=== PATIENT | female | born 1980 | race Caucasian/White ===

== ENCOUNTER 2016-10-18 09:08 | Inpatient (IN) ==
[~2016-10-18 09:08] MED LIST: *HR* Etomidate 20 MG/10 ML AMPUL IVP ONE; *HR* Succinylcholine 200 MG/10 ML VIAL IVP ONE
[2016-10-18] MEDS ORDERED: Ipratropium/Albuterol Neb 3 ML ONE (09:11)
[2016-10-18] MEDS ORDERED: Ipratropium/Albuterol Neb 3 ML IH ONE (09:18)
[2016-10-18] MEDS ORDERED: Piperacillin/Tazobactam 4.5 GM in D5% in Water (Mini-Bag+) 100 ML IVPB ONE (09:19)
[2016-10-18] MEDS ORDERED: 0.9 % Sodium Chloride 1,000 ML IVC ONE (09:22)
--- NOTE | 2016-10-18 09:25 | Emergency Department Note ---
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 The patient said she has had several days of shortness of breath was significantly worsened this morning, worse with exertion, worsened at home, no medication has been used. She does have cough and rhinorrhea but no hemoptysis. No sneezing. No recorded fever or blurred vision. Does have pain and swelling of the lower extremities. No bruising of the skin or skin rash. No blood in the urine or stool. No weight loss. She has received radiation for her brain tumor at the [facility] but has not had chemotherapy or surgery. Social history: Smoker, lives with her and children - Related Data Home Medications Medication Instructions Recorded Confirmed Folic Acid 1 mg PO DAILY 06/17/16 10/18/16 Previous Rx's Medication Instructions Recorded Albuterol Sulfate [Albuterol 2 puff IH Q4HR PRN #1 unit 11/15/15 Inhaler] Docusate Sodium [Dok] 250 mg PO DAILY #30 capsule 03/09/16 Biotin/Calcium Carbonate [Biotin 1 each PO DAILY #30 tablet 04/17/16 800 Mcg Tablet] Simethicone [Gas-X] 80 mg PO DAILY #30 tab.chew 08/16/16 Ondansetron [Zofran ODT] 8 mg SL Q4HR #120 tab.rapdis 08/28/16 Ascorbic Acid [Vitamin C] 1 tab PO DAILY #30 tablet 09/11/16 Bisacodyl [Dulcolax] 5 - 10 mg PO DAILY PRN #60 tablet 09/11/16 Ferrous Sulfate [Iron] 325 mg PO DAILY #30 capsule.er 09/11/16 Nystatin [Nystatin Suspension] 5 ml PO QID #120 ml 09/17/16 Guaifenesin 200 mg PO Q4H PRN #180 tablet 09/27/16 Gabapentin [Neurontin] 800 mg PO QID #120 tablet 10/05/16 HYDROcodone/Acet 10/325 mg [[place] 1 - 2 tab PO Q4HR PRN #240 tab 10/05/16 10-325 mg] Alprazolam [Xanax 1 MG Tablet] 1 - 2 mg PO TID PRN #126 tablet 10/15/16 Dexamethasone [Decadron] 4 mg PO BID #60 tablet 10/15/16 Famotidine [Pepcid] 20 mg PO DAILY #30 tablet 10/15/16 Allergies Allergy/AdvReac Type Severity Reaction Status Date / Time ethinyl estradiol Allergy Hives Verified 03/27/16 17:05 [From [employer] (28)] norgestimate Allergy Hives Verified 03/27/16 17:05 [From [employer] (28)] Review of Systems: Constitutional: No fever Vision: No blurred vision ENT: + rhinorrhea Respiratory: + cough Allergic: No allergies : No blood in urine GI: No blood in stool Hematologic: No bruising Dermatologic: No skin rash Musculoskeletal: + pain in the extremities Neuro: No numbness of the extremities Past Medical History - Past Medical History Medical history: Reports: asthma, cancer, seizures Surgical history: Reports: other Psychiatric history: Reports: depression 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 EYES: PERRL, no scleral icterus. NOSE: The nose is normal in appearance without rhinorrhea RESP: Normal chest excursion with respiration; breath sounds with bilateral symmetric coarse crackles and wheezing CARD: Regular rhythm, without murmurs, rub or gallop ABD: Non-distended; non-tender, soft,without rigidity, rebound or guarding SKIN: Normal for age and race; warm and dry; no apparent lesions Extremities: No swelling lower extremities - General Limitations: other General appearance: alert, in distress Course Vital Signs Temperature 99.8 F H 10/18/16 09:10 Pulse Rate 130 10/18/16 09:10 Respiratory Rate 34 10/18/16 09:10 Blood Pressure 94/39 10/18/16 09:10 O2 Sat by Pulse Oximetry 97 10/18/16 09:10 Temperature 97.0 F L 10/18/16 20:53 Pulse Rate 71 10/18/16 20:48 Respiratory Rate 15 10/18/16 20:48 Blood Pressure 97/62 10/18/16 20:48 O2 Sat by Pulse Oximetry 95 10/18/16 20:48 Oxygen Delivery Oxygen Delivery Ventilator Shortness of Breath/Dyspnea - MDM Narrative Medical decision making narrative: I did see the patient upon arrival, she is placed on a BiPAP, 2 L IV fluid bolus , stat portable chest x-ray, labs, Zosyn and vancomycin, will be admitted to intensive care unit. Patient states that she would agree to intubation if necessary but only as last resort. No family history is yet here. 9:27 I did go back and check on the patient again. Her oxygen saturation is 99% on BiPAP but she is still very tachypneic With a rate in the 40s. I did have a long conversation with the states the patient does have inoperable brain cancer and she has been treated at the [facility]. Is not currently taking antibiotics. He thinks that the paramedics got an oxygen saturation in the 80s at home. He states the patient does use home oxygen. The patient will need to be intubated but I we will fluid resuscitate first. I did review the separable chest x-ray which does show interstitial infiltrates which could be from edema versus infection. 0942 I did review the EKG showing sinus tachycardia rate of 129 bpm. Patient is tiring out. She agrees to intubation. Will be given succinylcholine 100 mg and etomidate 10 mg. The patient's is not in the emergency department at this time but we will try to locate him. 0950 I did discuss with the who is at bedside. He is also comfortable with the approach. Procedure: The patient did receive etomidate 10 mg and succinylcholine 100 mg and the patient had an oxygen saturation of 99% and the patient was easily intubated on the first attempt with good bilateral breath sounds and no air auscultated over the stomach and the CO2 monitor did confirm placement/have good color change. I will discuss further with the avionics mechanic ICU admission. Postintubation chest x-ray will be ordered. The patient will be placed on propofol with a bolus then drip 1008 Critical care time: 40 minutes I did speak with Dr. Lott who is the smokehouse operator with pulmonary and she will confirm that availability and accept the patient for admission 1032 Accepted by avionics mechanic. ABG ordered. Resident is here to see the pt 1049 - Medical Records Medical records reviewed: Yes I reviewed the patient's medical records. - Lab Data Lab results reviewed: Yes I reviewed the patient's lab results. Result diagrams: 10/18/16 09:46 10/18/16 09:46 Lab Results 10/18/16 10/18/16 10/18/16 Range/Units 09:46 09:46 09:46 WBC 13.7 H (4.3-11.1) K/mcL RBC 3.85 (3.82-4.97) M/mcL Hgb 11.7 (11.5-15.4) g/dL Hct 37.7 (35.3-44.9) % MCV 97.9 (83.0-100.0) fL MCH 30.4 (28.0-33.3) pg MCHC 31.0 L (31.6-35.5) g/dL RDW 16.8 H (11.5-14.5) % Plt Count 307 (140-400) K/mcL MPV 9.5 (9.4-12.4) fL Seg Neutrophils % 60.0 % Band Neutrophils % 24.0 H (0-4) % Lymphocytes % 16.0 % Neutrophils # 11.5 H (1.6-8.9) K/mcL Lymphocytes # 2.2 (0.6-4.6) K/mcL Toxic Granulation Present A (Not Present) Dohle Bodies Present A (Not Present) Platelet Estimate Normal (Normal) Sodium 143 (136-145) mEq/L Potassium 3.8 (3.5-4.5) mEq/L Chloride 105 (98-109) mEq/L Carbon Dioxide 27 (19-29) mEq/L BUN 9 (7-20) mg/dL Creatinine 0.63 (0.57-1.11) mg/dL Est GFR ( Amer) > 60 (> 60) Est GFR (Non-Af Amer) > 60 (> 60) BUN/Creatinine Ratio 14 (6-26) Glucose 87 (70-99) mg/dL Calculated Osmolality 294 (280-300) Lactic Acid 0.9 (0.5-2.2) mmol/L Calcium 9.6 (8.6-10.8) mg/dL B-Natriuretic Peptide (0-100) pg/mL 10/18/16 Range/Units 09:46 WBC (4.3-11.1) K/mcL RBC (3.82-4.97) M/mcL Hgb (11.5-15.4) g/dL Hct (35.3-44.9) % MCV (83.0-100.0) fL MCH (28.0-33.3) pg MCHC (31.6-35.5) g/dL RDW (11.5-14.5) % Plt Count (140-400) K/mcL MPV (9.4-12.4) fL Seg Neutrophils % % Band Neutrophils % (0-4) % Lymphocytes % % Neutrophils # (1.6-8.9) K/mcL Lymphocytes # (0.6-4.6) K/mcL Toxic Granulation (Not Present) Dohle Bodies (Not Present) Platelet Estimate (Normal) Sodium (136-145) mEq/L Potassium (3.5-4.5) mEq/L Chloride (98-109) mEq/L Carbon Dioxide (19-29) mEq/L BUN (7-20) mg/dL Creatinine (0.57-1.11) mg/dL Est GFR ( Amer) (> 60) Est GFR (Non-Af Amer) (> 60) BUN/Creatinine Ratio (6-26) Glucose (70-99) mg/dL Calculated Osmolality (280-300) Lactic Acid (0.5-2.2) mmol/L Calcium (8.6-10.8) mg/dL B-Natriuretic Peptide 22 (0-100) pg/mL - Radiology Data Radiology results reviewed: Yes I reviewed the patient's radiology results. Chest X-Ray 10/18/16 10:12 IMPRESSION: Diffuse increased interstitial changes are identified throughout the lungs bilaterally, with some areas of nodular like opacity. This could represent alveolar and interstitial disease in the setting of edema or infection, however recommend follow-up radiographs to document resolution as underlying diffuse pulmonary nodules are also in the differential in a patient with a history of cancer. D/ / Neftali Walters MD / Neftali Walters MD Interpreting Provider: Neftali Walters MD - EKG Data EKG attestation: Yes I reviewed and interpreted this EKG.
[2016-10-18] MEDS ORDERED: Ondansetron 4 MG/2 ML VIAL IVP ONE (09:27)
[2016-10-18] MEDS ORDERED: *HR* Etomidate 20 MG/10 ML AMPUL IVP ONE (09:48)
[2016-10-18] MEDS ORDERED: *HR* Succinylcholine 200 MG/10 ML VIAL IVP ONE (09:48)
[2016-10-18 09:53] LABS: Hematocrit 37.7 % (35.3-44.9); Hemoglobin 11.7 g/dL (11.5-15.4); Mean Corpuscular Hemoglobin 30.4 pg (28.0-33.3); Mean Corpuscular Volume 97.9 fL (83.0-100.0); Mean Platelet Volume 9.5 fL (9.4-12.4); Platelet Count 307 K/mcL (140-400); Red Blood Count 3.85 M/mcL (3.82-4.97); Red Cell Distribution Width 16.8 % (11.5-14.5)
[2016-10-18] MEDS ORDERED: Vancomycin 1,000 MG in D5% in Water 250 ML IVPB ONE (10:00)
[2016-10-18] MEDS: *HR* Morphine 2 MG/ML SYRINGE IVP ONE ×3 (10:08→10:28)
[2016-10-18] MEDS ORDERED: *HR* Propofol 500 MG/50 ML BOTTLE IVP ONE (10:08)
[2016-10-18] MEDS ORDERED: Propofol 500 MG/50 ML INFUS..BTL ONE (10:11)
[2016-10-18 10:12] LABS: BUN/Creatinine Ratio 14 (6-26); Blood Urea Nitrogen 9 mg/dL (7-20); Calcium 9.6 mg/dL (8.6-10.8); Carbon Dioxide 27 mEq/L (19-29); Chloride 105 mEq/L (98-109); Glucose 87 mg/dL (70-99); Osmolality,Calculated 294 (280-300); Potassium 3.8 mEq/L (3.5-4.5); Sodium 143 mEq/L (136-145); eGFR For African Americans > 60 (> 60); eGFR For Non-African Americans > 60 (> 60)
[2016-10-18] MEDS ORDERED: Propofol 500 MG/50 ML INFUS..BTL IVC SCH (10:15)
[2016-10-18] MEDS ORDERED: *HR* Morphine 2 MG/ML SYRINGE IVP ONE (10:27)
[2016-10-18 10:32] LABS: Lymphocytes # 2.2 K/mcL (0.6-4.6); Neutrophils # 11.5 K/mcL (1.6-8.9)
[2016-10-18 10:33] LABS: Dohle Bodies Present (Not Present); Platelet Estimate Normal (Normal); Toxic Granulation Present (Not Present)
[2016-10-18] MEDS ORDERED: 0.9 % Sodium Chloride 1,000 ML ONE (10:54)
[2016-10-18] MEDS ORDERED: Acetaminophen 325 MG TABLET PO PRN (11:25)
[2016-10-18] MEDS ORDERED: Naloxone 0.4 MG/ML INJ IVP PRN (11:25)
[2016-10-18] MEDS ORDERED: Lacri-Lube 3.5 GM TUBE BOTH EYES PRN (11:29)
[2016-10-18 11:36] LABS: ABG Base Excess 1.7 mEq/L (-2.0 to 3.0); ABG HCO3 28.1 mEQ/L (21-27); ABG Oxygen Saturation 99 % (95-98); ABG PCO2 52 mmHg (35-45); ABG PH 7.34 pH Units (7.32-7.45); ABG PO2 120 mmHg (85-104); ABG TCO2 29.7 mEq/L (20-26)
[2016-10-18 11:37] LABS: Blood Gas FiO2 50 %
[2016-10-18] MEDS: Ipratropium/Albuterol Neb 3 ML IH SCH ×3 (11:50→20:09)
[2016-10-18] MEDS: Lacri-Lube 3.5 GM TUBE BOTH EYES SCH ×4 (12:52→23:10)
[2016-10-18] MEDS: Gabapentin 400 MG CAPSULE PO SCH ×3 (13:00→19:46)
--- NOTE | 2016-10-18 13:07 | Pulmonology History & Physical ---
<Isma Escalante - Last Filed: 10/18/16 12:56> Date of Encounter: 10/18/16 Time of Encounter: 12:57 Assessment and Plan (1) Acute and chronic respiratory failure Current visit: Yes Status: Acute 35 y/o F hx of pontine glioma s/p radiation therapy, cigarette smoking, aspiration pneumonia, dysphagia COPD on 4L home O2 presented with worsening sob and productive cough of one week with chills. Patient had to increase O2 to 5L at home. Patient was tachypneic on arrival and started on BIPAP. Her O2 saturations were well maintained, but her work of breathing worsened. CXR showed new interstitial infiltrates. Patient began tiring out and agreed to intubation. WBC 13 with 24% bands, lactic acid 0.9. ABG: pH 7.34 pCO2 52 pO2 120 on AC mode 2nd to aspiraiton/HAP Patient has hx of dysphagia 2nd to pontine glioma and multiple instances of aspiration pneumonia in the past. In the past she had PEG tube but it was removed in May 2016. Since then patient' s says she has had 7-8 occurances of pneumonia. Given vanc and zosyn in ED. Will continue this and start levaquin to cover atypicals sputum, blood cultures, respiratory infectious panel sent. Duonebs, steroids, symbicort legionella and strep urine antigens sent repeat CXR tomorrow morning CBC, BMP AM NPO Fentanyl and propofol for sedation GI prophylaxis Qualifiers: Respiratory failure complication: hypoxia and hypercapnia Qualified Code(s) : J96.21 - Acute and chronic respiratory failure with hypoxia; J96.22 - Acute and chronic respiratory failure with hypercapnia (2) Aspiration pneumonia Current visit: No Status: Suspected as stated above. Qualifiers: Aspiration pneumonia type: unspecified Laterality: bilateral Lung location: unspecified part of lung Qualified Code(s): J69.0 - Pneumonitis due to inhalation of food and vomit (3) Brain cancer Current visit: Yes Status: Acute Pontine glioma diagnosed in 2014. Has undergone radiation therapy (last dose in september 2016). Not candidate for surgical therapy. Patient decided not to undergo chemo due to side effects profile. has hx of dysphagia, slurred speech, right sided weakness and seizures (stated 2nd to benzodiazepine withdrawal) on dexamethasone to prevent inflammation 2nd to tumor. 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 will d/c for now as patient is sedated with propofol and fentanyl (5) DVT prophylaxis Current visit: Yes Status: Acute EPCDs and lovenox 30mg daily. (6) Infestation by bed bug Current visit: Yes Status: Acute Found to have bed bugs and head lice. -room was cleaned and patient's clothes were changed -will order nix History of Present Illness Chief complaint: dyspnea HPI: Ms. Perez is a 35 year old female presented with complaint of worsening dyspnea of one week with productive yellow sputum, chills. Had to increase her home oxygen from 4 to 5L. Sick contacts include her children who had URI. This hx was obtained from patient's as she was intubated at this point. Patient RR was 40 on presentation. She was initially placed on BiPAP but became tired due to work of breathing and agreed to be intubated. Patient has hx of cigarette smoking 18 pack year hx, COPD, and on 4L home O2. WBC 13, BANDs 24% CXR showed diffuse b/l interstitial changes possibly atypical pneumonia. BNP 22 , lactic acid 0.9. Patient was diagnosed with brainstem glioma in Fall of 2014. Since then she has had dysphagia, slurred speech. Patient has gone radiation therapy. She had PEG tube placed last year 12/2015 due to her dysphagia and recurrent aspiration pneumonia. PEG tube was removed May 2016 and since then patient has had pneumonia 7-8x. She is on dexamethasone chronically to decrease inflammation. She was last admitted to [facility] in June for aspiration pneumonia but left [place] before she could be evaluated and treated. Past Med Surg Social Fam HX - Past Medical History Medical history: asthma, cancer, seizures Psychiatric history: depression - Past Surgical History Surgical History: other - Social History Smoking Status: Current some day smoker Smokeless Tobacco Status: No Alcohol use: none Drug use: none Medications and Allergies Albuterol Sulfate [Albuterol Inhaler] 2 puff IH Q4HR PRN #1 unit 11/15/15 [Rx] Docusate Sodium [Dok] 250 mg PO DAILY #30 capsule 03/09/16 [Rx] Biotin/Calcium Carbonate [Biotin 800 Mcg Tablet] 1 each PO DAILY #30 tablet 10/28 [Rx] Folic Acid 1 mg PO DAILY 06/17/16 [History] Simethicone [Gas-X] 80 mg PO DAILY #30 tab.chew 08/16/16 [Rx] Ondansetron [Zofran ODT] 8 mg SL Q4HR #120 tab.rapdis 08/28/16 [Rx] Ascorbic Acid [Vitamin C] 1 tab PO DAILY #30 tablet 09/11/16 [Rx] Bisacodyl [Dulcolax] 5 - 10 mg PO DAILY PRN #60 tablet 09/11/16 [Rx] Ferrous Sulfate [Iron] 325 mg PO DAILY #30 capsule.er 09/11/16 [Rx] Nystatin [Nystatin Suspension] 5 ml PO QID #120 ml 09/17/16 [Rx] Guaifenesin 200 mg PO Q4H PRN #180 tablet 09/27/16 [Rx] Gabapentin [Neurontin] 800 mg PO QID #120 tablet 10/05/16 [Rx] HYDROcodone/Acet 10/325 mg [Liberal 10-325 mg] 1 - 2 tab PO Q4HR PRN #240 tab [Rx] Alprazolam [Xanax 1 MG Tablet] 1 - 2 mg PO TID PRN #126 tablet 10/15/16 [Rx] Dexamethasone [Decadron] 4 mg PO BID #60 tablet 10/15/16 [Rx] Famotidine [Pepcid] 20 mg PO DAILY #30 tablet 10/15/16 [Rx] Allergies ethinyl estradiol [From [employer] (28)] Allergy (Verified 03/27/16 17:05) Hives norgestimate [From [employer] (28)] Allergy (Verified 03/27/16 17:05) Hives ROS unobtainable: due to endotracheal tube, due to mental status All Systems: A 10-system review of systems was performed and is negative for pertinent findings except as documented above in the HPI. Physical Examination Vital Signs: Vital Signs, Last 4 Hours Temp Pulse Resp BP Pulse Ox 10/18/16 12:01 98.5 F 95 20 103/66 95 10/18/16 11:50 22 134/85 94 10/18/16 11:23 16 95/54 General appearance: no acute distress, alert Eyes: nonicteric Mallampati (class): 2 Neck: no JVD Effort: mildly labored, other (Mechanical ventilation ) Auscultation: bilateral: other (b/l coarse ) Cardiovascular: regular rate and rhythm Gastrointestinal: normoactive bowel sounds, soft, non-tender, non-distended Integumentary: normal Extremities: no cyanosis, no edema, no clubbing, pink and warm, pulses normal Musculoskeletal: no deformities unable to assess due to mental status Results - Laboratory Findings CBC and BMP: 10/18/16 09:46 10/18/16 09:46 ABG ABG pH 7.34 pH Units (7.32-7.45) 10/18/16 11:25 ABG pCO2 52 mmHg (35-45) H 10/18/16 11:25 ABG pO2 120 mmHg (85-104) H 10/18/16 11:25 ABG O2 Saturation 99 % (95-98) H 10/18/16 11:25 Abnormal lab findings: Abnormal lab results WBC 13.7 K/mcL (4.3-11.1) H 10/18/16 09:46 MCHC 31.0 g/dL (31.6-35.5) L 10/18/16 09:46 RDW 16.8 % (11.5-14.5) H 10/18/16 09:46 Band Neutrophils % 24.0 % (0-4) H 10/18/16 09:46 Neutrophils # 11.5 K/mcL (1.6-8.9) H 10/18/16 09:46 Toxic Granulation Present (Not Present) A 10/18/16 09:46 Dohle Bodies Present (Not Present) A 10/18/16 09:46 ABG pCO2 52 mmHg (35-45) H 10/18/16 11:25 ABG pO2 120 mmHg (85-104) H 10/18/16 11:25 ABG HCO3 28.1 mEQ/L (21-27) H 10/18/16 11:25 ABG Total CO2 29.7 mEq/L (20-26) H 10/18/16 11:25 ABG O2 Saturation 99 % (95-98) H 10/18/16 11:25 POC Glucose 109 (58-89) H 10/18/16 11:56 - Diagnostic Findings Chest x-ray: report reviewed <KathieanaCheryl velarde Maryellen - Last Filed: 10/18/16 15:39> Date of Encounter: 10/18/16 History of Present Illness HPI: Ms. Perez is a 35 year old female All Systems: A 10-system review of systems was performed and is negative for pertinent findings except as documented above in the HPI. Physical Examination Vital Signs: Vital Signs, Last 4 Hours Temp Pulse Resp BP Pulse Ox 10/18/16 15:00 89 21 90/67 96 10/18/16 14:00 91 20 94/61 95 10/18/16 13:01 92 21 96/77 94 10/18/16 13:00 18 102/70 93 10/18/16 12:01 98.5 F 95 20 103/66 95 10/18/16 11:50 22 134/85 94 10/18/16 11:23 16 95/54 Results - Laboratory Findings CBC and BMP: 10/18/16 09:46 10/18/16 09:46 ABG ABG pH 7.34 pH Units (7.32-7.45) 10/18/16 11:25 ABG pCO2 52 mmHg (35-45) H 10/18/16 11:25 ABG pO2 120 mmHg (85-104) H 10/18/16 11:25 ABG O2 Saturation 99 % (95-98) H 10/18/16 11:25 Abnormal lab findings: Abnormal lab results WBC 13.7 K/mcL (4.3-11.1) H 10/18/16 09:46 MCHC 31.0 g/dL (31.6-35.5) L 10/18/16 09:46 RDW 16.8 % (11.5-14.5) H 10/18/16 09:46 Band Neutrophils % 24.0 % (0-4) H 10/18/16 09:46 Neutrophils # 11.5 K/mcL (1.6-8.9) H 10/18/16 09:46 Toxic Granulation Present (Not Present) A 10/18/16 09:46 Dohle Bodies Present (Not Present) A 10/18/16 09:46 ABG pCO2 52 mmHg (35-45) H 10/18/16 11:25 ABG pO2 120 mmHg (85-104) H 10/18/16 11:25 ABG HCO3 28.1 mEQ/L (21-27) H 10/18/16 11:25 ABG Total CO2 29.7 mEq/L (20-26) H 10/18/16 11:25 ABG O2 Saturation 99 % (95-98) H 10/18/16 11:25 POC Glucose 109 (58-89) H 10/18/16 11:56 - Attending Attestation I examined this patient and my medical decision-making was reviewed with the TRANSPORT PILOT/PA/Advanced Practice Nurse/Resident Physician. I agree with the documented findings, disposition and treatment plan as described except to the extent set forth below. Patient seen and examined. Labs, radiology, chart personally reviewed. Agree with resident's history and physical, assessment, plan with following comments: ELEVATOR SUPERVISOR: Patient follows commands, Will adjust sedation to keep patient comfortable and vent synchrony. Pulmonary: Acceptable oxygenation and ventilation. Changed vent to VC+ for more comfort and tried SBT with pressure support, however patient didn't feel comfortable and changed to full support again. I will add Symbicort to her treatment and my suspicion this is AECOPD. Nicotine patch to be added to her treatment. It is unusual to have copd when she is young, she will need outpatient work up, especially for A1AT. Cardiovascular: stable GI: Nutrition per dietary and GI prophylaxis per routine Heme: DVT prophylaxis per routine ID: Continue antibiotics and plan to de-escalation Renal; urine out put and renal funtion reviewed Endorcine: blood glucose is monitored Lines: all lines checked and no evidence of infections Skin: skin care to prevent pressure ulcers per nursing routine care I spent 35 min of Critical Care time with this patient. It involved decision making of high complexity to assess, manipulate, and support vital organ system failure and/or to prevent further life threatening deterioration of the patient' s condition. The time involved in the performance of separately reportable procedures was not counted toward critical care time.
[2016-10-18] MEDS: FentaNYL (PF) 1,000 MCG in 0.9 % Sodium Chloride 80 ML IVC SCH ×2 (13:13→19:35)
[2016-10-18] MEDS ORDERED: Permethrin Cream Rinse 60 ML LIQUID TP ONE (13:35)
[2016-10-18] MEDS: Levofloxacin 750 MG/150 ML 750 MG/150 ML BAG IVPB SCH (13:52)
[2016-10-18] MEDS: methylPREDNISolone 125 MG/2 ML VIAL IVP SCH ×3 (13:52→23:08)
[2016-10-18 14:13] LABS: Adenovirus Not Detected (Not Detect); Bordetella Pertussis Not Detected (Not Detect); Chlamydophila pneumoniae Not Detected (Not Detect); Coronavirus 229E Not Detected (Not Detect); Coronavirus HKU1 Not Detected (Not Detect); Coronavirus NL63 Not Detected (Not Detect); Coronavirus OC43 Not Detected (Not Detect); Human Metapneumovirus Not Detected (Not Detect); Human Rhinovirus/Enterovirus Not Detected (Not Detect); Influenza A Subtype 2009 H1 Not Detected (Not Detect); Influenza A Untypeable Not Detected (Not Detect); Influenza B Not Detected (Not Detect); Mycoplasma pneumoniae Not Detected (Not Detect); Parainfluenza Virus 1 Not Detected (Not Detect); Parainfluenza Virus 2 Not Detected (Not Detect); Parainfluenza Virus 3 Not Detected (Not Detect); Parainfluenza Virus 4 Not Detected (Not Detect); Respiratory Syncytial Virus Not Detected (Not Detect)
--- NOTE | 2016-10-18 16:03 | Electrocardiograph Report ---
[address] [place], [place] [address] Test Date: 2016-10-18 Pat Name: Neel Perez Department: 103 Room: [facility] Gender: F Turnaround Engineer: NOELLE : 1980 Requested By: Jimmy Bartlett Order Number: [id number] Reading MD: Doni Yeh MD Measurements Intervals [place] Rate: 129 P: 74 OK: 130 QRS: 17 QRSD: 86 T: 41 QT: 297 QTc: 373 Interpretive Statements SINUS TACHYCARDIA Electronically Signed On 10-18-2016 16:01:36 EDT by Doni Yeh MD
[2016-10-18] MEDS: Piperacillin/Tazobactam 3.375 GM in D5% in Water (Mini-Bag+) 100 ML IVPB SCH (17:04)
[2016-10-18] MEDS: Budesonide/Formoterol 160/4.5 MDI IH SCH (20:09)
[2016-10-18] MEDS ORDERED: Chlorhexidine Rinse 15 ML MOUTHWASH MM SCH (21:00)
[2016-10-18] MEDS ORDERED: Vancomycin 1,000 MG in D5% in Water 250 ML IVPB SCH (23:00)
[2016-10-19] MEDS: Piperacillin/Tazobactam 3.375 GM in D5% in Water (Mini-Bag+) 100 ML IVPB SCH ×3 (00:02→16:44)
[2016-10-19] MEDS: Ipratropium/Albuterol Neb 3 ML IH SCH ×6 (00:24→20:45)
[2016-10-19] MEDS: Lacri-Lube 3.5 GM TUBE BOTH EYES SCH (00:46)
[2016-10-19] MEDS: FentaNYL (PF) 1,000 MCG in 0.9 % Sodium Chloride 80 ML IVC SCH (00:52)
[2016-10-19 03:12] LABS: Basophils % 0.1 %; Hematocrit 32.7 % (35.3-44.9); Hemoglobin 9.9 g/dL (11.5-15.4); Immature Granulocytes % 1.2 % (0-4); Lymphocytes # 0.7 K/mcL (0.6-4.6); Lymphocytes % 7.6 %; Mean Corpuscular HGB Conc 30.3 g/dL (31.6-35.5); Mean Corpuscular Hemoglobin 29.7 pg (28.0-33.3); Mean Corpuscular Volume 98.2 fL (83.0-100.0); Mean Platelet Volume 9.5 fL (9.4-12.4); Monocytes # 0.1 K/mcL (0.0-1.3); Neutrophils # 8.2 K/mcL (1.6-8.9); Platelet Count 288 K/mcL (140-400); Red Blood Count 3.33 M/mcL (3.82-4.97); Red Cell Distribution Width 16.8 % (11.5-14.5); Segmented Neutrophils % 90.1 %
[2016-10-19 03:23] LABS: BUN/Creatinine Ratio 11 (6-26); Blood Urea Nitrogen 7 mg/dL (7-20); Calcium 9.6 mg/dL (8.6-10.8); Carbon Dioxide 26 mEq/L (19-29); Chloride 104 mEq/L (98-109); Glucose 112 mg/dL (70-99); Magnesium 1.9 mg/dL (1.6-2.6); Osmolality,Calculated 293 (280-300); Phosphorous 5.2 mg/dL (2.3-4.7); Potassium 4.3 mEq/L (3.5-4.5); Sodium 142 mEq/L (136-145); eGFR For African Americans > 60 (> 60); eGFR For Non-African Americans > 60 (> 60)
[2016-10-19 03:38] LABS: Dohle Bodies Present (Not Present); Toxic Granulation Present (Not Present)
[2016-10-19 03:39] LABS: Platelet Estimate Normal (Normal)
[2016-10-19] MEDS: methylPREDNISolone 125 MG/2 ML VIAL IVP SCH (05:03)
[2016-10-19 05:21] LABS: ABG Base Excess 9.5 mEq/L (-2.0 to 3.0); ABG HCO3 35.9 mEQ/L (21-27); ABG Oxygen Saturation 94 % (95-98); ABG PCO2 58 mmHg (35-45); ABG PO2 71 mmHg (85-104); ABG TCO2 37.7 mEq/L (20-26)
[2016-10-19 05:28] LABS: Blood Gas FiO2 30 %
[2016-10-19] MEDS ORDERED: *HR* Enoxaparin 30 MG/0.3 ML SYRINGE SQ SCH (06:00)
[2016-10-19] MEDS: Budesonide/Formoterol 160/4.5 MDI IH SCH ×2 (07:39→20:46)
[2016-10-19] MEDS ORDERED: Aminoglycoside Consult 1 EACH MC ONE (08:34)
--- NOTE | 2016-10-19 08:44 | Pulmonology Progress Note ---
<Isma Escalante - Last Filed: 10/19/16 08:56> Date of Encounter: 10/19/16 Time of Encounter: 08:42 Assessment and Plan (1) Acute and chronic respiratory failure Current Visit: Yes Status: Acute 35 y/o F hx of pontine glioma s/p radiation therapy, cigarette smoking, aspiration pneumonia, dysphagia COPD on 4L home O2 presented with worsening sob and productive cough of one week with chills. Patient had to increase O2 to 5L at home. Patient was tachypneic on arrival and started on BIPAP. Her O2 saturations were well maintained, but her work of breathing worsened. CXR showed new interstitial infiltrates. Patient began tiring out and agreed to intubation. WBC 13 with 24% bands, lactic acid 0.9. ABG: pH 7.34 pCO2 52 pO2 120 on AC mode 2nd to COPD exacerbation/ possible aspiration pneumonia With worsening dyspnea, and productive cough and increase in oxygenation requirement patient likely had COPD exacerbation. 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 In the past she had PEG tube but it was removed in May 2016. Since then patient' s says she has had 7-8 occurances of pneumonia. d/c vanc continue zosyn and levaquin day 2: will descalate depending on culture sputum, blood cultures, respiratory infectious panel sent and prelim are negative legionella and strep urine antigens sent pending repeat CXR no change Patient is extubated and on 2L O2 at 98% SPO2 Bedside swallow start regular diet Qualifiers: Respiratory failure complication: hypoxia and hypercapnia Qualified Code(s) : J96.21 - Acute and chronic respiratory failure with hypoxia; J96.22 - Acute and chronic respiratory failure with hypercapnia (2) Aspiration pneumonia Current Visit: No Status: Suspected as stated above. Qualifiers: Aspiration pneumonia type: unspecified Laterality: bilateral Lung location: unspecified part of lung Qualified Code(s): J69.0 - Pneumonitis due to inhalation of food and vomit (3) Brain cancer Current Visit: Yes Status: Acute Pontine glioma diagnosed in 2014. Has undergone radiation therapy (last dose in september 2016). Not candidate for surgical therapy. Patient decided not to undergo chemo due to side effects profile. has hx of dysphagia, slurred speech, right sided weakness and seizures (stated 2nd to benzodiazepine withdrawal) on dexamethasone to prevent inflammation 2nd to tumor. restart home nystatin. 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 restart home xanax (5) DVT prophylaxis Current Visit: Yes Status: Acute EPCDs and lovenox 30mg daily. (6) Infestation by bed bug Current Visit: Yes Status: Acute Found to have bed bugs and head lice. -room was cleaned and patient's clothes were changed -treated with nix. Subjective Principal diagnosis: COPD exacerbation Interval history: No problems overnight. Extubated this morning. Patient is awake and alert. States sob is much improved. Objective PUL Vital signs: Last Vital Signs Temp 98.6 F 10/19/16 08:05 Pulse 56 10/19/16 06:13 Resp 13 10/19/16 08:04 BP 135/83 10/19/16 06:14 Pulse Ox 98 10/19/16 08:07 General appearance: alert Eyes: nonicteric ENT: oropharynx moist, oropharyngeal exudate present (thick white) Mallampati (class): 2 Neck: no lymphadenopathy Effort: mildly labored Auscultation: bilateral: diminished breath sounds, wheezes (b/l upper lobes) Cardiovascular: regular rate and rhythm Gastrointestinal: normoactive bowel sounds, soft, non-tender Integumentary: other (head lice, right knee abrasian, ) Extremities: no cyanosis, no edema, no clubbing, pink and warm, pulses normal normal mental status mood appropriate, affect normal Ventilator Settings Ventilator Settings: Ventilator Settings, Last 8 Hours Ventilator Mode CPAP Ventilator Mode CPAP Ventilator Mode VC+ Ventilator Mode VC+ Ventilator Mode VC+ Ventilator Mode VC+ Ventilator Mode VC+ Ventilator Mode VC+ Ventilator Mode VC+ Ventilator Mode VC+ Ventilator Mode VC+ Ventilator Tidal Volume 500 Setting Ventilator Tidal Volume 500 Setting Ventilator Tidal Volume 500 Setting Ventilator Tidal Volume 500 Setting Ventilator Tidal Volume 500 Setting Ventilator Tidal Volume 500 Setting Ventilator Tidal Volume 500 Setting Ventilator Tidal Volume 500 Setting Ventilator Tidal Volume 500 Setting Ventilator Respiratory Rate 12 Setting Ventilator Respiratory Rate 12 Setting Ventilator Respiratory Rate 12 Setting Ventilator Respiratory Rate 12 Setting Ventilator Respiratory Rate 12 Setting Ventilator Respiratory Rate 12 Setting Ventilator Respiratory Rate 12 Setting Ventilator Respiratory Rate 12 Setting Ventilator Respiratory Rate 12 Setting Actual Respiratory Rate 16 Actual Respiratory Rate 13 Actual Respiratory Rate 20 Actual Respiratory Rate 20 Actual Respiratory Rate 20 Actual Respiratory Rate 12 Actual Respiratory Rate 12 Actual Respiratory Rate 12 Actual Respiratory Rate 12 Actual Respiratory Rate 12 Positive End Expiratory 5 Pressure Positive End Expiratory 5 Pressure Positive End Expiratory 5 Pressure Positive End Expiratory 5 Pressure Positive End Expiratory 5 Pressure Positive End Expiratory 5 Pressure Positive End Expiratory 5 Pressure Positive End Expiratory 5 Pressure Positive End Expiratory 5 Pressure Positive End Expiratory 5 Pressure Positive End Expiratory 5 Pressure Peak Inspiratory Airway 13 Pressure Peak Inspiratory Airway 15 Pressure Peak Inspiratory Airway 12 Pressure Peak Inspiratory Airway 12 Pressure Peak Inspiratory Airway 12 Pressure Peak Inspiratory Airway 48 Pressure Peak Inspiratory Airway 48 Pressure Peak Inspiratory Airway 48 Pressure Peak Inspiratory Airway 30 Pressure Peak Inspiratory Airway 30 Pressure Results - Laboratory Findings CBC and BMP: 10/19/16 02:54 10/19/16 02:54 ABG ABG pH 7.40 pH Units (7.32-7.45) 10/19/16 05:08 ABG pCO2 58 mmHg (35-45) H 10/19/16 05:08 ABG pO2 71 mmHg (85-104) L 10/19/16 05:08 ABG O2 Saturation 94 % (95-98) L 10/19/16 05:08 Abnormal lab findings: Abnormal lab results RBC 3.33 M/mcL (3.82-4.97) L 10/19/16 02:54 Hgb 9.9 g/dL (11.5-15.4) L D 10/19/16 02:54 Hct 32.7 % (35.3-44.9) L 10/19/16 02:54 MCHC 30.3 g/dL (31.6-35.5) L 10/19/16 02:54 RDW 16.8 % (11.5-14.5) H 10/19/16 02:54 Band Neutrophils % 24.0 % (0-4) H 10/18/16 09:46 Toxic Granulation Present (Not Present) A 10/19/16 02:54 Dohle Bodies Present (Not Present) A 10/19/16 02:54 ABG pCO2 58 mmHg (35-45) H 10/19/16 05:08 ABG pO2 71 mmHg (85-104) L 10/19/16 05:08 ABG HCO3 35.9 mEQ/L (21-27) H 10/19/16 05:08 ABG Total CO2 37.7 mEq/L (20-26) H 10/19/16 05:08 ABG O2 Saturation 94 % (95-98) L 10/19/16 05:08 ABG Base Excess 9.5 mEq/L (-2.0 to 3.0) H 10/19/16 05:08 Glucose 112 mg/dL (70-99) H 10/19/16 02:54 POC Glucose 109 (58-89) H 10/18/16 11:56 Phosphorus 5.2 mg/dL (2.3-4.7) H 10/19/16 02:54 - Microbiology Findings Microbiology Findings: Microbiology, Last 48 Hours 10/18/16 15:40 Sputum Culture - Preliminary Sputum - Diagnostic Findings Chest x-ray: report reviewed - Clinical Findings Intake & Output: Intake & Output 10/18/16 10/19/16 10/19/16 23:59 07:59 15:59 Intake Total 450 / 450 300 / 300 Output Total 250 / 250 1225 / 1225 Balance 200 / 200 -925 / -925 Consult Discharge Plan - Plan Referrals: NO,PCP [Non-Partnered Physician] - <Cheryl Garcia - Last Filed: 10/19/16 22:52> Date of Encounter: 10/19/16 Objective PUL Vital signs: Last Vital Signs Temp 98.6 F 10/19/16 12:00 Pulse 105 10/19/16 14:00 Resp 20 10/19/16 16:10 BP 131/80 10/19/16 09:00 Pulse Ox 95 10/19/16 16:10 Results - Laboratory Findings CBC and BMP: 10/19/16 02:54 10/19/16 02:54 ABG ABG pH 7.40 pH Units (7.32-7.45) 10/19/16 05:08 ABG pCO2 58 mmHg (35-45) H 10/19/16 05:08 ABG pO2 71 mmHg (85-104) L 10/19/16 05:08 ABG O2 Saturation 94 % (95-98) L 10/19/16 05:08 Abnormal lab findings: Abnormal lab results RBC 3.33 M/mcL (3.82-4.97) L 10/19/16 02:54 Hgb 9.9 g/dL (11.5-15.4) L D 10/19/16 02:54 Hct 32.7 % (35.3-44.9) L 10/19/16 02:54 MCHC 30.3 g/dL (31.6-35.5) L 10/19/16 02:54 RDW 16.8 % (11.5-14.5) H 10/19/16 02:54 Band Neutrophils % 24.0 % (0-4) H 10/18/16 09:46 Toxic Granulation Present (Not Present) A 10/19/16 02:54 Dohle Bodies Present (Not Present) A 10/19/16 02:54 ABG pCO2 58 mmHg (35-45) H 10/19/16 05:08 ABG pO2 71 mmHg (85-104) L 10/19/16 05:08 ABG HCO3 35.9 mEQ/L (21-27) H 10/19/16 05:08 ABG Total CO2 37.7 mEq/L (20-26) H 10/19/16 05:08 ABG O2 Saturation 94 % (95-98) L 10/19/16 05:08 ABG Base Excess 9.5 mEq/L (-2.0 to 3.0) H 10/19/16 05:08 Glucose 112 mg/dL (70-99) H 10/19/16 02:54 POC Glucose 109 (58-89) H 10/18/16 11:56 Phosphorus 5.2 mg/dL (2.3-4.7) H 10/19/16 02:54 - Microbiology Findings Microbiology Findings: Microbiology, Last 48 Hours 10/18/16 15:40 Sputum Culture - Preliminary Sputum Streptococcus pneumoniae Gram Negative Coccobacilli 10/18/16 15:35 Legionella Antigen - Final Urine,Catheterized Streptococcus pneumoniae Antigen (M - Final - Clinical Findings Intake & Output: Intake & Output 10/19/16 10/19/16 10/19/16 07:59 15:59 23:59 Intake Total 300 / 300 Output Total 1225 / 1225 Balance -925 / -925 - Attending Attestation I examined this patient and my medical decision-making was reviewed with the [employer] SERVIC[employer]ST[employer]ER/PA/Advanced Practice Nurse/Resident Physician. I agree with the documented findings, disposition and treatment plan as described except to the extent set forth below. Patient seen and examined. Labs, radiology, chart personally reviewed. Agree with resident's history and physical, assessment, plan with following comments: COUNCIL ON AGING DIRECTOR: Patient follows commands, Pulmonary: Acceptable oxygenation and ventilation and was successfully extubated. Advised patient to quit smoking and can follow up as outpatient. Continue current treatment. Cardiovascular: stable GI: Nutrition per dietary and GI prophylaxis per routine Heme: DVT prophylaxis per routine ID: Continue antibiotics and plan to de-escalation Renal; urine out put and renal funtion reviewed Endorcine: blood glucose is monitored Lines: all lines checked and no evidence of infections Skin: skin care to prevent pressure ulcers per nursing routine care Patient can be transferred to floor if remain stable.
[2016-10-19] MEDS ORDERED: ALPRAZolam 1 MG TABLET PO PRN (08:51)
[2016-10-19] MEDS ORDERED: Famotidine 20 MG TABLET PO SCH (09:00)
[2016-10-19] MEDS ORDERED: Pantoprazole 40 MG VIAL IVPB SCH (09:00)
[2016-10-19] MEDS: Nystatin SUSP 5 ML UD.LIQ PO SCH ×4 (09:24→19:30)
[2016-10-19] MEDS: Gabapentin 400 MG CAPSULE PO SCH ×4 (09:24→19:30)
[2016-10-19] MEDS ORDERED: Nicotine 14 MG PATCH.TD24 TD SCH (11:00)
[2016-10-19] MEDS ORDERED: *HR* HYDROcodone/Acet 10/325 mg TABLET PO PRN ×2 (11:41→14:56)
[2016-10-19] MEDS ORDERED: Vancomycin 1,000 MG in D5% in Water 250 ML IVPB SCH (12:00)
[2016-10-19] MEDS: Levofloxacin 750 MG/150 ML 750 MG/150 ML BAG IVPB SCH (12:25)
[2016-10-19] MEDS ORDERED: Acetaminophen 325 MG TABLET PO PRN (14:56)
[2016-10-19] MEDS ORDERED: Naloxone 0.4 MG/ML INJ IVP PRN (14:56)
[2016-10-19] MEDS: *HR* HYDROcodone/Acet 10/325 mg TABLET PO PRN ×2 (17:31→22:46)
[2016-10-19] MEDS: ALPRAZolam 1 MG TABLET PO PRN (22:53)
[2016-10-20] MEDS: Ipratropium/Albuterol Neb 3 ML IH SCH ×7 (00:43→23:00)
[2016-10-20] MEDS: Piperacillin/Tazobactam 3.375 GM in D5% in Water (Mini-Bag+) 100 ML IVPB SCH ×2 (00:55→08:47)
[2016-10-20 02:58] LABS: Basophils % 0.3 %; Hematocrit 33.9 % (35.3-44.9); Hemoglobin 10.5 g/dL (11.5-15.4); Immature Granulocytes % 3.3 % (0-4); Lymphocytes # 0.9 K/mcL (0.6-4.6); Lymphocytes % 7.1 %; Mean Corpuscular Hemoglobin 29.8 pg (28.0-33.3); Mean Corpuscular Volume 96.3 fL (83.0-100.0); Mean Platelet Volume 9.3 fL (9.4-12.4); Monocytes # 0.4 K/mcL (0.0-1.3); Monocytes % 3.2 %; Neutrophils # 10.2 K/mcL (1.6-8.9); Platelet Count 307 K/mcL (140-400); Red Blood Count 3.52 M/mcL (3.82-4.97); Red Cell Distribution Width 16.6 % (11.5-14.5); Segmented Neutrophils % 86.1 %
[2016-10-20 03:09] LABS: BUN/Creatinine Ratio 29 (6-26); Carbon Dioxide 31 mEq/L (19-29); Chloride 104 mEq/L (98-109); Glucose 133 mg/dL (70-99); Osmolality,Calculated 301 (280-300); Potassium 3.9 mEq/L (3.5-4.5); Sodium 143 mEq/L (136-145); eGFR For African Americans > 60 (> 60); eGFR For Non-African Americans > 60 (> 60)
[2016-10-20 03:10] LABS: Blood Urea Nitrogen 21 mg/dL (7-20)
[2016-10-20] MEDS: *HR* HYDROcodone/Acet 10/325 mg TABLET PO PRN ×4 (04:50→18:12)
[2016-10-20] MEDS ORDERED: *HR* Enoxaparin 40 MG/0.4 ML SYRINGE SQ SCH (06:00)
[2016-10-20] MEDS: *HR* Enoxaparin 40 MG/0.4 ML SYRINGE SQ SCH (06:08)
--- NOTE | 2016-10-20 07:13 | Pulmonology Progress Note ---
<Blair Magana - Last Filed: 10/20/16 13:15> Date of Encounter: 10/20/16 Time of Encounter: 07:13 Assessment and Plan (1) Acute on chronic respiratory failure Current Visit: Yes Status: Acute 35 y/o F hx of pontine glioma s/p radiation therapy, cigarette smoking, aspiration pneumonia, dysphagia COPD on 4L home O2 presented with worsening sob and productive cough of one week with chills. Patient had to increase O2 to 5L at home. Patient was tachypneic on arrival and started on BIPAP. Her O2 saturations were well maintained, but her work of breathing worsened. CXR showed new interstitial infiltrates. Patient began tiring out and agreed to intubation. WBC 13 with 24% bands, lactic acid 0.9. ABG: pH 7.34 pCO2 52 pO2 120 on AC mode 2nd to COPD exacerbation/ possible aspiration pneumonia With worsening dyspnea, and productive cough and increase in oxygenation requirement patient likely had COPD exacerbation. 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 In the past she had PEG tube but it was removed in May 2016. Since then patient' s says she has had 7-8 occurrences of pneumonia. d/c vanc Switched from zosyn and levaquin to rocephin today based on final sensitivity report of sputum culture blood cultures, respiratory infectious panel sent and prelim are negative legionella and strep urine antigens positive just for strep pneumo repeat CXR no change Patient was extubated yesterday, no acute overnight events, currently on 2L O2 at 95% SPO2, breathing fine. Pt has been transferred to medical floor this AM in stable condition, sign out has been given to admitting physician, Dr. Salgado today. Qualifiers: Qualified Code(s): J96.21 - Acute and chronic respiratory failure with hypoxia; J96.22 - Acute and chronic respiratory failure with hypercapnia (2) Aspiration pneumonia Current Visit: Yes Status: Acute Sputum culture came back positive for strep pneumo and gram negative coccobacilli, resistance to levaquin for strep pneumo, sensitive to rocephin, will switch to rocephin today, aspiration precaution, con't to trend lab and monitor VS. Qualifiers: Qualified Code(s): J69.0 - Pneumonitis due to inhalation of food and vomit (3) Brain cancer Current Visit: Yes Status: Acute Pontine glioma diagnosed in 2014. Has undergone radiation therapy (last dose in september 2016). Not candidate for surgical therapy. Patient decided not to undergo chemo due to side effects profile. has hx of dysphagia, slurred speech, right sided weakness and seizures (stated 2nd to benzodiazepine withdrawal) on dexamethasone to prevent inflammation 2nd to tumor. restarted home nystatin, f/u with her primary oncologist as outpt. Qualifiers: Qualified Code(s): C71.9 - Malignant neoplasm of brain, unspecified (4) Hx of anxiety disorder Current Visit: Yes Status: Acute hx of anxiety disorder on xanax at home. restart home xanax (5) DVT prophylaxis Current Visit: Yes Status: Acute Lovenox SQ daily. Subjective Principal diagnosis: COPD exacerbation Interval history: Pt seen and examined, no acute events overnight, pt was successfully extubated yesterday, this AM she was satting 95% on 2L of NC, resting comfortably in bed, she will be transferred to medical floor this AM. Objective PUL Vital signs: Last Vital Signs Temp 97.9 F 10/20/16 04:00 Pulse 66 10/20/16 04:00 Resp 18 10/20/16 04:55 BP 130/89 10/20/16 04:00 Pulse Ox 98 10/20/16 04:55 General appearance: no acute distress, alert Eyes: nonicteric ENT: oropharynx moist Neck: supple Auscultation: bilateral: diminished breath sounds (upper domínguez) Cardiovascular: regular rate and rhythm Gastrointestinal: soft, non-tender, non-distended Integumentary: other (head lice egg, right knee abrasian) Extremities: no cyanosis, no edema, no clubbing, pink and warm, pulses normal Musculoskeletal: no deformities normal mental status, non-focal exam, pupils equal and round, CN II-XII normal mood appropriate, affect normal Results - Laboratory Findings CBC and BMP: 10/20/16 02:51 10/20/16 02:51 ABG ABG pH 7.40 pH Units (7.32-7.45) 10/19/16 05:08 ABG pCO2 58 mmHg (35-45) H 10/19/16 05:08 ABG pO2 71 mmHg (85-104) L 10/19/16 05:08 ABG O2 Saturation 94 % (95-98) L 10/19/16 05:08 Abnormal lab findings: Abnormal lab results WBC 11.9 K/mcL (4.3-11.1) H 10/20/16 02:51 RBC 3.52 M/mcL (3.82-4.97) L 10/20/16 02:51 Hgb 10.5 g/dL (11.5-15.4) L 10/20/16 02:51 Hct 33.9 % (35.3-44.9) L 10/20/16 02:51 MCHC 31.0 g/dL (31.6-35.5) L 10/20/16 02:51 RDW 16.6 % (11.5-14.5) H 10/20/16 02:51 MPV 9.3 fL (9.4-12.4) L 10/20/16 02:51 Band Neutrophils % 24.0 % (0-4) H 10/18/16 09:46 Neutrophils # 10.2 K/mcL (1.6-8.9) H 10/20/16 02:51 Toxic Granulation Present (Not Present) A 10/19/16 02:54 Dohle Bodies Present (Not Present) A 10/19/16 02:54 ABG pCO2 58 mmHg (35-45) H 10/19/16 05:08 ABG pO2 71 mmHg (85-104) L 10/19/16 05:08 ABG HCO3 35.9 mEQ/L (21-27) H 10/19/16 05:08 ABG Total CO2 37.7 mEq/L (20-26) H 10/19/16 05:08 ABG O2 Saturation 94 % (95-98) L 10/19/16 05:08 ABG Base Excess 9.5 mEq/L (-2.0 to 3.0) H 10/19/16 05:08 Carbon Dioxide 31 mEq/L (19-29) H 10/20/16 02:51 BUN 21 mg/dL (7-20) H D 10/20/16 02:51 BUN/Creatinine Ratio 29 (6-26) H 10/20/16 02:51 Glucose 133 mg/dL (70-99) H 10/20/16 02:51 POC Glucose 109 (58-89) H 10/18/16 11:56 Calculated Osmolality 301 (280-300) H 10/20/16 02:51 Phosphorus 5.2 mg/dL (2.3-4.7) H 10/19/16 02:54 - Microbiology Findings Microbiology Findings: Microbiology, Last 48 Hours 10/18/16 15:40 Sputum Culture - Preliminary Sputum Streptococcus pneumoniae Gram Negative Coccobacilli 10/18/16 15:35 Legionella Antigen - Final Urine,Catheterized Streptococcus pneumoniae Antigen (M - Final - Clinical Findings Intake & Output: Intake & Output 10/19/16 10/19/16 10/20/16 15:59 23:59 07:59 Intake Total 100 / 100 450 / 450 Output Total 650 / 650 750 / 750 Balance -550 / -550 -300 / -300 Consult Discharge Plan - Plan Referrals: NO,PCP [Non-Partnered Physician] - <Cheryl Garcia M - Last Filed: 10/20/16 18:48> Date of Encounter: 10/20/16 Objective PUL Vital signs: Last Vital Signs Temp 97.7 F 10/20/16 15:37 Pulse 80 10/20/16 15:37 Resp 16 10/20/16 15:46 BP 121/87 10/20/16 15:46 Pulse Ox 98 10/20/16 15:46 Results - Laboratory Findings CBC and BMP: 10/20/16 02:51 10/20/16 02:51 ABG ABG pH 7.40 pH Units (7.32-7.45) 10/19/16 05:08 ABG pCO2 58 mmHg (35-45) H 10/19/16 05:08 ABG pO2 71 mmHg (85-104) L 10/19/16 05:08 ABG O2 Saturation 94 % (95-98) L 10/19/16 05:08 Abnormal lab findings: Abnormal lab results WBC 11.9 K/mcL (4.3-11.1) H 10/20/16 02:51 RBC 3.52 M/mcL (3.82-4.97) L 10/20/16 02:51 Hgb 10.5 g/dL (11.5-15.4) L 10/20/16 02:51 Hct 33.9 % (35.3-44.9) L 10/20/16 02:51 MCHC 31.0 g/dL (31.6-35.5) L 10/20/16 02:51 RDW 16.6 % (11.5-14.5) H 10/20/16 02:51 MPV 9.3 fL (9.4-12.4) L 10/20/16 02:51 Band Neutrophils % 24.0 % (0-4) H 10/18/16 09:46 Neutrophils # 10.2 K/mcL (1.6-8.9) H 10/20/16 02:51 Toxic Granulation Present (Not Present) A 10/19/16 02:54 Dohle Bodies Present (Not Present) A 10/19/16 02:54 ABG pCO2 58 mmHg (35-45) H 10/19/16 05:08 ABG pO2 71 mmHg (85-104) L 10/19/16 05:08 ABG HCO3 35.9 mEQ/L (21-27) H 10/19/16 05:08 ABG Total CO2 37.7 mEq/L (20-26) H 10/19/16 05:08 ABG O2 Saturation 94 % (95-98) L 10/19/16 05:08 ABG Base Excess 9.5 mEq/L (-2.0 to 3.0) H 10/19/16 05:08 Carbon Dioxide 31 mEq/L (19-29) H 10/20/16 02:51 BUN 21 mg/dL (7-20) H D 10/20/16 02:51 BUN/Creatinine Ratio 29 (6-26) H 10/20/16 02:51 Glucose 133 mg/dL (70-99) H 10/20/16 02:51 POC Glucose 109 (58-89) H 10/18/16 11:56 Calculated Osmolality 301 (280-300) H 10/20/16 02:51 Phosphorus 5.2 mg/dL (2.3-4.7) H 10/19/16 02:54 - Microbiology Findings Microbiology Findings: Microbiology, Last 48 Hours 10/18/16 15:40 Sputum Culture - Preliminary Sputum Streptococcus pneumoniae Gram Negative Coccobacilli 10/18/16 15:35 Legionella Antigen - Final Urine,Catheterized Streptococcus pneumoniae Antigen (M - Final - Clinical Findings Intake & Output: Intake & Output 10/20/16 10/20/16 10/20/16 07:59 15:59 23:59 Intake Total 450 / 450 480 / 480 240 / 240 Output Total 750 / 750 1100 / 1100 200 / 200 Balance -300 / -300 -620 / -620 40 / 40 Weight 65.771 kg - Attending Attestation I examined this patient and my medical decision-making was reviewed with the BANKER MASON/PA/Advanced Practice Nurse/Resident Physician. I agree with the documented findings, disposition and treatment plan as described except to the extent set forth below. Patient seen and examined and labs and images reviewed with the residents. Patient main complaint now is chronic pain control and to resume her home medication, will defer this to her primary team. Patient feels her breathing is stable. Please refer to the residents examination. Patient needs follow up as outpatient and I've explained that to her and told her that, she will need PFT and to quit smoking tobacco. She understand that. Will follow up PRN, please call for any questions.
[2016-10-20] MEDS: Budesonide/Formoterol 160/4.5 MDI IH SCH ×2 (07:48→20:34)
[2016-10-20] MEDS: Nicotine 14 MG PATCH.TD24 TD SCH (08:46)
[2016-10-20] MEDS: Famotidine 20 MG TABLET PO SCH (08:46)
[2016-10-20] MEDS: Nystatin SUSP 5 ML UD.LIQ PO SCH ×4 (08:46→20:20)
[2016-10-20] MEDS: Gabapentin 400 MG CAPSULE PO SCH ×4 (08:46→20:20)
[2016-10-20] MEDS ORDERED: Levofloxacin 750 MG/150 ML 750 MG/150 ML BAG IVPB SCH (12:00)
[2016-10-20] MEDS: ALPRAZolam 1 MG TABLET PO PRN ×2 (13:32→20:33)
[2016-10-21] MEDS: *HR* HYDROcodone/Acet 10/325 mg TABLET PO PRN ×5 (00:12→21:00)
[2016-10-21 03:41] LABS: Hemoglobin 10.8 g/dL (11.5-15.4); Mean Corpuscular HGB Conc 31.8 g/dL (31.6-35.5); Mean Corpuscular Hemoglobin 30.9 pg (28.0-33.3); Mean Corpuscular Volume 97.4 fL (83.0-100.0); Mean Platelet Volume 9.3 fL (9.4-12.4); Platelet Count 307 K/mcL (140-400); Red Blood Count 3.49 M/mcL (3.82-4.97); Red Cell Distribution Width 16.6 % (11.5-14.5)
[2016-10-21] MEDS: Ipratropium/Albuterol Neb 3 ML IH SCH ×6 (03:45→23:59)
[2016-10-21 03:53] LABS: BUN/Creatinine Ratio 33 (6-26); Blood Urea Nitrogen 21 mg/dL (7-20); Calcium 9.4 mg/dL (8.6-10.8); Carbon Dioxide 30 mEq/L (19-29); Chloride 103 mEq/L (98-109); Glucose 121 mg/dL (70-99); Osmolality,Calculated 300 (280-300); Potassium 4.2 mEq/L (3.5-4.5); Sodium 143 mEq/L (136-145); eGFR For African Americans > 60 (> 60); eGFR For Non-African Americans > 60 (> 60)
[2016-10-21 04:10] LABS: Lymphocytes # 1.2 K/mcL (0.6-4.6); Monocytes # 0.7 K/mcL (0.0-1.3); Neutrophils # 9.7 K/mcL (1.6-8.9); Platelet Estimate Normal (Normal)
[2016-10-21] MEDS: *HR* Enoxaparin 40 MG/0.4 ML SYRINGE SQ SCH (05:39)
[2016-10-21] MEDS: Nicotine 14 MG PATCH.TD24 TD SCH (08:51)
[2016-10-21] MEDS: Famotidine 20 MG TABLET PO SCH (08:52)
[2016-10-21] MEDS: Gabapentin 400 MG CAPSULE PO SCH ×4 (08:52→20:59)
[2016-10-21] MEDS: Nystatin SUSP 5 ML UD.LIQ PO SCH ×4 (08:52→21:01)
--- NOTE | 2016-10-21 09:04 | Internal Med Progress Note ---
Date of Encounter: 10/21/16 Time of Encounter: 09:15 - Assessment and plan (1) Aspiration pneumonia Current Visit: No Status: Suspected Assessment and plan: Continue ceftriaxone. Given the severity of her infection I will increase dosing to every 12 hours. Blood cultures currently negative. Sputum culture grew Streptococcus pneumoniae sensitive to ceftriaxone and gram-negative coccobacilli. Her chest x-ray from today was personally reviewed shows bilateral infiltrates suggestive of pneumonia and bilateral pleural effusions. Qualifiers: Aspiration pneumonia type: unspecified Laterality: bilateral Lung location: unspecified part of lung Qualified Code(s): J69.0 - Pneumonitis due to inhalation of food and vomit (2) Acute and chronic respiratory failure Current Visit: Yes Status: Acute Assessment and plan: Secondary to pneumonia and pleural effusions. We will treat her with oxygen by nasal cannula. Qualifiers: Respiratory failure complication: hypoxia and hypercapnia Qualified Code(s) : J96.21 - Acute and chronic respiratory failure with hypoxia; J96.22 - Acute and chronic respiratory failure with hypercapnia (3) Cigarette smoker Current Visit: No Status: Acute Assessment and plan: I have emphasized the importance of smoking cessation. She is currently receiving nicotine replacement therapy. (4) DVT prophylaxis Current Visit: Yes Status: Acute Assessment and plan: Continue with Lovenox subcutaneous. (5) Hx of anxiety disorder Current Visit: Yes Status: Acute Assessment and plan: On Xanax per home dose. (6) Brainstem glioma Current Visit: No Status: Chronic Assessment and plan: She complains of chronic pain, mostly headache and neck pain. She states she takes 2 tablets of 10 mg Vanleer at home every 4 hours which improves her pain down to 5/10. I will adjust the dose to reflect that. Continue with dexamethasone according to her chronic dosing. - Subjective Interval history: she reports 9/10 occipital headache going down the back of her neck, she has been having this chronic pain at home and she takes 2 tabs of 10 mg Vanleer. Usually comes down to 5. She states this that one tablet 10 mg of Vanleer is not efficient, bringing it down to 7/10. She denies any associated visual loss or weakness. She does not complain of shortness of breath at this time. - Constitutional Vitals: Temp Pulse Resp BP Pulse Ox 98.3 F 72 18 128/85 98 10/21/16 06:26 10/21/16 06:26 10/21/16 06:26 10/21/16 06:26 10/21/16 06:26 General appearance: Present: A&O X 3 - Eye Eye exam: Present: PERRL, conjuntiva pink, sclera anicteric Pupils: Present: PERRL - Respiratory Respiratory exam: Present: rales, wheezes (Bilateral rales and expiratory wheezes). Absent: accessory muscle use, respiratory distress, rhonchi - Cardiovascular Cardiovascular exam: Present: RRR, +S1, +S2. Absent: diastolic murmur, gallop, rubs, systolic murmur - GI/Abdominal GI/Abdominal exam: Present: normal bowel sounds, soft, no peritoneal signs. Absent: distended, tenderness - Extremities Exam Extremities exam: Present: warm, radial pulses palpable and symetrical. Absent : calf tenderness, cyanotic, pedal edema - Neurological Exam Neurological exam: Present: CN II-XII intact, oriented X3, no focal deficits. Absent: pronater drift, facial droop, speech deficit - Skin Skin exam: Present: dry, intact Internal Medicine: Result - Labs CBC & Chem 7: 10/21/16 03:29 10/21/16 03:29 Labs: Short CBC 10/21/16 Range/Units 03:29 WBC 11.6 H (4.3-11.1) K/mcL Hgb 10.8 L (11.5-15.4) g/dL Hct 34.0 L (35.3-44.9) % Plt Count 307 (140-400) K/mcL Neutrophils # 9.7 H (1.6-8.9) K/mcL BMP 10/21/16 03:29 Sodium 143 Potassium 4.2 Chloride 103 Carbon Dioxide 30 H BUN 21 H Creatinine 0.63 Glucose 121 H Calcium 9.4 - ABG Interpretation ABG results: ABG ABG pH 7.40 pH Units (7.32-7.45) 10/19/16 05:08 ABG pCO2 58 mmHg (35-45) H 10/19/16 05:08 ABG pO2 71 mmHg (85-104) L 10/19/16 05:08 ABG O2 Saturation 94 % (95-98) L 10/19/16 05:08 Consult Discharge Plan - Plan Referrals: NO,PCP [Non-Partnered Physician] -
--- NOTE | 2016-10-21 09:08 | Pulmonology Progress Note ---
Date of Encounter: 10/21/16 Time of Encounter: 09:08 Assessment and Plan (1) Acute on chronic respiratory failure Current Visit: Yes Status: Acute 35 y/o F hx of pontine glioma s/p radiation therapy, cigarette smoking, aspiration pneumonia, dysphagia COPD on 4L home O2 presented with worsening sob and productive cough of one week with chills. Patient had to increase O2 to 5L at home. Patient was tachypneic on arrival and started on BIPAP. Her O2 saturations were well maintained, but her work of breathing worsened. CXR showed new interstitial infiltrates. Patient began tiring out and agreed to intubation. WBC 13 with 24% bands, lactic acid 0.9. ABG: pH 7.34 pCO2 52 pO2 120 on AC mode 2nd to COPD exacerbation/ possible aspiration pneumonia With worsening dyspnea, and productive cough and increase in oxygenation requirement patient likely had COPD exacerbation. 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 In the past she had PEG tube but it was removed in May 2016. Since then patient' s says she has had 7-8 occurrences of pneumonia. d/c vanc Switched from zosyn and levaquin to rocephin today based on final sensitivity report of sputum culture blood cultures, respiratory infectious panel sent and prelim are negative legionella and strep urine antigens positive just for strep pneumo repeat CXR no change Patient was extubated yesterday, no acute overnight events, currently on 2L O2 at 95% SPO2, breathing fine. Pt has been transferred to medical floor this AM in stable condition, sign out has been given to admitting physician, Dr. Salgado today. Qualifiers: Qualified Code(s): J96.21 - Acute and chronic respiratory failure with hypoxia; J96.22 - Acute and chronic respiratory failure with hypercapnia (2) Aspiration pneumonia Current Visit: Yes Status: Acute Sputum culture came back positive for strep pneumo and gram negative coccobacilli, resistance to levaquin for strep pneumo, sensitive to rocephin, will switch to rocephin today, aspiration precaution, con't to trend lab and monitor VS. Qualifiers: Qualified Code(s): J69.0 - Pneumonitis due to inhalation of food and vomit (3) Brain cancer Current Visit: Yes Status: Acute Pontine glioma diagnosed in 2014. Has undergone radiation therapy (last dose in september 2016). Not candidate for surgical therapy. Patient decided not to undergo chemo due to side effects profile. has hx of dysphagia, slurred speech, right sided weakness and seizures (stated 2nd to benzodiazepine withdrawal) on dexamethasone to prevent inflammation 2nd to tumor. restarted home nystatin, f/u with her primary oncologist as outpt. Qualifiers: Qualified Code(s): C71.9 - Malignant neoplasm of brain, unspecified (4) Hx of anxiety disorder Current Visit: Yes Status: Acute hx of anxiety disorder on xanax at home. restart home xanax (5) DVT prophylaxis Current Visit: Yes Status: Acute Lovenox SQ daily. Subjective Principal diagnosis: COPD exacerbation Interval history: Pt seen and examined, no acute events overnight, pt was successfully extubated yesterday, this AM she was satting 95% on 2L of NC, resting comfortably in bed, she will be transferred to medical floor this AM. Objective PUL Vital signs: Last Vital Signs Temp 98.3 F 10/21/16 06:26 Pulse 72 10/21/16 06:26 Resp 18 10/21/16 06:26 BP 128/85 10/21/16 06:26 Pulse Ox 98 10/21/16 06:26 Results - Laboratory Findings CBC and BMP: 10/21/16 03:29 10/21/16 03:29 ABG ABG pH 7.40 pH Units (7.32-7.45) 10/19/16 05:08 ABG pCO2 58 mmHg (35-45) H 10/19/16 05:08 ABG pO2 71 mmHg (85-104) L 10/19/16 05:08 ABG O2 Saturation 94 % (95-98) L 10/19/16 05:08 Abnormal lab findings: Abnormal lab results WBC 11.6 K/mcL (4.3-11.1) H 10/21/16 03:29 RBC 3.49 M/mcL (3.82-4.97) L 10/21/16 03:29 Hgb 10.8 g/dL (11.5-15.4) L 10/21/16 03:29 Hct 34.0 % (35.3-44.9) L 10/21/16 03:29 RDW 16.6 % (11.5-14.5) H 10/21/16 03:29 MPV 9.3 fL (9.4-12.4) L 10/21/16 03:29 Neutrophils # 9.7 K/mcL (1.6-8.9) H 10/21/16 03:29 Toxic Granulation Present (Not Present) A 10/19/16 02:54 Dohle Bodies Present (Not Present) A 10/19/16 02:54 ABG pCO2 58 mmHg (35-45) H 10/19/16 05:08 ABG pO2 71 mmHg (85-104) L 10/19/16 05:08 ABG HCO3 35.9 mEQ/L (21-27) H 10/19/16 05:08 ABG Total CO2 37.7 mEq/L (20-26) H 10/19/16 05:08 ABG O2 Saturation 94 % (95-98) L 10/19/16 05:08 ABG Base Excess 9.5 mEq/L (-2.0 to 3.0) H 10/19/16 05:08 Carbon Dioxide 30 mEq/L (19-29) H 10/21/16 03:29 BUN 21 mg/dL (7-20) H 10/21/16 03:29 BUN/Creatinine Ratio 33 (6-26) H 10/21/16 03:29 Glucose 121 mg/dL (70-99) H 10/21/16 03:29 POC Glucose 109 (58-89) H 10/18/16 11:56 Phosphorus 5.2 mg/dL (2.3-4.7) H 10/19/16 02:54 - Microbiology Findings Microbiology Findings: Microbiology, Last 48 Hours 10/18/16 15:40 Sputum Culture - Preliminary Sputum Streptococcus pneumoniae Gram Negative Coccobacilli 10/18/16 15:35 Legionella Antigen - Final Urine,Catheterized Streptococcus pneumoniae Antigen (M - Final - Clinical Findings Intake & Output: Intake & Output 10/20/16 10/21/16 10/21/16 23:59 07:59 15:59 Intake Total 240 / 240 60 / 60 Output Total 200 / 200 600 / 600 Balance 40 / 40 -540 / -540 Consult Discharge Plan - Plan Referrals: NO,PCP [Non-Partnered Physician] -
--- NOTE | 2016-10-21 10:44 | Pulmonology Progress Note ---
Date of Encounter: 10/21/16 Time of Encounter: 08:45 Assessment and Plan (1) COPD with acute exacerbation Current Visit: Yes Status: Suspected Patient is gradually recovering and feeling better. Continue current treatment with bronchodilators and patient takes Decadron at home. Continue oxygen and one more time and advised patient to quit smoking tobacco and need to follow-up as outpatient. (2) Streptococcus pneumoniae pneumonia Current Visit: Yes Status: Acute Continue current antibiotic at least for 7-8 days. Qualifiers: Laterality: unspecified laterality Lung location: unspecified part of lung Qualified Code(s): J13 - Pneumonia due to Streptococcus pneumoniae Subjective Principal diagnosis: COPD exacerbation Interval history: Patient is breathing better today and denies any chest pain or tightness. Objective PUL Vital signs: Last Vital Signs Temp 98.0 F 10/21/16 10:38 Pulse 77 10/21/16 10:38 Resp 18 10/21/16 10:38 BP 122/86 10/21/16 10:38 Pulse Ox 97 10/21/16 10:38 General appearance: no acute distress Eyes: nonicteric ENT: oropharynx moist Neck: supple, no lymphadenopathy Effort: mildly labored Auscultation: bilateral: rhonchi Percussion: bilateral: not dull Cardiovascular: regular rate and rhythm Gastrointestinal: normoactive bowel sounds, soft, non-distended Extremities: no cyanosis, no edema normal mental status, non-focal exam mood appropriate Results - Laboratory Findings CBC and BMP: 10/21/16 03:29 10/21/16 03:29 ABG ABG pH 7.40 pH Units (7.32-7.45) 10/19/16 05:08 ABG pCO2 58 mmHg (35-45) H 10/19/16 05:08 ABG pO2 71 mmHg (85-104) L 10/19/16 05:08 ABG O2 Saturation 94 % (95-98) L 10/19/16 05:08 Abnormal lab findings: Abnormal lab results WBC 11.6 K/mcL (4.3-11.1) H 10/21/16 03:29 RBC 3.49 M/mcL (3.82-4.97) L 10/21/16 03:29 Hgb 10.8 g/dL (11.5-15.4) L 10/21/16 03:29 Hct 34.0 % (35.3-44.9) L 10/21/16 03:29 RDW 16.6 % (11.5-14.5) H 10/21/16 03:29 MPV 9.3 fL (9.4-12.4) L 10/21/16 03:29 Neutrophils # 9.7 K/mcL (1.6-8.9) H 10/21/16 03:29 Toxic Granulation Present (Not Present) A 10/19/16 02:54 Dohle Bodies Present (Not Present) A 10/19/16 02:54 ABG pCO2 58 mmHg (35-45) H 10/19/16 05:08 ABG pO2 71 mmHg (85-104) L 10/19/16 05:08 ABG HCO3 35.9 mEQ/L (21-27) H 10/19/16 05:08 ABG Total CO2 37.7 mEq/L (20-26) H 10/19/16 05:08 ABG O2 Saturation 94 % (95-98) L 10/19/16 05:08 ABG Base Excess 9.5 mEq/L (-2.0 to 3.0) H 10/19/16 05:08 Carbon Dioxide 30 mEq/L (19-29) H 10/21/16 03:29 BUN 21 mg/dL (7-20) H 10/21/16 03:29 BUN/Creatinine Ratio 33 (6-26) H 10/21/16 03:29 Glucose 121 mg/dL (70-99) H 10/21/16 03:29 POC Glucose 109 (58-89) H 10/18/16 11:56 Phosphorus 5.2 mg/dL (2.3-4.7) H 10/19/16 02:54 - Microbiology Findings Microbiology Findings: Microbiology, Last 48 Hours 10/18/16 15:40 Sputum Culture - Final Sputum Streptococcus pneumoniae Haemophilus influenzae V 10/18/16 15:35 Legionella Antigen - Final Urine,Catheterized Streptococcus pneumoniae Antigen (M - Final - Clinical Findings Intake & Output: Intake & Output 10/20/16 10/21/16 10/21/16 23:59 07:59 15:59 Intake Total 240 / 240 60 / 60 240 / 240 Output Total 200 / 200 600 / 600 650 / 650 Balance 40 / 40 -540 / -540 -410 / -410 Consult Discharge Plan - Plan Referrals: NO,PCP [Non-Partnered Physician] -
[2016-10-21] MEDS: Budesonide/Formoterol 160/4.5 MDI IH SCH ×2 (11:14→20:46)
[2016-10-21] MEDS: ALPRAZolam 1 MG TABLET PO PRN ×2 (12:33→21:00)
[2016-10-22] MEDS: *HR* HYDROcodone/Acet 10/325 mg TABLET PO PRN ×3 (03:03→12:50)
[2016-10-22] MEDS: Ipratropium/Albuterol Neb 3 ML IH SCH ×3 (03:44→11:35)
[2016-10-22 04:05] LABS: Hematocrit 37.1 % (35.3-44.9); Hemoglobin 11.5 g/dL (11.5-15.4); Mean Corpuscular Hemoglobin 29.9 pg (28.0-33.3); Mean Corpuscular Volume 96.4 fL (83.0-100.0); Platelet Count 349 K/mcL (140-400); Red Blood Count 3.85 M/mcL (3.82-4.97); Red Cell Distribution Width 16.4 % (11.5-14.5)
[2016-10-22] MEDS: *HR* Enoxaparin 40 MG/0.4 ML SYRINGE SQ SCH (05:17)
[2016-10-22 05:22] LABS: Lymphocytes # 1.6 K/mcL (0.6-4.6); Monocytes # 1.4 K/mcL (0.0-1.3); Neutrophils # 10.5 K/mcL (1.6-8.9); Platelet Estimate Normal (Normal)
[2016-10-22 06:00] LABS: BUN/Creatinine Ratio 30 (6-26); Blood Urea Nitrogen 19 mg/dL (7-20); Calcium 9.6 mg/dL (8.6-10.8); Carbon Dioxide 26 mEq/L (19-29); Chloride 101 mEq/L (98-109); Glucose 101 mg/dL (70-99); Osmolality,Calculated 290 (280-300); Potassium 4.4 mEq/L (3.5-4.5); Sodium 139 mEq/L (136-145); eGFR For African Americans > 60 (> 60); eGFR For Non-African Americans > 60 (> 60)
[2016-10-22] MEDS: Budesonide/Formoterol 160/4.5 MDI IH SCH (08:10)
[2016-10-22] MEDS: Nicotine 14 MG PATCH.TD24 TD SCH (08:48)
[2016-10-22] MEDS: Famotidine 20 MG TABLET PO SCH (08:48)
[2016-10-22] MEDS: Nystatin SUSP 5 ML UD.LIQ PO SCH ×2 (08:49→12:51)
[2016-10-22] MEDS: Gabapentin 400 MG CAPSULE PO SCH ×2 (08:49→12:50)
[2016-10-22] MEDS: ALPRAZolam 1 MG TABLET PO PRN (12:23)
--- NOTE | 2016-10-22 17:46 | Discharge Summary ---
Date of Encounter: 10/22/16 Time of Encounter: 10:00 - Discharge Diagnosis (1) Aspiration pneumonia Priority: Primary Status: Suspected Qualifiers: Aspiration pneumonia type: unspecified Laterality: bilateral Lung location: unspecified part of lung Qualified Code(s): J69.0 - Pneumonitis due to inhalation of food and vomit (2) Acute and chronic respiratory failure Priority: Secondary Status: Acute Qualifiers: Respiratory failure complication: hypoxia and hypercapnia Qualified Code(s) : J96.21 - Acute and chronic respiratory failure with hypoxia; J96.22 - Acute and chronic respiratory failure with hypercapnia (3) Cigarette smoker Priority: Secondary Status: Acute (4) DVT prophylaxis Priority: Secondary Status: Acute (5) Hx of anxiety disorder Priority: Secondary Status: Acute (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 - Discharge Medications Home Medications: Albuterol Sulfate [Albuterol Inhaler] 2 puff IH Q4HR PRN #1 unit 11/15/15 [Rx] Docusate Sodium [Dok] 250 mg PO DAILY #30 capsule 03/09/16 [Rx] Biotin/Calcium Carbonate [Biotin 800 Mcg Tablet] 1 each PO DAILY #30 tablet 10/28 [Rx] Folic Acid 1 mg PO DAILY 06/17/16 [History] Simethicone [Gas-X] 80 mg PO DAILY #30 tab.chew 08/16/16 [Rx] Ondansetron [Zofran ODT] 8 mg SL Q4HR #120 tab.rapdis 08/28/16 [Rx] Ascorbic Acid [Vitamin C] 1 tab PO DAILY #30 tablet 09/11/16 [Rx] Bisacodyl [Dulcolax] 5 - 10 mg PO DAILY PRN #60 tablet 09/11/16 [Rx] Ferrous Sulfate [Iron] 325 mg PO DAILY #30 capsule.er 09/11/16 [Rx] Nystatin [Nystatin Suspension] 5 ml PO QID #120 ml 09/17/16 [Rx] Guaifenesin 200 mg PO Q4H PRN #180 tablet 09/27/16 [Rx] Gabapentin [Neurontin] 800 mg PO QID #120 tablet 10/05/16 [Rx] HYDROcodone/Acet 10/325 mg [Kingsland 10-325 mg] 1 - 2 tab PO Q4HR PRN #240 tab [Rx] Alprazolam [Xanax 1 MG Tablet] 1 - 2 mg PO TID PRN #126 tablet 10/15/16 [Rx] Dexamethasone [Decadron] 4 mg PO BID #60 tablet 10/15/16 [Rx] Famotidine [Pepcid] 20 mg PO DAILY #30 tablet 10/15/16 [Rx] Allergies/Adverse Reactions: Allergies ethinyl estradiol [From Ortho Tri-Cyclen (28)] Allergy (Verified 03/27/16 17:05) Hives norgestimate [From Ortho Tri-Cyclen (28)] Allergy (Verified 03/27/16 17:05) Hives Date of admission: 10/18/16 11:11 Primary care physician: Cole Chapman Jr, MD - Patient Status Disposition: Left Against Medical Advice Condition: Fair Overall status at discharge: patient is not back to baseline - Discharge Instructions Follow Up With: Cole Chapman Jr, MD [Primary Care Provider] - Hospital course: Ms. Perez is a 35 year old female with past medical history of pontine glioma s/p radiation therapy, cigarette smoking, aspiration pneumonia, dysphagia COPD on 4L home O2 presented with worsening sob and productive cough of one week with chills. Patient had to increase O2 to 5L at home. Patient was tachypneic on arrival and started on BIPAP. Her O2 saturations were well maintained, but her work of breathing worsened. CXR showed new interstitial infiltrates. Patient began tiring out and agreed to intubation. WBC 13 with 24% bands, lactic acid 0.9. She was admitted to the ICU. Treated with IV antibiotics for aspiration pneumonia, maintained on mechanical ventilation. She was extubated 3 days ago and was transferred to the floor. We continued treatment with IV antibiotics. She improved. Her sputum culture sensitive to ceftriaxone and resistant to Levaquin as well as Haemophilus influenza. We continue treatment with ceftriaxone as per pulmonary recommendations she needs to complete 7 days of antibiotics. The patient decided that she would like to go home AGAINST MEDICAL ADVICE and left the hospital. We advised her of the risks of worsening pneumonia, sepsis, and respiratory failure. At time of my visit she was awake alert oriented 3 and appeared to full capacity of making her own healthcare decisions. - Time Spent with Patient Total time spent providing and/or coordinating discharge services: - Constitutional Vitals: Temp Pulse Resp BP Pulse Ox 97.8 F 81 14 103/68 96 10/22/16 11:04 10/22/16 11:04 10/22/16 11:04 10/22/16 11:04 10/22/16 11:04 General appearance: Present: A&O X 3 - Respiratory Respiratory exam: Present: CTAB, rales, wheezes. Absent: accessory muscle use, rhonchi - Cardiovascular Cardiovascular exam: Present: RRR, +S1, +S2. Absent: diastolic murmur, gallop, rubs, systolic murmur - GI/Abdominal GI/Abdominal exam: Present: normal bowel sounds, soft, no peritoneal signs. Absent: distended, tenderness
[2016-10-23 10:37] VITALS: BP 103/68
== END 2016-10-22 14:41 | disposition left against medical advice (07) | DRG 951 ==
LOC: EMEROO 09:08 → ICNU 11:11 → 3ANU 10-20 08:10
PROVIDERS: ADMIT Internal Medicine Pulmonary Disease; ATTEND Internal Medicine

== ENCOUNTER 2016-12-13 14:36 | Inpatient (IN) ==
[~2016-12-13 14:36] MED LIST changes: -*HR* Etomidate 20 MG/10 ML AMPUL IVP ONE; +*HR* Midazolam HCl 5 MG/5 ML VIAL IVP ONE; +*HR* Rocuronium Bromide 100 MG/10 ML VIAL IVC ONE; -*HR* Succinylcholine 200 MG/10 ML VIAL IVP ONE
[2016-12-13] MEDS ORDERED: Piperacillin/Tazobactam 4.5 GM in D5% in Water (Mini-Bag+) 100 ML IVPB ONE (14:45)
[2016-12-13] MEDS ORDERED: Ipratropium/Albuterol Neb 3 ML IH ONE (14:45)
[2016-12-13] MEDS ORDERED: Vancomycin 1,000 MG VIAL IVPB ONE (14:45)
[2016-12-13] MEDS: 0.9 % Sodium Chloride 1,000 ML IVC ONE ×2 (15:08→15:59)
[2016-12-13] MEDS ORDERED: Propofol 500 MG/50 ML INFUS..BTL ONE (15:17)
[2016-12-13] MEDS ORDERED: *HR* Midazolam HCl 5 MG/5 ML VIAL IVP ONE (15:18)
[2016-12-13] MEDS ORDERED: *HR* Propofol 500 MG/50 ML BOTTLE IVP ONE (15:19)
[2016-12-13] MEDS ORDERED: *HR* Rocuronium Bromide 50 MG/5 ML VIAL IVP ONE (15:19)
[2016-12-13] MEDS ORDERED: *HR* HYDROmorphone (PF) 1 MG/ML SYRINGE IVP ONE (15:19)
[2016-12-13] MEDS ORDERED: Ondansetron 4 MG/2 ML VIAL IVP ONE (15:19)
[2016-12-13 15:22] LABS: Bilirubin,Urine Moderate (Negative); Blood,Urine Large (Negative); Clarity,Urine Turbid (Clear); Color,Urine Orange (Yellow); Glucose,Urine (UA) Normal (Normal); Ketones,Urine 15 mg/dL (Negative); Leukocyte Esterase,Urine Large (Negative); Nitrite,Urine Negative (Negative); PH,Urine 5.5 pH Units (5.0-8.0); Protein,Urine 100 mg/dL (Neg-Trace); Specific Gravity,Urine 1.025 (1.010-1.025); Urobilinogen,Urine Normal (Normal)
[2016-12-13 15:26] LABS: RBC,Urine 50-100 per hpf (0-3); Squamous Epithelial Cell,Urine Few per lpf (None-Few); WBC,Urine 30-50 per hpf (0-3)
[2016-12-13 15:27] LABS: Bacteria,Urine Many per hpf (None-Few)
[2016-12-13] MEDS ORDERED: 0.9 % Sodium Chloride 1,000 ML ONE (15:44)
[2016-12-13] MEDS ORDERED: Amiodarone 300 MG in D5% in Water 100 ML IVPB ONE (15:52)
[2016-12-13] MEDS ORDERED: *HR* EPINEPHrine 1 MG/10 ML SYRINGE IVP ONE ×3 (15:52→15:55)
[2016-12-13 15:57] LABS: Basophils # 0.1 K/mcL (0.0-0.2); Basophils % 0.7 %; Eosinophils # 0.1 K/mcL (0.0-0.6); Eosinophils % 0.4 %; Hemoglobin 15.8 g/dL (11.5-15.4); Immature Granulocytes % 5.3 % (0-4); Immature Platelets 3.9 % (1.1-6.1); Lymphocytes % 37.3 %; Mean Corpuscular Hemoglobin 31.7 pg (28.0-33.3); Mean Corpuscular Volume 102.2 fL (83.0-100.0); Mean Platelet Volume 10.6 fL (9.4-12.4); Monocytes # 0.9 K/mcL (0.0-1.3); Monocytes % 4.9 %; Neutrophils # 9.6 K/mcL (1.6-8.9); Nucleated Red Blood Cells 1.4 /100 WBC (0); Platelet Count 365 K/mcL (140-400); Red Blood Count 4.99 M/mcL (3.82-4.97); Segmented Neutrophils % 51.4 %
[2016-12-13] MEDS ORDERED: Clindamycin 900 MG/50 ML 900 MG/50 ML IV.SOLN IVPB ONE (15:57)
[2016-12-13] MEDS ORDERED: 0.9 % Sodium Chloride 1,000 ML IVC ONE (16:03)
[2016-12-13 16:20] LABS: Reactive Lymphocytes Present (Not Present)
[2016-12-13 16:21] LABS: Polychromasia 1+ (Not Present)
--- NOTE | 2016-12-13 16:31 | Emergency Department Note ---
Disposition Clinical Impression: Respiratory failure requiring intubation, DVT prophylaxis, Glioblastoma multiforme of brain, Altered level of consciousness Acute renal failure Qualifiers: Acute renal failure type: unspecified Qualified Code(s): N17.9 - Acute kidney failure, unspecified Hypotension Qualifiers: Hypotension type: unspecified hypotension type Qualified Code(s): I95.9 - Hypotension, unspecified Disposition: Admitted As Inpatient Condition: Critical Referrals: NO,PCP [Primary Care Provider] - Forms: ED Satisfaction Letter SOB HPI - General Chief Complaint: ED Shortness of Breath/Dyspnea Stated Complaint: SOB/Lethargic Time Seen by Provider: 12/13/16 14:45 Source: family, EMS Limitations: altered mental status Nursing Notes Reviewed: Yes Vital Signs Reviewed: Yes - History of Present Illness Patient does have a history of a brainstem glioblastoma and I did see the patient back in October when she had presented with respiratory failure and did intubate the patient and today she presents per EMS. I did see the patient immediately upon arrival and also spoke with the paramedics. They state her oxygen saturation was 98% and her blood pressure was adequate and the patient is able to give some history via nodding yes and no but is not able to verbalize more than mouthing words. This is questionable reliability. I did speak w the pts grandmother who who arrived just a few minutes later who tells me that the patient is living at home with the patient's mother and with her children and the patient's 14-year-old daughter found that the patient was no longer responsive and so tried to get the mother to call 911 but when this did not occur the patient's daughter called the grandmother who whet to the home and then called the paramedics. States the patient has had difficulty with breathing for the last several days and there have been upper respiratory symptoms passing around the home. I am not able to get an adequate history secondary to her medical condition of acute respiratory distress and altered conscious. Old records have been reviewed. - Related Data Home Medications Medication Instructions Recorded Confirmed Folic Acid 1 mg PO DAILY 06/17/16 12/13/16 Ascorbic Acid [Vitamin C] 500 mg PO DAILY 12/13/16 12/13/16 Ondansetron ODT [Zofran ODT] 4 mg PO Q6H PRN 12/13/16 12/13/16 Previous Rx's Medication Instructions Recorded Albuterol Sulfate [Albuterol 2 puff IH Q4HR PRN #1 unit 11/15/15 Inhaler] Docusate Sodium [Dok] 250 mg PO DAILY #30 capsule 03/09/16 Simethicone [Gas-X] 80 mg PO DAILY #30 tab.chew 08/16/16 Nystatin [Nystatin Suspension] 5 ml PO QID #120 ml 09/17/16 Calcium Carbonate/Vitamin D3 1 each PO DAILY #30 tablet 10/25/16 [Calcium 500-Vit D3 200 Tablet] Sulfamethoxazole/Trimeth DS 1 each PO DAILY #30 tablet 10/25/16 [Bactrim DS] Beclomethasone Diprop 80mcg [Qvar 1 puff IH BID #1 aer.w.adap 11/13/16 80 mcg] Bisacodyl [Dulcolax] 5 - 10 mg PO DAILY PRN #60 tablet 11/13/16 Dexamethasone [Decadron] 4 mg PO BID #60 tablet 11/13/16 Famotidine [Pepcid] 20 mg PO DAILY #30 tablet 11/13/16 ALPRAZolam [Xanax 1 MG Tablet] 1 - 2 mg PO TID PRN #126 tablet 11/23/16 HYDROcodone/Acet 10/325 mg [[place] 1 - 2 tab PO Q4HR PRN #240 tab 11/30/16 10-325 mg] Citalopram [CeleXA] 20 mg PO DAILY #30 tablet 12/04/16 Gabapentin [Neurontin] 800 mg PO QID #120 tablet 12/04/16 Allergies Allergy/AdvReac Type Severity Reaction Status Date / Time ethinyl estradiol Allergy Hives Verified 11/01/16 23:20 [From Ortho Tri-Cyclen (28)] norgestimate Allergy Hives Verified 11/01/16 23:20 [From Ortho Tri-Cyclen (28)] Review of Systems: Patient denies any pain. This is by nodding her head no. 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 She is able to nod yes or no which is sometimes consistence and reliable at other times is done incorrectly, for example 1 I ask her if she is here with her grandfather she nodded yes however it is her grandmother who is here with her today HEAD: Normocephalic; atraumatic. EYES: PERRL, no scleral icterus. NOSE: The nose is normal in appearance without rhinorrhea RESP: Normal chest excursion with bilateral coarse crackles which are symmetric CARD: Regular rhythm, without murmurs, rub or gallop ABD: Non-distended; non-tender, soft,without rigidity, rebound or guarding SKIN: cool and clammy and purplish in color on initial presentation. Mottled skin - General Limitations: altered mental status General appearance: lethargic Course Vital Signs Temperature 98.3 F 12/13/16 14:40 Pulse Rate 164 12/13/16 14:40 Respiratory Rate 14 12/13/16 14:40 Blood Pressure 135/104 12/13/16 14:40 O2 Sat by Pulse Oximetry 90 12/13/16 14:40 Temperature 98.3 F 12/13/16 14:40 Pulse Rate 119 12/13/16 17:11 Respiratory Rate 16 12/13/16 17:11 Blood Pressure 101/76 12/13/16 17:11 O2 Sat by Pulse Oximetry 96 12/13/16 17:11 Oxygen Delivery Oxygen Delivery Ventilator Shortness of Breath/Dyspnea - [facility] Narrative Medical decision making narrative: Upon arrival staff was room however it was difficult to place a IV line. A line was obtained on the right upper extremity which then blew and so a another line was placed in the left AC. From the time the patient arrived we did call respiratory therapy and prepared for endotracheal intubation and the patient did receive rocuronium 100 mg and Versed 5 mg IV and then I did intubate the patient with a 7.5 endotracheal tube using the gllidescope on the first attempt - was done easily without difficulty. Good color change in the CO2 detector and good air exchange bilaterally with auscultation in both lungs and no air auscultated over the stomach. The endotracheal tube was placed at 22 cm. The patient did go into cardiac arrest about 10 minutes later which was preceded by bradycardia. When she became bradycardiac orders were given for atropine and epinephrine and she did receive 0.5mg epi, however her bradycardia significantly increased just after and I was not able to palpate a femoral or carotid pulse so the code was started. The patient did have a total of 2.5 mg of IV epinephrine and on a pulse check was found to be in ventricular tachycardia so was initially shocked with 200 J and then she was still in ventricular tachycardia so she was shocked at 360 J and the patient did go back into a sinus tachycardia which did result in good peripheral pulses which were able to be palpated. Her initial EKG did show a narrow complex tachycardia with a rate of 172 bpm and this is thought to be from patient's underlying process as well as likely hypoxemia and then a repeat EKG after the patient was intubated at the completion of the code did show sinus tachycardia with a rate of 111 bpm which does have a wide complex. The patient had been given amiodarone 300 mg during the code but has remained in sinus rhythm since that time. She is currently in the CT scanner getting a contrast CTA to look for pulmonary embolism and I did update the patient's father and her grandmother as the critical nature of the patient's illness. Orders have been given for Zosyn and vancomycin and clindamycin as the patient' s mother said the patient does have a history of aspiration pneumonitis in the past. She is full code. Critical care time: 90 minutes Patient did have a right femoral central line placed by the nurses medicine boiler house mechanic [id number] The endotracheal tube has been pulled back from 22 cm to 21 cm. The patient does have a oxygen saturation 98% currently. She did have some fighting of the tube and so did receive propofol 60 mg bolus and then 20 mcg/kg/m. The patient' s blood pressure is now over 100. She will be admitted and I did speak with the hospitalist nurse practitioner who is down in the emergency department and who does accept the patient for admission to the intensive care unit. Patient is in a critical condition and I discussed the family on multiple occasions 1720 I did review the patient's additional lab results which have just returned showing that she has an acute renal failure which is new compared to the past. The creatinine level is 3.05. Patient had received a emergent CT scan with IV contrast with the concern that this episode of cyanosis and tachypnea and hypoxemia was from a saddle pulmonary embolus which could possibly require thrombolytics so that is why the CT was done before the labs return. The CT does not show evidence of pulmonary embolus. I also did just get a call which informed me that the patient's troponin level is significantly elevated I will discuss this further with the hospitalist to have cardiology consulted. 1753 Finally, the ABG does reveal a metabolic as well as respiratory acidosis and the ventilatory rate is increased from 14 up to a rate of 16 and the IV fluids as well as the fact that her pressure has normalized she also helped to resolve this metabolic acidosis 1729 - Medical Records Medical records reviewed: Yes I reviewed the patient's medical records. - Lab Data Lab results reviewed: Yes I reviewed the patient's lab results. Result diagrams: 12/13/16 15:41 12/13/16 16:45 Lab Results 12/13/16 12/13/16 12/13/16 Range/Units 14:51 15:06 15:41 WBC 18.7 H (4.3-11.1) K/mcL RBC 4.99 H (3.82-4.97) M/mcL Hgb 15.8 H (11.5-15.4) g/dL Hct 51.0 H (35.3-44.9) % MCV 102.2 H (83.0-100.0) fL MCH 31.7 (28.0-33.3) pg MCHC 31.0 L (31.6-35.5) g/dL RDW 16.0 H (11.5-14.5) % Plt Count 365 (140-400) K/mcL MPV 10.6 (9.4-12.4) fL Immature Gran % 5.3 H (0-4) % Seg Neutrophils % 51.4 % Lymphocytes % 37.3 % Monocytes % 4.9 % Eosinophils % 0.4 % Basophils % 0.7 % Neutrophils # 9.6 H (1.6-8.9) K/mcL Lymphocytes # 7.0 H (0.6-4.6) K/mcL Monocytes # 0.9 (0.0-1.3) K/mcL Eosinophils # 0.1 (0.0-0.6) K/mcL Basophils # 0.1 (0.0-0.2) K/mcL Nucleated RBCs/100 WBC 1.4 H (0) /100 WBC Reactive Lymphocytes Present A (Not Present) Immature Plt Fraction 3.9 (1.1-6.1) % Polychromasia 1+ A (Not Present) ABG pH (7.32-7.45) pH Units ABG pCO2 (35-45) mmHg ABG pO2 (85-104) mmHg ABG HCO3 (21-27) mEQ/L ABG Total CO2 (20-26) mEq/L ABG O2 Saturation (95-98) % ABG Base Excess (-2.0 to 3.0) mEq/L Respiration Rate Blood Gas Modality Inspired O2 % Tidal Volume cc PEEP cm H2O Sodium (136-145) mEq/L Potassium (3.5-4.5) mEq/L Chloride (98-109) mEq/L Carbon Dioxide (19-29) mEq/L BUN (7-20) mg/dL Creatinine (0.57-1.11) mg/dL Est GFR ( Amer) (> 60) Est GFR (Non-Af Amer) (> 60) BUN/Creatinine Ratio (6-26) Glucose (70-99) mg/dL POC Glucose 105 H (58-89) Calculated Osmolality (280-300) Lactic Acid (0.5-2.2) mmol/L Calcium (8.6-10.8) mg/dL Ur Specimen Adequacy Urine Color Schleicher A (Yellow) Urine Clarity Turbid A (Clear) Urine pH 5.5 (5.0-8.0) pH Units Ur Specific Calvin 1.025 (1.010-1.025) Urine Protein 100 H (Neg-Trace) mg/dL Urine Glucose (UA) Normal (Normal) mg/dL Urine Ketones 15 H (Negative) mg/dL Urine Blood Large H (Negative) Urine Nitrite Negative (Negative) Urine Bilirubin Moderate H (Negative) Urine Urobilinogen Normal (Normal) mg/dL Ur Leukocyte Esterase Large H (Negative) Urine Microscopic RBC 50-100 H (0-3) per hpf Urine Microscopic WBC 30-50 H (0-3) per hpf Ur Squamous Epith Cells Few (None-Few) per lpf Urine Bacteria Many H (None-Few) per hpf Ur Culture Indicated? YES A (NO) Specimen Rejected 12/13/16 12/13/16 12/13/16 Range/Units 16:00 16:45 16:45 WBC (4.3-11.1) K/mcL RBC (3.82-4.97) M/mcL Hgb (11.5-15.4) g/dL Hct (35.3-44.9) % MCV (83.0-100.0) fL MCH (28.0-33.3) pg MCHC (31.6-35.5) g/dL RDW (11.5-14.5) % Plt Count (140-400) K/mcL MPV (9.4-12.4) fL Immature Gran % (0-4) % Seg Neutrophils % % Lymphocytes % % Monocytes % % Eosinophils % % Basophils % % Neutrophils # (1.6-8.9) K/mcL Lymphocytes # (0.6-4.6) K/mcL Monocytes # (0.0-1.3) K/mcL Eosinophils # (0.0-0.6) K/mcL Basophils # (0.0-0.2) K/mcL Nucleated RBCs/100 WBC (0) /100 WBC Reactive Lymphocytes (Not Present) Immature Plt Fraction (1.1-6.1) % Polychromasia (Not Present) ABG pH (7.32-7.45) pH Units ABG pCO2 (35-45) mmHg ABG pO2 (85-104) mmHg ABG HCO3 (21-27) mEQ/L ABG Total CO2 (20-26) mEq/L ABG O2 Saturation (95-98) % ABG Base Excess (-2.0 to 3.0) mEq/L Respiration Rate Blood Gas Modality Inspired O2 % Tidal Volume cc PEEP cm H2O Sodium 142 (136-145) mEq/L Potassium 3.3 L (3.5-4.5) mEq/L Chloride 117 H (98-109) mEq/L Carbon Dioxide 14 L (19-29) mEq/L BUN 29 H (7-20) mg/dL Creatinine 3.05 H (0.57-1.11) mg/dL Est GFR ( Amer) 21 L (> 60) Est GFR (Non-Af Amer) 17 L (> 60) BUN/Creatinine Ratio 10 (6-26) Glucose 123 H (70-99) mg/dL POC Glucose (58-89) Calculated Osmolality 301 H (280-300) Lactic Acid 1.9 (0.5-2.2) mmol/L Calcium 7.6 L (8.6-10.8) mg/dL Ur Specimen Adequacy Urine Color (Yellow) Urine Clarity (Clear) Urine pH (5.0-8.0) pH Units Ur Specific Calvin (1.010-1.025) Urine Protein (Neg-Trace) mg/dL Urine Glucose (UA) (Normal) mg/dL Urine Ketones (Negative) mg/dL Urine Blood (Negative) Urine Nitrite (Negative) Urine Bilirubin (Negative) Urine Urobilinogen (Normal) mg/dL Ur Leukocyte Esterase (Negative) Urine Microscopic RBC (0-3) per hpf Urine Microscopic WBC (0-3) per hpf Ur Squamous Epith Cells (None-Few) per lpf Urine Bacteria (None-Few) per hpf Ur Culture Indicated? (NO) Specimen Rejected Hemolyzed 12/13/16 Range/Units 16:55 WBC (4.3-11.1) K/mcL RBC (3.82-4.97) M/mcL Hgb (11.5-15.4) g/dL Hct (35.3-44.9) % MCV (83.0-100.0) fL MCH (28.0-33.3) pg MCHC (31.6-35.5) g/dL RDW (11.5-14.5) % Plt Count (140-400) K/mcL MPV (9.4-12.4) fL Immature Gran % (0-4) % Seg Neutrophils % % Lymphocytes % % Monocytes % % Eosinophils % % Basophils % % Neutrophils # (1.6-8.9) K/mcL Lymphocytes # (0.6-4.6) K/mcL Monocytes # (0.0-1.3) K/mcL Eosinophils # (0.0-0.6) K/mcL Basophils # (0.0-0.2) K/mcL Nucleated RBCs/100 WBC (0) /100 WBC Reactive Lymphocytes (Not Present) Immature Plt Fraction (1.1-6.1) % Polychromasia (Not Present) ABG pH 7.17 L* (7.32-7.45) pH Units ABG pCO2 45 (35-45) mmHg ABG pO2 208 H (85-104) mmHg ABG HCO3 16.4 L (21-27) mEQ/L ABG Total CO2 17.8 L (20-26) mEq/L ABG O2 Saturation 100 H (95-98) % ABG Base Excess -12.0 L (-2.0 to 3.0) mEq/L Respiration Rate 14 Blood Gas Modality VC Inspired O2 100 % Tidal Volume 500 cc PEEP 5 cm H2O Sodium (136-145) mEq/L Potassium (3.5-4.5) mEq/L Chloride (98-109) mEq/L Carbon Dioxide (19-29) mEq/L BUN (7-20) mg/dL Creatinine (0.57-1.11) mg/dL Est GFR ( Amer) (> 60) Est GFR (Non-Af Amer) (> 60) BUN/Creatinine Ratio (6-26) Glucose (70-99) mg/dL POC Glucose (58-89) Calculated Osmolality (280-300) Lactic Acid (0.5-2.2) mmol/L Calcium (8.6-10.8) mg/dL Ur Specimen Adequacy Urine Color (Yellow) Urine Clarity (Clear) Urine pH (5.0-8.0) pH Units Ur Specific Calvin (1.010-1.025) Urine Protein (Neg-Trace) mg/dL Urine Glucose (UA) (Normal) mg/dL Urine Ketones (Negative) mg/dL Urine Blood (Negative) Urine Nitrite (Negative) Urine Bilirubin (Negative) Urine Urobilinogen (Normal) mg/dL Ur Leukocyte Esterase (Negative) Urine Microscopic RBC (0-3) per hpf Urine Microscopic WBC (0-3) per hpf Ur Squamous Epith Cells (None-Few) per lpf Urine Bacteria (None-Few) per hpf Ur Culture Indicated? (NO) Specimen Rejected - Radiology Data Radiology results reviewed: Yes I reviewed the patient's radiology results. Chest X-Ray 12/13/16 14:49 IMPRESSION: Endotracheal tube slightly low in position. Recommend retracting 2 cm. Pulmonary venous congestion. There is slight bilateral perihilar infiltrate also suggested, which may be due to mild edema or pneumonia or atelectasis. D/ / Roque Hernandez MD / Roque Hernandez MD Interpreting Provider: Roque Hernandez MD Chest CTA 12/13/16 15:47 IMPRESSION: No evidence of pulmonary embolism. Bilateral pneumonia as described above with partial collapse of the left lower lobe. D/ / Armand Aguilar MD / Armand Aguilar MD Interpreting Provider: Armand Aguilar MD - EKG Data EKG attestation: Yes I reviewed and interpreted this EKG.
[2016-12-13 17:03] LABS: ABG HCO3 16.4 mEQ/L (21-27); ABG Oxygen Saturation 100 % (95-98); ABG PCO2 45 mmHg (35-45); ABG PO2 208 mmHg (85-104); ABG TCO2 17.8 mEq/L (20-26)
[2016-12-13 17:04] LABS: ABG PH 7.17 pH Units (7.32-7.45)
[2016-12-13 17:05] LABS: Blood Gas FiO2 100 %; Blood Gas PEEP 5 cm H2O; Blood Gas Respiration Rate 14; Blood Gas VT 500 cc
[2016-12-13 17:11] LABS: Calcium 7.6 mg/dL (8.6-10.8); Potassium 3.3 mEq/L (3.5-4.5)
[2016-12-13] MEDS ORDERED: Naloxone 0.4 MG/ML INJ IVP PRN (18:17)
[2016-12-13] MEDS ORDERED: Acetaminophen 325 MG TABLET PO PRN (18:17)
--- NOTE | 2016-12-13 18:34 | Internal Med History&Physical ---
<Raúl Bhatti P - Last Filed: 12/13/16 18:57> Date of Encounter: 12/13/16 Internal Medicine - H&P: HPI History of present illness: Ms. Perez is a 36 year old female Internal Medicine - H&P: Meds Albuterol Sulfate [Albuterol Inhaler] 2 puff IH Q4HR PRN #1 unit 11/15/15 [Rx] Docusate Sodium [Dok] 250 mg PO DAILY #30 capsule 03/09/16 [Rx] Folic Acid 1 mg PO DAILY 06/17/16 [History] Simethicone [Gas-X] 80 mg PO DAILY #30 tab.chew 08/16/16 [Rx] Nystatin [Nystatin Suspension] 5 ml PO QID #120 ml 09/17/16 [Rx] Calcium Carbonate/Vitamin D3 [Calcium 500-Vit D3 200 Tablet] 1 each PO DAILY # 30 tablet 10/25/16 [Rx] Sulfamethoxazole/Trimeth DS [Bactrim DS] 1 each PO DAILY #30 tablet 10/25/16 [Rx ] Beclomethasone Diprop 80mcg [Qvar 80 mcg] 1 puff IH BID #1 aer.w.adap 11/13/16 [ Rx] Bisacodyl [Dulcolax] 5 - 10 mg PO DAILY PRN #60 tablet 11/13/16 [Rx] Dexamethasone [Decadron] 4 mg PO BID #60 tablet 11/13/16 [Rx] Famotidine [Pepcid] 20 mg PO DAILY #30 tablet 11/13/16 [Rx] ALPRAZolam [Xanax 1 MG Tablet] 1 - 2 mg PO TID PRN #126 tablet 11/23/16 [Rx] HYDROcodone/Acet 10/325 mg [Bryson 10-325 mg] 1 - 2 tab PO Q4HR PRN #240 tab [Rx] Citalopram [CeleXA] 20 mg PO DAILY #30 tablet 12/04/16 [Rx] Gabapentin [Neurontin] 800 mg PO QID #120 tablet 12/04/16 [Rx] Ascorbic Acid [Vitamin C] 500 mg PO DAILY 12/13/16 [History] Ondansetron ODT [Zofran ODT] 4 mg PO Q6H PRN 06/01/17 [History] Allergies ethinyl estradiol [From Ortho Tri-Cyclen (28)] Allergy (Verified 11/01/16 23:20) Hives norgestimate [From Ortho Tri-Cyclen (28)] Allergy (Verified 11/01/16 23:20) Hives All Systems PM: A 10-system review of systems was performed and is negative for pertinent findings except as documented above in the HPI. - Constitutional Vitals: Temp Pulse Resp BP Pulse Ox 98.8 F 116 30 102/81 92 12/13/16 17:48 12/13/16 18:15 12/13/16 18:15 12/13/16 18:15 12/13/16 18:15 Internal Med - H&P Results - Labs CBC & Chem 7: 12/13/16 15:41 12/13/16 16:45 - Impressions ITS Impressions KUB X-Ray 12/13/16 18:08 IMPRESSION: Enteric tube in a post pyloric position. No evidence of bowel obstruction. D/ / Emanuel Strange MD / Emanuel Strange MD Interpreting Provider: Emanuel Strange MD - Attending Attestation I examined this patient and my medical decision-making was reviewed with the MAIL WEIGHER/PA/Advanced Practice Nurse/Resident Physician. I agree with the documented findings, disposition and treatment plan as described except to the extent set forth below. <Isma Escalante - Last Filed: 12/13/16 19:14> Date of Encounter: 12/13/16 Time of Encounter: 18:22 Assessment and Plan (1) Sepsis Current visit: Yes Status: Acute 35-year-old female presented with shortness of breath. Patient arrived with acute respiratory distress, emergently intubated. Thereafter went into cardiac arrest which is preceded by bradycardia refractory to atropine and epinephrine. Patient was seen to be in ventricular tachycardia without a pulse was cardioverted twice and ROSC was achieved. CPR lasted 7 minutes. CTA was negative for PE. Patient has history of aspiration pneumonia with multiple admissions. Last admission was in October where she was found to have pneumonia secondary to strep pneumonia and Haemophilus influenza treated with ceftriaxone, resistant to levaquin. During this admission patient left AMA. Currently patient is tachycardic, BP stable around systolic 100. CTA shows bilateral pneumonia with left lower lobe atelectasis. Leukocytosis 18.7 ABG pH 7.17 with PCO2 45 and PO2 208 on ventilator with breathing over vent at 36. BMP shows history of present illness with a serum creatinine of 3.05. During last admission several creatinine was 0.8. Patient had elevated troponin 2.98 Lactic acid 1.9 Given 3 L of normal saline. Urine shows white blood cell, bacteria, leukocyte esterase. Secondary to pneumonia, possible UTI. Plan: Vancomycin one-time dose, Cefepime CBC,BMP morning Blood cultures, sputum culture, ABG, TSH, urine drug screen, test, ethanol level, mag, phosphorus, acetaminophen, salicylates level We will turn off sedation and paralytic patient patient is unarousable obtain CT head. 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 Follows with Dr. Allison outpatient. Intubated, sedated Hx of COPD. solumedrol, scheduled duonebs. given one dose of vanc and started on cefepime. Qualifiers: Respiratory failure complication: hypoxia Qualified Code(s): J96.21 - Acute and chronic respiratory failure with hypoxia (3) Cardiac arrest Current visit: Yes Status: Acute At 1525 patient was noted to not have a pulse. This was preceded by bradycardia refractory to atropine. Patient was given epinephrine, chest compressions again and she was found to be in V. tach patient was shocked, thereafter given amnio and another dose of epinephrine. Patient again was shocked. Thereafter ROSC was achieved. Her vitals were 123 heart rate with oxygen saturation 69% and a blood pressure of 119/94. Currently patient is in sinus tachycardia, with blood pressure of 103/52 intubated and sedated. (4) DVT prophylaxis Current visit: Yes Status: Acute heparin (5) Infestation by bed bug Current visit: Yes Status: Acute has lice. permethrin Internal Medicine - H&P: HPI Chief complaint: sob Admitted From: Home Plans for Post Hospital Care: Home History of present illness: Ms. Perez is a 36 year old female history of pontine glioma status post radiation therapy, cigarette smoking, aspiration pneumonia, dysphagia, COPD on 4 L home oxygen presented to ER with chief complaint of shortness of breath. Patient was found by her 14-year-old daughter unresponsive and EMS was called. EMS upon arrival noted the patient oxygen saturation 98% and spoke with the paramedics. Grandmother states that the patient difficulty breathing over the past several days and family at home has been sick having upper rest of her symptoms. Furthermore upon arrival patient was noted to be in acute respiratory distress, altered consciousness and history is not obtained from her. She was tachypneic , generally purplish cyanotic coloration. Patient was emergently intubated. Thereafter she had bradycardia, was given atropine and epinephrine however bradycardia worsened and patient did not have a palpable femoral carotid pulse. Patient went to cardiac arrest. He was found to be in ventricular tachycardia and cardioverted twice with 200 J and then 360 J and ROSC obtained. Patient's EKG showed narrow complex tachycardia with a rate of 172. She was given 300 of amiodarone during the code. Postcode patient's EKG showed sinus tachycardia with rate of 111. Patient had a CTA which was negative for PE. Patient had a right femoral central line placed. Patient had leukocytosis of 18.7, without bandemia, ABG showed pH of 7.17 with a PCO2 of 45 and PO2 of 208 on ventilator. Patient has a TIA with creatinine of 3.05 and has no history of kidney disease. Troponin was elevated at 2.98. Lactic acid initially is 1.9. Patient was admitted in October for aspiration pneumonia secondary to Streptococcus pneumonia and Haemophilus influenza treated with ceftriaxone. At that time patient is intubated for 2 days. She left AGAINST MEDICAL ADVICE. Past Med Surg Social Fam HX - Past Medical History Medical history: asthma, cancer, seizures Psychiatric history: depression - Past Surgical History Surgical History: other - Social History Smoking Status: Current every day smoker Smokeless Tobacco Status: No Alcohol use: none Drug use: none ROS unobtainable: due to mental status All Systems PM: A 10-system review of systems was performed and is negative for pertinent findings except as documented above in the HPI. - Constitutional Vitals: Temp Pulse Resp BP Pulse Ox 98.3 F 119 28 100/62 93 12/13/16 14:40 12/13/16 17:11 12/13/16 17:53 12/13/16 17:53 12/13/16 17:53 General appearance: Present: A&O X 0 (intubated sedatated) - Head Head exam: Present: atraumatic Additional comments: lice - Eye Pupils: Present: fixed, PERRL - Neck Neck exam general surgery: Present: supple, trachea midline. Absent: lymphadenopathy - Respiratory Respiratory exam: Present: rhonchi, tachypnea Additional comments: intubated - Cardiovascular Cardiovascular exam: Present: +S1, +S2, tachycardia - GI/Abdominal GI/Abdominal exam: Present: normal bowel sounds, soft, no peritoneal signs. Absent: distended, tenderness - Extremities Exam Extremities exam: Present: warm, radial pulses palpable and symetrical. Absent : calf tenderness, cyanotic, pedal edema - Neurological Exam Additional comments: Unable to do neuro exam due to patient being intubated and sedated. - Skin Additional comments: Patient has bruising on the left medial knee, right femoral central line, left antecubital peripheral IV. She has breaks in her skin on her shins bilaterally : Without discharge, erythema Internal Med - H&P Results - Labs CBC & Chem 7: 12/13/16 15:41 12/13/16 16:45
[2016-12-13] MEDS ORDERED: Permethrin Cream Rinse 60 ML LIQUID TP ONE (18:43)
[2016-12-13] MEDS ORDERED: Lacri-Lube 3.5 GM TUBE BOTH EYES PRN (18:44)
[2016-12-13 18:49] LABS: Amphetamine Screen,Urine Negative ng/mL (Cutoff=1000); Barbiturate Screen,Urine Negative ng/mL (Cutoff=200); Benzodiazepines Screen,Urine Positive ng/mL (Cutoff=200); Cannabinoid Screen,Urine Positive ng/mL (Cutoff = 50); Cocaine Screen,Urine Negative ng/mL (Cutoff= 300); Opiate Screen,Urine Positive ng/mL (Cutoff=300); Phencyclidine Screen,Urine Negative ng/mL (Cutoff=25)
[2016-12-13] MEDS ORDERED: Levofloxacin 750 MG/150 ML 750 MG/150 ML BAG IVPB SCH (19:00)
[2016-12-13] MEDS ORDERED: Vancomycin 1,250 MG in D5% in Water 250 ML IVPB ONE (19:00)
[2016-12-13] MEDS ORDERED: Cefepime HCl 2,000 MG in D5% in Water (Mini-Bag+) 100 ML IVPB SCH (19:00)
[2016-12-13] MEDS ORDERED: Vancomycin 1,000 MG in D5% in Water 250 ML IVPB SCH (19:00)
[2016-12-13 19:55] LABS: Albumin 2.8 g/dL (3.5-5.0); Albumin/Globulin Ratio 0.8 (1.1-2.2); Calcium 8.4 mg/dL (8.6-10.8); Globulin 3.5 g/dL (2.4-3.5); Total Protein 6.3 g/dL (6.0-8.3)
[2016-12-13 19:56] LABS: Magnesium 1.8 mg/dL (1.6-2.6); Phosphorous 5.1 mg/dL (2.3-4.7)
[2016-12-13 19:57] LABS: Acetaminophen < 1.0 mcg/mL (10-30); Ethanol < 10 mg/dL (0-10)
[2016-12-13 20:13] LABS: ABG Base Excess -11.5 mEq/L (-2.0 to 3.0); ABG HCO3 12.6 mEQ/L (21-27); ABG Oxygen Saturation 95 % (95-98); ABG PCO2 25 mmHg (35-45); ABG PH 7.31 pH Units (7.32-7.45); ABG PO2 83 mmHg (85-104); ABG TCO2 13.4 mEq/L (20-26); Blood Gas FiO2 100 %
[2016-12-13 20:19] LABS: Adenovirus Not Detected (Not Detect); Bordetella Pertussis Not Detected (Not Detect); Chlamydophila pneumoniae Not Detected (Not Detect); Coronavirus 229E Not Detected (Not Detect); Coronavirus HKU1 Not Detected (Not Detect); Coronavirus NL63 Not Detected (Not Detect); Coronavirus OC43 Not Detected (Not Detect); Human Metapneumovirus Not Detected (Not Detect); Human Rhinovirus/Enterovirus Not Detected (Not Detect); Influenza A Subtype 2009 H1 Not Detected (Not Detect); Influenza A Untypeable Not Detected (Not Detect); Influenza B Not Detected (Not Detect); Mycoplasma pneumoniae Not Detected (Not Detect); Parainfluenza Virus 1 Not Detected (Not Detect); Parainfluenza Virus 2 Not Detected (Not Detect); Parainfluenza Virus 3 Not Detected (Not Detect); Parainfluenza Virus 4 Not Detected (Not Detect); Respiratory Syncytial Virus Not Detected (Not Detect)
[2016-12-13] MEDS: Chlorhexidine Rinse 15 ML MOUTHWASH MM SCH (20:23)
[2016-12-13] MEDS: Ringers Solution, Lactated 1,000 ML IVC SCH (20:24)
[2016-12-13] MEDS: Ipratropium/Albuterol Neb 3 ML IH SCH (22:31)
[2016-12-13] MEDS ORDERED: SODIUM CHLORIDE 0.9% IVP PRN (22:34)
[2016-12-13] MEDS ORDERED: VECURONIUM IVP PRN (22:34)
[2016-12-13 22:35] LABS: ABG Base Excess -12.9 mEq/L (-2.0 to 3.0); ABG HCO3 11.5 mEQ/L (21-27); ABG Oxygen Saturation 99 % (95-98); ABG PCO2 24 mmHg (35-45); ABG PH 7.29 pH Units (7.32-7.45); ABG PO2 141 mmHg (85-104); ABG TCO2 12.2 mEq/L (20-26)
[2016-12-13 22:36] LABS: Blood Gas FiO2 100 %
[2016-12-13] MEDS: *HR* Vecuronium 10 MG VIAL IVP PRN (23:01)
[2016-12-13] MEDS: FentaNYL (PF) 1,000 MCG in 0.9 % Sodium Chloride 80 ML IVC SCH (23:07)
[2016-12-13] MEDS: Lacri-Lube 3.5 GM TUBE BOTH EYES SCH (23:08)
[2016-12-14] MEDS: Lacri-Lube 3.5 GM TUBE BOTH EYES SCH ×7 (00:33→23:31)
[2016-12-14] MEDS: methylPREDNISolone 125 MG/2 ML VIAL IVP SCH ×5 (00:33→23:31)
[2016-12-14 00:37] LABS: Hematocrit 48.1 % (35.3-44.9); Hemoglobin 15.2 g/dL (11.5-15.4); Mean Corpuscular HGB Conc 31.6 g/dL (31.6-35.5); Mean Corpuscular Hemoglobin 31.9 pg (28.0-33.3); Mean Corpuscular Volume 100.8 fL (83.0-100.0); Mean Platelet Volume 9.9 fL (9.4-12.4); Nucleated Red Blood Cells 0.1 /100 WBC (0); Platelet Count 252 K/mcL (140-400); Red Blood Count 4.77 M/mcL (3.82-4.97); Red Cell Distribution Width 16.2 % (11.5-14.5)
[2016-12-14 00:46] LABS: Magnesium 1.6 mg/dL (1.6-2.6); Phosphorous 5.2 mg/dL (2.3-4.7)
[2016-12-14 00:47] LABS: Calcium 7.7 mg/dL (8.6-10.8); Potassium 3.2 mEq/L (3.5-4.5)
[2016-12-14 01:11] LABS: Basophils # 0.3 K/mcL (0.0-0.2); Lymphocytes # 0.5 K/mcL (0.6-4.6); Monocytes # 0.5 K/mcL (0.0-1.3); Neutrophils # 25.5 K/mcL (1.6-8.9); Platelet Clumps Few (Not Present); Platelet Estimate Normal (Normal)
[2016-12-14] MEDS: Potassium Chloride 40 MEQ/200 ML BAG IVPB PRN ×2 (01:19→07:01)
[2016-12-14] MEDS ORDERED: Potassium Phosphate 44 MEQ in 0.9 % Sodium Chloride 250 ML IVPB PRN (01:35)
[2016-12-14] MEDS ORDERED: Calcium Gluconate 1,000 MG in D5% in Water 100 ML IVPB PRN (01:35)
[2016-12-14] MEDS ORDERED: Potassium Chloride 40 MEQ/200 ML BAG IVPB PRN (01:35)
[2016-12-14] MEDS ORDERED: 0.9 % Sodium Chloride 1,000 ML ONE (02:54)
[2016-12-14] MEDS: Norepinephrine 4 MG in D5% in Water 250 ML IVC SCH ×2 (02:57→18:17)
[2016-12-14 03:09] LABS: Adenovirus F 40/41 PCR Not detected (Not detect); Astrovirus PCR Not detected (Not detect); C.difficile Toxin A/B by PCR Not detected (Not detect); Campylobacter by PCR Not detected (Not detect); Cryptosporidium by PCR Not detected (Not detect); Cyclospora cayetanensis PCR Not detected (Not detect); E. coli O157 by PCR Not detected (Not detect); Entamoeba histolytica PCR Not detected (Not detect); Enteroaggregative E.coli(EAEC) Not detected (Not detect); Enteropathogenic E.coli(EPEC) Not detected (Not detect); Enterotoxigenic E.coli (ETEC) Not detected (Not detect); Giardia lamblia PCR Not detected (Not detect); Norovirus GI/GII PCR ***DETECTED*** (Not detect); Plesiomonas shigelloides PCR Not detected (Not detect); Rotavirus A PCR Not detected (Not detect); Salmonella PCR Not detected (Not detect); Sapovirus PCR Not detected (Not detect); Shig/EnteroinvasiveE coli EIEC Not detected (Not detect); Shigalike tox-prod E coli STEC Not detected (Not detect); Vibrio PCR Not detected (Not detect); Vibrio cholerae PCR Not detected (Not detect); Yersinia enterocolitica PCR Not detected (Not detect)
[2016-12-14] MEDS: Ipratropium/Albuterol Neb 3 ML IH SCH ×4 (04:10→21:30)
[2016-12-14 04:54] LABS: ABG Base Excess -14.4 mEq/L (-2.0 to 3.0); ABG HCO3 12.6 mEQ/L (21-27); ABG Oxygen Saturation 93 % (95-98); ABG PCO2 33 mmHg (35-45); ABG PO2 82 mmHg (85-104); ABG TCO2 13.6 mEq/L (20-26); Blood Gas FiO2 70 %
[2016-12-14 04:56] LABS: ABG PH 7.19 pH Units (7.32-7.45)
[2016-12-14] MEDS ORDERED: Piperacillin/Tazobactam 3.375 GM in D5% in Water (Mini-Bag+) 100 ML IVPB SCH (05:00)
[2016-12-14] MEDS: Ringers Solution, Lactated 1,000 ML IVC SCH ×3 (05:13→20:15)
[2016-12-14 05:54] LABS: Red Cell Distribution Width 15.9 % (11.5-14.5)
[2016-12-14 05:55] LABS: Hematocrit 45.6 % (35.3-44.9); Hemoglobin 14.8 g/dL (11.5-15.4); Mean Corpuscular HGB Conc 32.5 g/dL (31.6-35.5); Mean Corpuscular Hemoglobin 32.2 pg (28.0-33.3); Mean Corpuscular Volume 99.1 fL (83.0-100.0); Mean Platelet Volume 9.8 fL (9.4-12.4); Platelet Count 205 K/mcL (140-400)
[2016-12-14 05:57] LABS: Lymphocytes # 0.3 K/mcL (0.6-4.6)
--- NOTE | 2016-12-14 06:00 | Event Note ---
Date of Encounter: 12/13/16 Time of Encounter: 09:00 Patient was admitted to the ICU after presentation to the emergency department respiratory distress. The patient suffered a cardiac arrest in the emergency department that involved an initial bradycardia that did not respond to atropine and the patient subsequently developed pulseless ventricular tachycardia. She was defibrillated twice. Patient was given a total of 2.5 mg of epinephrine and a 300 mg loading dose of amiodarone. Spontaneous return of circulation was then achieved after approximately 7 minutes. When I first examined the patient she was on propofol and intubated in the intensive care unit. In order to assess her neurologic status we turned off all sedation and after approximately an hour there was no evidence of purposeful movements or following commands. CT of the head was obtained and had no acute changes. After discussion with the aircraft maintenance supervisor and the decision was made to institute hypothermia protocol with a goal cooling temperature of 34 degrees Celsius. This was discussed with the family at the bedside and they were in agreement with the plan.
[2016-12-14 06:07] LABS: Albumin 2.3 g/dL (3.5-5.0); Albumin/Globulin Ratio 0.7 (1.1-2.2); Bilirubin,Total 0.7 mg/dL (0.2-1.2); Calcium 7.8 mg/dL (8.6-10.8); Globulin 3.2 g/dL (2.4-3.5); Magnesium 1.3 mg/dL (1.6-2.6); Phosphorous 4.6 mg/dL (2.3-4.7); Potassium 3.7 mEq/L (3.5-4.5); Total Protein 5.5 g/dL (6.0-8.3)
[2016-12-14 06:18] LABS: Monocytes # 0.3 K/mcL (0.0-1.3); Neutrophils # 30.5 K/mcL (1.6-8.9); Platelet Estimate Normal (Normal)
[2016-12-14 06:28] LABS: Thyroid Stimulating Hormone 1.899 mcIU/mL (0.350-4.840)
[2016-12-14] MEDS ORDERED: Vancomycin 1,000 MG in D5% in Water 250 ML IVPB SCH (07:00)
[2016-12-14] MEDS: *HR* Vecuronium 10 MG VIAL IVP PRN ×2 (07:22→20:16)
[2016-12-14] MEDS: Magnesium Sulfate 2 GM in D5% in Water 100 ML IVPB PRN (08:20)
[2016-12-14] MEDS: Chlorhexidine Rinse 15 ML MOUTHWASH MM SCH ×2 (08:26→20:16)
[2016-12-14] MEDS: Pantoprazole 40 MG VIAL IVPB SCH (08:26)
[2016-12-14] MEDS ORDERED: D5% in Water 1,000 ML IVC PRN (09:01)
[2016-12-14] MEDS ORDERED: Dextrose Gel 15 GM PO PRN ×2 (09:01)
[2016-12-14] MEDS ORDERED: *HR* Dextrose 50 % in Water (Syg) 50 ML SYRINGE IVP PRN (09:01)
[2016-12-14 09:21] LABS: Potassium,Urine 45.9 mEq/L
[2016-12-14] MEDS: FentaNYL (PF) 1,000 MCG in 0.9 % Sodium Chloride 80 ML IVC SCH ×3 (09:25→19:30)
[2016-12-14 09:27] LABS: ABG Base Excess -8.6 mEq/L (-2.0 to 3.0); ABG HCO3 17.4 mEQ/L (21-27); ABG Oxygen Saturation 96 % (95-98); ABG PCO2 37 mmHg (35-45); ABG PH 7.28 pH Units (7.32-7.45); ABG PO2 96 mmHg (85-104); ABG TCO2 18.5 mEq/L (20-26); Blood Gas FiO2 60 %
--- NOTE | 2016-12-14 09:45 | Pulmonology Consult Note ---
<Becca Lott - Last Filed: 12/14/16 13:33> Date of Encounter: 12/14/16 Time of Encounter: 11:24 Assessment and Plan (1) Sepsis Current Visit: Yes Status: Acute Patient met sepsis criteria on admission due to tachycardia, hypotension, tachypnea, and elevated WBC. Sepsis is likely secondary to aspiration pneumonia , and possibly a UTI. Lactic acid has been within normal limits - 1.4 this morning. WBC trending up 18 > 27 > 31. Patient was initially given a dose of clindamycin, a dose of levaquin, a dose of zosyn and a dose of vancomycin. She was eventually placed on cefepime, however vancomycin was restarted due to worsening leukocytosis. (Antibiotics day 2). - Continue cefepime and vancomycin - Follow vitals and labs (WBC and lactic acid) - Continue with vasopressors as needed to treat hypotension - Follow cultures Qualifiers: Sepsis type: sepsis due to unspecified organism Qualified Code(s): A41.9 - Sepsis, unspecified organism (2) Acute on chronic respiratory failure Current Visit: No Status: Resolved Patient intubated in the ED for acute respiratory failure believed secondary to aspiration pneumonia though could have other causes. Patient does have underlying COPD. She remains intubated and sedated. Vent settings: RR16, TV550, 60% FiO2, PEEP 5.0. CXR shows bilateral aspiration pneumonia with underlying chronic changes. Currently on vancomycine and cefepime (antibiotics day 2). Prelimb micro with lots of WBC and gram negative rods. - Continue with ventilator support - will wean as tolerated - Continue antibiotics - Treatment for COPD - steroids and bronchodilators Qualifiers: Respiratory failure complication: unspecified whether with hypoxia or hypercapnia Qualified Code(s): J96.20 - Acute and chronic respiratory failure , unspecified whether with hypoxia or hypercapnia (3) Acute renal failure Current Visit: Yes Status: Acute Patient with acute renal failure. Creatinine improving 1.9 > 1.43. - Continue to monitor kidney function - Fluids - lactated ringer at 125 mls/hr - Avoid nephrotoxic medications as possible Qualifiers: Acute renal failure type: unspecified Qualified Code(s): N17.9 - Acute kidney failure, unspecified (4) Altered level of consciousness Current Visit: Yes Status: Acute Patient was found unresponsive by daughter. Unknown time of unresponsiveness. Cause of altered level of consciousness is unknown though by drug use and aspiration are possible causes. UDS positive for opiates, benzos, and marijuana. Head CT negative for acute abnormality. For now patient is intubated and sedated on hypothermia protocol. - Continue sedation with hypothermia protocol today. After will try sedation holiday and see how patient does. (5) Aspiration pneumonia Current Visit: No Status: Acute Patient with aspiration pneumonia. CXR shows BL pneumonia with underlying chronic changes. 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 Currently patient is intubated and sedated. She is on vancomycin and cefepime. Prelimb sputum culture shows lots of WBC and gram negative rods. - Continue vancomycin and cefepime (Antibiotics day 2). - Will wean ventilatory support as tolerated. - Follow microbiology Qualifiers: Aspiration pneumonia type: unspecified Laterality: bilateral Lung location: unspecified part of lung Qualified Code(s): J69.0 - Pneumonitis due to inhalation of food and vomit (6) Cardiac arrest Current Visit: Yes Status: Acute Patient is s/p cardiac arrest in the ED yesterday. She is currently on hypothermic protocol - temperature goal of 34 deg C for total of 24 hours. EKG this morning showed sinus bradycardia as expected with the hypothermia protocol. Troponin decreasing 2.98 > 1.06. - Continue hypothermic protocol for 24 hours as long as patient's BP and HR can tolerate it - Vasopressor support as needed - ECHO pending - Cardiac monitoring (7) Hypotension Current Visit: Yes Status: Acute Patient with hypotension requiring levophed overnight. Likely secondary to sedation and hypothermia protocol. Will continue to monitor. Believe this will improve as we are able to start re-warming and decrease sedation - Vasopressor to maintain MAP >65 Qualifiers: Hypotension type: unspecified hypotension type Qualified Code(s): I95.9 - Hypotension, unspecified (8) COPD (chronic obstructive pulmonary disease) Current Visit: Yes Status: Acute Patient with history of COPD on home O2 of 4L. This is likely contributing to patients acute respiratory failure. On bronchodilators and steroids - Continue Solu-medrol 60mg Q6H - Symbicort and schedule duoneb - Antibiotics to treat aspiration pneumonia - Wean ventilatory support as tolerated. Qualifiers: COPD type: unspecified COPD Qualified Code(s): J44.9 - Chronic obstructive pulmonary disease, unspecified (9) Norovirus Current Visit: Yes Status: Acute Patient with profuse diarrhea. GI panel found to be Norovirus +. 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 Per oncology notes, tumor is stable. Patient follows with Dr. Allison outpatient. Per notes, patient has dysphagia and right sided weakness secondary to this glioma. (11) Chronic use of steroids Current Visit: Yes Status: Acute Patient is on daily dextromethasone 4mg PO BID to help decrease swelling associated with her glioma. 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 Currently on solu-medrol 60mg Q6H. When time to wean, she will need to wean back to her home dose. (12) DVT prophylaxis Current Visit: No Status: Acute Heparin for DVT prophylaxis Neuro: Found unresponsive/AMS cause unknown. On hypothermia protocol s/p cardiac arrest until 2am 12/15/2016 (24 hours). UDS + opiates, benzos and marijuana. Continue sedation with fentanyl and propofol. Pulm: Acute respiratory failure likely secondary to BL aspiration pneumonia and COPD. Currently intubated - vent RR16, TV550, 60% FiO2, PEEP of 5. On antibitoics, bronchodilators and steroids. Follow cutlutre. Cardiac: s/p cardiac arrest on hypothermic protocol. Hypotensive and bradycardic likely secondary to hypothermic protocol. Trop down trending 2.98 > 1.06. ECHO pending. GI: Non-anion gap metabolic acidosis secondayr to diarrhea from norovirus. Monitor electrolytes, on protocol. Continue LR @ 125mls/hr. Renal: SIENA - improving. UA suggestive of UTI. Follow cultures ID: Sepsis likely secondary to pneumonia and possible UTI. Monitor vitals and labs. Continue vancomycin and cefepime. Follow culutres Heme: heparin for DVT ppx Endo: Q2 accuchecks while on cooling protocol. SSI and hypoglycemic protocol. Likely secondary adrenal suppression - will need to be taper to home dose. Code: Full Lines: R fem CVC, hernandez, ET, OG, rectal Dispo: ICU History of Present Illness Consult date: 12/14/16 Reason for consult: other (ICU care) Chief complaint: Acute respiratory failure, unresponsive History of present illness: Ms. Neel Perez is a 36yo female with PMH including pontine glioma s/p radiation therapy with associated dysphagia and right sideded weakness, recurrent aspiration pneumonia secondary to patients dysphagia, and COPD on 4 L home oxygen. Per reports, patient was found by her daughter unresponsive and EMS was called. Unknown how long patient was unresponsive for at home. On arrival, EMS noted that the patient's O2 saturaiton was 98% and reports state that the patient was able to communication. Family reports that patient has had shortness of breath and difficulty breathing for several days. They also report that several family members have had an upper respiratory infection. When patient arrived in the ED, she was found to be altered and in acute respiratory distress. Patient was emergently intubated. Shortly after she was bradycardic resistant to atropine and epinephrine. Bradycardia worsened and patient lost pulses. CPR was started and she was found to be in pulseless ventricular tachycardia. She received 3 shocks, 1.5mg epinephrine and 300mg amiodarone before ROSC was obtained. A right femoral central line was placed. Patient was admitted to the ICU where hypothermia protocol was started. Sedation was turned off for over an hour with no response or purposeful movements. Head CT was negative for acute abnormality. Patient seen and examined this morning. She was sedated with propofol and fentanyl for hypothermia protocol. Cooling blanket in place. Pupils were equal and reactive to light. Lungs diminished with rhonchi on the left. Abdomen soft non-tender. Past Med Surg Social Fam HX - Past Medical History Medical history: asthma, cancer, seizures Psychiatric history: depression - Past Surgical History Surgical History: other - Social History Smoking Status: Current every day smoker Smokeless Tobacco Status: No Alcohol use: none Drug use: none Medications and Allergies Albuterol Sulfate [Albuterol Inhaler] 2 puff IH Q4HR PRN #1 unit 11/15/15 [Rx] Docusate Sodium [Dok] 250 mg PO DAILY #30 capsule 03/09/16 [Rx] Folic Acid 1 mg PO DAILY 06/17/16 [History] Simethicone [Gas-X] 80 mg PO DAILY #30 tab.chew 08/16/16 [Rx] Nystatin [Nystatin Suspension] 5 ml PO QID #120 ml 09/17/16 [Rx] Calcium Carbonate/Vitamin D3 [Calcium 500-Vit D3 200 Tablet] 1 each PO DAILY # 30 tablet 10/25/16 [Rx] Sulfamethoxazole/Trimeth DS [Bactrim DS] 1 each PO DAILY #30 tablet 10/25/16 [Rx ] Beclomethasone Diprop 80mcg [Qvar 80 mcg] 1 puff IH BID #1 aer.w.adap 11/13/16 [ Rx] Bisacodyl [Dulcolax] 5 - 10 mg PO DAILY PRN #60 tablet 11/13/16 [Rx] Dexamethasone [Decadron] 4 mg PO BID #60 tablet 11/13/16 [Rx] Famotidine [Pepcid] 20 mg PO DAILY #30 tablet 11/13/16 [Rx] ALPRAZolam [Xanax 1 MG Tablet] 1 - 2 mg PO TID PRN #126 tablet 11/23/16 [Rx] HYDROcodone/Acet 10/325 mg [[place] 10-325 mg] 1 - 2 tab PO Q4HR PRN #240 tab [Rx] Citalopram [CeleXA] 20 mg PO DAILY #30 tablet 12/04/16 [Rx] Gabapentin [Neurontin] 800 mg PO QID #120 tablet 12/04/16 [Rx] Ascorbic Acid [Vitamin C] 500 mg PO DAILY 12/13/16 [History] Ondansetron ODT [Zofran ODT] 4 mg PO Q6H PRN 12/13/16 [History] Allergies ethinyl estradiol [From Ortho Tri-Cyclen (28)] Allergy (Verified 11/01/16 23:20) Hives norgestimate [From Ortho Tri-Cyclen (28)] Allergy (Verified 11/01/16 23:20) Hives ROS unobtainable: due to endotracheal tube, due to mental status All Systems: A 10-system review of systems was performed and is negative for pertinent findings except as documented above in the HPI. Physical Examination Vital Signs: Vital Signs, Last 4 Hours Temp Pulse Resp BP Pulse Ox 12/14/16 09:32 16 84/58 98 12/14/16 09:00 93.2 F L 68 16 83/56 96 12/14/16 08:00 93.1 F L 67 16 89/62 97 12/14/16 07:44 16 99 12/14/16 07:00 92.8 F L 68 19 102/87 99 12/14/16 06:05 16 99 12/14/16 06:00 94.2 F L 75 16 114/88 99 General appearance: other (Intubated and sedated) Eyes: nonicteric Effort: normal Inspection: normal Auscultation: left: diminished breath sounds, wheezes, right: clear Cardiovascular: regular rate and rhythm Gastrointestinal: soft, non-tender, non-distended Integumentary: normal Extremities: no cyanosis, no edema, no clubbing Musculoskeletal: no deformities unable to assess due to mental status Ventilator Settings Ventilator Settings: Ventilator Settings, Last 8 Hours Ventilator Mode VC+ Ventilator Mode VC+ Ventilator Mode VC+ Ventilator Mode VC+ Ventilator Mode VC+ Ventilator Mode VC+ Ventilator Mode VC+ Ventilator Mode VC+ Ventilator Mode VC+ Ventilator Mode VC+ Ventilator Mode VC+ Ventilator Mode VC+ Ventilator Mode VC+ Ventilator Tidal Volume 550 Setting Ventilator Tidal Volume 500 Setting Ventilator Tidal Volume 550 Setting Ventilator Tidal Volume 550 Setting Ventilator Tidal Volume 500 Setting Ventilator Tidal Volume 500 Setting Ventilator Tidal Volume 500 Setting Ventilator Tidal Volume 500 Setting Ventilator Tidal Volume 500 Setting Ventilator Tidal Volume 500 Setting Ventilator Tidal Volume 500 Setting Ventilator Tidal Volume 500 Setting Ventilator Tidal Volume 500 Setting Ventilator Tidal Volume 500 Setting Ventilator Respiratory Rate 16 Setting Ventilator Respiratory Rate 16 Setting Ventilator Respiratory Rate 16 Setting Ventilator Respiratory Rate 16 Setting Ventilator Respiratory Rate 16 Setting Ventilator Respiratory Rate 16 Setting Ventilator Respiratory Rate 16 Setting Ventilator Respiratory Rate 16 Setting Ventilator Respiratory Rate 16 Setting Ventilator Respiratory Rate 16 Setting Ventilator Respiratory Rate 16 Setting Ventilator Respiratory Rate 16 Setting Ventilator Respiratory Rate 14 Setting Ventilator Respiratory Rate 16 Setting Actual Respiratory Rate 16 Actual Respiratory Rate 16 Actual Respiratory Rate 16 Actual Respiratory Rate 16 Actual Respiratory Rate 19 Actual Respiratory Rate 16 Actual Respiratory Rate 17 Actual Respiratory Rate 16 Actual Respiratory Rate 22 Actual Respiratory Rate 16 Actual Respiratory Rate 27 Actual Respiratory Rate 22 Actual Respiratory Rate 21 Positive End Expiratory 5 Pressure Positive End Expiratory 5 Pressure Positive End Expiratory 5 Pressure Positive End Expiratory 5 Pressure Positive End Expiratory 5 Pressure Positive End Expiratory 5 Pressure Positive End Expiratory 5 Pressure Positive End Expiratory 5 Pressure Positive End Expiratory 5 Pressure Positive End Expiratory 5 Pressure Positive End Expiratory 5 Pressure Positive End Expiratory 5 Pressure Positive End Expiratory 5 Pressure Positive End Expiratory 5 Pressure Peak Inspiratory Airway 31 Pressure Peak Inspiratory Airway 32 Pressure Peak Inspiratory Airway 31 Pressure Peak Inspiratory Airway 31 Pressure Peak Inspiratory Airway 32 Pressure Peak Inspiratory Airway 22 Pressure Peak Inspiratory Airway 19 Pressure Peak Inspiratory Airway 16 Pressure Peak Inspiratory Airway 16 Pressure Peak Inspiratory Airway 15 Pressure Peak Inspiratory Airway 22 Pressure Peak Inspiratory Airway 22 Pressure Results - Laboratory Findings CBC and BMP: 12/14/16 11:20 12/14/16 11:20 ABG ABG pH 7.28 pH Units (7.32-7.45) L 12/14/16 09:16 ABG pCO2 37 mmHg (35-45) 12/14/16 09:16 ABG pO2 96 mmHg (85-104) 12/14/16 09:16 ABG O2 Saturation 96 % (95-98) 12/14/16 09:16 Abnormal lab findings: Abnormal lab results WBC 31.1 K/mcL (4.3-11.1) H* 12/14/16 05:44 Hct 45.6 % (35.3-44.9) H 12/14/16 05:44 RDW 15.9 % (11.5-14.5) H 12/14/16 05:44 Immature Gran % 5.3 % (0-4) H 12/13/16 15:41 Band Neutrophils % 30.0 % (0-4) H 12/14/16 05:44 Promyelocytes % 1.0 % (0) H 12/14/16 00:25 Neutrophils # 30.5 K/mcL (1.6-8.9) H 12/14/16 05:44 Lymphocytes # 0.3 K/mcL (0.6-4.6) L 12/14/16 05:44 Basophils # 0.3 K/mcL (0.0-0.2) H 12/14/16 00:25 Nucleated RBCs/100 WBC 0.1 /100 WBC (0) H 12/14/16 00:25 Reactive Lymphocytes Present (Not Present) A 12/13/16 15:41 Clumped Platelets Few (Not Present) A 12/14/16 00:25 Polychromasia 1+ (Not Present) A 12/13/16 15:41 ABG pH 7.28 pH Units (7.32-7.45) L 12/14/16 09:16 ABG HCO3 17.4 mEQ/L (21-27) L 12/14/16 09:16 ABG Total CO2 18.5 mEq/L (20-26) L 12/14/16 09:16 ABG Base Excess -8.6 mEq/L (-2.0 to 3.0) L 12/14/16 09:16 Chloride 117 mEq/L (98-109) H 12/14/16 05:44 Carbon Dioxide 17 mEq/L (19-29) L 12/14/16 05:44 BUN 23 mg/dL (7-20) H 12/14/16 05:44 Creatinine 1.43 mg/dL (0.57-1.11) H 12/14/16 05:44 Est GFR ( Amer) 51 (> 60) L 12/14/16 05:44 Est GFR (Non-Af Amer) 42 (> 60) L 12/14/16 05:44 Glucose 110 mg/dL (70-99) H 12/14/16 05:44 POC Glucose 97 (58-89) H 12/14/16 00:26 Calculated Osmolality 302 (280-300) H 12/14/16 05:44 Calcium 7.8 mg/dL (8.6-10.8) L 12/14/16 05:44 Magnesium 1.3 mg/dL (1.6-2.6) L 12/14/16 05:44 AST 167 Units/L (5-34) H 12/14/16 05:44 ALT 60 Units/L (0-55) H 12/14/16 05:44 Troponin I 1.06 ng/mL (0-0.03) H* 12/14/16 05:44 B-Natriuretic Peptide 150 pg/mL (0-100) H 12/13/16 16:45 Serum Total Protein 5.5 g/dL (6.0-8.3) L 12/14/16 05:44 Albumin 2.3 g/dL (3.5-5.0) L 12/14/16 05:44 Albumin/Globulin Ratio 0.7 (1.1-2.2) L 12/14/16 05:44 Urine Color Taylor (Yellow) A 12/13/16 15:06 Urine Clarity Turbid (Clear) A 12/13/16 15:06 Urine Protein 100 mg/dL (Neg-Trace) H 12/13/16 15:06 Urine Ketones 15 mg/dL (Negative) H 12/13/16 15:06 Urine Blood Large (Negative) H 12/13/16 15:06 Urine Bilirubin Moderate (Negative) H 12/13/16 15:06 Ur Leukocyte Esterase Large (Negative) H 12/13/16 15:06 Urine Microscopic RBC 50-100 per hpf (0-3) H 12/13/16 15:06 Urine Microscopic WBC 30-50 per hpf (0-3) H 12/13/16 15:06 Urine Bacteria Many per hpf (None-Few) H 12/13/16 15:06 Ur Culture Indicated? YES (NO) A 12/13/16 15:06 Stl Norovirus GI/GII PCR DETECTED (Not detect) A 12/13/16 21:44 Urine Opiates Screen Positive ng/mL (Dgfogq=550) H 12/13/16 18:20 Acetaminophen < 1.0 mcg/mL (10-30) L 12/13/16 19:30 U Benzodiazepines Scrn Positive ng/mL (Yxbnfx=435) H 12/13/16 18:20 U Marijuana (THC) Screen Positive ng/mL (Cutoff = 50) H 12/13/16 18:20 - Microbiology Findings Microbiology Findings: Microbiology, Last 48 Hours 12/14/16 04:45 Sputum Culture - Preliminary Sputum - Diagnostic Findings CT scan - chest: report reviewed, image reviewed Additional studies: Chest X-Ray 12/13/16 14:49 IMPRESSION: Endotracheal tube slightly low in position. Recommend retracting 2 cm. Pulmonary venous congestion. There is slight bilateral perihilar infiltrate also suggested, which may be due to mild edema or pneumonia or atelectasis. D/ / Roque Hernandez MD / Roque Hernandez MD Interpreting Provider: Roque Hernandez MD Chest CTA 12/13/16 15:47 IMPRESSION: No evidence of pulmonary embolism. Bilateral pneumonia as described above with partial collapse of the left lower lobe. D/ / Armand Aguilar MD / Armand Aguilar MD Interpreting Provider: Armand Aguilar MD X-Ray 12/13/16 18:08 IMPRESSION: Enteric tube in a post pyloric position. No evidence of bowel obstruction. D/ / Emanuel Strange MD / Emanuel Strange MD Interpreting Provider: Emanuel Strange MD Head CT 12/13/16 19:04 IMPRESSION: Limited examination despite several repeat scans due to patient motion. No evidence of an acute intracranial abnormality. Consider short-term CT follow-up if clinical symptoms persist. D/ / Jayro Christianson MD / Jayro Christianson MD Interpreting Provider: Jayro Christianson MD - Clinical Findings Intake & Output: Intake & Output 12/13/16 12/14/16 12/14/16 23:59 07:59 15:59 Intake Total 350 / 350 3463 / 3463 Output Total 700 / 700 850 / 850 Balance -350 / -350 2613 / 2613 Weight 69 kg Consult Discharge Plan - Plan Referrals: NO,PCP [Primary Care Provider] - <Cheryl Garcia - Last Filed: 12/14/16 17:09> Date of Encounter: 12/14/16 All Systems: A 10-system review of systems was performed and is negative for pertinent findings except as documented above in the HPI. Physical Examination Vital Signs: Vital Signs, Last 4 Hours Temp Pulse Resp BP Pulse Ox 12/14/16 16:00 93 F L 60 16 91/58 99 12/14/16 15:35 16 98 12/14/16 15:00 92.9 F L 57 16 88/59 99 12/14/16 14:00 93.3 F L 58 16 91/62 98 Ventilator Settings Ventilator Settings: Ventilator Settings, Last 8 Hours Ventilator Mode VC+ Ventilator Mode VC+ Ventilator Mode VC+ Ventilator Mode VC+ Ventilator Mode VC+ Ventilator Mode VC+ Ventilator Tidal Volume 550 Setting Ventilator Tidal Volume 550 Setting Ventilator Tidal Volume 550 Setting Ventilator Tidal Volume 550 Setting Ventilator Tidal Volume 550 Setting Ventilator Tidal Volume 550 Setting Ventilator Respiratory Rate 16 Setting Ventilator Respiratory Rate 16 Setting Ventilator Respiratory Rate 16 Setting Ventilator Respiratory Rate 16 Setting Ventilator Respiratory Rate 16 Setting Ventilator Respiratory Rate 16 Setting Actual Respiratory Rate 16 Actual Respiratory Rate 16 Actual Respiratory Rate 16 Actual Respiratory Rate 16 Actual Respiratory Rate 16 Positive End Expiratory 5 Pressure Positive End Expiratory 5 Pressure Positive End Expiratory 5 Pressure Positive End Expiratory 5 Pressure Positive End Expiratory 5 Pressure Positive End Expiratory 5 Pressure Peak Inspiratory Airway 32 Pressure Peak Inspiratory Airway 31 Pressure Peak Inspiratory Airway 33 Pressure Peak Inspiratory Airway 31 Pressure Peak Inspiratory Airway 30 Pressure Peak Inspiratory Airway 32 Pressure Peak Inspiratory Airway 26 Pressure Peak Inspiratory Airway 30 Pressure Peak Inspiratory Airway 33 Pressure Peak Inspiratory Airway 31 Pressure Results - Laboratory Findings CBC and BMP: 12/14/16 11:20 12/14/16 11:20 ABG ABG pH 7.28 pH Units (7.32-7.45) L 12/14/16 09:16 ABG pCO2 37 mmHg (35-45) 12/14/16 09:16 ABG pO2 96 mmHg (85-104) 12/14/16 09:16 ABG O2 Saturation 96 % (95-98) 12/14/16 09:16 Abnormal lab findings: Abnormal lab results WBC 40.9 K/mcL (4.3-11.1) H* 12/14/16 11:20 RDW 15.9 % (11.5-14.5) H 12/14/16 11:20 Immature Gran % 5.3 % (0-4) H 12/13/16 15:41 Band Neutrophils % 39.0 % (0-4) H 12/14/16 11:20 Metamyelocytes % 1.0 % (0) H 12/14/16 11:20 Promyelocytes % 1.0 % (0) H 12/14/16 00:25 Neutrophils # 37.6 K/mcL (1.6-8.9) H 12/14/16 11:20 Monocytes # 1.6 K/mcL (0.0-1.3) H 12/14/16 11:20 Basophils # 0.3 K/mcL (0.0-0.2) H 12/14/16 00:25 Nucleated RBCs/100 WBC 0.1 /100 WBC (0) H 12/14/16 00:25 Reactive Lymphocytes Present (Not Present) A 12/13/16 15:41 Clumped Platelets Few (Not Present) A 12/14/16 00:25 Polychromasia 1+ (Not Present) A 12/13/16 15:41 ABG pH 7.28 pH Units (7.32-7.45) L 12/14/16 09:16 ABG HCO3 17.4 mEQ/L (21-27) L 12/14/16 09:16 ABG Total CO2 18.5 mEq/L (20-26) L 12/14/16 09:16 ABG Base Excess -8.6 mEq/L (-2.0 to 3.0) L 12/14/16 09:16 Chloride 117 mEq/L (98-109) H 12/14/16 11:20 Carbon Dioxide 18 mEq/L (19-29) L 12/14/16 11:20 Est GFR (Non-Af Amer) 56 (> 60) L 12/14/16 11:20 Glucose 157 mg/dL (70-99) H 12/14/16 11:20 POC Glucose 97 (58-89) H 12/14/16 00:26 Calculated Osmolality 304 (280-300) H 12/14/16 11:20 Calcium 8.3 mg/dL (8.6-10.8) L 12/14/16 11:20 Magnesium 2.8 mg/dL (1.6-2.6) H 12/14/16 11:20 AST 167 Units/L (5-34) H 12/14/16 05:44 ALT 60 Units/L (0-55) H 12/14/16 05:44 Troponin I 1.06 ng/mL (0-0.03) H* 12/14/16 05:44 B-Natriuretic Peptide 150 pg/mL (0-100) H 12/13/16 16:45 Serum Total Protein 5.5 g/dL (6.0-8.3) L 12/14/16 05:44 Albumin 2.3 g/dL (3.5-5.0) L 12/14/16 05:44 Albumin/Globulin Ratio 0.7 (1.1-2.2) L 12/14/16 05:44 Urine Color [place] (Yellow) A 12/13/16 15:06 Urine Clarity Turbid (Clear) A 12/13/16 15:06 Urine Protein 100 mg/dL (Neg-Trace) H 12/13/16 15:06 Urine Ketones 15 mg/dL (Negative) H 12/13/16 15:06 Urine Blood Large (Negative) H 12/13/16 15:06 Urine Bilirubin Moderate (Negative) H 12/13/16 15:06 Ur Leukocyte Esterase Large (Negative) H 12/13/16 15:06 Urine Microscopic RBC 50-100 per hpf (0-3) H 12/13/16 15:06 Urine Microscopic WBC 30-50 per hpf (0-3) H 12/13/16 15:06 Urine Bacteria Many per hpf (None-Few) H 12/13/16 15:06 Ur Culture Indicated? YES (NO) A 12/13/16 15:06 Stl Norovirus GI/GII PCR DETECTED (Not detect) A 12/13/16 21:44 Urine Opiates Screen Positive ng/mL (Truiyd=021) H 12/13/16 18:20 Acetaminophen < 1.0 mcg/mL (10-30) L 12/13/16 19:30 U Benzodiazepines Scrn Positive ng/mL (Oedmkh=123) H 12/13/16 18:20 U Marijuana (THC) Screen Positive ng/mL (Cutoff = 50) H 12/13/16 18:20 Staphylococcus sp PCR DETECTED (Not Detect) A 12/13/16 15:41 mecA-Methicil Res Gene DETECTED (Not Detect) A 12/13/16 15:41 - Microbiology Findings Microbiology Findings: Microbiology, Last 48 Hours 12/14/16 09:05 Legionella Antigen - Final Urine,[place] Streptococcus pneumoniae Antigen (M - Final 12/14/16 04:45 Sputum Culture - Preliminary Sputum - Clinical Findings Intake & Output: Intake & Output 12/14/16 12/14/16 12/14/16 07:59 15:59 23:59 Intake Total 3463 / 3463 1597 / 1597 Output Total 850 / 850 1100 / 1100 Balance 2613 / 2613 497 / 497 - Attending Attestation I examined this patient and my medical decision-making was reviewed with the [employer] SAFETY INSPECTOR/PA/Advanced Practice Nurse/Resident Physician. I agree with the documented findings, disposition and treatment plan as described except to the extent set forth below. Patient seen and examined. Labs, radiology, chart personally reviewed. Agree with resident's history and physical, assessment, plan with following comments: COMMISSIONING AGENT: Patient sedated for the hypothermia protocol. Patient is not responding to stimuli, prognosis could be unavorable and concern about hypoxic brain injury. Pulmonary: Acceptable oxygenation and ventilation. Continue vent support and admitted Symbicort to the current inhalers. Cardiovascular: Vasopressors to support blood pressure. EKG reviewed with the shelter director and echocardiogram reviewed with the shelter director. Concerned about endocarditis, if blood culture remained positive will plan for PATTIE. GI: Nutrition per dietary and GI prophylaxis per routine Heme: DVT prophylaxis per routine. Patient has history of brain tumor. ID: Continue antibiotics and plan to de-escalation Renal; urine out put and renal funtion reviewed Endorcine: blood glucose is monitored Lines: all lines checked and no evidence of infections Skin: skin care to prevent pressure ulcers per nursing routine care Continue targeted Temperature therapy post cardiac arrest resuscitation and monitor electrolytes and heart rate. I am hoping prognosis will improve with this intervention. I spent 40 min of Critical Care time with this patient. It involved decision making of high complexity to assess, manipulate, and support vital organ system failure and/or to prevent further life threatening deterioration of the patient' s condition. The time involved in the performance of separately reportable procedures was not counted toward critical care time.
[2016-12-14] MEDS: *HR* Heparin 5,000 UNIT/ML VIAL SQ SCH ×3 (09:52→22:13)
[2016-12-14] MEDS: Cefepime HCl 2,000 MG in D5% in Water (Mini-Bag+) 100 ML IVPB SCH ×2 (09:52→20:16)
[2016-12-14] MEDS: Vancomycin 1,000 MG in D5% in Water 250 ML IVPB SCH ×2 (09:53→22:12)
[2016-12-14] MEDS: Budesonide/Formoterol 160/4.5 MDI IH SCH ×2 (11:27→21:30)
[2016-12-14 11:49] LABS: Hematocrit 44.5 % (35.3-44.9); Hemoglobin 14.1 g/dL (11.5-15.4); Mean Corpuscular HGB Conc 31.7 g/dL (31.6-35.5); Mean Corpuscular Hemoglobin 31.6 pg (28.0-33.3); Mean Corpuscular Volume 99.8 fL (83.0-100.0); Mean Platelet Volume 10.2 fL (9.4-12.4); Platelet Count 264 K/mcL (140-400); Red Blood Count 4.46 M/mcL (3.82-4.97); Red Cell Distribution Width 15.9 % (11.5-14.5)
[2016-12-14 12:05] LABS: BUN/Creatinine Ratio 18 (6-26); Blood Urea Nitrogen 20 mg/dL (7-20); Calcium 8.3 mg/dL (8.6-10.8); Carbon Dioxide 18 mEq/L (19-29); Chloride 117 mEq/L (98-109); Glucose 157 mg/dL (70-99); Magnesium 2.8 mg/dL (1.6-2.6); Osmolality,Calculated 304 (280-300); Phosphorous 4.2 mg/dL (2.3-4.7); Potassium 4.5 mEq/L (3.5-4.5); Sodium 144 mEq/L (136-145); eGFR For African Americans > 60 (> 60); eGFR For Non-African Americans 56 (> 60)
[2016-12-14 12:18] LABS: Lymphocytes # 1.2 K/mcL (0.6-4.6); Monocytes # 1.6 K/mcL (0.0-1.3); Neutrophils # 37.6 K/mcL (1.6-8.9); Platelet Estimate Normal (Normal)
[2016-12-14] MEDS: Insulin LISPRO 300 UNITS/3 ML VIAL SQ SCH ×2 (13:03→19:19)
[2016-12-14 16:29] LABS: Acinetobacter baumannii by PCR Not Detected (Not Detect); Candida albicans by PCR Not Detected (Not Detect); Candida glabrata by PCR Not Detected (Not Detect); Candida krusei by PCR Not Detected (Not Detect); Candida parapsilosis by PCR Not Detected (Not Detect); Candida tropicalis by PCR Not Detected (Not Detect); Enterococcus by PCR Not Detected (Not Detect); Escherichia coli by PCR Not Detected (Not Detect); Klebsiella oxytoca by PCR Not Detected (Not Detect); Klebsiella pneumoniae by PCR Not Detected (Not Detect); Pseudomonas aeruginosa by PCR Not Detected (Not Detect); Serratia marcescens by PCR Not Detected (Not Detect); Staphylococcus aureus by PCR Not Detected (Not Detect); Streptococcus agalactiae(B)PCR Not Detected (Not Detect); Streptococcus by PCR Not Detected (Not Detect); Streptococcus pneumoniae PCR Not Detected (Not Detect); Streptococcus pyogenes (A) PCR Not Detected (Not Detect); blaKPC Carbapenem-Resist Gene Not Detected (Not Detect); mecA Methicillin-Resist Gene ***DETECTED*** (Not Detect); vanA/B Vancomycin-Resist Genes Not Detected (Not Detect)
[2016-12-14 18:02] LABS: Monocytes % 1.4 %; Red Cell Distribution Width 15.5 % (11.5-14.5)
[2016-12-14 18:03] LABS: Basophils # 0.1 K/mcL (0.0-0.2); Basophils % 0.3 %; Hematocrit 39.2 % (35.3-44.9); Hemoglobin 12.8 g/dL (11.5-15.4); Immature Granulocytes % 0.9 % (0-4); Lymphocytes # 0.6 K/mcL (0.6-4.6); Lymphocytes % 1.5 %; Mean Corpuscular HGB Conc 32.7 g/dL (31.6-35.5); Mean Corpuscular Hemoglobin 31.7 pg (28.0-33.3); Mean Platelet Volume 9.9 fL (9.4-12.4); Platelet Count 229 K/mcL (140-400); Red Blood Count 4.04 M/mcL (3.82-4.97); Segmented Neutrophils % 95.9 %
[2016-12-14 18:14] LABS: Monocytes # 0.5 K/mcL (0.0-1.3); Neutrophils # 36.6 K/mcL (1.6-8.9)
[2016-12-14 18:15] LABS: BUN/Creatinine Ratio 21 (6-26); Blood Urea Nitrogen 18 mg/dL (7-20); Calcium 8.5 mg/dL (8.6-10.8); Carbon Dioxide 18 mEq/L (19-29); Chloride 118 mEq/L (98-109); Glucose 142 mg/dL (70-99); Magnesium 2.1 mg/dL (1.6-2.6); Osmolality,Calculated 300 (280-300); Phosphorous 3.6 mg/dL (2.3-4.7); Potassium 3.8 mEq/L (3.5-4.5); Sodium 143 mEq/L (136-145); eGFR For African Americans > 60 (> 60); eGFR For Non-African Americans > 60 (> 60)
--- NOTE | 2016-12-14 18:48 | Electrocardiograph Report ---
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
[2016-12-14] MEDS: FentaNYL (PF) 3,000 MCG in 0.9 % Sodium Chloride 240 ML IVC SCH (23:31)
[2016-12-14 23:48] LABS: Hematocrit 38.2 % (35.3-44.9); Hemoglobin 12.4 g/dL (11.5-15.4); Mean Corpuscular HGB Conc 32.5 g/dL (31.6-35.5); Mean Corpuscular Volume 98.7 fL (83.0-100.0); Mean Platelet Volume 9.9 fL (9.4-12.4); Platelet Count 207 K/mcL (140-400); Red Blood Count 3.87 M/mcL (3.82-4.97); Red Cell Distribution Width 15.6 % (11.5-14.5)
[2016-12-15] LABS: BUN/Creatinine Ratio 20 (6-26); Blood Urea Nitrogen 16 mg/dL (7-20); Calcium 8.6 mg/dL (8.6-10.8); Carbon Dioxide 17 mEq/L (19-29); Chloride 116 mEq/L (98-109); Glucose 195 mg/dL (70-99); Magnesium 2.1 mg/dL (1.6-2.6); Osmolality,Calculated 301 (280-300); Phosphorous 3.7 mg/dL (2.3-4.7); Potassium 3.5 mEq/L (3.5-4.5); Sodium 142 mEq/L (136-145); eGFR For African Americans > 60 (> 60); eGFR For Non-African Americans > 60 (> 60)
[2016-12-15 00:06] LABS: Lymphocytes # 1.6 K/mcL (0.6-4.6); Monocytes # 0.8 K/mcL (0.0-1.3); Neutrophils # 36.8 K/mcL (1.6-8.9); Platelet Estimate Normal (Normal)
[2016-12-15] MEDS: *HR* Vecuronium 10 MG VIAL IVP PRN (00:15)
[2016-12-15] MEDS: Insulin LISPRO 300 UNITS/3 ML VIAL SQ SCH ×4 (00:20→18:31)
[2016-12-15] MEDS: Potassium Chloride 40 MEQ/200 ML BAG IVPB PRN (01:11)
[2016-12-15] MEDS: Ipratropium/Albuterol Neb 3 ML IH SCH ×4 (03:40→21:44)
[2016-12-15] MEDS: Lacri-Lube 3.5 GM TUBE BOTH EYES SCH ×6 (04:18→23:49)
[2016-12-15] MEDS: Ringers Solution, Lactated 1,000 ML IVC SCH ×3 (04:19→18:24)
[2016-12-15] MEDS: methylPREDNISolone 125 MG/2 ML VIAL IVP SCH ×4 (05:05→23:46)
[2016-12-15] MEDS: *HR* Heparin 5,000 UNIT/ML VIAL SQ SCH ×3 (05:06→23:45)
[2016-12-15 05:14] LABS: ABG Base Excess -6.7 mEq/L (-2.0 to 3.0); ABG HCO3 19.2 mEQ/L (21-27); ABG Oxygen Saturation 99 % (95-98); ABG PCO2 39 mmHg (35-45); ABG PO2 157 mmHg (85-104); ABG TCO2 20.4 mEq/L (20-26)
[2016-12-15 05:19] LABS: Hematocrit 36.4 % (35.3-44.9); Hemoglobin 11.8 g/dL (11.5-15.4); Mean Corpuscular HGB Conc 32.4 g/dL (31.6-35.5); Mean Corpuscular Hemoglobin 31.4 pg (28.0-33.3); Mean Corpuscular Volume 96.8 fL (83.0-100.0); Mean Platelet Volume 9.6 fL (9.4-12.4); Platelet Count 214 K/mcL (140-400); Red Blood Count 3.76 M/mcL (3.82-4.97); Red Cell Distribution Width 15.4 % (11.5-14.5)
[2016-12-15 05:20] LABS: Blood Gas FiO2 60 %
[2016-12-15 05:24] LABS: Ionized Calcium 1.31 mmol/L (1.15-1.35)
[2016-12-15 05:29] LABS: BUN/Creatinine Ratio 21 (6-26); Blood Urea Nitrogen 15 mg/dL (7-20); Calcium 8.8 mg/dL (8.6-10.8); Carbon Dioxide 17 mEq/L (19-29); Chloride 118 mEq/L (98-109); Glucose 127 mg/dL (70-99); Magnesium 1.8 mg/dL (1.6-2.6); Osmolality,Calculated 300 (280-300); Phosphorous 3.2 mg/dL (2.3-4.7); Sodium 144 mEq/L (136-145); eGFR For African Americans > 60 (> 60); eGFR For Non-African Americans > 60 (> 60)
[2016-12-15 05:32] LABS: INR 1.4; Prothrombin Time 14.9 Seconds (9.4-12.1)
[2016-12-15 06:14] LABS: Lymphocytes # 0.8 K/mcL (0.6-4.6); Monocytes # 0.8 K/mcL (0.0-1.3); Neutrophils # 39.3 K/mcL (1.6-8.9); Platelet Estimate Normal (Normal)
[2016-12-15] MEDS: Magnesium Sulfate 2 GM in D5% in Water 100 ML IVPB PRN (06:17)
--- NOTE | 2016-12-15 08:17 | Pulmonology Progress Note ---
<Becca Lott - Last Filed: 12/15/16 10:48> Date of Encounter: 12/15/16 Time of Encounter: 08:08 Assessment and Plan (1) Sepsis Current Visit: Yes Status: Acute Patient met sepsis criteria on admission due to tachycardia, hypotension, tachypnea, and elevated WBC. Possible causes of sepsis include aspiration pneumonia, and possibly a UTI. Lactic acid has been within normal limits - 1.8 this morning. WBC trending up 18 > 27 > 31 > 40. Urine culture is growing gram negative rods. Sputum culture is growing gram negative rods. And peripheral venipuncture is growing gram positive cocci. Patient was initially given clindamycin, levaquin, zosyn. She is now on vancomycin and cefepime. ( Antibiotics day 3). As patient continues to have persistent leukocytosis, will add a third antibiotic. - Continue cefepime and vancomycin - Add aztreonam - 2g every 8 hours. - Follow vitals and labs (WBC and lactic acid) - Follow cultures Qualifiers: Sepsis type: sepsis due to unspecified organism Qualified Code(s): A41.9 - Sepsis, unspecified organism (2) Acute on chronic respiratory failure Current Visit: No Status: Resolved Patient intubated in the ED for acute respiratory failure believed secondary to aspiration pneumonia though could have other causes. Patient does have underlying COPD. She remains intubated and sedated. Vent settings: RR16, TV550, 60% FiO2, PEEP 5.0. CXR shows bilateral aspiration pneumonia with underlying chronic changes. Currently on vancomycine and cefepime (antibiotics day 2). Adding azetronam today. Prelimb sputum culture is gram negative rods. Patient is now off of the hypothermia protocol, will wean sedation and do a spontaneous breathing trial. - Continue with ventilator support - will wean as tolerated - Continue antibiotics - Treatment for COPD - steroids and bronchodilators Qualifiers: Respiratory failure complication: unspecified whether with hypoxia or hypercapnia Qualified Code(s): J96.20 - Acute and chronic respiratory failure , unspecified whether with hypoxia or hypercapnia (3) Acute renal failure Current Visit: Yes Status: Acute Patient with acute renal failure that is improving. Creatinine improving 1.9 > 1.43 > 0.71. - Continue to monitor kidney function - Fluids - lactated ringer at 125 mls/hr - Avoid nephrotoxic medications as possible Qualifiers: Acute renal failure type: unspecified Qualified Code(s): N17.9 - Acute kidney failure, unspecified (4) Altered level of consciousness Current Visit: Yes Status: Acute Patient was found unresponsive by daughter. Unknown time of unresponsiveness. Cause of altered level of consciousness is unknown though drug use and aspiration are possible causes. UDS positive for opiates, benzos, and marijuana. Head CT negative for acute abnormality. Concern for possible anoxic brain injury. She has bilateral + Babinski reflex, no corneal reflex however dose have a blink reflex. - Stop sedation today. We will see how patient does and if she starts to wake up - With sedation off, will try a spontaneous breathing trial (5) Aspiration pneumonia Current Visit: No Status: Acute Patient with aspiration pneumonia. CXR shows BL pneumonia with underlying chronic changes. 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 Currently patient is intubated and sedated. She is on vancomycin and cefepime. Due to persistent leukocytosis, will add aztreonam. Prelimb sputum culture shows gram negative rods. - Continue vancomycin and cefepime (Antibiotics day 2). - Start aztreonam - Will wean ventilatory support as tolerated. - Follow microbiology and sensitivities Qualifiers: Aspiration pneumonia type: unspecified Laterality: bilateral Lung location: unspecified part of lung Qualified Code(s): J69.0 - Pneumonitis due to inhalation of food and vomit (6) Cardiac arrest Current Visit: Yes Status: Acute Patient is s/p cardiac arrest in the ED yesterday. She completed hypothermic protocol at 2am this morning and is currently rewarming. Bradycardia and hypotension improving with re-warming. She is currently off of the levophed with MAP around 70. Troponin decreasing 2.98 > 1.06. ECHO shows normal LVEF 60-65% with no dysfunction. - Continue cardiac monitoring - Vasopressor support as needed. (7) Hypotension Current Visit: Yes Status: Acute Patient with hypotension initially requiring levophed - this is improving. Likely secondary to sedation and hypothermia protocol. Improving now that the hypothermia protocol is complete. She is currently not requiring vasopressor support with MAP around 70. - Continue to monitor blood pressure - Vasopressors if needed to maintain MAP >65. Qualifiers: Hypotension type: unspecified hypotension type Qualified Code(s): I95.9 - Hypotension, unspecified (8) COPD (chronic obstructive pulmonary disease) Current Visit: Yes Status: Acute Patient with history of COPD on home O2 of 4L. This is likely contributing to patients acute respiratory failure. On bronchodilators and steroids - Continue Solu-medrol 60mg Q6H - Symbicort and schedule duoneb - Antibiotics to treat aspiration pneumonia - Wean ventilatory support as tolerated. Qualifiers: COPD type: unspecified COPD Qualified Code(s): J44.9 - Chronic obstructive pulmonary disease, unspecified (9) Norovirus Current Visit: Yes Status: Acute Patient with profuse diarrhea. GI panel found to be Norovirus +. 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 Per oncology notes, tumor is stable. Patient follows with Dr. Allison outpatient. Per notes, patient has dysphagia and right sided weakness secondary to this glioma. (11) Chronic use of steroids Current Visit: Yes Status: Acute Patient is on daily dextromethasone 4mg PO BID to help decrease swelling associated with her glioma. 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 Currently on solu-medrol 60mg Q6H. When time to wean, she will need to wean back to her home dose of dextramethasone. (12) DVT prophylaxis Current Visit: No Status: Acute Heparin for DVT prophylaxis Neuro: Found unresponsive/AMS cause unknown - concern for drug overdose or aspiration pneumonia. UDS + opiates, benzos and marijuana. Head CT negative. Concern for possible anoxic injury. Stop sedation and see how patient wakes up. Pulm: Acute respiratory failure likely secondary to BL aspiration pneumonia and COPD. Sputum culture growing gram neg rods. Currently intubated - vent RR16, TV550, 60% FiO2, PEEP of 5. On antibiotics, bronchodilators and steroids. Wean vent settings as tolerated. Cardiac: s/p cardiac arrest, hypothermia protocol complete. Hypotension and bradycardic improved with rewarming. Trop down trending 2.98 > 1.06. ECHO with EF of 65%, no dysfunction. GI: Non-anion gap metabolic acidosis secondary to diarrhea from norovirus. Monitor electrolytes, on protocol. Continue LR @ 125mls/hr. Starting tube feeds today. Renal: SIENA - improving. Urine culture growing gram neg rods, on antibiotics. ID: Sepsis possibly secondary to pneumonia and possible UTI. Blood growing gram positive cocci, PCR suggestive of MRSA. Sputum and urine both growing gram neg rods. Monitor vitals and labs. Continue vancomycin and cefepime. Due to persistent leukcytosis, will start aztreonam. Repeat blood cultures today (48hrs from initial) Heme: heparin for DVT ppx Endo: Q6 accuchecks, SSI and hypoglycemic protocol. Likely secondary adrenal suppression - will need to be taper to home dose. Code: Full Lines: R fem CVC, hernandez, ET, OG, rectal Subjective Principal diagnosis: Acute respiratory failure, found unresponsive Interval history: Ms Neel Perez is a 36yo F who was found unresponsive. Intubated in the ED for acute respiratory failure. S/p cardiac arrest requiring cardioversion x3, 1.5mg epinephrine, and amiodarone. No acute events overnight. Hypothermia protocol completed at 2am and rewarming started. Starting to decrease sedation. Bradycardia and hypotension improved with rewarming. Patient seen and examined this morning. She remains intubated and sedated. She does not respond to voice or follow commands. No corneal reflex, however blink reflex intact. Skin on her chin is red and blistered. Lungs a little diminished bilaterally, no rhonchi or wheezing. Abdomen soft, non-tender. + Babinski reflex - toes fan outward bilaterally. Palpable pedal pulses bilaterally. Good capillary refill. Objective PUL Vital signs: Last Vital Signs Temp 97.8 F 12/15/16 05:35 Pulse 84 12/15/16 08:01 Resp 16 12/15/16 07:47 BP 99/67 12/15/16 07:31 Pulse Ox 98 12/15/16 07:47 General appearance: no acute distress, other (Intubated and sedated) Eyes: nonicteric ENT: oropharynx moist Effort: normal Auscultation: bilateral: diminished breath sounds Cardiovascular: regular rate and rhythm Gastrointestinal: soft, non-tender, non-distended Integumentary: other (Skin on chin is red and irritated) Extremities: no cyanosis, no edema, no clubbing Musculoskeletal: no deformities pupils equal and round, unable to assess due to mental status, other (Babinski + bilaterally, corneal reflex absent however blink reflex intact) Ventilator Settings Ventilator Settings: Ventilator Settings, Last 8 Hours Ventilator Mode VC+ Ventilator Mode VC+ Ventilator Mode VC+ Ventilator Mode VC+ Ventilator Mode VC+ Ventilator Mode VC+ Ventilator Mode VC+ Ventilator Mode VC+ Ventilator Mode VC+ Ventilator Mode VC+ Ventilator Mode VC+ Ventilator Mode VC+ Ventilator Mode VC+ Ventilator Mode VC+ Ventilator Tidal Volume 550 Setting Ventilator Tidal Volume 550 Setting Ventilator Tidal Volume 550 Setting Ventilator Tidal Volume 550 Setting Ventilator Tidal Volume 550 Setting Ventilator Tidal Volume 550 Setting Ventilator Tidal Volume 550 Setting Ventilator Tidal Volume 550 Setting Ventilator Tidal Volume 550 Setting Ventilator Tidal Volume 550 Setting Ventilator Tidal Volume 550 Setting Ventilator Tidal Volume 550 Setting Ventilator Tidal Volume 550 Setting Ventilator Tidal Volume 550 Setting Ventilator Respiratory Rate 16 Setting Ventilator Respiratory Rate 16 Setting Ventilator Respiratory Rate 16 Setting Ventilator Respiratory Rate 16 Setting Ventilator Respiratory Rate 16 Setting Ventilator Respiratory Rate 16 Setting Ventilator Respiratory Rate 16 Setting Ventilator Respiratory Rate 16 Setting Ventilator Respiratory Rate 16 Setting Ventilator Respiratory Rate 16 Setting Ventilator Respiratory Rate 16 Setting Ventilator Respiratory Rate 16 Setting Ventilator Respiratory Rate 16 Setting Ventilator Respiratory Rate 16 Setting Actual Respiratory Rate 16 Actual Respiratory Rate 16 Actual Respiratory Rate 16 Actual Respiratory Rate 16 Actual Respiratory Rate 16 Actual Respiratory Rate 16 Actual Respiratory Rate 16 Actual Respiratory Rate 16 Actual Respiratory Rate 16 Actual Respiratory Rate 16 Actual Respiratory Rate 16 Actual Respiratory Rate 16 Actual Respiratory Rate 24 Positive End Expiratory 5 Pressure Positive End Expiratory 5 Pressure Positive End Expiratory 5 Pressure Positive End Expiratory 5 Pressure Positive End Expiratory 5 Pressure Positive End Expiratory 5 Pressure Positive End Expiratory 5 Pressure Positive End Expiratory 5 Pressure Positive End Expiratory 5 Pressure Positive End Expiratory 5 Pressure Positive End Expiratory 5 Pressure Positive End Expiratory 5 Pressure Positive End Expiratory 5 Pressure Positive End Expiratory 5 Pressure Peak Inspiratory Airway 30 Pressure Peak Inspiratory Airway 30 Pressure Peak Inspiratory Airway 29 Pressure Peak Inspiratory Airway 28 Pressure Peak Inspiratory Airway 28 Pressure Peak Inspiratory Airway 29 Pressure Peak Inspiratory Airway 31 Pressure Peak Inspiratory Airway 30 Pressure Peak Inspiratory Airway 31 Pressure Peak Inspiratory Airway 30 Pressure Peak Inspiratory Airway 30 Pressure Peak Inspiratory Airway 30 Pressure Peak Inspiratory Airway 30 Pressure Results - Laboratory Findings CBC and BMP: 12/15/16 05:10 12/15/16 05:10 ABG ABG pH 7.30 pH Units (7.32-7.45) L 12/15/16 05:05 ABG pCO2 39 mmHg (35-45) 12/15/16 05:05 ABG pO2 157 mmHg (85-104) H 12/15/16 05:05 ABG O2 Saturation 99 % (95-98) H 12/15/16 05:05 PT/INR, D-dimer PT 14.9 Seconds (9.4-12.1) H 12/15/16 05:10 Abnormal lab findings: Abnormal lab results WBC 40.9 K/mcL (4.3-11.1) H* 12/15/16 05:10 RBC 3.76 M/mcL (3.82-4.97) L 12/15/16 05:10 RDW 15.4 % (11.5-14.5) H 12/15/16 05:10 Band Neutrophils % 17.0 % (0-4) H 12/15/16 05:10 Metamyelocytes % 4.0 % (0) H 12/14/16 23:35 Promyelocytes % 1.0 % (0) H 12/14/16 00:25 Neutrophils # 39.3 K/mcL (1.6-8.9) H 12/15/16 05:10 Nucleated RBCs/100 WBC 0.1 /100 WBC (0) H 12/14/16 00:25 Reactive Lymphocytes Present (Not Present) A 12/13/16 15:41 Clumped Platelets Few (Not Present) A 12/14/16 00:25 Polychromasia 1+ (Not Present) A 12/13/16 15:41 PT 14.9 Seconds (9.4-12.1) H 12/15/16 05:10 ABG pH 7.30 pH Units (7.32-7.45) L 12/15/16 05:05 ABG pO2 157 mmHg (85-104) H 12/15/16 05:05 ABG HCO3 19.2 mEQ/L (21-27) L 12/15/16 05:05 ABG O2 Saturation 99 % (95-98) H 12/15/16 05:05 ABG Base Excess -6.7 mEq/L (-2.0 to 3.0) L 12/15/16 05:05 Chloride 118 mEq/L (98-109) H 12/15/16 05:10 Carbon Dioxide 17 mEq/L (19-29) L 12/15/16 05:10 Glucose 127 mg/dL (70-99) H 12/15/16 05:10 POC Glucose 104 (58-89) H 12/14/16 18:37 AST 167 Units/L (5-34) H 12/14/16 05:44 ALT 60 Units/L (0-55) H 12/14/16 05:44 Troponin I 1.06 ng/mL (0-0.03) H* 12/14/16 05:44 B-Natriuretic Peptide 150 pg/mL (0-100) H 12/13/16 16:45 Serum Total Protein 5.5 g/dL (6.0-8.3) L 12/14/16 05:44 Albumin 2.3 g/dL (3.5-5.0) L 12/14/16 05:44 Albumin/Globulin Ratio 0.7 (1.1-2.2) L 12/14/16 05:44 Urine Color [place] (Yellow) A 12/13/16 15:06 Urine Clarity Turbid (Clear) A 12/13/16 15:06 Urine Protein 100 mg/dL (Neg-Trace) H 12/13/16 15:06 Urine Ketones 15 mg/dL (Negative) H 12/13/16 15:06 Urine Blood Large (Negative) H 12/13/16 15:06 Urine Bilirubin Moderate (Negative) H 12/13/16 15:06 Ur Leukocyte Esterase Large (Negative) H 12/13/16 15:06 Urine Microscopic RBC 50-100 per hpf (0-3) H 12/13/16 15:06 Urine Microscopic WBC 30-50 per hpf (0-3) H 12/13/16 15:06 Urine Bacteria Many per hpf (None-Few) H 12/13/16 15:06 Ur Culture Indicated? YES (NO) A 12/13/16 15:06 Stl Norovirus GI/GII PCR DETECTED (Not detect) A 12/13/16 21:44 Urine Opiates Screen Positive ng/mL (Cmsxlg=448) H 12/13/16 18:20 Acetaminophen < 1.0 mcg/mL (10-30) L 12/13/16 19:30 U Benzodiazepines Scrn Positive ng/mL (Iewbki=478) H 12/13/16 18:20 U Marijuana (THC) Screen Positive ng/mL (Cutoff = 50) H 12/13/16 18:20 Staphylococcus sp PCR DETECTED (Not Detect) A 12/13/16 15:41 mecA-Methicil Res Gene DETECTED (Not Detect) A 12/13/16 15:41 - Microbiology Findings Microbiology Findings: Microbiology, Last 48 Hours 12/14/16 04:45 Sputum Culture - Preliminary Sputum Gram Negative Jorge 12/14/16 09:05 Legionella Antigen - Final Urine,[place] Streptococcus pneumoniae Antigen (M - Final - Clinical Findings Intake & Output: Intake & Output 12/14/16 12/15/16 12/15/16 23:59 07:59 15:59 Intake Total 1930 / 1930 1755 / 1755 Output Total 1875 / 1875 550 / 550 Balance 55 / 55 1205 / 1205 Weight 70 kg Consult Discharge Plan - Plan Referrals: NO,PCP [Primary Care Provider] - <Cheryl Garcia M - Last Filed: 12/15/16 12:08> Date of Encounter: 12/15/16 Objective PUL Vital signs: Last Vital Signs Temp 97.5 F L 12/15/16 11:00 Pulse 80 12/15/16 11:00 Resp 12 12/15/16 11:00 BP 108/75 12/15/16 11:00 Pulse Ox 96 12/15/16 11:00 Ventilator Settings Ventilator Settings: Ventilator Settings, Last 8 Hours Ventilator Mode CPAP Ventilator Mode CPAP Ventilator Mode VC+ Ventilator Mode VC+ Ventilator Mode VC+ Ventilator Mode VC+ Ventilator Mode VC+ Ventilator Mode VC+ Ventilator Mode VC+ Ventilator Mode VC+ Ventilator Tidal Volume 550 Setting Ventilator Tidal Volume 550 Setting Ventilator Tidal Volume 550 Setting Ventilator Tidal Volume 550 Setting Ventilator Tidal Volume 550 Setting Ventilator Tidal Volume 550 Setting Ventilator Tidal Volume 550 Setting Ventilator Tidal Volume 550 Setting Ventilator Tidal Volume 550 Setting Ventilator Tidal Volume 550 Setting Ventilator Respiratory Rate 16 Setting Ventilator Respiratory Rate 16 Setting Ventilator Respiratory Rate 16 Setting Ventilator Respiratory Rate 16 Setting Ventilator Respiratory Rate 16 Setting Ventilator Respiratory Rate 16 Setting Ventilator Respiratory Rate 16 Setting Ventilator Respiratory Rate 16 Setting Actual Respiratory Rate 11 Actual Respiratory Rate 11 Actual Respiratory Rate 16 Actual Respiratory Rate 16 Actual Respiratory Rate 16 Actual Respiratory Rate 16 Actual Respiratory Rate 16 Actual Respiratory Rate 16 Actual Respiratory Rate 16 Positive End Expiratory 5 Pressure Positive End Expiratory 5 Pressure Positive End Expiratory 5 Pressure Positive End Expiratory 5 Pressure Positive End Expiratory 5 Pressure Positive End Expiratory 5 Pressure Positive End Expiratory 5 Pressure Positive End Expiratory 5 Pressure Positive End Expiratory 5 Pressure Positive End Expiratory 5 Pressure Peak Inspiratory Airway 22 Pressure Peak Inspiratory Airway 22 Pressure Peak Inspiratory Airway 30 Pressure Peak Inspiratory Airway 30 Pressure Peak Inspiratory Airway 29 Pressure Peak Inspiratory Airway 28 Pressure Peak Inspiratory Airway 28 Pressure Peak Inspiratory Airway 29 Pressure Peak Inspiratory Airway 31 Pressure Results - Laboratory Findings CBC and BMP: 12/15/16 05:10 12/15/16 05:10 ABG ABG pH 7.30 pH Units (7.32-7.45) L 12/15/16 05:05 ABG pCO2 39 mmHg (35-45) 12/15/16 05:05 ABG pO2 157 mmHg (85-104) H 12/15/16 05:05 ABG O2 Saturation 99 % (95-98) H 12/15/16 05:05 PT/INR, D-dimer PT 14.9 Seconds (9.4-12.1) H 12/15/16 05:10 Abnormal lab findings: Abnormal lab results WBC 40.9 K/mcL (4.3-11.1) H* 12/15/16 05:10 RBC 3.76 M/mcL (3.82-4.97) L 12/15/16 05:10 RDW 15.4 % (11.5-14.5) H 12/15/16 05:10 Band Neutrophils % 17.0 % (0-4) H 12/15/16 05:10 Metamyelocytes % 4.0 % (0) H 12/14/16 23:35 Promyelocytes % 1.0 % (0) H 12/14/16 00:25 Neutrophils # 39.3 K/mcL (1.6-8.9) H 12/15/16 05:10 Nucleated RBCs/100 WBC 0.1 /100 WBC (0) H 12/14/16 00:25 Reactive Lymphocytes Present (Not Present) A 12/13/16 15:41 Clumped Platelets Few (Not Present) A 12/14/16 00:25 Polychromasia 1+ (Not Present) A 12/13/16 15:41 PT 14.9 Seconds (9.4-12.1) H 12/15/16 05:10 ABG pH 7.30 pH Units (7.32-7.45) L 12/15/16 05:05 ABG pO2 157 mmHg (85-104) H 12/15/16 05:05 ABG HCO3 19.2 mEQ/L (21-27) L 12/15/16 05:05 ABG O2 Saturation 99 % (95-98) H 12/15/16 05:05 ABG Base Excess -6.7 mEq/L (-2.0 to 3.0) L 12/15/16 05:05 Chloride 118 mEq/L (98-109) H 12/15/16 05:10 Carbon Dioxide 17 mEq/L (19-29) L 12/15/16 05:10 Glucose 127 mg/dL (70-99) H 12/15/16 05:10 POC Glucose 104 (58-89) H 12/14/16 18:37 AST 167 Units/L (5-34) H 12/14/16 05:44 ALT 60 Units/L (0-55) H 12/14/16 05:44 Troponin I 1.06 ng/mL (0-0.03) H* 12/14/16 05:44 B-Natriuretic Peptide 150 pg/mL (0-100) H 12/13/16 16:45 Serum Total Protein 5.5 g/dL (6.0-8.3) L 12/14/16 05:44 Albumin 2.3 g/dL (3.5-5.0) L 12/14/16 05:44 Albumin/Globulin Ratio 0.7 (1.1-2.2) L 12/14/16 05:44 Urine Color [place] (Yellow) A 12/13/16 15:06 Urine Clarity Turbid (Clear) A 12/13/16 15:06 Urine Protein 100 mg/dL (Neg-Trace) H 12/13/16 15:06 Urine Ketones 15 mg/dL (Negative) H 12/13/16 15:06 Urine Blood Large (Negative) H 12/13/16 15:06 Urine Bilirubin Moderate (Negative) H 12/13/16 15:06 Ur Leukocyte Esterase Large (Negative) H 12/13/16 15:06 Urine Microscopic RBC 50-100 per hpf (0-3) H 12/13/16 15:06 Urine Microscopic WBC 30-50 per hpf (0-3) H 12/13/16 15:06 Urine Bacteria Many per hpf (None-Few) H 12/13/16 15:06 Ur Culture Indicated? YES (NO) A 12/13/16 15:06 Stl Norovirus GI/GII PCR DETECTED (Not detect) A 12/13/16 21:44 Vancomycin Trough 21.4 mcg/mL (10-20) H* 12/15/16 08:45 Urine Opiates Screen Positive ng/mL (Qmuitq=318) H 12/13/16 18:20 Acetaminophen < 1.0 mcg/mL (10-30) L 12/13/16 19:30 U Benzodiazepines Scrn Positive ng/mL (Gczszc=643) H 12/13/16 18:20 U Marijuana (THC) Screen Positive ng/mL (Cutoff = 50) H 12/13/16 18:20 Staphylococcus sp PCR DETECTED (Not Detect) A 12/13/16 15:41 mecA-Methicil Res Gene DETECTED (Not Detect) A 12/13/16 15:41 - Microbiology Findings Microbiology Findings: Microbiology, Last 48 Hours 12/14/16 04:45 Sputum Culture - Preliminary Sputum Gram Negative Jorge 12/14/16 09:05 Legionella Antigen - Final Urine,[place] Streptococcus pneumoniae Antigen (M - Final - Clinical Findings Intake & Output: Intake & Output 12/14/16 12/15/16 12/15/16 23:59 07:59 15:59 Intake Total 1930 / 1930 1755 / 1755 1324 / 1324 Output Total 1875 / 1875 550 / 550 300 / 300 Balance 55 / 55 1205 / 1205 1024 / 1024 Weight 70 kg - Attending Attestation I examined this patient and my medical decision-making was reviewed with the OPERA SINGER/PA/Advanced Practice Nurse/Resident Physician. I agree with the documented findings, disposition and treatment plan as described except to the extent set forth below. Patient seen and examined. Labs, radiology, chart personally reviewed. 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 Concern is anoxic brain injury. Pulmonary: Acceptable oxygenation and ventilation. Changed patient to spontaneous breathing trial, she is breathing over the ventilator, however there is no plan for extubation until she is fully recovered from a neurological standpoint. Cardiovascular: stable. Patient is off any pressors. GI: Nutrition per dietary and GI prophylaxis per routine Heme: DVT prophylaxis per routine ID: Continue antibiotics and plan to de-escalation Renal; urine out put and renal funtion reviewed Endorcine: blood glucose is monitored Lines: all lines checked and no evidence of infections Skin: skin care to prevent pressure ulcers per nursing routine care Suspect prognosis is poor if she continue to be unresponsive to commands. I spent 35 min of Critical Care time with this patient. It involved decision making of high complexity to assess, manipulate, and support vital organ system failure and/or to prevent further life threatening deterioration of the patient' s condition. The time involved in the performance of separately reportable procedures was not counted toward critical care time.
[2016-12-15] MEDS: Cefepime HCl 2,000 MG in D5% in Water (Mini-Bag+) 100 ML IVPB SCH ×2 (08:34→20:05)
[2016-12-15] MEDS: Pantoprazole 40 MG VIAL IVPB SCH (08:34)
[2016-12-15] MEDS: Chlorhexidine Rinse 15 ML MOUTHWASH MM SCH ×2 (08:34→20:05)
--- NOTE | 2016-12-15 10:10 | Electrocardiograph Report ---
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
[2016-12-15] MEDS: Budesonide/Formoterol 160/4.5 MDI IH SCH ×2 (10:16→21:47)
[2016-12-15] MEDS: Vancomycin 1,000 MG in D5% in Water 250 ML IVPB SCH (10:35)
[2016-12-15] MEDS: Vancomycin 750 MG in D5% in Water 250 ML IVPB SCH ×2 (11:07→23:46)
--- NOTE | 2016-12-15 13:08 | Electrocardiograph Report ---
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
[2016-12-15] MEDS: Aztreonam 2,000 MG in D5% in Water (Mini-Bag+) 100 ML IVPB SCH ×2 (15:59→23:47)
[2016-12-15 16:05] LABS: BUN/Creatinine Ratio 22 (6-26); Blood Urea Nitrogen 14 mg/dL (7-20); Calcium 8.7 mg/dL (8.6-10.8); Carbon Dioxide 18 mEq/L (19-29); Chloride 115 mEq/L (98-109); Glucose 115 mg/dL (70-99); Magnesium 2.1 mg/dL (1.6-2.6); Osmolality,Calculated 295 (280-300); Phosphorous 3.3 mg/dL (2.3-4.7); Potassium 3.8 mEq/L (3.5-4.5); Sodium 142 mEq/L (136-145); eGFR For African Americans > 60 (> 60); eGFR For Non-African Americans > 60 (> 60)
[2016-12-15 16:07] LABS: Ionized Calcium 1.18 mmol/L (1.15-1.35)
[2016-12-15] MEDS ORDERED: Potassium Chloride Elixir 20 MEQ/15 ML UDC PO ONE (17:16)
[2016-12-15] MEDS: FentaNYL (PF) 3,000 MCG in 0.9 % Sodium Chloride 240 ML IVC SCH (22:45)
[2016-12-16] MEDS: Insulin LISPRO 300 UNITS/3 ML VIAL SQ SCH ×5 (00:22→23:55)
[2016-12-16] MEDS: Ringers Solution, Lactated 1,000 ML IVC SCH ×2 (01:28→12:47)
[2016-12-16] MEDS: Ipratropium/Albuterol Neb 3 ML IH SCH ×4 (03:38→21:56)
[2016-12-16 04:20] LABS: ABG Base Excess -3.3 mEq/L (-2.0 to 3.0); ABG HCO3 22.1 mEQ/L (21-27); ABG Oxygen Saturation 99 % (95-98); ABG PCO2 40 mmHg (35-45); ABG PH 7.35 pH Units (7.32-7.45); ABG PO2 148 mmHg (85-104); ABG TCO2 23.3 mEq/L (20-26)
[2016-12-16 04:21] LABS: Blood Gas FiO2 40 %
[2016-12-16] MEDS: *HR* Heparin 5,000 UNIT/ML VIAL SQ SCH ×3 (05:20→21:12)
[2016-12-16] MEDS: methylPREDNISolone 125 MG/2 ML VIAL IVP SCH ×4 (05:20→23:54)
[2016-12-16] MEDS: Lacri-Lube 3.5 GM TUBE BOTH EYES SCH ×6 (05:23→23:54)
[2016-12-16 07:18] LABS: Hematocrit 32.1 % (35.3-44.9); Mean Corpuscular HGB Conc 31.5 g/dL (31.6-35.5); Mean Corpuscular Hemoglobin 30.9 pg (28.0-33.3); Mean Corpuscular Volume 98.2 fL (83.0-100.0); Mean Platelet Volume 10.4 fL (9.4-12.4); Platelet Count 169 K/mcL (140-400); Red Blood Count 3.27 M/mcL (3.82-4.97); Red Cell Distribution Width 15.5 % (11.5-14.5)
[2016-12-16 07:30] LABS: Hemoglobin 10.1 g/dL (11.5-15.4)
[2016-12-16 07:43] LABS: Ionized Calcium 1.23 mmol/L (1.15-1.35)
[2016-12-16 07:45] LABS: BUN/Creatinine Ratio 31 (6-26); Blood Urea Nitrogen 20 mg/dL (7-20); Calcium 8.8 mg/dL (8.6-10.8); Carbon Dioxide 21 mEq/L (19-29); Chloride 113 mEq/L (98-109); Glucose 118 mg/dL (70-99); Magnesium 2.1 mg/dL (1.6-2.6); Osmolality,Calculated 298 (280-300); Phosphorous 2.4 mg/dL (2.3-4.7); Potassium 4.1 mEq/L (3.5-4.5); Sodium 142 mEq/L (136-145); eGFR For African Americans > 60 (> 60); eGFR For Non-African Americans > 60 (> 60)
[2016-12-16] MEDS: Chlorhexidine Rinse 15 ML MOUTHWASH MM SCH ×2 (08:04→21:11)
[2016-12-16] MEDS: Aztreonam 2,000 MG in D5% in Water (Mini-Bag+) 100 ML IVPB SCH (08:04)
[2016-12-16] MEDS: Pantoprazole 40 MG VIAL IVPB SCH (08:04)
[2016-12-16] MEDS: Cefepime HCl 2,000 MG in D5% in Water (Mini-Bag+) 100 ML IVPB SCH ×2 (08:05→21:12)
[2016-12-16 08:23] LABS: Lymphocytes # 0.8 K/mcL (0.6-4.6); Monocytes # 0.8 K/mcL (0.0-1.3); Neutrophils # 18.8 K/mcL (1.6-8.9)
[2016-12-16 08:24] LABS: Platelet Estimate Normal (Normal)
--- NOTE | 2016-12-16 09:34 | Pulmonology Progress Note ---
<Nava Dutton - Last Filed: 12/16/16 09:32> Date of Encounter: 12/16/16 Time of Encounter: 09:32 Assessment and Plan (1) Sepsis Current Visit: Yes Status: Acute upon admission, patient had tachycardia, hypotension, tachypnea, elevated WBC. 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 WBC treding down lactic acid now normalized. legionella and strep pneumo antigen negative sputum culture grew e. coli blood culture grew MRSA. Plan: ABX de escalated to vanc and cefepime. aztreonam discontinued based on sensitivities. repeat CT head today appreciate neuro input CPAP trial today. Qualifiers: Sepsis type: sepsis due to unspecified organism Qualified Code(s): A41.9 - Sepsis, unspecified organism (2) Acute and chronic respiratory failure Current Visit: No Status: Acute likely secondary to aspiration pneumonia. CPAP trial today. continue antibiotics. Qualifiers: Respiratory failure complication: hypoxia and hypercapnia Qualified Code(s) : J96.21 - Acute and chronic respiratory failure with hypoxia; J96.22 - Acute and chronic respiratory failure with hypercapnia (3) Acute renal failure Current Visit: Yes Status: Resolved resolved Qualifiers: Acute renal failure type: unspecified Qualified Code(s): N17.9 - Acute kidney failure, unspecified (4) Altered level of consciousness Current Visit: Yes Status: Acute patient was found by daughter to be unresponsive for an unknown period of time. cause unknown, but likely secondary to drug use, aspiration pneumonia, and sepsis. UDS positive for opiates, benzos, marijuana. concern for anoxic brain injury. (5) Aspiration pneumonia Current Visit: No Status: Suspected CXR showed bilaterla pneumonia with chronic underlying changes. 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 blood culture positive for MRSA sputum culture positive for E.Coli sensitive to vanc and cefepime. discontinued aztreonam today. CPAP trial today. Qualifiers: Aspiration pneumonia type: unspecified Laterality: bilateral Lung location: unspecified part of lung Qualified Code(s): J69.0 - Pneumonitis due to inhalation of food and vomit (6) Cardiac arrest Current Visit: Yes Status: Acute patient had episode of cardiac arrest in ED before admission to ICU. she completed hypothermic protocol yesterday. troponins downtrending echo showed LVEF 60-65% with no dysfunction. continue cardiac monitoring. (7) Hypotension Current Visit: Yes Status: Acute likely secondary to sedation and hypothermia protocol. patient is off vasopressors continue to monitor. Qualifiers: Hypotension type: unspecified hypotension type Qualified Code(s): I95.9 - Hypotension, unspecified (8) COPD (chronic obstructive pulmonary disease) Current Visit: Yes Status: Acute End stage COPD, on 4L home oxygen. continue bronchodilators, steroids, antibiotics, ventilatory support. CPAP trial today. extubate if tolerated. Qualifiers: COPD type: unspecified COPD Qualified Code(s): J44.9 - Chronic obstructive pulmonary disease, unspecified (9) Norovirus Current Visit: Yes Status: Acute rectal tube in place. continue with contact precautions. continue electrolyte protocol. continue lactated ringers. 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 follows with Dr. Allison outpatient. patient also has dysphagia and right sided weaknes secondary to glioma. (11) Chronic use of steroids Current Visit: Yes Status: Acute patient's home med includes Decadron 4mg PO BID to decrease glioma associated swelling. 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 continue solmedrol 60q6 and wean down as tolerated. (12) DVT prophylaxis Current Visit: No Status: Acute heparin SQ Subjective Principal diagnosis: Acute respiratory failure, found unresponsive Interval history: 36-year-old female evaluated at bedside. No acute events overnight. Patient remains intubated and sedated. Objective PUL Vital signs: Last Vital Signs Temp 97.3 F L 12/16/16 07:45 Pulse 75 12/16/16 08:45 Resp 16 12/16/16 08:45 BP 134/90 12/16/16 08:45 Pulse Ox 100 12/16/16 08:45 General appearance: other (intbated and sedated. ) Eyes: nonicteric, other Neck: supple, no JVD Auscultation: bilateral: wheezes, rhonchi Cardiovascular: regular rate and rhythm Gastrointestinal: hypoactive bowel sounds, soft, non-tender Integumentary: normal Extremities: no cyanosis, no edema unable to assess due to mental status Ventilator Settings Ventilator Settings: Ventilator Settings, Last 8 Hours Ventilator Mode VC+ Ventilator Mode VC+ Ventilator Mode VC+ Ventilator Mode VC+ Ventilator Mode VC+ Ventilator Mode VC+ Ventilator Mode VC+ Ventilator Mode VC+ Ventilator Mode VC+ Ventilator Mode VC+ Ventilator Tidal Volume 550 Setting Ventilator Tidal Volume 550 Setting Ventilator Tidal Volume 550 Setting Ventilator Tidal Volume 550 Setting Ventilator Tidal Volume 550 Setting Ventilator Tidal Volume 550 Setting Ventilator Tidal Volume 550 Setting Ventilator Tidal Volume 550 Setting Ventilator Tidal Volume 550 Setting Ventilator Tidal Volume 550 Setting Ventilator Respiratory Rate 16 Setting Ventilator Respiratory Rate 16 Setting Ventilator Respiratory Rate 16 Setting Ventilator Respiratory Rate 16 Setting Ventilator Respiratory Rate 16 Setting Ventilator Respiratory Rate 16 Setting Ventilator Respiratory Rate 16 Setting Ventilator Respiratory Rate 16 Setting Ventilator Respiratory Rate 16 Setting Ventilator Respiratory Rate 16 Setting Actual Respiratory Rate 16 Actual Respiratory Rate 16 Actual Respiratory Rate 16 Actual Respiratory Rate 16 Actual Respiratory Rate 16 Actual Respiratory Rate 16 Actual Respiratory Rate 16 Actual Respiratory Rate 16 Actual Respiratory Rate 16 Positive End Expiratory 5 Pressure Positive End Expiratory 5 Pressure Positive End Expiratory 5 Pressure Positive End Expiratory 5 Pressure Positive End Expiratory 5 Pressure Positive End Expiratory 5 Pressure Positive End Expiratory 5 Pressure Positive End Expiratory 5 Pressure Positive End Expiratory 5 Pressure Positive End Expiratory 5 Pressure Peak Inspiratory Airway 34 Pressure Peak Inspiratory Airway 31 Pressure Peak Inspiratory Airway 31 Pressure Peak Inspiratory Airway 31 Pressure Peak Inspiratory Airway 31 Pressure Peak Inspiratory Airway 25 Pressure Peak Inspiratory Airway 32 Pressure Peak Inspiratory Airway 41 Pressure Peak Inspiratory Airway 30 Pressure Peak Inspiratory Airway 27 Pressure Results - Laboratory Findings CBC and BMP: 12/16/16 06:41 12/16/16 06:41 ABG ABG pH 7.35 pH Units (7.32-7.45) 12/16/16 04:05 ABG pCO2 40 mmHg (35-45) 12/16/16 04:05 ABG pO2 148 mmHg (85-104) H 12/16/16 04:05 ABG O2 Saturation 99 % (95-98) H 12/16/16 04:05 PT/INR, D-dimer PT 14.9 Seconds (9.4-12.1) H 12/15/16 05:10 Abnormal lab findings: Abnormal lab results WBC 20.4 K/mcL (4.3-11.1) H D 12/16/16 06:41 RBC 3.27 M/mcL (3.82-4.97) L 12/16/16 06:41 Hgb 10.1 g/dL (11.5-15.4) L D 12/16/16 06:41 Hct 32.1 % (35.3-44.9) L 12/16/16 06:41 MCHC 31.5 g/dL (31.6-35.5) L 12/16/16 06:41 RDW 15.5 % (11.5-14.5) H 12/16/16 06:41 Band Neutrophils % 17.0 % (0-4) H 12/15/16 05:10 Metamyelocytes % 4.0 % (0) H 12/14/16 23:35 Promyelocytes % 1.0 % (0) H 12/14/16 00:25 Neutrophils # 18.8 K/mcL (1.6-8.9) H 12/16/16 06:41 Nucleated RBCs/100 WBC 0.1 /100 WBC (0) H 12/14/16 00:25 Reactive Lymphocytes Present (Not Present) A 12/13/16 15:41 Clumped Platelets Few (Not Present) A 12/14/16 00:25 Polychromasia 1+ (Not Present) A 12/13/16 15:41 PT 14.9 Seconds (9.4-12.1) H 12/15/16 05:10 ABG pO2 148 mmHg (85-104) H 12/16/16 04:05 ABG O2 Saturation 99 % (95-98) H 12/16/16 04:05 ABG Base Excess -3.3 mEq/L (-2.0 to 3.0) L 12/16/16 04:05 Chloride 113 mEq/L (98-109) H 12/16/16 06:41 BUN/Creatinine Ratio 31 (6-26) H 12/16/16 06:41 Glucose 118 mg/dL (70-99) H 12/16/16 06:41 POC Glucose 112 (58-89) H 12/16/16 00:01 AST 167 Units/L (5-34) H 12/14/16 05:44 ALT 60 Units/L (0-55) H 12/14/16 05:44 Troponin I 1.06 ng/mL (0-0.03) H* 12/14/16 05:44 B-Natriuretic Peptide 150 pg/mL (0-100) H 12/13/16 16:45 Serum Total Protein 5.5 g/dL (6.0-8.3) L 12/14/16 05:44 Albumin 2.3 g/dL (3.5-5.0) L 12/14/16 05:44 Albumin/Globulin Ratio 0.7 (1.1-2.2) L 12/14/16 05:44 Urine Color Raymond (Yellow) A 12/13/16 15:06 Urine Clarity Turbid (Clear) A 12/13/16 15:06 Urine Protein 100 mg/dL (Neg-Trace) H 12/13/16 15:06 Urine Ketones 15 mg/dL (Negative) H 12/13/16 15:06 Urine Blood Large (Negative) H 12/13/16 15:06 Urine Bilirubin Moderate (Negative) H 12/13/16 15:06 Ur Leukocyte Esterase Large (Negative) H 12/13/16 15:06 Urine Microscopic RBC 50-100 per hpf (0-3) H 12/13/16 15:06 Urine Microscopic WBC 30-50 per hpf (0-3) H 12/13/16 15:06 Urine Bacteria Many per hpf (None-Few) H 12/13/16 15:06 Ur Culture Indicated? YES (NO) A 12/13/16 15:06 Stl Norovirus GI/GII PCR DETECTED (Not detect) A 12/13/16 21:44 Vancomycin Trough 21.4 mcg/mL (10-20) H* 12/15/16 08:45 Urine Opiates Screen Positive ng/mL (Lpjllw=987) H 12/13/16 18:20 Acetaminophen < 1.0 mcg/mL (10-30) L 12/13/16 19:30 U Benzodiazepines Scrn Positive ng/mL (Emjaeh=832) H 12/13/16 18:20 U Marijuana (THC) Screen Positive ng/mL (Cutoff = 50) H 12/13/16 18:20 Staphylococcus sp PCR DETECTED (Not Detect) A 12/13/16 15:41 mecA-Methicil Res Gene DETECTED (Not Detect) A 12/13/16 15:41 - Microbiology Findings Microbiology Findings: Microbiology, Last 48 Hours 12/14/16 04:45 Sputum Culture - Final Sputum Escherichia coli 12/14/16 09:05 Legionella Antigen - Final Urine,[place] Streptococcus pneumoniae Antigen (M - Final - Clinical Findings Intake & Output: Intake & Output 12/15/16 12/16/16 12/16/16 23:59 07:59 15:59 Intake Total 1493 / 1493 1629 / 1629 Output Total 350 / 350 100 / 100 Balance 1143 / 1143 1529 / 1529 Weight 71 kg - VTE Documentation of Mechanical Device: Intermittent pneumatic compression device Consult Discharge Plan - Plan Referrals: NO,PCP [Primary Care Provider] - <Cheryl Garcia M - Last Filed: 12/16/16 15:44> Date of Encounter: 12/16/16 Objective PUL Vital signs: Last Vital Signs Temp 98.6 F 12/16/16 11:40 Pulse 77 12/16/16 11:40 Resp 16 12/16/16 11:40 BP 138/96 12/16/16 11:40 Pulse Ox 99 12/16/16 11:40 Ventilator Settings Ventilator Settings: Ventilator Settings, Last 8 Hours Ventilator Mode VC+ Ventilator Mode CPAP Ventilator Mode VC+ Ventilator Mode VC+ Ventilator Mode VC+ Ventilator Mode VC+ Ventilator Mode VC+ Ventilator Tidal Volume 550 Setting Ventilator Tidal Volume 550 Setting Ventilator Tidal Volume 550 Setting Ventilator Tidal Volume 550 Setting Ventilator Tidal Volume 550 Setting Ventilator Tidal Volume 550 Setting Ventilator Tidal Volume 550 Setting Ventilator Respiratory Rate 16 Setting Ventilator Respiratory Rate 16 Setting Ventilator Respiratory Rate 16 Setting Ventilator Respiratory Rate 16 Setting Ventilator Respiratory Rate 16 Setting Ventilator Respiratory Rate 16 Setting Ventilator Respiratory Rate 16 Setting Actual Respiratory Rate 16 Actual Respiratory Rate 17 Actual Respiratory Rate 16 Actual Respiratory Rate 16 Actual Respiratory Rate 16 Actual Respiratory Rate 16 Actual Respiratory Rate 16 Positive End Expiratory 5 Pressure Positive End Expiratory 5 Pressure Positive End Expiratory 5 Pressure Positive End Expiratory 5 Pressure Positive End Expiratory 5 Pressure Positive End Expiratory 5 Pressure Positive End Expiratory 5 Pressure Peak Inspiratory Airway 29 Pressure Peak Inspiratory Airway 29 Pressure Peak Inspiratory Airway 28 Pressure Peak Inspiratory Airway 31 Pressure Peak Inspiratory Airway 34 Pressure Peak Inspiratory Airway 31 Pressure Peak Inspiratory Airway 31 Pressure Peak Inspiratory Airway 31 Pressure Peak Inspiratory Airway 31 Pressure Peak Inspiratory Airway 25 Pressure Results - Laboratory Findings CBC and BMP: 12/16/16 06:41 12/16/16 06:41 ABG ABG pH 7.35 pH Units (7.32-7.45) 12/16/16 04:05 ABG pCO2 40 mmHg (35-45) 12/16/16 04:05 ABG pO2 148 mmHg (85-104) H 12/16/16 04:05 ABG O2 Saturation 99 % (95-98) H 12/16/16 04:05 PT/INR, D-dimer PT 14.9 Seconds (9.4-12.1) H 12/15/16 05:10 Abnormal lab findings: Abnormal lab results WBC 20.4 K/mcL (4.3-11.1) H D 12/16/16 06:41 RBC 3.27 M/mcL (3.82-4.97) L 12/16/16 06:41 Hgb 10.1 g/dL (11.5-15.4) L D 12/16/16 06:41 Hct 32.1 % (35.3-44.9) L 12/16/16 06:41 MCHC 31.5 g/dL (31.6-35.5) L 12/16/16 06:41 RDW 15.5 % (11.5-14.5) H 12/16/16 06:41 Band Neutrophils % 17.0 % (0-4) H 12/15/16 05:10 Metamyelocytes % 4.0 % (0) H 12/14/16 23:35 Promyelocytes % 1.0 % (0) H 12/14/16 00:25 Neutrophils # 18.8 K/mcL (1.6-8.9) H 12/16/16 06:41 Nucleated RBCs/100 WBC 0.1 /100 WBC (0) H 12/14/16 00:25 Reactive Lymphocytes Present (Not Present) A 12/13/16 15:41 Clumped Platelets Few (Not Present) A 12/14/16 00:25 Polychromasia 1+ (Not Present) A 12/13/16 15:41 PT 14.9 Seconds (9.4-12.1) H 12/15/16 05:10 ABG pO2 148 mmHg (85-104) H 12/16/16 04:05 ABG O2 Saturation 99 % (95-98) H 12/16/16 04:05 ABG Base Excess -3.3 mEq/L (-2.0 to 3.0) L 12/16/16 04:05 Chloride 113 mEq/L (98-109) H 12/16/16 06:41 BUN/Creatinine Ratio 31 (6-26) H 12/16/16 06:41 Glucose 118 mg/dL (70-99) H 12/16/16 06:41 POC Glucose 171 (58-89) H 12/16/16 11:45 AST 167 Units/L (5-34) H 12/14/16 05:44 ALT 60 Units/L (0-55) H 12/14/16 05:44 Troponin I 1.06 ng/mL (0-0.03) H* 12/14/16 05:44 B-Natriuretic Peptide 150 pg/mL (0-100) H 12/13/16 16:45 Serum Total Protein 5.5 g/dL (6.0-8.3) L 12/14/16 05:44 Albumin 2.3 g/dL (3.5-5.0) L 12/14/16 05:44 Albumin/Globulin Ratio 0.7 (1.1-2.2) L 12/14/16 05:44 Urine Color Raymond (Yellow) A 12/13/16 15:06 Urine Clarity Turbid (Clear) A 12/13/16 15:06 Urine Protein 100 mg/dL (Neg-Trace) H 12/13/16 15:06 Urine Ketones 15 mg/dL (Negative) H 12/13/16 15:06 Urine Blood Large (Negative) H 12/13/16 15:06 Urine Bilirubin Moderate (Negative) H 12/13/16 15:06 Ur Leukocyte Esterase Large (Negative) H 12/13/16 15:06 Urine Microscopic RBC 50-100 per hpf (0-3) H 12/13/16 15:06 Urine Microscopic WBC 30-50 per hpf (0-3) H 12/13/16 15:06 Urine Bacteria Many per hpf (None-Few) H 12/13/16 15:06 Ur Culture Indicated? YES (NO) A 12/13/16 15:06 Stl Norovirus GI/GII PCR DETECTED (Not detect) A 12/13/16 21:44 Vancomycin Trough 21.4 mcg/mL (10-20) H* 12/15/16 08:45 Urine Opiates Screen Positive ng/mL (Aqxvkj=727) H 12/13/16 18:20 Acetaminophen < 1.0 mcg/mL (10-30) L 12/13/16 19:30 U Benzodiazepines Scrn Positive ng/mL (Twyymb=293) H 12/13/16 18:20 U Marijuana (THC) Screen Positive ng/mL (Cutoff = 50) H 12/13/16 18:20 Staphylococcus sp PCR DETECTED (Not Detect) A 12/13/16 15:41 mecA-Methicil Res Gene DETECTED (Not Detect) A 12/13/16 15:41 - Microbiology Findings Microbiology Findings: Microbiology, Last 48 Hours 12/14/16 04:45 Sputum Culture - Final Sputum Escherichia coli 12/14/16 09:05 Legionella Antigen - Final Urine,[place] Streptococcus pneumoniae Antigen (M - Final - Clinical Findings Intake & Output: Intake & Output 12/15/16 12/16/16 12/16/16 23:59 07:59 15:59 Intake Total 1493 / 1493 1629 / 1629 Output Total 350 / 350 100 / 100 400 / 400 Balance 1143 / 1143 1529 / 1529 -400 / -400 Weight 71 kg - Attending Attestation I examined this patient and my medical decision-making was reviewed with the INPATIENT PHARMACIST/PA/Advanced Practice Nurse/Resident Physician. I agree with the documented findings, disposition and treatment plan as described except to the extent set forth below. Patient seen and examined. Labs, radiology, chart personally reviewed. Agree with resident's history and physical, assessment, plan with following comments: SUPPLY AIDE: Patient does not follows commands, spontaneously opens eyes, but no purposeful movements. Repeat CT chest and neurology consultation appreciated. I suspect poor prognosis. Minimize sedation as much as possible Pulmonary: Acceptable oxygenation and ventilation and patient is tolerating spontaneous breathing trial, however it is not clear due to her social circumstances always to person to make decision for her if she needs reintubation and for that reason we will not extubate until we have power of environmental attorney. Social service is following up and may need to involve risk and the counts. Cardiovascular: stable GI: Nutrition per dietary and GI prophylaxis per routine Heme: DVT prophylaxis per routine ID: Continue antibiotics and plan to de-escalation Renal; urine out put and renal funtion reviewed Endorcine: blood glucose is monitored Lines: all lines checked and no evidence of infections Skin: skin care to prevent pressure ulcers per nursing routine care
[2016-12-16] MEDS: Budesonide/Formoterol 160/4.5 MDI IH SCH ×2 (10:00→21:56)
--- NOTE | 2016-12-16 10:25 | Neurology - Consult Note ---
Date of Encounter: 12/16/16 Time of Encounter: 10:22 Assessment and Plan (1) Anoxic brain injury Current Visit: Yes Status: Acute At this juncture patient is not brain . She does have brainstem reflexes present including doll's eyes, and corneal blink reflexes. However it is somewhat discouraging that her level of consciousness has not improved since her initial admission. She did experience acute respiratory failure, and the amount of time that she was in respiratory failure prior to her daughter finding was unknown, and then she had to have advanced life support measures taken after arriving here to the hospital. 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 Only time will tell to what extent she is capable of recovering. If she improves enough to be extubated then the sedation can be lightened up and we can more clearly identify what her baseline is. Some of these neurologic deficits pertaining to the hyperreflexia and long track signs were possibly be related to the brainstem glioma. I will reevaluate her tomorrow. Time spent today providing critical care for this patient was 55 minutes. History of Present Illness HPI: Ms. Perez is a 36 year old female who is seen for neurologic consultation secondary to decreased levels of consciousness. This is a very unfortunate case. 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 She did not really care of our oncologist for this problem. She also had a history of heavy narcotic dependence and perhaps even illicit opiates. Apparently she was found unresponsive by her 14-year-old daughter. Her daughter called 911 and she arrived to [facility]'s ED and respiratory failure. Upon arrival she was intubated and shortly thereafter went into cardiac arrest. ACLS protocol was implemented she was coded for about 7 minutes. Initially he had no response to atropine, she was defibrillated twice and given epinephrine. Finally she did have spontaneous return of circulation. However she remains unresponsive. She has a known history of recurrent aspiration pneumonias. It is felt that she currently has aspiration pneumonia which precipitated sepsis and ultimately respiratory failure. She is now septic, has acute renal failure and has been unresponsive since arrival. I did review the MRI scan of the brain which was completed back in 2015. It does show an infiltrative process involving most of the alex. The initial CT scan of the brain completed on 12/13/16 of this admission was degraded by motion. However there is no evidence of acute infarct, no hydrocephalus is present. Cortical sulci markings are fairly well delineated. No mass effect is identified. The repeat scan of the brain completed on 12/16/2016 revealed no significant change in my opinion. The brainstem and posterior fossa are not very well delineated on CT scan. However cortical sulcal markings remain intact. Pappas matter interface is easily delineated. She remains unresponsive. Past Med Surg Social Fam HX - Past Medical History Medical history: asthma, cancer, seizures Psychiatric history: depression - Past Surgical History Surgical History: other - Social History Smoking Status: Current every day smoker Smokeless Tobacco Status: No Alcohol use: none Drug use: none Medications and Allergies Albuterol Sulfate [Albuterol Inhaler] 2 puff IH Q4HR PRN #1 unit 11/15/15 [Rx] Docusate Sodium [Dok] 250 mg PO DAILY #30 capsule 03/09/16 [Rx] Folic Acid 1 mg PO DAILY 06/17/16 [History] Simethicone [Gas-X] 80 mg PO DAILY #30 tab.chew 08/16/16 [Rx] Nystatin [Nystatin Suspension] 5 ml PO QID #120 ml 09/17/16 [Rx] Calcium Carbonate/Vitamin D3 [Calcium 500-Vit D3 200 Tablet] 1 each PO DAILY # 30 tablet 10/25/16 [Rx] Sulfamethoxazole/Trimeth DS [Bactrim DS] 1 each PO DAILY #30 tablet 10/25/16 [Rx ] Beclomethasone Diprop 80mcg [Qvar 80 mcg] 1 puff IH BID #1 aer.w.adap 11/13/16 [ Rx] Bisacodyl [Dulcolax] 5 - 10 mg PO DAILY PRN #60 tablet 11/13/16 [Rx] Dexamethasone [Decadron] 4 mg PO BID #60 tablet 11/13/16 [Rx] Famotidine [Pepcid] 20 mg PO DAILY #30 tablet 11/13/16 [Rx] ALPRAZolam [Xanax 1 MG Tablet] 1 - 2 mg PO TID PRN #126 tablet 11/23/16 [Rx] HYDROcodone/Acet 10/325 mg [[place] 10-325 mg] 1 - 2 tab PO Q4HR PRN #240 tab [Rx] Citalopram [CeleXA] 20 mg PO DAILY #30 tablet 12/04/16 [Rx] Gabapentin [Neurontin] 800 mg PO QID #120 tablet 12/04/16 [Rx] Ascorbic Acid [Vitamin C] 500 mg PO DAILY 12/13/16 [History] Ondansetron ODT [Zofran ODT] 4 mg PO Q6H PRN 12/13/16 [History] Allergies ethinyl estradiol [From Ortho Tri-Cyclen (28)] Allergy (Verified 11/01/16 23:20) Hives norgestimate [From Ortho Tri-Cyclen (28)] Allergy (Verified 11/01/16 23:20) Hives ROS unobtainable: due to mental status All Systems: A 10-system review of systems was performed and is negative for pertinent findings except as documented above in the HPI. Physical Examination - Vital Signs Vital Signs: Initial Vital Signs Temp Pulse Resp BP Pulse Ox 98.3 F 164 14 135/104 90 12/13/16 14:40 12/13/16 14:40 12/13/16 14:40 12/13/16 14:40 12/13/16 14:40 - Exam Exam: Neurologic examination finds a following: Mental status exam-patient does open her eyes to tactile as well as voice stimuli, however she does not fixate, she did not follow commands, related to simple reflex. Occasional decerebrate posturing is identified. No grimacing or localization of tactile stimulation is present. Cranial nerve exam-pupils are equal, but unresponsive that 3-4 mm. She has disconjugate gaze at rest. Doll's eyes are present however. She has symmetric corneal reflexes. She does have some eyelid edema therefore funduscopic examination is difficult. No nystagmus is present. No roving eye movements. She is not breathing above the ventilator at this point. Motor exam-the patient has flaccid tone of the upper and lower extremities. No involuntary movements are identified. No voluntary or purposeful movements identified. Sensory exam is difficult to assess in a comatose patient. Deep tendon reflexes are 3/4, biceps triceps brachial radialis patellar symmetrically. She does have bilateral Babinski signs. Results - Laboratory Findings CBC and BMP: 12/16/16 06:41 12/16/16 06:41 Abnormal lab findings: Abnormal lab results WBC 20.4 K/mcL (4.3-11.1) H D 12/16/16 06:41 RBC 3.27 M/mcL (3.82-4.97) L 12/16/16 06:41 Hgb 10.1 g/dL (11.5-15.4) L D 12/16/16 06:41 Hct 32.1 % (35.3-44.9) L 12/16/16 06:41 MCHC 31.5 g/dL (31.6-35.5) L 12/16/16 06:41 RDW 15.5 % (11.5-14.5) H 12/16/16 06:41 Band Neutrophils % 17.0 % (0-4) H 12/15/16 05:10 Metamyelocytes % 4.0 % (0) H 12/14/16 23:35 Promyelocytes % 1.0 % (0) H 12/14/16 00:25 Neutrophils # 18.8 K/mcL (1.6-8.9) H 12/16/16 06:41 Nucleated RBCs/100 WBC 0.1 /100 WBC (0) H 12/14/16 00:25 Reactive Lymphocytes Present (Not Present) A 12/13/16 15:41 Clumped Platelets Few (Not Present) A 12/14/16 00:25 Polychromasia 1+ (Not Present) A 12/13/16 15:41 PT 14.9 Seconds (9.4-12.1) H 12/15/16 05:10 ABG pO2 148 mmHg (85-104) H 12/16/16 04:05 ABG O2 Saturation 99 % (95-98) H 12/16/16 04:05 ABG Base Excess -3.3 mEq/L (-2.0 to 3.0) L 12/16/16 04:05 Chloride 113 mEq/L (98-109) H 12/16/16 06:41 BUN/Creatinine Ratio 31 (6-26) H 12/16/16 06:41 Glucose 118 mg/dL (70-99) H 12/16/16 06:41 POC Glucose 112 (58-89) H 12/16/16 00:01 AST 167 Units/L (5-34) H 12/14/16 05:44 ALT 60 Units/L (0-55) H 12/14/16 05:44 Troponin I 1.06 ng/mL (0-0.03) H* 12/14/16 05:44 B-Natriuretic Peptide 150 pg/mL (0-100) H 12/13/16 16:45 Serum Total Protein 5.5 g/dL (6.0-8.3) L 12/14/16 05:44 Albumin 2.3 g/dL (3.5-5.0) L 12/14/16 05:44 Albumin/Globulin Ratio 0.7 (1.1-2.2) L 12/14/16 05:44 Urine Color Woods (Yellow) A 12/13/16 15:06 Urine Clarity Turbid (Clear) A 12/13/16 15:06 Urine Protein 100 mg/dL (Neg-Trace) H 12/13/16 15:06 Urine Ketones 15 mg/dL (Negative) H 12/13/16 15:06 Urine Blood Large (Negative) H 12/13/16 15:06 Urine Bilirubin Moderate (Negative) H 12/13/16 15:06 Ur Leukocyte Esterase Large (Negative) H 12/13/16 15:06 Urine Microscopic RBC 50-100 per hpf (0-3) H 12/13/16 15:06 Urine Microscopic WBC 30-50 per hpf (0-3) H 12/13/16 15:06 Urine Bacteria Many per hpf (None-Few) H 12/13/16 15:06 Ur Culture Indicated? YES (NO) A 12/13/16 15:06 Stl Norovirus GI/GII PCR DETECTED (Not detect) A 12/13/16 21:44 Vancomycin Trough 21.4 mcg/mL (10-20) H* 12/15/16 08:45 Urine Opiates Screen Positive ng/mL (Vfrirk=390) H 12/13/16 18:20 Acetaminophen < 1.0 mcg/mL (10-30) L 12/13/16 19:30 U Benzodiazepines Scrn Positive ng/mL (Ajcuxi=795) H 12/13/16 18:20 U Marijuana (THC) Screen Positive ng/mL (Cutoff = 50) H 12/13/16 18:20 Staphylococcus sp PCR DETECTED (Not Detect) A 12/13/16 15:41 mecA-Methicil Res Gene DETECTED (Not Detect) A 12/13/16 15:41 Consult Discharge Plan - Plan Referrals: NO,PCP [Primary Care Provider] -
[2016-12-16] MEDS: Vancomycin 750 MG in D5% in Water 250 ML IVPB SCH ×2 (10:32→23:53)
[2016-12-17 03:20] LABS: Basophils % 0.1 %; Hematocrit 30.8 % (35.3-44.9); Hemoglobin 9.9 g/dL (11.5-15.4); Immature Granulocytes % 1.4 % (0-4); Lymphocytes # 0.5 K/mcL (0.6-4.6); Lymphocytes % 2.6 %; Mean Corpuscular HGB Conc 32.1 g/dL (31.6-35.5); Mean Corpuscular Volume 96.6 fL (83.0-100.0); Mean Platelet Volume 10.9 fL (9.4-12.4); Monocytes # 0.6 K/mcL (0.0-1.3); Neutrophils # 17.9 K/mcL (1.6-8.9); Nucleated Red Blood Cells 0.2 /100 WBC (0); Platelet Count 176 K/mcL (140-400); Red Blood Count 3.19 M/mcL (3.82-4.97); Red Cell Distribution Width 15.5 % (11.5-14.5); Segmented Neutrophils % 92.9 %
[2016-12-17 03:24] LABS: Ionized Calcium 1.31 mmol/L (1.15-1.35)
[2016-12-17] MEDS: Ipratropium/Albuterol Neb 3 ML IH SCH ×4 (03:27→21:40)
[2016-12-17] MEDS: Lacri-Lube 3.5 GM TUBE BOTH EYES SCH ×5 (03:32→21:08)
[2016-12-17 03:33] LABS: BUN/Creatinine Ratio 46 (6-26); Blood Urea Nitrogen 28 mg/dL (7-20); Calcium 8.7 mg/dL (8.6-10.8); Carbon Dioxide 24 mEq/L (19-29); Chloride 111 mEq/L (98-109); Glucose 107 mg/dL (70-99); Osmolality,Calculated 300 (280-300); Phosphorous 2.3 mg/dL (2.3-4.7); Potassium 3.5 mEq/L (3.5-4.5); Sodium 142 mEq/L (136-145); eGFR For African Americans > 60 (> 60); eGFR For Non-African Americans > 60 (> 60)
[2016-12-17] MEDS: Potassium Chloride 40 MEQ/200 ML BAG IVPB PRN (04:44)
[2016-12-17 05:27] LABS: ABG Base Excess 2.6 mEq/L (-2.0 to 3.0); ABG HCO3 26.1 mEQ/L (21-27); ABG Oxygen Saturation 99 % (95-98); ABG PCO2 35 mmHg (35-45); ABG PH 7.48 pH Units (7.32-7.45); ABG PO2 137 mmHg (85-104); ABG TCO2 27.2 mEq/L (20-26)
[2016-12-17 05:28] LABS: Blood Gas FiO2 40 %; Blood Gas PEEP 5 cm H2O
[2016-12-17] MEDS: methylPREDNISolone 125 MG/2 ML VIAL IVP SCH ×3 (06:23→18:01)
[2016-12-17] MEDS: *HR* Heparin 5,000 UNIT/ML VIAL SQ SCH ×3 (06:23→21:08)
[2016-12-17] MEDS: Insulin LISPRO 300 UNITS/3 ML VIAL SQ SCH ×3 (06:36→17:58)
--- NOTE | 2016-12-17 07:50 | Pulmonology Progress Note ---
<CliffordVega W - Last Filed: 12/17/16 12:18> Date of Encounter: 12/17/16 Objective PUL Vital signs: Last Vital Signs Temp 99.3 F 12/17/16 07:42 Pulse 74 12/17/16 08:00 Resp 25 12/17/16 08:00 BP 136/88 12/17/16 08:00 Pulse Ox 99 12/17/16 08:00 Ventilator Settings Ventilator Settings: Ventilator Settings, Last 8 Hours Ventilator Mode CPAP Ventilator Mode CPAP Ventilator Mode CPAP Ventilator Mode CPAP Ventilator Mode CPAP Ventilator Mode VC+ Ventilator Mode VC+ Ventilator Mode VC+ Ventilator Mode VC+ Ventilator Mode VC+ Ventilator Mode VC+ Ventilator Mode VC+ Ventilator Tidal Volume 550 Setting Ventilator Tidal Volume 550 Setting Ventilator Tidal Volume 550 Setting Ventilator Tidal Volume 550 Setting Ventilator Tidal Volume 550 Setting Ventilator Tidal Volume 550 Setting Ventilator Tidal Volume 550 Setting Ventilator Respiratory Rate 16 Setting Ventilator Respiratory Rate 16 Setting Ventilator Respiratory Rate 16 Setting Ventilator Respiratory Rate 16 Setting Ventilator Respiratory Rate 16 Setting Ventilator Respiratory Rate 16 Setting Ventilator Respiratory Rate 16 Setting Actual Respiratory Rate 25 Actual Respiratory Rate 25 Actual Respiratory Rate 25 Actual Respiratory Rate 30 Actual Respiratory Rate 31 Actual Respiratory Rate 16 Actual Respiratory Rate 16 Actual Respiratory Rate 16 Actual Respiratory Rate 16 Actual Respiratory Rate 16 Actual Respiratory Rate 17 Positive End Expiratory 5 Pressure Positive End Expiratory 5 Pressure Positive End Expiratory 5 Pressure Positive End Expiratory 5 Pressure Positive End Expiratory 5 Pressure Positive End Expiratory 5 Pressure Positive End Expiratory 5 Pressure Positive End Expiratory 5 Pressure Positive End Expiratory 5 Pressure Peak Inspiratory Airway 15 Pressure Peak Inspiratory Airway 16 Pressure Peak Inspiratory Airway 32 Pressure Peak Inspiratory Airway 32 Pressure Peak Inspiratory Airway 32 Pressure Peak Inspiratory Airway 44 Pressure Peak Inspiratory Airway 34 Pressure Peak Inspiratory Airway 33 Pressure Results - Laboratory Findings CBC and BMP: 12/17/16 03:14 12/17/16 03:14 ABG ABG pH 7.48 pH Units (7.32-7.45) H 12/17/16 05:15 ABG pCO2 35 mmHg (35-45) 12/17/16 05:15 ABG pO2 137 mmHg (85-104) H 12/17/16 05:15 ABG O2 Saturation 99 % (95-98) H 12/17/16 05:15 PT/INR, D-dimer PT 14.9 Seconds (9.4-12.1) H 12/15/16 05:10 Abnormal lab findings: Abnormal lab results WBC 19.3 K/mcL (4.3-11.1) H 12/17/16 03:14 RBC 3.19 M/mcL (3.82-4.97) L 12/17/16 03:14 Hgb 9.9 g/dL (11.5-15.4) L 12/17/16 03:14 Hct 30.8 % (35.3-44.9) L 12/17/16 03:14 RDW 15.5 % (11.5-14.5) H 12/17/16 03:14 Band Neutrophils % 17.0 % (0-4) H 12/15/16 05:10 Metamyelocytes % 4.0 % (0) H 12/14/16 23:35 Promyelocytes % 1.0 % (0) H 12/14/16 00:25 Neutrophils # 17.9 K/mcL (1.6-8.9) H 12/17/16 03:14 Lymphocytes # 0.5 K/mcL (0.6-4.6) L 12/17/16 03:14 Nucleated RBCs/100 WBC 0.2 /100 WBC (0) H 12/17/16 03:14 Reactive Lymphocytes Present (Not Present) A 12/13/16 15:41 Clumped Platelets Few (Not Present) A 12/14/16 00:25 Polychromasia 1+ (Not Present) A 12/13/16 15:41 PT 14.9 Seconds (9.4-12.1) H 12/15/16 05:10 ABG pH 7.48 pH Units (7.32-7.45) H 12/17/16 05:15 ABG pO2 137 mmHg (85-104) H 12/17/16 05:15 ABG Total CO2 27.2 mEq/L (20-26) H 12/17/16 05:15 ABG O2 Saturation 99 % (95-98) H 12/17/16 05:15 Chloride 111 mEq/L (98-109) H 12/17/16 03:14 BUN 28 mg/dL (7-20) H 12/17/16 03:14 BUN/Creatinine Ratio 46 (6-26) H 12/17/16 03:14 Glucose 107 mg/dL (70-99) H 12/17/16 03:14 POC Glucose 121 (58-89) H 12/16/16 23:22 AST 167 Units/L (5-34) H 12/14/16 05:44 ALT 60 Units/L (0-55) H 12/14/16 05:44 Troponin I 1.06 ng/mL (0-0.03) H* 12/14/16 05:44 B-Natriuretic Peptide 150 pg/mL (0-100) H 12/13/16 16:45 Serum Total Protein 5.5 g/dL (6.0-8.3) L 12/14/16 05:44 Albumin 2.3 g/dL (3.5-5.0) L 12/14/16 05:44 Albumin/Globulin Ratio 0.7 (1.1-2.2) L 12/14/16 05:44 Urine Color [place] (Yellow) A 12/13/16 15:06 Urine Clarity Turbid (Clear) A 12/13/16 15:06 Urine Protein 100 mg/dL (Neg-Trace) H 12/13/16 15:06 Urine Ketones 15 mg/dL (Negative) H 12/13/16 15:06 Urine Blood Large (Negative) H 12/13/16 15:06 Urine Bilirubin Moderate (Negative) H 12/13/16 15:06 Ur Leukocyte Esterase Large (Negative) H 12/13/16 15:06 Urine Microscopic RBC 50-100 per hpf (0-3) H 12/13/16 15:06 Urine Microscopic WBC 30-50 per hpf (0-3) H 12/13/16 15:06 Urine Bacteria Many per hpf (None-Few) H 12/13/16 15:06 Ur Culture Indicated? YES (NO) A 12/13/16 15:06 Stl Norovirus GI/GII PCR DETECTED (Not detect) A 12/13/16 21:44 Urine Opiates Screen Positive ng/mL (Obcaub=594) H 12/13/16 18:20 Acetaminophen < 1.0 mcg/mL (10-30) L 12/13/16 19:30 U Benzodiazepines Scrn Positive ng/mL (Xuaplb=296) H 12/13/16 18:20 U Marijuana (THC) Screen Positive ng/mL (Cutoff = 50) H 12/13/16 18:20 Staphylococcus sp PCR DETECTED (Not Detect) A 12/13/16 15:41 mecA-Methicil Res Gene DETECTED (Not Detect) A 12/13/16 15:41 - Microbiology Findings Microbiology Findings: Microbiology, Last 48 Hours 12/15/16 09:30 Blood Culture - Preliminary Central Venous Catheter No growth. 12/15/16 09:36 Blood Culture - Preliminary Peripheral Venipuncture No growth. 12/15/16 09:36 Blood Culture - Preliminary Peripheral Venipuncture No growth. 12/14/16 04:45 Sputum Culture - Final Sputum Escherichia coli - Clinical Findings Intake & Output: Intake & Output 12/16/16 12/17/16 12/17/16 23:59 07:59 15:59 Intake Total 521 / 521 652 / 652 Output Total 400 / 400 425 / 425 Balance 121 / 121 227 / 227 Weight 76.6 kg Consult Discharge Plan - Plan Referrals: NO,PCP [Primary Care Provider] - - Attending Attestation I examined this patient and my medical decision-making was reviewed with the LABELING STRATEGIST/PA/Advanced Practice Nurse/Resident Physician. I agree with the documented findings, disposition and treatment plan as described except to the extent set forth below. I spent 35min of Critical Care time with this patient. It involved decision making of high complexity to assess, manipulate, and support vital organ system failure and/or to prevent further life threatening deterioration of the patient' s condition. The time involved in the performance of separately reportable procedures was not counted toward critical care time. Patient seen and examined at bedside Labs, radiology, chart personally reviewed. All lines examined without evidence of infection. Neuropsych: Suspected Anoxic brain injury s/p ACLS. more spontaneous eye movement today but no purposeful movements. Neuro following. sedation off x 48 hours. Overall neurological prognosis remains poor. History of underlying glioblastoma has not been treated per record. Patient has underlying substance abuse and was using narcotics at time that she was found. Pulm:hypoxic respiratory failure in part caused by presumed aspiration pneumonia favorable CPAP trial today consider extubation when established if reintubation is pursued by family. Cards. Hemodynamically stable. cont tele monitoring. FEN-GI: cont PPi proxphylaxis. cont enteral feedings. remove rectal tube placed for diarrhea related to norovirus. Renal: siena resolved. cont daily monitoring of renal function ID: Patient with Escherichia coli in sputum likely secondary to aspiration treating for 7 days with cefepime stop vancomycin as no evidence of MRSA in sputum and trough has been low. Heme/Onc: Slight trend down. H/H. suspect critical illness/blood draws no over s /s of bleeding. Endo: glucose monitored and stable Integ/MSK: Skin care per ICU protocol to prevent ulcers CODE: Full code presently social work faculty member NOK (deemed most reliable and with her best interest) is Grandmother complex social social service consulted allong with palliative care for ongoing complexity of planning. <MarcoRachel Liz - Last Filed: 12/17/16 12:57> Date of Encounter: 12/17/16 Time of Encounter: 07:26 Assessment and Plan (1) Sepsis Current Visit: Yes Status: Acute upon admission, patient had tachycardia, hypotension, tachypnea, elevated WBC. 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 WBC treding down, lactic acid now normalized. legionella and strep pneumo antigen negative sputum culture grew e. coli blood culture grew staph epidermidis repeat head CT stable Plan: Continue cefepime. Will discontinue vanc as bc grew staph epidermidis, not MRSA appreciate neuro input CPAP trial today. Qualifiers: Sepsis type: sepsis due to unspecified organism Qualified Code(s): A41.9 - Sepsis, unspecified organism (2) Acute and chronic respiratory failure Current Visit: Yes Status: Acute likely secondary to aspiration pneumonia. Patient tolerating CPAP trial, has been off sedation >24hours Will consult palliative today to assist with code status discussion and planning the event the patient may need reintubation following extubation during this visit. Patient has complex family/social dynamic, SW very familiar with family and situation. Plan: CPAP trial today, plan to wean and extubate as possible after discussion with family. continue antibiotics Qualifiers: Respiratory failure complication: hypoxia Qualified Code(s): J96.21 - Acute and chronic respiratory failure with hypoxia (3) Acute renal failure Current Visit: Yes Status: Resolved Resolved Qualifiers: Acute renal failure type: unspecified Qualified Code(s): N17.9 - Acute kidney failure, unspecified (4) Altered level of consciousness Current Visit: Yes Status: Acute patient was found by mother to be unresponsive for an unknown period of time. cause unknown, but likely secondary to drug use, aspiration pneumonia, and sepsis. UDS positive for opiates, benzos, marijuana. concern for anoxic brain injury. (5) Aspiration pneumonia Current Visit: No Status: Acute CXR showed bilaterla pneumonia with chronic underlying changes. 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 Qualifiers: Aspiration pneumonia type: unspecified Laterality: bilateral Lung location: unspecified part of lung Qualified Code(s): J69.0 - Pneumonitis due to inhalation of food and vomit (6) Cardiac arrest Current Visit: Yes Status: Acute patient had episode of cardiac arrest in ED before admission to ICU. she completed hypothermic protocol yesterday. troponins downtrending echo showed LVEF 60-65% with no dysfunction. continue cardiac monitoring. 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 continue bronchodilators, steroids, antibiotics, ventilatory support. CPAP trial today. extubate if tolerated. Qualifiers: COPD type: unspecified COPD Qualified Code(s): J44.9 - Chronic obstructive pulmonary disease, unspecified (10) Norovirus Current Visit: Yes Status: Acute Rectal tube currently in place. Minimal output Plan: -Consider removal later today -bowel regimen once rectal tube removed (11) DVT prophylaxis Current Visit: Yes Status: Acute Hep SQ Neuro: Found unresponsive/AMS cause unknown - concern for drug overdose or aspiration pneumonia. UDS + opiates, benzos and marijuana. Hx glioma, substance abuse. Head CT negative, repeat is stable. Concern for possible anoxic injury s/p arrest. Sedation has been held, spontaneous eye movements, non-purposeful movements. Pulm: Acute respiratory failure likely secondary to B/L aspiration pneumonia and COPD. Sputum culture + e. Coli. Currently intubated on CPAP 5, 5. On cefepime, bronchodilators and steroids. CPAP trial today, consider extubation once wishes for reintubation established with family. Cardiac: s/p cardiac arrest, hypothermia protocol complete. RRR, normotensive. ECHO with EF of 65%, no dysfunction. stable, continue to monitor GI: Non-anion gap metabolic acidosis secondary to diarrhea from norovirus. Monitor electrolytes, on protocol. Patient receiving tube feeds, vital 50 . Remove rectal tube since stool output minimal. Renal: SIENA - Resolved. Urine culture + e. Coli, on cefepime. ID: Sepsis possibly secondary to pneumonia and UTI. Sputum and urine both growing e. Coli. Monitor vitals and labs. Continue cefepime x7 days, will discontinue vanc Heme: heparin for DVT ppx; slight downtrend in H/H, suspect secondary to sepsis , s/p cardiac arrest, blood draws. Only once daily blood draws. Endo: Q6 accuchecks, SSI and hypoglycemic protocol. Code: Full Lines: left AC IV, power glide hernandez, ET, OG, rectal Subjective Principal diagnosis: Acute respiratory failure, found unresponsive Interval history: The patient was seen and examined. No acute events overnight. She remains intubated without sedation. She has been on CPAP mode since 629. Objective PUL Vital signs: Last Vital Signs Temp 99.1 F 12/17/16 03:00 Pulse 95 12/17/16 06:38 Resp 33 12/17/16 06:38 BP 125/83 12/17/16 06:38 Pulse Ox 100 12/17/16 06:38 General appearance: other (intubated) Eyes: nonicteric ENT: oropharynx moist Neck: supple, no lymphadenopathy, no JVD Auscultation: bilateral: wheezes, rhonchi Cardiovascular: regular rate and rhythm Gastrointestinal: hypoactive bowel sounds, non-tender Integumentary: normal Extremities: no cyanosis, no edema, pulses normal, cool (b/l LE) pupils equal and round, unable to assess due to mental status, other (Patient has non-purposful eye movement, does not follow commands. Hands clenched in fists.) Ventilator Settings Ventilator Settings: Ventilator Settings, Last 8 Hours Ventilator Mode CPAP Ventilator Mode VC+ Ventilator Mode VC+ Ventilator Mode VC+ Ventilator Mode VC+ Ventilator Mode VC+ Ventilator Mode VC+ Ventilator Mode VC+ Ventilator Mode VC+ Ventilator Mode VC+ Ventilator Tidal Volume 550 Setting Ventilator Tidal Volume 550 Setting Ventilator Tidal Volume 550 Setting Ventilator Tidal Volume 550 Setting Ventilator Tidal Volume 550 Setting Ventilator Tidal Volume 550 Setting Ventilator Tidal Volume 550 Setting Ventilator Tidal Volume 550 Setting Ventilator Tidal Volume 550 Setting Ventilator Respiratory Rate 16 Setting Ventilator Respiratory Rate 16 Setting Ventilator Respiratory Rate 16 Setting Ventilator Respiratory Rate 16 Setting Ventilator Respiratory Rate 16 Setting Ventilator Respiratory Rate 16 Setting Ventilator Respiratory Rate 16 Setting Ventilator Respiratory Rate 16 Setting Ventilator Respiratory Rate 16 Setting Actual Respiratory Rate 31 Actual Respiratory Rate 16 Actual Respiratory Rate 16 Actual Respiratory Rate 16 Actual Respiratory Rate 16 Actual Respiratory Rate 16 Actual Respiratory Rate 17 Actual Respiratory Rate 16 Actual Respiratory Rate 16 Positive End Expiratory 5 Pressure Positive End Expiratory 5 Pressure Positive End Expiratory 5 Pressure Positive End Expiratory 5 Pressure Positive End Expiratory 5 Pressure Positive End Expiratory 5 Pressure Positive End Expiratory 5 Pressure Positive End Expiratory 5 Pressure Positive End Expiratory 5 Pressure Positive End Expiratory 5 Pressure Peak Inspiratory Airway 16 Pressure Peak Inspiratory Airway 32 Pressure Peak Inspiratory Airway 32 Pressure Peak Inspiratory Airway 32 Pressure Peak Inspiratory Airway 44 Pressure Peak Inspiratory Airway 34 Pressure Peak Inspiratory Airway 33 Pressure Peak Inspiratory Airway 35 Pressure Peak Inspiratory Airway 33 Pressure Results - Laboratory Findings CBC and BMP: 12/17/16 03:14 12/17/16 03:14 ABG ABG pH 7.48 pH Units (7.32-7.45) H 12/17/16 05:15 ABG pCO2 35 mmHg (35-45) 12/17/16 05:15 ABG pO2 137 mmHg (85-104) H 12/17/16 05:15 ABG O2 Saturation 99 % (95-98) H 12/17/16 05:15 PT/INR, D-dimer PT 14.9 Seconds (9.4-12.1) H 12/15/16 05:10 Abnormal lab findings: Abnormal lab results WBC 19.3 K/mcL (4.3-11.1) H 12/17/16 03:14 RBC 3.19 M/mcL (3.82-4.97) L 12/17/16 03:14 Hgb 9.9 g/dL (11.5-15.4) L 12/17/16 03:14 Hct 30.8 % (35.3-44.9) L 12/17/16 03:14 RDW 15.5 % (11.5-14.5) H 12/17/16 03:14 Band Neutrophils % 17.0 % (0-4) H 12/15/16 05:10 Metamyelocytes % 4.0 % (0) H 12/14/16 23:35 Promyelocytes % 1.0 % (0) H 12/14/16 00:25 Neutrophils # 17.9 K/mcL (1.6-8.9) H 12/17/16 03:14 Lymphocytes # 0.5 K/mcL (0.6-4.6) L 12/17/16 03:14 Nucleated RBCs/100 WBC 0.2 /100 WBC (0) H 12/17/16 03:14 Reactive Lymphocytes Present (Not Present) A 12/13/16 15:41 Clumped Platelets Few (Not Present) A 12/14/16 00:25 Polychromasia 1+ (Not Present) A 12/13/16 15:41 PT 14.9 Seconds (9.4-12.1) H 12/15/16 05:10 ABG pH 7.48 pH Units (7.32-7.45) H 12/17/16 05:15 ABG pO2 137 mmHg (85-104) H 12/17/16 05:15 ABG Total CO2 27.2 mEq/L (20-26) H 12/17/16 05:15 ABG O2 Saturation 99 % (95-98) H 12/17/16 05:15 Chloride 111 mEq/L (98-109) H 12/17/16 03:14 BUN 28 mg/dL (7-20) H 12/17/16 03:14 BUN/Creatinine Ratio 46 (6-26) H 12/17/16 03:14 Glucose 107 mg/dL (70-99) H 12/17/16 03:14 POC Glucose 121 (58-89) H 12/16/16 23:22 AST 167 Units/L (5-34) H 12/14/16 05:44 ALT 60 Units/L (0-55) H 12/14/16 05:44 Troponin I 1.06 ng/mL (0-0.03) H* 12/14/16 05:44 B-Natriuretic Peptide 150 pg/mL (0-100) H 12/13/16 16:45 Serum Total Protein 5.5 g/dL (6.0-8.3) L 12/14/16 05:44 Albumin 2.3 g/dL (3.5-5.0) L 12/14/16 05:44 Albumin/Globulin Ratio 0.7 (1.1-2.2) L 12/14/16 05:44 Urine Color [place] (Yellow) A 12/13/16 15:06 Urine Clarity Turbid (Clear) A 12/13/16 15:06 Urine Protein 100 mg/dL (Neg-Trace) H 12/13/16 15:06 Urine Ketones 15 mg/dL (Negative) H 12/13/16 15:06 Urine Blood Large (Negative) H 12/13/16 15:06 Urine Bilirubin Moderate (Negative) H 12/13/16 15:06 Ur Leukocyte Esterase Large (Negative) H 12/13/16 15:06 Urine Microscopic RBC 50-100 per hpf (0-3) H 12/13/16 15:06 Urine Microscopic WBC 30-50 per hpf (0-3) H 12/13/16 15:06 Urine Bacteria Many per hpf (None-Few) H 12/13/16 15:06 Ur Culture Indicated? YES (NO) A 12/13/16 15:06 Stl Norovirus GI/GII PCR DETECTED (Not detect) A 12/13/16 21:44 Urine Opiates Screen Positive ng/mL (Lrbqmy=416) H 12/13/16 18:20 Acetaminophen < 1.0 mcg/mL (10-30) L 12/13/16 19:30 U Benzodiazepines Scrn Positive ng/mL (Frwsec=224) H 12/13/16 18:20 U Marijuana (THC) Screen Positive ng/mL (Cutoff = 50) H 12/13/16 18:20 Staphylococcus sp PCR DETECTED (Not Detect) A 12/13/16 15:41 mecA-Methicil Res Gene DETECTED (Not Detect) A 12/13/16 15:41 - Microbiology Findings Microbiology Findings: Microbiology, Last 48 Hours 12/14/16 04:45 Sputum Culture - Final Sputum Escherichia coli - Clinical Findings Intake & Output: Intake & Output 12/16/16 12/16/16 12/17/16 15:59 23:59 07:59 Intake Total 1314 / 1314 521 / 521 652 / 652 Output Total 400 / 400 400 / 400 275 / 275 Balance 914 / 914 121 / 121 377 / 377 Weight 76.6 kg - VTE Documentation of Mechanical Device: Intermittent pneumatic compression device
[2016-12-17] MEDS: Pantoprazole 40 MG VIAL IVPB SCH (08:02)
[2016-12-17] MEDS: Chlorhexidine Rinse 15 ML MOUTHWASH MM SCH ×2 (08:02→21:07)
[2016-12-17] MEDS: Cefepime HCl 2,000 MG in D5% in Water (Mini-Bag+) 100 ML IVPB SCH ×2 (08:03→21:07)
[2016-12-17] MEDS ORDERED: Vancomycin 1,000 MG in D5% in Water 250 ML IVPB SCH (10:00)
[2016-12-17] MEDS: Budesonide/Formoterol 160/4.5 MDI IH SCH ×2 (10:05→21:40)
[2016-12-17] MEDS ORDERED: Aminoglycoside Consult 1 EACH MC ONE (13:19)
--- NOTE | 2016-12-17 15:53 | Palliative - Consult Note ---
Date of Encounter: 12/17/16 Time of Encounter: 15:50 - Assessment and Plan (1) Anoxic brain injury Current Visit: Yes Status: Acute Assessment and plan: Neurology is following. Patient has been off sedatives. Spontaneous eye opening. + gag. Breathing over vent. Does not follow commands. (2) Aspiration pneumonia Current Visit: No Status: Suspected Assessment and plan: Continues on IV antibiotic, bronchodilators, vent support and care by pulmonology. Monitor Qualifiers: Aspiration pneumonia type: unspecified Laterality: bilateral Lung location: unspecified part of lung Qualified Code(s): J69.0 - Pneumonitis due to inhalation of food and vomit (3) Acute and chronic respiratory failure Current Visit: No Status: Acute Qualifiers: Respiratory failure complication: hypoxia and hypercapnia Qualified Code(s) : J96.21 - Acute and chronic respiratory failure with hypoxia; J96.22 - Acute and chronic respiratory failure with hypercapnia (4) Cardiac arrest Current Visit: Yes Status: Acute Assessment and plan: Underwent hypothermic protocol. (5) Counseling regarding advanced care planning and goals of care Current Visit: Yes Status: Acute Assessment and plan: Complex social situation. Patient's father (Sandor) is at bedside provided information. States pt 5 children are in care of the pt grandmother, and he states pt mother "not fit to be involved". As far as known, she has not made any attempt to come and see pt since she came to hospital. Discussed that we need to meet to discuss who will be pt decision maker and discuss goals of care. Sandor will reach Pt Grandmother, and see if they can arrange childcare to make a 13-14 meeting tomorrow. D/W social service who will be present as well. Palliative-CN HPI - Data of Consult Consult date: 12/17/16 Requesting Physician: Raúl Bhatti MD Primary Care Provider: PCP NO - Consult Narrative History of present illness: Ms. Perez is a 36 year old female who was found at home unresponsive and cyanotic, and brought by EMS to hospital. She has history of asthma/COPD, brainstem glioma s/p radiation. After she arrived, she arrested and underwent ACLS with ROSC. Hypothermic protocol was initiated after arrival to ICU. She remains on treatment for aspiration pneumonia, and is still on ventilator. She has been off sedation, but neurologically appears to have anoxic brain injury. She has spontaneous eye opening, and is breathing over the vent. Neurology consult was obtained yesterday, and they have not been back as of yet today for re-evaluation. Patient's father, Sandor, and her 13y/o son, Dameon are at the bedside during my visit. Sandor describes issues with social situation, states that pt grandmother is raising pt 5 children. Sandor has custody of 2 children from his other daughter. He describes a good relationship with Elvira, pt grandmother, but states pt mother is "worthless and let her lay there all night. They should lock her up". CC: Raúl Bhatti MD Past Med Surg Social Fam HX - Past Medical History Medical history: asthma, cancer, seizures Psychiatric history: depression - Past Surgical History Surgical History: other - Social History Smoking Status: Current every day smoker Smokeless Tobacco Status: No Alcohol use: none Drug use: none Medications and Allergies Albuterol Sulfate [Albuterol Inhaler] 2 puff IH Q4HR PRN #1 unit 11/15/15 [Rx] Docusate Sodium [Dok] 250 mg PO DAILY #30 capsule 03/09/16 [Rx] Folic Acid 1 mg PO DAILY 06/17/16 [History] Simethicone [Gas-X] 80 mg PO DAILY #30 tab.chew 08/16/16 [Rx] Nystatin [Nystatin Suspension] 5 ml PO QID #120 ml 09/17/16 [Rx] Calcium Carbonate/Vitamin D3 [Calcium 500-Vit D3 200 Tablet] 1 each PO DAILY # 30 tablet 10/25/16 [Rx] Sulfamethoxazole/Trimeth DS [Bactrim DS] 1 each PO DAILY #30 tablet 10/25/16 [Rx ] Beclomethasone Diprop 80mcg [Qvar 80 mcg] 1 puff IH BID #1 aer.w.adap 11/13/16 [ Rx] Bisacodyl [Dulcolax] 5 - 10 mg PO DAILY PRN #60 tablet 11/13/16 [Rx] Dexamethasone [Decadron] 4 mg PO BID #60 tablet 11/13/16 [Rx] Famotidine [Pepcid] 20 mg PO DAILY #30 tablet 11/13/16 [Rx] ALPRAZolam [Xanax 1 MG Tablet] 1 - 2 mg PO TID PRN #126 tablet 11/23/16 [Rx] HYDROcodone/Acet 10/325 mg [Goree 10-325 mg] 1 - 2 tab PO Q4HR PRN #240 tab [Rx] Citalopram [CeleXA] 20 mg PO DAILY #30 tablet 12/04/16 [Rx] Gabapentin [Neurontin] 800 mg PO QID #120 tablet 12/04/16 [Rx] Ascorbic Acid [Vitamin C] 500 mg PO DAILY 12/13/16 [History] Ondansetron ODT [Zofran ODT] 4 mg PO Q6H PRN 12/13/16 [History] Allergies ethinyl estradiol [From Ortho Tri-Cyclen (28)] Allergy (Verified 11/01/16 23:20) Hives norgestimate [From Ortho Tri-Cyclen (28)] Allergy (Verified 11/01/16 23:20) Hives ROS unobtainable: due to endotracheal tube Palliative Care-Exam - Constitutional Vitals: Temp Pulse Resp BP Pulse Ox 99.1 F 81 31 135/85 100 12/17/16 15:35 12/17/16 14:00 12/17/16 15:35 12/17/16 14:00 12/17/16 15:35 General appearance: Present: no acute distress - Head Head Exam: Present: normal inspection, normocephalic - Respiratory Additional comments: Occasional rhonchi, Breath sounds coarse throughout. Remains on vent, 40% FIO2 , 5 PEEP. - Cardiovascular Cardiovascular exam: Present: +S1, +S2 - GI/Abdominal Exam GI/Abdominal exam: Present: normal bowel sounds, soft - Catheter Type: Urethral (Engel) - Extremities Exam Extremities exam: Present: normal capillary refill, normal inspection Additional comments: small scabbed area on shins bilaterally - Neurological Exam Additional comments: Spontaneous eye opening, no purposeful response. Does not follow commands. Breathing over vent - tolerated CPAP trial. - Skin Skin exam: Present: dry, pallor, warm Internal Medicine - CN: Reslt - Labs CBC & Chem 7: 12/17/16 03:14 12/17/16 03:14 Labs: Short CBC 12/17/16 Range/Units 03:14 WBC 19.3 H (4.3-11.1) K/mcL Hgb 9.9 L (11.5-15.4) g/dL Hct 30.8 L (35.3-44.9) % Plt Count 176 (140-400) K/mcL Neutrophils # 17.9 H (1.6-8.9) K/mcL BMP 12/17/16 03:14 Sodium 142 Potassium 3.5 Chloride 111 H Carbon Dioxide 24 BUN 28 H Creatinine 0.61 Glucose 107 H Calcium 8.7 - ABG Interpretation ABG results: ABG ABG pH 7.48 pH Units (7.32-7.45) H 12/17/16 05:15 ABG pCO2 35 mmHg (35-45) 12/17/16 05:15 ABG pO2 137 mmHg (85-104) H 12/17/16 05:15 ABG O2 Saturation 99 % (95-98) H 12/17/16 05:15 PT/INR, D-dimer PT 14.9 Seconds (9.4-12.1) H 12/15/16 05:10 Consult Discharge Plan - Plan Referrals: NO,PCP [Primary Care Provider] - Palliative Quality Palliative Quality: Screen for Code Status: NA (pt not responsive, awaiting family meeting), Screen for Goals of Care: NA, Screen for Pain: NA, If Pain Regimen Started, Initiate Bowel Regimen: NA, Screen for Nausea/Vomitting: NA Code Status: 12/13/16 18:17 Resuscitation Status: Active [RES] Routine Comment: Resuscitation Status: Full Code
--- NOTE | 2016-12-17 17:12 | Electrocardiograph Report ---
[address] [place] [address] Test Date: 2016-12-15 Pat Name: Neel Perez Department: 109 Room: [facility] Gender: F [employer] Work[employer]: : 1980 Requested By: Raúl Bhatti Order Number: [id number] Reading MD: Summer Georges Measurements Intervals [place] Rate: 61 P: 53 [place]: 148 QRS: 12 QRSD: 91 T: 5 QT: 421 QTc: 424 Interpretive Statements SINUS RHYTHM WITH SINUS ARRHYTHMIA NONSPECIFIC T-WAVE ABNORMALITY Electronically Signed On 12-17-2016 17:10:04 EDT by Summer Georges
--- NOTE | 2016-12-17 17:57 | Neurology Progress Note ---
Date of Encounter: 12/17/16 Time of Encounter: 17:52 Assessment and Plan (1) Anoxic brain injury Current Visit: Yes Status: Acute Patient's neurological examination is not improve but appears to be stabilizing. Unfortunately the longer she remains in this condition the less likely that she will have an optimal recovery. My suspicion is that she may perhaps stabilize in a persistent vegetative state. She is not however locked in. Further prognostication in the coming days after she is extubated. All the above was discussed with loved ones. There is a contentious relationship between many of those present. Security is alerted and is now present. I will follow peripherally. Prognosis for full recovery in my opinion is poor time spent in the intensive care unit today reviewing the medical records, discussing matters with nursing staff and patient's family along with coordinating critical care was 40 minutes. Subjective Principal diagnosis: Acute respiratory failure, found unresponsive Interval history: The chart was reviewed, the patient was seen and examined. Case was discussed with nursing as well as with family. Patient from a neurologic perspective remains relatively unchanged. She does have spontaneous eye opening to various types of external stimuli. However she does not fixate, she does not follow commands. She does not follow commands with her eyes either therefore this is not a locked-in type syndrome. She does have roving eye movements. She also has intact blink reflexes. She is breathing above the ventilator.however her level of consciousness is not improved after day #4. She is not on sedation. Objective - Constitutional Vitals: Temp Pulse Resp BP Pulse Ox 99.1 F 58 23 148/86 100 12/17/16 15:35 12/17/16 16:00 12/17/16 16:00 12/17/16 16:00 12/17/16 16:00 - Neurological Exam Additional comments: As stated in the history of present illness. Brainstem reflexes are fairly well preserved. However higher cortical functions are impaired. She is not following commands, she is not fixating when she opens her eyes. No involuntary movements are identified. Bilateral Babinskis remain. - VTE Documentation of Mechanical Device: Intermittent pneumatic compression device Results - Laboratory Findings CBC and BMP: 12/17/16 03:14 12/17/16 03:14 Abnormal lab findings: Abnormal lab results WBC 19.3 K/mcL (4.3-11.1) H 12/17/16 03:14 RBC 3.19 M/mcL (3.82-4.97) L 12/17/16 03:14 Hgb 9.9 g/dL (11.5-15.4) L 12/17/16 03:14 Hct 30.8 % (35.3-44.9) L 12/17/16 03:14 RDW 15.5 % (11.5-14.5) H 12/17/16 03:14 Band Neutrophils % 17.0 % (0-4) H 12/15/16 05:10 Metamyelocytes % 4.0 % (0) H 12/14/16 23:35 Promyelocytes % 1.0 % (0) H 12/14/16 00:25 Neutrophils # 17.9 K/mcL (1.6-8.9) H 12/17/16 03:14 Lymphocytes # 0.5 K/mcL (0.6-4.6) L 12/17/16 03:14 Nucleated RBCs/100 WBC 0.2 /100 WBC (0) H 12/17/16 03:14 Reactive Lymphocytes Present (Not Present) A 12/13/16 15:41 Clumped Platelets Few (Not Present) A 12/14/16 00:25 Polychromasia 1+ (Not Present) A 12/13/16 15:41 PT 14.9 Seconds (9.4-12.1) H 12/15/16 05:10 ABG pH 7.48 pH Units (7.32-7.45) H 12/17/16 05:15 ABG pO2 137 mmHg (85-104) H 12/17/16 05:15 ABG Total CO2 27.2 mEq/L (20-26) H 12/17/16 05:15 ABG O2 Saturation 99 % (95-98) H 12/17/16 05:15 Chloride 111 mEq/L (98-109) H 12/17/16 03:14 BUN 28 mg/dL (7-20) H 12/17/16 03:14 BUN/Creatinine Ratio 46 (6-26) H 12/17/16 03:14 Glucose 107 mg/dL (70-99) H 12/17/16 03:14 POC Glucose 121 (58-89) H 12/16/16 23:22 AST 167 Units/L (5-34) H 12/14/16 05:44 ALT 60 Units/L (0-55) H 12/14/16 05:44 Troponin I 1.06 ng/mL (0-0.03) H* 12/14/16 05:44 B-Natriuretic Peptide 150 pg/mL (0-100) H 12/13/16 16:45 Serum Total Protein 5.5 g/dL (6.0-8.3) L 12/14/16 05:44 Albumin 2.3 g/dL (3.5-5.0) L 12/14/16 05:44 Albumin/Globulin Ratio 0.7 (1.1-2.2) L 12/14/16 05:44 Urine Color Butterfield (Yellow) A 12/13/16 15:06 Urine Clarity Turbid (Clear) A 12/13/16 15:06 Urine Protein 100 mg/dL (Neg-Trace) H 12/13/16 15:06 Urine Ketones 15 mg/dL (Negative) H 12/13/16 15:06 Urine Blood Large (Negative) H 12/13/16 15:06 Urine Bilirubin Moderate (Negative) H 12/13/16 15:06 Ur Leukocyte Esterase Large (Negative) H 12/13/16 15:06 Urine Microscopic RBC 50-100 per hpf (0-3) H 12/13/16 15:06 Urine Microscopic WBC 30-50 per hpf (0-3) H 12/13/16 15:06 Urine Bacteria Many per hpf (None-Few) H 12/13/16 15:06 Ur Culture Indicated? YES (NO) A 12/13/16 15:06 Stl Norovirus GI/GII PCR DETECTED (Not detect) A 12/13/16 21:44 Urine Opiates Screen Positive ng/mL (Bnwsug=209) H 12/13/16 18:20 Acetaminophen < 1.0 mcg/mL (10-30) L 12/13/16 19:30 U Benzodiazepines Scrn Positive ng/mL (Ilblmc=756) H 12/13/16 18:20 U Marijuana (THC) Screen Positive ng/mL (Cutoff = 50) H 12/13/16 18:20 Staphylococcus sp PCR DETECTED (Not Detect) A 12/13/16 15:41 mecA-Methicil Res Gene DETECTED (Not Detect) A 12/13/16 15:41 Consult Discharge Plan - Plan Referrals: NO,PCP [Primary Care Provider] -
[2016-12-18] MEDS: Insulin LISPRO 300 UNITS/3 ML VIAL SQ SCH ×5 (00:01→23:48)
[2016-12-18] MEDS: Ipratropium/Albuterol Neb 3 ML IH SCH ×4 (03:16→21:41)
[2016-12-18 03:41] LABS: Hematocrit 28.9 % (35.3-44.9); Hemoglobin 9.4 g/dL (11.5-15.4); Immature Granulocytes % 0.9 % (0-4); Lymphocytes # 0.6 K/mcL (0.6-4.6); Lymphocytes % 4.7 %; Mean Corpuscular HGB Conc 32.5 g/dL (31.6-35.5); Mean Corpuscular Hemoglobin 31.1 pg (28.0-33.3); Mean Corpuscular Volume 95.7 fL (83.0-100.0); Mean Platelet Volume 10.9 fL (9.4-12.4); Monocytes # 0.5 K/mcL (0.0-1.3); Monocytes % 4.3 %; Neutrophils # 10.4 K/mcL (1.6-8.9); Platelet Count 178 K/mcL (140-400); Red Blood Count 3.02 M/mcL (3.82-4.97); Red Cell Distribution Width 15.4 % (11.5-14.5); Segmented Neutrophils % 90.1 %
[2016-12-18 03:44] LABS: Ionized Calcium 1.15 mmol/L (1.15-1.35)
[2016-12-18 03:52] LABS: BUN/Creatinine Ratio 48 (6-26); Blood Urea Nitrogen 29 mg/dL (7-20); Calcium 8.9 mg/dL (8.6-10.8); Carbon Dioxide 22 mEq/L (19-29); Chloride 113 mEq/L (98-109); Glucose 103 mg/dL (70-99); Magnesium 2.2 mg/dL (1.6-2.6); Osmolality,Calculated 304 (280-300); Potassium 3.5 mEq/L (3.5-4.5); Sodium 144 mEq/L (136-145); eGFR For African Americans > 60 (> 60); eGFR For Non-African Americans > 60 (> 60)
[2016-12-18] MEDS: Lacri-Lube 3.5 GM TUBE BOTH EYES SCH ×7 (04:10→23:48)
[2016-12-18] MEDS: *HR* Heparin 5,000 UNIT/ML VIAL SQ SCH ×3 (06:21→21:56)
[2016-12-18] MEDS: methylPREDNISolone 125 MG/2 ML VIAL IVP SCH ×2 (06:21)
--- NOTE | 2016-12-18 07:07 | Pulmonology Progress Note ---
<Rachel Lara - Last Filed: 12/18/16 10:54> Date of Encounter: 12/18/16 Time of Encounter: 07:07 Assessment and Plan (1) Sepsis Current Visit: Yes Status: Acute Upon admission, patient had tachycardia, hypotension, tachypnea, elevated WBC. 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 WBC treding down, lactic acid now normalized. Legionella and strep pneumo antigen negative Sputum culture and urine culture grew e. coli Blood culture grew staph epidermidis repeat head CT 12/16 stable The patient's level of consciousness has not improved since admission, neuro has examined the patient and feels that the patient is not locked in and has a poor prognosis. Patient has been tolerating CPAP mode on the ventilator this morning, has been off of sedation for >48 hours Care conference planned for today with family to discuss code status and plans for potential reintubation once patient is extubated. Plan: -Continue cefepime day 12/19 -CPAP trial today -Care conference today -appreciate neuro input Qualifiers: Sepsis type: sepsis due to unspecified organism Qualified Code(s): A41.9 - Sepsis, unspecified organism (2) Acute and chronic respiratory failure Current Visit: Yes Status: Acute Likely secondary to aspiration pneumonia. Patient tolerating CPAP trial, has been off sedation >24hours Care conference today to discuss code status and family wishes in the event the patient may need reintubation following extubation during this visit. Patient has complex family/social dynamic, SW very familiar with family and situation. Plan: -CPAP trial today, plan to wean and extubate as possible after discussion with family. -Continue antibiotics Qualifiers: Respiratory failure complication: hypoxia Qualified Code(s): J96.21 - Acute and chronic respiratory failure with hypoxia (3) Acute renal failure Current Visit: Yes Status: Resolved Resolved Qualifiers: Acute renal failure type: unspecified Qualified Code(s): N17.9 - Acute kidney failure, unspecified (4) Altered level of consciousness Current Visit: Yes Status: Acute Patient was found by mother and daughter to be unresponsive for an unknown period of time. Cause unknown, but likely secondary to drug use, aspiration pneumonia, and sepsis. UDS positive for opiates, benzos, marijuana. Concern for anoxic brain injury. (5) Aspiration pneumonia Current Visit: No Status: Acute CXR showed bilaterla pneumonia with chronic underlying changes. 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 Plan: -Continue cefepime Qualifiers: Aspiration pneumonia type: unspecified Laterality: bilateral Lung location: unspecified part of lung Qualified Code(s): J69.0 - Pneumonitis due to inhalation of food and vomit (6) Cardiac arrest Current Visit: Yes Status: Acute Patient had episode of cardiac arrest in ED before admission to ICU. She completed hypothermic protocol yesterday. Echo showed LVEF 60-65% with no dysfunction. HR labile, 100-50 Plan: -Continue cardiac monitoring. 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 Continue bronchodilators, steroids, antibiotics, ventilatory support. Plan: -CPAP trial today. extubate if tolerated. Qualifiers: COPD type: unspecified COPD Qualified Code(s): J44.9 - Chronic obstructive pulmonary disease, unspecified (10) Norovirus Current Visit: Yes Status: Acute Resolved, rectal tube removed yesterday. (11) DVT prophylaxis Current Visit: Yes Status: Acute Hep SQ Neuro: Found unresponsive/AMS cause unknown - concern for drug overdose or aspiration pneumonia. UDS + opiates, benzos and marijuana. Hx glioma, substance abuse. Head CT negative, repeat is stable. Concern for possible anoxic injury s/p arrest. Sedation has been held 48 hours, spontaneous eye movements, non-purposeful movements. Pulm: Acute respiratory failure likely secondary to B/L aspiration pneumonia and COPD. Sputum culture + e. Coli. Currently intubated on CPAP setting, tolerating and breathing above settings. On cefepime, bronchodilators and steroids. CPAP trial today, consider extubation once wishes for reintubation established with family. Day 5 of solumedrol. Patient takes decadron 4mg BID. Will stop solumedrol, switch to decadron 4mgIV BID. Cardiac: s/p cardiac arrest, hypothermia protocol complete. RRR, normotensive. HR more labile today, 50-100. ECHO with EF of 65%, no dysfunction. stable, continue to monitor GI: Non-anion gap metabolic acidosis secondary to diarrhea from norovirus which has resolved, rectal tube removed. Patient receiving tube feeds, vital 50 . Renal: SIENA - Resolved. Urine culture + e. Coli, on cefepime. Phosphate 2.0, will replace with KPhos 22meq. ID: Sepsis possibly secondary to pneumonia and UTI. Sputum and urine both growing e. Coli. Monitor vitals and labs. Continue cefepime x7 days, will discontinue vanc Heme: heparin for DVT ppx; slight downtrend in H/H, suspect secondary to sepsis , s/p cardiac arrest, blood draws. Only once daily blood draws. Endo: Q6 accuchecks, SSI and hypoglycemic protocol. Code: Full Lines: Power glide, hernandez, ET, OG Subjective Principal diagnosis: Acute respiratory failure, found unresponsive Interval history: The patient was seen and examined. She remains intubated without sedation. No acute events overnight. Her mother and father got into an argument while Dr. Lott was discussing patient prognosis yesterday and security had to be called. The patient has been on CPAP mode since 619. Objective PUL Vital signs: Last Vital Signs Temp 99.6 F 12/18/16 04:00 Pulse 50 12/18/16 06:00 Resp 20 12/18/16 06:20 BP 131/85 12/18/16 06:20 Pulse Ox 100 12/18/16 06:20 General appearance: other (intubated) Eyes: nonicteric ENT: oropharynx moist Neck: supple, no lymphadenopathy, no JVD Auscultation: bilateral: rales Cardiovascular: regular rate and rhythm Gastrointestinal: normoactive bowel sounds, soft, non-tender Integumentary: normal Extremities: no cyanosis, no edema, cool (b/l LE) pupils equal and round, other (spontaneous eye opening to physical stimuli, eyes do not fixate, patient doesn't follow commands. spontaneous eye movement. Blink reflex intact. Babinski + b/l) Ventilator Settings Ventilator Settings: Ventilator Settings, Last 8 Hours Ventilator Mode CPAP Ventilator Mode VC+ Ventilator Mode VC+ Ventilator Mode VC+ Ventilator Mode VC+ Ventilator Mode VC+ Ventilator Mode VC+ Ventilator Mode VC+ Ventilator Mode VC+ Ventilator Mode VC+ Ventilator Mode VC+ Ventilator Tidal Volume 550 Setting Ventilator Tidal Volume 550 Setting Ventilator Tidal Volume 550 Setting Ventilator Tidal Volume 550 Setting Ventilator Tidal Volume 550 Setting Ventilator Tidal Volume 550 Setting Ventilator Tidal Volume 550 Setting Ventilator Tidal Volume 550 Setting Ventilator Tidal Volume 550 Setting Ventilator Tidal Volume 550 Setting Ventilator Respiratory Rate 16 Setting Ventilator Respiratory Rate 16 Setting Ventilator Respiratory Rate 16 Setting Ventilator Respiratory Rate 16 Setting Ventilator Respiratory Rate 16 Setting Ventilator Respiratory Rate 16 Setting Ventilator Respiratory Rate 16 Setting Ventilator Respiratory Rate 16 Setting Ventilator Respiratory Rate 16 Setting Ventilator Respiratory Rate 16 Setting Actual Respiratory Rate 20 Actual Respiratory Rate 16 Actual Respiratory Rate 27 Actual Respiratory Rate 16 Actual Respiratory Rate 16 Actual Respiratory Rate 18 Actual Respiratory Rate 16 Actual Respiratory Rate 16 Actual Respiratory Rate 16 Actual Respiratory Rate 16 Actual Respiratory Rate 16 Positive End Expiratory 5 Pressure Positive End Expiratory 5 Pressure Positive End Expiratory 5 Pressure Positive End Expiratory 5 Pressure Positive End Expiratory 5 Pressure Positive End Expiratory 5 Pressure Positive End Expiratory 5 Pressure Positive End Expiratory 5 Pressure Positive End Expiratory 5 Pressure Positive End Expiratory 5 Pressure Positive End Expiratory 5 Pressure Peak Inspiratory Airway 14 Pressure Peak Inspiratory Airway 34 Pressure Peak Inspiratory Airway 37 Pressure Peak Inspiratory Airway 28 Pressure Peak Inspiratory Airway 33 Pressure Peak Inspiratory Airway 35 Pressure Peak Inspiratory Airway 31 Pressure Peak Inspiratory Airway 31 Pressure Peak Inspiratory Airway 35 Pressure Results - Laboratory Findings CBC and BMP: 12/18/16 03:30 12/18/16 03:30 ABG ABG pH 7.48 pH Units (7.32-7.45) H 12/17/16 05:15 ABG pCO2 35 mmHg (35-45) 12/17/16 05:15 ABG pO2 137 mmHg (85-104) H 12/17/16 05:15 ABG O2 Saturation 99 % (95-98) H 12/17/16 05:15 PT/INR, D-dimer PT 14.9 Seconds (9.4-12.1) H 12/15/16 05:10 Abnormal lab findings: Abnormal lab results WBC 11.6 K/mcL (4.3-11.1) H 12/18/16 03:30 RBC 3.02 M/mcL (3.82-4.97) L 12/18/16 03:30 Hgb 9.4 g/dL (11.5-15.4) L 12/18/16 03:30 Hct 28.9 % (35.3-44.9) L 12/18/16 03:30 RDW 15.4 % (11.5-14.5) H 12/18/16 03:30 Band Neutrophils % 17.0 % (0-4) H 12/15/16 05:10 Metamyelocytes % 4.0 % (0) H 12/14/16 23:35 Promyelocytes % 1.0 % (0) H 12/14/16 00:25 Neutrophils # 10.4 K/mcL (1.6-8.9) H 12/18/16 03:30 Nucleated RBCs/100 WBC 0.2 /100 WBC (0) H 12/17/16 03:14 Reactive Lymphocytes Present (Not Present) A 12/13/16 15:41 Clumped Platelets Few (Not Present) A 12/14/16 00:25 Polychromasia 1+ (Not Present) A 12/13/16 15:41 PT 14.9 Seconds (9.4-12.1) H 12/15/16 05:10 ABG pH 7.48 pH Units (7.32-7.45) H 12/17/16 05:15 ABG pO2 137 mmHg (85-104) H 12/17/16 05:15 ABG Total CO2 27.2 mEq/L (20-26) H 12/17/16 05:15 ABG O2 Saturation 99 % (95-98) H 12/17/16 05:15 Chloride 113 mEq/L (98-109) H 12/18/16 03:30 BUN 29 mg/dL (7-20) H 12/18/16 03:30 BUN/Creatinine Ratio 48 (6-26) H 12/18/16 03:30 Glucose 103 mg/dL (70-99) H 12/18/16 03:30 POC Glucose 159 (58-89) H 12/17/16 23:40 Calculated Osmolality 304 (280-300) H 12/18/16 03:30 Phosphorus 2.0 mg/dL (2.3-4.7) L 12/18/16 03:30 AST 167 Units/L (5-34) H 12/14/16 05:44 ALT 60 Units/L (0-55) H 12/14/16 05:44 Troponin I 1.06 ng/mL (0-0.03) H* 12/14/16 05:44 B-Natriuretic Peptide 150 pg/mL (0-100) H 12/13/16 16:45 Serum Total Protein 5.5 g/dL (6.0-8.3) L 12/14/16 05:44 Albumin 2.3 g/dL (3.5-5.0) L 12/14/16 05:44 Albumin/Globulin Ratio 0.7 (1.1-2.2) L 12/14/16 05:44 Urine Color [place] (Yellow) A 12/13/16 15:06 Urine Clarity Turbid (Clear) A 12/13/16 15:06 Urine Protein 100 mg/dL (Neg-Trace) H 12/13/16 15:06 Urine Ketones 15 mg/dL (Negative) H 12/13/16 15:06 Urine Blood Large (Negative) H 12/13/16 15:06 Urine Bilirubin Moderate (Negative) H 12/13/16 15:06 Ur Leukocyte Esterase Large (Negative) H 12/13/16 15:06 Urine Microscopic RBC 50-100 per hpf (0-3) H 12/13/16 15:06 Urine Microscopic WBC 30-50 per hpf (0-3) H 12/13/16 15:06 Urine Bacteria Many per hpf (None-Few) H 12/13/16 15:06 Ur Culture Indicated? YES (NO) A 12/13/16 15:06 Stl Norovirus GI/GII PCR DETECTED (Not detect) A 12/13/16 21:44 Urine Opiates Screen Positive ng/mL (Dvfqyn=131) H 12/13/16 18:20 Acetaminophen < 1.0 mcg/mL (10-30) L 12/13/16 19:30 U Benzodiazepines Scrn Positive ng/mL (Fyuitx=306) H 12/13/16 18:20 U Marijuana (THC) Screen Positive ng/mL (Cutoff = 50) H 12/13/16 18:20 Staphylococcus sp PCR DETECTED (Not Detect) A 12/13/16 15:41 mecA-Methicil Res Gene DETECTED (Not Detect) A 12/13/16 15:41 - Microbiology Findings Microbiology Findings: Microbiology, Last 48 Hours 12/15/16 09:30 Blood Culture - Preliminary Central Venous Catheter No growth. 12/15/16 09:36 Blood Culture - Preliminary Peripheral Venipuncture No growth. 12/15/16 09:36 Blood Culture - Preliminary Peripheral Venipuncture No growth. 12/14/16 04:45 Sputum Culture - Final Sputum Escherichia coli - Clinical Findings Intake & Output: Intake & Output 12/17/16 12/17/16 12/18/16 15:59 23:59 07:59 Intake Total 371 / 371 297 / 297 331 / 331 Output Total 475 / 475 200 / 200 375 / 375 Balance -104 / -104 97 / 97 -44 / -44 Weight 75.251 kg - VTE Documentation of Mechanical Device: Intermittent pneumatic compression device Consult Discharge Plan - Plan Referrals: NO,PCP [Non-Partnered Physician] - <Vega Horton - Last Filed: 12/18/16 11:28> Date of Encounter: 12/18/16 Objective PUL Vital signs: Last Vital Signs Temp 99.6 F 12/18/16 04:00 Pulse 90 12/18/16 09:00 Resp 28 12/18/16 09:00 BP 135/98 12/18/16 09:00 Pulse Ox 100 12/18/16 09:00 Ventilator Settings Ventilator Settings: Ventilator Settings, Last 8 Hours Ventilator Mode CPAP Ventilator Mode CPAP Ventilator Mode CPAP Ventilator Mode CPAP Ventilator Mode CPAP Ventilator Mode CPAP Ventilator Mode VC+ Ventilator Mode VC+ Ventilator Mode VC+ Ventilator Mode VC+ Ventilator Mode VC+ Ventilator Mode VC+ Ventilator Tidal Volume 550 Setting Ventilator Tidal Volume 550 Setting Ventilator Tidal Volume 550 Setting Ventilator Tidal Volume 550 Setting Ventilator Tidal Volume 550 Setting Ventilator Tidal Volume 550 Setting Ventilator Tidal Volume 550 Setting Ventilator Tidal Volume 550 Setting Ventilator Tidal Volume 550 Setting Ventilator Tidal Volume 550 Setting Ventilator Respiratory Rate 16 Setting Ventilator Respiratory Rate 16 Setting Ventilator Respiratory Rate 16 Setting Ventilator Respiratory Rate 16 Setting Ventilator Respiratory Rate 16 Setting Ventilator Respiratory Rate 16 Setting Ventilator Respiratory Rate 16 Setting Ventilator Respiratory Rate 16 Setting Actual Respiratory Rate 28 Actual Respiratory Rate 18 Actual Respiratory Rate 21 Actual Respiratory Rate 28 Actual Respiratory Rate 19 Actual Respiratory Rate 20 Actual Respiratory Rate 16 Actual Respiratory Rate 27 Actual Respiratory Rate 16 Actual Respiratory Rate 16 Actual Respiratory Rate 18 Actual Respiratory Rate 16 Positive End Expiratory 5 Pressure Positive End Expiratory 5 Pressure Positive End Expiratory 5 Pressure Positive End Expiratory 5 Pressure Positive End Expiratory 5 Pressure Positive End Expiratory 5 Pressure Positive End Expiratory 5 Pressure Positive End Expiratory 5 Pressure Positive End Expiratory 5 Pressure Positive End Expiratory 5 Pressure Positive End Expiratory 5 Pressure Positive End Expiratory 5 Pressure Peak Inspiratory Airway 15 Pressure Peak Inspiratory Airway 14 Pressure Peak Inspiratory Airway 34 Pressure Peak Inspiratory Airway 37 Pressure Peak Inspiratory Airway 28 Pressure Peak Inspiratory Airway 33 Pressure Results - Laboratory Findings CBC and BMP: 12/18/16 03:30 12/18/16 03:30 ABG ABG pH 7.48 pH Units (7.32-7.45) H 12/17/16 05:15 ABG pCO2 35 mmHg (35-45) 12/17/16 05:15 ABG pO2 137 mmHg (85-104) H 12/17/16 05:15 ABG O2 Saturation 99 % (95-98) H 12/17/16 05:15 PT/INR, D-dimer PT 14.9 Seconds (9.4-12.1) H 12/15/16 05:10 Abnormal lab findings: Abnormal lab results WBC 11.6 K/mcL (4.3-11.1) H 12/18/16 03:30 RBC 3.02 M/mcL (3.82-4.97) L 12/18/16 03:30 Hgb 9.4 g/dL (11.5-15.4) L 12/18/16 03:30 Hct 28.9 % (35.3-44.9) L 12/18/16 03:30 RDW 15.4 % (11.5-14.5) H 12/18/16 03:30 Band Neutrophils % 17.0 % (0-4) H 12/15/16 05:10 Metamyelocytes % 4.0 % (0) H 12/14/16 23:35 Promyelocytes % 1.0 % (0) H 12/14/16 00:25 Neutrophils # 10.4 K/mcL (1.6-8.9) H 12/18/16 03:30 Nucleated RBCs/100 WBC 0.2 /100 WBC (0) H 12/17/16 03:14 Reactive Lymphocytes Present (Not Present) A 12/13/16 15:41 Clumped Platelets Few (Not Present) A 12/14/16 00:25 Polychromasia 1+ (Not Present) A 12/13/16 15:41 PT 14.9 Seconds (9.4-12.1) H 12/15/16 05:10 ABG pH 7.48 pH Units (7.32-7.45) H 12/17/16 05:15 ABG pO2 137 mmHg (85-104) H 12/17/16 05:15 ABG Total CO2 27.2 mEq/L (20-26) H 12/17/16 05:15 ABG O2 Saturation 99 % (95-98) H 12/17/16 05:15 Chloride 113 mEq/L (98-109) H 12/18/16 03:30 BUN 29 mg/dL (7-20) H 12/18/16 03:30 BUN/Creatinine Ratio 48 (6-26) H 12/18/16 03:30 Glucose 103 mg/dL (70-99) H 12/18/16 03:30 POC Glucose 159 (58-89) H 12/17/16 23:40 Calculated Osmolality 304 (280-300) H 12/18/16 03:30 Phosphorus 2.0 mg/dL (2.3-4.7) L 12/18/16 03:30 AST 167 Units/L (5-34) H 12/14/16 05:44 ALT 60 Units/L (0-55) H 12/14/16 05:44 Troponin I 1.06 ng/mL (0-0.03) H* 12/14/16 05:44 B-Natriuretic Peptide 150 pg/mL (0-100) H 12/13/16 16:45 Serum Total Protein 5.5 g/dL (6.0-8.3) L 12/14/16 05:44 Albumin 2.3 g/dL (3.5-5.0) L 12/14/16 05:44 Albumin/Globulin Ratio 0.7 (1.1-2.2) L 12/14/16 05:44 Urine Color [place] (Yellow) A 12/13/16 15:06 Urine Clarity Turbid (Clear) A 12/13/16 15:06 Urine Protein 100 mg/dL (Neg-Trace) H 12/13/16 15:06 Urine Ketones 15 mg/dL (Negative) H 12/13/16 15:06 Urine Blood Large (Negative) H 12/13/16 15:06 Urine Bilirubin Moderate (Negative) H 12/13/16 15:06 Ur Leukocyte Esterase Large (Negative) H 12/13/16 15:06 Urine Microscopic RBC 50-100 per hpf (0-3) H 12/13/16 15:06 Urine Microscopic WBC 30-50 per hpf (0-3) H 12/13/16 15:06 Urine Bacteria Many per hpf (None-Few) H 12/13/16 15:06 Ur Culture Indicated? YES (NO) A 12/13/16 15:06 Stl Norovirus GI/GII PCR DETECTED (Not detect) A 12/13/16 21:44 Urine Opiates Screen Positive ng/mL (Qobvix=327) H 12/13/16 18:20 Acetaminophen < 1.0 mcg/mL (10-30) L 12/13/16 19:30 U Benzodiazepines Scrn Positive ng/mL (Pifmts=824) H 12/13/16 18:20 U Marijuana (THC) Screen Positive ng/mL (Cutoff = 50) H 12/13/16 18:20 Staphylococcus sp PCR DETECTED (Not Detect) A 12/13/16 15:41 mecA-Methicil Res Gene DETECTED (Not Detect) A 12/13/16 15:41 - Microbiology Findings Microbiology Findings: Microbiology, Last 48 Hours 12/15/16 09:30 Blood Culture - Preliminary Central Venous Catheter No growth. 12/15/16 09:36 Blood Culture - Preliminary Peripheral Venipuncture No growth. 12/15/16 09:36 Blood Culture - Preliminary Peripheral Venipuncture No growth. - Clinical Findings Intake & Output: Intake & Output 12/17/16 12/18/16 12/18/16 23:59 07:59 15:59 Intake Total 297 / 297 492 / 492 Output Total 200 / 200 375 / 375 Balance 97 / 97 117 / 117 Weight 75.251 kg - Attending Attestation I examined this patient and my medical decision-making was reviewed with the PLACEMENT OFFICER/PA/Advanced Practice Nurse/Resident Physician. I agree with the documented findings, disposition and treatment plan as described except to the extent set forth below. Patient seen and examined at bedside Labs, radiology, chart personally reviewed. All lines examined without evidence of infection. Neuropsych: Suspected Anoxic brain injury s/t hypoxia s/p ACLS. more spontaneous eye movement today but no purposeful movements. continues off sedation. Poor prognosis for meaningful neurological recovery per Neuro assessment. Cont steroids for glioblastoma (chronic use) Pulm:hypoxic respiratory failure in part caused by presumed aspiration pneumonia with underlying COPD per history. Favorable CPAP trial today consider extubation when family agrees to proceed. cont bronchodilators. Cards. Hemodynamically stable. cont tele monitoring. FEN-GI: cont PPi proxphylaxis. cont enteral nutrition (at goal). start bowel regimen Renal: siena resolved. cont daily monitoring of renal function ID: Patient with Escherichia coli in sputum likely secondary to aspiration treating for 7 days with cefepime Heme/Onc: Anemia stable H/H. suspect critical illness/blood draws no over s/s of bleeding. Cont DVT prophylaxis Endo: glucose monitored and stable Integ/MSK: Skin care per ICU protocol to prevent ulcers CODE: Full code presently have had extensive conversation with the patient's father along with palliative care service and social work team this is an extremely complex family situation where the patient's mother also suffers from drug abuse and home environment for the patient's children is very unstable at best. It appears that the patient's father is the most reliable member of her next to can that has her best interests at heart given that there is strong suspicion that mother may have contributed to or at least been a part of use of illicit substances at time patient was found. In addition there is a grandmother to the patient who wants to come and evaluate the patient for herself and the father has asked that we withhold extubation until grandmother has a chance to come and be a part of this conversation which is very reasonable. I explained that my professional opinion at this point was a patient would be in a prolonged "vegetative" state and be reliant on medical care in a long-term facility. At present they want everything done including cardiopulmonary resuscitation and we will continue to address goals of care on a daily basis as warranted.
[2016-12-18] MEDS: Pantoprazole 40 MG VIAL IVPB SCH (08:54)
[2016-12-18] MEDS: Chlorhexidine Rinse 15 ML MOUTHWASH MM SCH ×2 (08:54→20:25)
[2016-12-18] MEDS: Cefepime HCl 2,000 MG in D5% in Water (Mini-Bag+) 100 ML IVPB SCH ×2 (08:54→20:26)
[2016-12-18] MEDS: Budesonide/Formoterol 160/4.5 MDI IH SCH ×2 (10:51→21:41)
[2016-12-18] MEDS: Dexamethasone 4 MG/ML VIAL IVP SCH (20:25)
[2016-12-19] MEDS: Ipratropium/Albuterol Neb 3 ML IH SCH ×4 (03:36→21:30)
[2016-12-19] MEDS: Lacri-Lube 3.5 GM TUBE BOTH EYES SCH ×5 (03:50→21:09)
[2016-12-19 03:52] LABS: Basophils % 0.1 %; Hematocrit 28.3 % (35.3-44.9); Hemoglobin 9.2 g/dL (11.5-15.4); Lymphocytes # 0.7 K/mcL (0.6-4.6); Lymphocytes % 6.8 %; Mean Corpuscular HGB Conc 32.5 g/dL (31.6-35.5); Mean Corpuscular Hemoglobin 30.9 pg (28.0-33.3); Mean Platelet Volume 10.6 fL (9.4-12.4); Monocytes # 0.9 K/mcL (0.0-1.3); Monocytes % 8.7 %; Neutrophils # 8.5 K/mcL (1.6-8.9); Nucleated Red Blood Cells 0.4 /100 WBC (0); Platelet Count 198 K/mcL (140-400); Red Blood Count 2.98 M/mcL (3.82-4.97); Red Cell Distribution Width 15.1 % (11.5-14.5); Segmented Neutrophils % 83.4 %
[2016-12-19 04:04] LABS: BUN/Creatinine Ratio 42 (6-26); Blood Urea Nitrogen 25 mg/dL (7-20); Carbon Dioxide 26 mEq/L (19-29); Chloride 110 mEq/L (98-109); Glucose 104 mg/dL (70-99); Magnesium 1.9 mg/dL (1.6-2.6); Osmolality,Calculated 305 (280-300); Potassium 3.5 mEq/L (3.5-4.5); Sodium 145 mEq/L (136-145); eGFR For African Americans > 60 (> 60); eGFR For Non-African Americans > 60 (> 60)
[2016-12-19] MEDS: Insulin LISPRO 300 UNITS/3 ML VIAL SQ SCH ×3 (05:58→19:00)
[2016-12-19] MEDS: *HR* Heparin 5,000 UNIT/ML VIAL SQ SCH ×3 (05:58→21:05)
--- NOTE | 2016-12-19 06:43 | Pulmonology Progress Note ---
<Rachel Lara - Last Filed: 12/19/16 11:49> Date of Encounter: 12/19/16 Time of Encounter: 06:43 Assessment and Plan (1) Sepsis Current Visit: Yes Status: Acute Upon admission, patient had tachycardia, hypotension, tachypnea, elevated WBC. 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 WBC normalized. Legionella and strep pneumo antigen negative Sputum culture and urine culture grew e. coli Blood culture grew staph epidermidis repeat head CT 12/16 stable The patient's level of consciousness has not improved since admission, neuro has examined the patient and feels that the patient is not locked in and has a poor prognosis. Patient has been tolerating CPAP mode on the ventilator this morning, has been off of sedation for >72 hours Care conference planned for with family to discuss code status and plans for potential reintubation once patient is extubated. Plan: -Cefepime day 01/18, will stop -CPAP trial today -Care conference -appreciate neuro input Qualifiers: Sepsis type: Escherichia coli Qualified Code(s): A41.51 - Sepsis due to Escherichia coli [E. coli] (2) Acute and chronic respiratory failure Current Visit: Yes Status: Acute Likely secondary to aspiration pneumonia. Patient tolerating CPAP trial, has been off sedation >24hours Care conference today to discuss code status and family wishes in the event the patient may need reintubation following extubation during this visit. Patient has complex family/social dynamic, SW very familiar with family and situation. Plan: -CPAP trial today, plan to wean and extubate as possible after discussion with family. -Stop antibiotics today Qualifiers: Respiratory failure complication: hypoxia Qualified Code(s): J96.21 - Acute and chronic respiratory failure with hypoxia (3) Acute renal failure Current Visit: Yes Status: Resolved Resolved Qualifiers: Acute renal failure type: unspecified Qualified Code(s): N17.9 - Acute kidney failure, unspecified (4) Altered level of consciousness Current Visit: Yes Status: Acute Patient was found by mother and daughter to be unresponsive for an unknown period of time. Cause unknown, but likely secondary to drug use, aspiration pneumonia, and sepsis. UDS positive for opiates, benzos, marijuana. Concern for anoxic brain injury. (5) Aspiration pneumonia Current Visit: No Status: Acute CXR showed bilaterla pneumonia with chronic underlying changes. 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 Plan: -Has completed 7 days of cefepime today. Will stop antibiotic coverage Qualifiers: Aspiration pneumonia type: unspecified Laterality: bilateral Lung location: unspecified part of lung Qualified Code(s): J69.0 - Pneumonitis due to inhalation of food and vomit (6) Cardiac arrest Current Visit: Yes Status: Acute Patient had episode of cardiac arrest in ED before admission to ICU. She completed hypothermic protocol yesterday. Echo showed LVEF 60-65% with no dysfunction. HR labile, 100-50 Plan: -Continue cardiac monitoring. 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 Continue bronchodilators, steroids, antibiotics, ventilatory support. Plan: -CPAP trial today. extubate if tolerated. Qualifiers: COPD type: unspecified COPD Qualified Code(s): J44.9 - Chronic obstructive pulmonary disease, unspecified (10) Norovirus Current Visit: Yes Status: Acute Resolved, had 2 large bowel movements yesterday (11) DVT prophylaxis Current Visit: Yes Status: Acute Hep SQ Neuro: Found unresponsive/AMS cause unknown - concern for drug overdose or aspiration pneumonia. UDS + opiates, benzos and marijuana. Hx glioma, substance abuse. Head CT negative, repeat is stable. Concern for possible anoxic injury s/p arrest. Sedation has been held 48 hours, spontaneous eye movements, non-purposeful movements. No change in her neuro exam Pulm: Acute respiratory failure likely secondary to B/L aspiration pneumonia and COPD. Sputum culture + e. Coli. Currently intubated on CPAP setting, tolerating and breathing above settings. On cefepime, bronchodilators and steroids. CPAP trial today, consider extubation once wishes for reintubation established with family. Continue decadron 4mgIV BID. Cefepime day 01/18, will stop today Cardiac: s/p cardiac arrest, hypothermia protocol complete. RRR, normotensive. HR more labile today, 50-100. ECHO with EF of 65%, no dysfunction. stable, continue to monitor GI: Non-anion gap metabolic acidosis secondary to diarrhea from norovirus which has resolved, rectal tube removed. Patient receiving tube feeds, vital 50 . Renal: SIENA - Resolved. Urine culture + e. Coli, on cefepime. Phosphate 3.0 ID: Sepsis possibly secondary to pneumonia and UTI. Sputum and urine both growing e. Coli. Monitor vitals and labs. Cefepime day 01/18, will discontinue today Heme: heparin for DVT ppx; slight downtrend in H/H, suspect secondary to sepsis , s/p cardiac arrest, blood draws. Only once daily blood draws. Endo: Q6 accuchecks, SSI and hypoglycemic protocol. Code: Full Lines: Power glide, hernandez, ET, OG Subjective Principal diagnosis: Acute respiratory failure, found unresponsive Interval history: The patient was seen and examined. She remains intubated without sedation. No acute events overnight. The patient has been on CPAP mode since 599. Care conference planned for at 1300. Objective PUL Vital signs: Last Vital Signs Temp 98.6 F 12/19/16 03:00 Pulse 92 12/19/16 06:00 Resp 25 12/19/16 06:00 BP 137/73 12/19/16 06:00 Pulse Ox 100 12/19/16 06:00 General appearance: other (Intubated) Eyes: nonicteric ENT: oropharynx moist Neck: supple, no lymphadenopathy, no JVD Effort: normal Auscultation: bilateral: rales Cardiovascular: regular rate and rhythm Gastrointestinal: normoactive bowel sounds, soft, non-tender, non-distended Integumentary: normal Extremities: no cyanosis, edema Musculoskeletal: no deformities pupils equal and round, unable to assess due to mental status, other (Patient has spontaneous eye movements, nonpurposeful movements. Patient responds to nonspecific stimuli, does not respond to verbal commands or voice.) Ventilator Settings Ventilator Settings: Ventilator Settings, Last 8 Hours Ventilator Mode VC+ Ventilator Mode VC+ Ventilator Mode VC+ Ventilator Mode VC+ Ventilator Mode VC+ Ventilator Mode VC+ Ventilator Mode VC+ Ventilator Mode VC+ Ventilator Mode VC+ Ventilator Mode VC+ Ventilator Mode VC+ Ventilator Mode VC+ Ventilator Tidal Volume 550 Setting Ventilator Tidal Volume 550 Setting Ventilator Tidal Volume 550 Setting Ventilator Tidal Volume 550 Setting Ventilator Tidal Volume 550 Setting Ventilator Tidal Volume 550 Setting Ventilator Tidal Volume 550 Setting Ventilator Tidal Volume 550 Setting Ventilator Tidal Volume 550 Setting Ventilator Tidal Volume 550 Setting Ventilator Tidal Volume 550 Setting Ventilator Tidal Volume 550 Setting Ventilator Respiratory Rate 16 Setting Ventilator Respiratory Rate 16 Setting Ventilator Respiratory Rate 16 Setting Ventilator Respiratory Rate 16 Setting Ventilator Respiratory Rate 16 Setting Ventilator Respiratory Rate 16 Setting Ventilator Respiratory Rate 16 Setting Ventilator Respiratory Rate 16 Setting Ventilator Respiratory Rate 16 Setting Ventilator Respiratory Rate 16 Setting Ventilator Respiratory Rate 16 Setting Ventilator Respiratory Rate 16 Setting Actual Respiratory Rate 25 Actual Respiratory Rate 16 Actual Respiratory Rate 19 Actual Respiratory Rate 16 Actual Respiratory Rate 16 Actual Respiratory Rate 18 Actual Respiratory Rate 17 Actual Respiratory Rate 16 Actual Respiratory Rate 17 Actual Respiratory Rate 16 Actual Respiratory Rate 16 Actual Respiratory Rate 16 Positive End Expiratory 5 Pressure Positive End Expiratory 5 Pressure Positive End Expiratory 5 Pressure Positive End Expiratory 5 Pressure Positive End Expiratory 5 Pressure Positive End Expiratory 5 Pressure Positive End Expiratory 5 Pressure Positive End Expiratory 5 Pressure Positive End Expiratory 5 Pressure Positive End Expiratory 5 Pressure Positive End Expiratory 5 Pressure Positive End Expiratory 5 Pressure Peak Inspiratory Airway 22 Pressure Peak Inspiratory Airway 26 Pressure Peak Inspiratory Airway 32 Pressure Peak Inspiratory Airway 12 Pressure Peak Inspiratory Airway 32 Pressure Peak Inspiratory Airway 29 Pressure Peak Inspiratory Airway 33 Pressure Peak Inspiratory Airway 31 Pressure Peak Inspiratory Airway 31 Pressure Peak Inspiratory Airway 32 Pressure Peak Inspiratory Airway 30 Pressure Peak Inspiratory Airway 30 Pressure Results - Laboratory Findings CBC and BMP: 12/19/16 03:40 12/19/16 03:40 ABG ABG pH 7.48 pH Units (7.32-7.45) H 12/17/16 05:15 ABG pCO2 35 mmHg (35-45) 12/17/16 05:15 ABG pO2 137 mmHg (85-104) H 12/17/16 05:15 ABG O2 Saturation 99 % (95-98) H 12/17/16 05:15 PT/INR, D-dimer PT 14.9 Seconds (9.4-12.1) H 12/15/16 05:10 Abnormal lab findings: Abnormal lab results RBC 2.98 M/mcL (3.82-4.97) L 12/19/16 03:40 Hgb 9.2 g/dL (11.5-15.4) L 12/19/16 03:40 Hct 28.3 % (35.3-44.9) L 12/19/16 03:40 RDW 15.1 % (11.5-14.5) H 12/19/16 03:40 Band Neutrophils % 17.0 % (0-4) H 12/15/16 05:10 Metamyelocytes % 4.0 % (0) H 12/14/16 23:35 Promyelocytes % 1.0 % (0) H 12/14/16 00:25 Nucleated RBCs/100 WBC 0.4 /100 WBC (0) H 12/19/16 03:40 Reactive Lymphocytes Present (Not Present) A 12/13/16 15:41 Clumped Platelets Few (Not Present) A 12/14/16 00:25 Polychromasia 1+ (Not Present) A 12/13/16 15:41 PT 14.9 Seconds (9.4-12.1) H 12/15/16 05:10 ABG pH 7.48 pH Units (7.32-7.45) H 12/17/16 05:15 ABG pO2 137 mmHg (85-104) H 12/17/16 05:15 ABG Total CO2 27.2 mEq/L (20-26) H 12/17/16 05:15 ABG O2 Saturation 99 % (95-98) H 12/17/16 05:15 Chloride 110 mEq/L (98-109) H 12/19/16 03:40 BUN 25 mg/dL (7-20) H 12/19/16 03:40 BUN/Creatinine Ratio 42 (6-26) H 12/19/16 03:40 Glucose 104 mg/dL (70-99) H 12/19/16 03:40 POC Glucose 147 (58-89) H 12/18/16 23:37 Calculated Osmolality 305 (280-300) H 12/19/16 03:40 AST 167 Units/L (5-34) H 12/14/16 05:44 ALT 60 Units/L (0-55) H 12/14/16 05:44 Troponin I 1.06 ng/mL (0-0.03) H* 12/14/16 05:44 B-Natriuretic Peptide 150 pg/mL (0-100) H 12/13/16 16:45 Serum Total Protein 5.5 g/dL (6.0-8.3) L 12/14/16 05:44 Albumin 2.3 g/dL (3.5-5.0) L 12/14/16 05:44 Albumin/Globulin Ratio 0.7 (1.1-2.2) L 12/14/16 05:44 Urine Color [place] (Yellow) A 12/13/16 15:06 Urine Clarity Turbid (Clear) A 12/13/16 15:06 Urine Protein 100 mg/dL (Neg-Trace) H 12/13/16 15:06 Urine Ketones 15 mg/dL (Negative) H 12/13/16 15:06 Urine Blood Large (Negative) H 12/13/16 15:06 Urine Bilirubin Moderate (Negative) H 12/13/16 15:06 Ur Leukocyte Esterase Large (Negative) H 12/13/16 15:06 Urine Microscopic RBC 50-100 per hpf (0-3) H 12/13/16 15:06 Urine Microscopic WBC 30-50 per hpf (0-3) H 12/13/16 15:06 Urine Bacteria Many per hpf (None-Few) H 12/13/16 15:06 Ur Culture Indicated? YES (NO) A 12/13/16 15:06 Stl Norovirus GI/GII PCR DETECTED (Not detect) A 12/13/16 21:44 Urine Opiates Screen Positive ng/mL (Jgemoq=696) H 12/13/16 18:20 Acetaminophen < 1.0 mcg/mL (10-30) L 12/13/16 19:30 U Benzodiazepines Scrn Positive ng/mL (Vagjpk=838) H 12/13/16 18:20 U Marijuana (THC) Screen Positive ng/mL (Cutoff = 50) H 12/13/16 18:20 Staphylococcus sp PCR DETECTED (Not Detect) A 12/13/16 15:41 mecA-Methicil Res Gene DETECTED (Not Detect) A 12/13/16 15:41 - Microbiology Findings Microbiology Findings: Microbiology, Last 48 Hours 12/15/16 09:30 Blood Culture - Preliminary Central Venous Catheter No growth. 12/15/16 09:36 Blood Culture - Preliminary Peripheral Venipuncture No growth. 12/15/16 09:36 Blood Culture - Preliminary Peripheral Venipuncture No growth. - Clinical Findings Intake & Output: Intake & Output 12/18/16 12/18/16 12/19/16 15:59 23:59 07:59 Intake Total 0 / 0 594 / 594 220 / 220 Output Total 350 / 350 350 / 350 200 / 200 Balance -350 / -350 244 / 244 20 / 20 - VTE Documentation of Mechanical Device: Intermittent pneumatic compression device Consult Discharge Plan - Plan Referrals: NO,PCP [Non-Partnered Physician] - <Vega Horton W - Last Filed: 12/19/16 12:18> Date of Encounter: 12/19/16 Objective PUL Vital signs: Last Vital Signs Temp 98.9 F 12/19/16 07:39 Pulse 85 12/19/16 09:00 Resp 24 12/19/16 09:00 BP 128/77 12/19/16 09:00 Pulse Ox 99 12/19/16 09:00 Ventilator Settings Ventilator Settings: Ventilator Settings, Last 8 Hours Ventilator Mode CPAP Ventilator Mode CPAP Ventilator Mode CPAP Ventilator Mode CPAP Ventilator Mode CPAP Ventilator Mode VC+ Ventilator Mode VC+ Ventilator Mode VC+ Ventilator Mode VC+ Ventilator Mode VC+ Ventilator Mode VC+ Ventilator Mode VC+ Ventilator Tidal Volume 550 Setting Ventilator Tidal Volume 550 Setting Ventilator Tidal Volume 550 Setting Ventilator Tidal Volume 550 Setting Ventilator Tidal Volume 550 Setting Ventilator Tidal Volume 550 Setting Ventilator Tidal Volume 550 Setting Ventilator Tidal Volume 550 Setting Ventilator Tidal Volume 550 Setting Ventilator Tidal Volume 550 Setting Ventilator Tidal Volume 550 Setting Ventilator Respiratory Rate 16 Setting Ventilator Respiratory Rate 16 Setting Ventilator Respiratory Rate 16 Setting Ventilator Respiratory Rate 16 Setting Ventilator Respiratory Rate 16 Setting Ventilator Respiratory Rate 16 Setting Ventilator Respiratory Rate 16 Setting Ventilator Respiratory Rate 16 Setting Actual Respiratory Rate 24 Actual Respiratory Rate 28 Actual Respiratory Rate 28 Actual Respiratory Rate 19 Actual Respiratory Rate 25 Actual Respiratory Rate 25 Actual Respiratory Rate 16 Actual Respiratory Rate 19 Actual Respiratory Rate 16 Actual Respiratory Rate 16 Actual Respiratory Rate 18 Actual Respiratory Rate 17 Positive End Expiratory 5 Pressure Positive End Expiratory 5 Pressure Positive End Expiratory 5 Pressure Positive End Expiratory 5 Pressure Positive End Expiratory 5 Pressure Positive End Expiratory 5 Pressure Positive End Expiratory 5 Pressure Positive End Expiratory 5 Pressure Positive End Expiratory 5 Pressure Positive End Expiratory 5 Pressure Positive End Expiratory 5 Pressure Positive End Expiratory 5 Pressure Peak Inspiratory Airway 16 Pressure Peak Inspiratory Airway 22 Pressure Peak Inspiratory Airway 26 Pressure Peak Inspiratory Airway 32 Pressure Peak Inspiratory Airway 12 Pressure Peak Inspiratory Airway 32 Pressure Peak Inspiratory Airway 29 Pressure Peak Inspiratory Airway 33 Pressure Results - Laboratory Findings CBC and BMP: 12/19/16 03:40 12/19/16 03:40 ABG ABG pH 7.48 pH Units (7.32-7.45) H 12/17/16 05:15 ABG pCO2 35 mmHg (35-45) 12/17/16 05:15 ABG pO2 137 mmHg (85-104) H 12/17/16 05:15 ABG O2 Saturation 99 % (95-98) H 12/17/16 05:15 PT/INR, D-dimer PT 14.9 Seconds (9.4-12.1) H 12/15/16 05:10 Abnormal lab findings: Abnormal lab results RBC 2.98 M/mcL (3.82-4.97) L 12/19/16 03:40 Hgb 9.2 g/dL (11.5-15.4) L 12/19/16 03:40 Hct 28.3 % (35.3-44.9) L 12/19/16 03:40 RDW 15.1 % (11.5-14.5) H 12/19/16 03:40 Band Neutrophils % 17.0 % (0-4) H 12/15/16 05:10 Metamyelocytes % 4.0 % (0) H 12/14/16 23:35 Promyelocytes % 1.0 % (0) H 12/14/16 00:25 Nucleated RBCs/100 WBC 0.4 /100 WBC (0) H 12/19/16 03:40 Reactive Lymphocytes Present (Not Present) A 12/13/16 15:41 Clumped Platelets Few (Not Present) A 12/14/16 00:25 Polychromasia 1+ (Not Present) A 12/13/16 15:41 PT 14.9 Seconds (9.4-12.1) H 12/15/16 05:10 ABG pH 7.48 pH Units (7.32-7.45) H 12/17/16 05:15 ABG pO2 137 mmHg (85-104) H 12/17/16 05:15 ABG Total CO2 27.2 mEq/L (20-26) H 12/17/16 05:15 ABG O2 Saturation 99 % (95-98) H 12/17/16 05:15 Chloride 110 mEq/L (98-109) H 12/19/16 03:40 BUN 25 mg/dL (7-20) H 12/19/16 03:40 BUN/Creatinine Ratio 42 (6-26) H 12/19/16 03:40 Glucose 104 mg/dL (70-99) H 12/19/16 03:40 POC Glucose 147 (58-89) H 12/18/16 23:37 Calculated Osmolality 305 (280-300) H 12/19/16 03:40 AST 167 Units/L (5-34) H 12/14/16 05:44 ALT 60 Units/L (0-55) H 12/14/16 05:44 Troponin I 1.06 ng/mL (0-0.03) H* 12/14/16 05:44 B-Natriuretic Peptide 150 pg/mL (0-100) H 12/13/16 16:45 Serum Total Protein 5.5 g/dL (6.0-8.3) L 12/14/16 05:44 Albumin 2.3 g/dL (3.5-5.0) L 12/14/16 05:44 Albumin/Globulin Ratio 0.7 (1.1-2.2) L 12/14/16 05:44 Urine Color [place] (Yellow) A 12/13/16 15:06 Urine Clarity Turbid (Clear) A 12/13/16 15:06 Urine Protein 100 mg/dL (Neg-Trace) H 12/13/16 15:06 Urine Ketones 15 mg/dL (Negative) H 12/13/16 15:06 Urine Blood Large (Negative) H 12/13/16 15:06 Urine Bilirubin Moderate (Negative) H 12/13/16 15:06 Ur Leukocyte Esterase Large (Negative) H 12/13/16 15:06 Urine Microscopic RBC 50-100 per hpf (0-3) H 12/13/16 15:06 Urine Microscopic WBC 30-50 per hpf (0-3) H 12/13/16 15:06 Urine Bacteria Many per hpf (None-Few) H 12/13/16 15:06 Ur Culture Indicated? YES (NO) A 12/13/16 15:06 Stl Norovirus GI/GII PCR DETECTED (Not detect) A 12/13/16 21:44 Urine Opiates Screen Positive ng/mL (Kinfha=952) H 12/13/16 18:20 Acetaminophen < 1.0 mcg/mL (10-30) L 12/13/16 19:30 U Benzodiazepines Scrn Positive ng/mL (Ohweim=959) H 12/13/16 18:20 U Marijuana (THC) Screen Positive ng/mL (Cutoff = 50) H 12/13/16 18:20 Staphylococcus sp PCR DETECTED (Not Detect) A 12/13/16 15:41 mecA-Methicil Res Gene DETECTED (Not Detect) A 12/13/16 15:41 - Microbiology Findings Microbiology Findings: Microbiology, Last 48 Hours 12/15/16 09:30 Blood Culture - Preliminary Central Venous Catheter No growth. 12/15/16 09:36 Blood Culture - Preliminary Peripheral Venipuncture No growth. 12/15/16 09:36 Blood Culture - Preliminary Peripheral Venipuncture No growth. - Clinical Findings Intake & Output: Intake & Output 12/18/16 12/19/16 12/19/16 23:59 07:59 15:59 Intake Total 694 / 694 220 / 220 269 / 269 Output Total 350 / 350 350 / 350 Balance 344 / 344 -130 / -130 269 / 269 - Attending Attestation I examined this patient and my medical decision-making was reviewed with the GRINDING WHEEL FACER/PA/Advanced Practice Nurse/Resident Physician. I agree with the documented findings, disposition and treatment plan as described except to the extent set forth below. Patient seen and examined at bedside Labs, radiology, chart personally reviewed. All lines examined without evidence of infection. Neuropsych: Suspected Anoxic brain injury s/t hypoxia s/p ACLS. more spontaneous eye and extremity movements today but still no purposeful movements. continues off sedation. Poor prognosis for meaningful neurological recovery per Neuro assessment. Cont steroids for glioblastoma (chronic use) Pulm:hypoxic respiratory failure in part caused by presumed aspiration pneumonia with underlying COPD per history. Favorable CPAP trial today consider extubation when family agrees to proceed. cont bronchodilators.. Dose of lasix today for increasing pulmonary edema Cards. Hemodynamically stable. cont tele monitoring. FEN-GI: cont PPi proxphylaxis. cont enteral nutrition (at goal). Renal: siena resolved. cont daily monitoring of renal function ID: Treated for 7 days for Escherichia coli PNA in sputum likely secondary to aspiration. no other s/s of infection Heme/Onc: Anemia stable H/H. suspect critical illness/blood draws no over s/s of bleeding. Cont DVT prophylaxis Endo: glucose monitored and stable Integ/MSK: Skin care per ICU protocol to prevent ulcers CODE: Full code presently additional family meeting pending tomorrow afternoon. ' guest services agent and Palliative Care following closely
[2016-12-19] MEDS ORDERED: Furosemide 20 MG/2 ML VIAL IVP ONE (07:13)
[2016-12-19] MEDS: Chlorhexidine Rinse 15 ML MOUTHWASH MM SCH ×2 (08:00→21:05)
[2016-12-19] MEDS: Dexamethasone 4 MG/ML VIAL IVP SCH ×2 (08:00→21:05)
[2016-12-19] MEDS: Cefepime HCl 2,000 MG in D5% in Water (Mini-Bag+) 100 ML IVPB SCH ×2 (08:00→21:05)
[2016-12-19] MEDS: Pantoprazole 40 MG VIAL IVPB SCH (08:01)
[2016-12-19] MEDS: Budesonide/Formoterol 160/4.5 MDI IH SCH ×2 (10:54→21:30)
--- NOTE | 2016-12-19 11:15 | Event Note ---
Date of Encounter: 12/19/16 Time of Encounter: 11:00 Patient remains on vent - tolerating CPAP. Neuro status appears unchanged. Eyes open and becomes restless with exam. No purposeful movement, does not follow commands. Arms stiff, performed range of motion during exam. Meeting scheduled with father/grandmother for tomorrow at 1300.
--- NOTE | 2016-12-19 14:18 | Event Note ---
Date of Encounter: 12/19/16 Time of Encounter: 12:00 Patient's case discussed with ALEJANDRO Coy. Risk and Legal has been contacted to review case and assist in determining decision-maker to pt. We have learned pt is legally still to , Hector Blackburn, however, he may have current restraining order. Will continue to work through social situation and update staff accordingly.
[2016-12-20] MEDS: Lacri-Lube 3.5 GM TUBE BOTH EYES SCH ×7 (00:30→23:12)
[2016-12-20] MEDS: Ipratropium/Albuterol Neb 3 ML IH SCH ×4 (03:47→21:07)
[2016-12-20 03:55] LABS: Basophils % 0.1 %; Hematocrit 30.7 % (35.3-44.9); Immature Granulocytes % 1.7 % (0-4); Lymphocytes # 0.8 K/mcL (0.6-4.6); Lymphocytes % 8.6 %; Mean Corpuscular HGB Conc 32.6 g/dL (31.6-35.5); Mean Corpuscular Hemoglobin 30.3 pg (28.0-33.3); Mean Platelet Volume 10.6 fL (9.4-12.4); Monocytes # 0.8 K/mcL (0.0-1.3); Monocytes % 8.7 %; Neutrophils # 7.5 K/mcL (1.6-8.9); Nucleated Red Blood Cells 0.2 /100 WBC (0); Platelet Count 233 K/mcL (140-400); Red Cell Distribution Width 14.8 % (11.5-14.5); Segmented Neutrophils % 80.9 %
[2016-12-20] MEDS: Insulin LISPRO 300 UNITS/3 ML VIAL SQ SCH ×5 (04:00→23:25)
[2016-12-20 04:08] LABS: BUN/Creatinine Ratio 40 (6-26); Blood Urea Nitrogen 24 mg/dL (7-20); Calcium 9.1 mg/dL (8.6-10.8); Carbon Dioxide 30 mEq/L (19-29); Chloride 104 mEq/L (98-109); Glucose 102 mg/dL (70-99); Osmolality,Calculated 300 (280-300); Potassium 3.8 mEq/L (3.5-4.5); Sodium 143 mEq/L (136-145); eGFR For African Americans > 60 (> 60); eGFR For Non-African Americans > 60 (> 60)
[2016-12-20] MEDS: *HR* Heparin 5,000 UNIT/ML VIAL SQ SCH ×3 (05:42→19:35)
--- NOTE | 2016-12-20 06:55 | Pulmonology Progress Note ---
<Rachel Lara - Last Filed: 12/20/16 11:00> Date of Encounter: 12/20/16 Time of Encounter: 06:55 Assessment and Plan (1) Sepsis Current Visit: Yes Status: Acute Upon admission, patient had tachycardia, hypotension, tachypnea, elevated WBC. 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 WBC normalized. Legionella and strep pneumo antigen negative Sputum culture and urine culture grew e. coli Blood culture grew staph epidermidis repeat head CT 12/16 stable The patient's level of consciousness has not improved since admission, neuro has examined the patient and feels that the patient is not locked in and has a poor prognosis. Patient has been tolerating CPAP mode on the ventilator this morning, has been off of sedation for >96 hours Will get repeat head CT today, patient has slight increase in mydriasis 6-7mm, was 3mm. repeat unchanged from prior Care conference planned for today with family to discuss code status and plans for potential reintubation once patient is extubated. Plan: -repeat head CT -CPAP trial today -Care conference this afternoon -appreciate neuro input Qualifiers: Sepsis type: Escherichia coli Qualified Code(s): A41.51 - Sepsis due to Escherichia coli [E. coli] (2) Acute and chronic respiratory failure Current Visit: Yes Status: Acute Likely secondary to aspiration pneumonia. Patient tolerating CPAP trial, has been off sedation >24hours Care conference today to discuss code status and family wishes in the event the patient may need reintubation following extubation during this visit. Patient has complex family/social dynamic, SW very familiar with family and situation. Plan: -CPAP trial today, plan to wean and extubate as possible after discussion with family. Qualifiers: Respiratory failure complication: hypoxia Qualified Code(s): J96.21 - Acute and chronic respiratory failure with hypoxia (3) Acute renal failure Current Visit: Yes Status: Resolved Resolved Qualifiers: Acute renal failure type: unspecified Qualified Code(s): N17.9 - Acute kidney failure, unspecified (4) Altered level of consciousness Current Visit: Yes Status: Acute Patient was found by mother and daughter to be unresponsive for an unknown period of time. Cause unknown, but likely secondary to drug use, aspiration pneumonia, and sepsis. UDS positive for opiates, benzos, marijuana. Concern for anoxic brain injury. (5) Aspiration pneumonia Current Visit: No Status: Acute CXR showed bilaterla pneumonia with chronic underlying changes. 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 Completed 7 days of cefepime Qualifiers: Aspiration pneumonia type: unspecified Laterality: bilateral Lung location: unspecified part of lung Qualified Code(s): J69.0 - Pneumonitis due to inhalation of food and vomit (6) Cardiac arrest Current Visit: Yes Status: Acute Patient had episode of cardiac arrest in ED before admission to ICU. She completed hypothermic protocol yesterday. Echo showed LVEF 60-65% with no dysfunction. HR labile, 100-50 Plan: -Continue cardiac monitoring. 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 Continue bronchodilators, steroids, antibiotics, ventilatory support. Plan: -CPAP trial today. extubate if tolerated. Qualifiers: COPD type: unspecified COPD Qualified Code(s): J44.9 - Chronic obstructive pulmonary disease, unspecified (10) Norovirus Current Visit: Yes Status: Acute Resolved, had 1 bowel movements yesterday (11) DVT prophylaxis Current Visit: Yes Status: Acute Hep SQ Neuro: Found unresponsive/AMS cause unknown - concern for drug overdose or aspiration pneumonia. UDS + opiates, benzos and marijuana. Hx glioma, substance abuse. Head CT negative, repeat is stable. Concern for possible anoxic injury s/p arrest. Sedation has been held 96 hours, spontaneous eye movements, non-purposeful movements. Pupils dilated 6-7mm. Will repeat head CT today Pulm: Acute respiratory failure likely secondary to B/L aspiration pneumonia and COPD. Sputum culture + e. Coli. Currently intubated on CPAP setting, tolerating and breathing above settings. On cefepime, bronchodilators and steroids. CPAP trial today, consider extubation once wishes for reintubation established with family. Continue decadron 4mgIV BID. Cardiac: s/p cardiac arrest, hypothermia protocol complete. RRR, normotensive. HR more labile today, 50-100. ECHO with EF of 65%, no dysfunction. stable, continue to monitor GI: Non-anion gap metabolic acidosis secondary to diarrhea from norovirus which has resolved, rectal tube removed. Patient receiving tube feeds, vital 50 . Renal: SIENA - Resolved. Urine culture + e. Coli, on cefepime. ID: Sepsis possibly secondary to pneumonia and UTI. Sputum and urine both growing e. Coli. Monitor vitals and labs. Heme: heparin for DVT ppx; slight downtrend in H/H, suspect secondary to sepsis , s/p cardiac arrest, blood draws. Only once daily blood draws. Endo: Q6 accuchecks, SSI and hypoglycemic protocol. Code: Full Lines: Power glide, hernandez, ET, OG Subjective Principal diagnosis: Acute respiratory failure, found unresponsive Interval history: The patient was seen and examined. She remains intubated without sedation. No acute events overnight. The patient has been on CPAP mode since 0600. Care conference planned for today at 1300. Objective PUL Vital signs: Last Vital Signs Temp 98.7 F 12/20/16 03:40 Pulse 74 12/20/16 06:00 Resp 16 12/20/16 06:00 BP 144/99 12/20/16 06:00 Pulse Ox 100 12/20/16 06:00 General appearance: other (intubated) Eyes: nonicteric ENT: oropharynx moist Neck: supple, no lymphadenopathy, no JVD Effort: normal Auscultation: bilateral: rales Cardiovascular: regular rate and rhythm Gastrointestinal: normoactive bowel sounds, soft, non-tender, non-distended Integumentary: normal Extremities: no cyanosis, no edema, no clubbing, pulses normal Musculoskeletal: no deformities pupils equal and round (pupils 6-7mm dilation), unable to assess due to mental status, other (Patient has spontaneous eye movements, nonpurposeful movements. Patient responds to nonspecific stimuli, does not respond to verbal commands or voice. Patient yawning during exam, posturing) other Ventilator Settings Ventilator Settings: Ventilator Settings, Last 8 Hours Ventilator Mode VC+ Ventilator Mode VC+ Ventilator Mode VC+ Ventilator Mode VC+ Ventilator Mode VC+ Ventilator Mode VC+ Ventilator Mode VC+ Ventilator Mode VC+ Ventilator Mode VC+ Ventilator Mode VC+ Ventilator Mode VC+ Ventilator Mode VC+ Ventilator Tidal Volume 550 Setting Ventilator Tidal Volume 550 Setting Ventilator Tidal Volume 550 Setting Ventilator Tidal Volume 550 Setting Ventilator Tidal Volume 550 Setting Ventilator Tidal Volume 550 Setting Ventilator Tidal Volume 550 Setting Ventilator Tidal Volume 550 Setting Ventilator Tidal Volume 550 Setting Ventilator Tidal Volume 550 Setting Ventilator Tidal Volume 550 Setting Ventilator Tidal Volume 550 Setting Ventilator Respiratory Rate 16 Setting Ventilator Respiratory Rate 16 Setting Ventilator Respiratory Rate 16 Setting Ventilator Respiratory Rate 16 Setting Ventilator Respiratory Rate 16 Setting Ventilator Respiratory Rate 16 Setting Ventilator Respiratory Rate 16 Setting Ventilator Respiratory Rate 24 Setting Ventilator Respiratory Rate 16 Setting Ventilator Respiratory Rate 16 Setting Ventilator Respiratory Rate 16 Setting Ventilator Respiratory Rate 16 Setting Actual Respiratory Rate 16 Actual Respiratory Rate 16 Actual Respiratory Rate 16 Actual Respiratory Rate 16 Actual Respiratory Rate 22 Actual Respiratory Rate 24 Actual Respiratory Rate 27 Actual Respiratory Rate 16 Actual Respiratory Rate 18 Actual Respiratory Rate 16 Actual Respiratory Rate 16 Actual Respiratory Rate 16 Positive End Expiratory 5 Pressure Positive End Expiratory 5 Pressure Positive End Expiratory 5 Pressure Positive End Expiratory 5 Pressure Positive End Expiratory 5 Pressure Positive End Expiratory 5 Pressure Positive End Expiratory 5 Pressure Positive End Expiratory 5 Pressure Positive End Expiratory 5 Pressure Positive End Expiratory 5 Pressure Positive End Expiratory 5 Pressure Positive End Expiratory 5 Pressure Peak Inspiratory Airway 36 Pressure Peak Inspiratory Airway 30 Pressure Peak Inspiratory Airway 30 Pressure Peak Inspiratory Airway 30 Pressure Peak Inspiratory Airway 26 Pressure Peak Inspiratory Airway 26 Pressure Peak Inspiratory Airway 26 Pressure Peak Inspiratory Airway 30 Pressure Peak Inspiratory Airway 30 Pressure Peak Inspiratory Airway 31 Pressure Peak Inspiratory Airway 36 Pressure Results - Laboratory Findings CBC and BMP: 12/20/16 03:45 12/20/16 03:45 ABG ABG pH 7.48 pH Units (7.32-7.45) H 12/17/16 05:15 ABG pCO2 35 mmHg (35-45) 12/17/16 05:15 ABG pO2 137 mmHg (85-104) H 12/17/16 05:15 ABG O2 Saturation 99 % (95-98) H 12/17/16 05:15 PT/INR, D-dimer PT 14.9 Seconds (9.4-12.1) H 12/15/16 05:10 Abnormal lab findings: Abnormal lab results RBC 3.30 M/mcL (3.82-4.97) L 12/20/16 03:45 Hgb 10.0 g/dL (11.5-15.4) L 12/20/16 03:45 Hct 30.7 % (35.3-44.9) L 12/20/16 03:45 RDW 14.8 % (11.5-14.5) H 12/20/16 03:45 Band Neutrophils % 17.0 % (0-4) H 12/15/16 05:10 Metamyelocytes % 4.0 % (0) H 12/14/16 23:35 Promyelocytes % 1.0 % (0) H 12/14/16 00:25 Nucleated RBCs/100 WBC 0.2 /100 WBC (0) H 12/20/16 03:45 Reactive Lymphocytes Present (Not Present) A 12/13/16 15:41 Clumped Platelets Few (Not Present) A 12/14/16 00:25 Polychromasia 1+ (Not Present) A 12/13/16 15:41 PT 14.9 Seconds (9.4-12.1) H 12/15/16 05:10 ABG pH 7.48 pH Units (7.32-7.45) H 12/17/16 05:15 ABG pO2 137 mmHg (85-104) H 12/17/16 05:15 ABG Total CO2 27.2 mEq/L (20-26) H 12/17/16 05:15 ABG O2 Saturation 99 % (95-98) H 12/17/16 05:15 Carbon Dioxide 30 mEq/L (19-29) H 12/20/16 03:45 BUN 24 mg/dL (7-20) H 12/20/16 03:45 BUN/Creatinine Ratio 40 (6-26) H 12/20/16 03:45 Glucose 102 mg/dL (70-99) H 12/20/16 03:45 POC Glucose 111 (58-89) H 12/19/16 23:26 AST 167 Units/L (5-34) H 12/14/16 05:44 ALT 60 Units/L (0-55) H 12/14/16 05:44 Troponin I 1.06 ng/mL (0-0.03) H* 12/14/16 05:44 B-Natriuretic Peptide 150 pg/mL (0-100) H 12/13/16 16:45 Serum Total Protein 5.5 g/dL (6.0-8.3) L 12/14/16 05:44 Albumin 2.3 g/dL (3.5-5.0) L 12/14/16 05:44 Albumin/Globulin Ratio 0.7 (1.1-2.2) L 12/14/16 05:44 Urine Color [place] (Yellow) A 12/13/16 15:06 Urine Clarity Turbid (Clear) A 12/13/16 15:06 Urine Protein 100 mg/dL (Neg-Trace) H 12/13/16 15:06 Urine Ketones 15 mg/dL (Negative) H 12/13/16 15:06 Urine Blood Large (Negative) H 12/13/16 15:06 Urine Bilirubin Moderate (Negative) H 12/13/16 15:06 Ur Leukocyte Esterase Large (Negative) H 12/13/16 15:06 Urine Microscopic RBC 50-100 per hpf (0-3) H 12/13/16 15:06 Urine Microscopic WBC 30-50 per hpf (0-3) H 12/13/16 15:06 Urine Bacteria Many per hpf (None-Few) H 12/13/16 15:06 Ur Culture Indicated? YES (NO) A 12/13/16 15:06 Stl Norovirus GI/GII PCR DETECTED (Not detect) A 12/13/16 21:44 Urine Opiates Screen Positive ng/mL (Yjyfqs=488) H 12/13/16 18:20 Acetaminophen < 1.0 mcg/mL (10-30) L 12/13/16 19:30 U Benzodiazepines Scrn Positive ng/mL (Kcxeps=405) H 12/13/16 18:20 U Marijuana (THC) Screen Positive ng/mL (Cutoff = 50) H 12/13/16 18:20 Staphylococcus sp PCR DETECTED (Not Detect) A 12/13/16 15:41 mecA-Methicil Res Gene DETECTED (Not Detect) A 12/13/16 15:41 - Diagnostic Findings Additional studies: Head CT 12/20/16 08:07 IMPRESSION: No acute intracranial abnormality. Small air-fluid level within a posterior right mastoid air cell. D/ / Purvi Abdi MD / Purvi Abdi MD Interpreting Provider: Purvi Abdi MD - Clinical Findings Intake & Output: Intake & Output 12/19/16 12/19/16 12/20/16 15:59 23:59 07:59 Intake Total 369 / 369 360 / 360 268 / 268 Output Total 2100 / 2100 700 / 700 275 / 275 Balance -1731 / -1731 -340 / -340 -7 / -7 Weight 73 kg - VTE Documentation of Mechanical Device: Intermittent pneumatic compression device Consult Discharge Plan - Plan Referrals: NO,PCP [Non-Partnered Physician] - <Vega Horton W - Last Filed: 12/20/16 13:49> Date of Encounter: 12/20/16 Objective PUL Vital signs: Last Vital Signs Temp 99.0 F 12/20/16 11:37 Pulse 73 12/20/16 12:00 Resp 30 12/20/16 12:00 BP 138/88 12/20/16 12:00 Pulse Ox 100 12/20/16 12:00 Ventilator Settings Ventilator Settings: Ventilator Settings, Last 8 Hours Ventilator Mode CPAP Ventilator Mode CPAP Ventilator Mode CPAP Ventilator Mode VC+ Ventilator Mode CPAP Ventilator Mode VC+ Ventilator Tidal Volume 550 Setting Ventilator Tidal Volume 550 Setting Ventilator Respiratory Rate 16 Setting Ventilator Respiratory Rate 16 Setting Actual Respiratory Rate 32 Actual Respiratory Rate 32 Actual Respiratory Rate 26 Actual Respiratory Rate 16 Actual Respiratory Rate 26 Actual Respiratory Rate 16 Positive End Expiratory 5 Pressure Positive End Expiratory 5 Pressure Positive End Expiratory 5 Pressure Positive End Expiratory 5 Pressure Positive End Expiratory 5 Pressure Positive End Expiratory 5 Pressure Peak Inspiratory Airway 14 Pressure Peak Inspiratory Airway 14 Pressure Peak Inspiratory Airway 36 Pressure Peak Inspiratory Airway 36 Pressure Peak Inspiratory Airway 15 Pressure Peak Inspiratory Airway 36 Pressure Results - Laboratory Findings CBC and BMP: 12/20/16 03:45 12/20/16 03:45 ABG ABG pH 7.48 pH Units (7.32-7.45) H 12/17/16 05:15 ABG pCO2 35 mmHg (35-45) 12/17/16 05:15 ABG pO2 137 mmHg (85-104) H 12/17/16 05:15 ABG O2 Saturation 99 % (95-98) H 12/17/16 05:15 PT/INR, D-dimer PT 14.9 Seconds (9.4-12.1) H 12/15/16 05:10 Abnormal lab findings: Abnormal lab results RBC 3.30 M/mcL (3.82-4.97) L 12/20/16 03:45 Hgb 10.0 g/dL (11.5-15.4) L 12/20/16 03:45 Hct 30.7 % (35.3-44.9) L 12/20/16 03:45 RDW 14.8 % (11.5-14.5) H 12/20/16 03:45 Band Neutrophils % 17.0 % (0-4) H 12/15/16 05:10 Metamyelocytes % 4.0 % (0) H 12/14/16 23:35 Promyelocytes % 1.0 % (0) H 12/14/16 00:25 Nucleated RBCs/100 WBC 0.2 /100 WBC (0) H 12/20/16 03:45 Reactive Lymphocytes Present (Not Present) A 12/13/16 15:41 Clumped Platelets Few (Not Present) A 12/14/16 00:25 Polychromasia 1+ (Not Present) A 12/13/16 15:41 PT 14.9 Seconds (9.4-12.1) H 12/15/16 05:10 ABG pH 7.48 pH Units (7.32-7.45) H 12/17/16 05:15 ABG pO2 137 mmHg (85-104) H 12/17/16 05:15 ABG Total CO2 27.2 mEq/L (20-26) H 12/17/16 05:15 ABG O2 Saturation 99 % (95-98) H 12/17/16 05:15 Carbon Dioxide 30 mEq/L (19-29) H 12/20/16 03:45 BUN 24 mg/dL (7-20) H 12/20/16 03:45 BUN/Creatinine Ratio 40 (6-26) H 12/20/16 03:45 Glucose 102 mg/dL (70-99) H 12/20/16 03:45 POC Glucose 111 (58-89) H 12/19/16 23:26 AST 167 Units/L (5-34) H 12/14/16 05:44 ALT 60 Units/L (0-55) H 12/14/16 05:44 Troponin I 1.06 ng/mL (0-0.03) H* 12/14/16 05:44 B-Natriuretic Peptide 150 pg/mL (0-100) H 12/13/16 16:45 Serum Total Protein 5.5 g/dL (6.0-8.3) L 12/14/16 05:44 Albumin 2.3 g/dL (3.5-5.0) L 12/14/16 05:44 Albumin/Globulin Ratio 0.7 (1.1-2.2) L 12/14/16 05:44 Urine Color [place] (Yellow) A 12/13/16 15:06 Urine Clarity Turbid (Clear) A 12/13/16 15:06 Urine Protein 100 mg/dL (Neg-Trace) H 12/13/16 15:06 Urine Ketones 15 mg/dL (Negative) H 12/13/16 15:06 Urine Blood Large (Negative) H 12/13/16 15:06 Urine Bilirubin Moderate (Negative) H 12/13/16 15:06 Ur Leukocyte Esterase Large (Negative) H 12/13/16 15:06 Urine Microscopic RBC 50-100 per hpf (0-3) H 12/13/16 15:06 Urine Microscopic WBC 30-50 per hpf (0-3) H 12/13/16 15:06 Urine Bacteria Many per hpf (None-Few) H 12/13/16 15:06 Ur Culture Indicated? YES (NO) A 12/13/16 15:06 Stl Norovirus GI/GII PCR DETECTED (Not detect) A 12/13/16 21:44 Urine Opiates Screen Positive ng/mL (Eeiina=686) H 12/13/16 18:20 Acetaminophen < 1.0 mcg/mL (10-30) L 12/13/16 19:30 U Benzodiazepines Scrn Positive ng/mL (Ryfpur=982) H 12/13/16 18:20 U Marijuana (THC) Screen Positive ng/mL (Cutoff = 50) H 12/13/16 18:20 Staphylococcus sp PCR DETECTED (Not Detect) A 12/13/16 15:41 mecA-Methicil Res Gene DETECTED (Not Detect) A 12/13/16 15:41 - Clinical Findings Intake & Output: Intake & Output 12/19/16 12/20/16 12/20/16 23:59 07:59 15:59 Intake Total 360 / 360 268 / 268 0 / 0 Output Total 700 / 700 475 / 475 200 / 200 Balance -340 / -340 -207 / -207 -200 / -200 Weight 73 kg - Attending Attestation I examined this patient and my medical decision-making was reviewed with the HABITAT MANAGEMENT COORDINATOR/PA/Advanced Practice Nurse/Resident Physician. I agree with the documented findings, disposition and treatment plan as described except to the extent set forth below. Patient seen and examined at bedside Labs, radiology, chart personally reviewed. All lines examined without evidence of infection. Neuropsych: Suspected Anoxic brain injury s/t hypoxia s/p ACLS. Poor prognosis for meaningful neurological recovery per Neuro assessment. Cont steroids for glioblastoma (chronic use) Pulm:hypoxic respiratory failure in part caused by presumed aspiration pneumonia with underlying COPD per history. Favorable CPAP trial today consider extubation when family agrees to proceed vs Permanent Trach. Cont bronchodilators.. Cards. Hemodynamically stable. cont tele monitoring. FEN-GI: cont PPi proxphylaxis. cont enteral nutrition (at goal). Renal: siena resolved. cont daily monitoring of renal function ID: Stable off ABx Heme/Onc: Anemia stable H/H. suspect critical illness/blood draws no over s/s of bleeding. Cont DVT prophylaxis Endo: glucose monitored and stable Integ/MSK: Skin care per ICU protocol to prevent ulcers CODE: Full code I met with the patient's father and mother along with social worker medicine and nursing staff with regards to plan of care. Expressed to the family that patient's overall neurological prognosis is quite poor and she would likely need permanent care in a medical facility. Would like to attempt to extubate patient at which point family was hesitant and one more time to discuss I also brought up the possibility of permanent tracheostomy which they also will consider I suspect that patient would require permanent tracheostomy and PEG tube placement and transferred long-term care. I asked expressed that my medical opinion was that cardiopulmonary resuscitation would not offer any durable medical benefit. Family to reconvene in next 2448 hrs. for decisions regarding CODE STATUS possibility of tracheostomy.
[2016-12-20] MEDS: Budesonide/Formoterol 160/4.5 MDI IH SCH ×2 (10:18→21:07)
[2016-12-20] MEDS: Pantoprazole 40 MG VIAL IVPB SCH (10:48)
[2016-12-20] MEDS: Dexamethasone 4 MG/ML VIAL IVP SCH ×2 (10:48→19:35)
[2016-12-20] MEDS: Chlorhexidine Rinse 15 ML MOUTHWASH MM SCH ×2 (10:48→19:35)
--- NOTE | 2016-12-20 14:33 | Palliative Progress Note ---
Date of Encounter: 12/20/16 Time of Encounter: 14:20 - Assessment and plan (1) Anoxic brain injury Current Visit: Yes Status: Acute (2) Acute and chronic respiratory failure Current Visit: No Status: Acute Qualifiers: Respiratory failure complication: hypoxia and hypercapnia Qualified Code(s) : J96.21 - Acute and chronic respiratory failure with hypoxia; J96.22 - Acute and chronic respiratory failure with hypercapnia (3) Counseling regarding advanced care planning and goals of care Current Visit: Yes Status: Acute Assessment and plan: Family meeting to discuss goals of care. Reviewed diagnoses, treatment plan, plan of care. Reviewed outcomes and expectations. Parents asked appropriate questions. Will have follow-up conversation tomorrow. Present at meeting: Parents: Isra Horton, Dr. Lara, Primary RN-Fracisco, social media analyst-Tessa Lombardi, Palliative Care team-Ayesha Gomez). (4) Aspiration pneumonia Current Visit: No Status: Suspected Qualifiers: Aspiration pneumonia type: unspecified Laterality: bilateral Lung location: unspecified part of lung Qualified Code(s): J69.0 - Pneumonitis due to inhalation of food and vomit (5) Cardiac arrest Current Visit: Yes Status: Acute - Time Spent With Patient Total time spent is greater than 50% in coordination of care (as documented) at patient's floor/unit and/or counseling patient: - Subjective Interval history: Ms. Perez remains in the ICU on mechanical ventilation. Movements are non- purposeful, does not follow commands. Tolerating SBT. - Constitutional Vitals: Abnormal lab results RBC 3.30 M/mcL (3.82-4.97) L 12/20/16 03:45 Hgb 10.0 g/dL (11.5-15.4) L 12/20/16 03:45 Hct 30.7 % (35.3-44.9) L 12/20/16 03:45 RDW 14.8 % (11.5-14.5) H 12/20/16 03:45 Band Neutrophils % 17.0 % (0-4) H 12/15/16 05:10 Metamyelocytes % 4.0 % (0) H 12/14/16 23:35 Promyelocytes % 1.0 % (0) H 12/14/16 00:25 Nucleated RBCs/100 WBC 0.2 /100 WBC (0) H 12/20/16 03:45 Reactive Lymphocytes Present (Not Present) A 12/13/16 15:41 Clumped Platelets Few (Not Present) A 12/14/16 00:25 Polychromasia 1+ (Not Present) A 12/13/16 15:41 PT 14.9 Seconds (9.4-12.1) H 12/15/16 05:10 ABG pH 7.48 pH Units (7.32-7.45) H 12/17/16 05:15 ABG pO2 137 mmHg (85-104) H 12/17/16 05:15 ABG Total CO2 27.2 mEq/L (20-26) H 12/17/16 05:15 ABG O2 Saturation 99 % (95-98) H 12/17/16 05:15 Carbon Dioxide 30 mEq/L (19-29) H 12/20/16 03:45 BUN 24 mg/dL (7-20) H 12/20/16 03:45 BUN/Creatinine Ratio 40 (6-26) H 12/20/16 03:45 Glucose 102 mg/dL (70-99) H 12/20/16 03:45 POC Glucose 111 (58-89) H 12/19/16 23:26 AST 167 Units/L (5-34) H 12/14/16 05:44 ALT 60 Units/L (0-55) H 12/14/16 05:44 Troponin I 1.06 ng/mL (0-0.03) H* 12/14/16 05:44 B-Natriuretic Peptide 150 pg/mL (0-100) H 12/13/16 16:45 Serum Total Protein 5.5 g/dL (6.0-8.3) L 12/14/16 05:44 Albumin 2.3 g/dL (3.5-5.0) L 12/14/16 05:44 Albumin/Globulin Ratio 0.7 (1.1-2.2) L 12/14/16 05:44 Urine Color [place] (Yellow) A 12/13/16 15:06 Urine Clarity Turbid (Clear) A 12/13/16 15:06 Urine Protein 100 mg/dL (Neg-Trace) H 12/13/16 15:06 Urine Ketones 15 mg/dL (Negative) H 12/13/16 15:06 Urine Blood Large (Negative) H 12/13/16 15:06 Urine Bilirubin Moderate (Negative) H 12/13/16 15:06 Ur Leukocyte Esterase Large (Negative) H 12/13/16 15:06 Urine Microscopic RBC 50-100 per hpf (0-3) H 12/13/16 15:06 Urine Microscopic WBC 30-50 per hpf (0-3) H 12/13/16 15:06 Urine Bacteria Many per hpf (None-Few) H 12/13/16 15:06 Ur Culture Indicated? YES (NO) A 12/13/16 15:06 Stl Norovirus GI/GII PCR DETECTED (Not detect) A 12/13/16 21:44 Urine Opiates Screen Positive ng/mL (Aylgza=740) H 12/13/16 18:20 Acetaminophen < 1.0 mcg/mL (10-30) L 12/13/16 19:30 U Benzodiazepines Scrn Positive ng/mL (Plkdpu=[id number]) H 12/13/16 18:20 U Marijuana (THC) Screen Positive ng/mL (Cutoff = 50) H 12/13/16 18:20 Staphylococcus sp PCR DETECTED (Not Detect) A 12/13/16 15:41 mecA-Methicil Res Gene DETECTED (Not Detect) A 12/13/16 15:41 - Eye Eye exam: Present: PERRL - ENT ENT exam: Present: mucous membranes moist - Respiratory Additional comments: intubated on mechanical ventilation - Cardiovascular Cardiovascular exam: Present: RRR - GI/Abdominal GI/Abdominal exam: Present: soft. Absent: guarding, tenderness - Extremities Exam Extremities exam: Absent: full ROM (extremities noted to be rigid at times, passice ROM completed. ) - Neurological Exam Additional comments: opens eyes, but not to commands, no purposeful movements, tolerating SBT - Skin Skin exam: Present: dry, warm Additional comments: scabbed areas noted to bilateral lower extremities, excoriated areas noted to james area. Palliative Quality Palliative Quality: Screen for Code Status: NA (pt not responsive, awaiting family meeting), Screen for Goals of Care: NA, Screen for Pain: NA, If Pain Regimen Started, Initiate Bowel Regimen: NA, Screen for Nausea/Vomitting: NA Code Status: 12/13/16 18:17 Resuscitation Status: Active [RES] Routine Comment: Resuscitation Status: Full Code - Labs CBC & Chem 7: 12/20/16 03:45 12/20/16 03:45 Labs: Laboratory Results - last 24 hr 12/19/16 12/19/16 12/19/16 05:48 10:57 17:48 WBC RBC Hgb Hct MCV MCH MCHC RDW Plt Count MPV Immature Gran % Seg Neutrophils % Lymphocytes % Monocytes % Eosinophils % Basophils % Neutrophils # Lymphocytes # Monocytes # Eosinophils # Basophils # Nucleated RBCs/100 WBC Sodium Potassium Chloride Carbon Dioxide BUN Creatinine Est GFR ( Amer) Est GFR (Non-Af Amer) BUN/Creatinine Ratio Glucose POC Glucose 95 H 105 H 89 Calculated Osmolality Calcium Magnesium 12/19/16 12/20/16 12/20/16 23:26 03:45 03:45 WBC 9.3 RBC 3.30 L Hgb 10.0 L Hct 30.7 L MCV 93.0 MCH 30.3 MCHC 32.6 RDW 14.8 H Plt Count 233 MPV 10.6 Immature Gran % 1.7 Seg Neutrophils % 80.9 Lymphocytes % 8.6 Monocytes % 8.7 Eosinophils % 0.0 Basophils % 0.1 Neutrophils # 7.5 Lymphocytes # 0.8 Monocytes # 0.8 Eosinophils # 0.0 Basophils # 0.0 Nucleated RBCs/100 WBC 0.2 H Sodium 143 Potassium 3.8 Chloride 104 Carbon Dioxide 30 H BUN 24 H Creatinine 0.60 Est GFR ( Amer) > 60 Est GFR (Non-Af Amer) > 60 BUN/Creatinine Ratio 40 H Glucose 102 H POC Glucose 111 H Calculated Osmolality 300 Calcium 9.1 Magnesium 2.0 - Impressions Impressions Head CT 12/20/16 08:07 IMPRESSION: No acute intracranial abnormality. Small air-fluid level within a posterior right mastoid air cell. D/ / Purvi Abdi MD / Purvi Abdi MD Interpreting Provider: Purvi Abdi MD - ABG Interpretation ABG results: ABG ABG pH 7.48 pH Units (7.32-7.45) H 12/17/16 05:15 ABG pCO2 35 mmHg (35-45) 12/17/16 05:15 ABG pO2 137 mmHg (85-104) H 12/17/16 05:15 ABG O2 Saturation 99 % (95-98) H 12/17/16 05:15 PT/INR, D-dimer PT 14.9 Seconds (9.4-12.1) H 12/15/16 05:10 Consult Discharge Plan - Plan Referrals: NO,PCP [Non-Partnered Physician] -
[2016-12-21] MEDS: Ipratropium/Albuterol Neb 3 ML IH SCH ×4 (03:41→21:44)
[2016-12-21] MEDS: *HR* Heparin 5,000 UNIT/ML VIAL SQ SCH ×3 (04:48→20:54)
[2016-12-21] MEDS: Lacri-Lube 3.5 GM TUBE BOTH EYES SCH ×5 (04:50→21:14)
[2016-12-21 05:28] LABS: Basophils % 0.1 %; Eosinophils % 0.1 %; Hematocrit 31.5 % (35.3-44.9); Hemoglobin 10.8 g/dL (11.5-15.4); Immature Granulocytes % 1.6 % (0-4); Lymphocytes # 1.3 K/mcL (0.6-4.6); Mean Corpuscular HGB Conc 34.3 g/dL (31.6-35.5); Mean Corpuscular Hemoglobin 31.9 pg (28.0-33.3); Mean Corpuscular Volume 92.9 fL (83.0-100.0); Mean Platelet Volume 10.5 fL (9.4-12.4); Monocytes # 0.8 K/mcL (0.0-1.3); Monocytes % 7.8 %; Neutrophils # 8.2 K/mcL (1.6-8.9); Platelet Count 236 K/mcL (140-400); Red Blood Count 3.39 M/mcL (3.82-4.97); Red Cell Distribution Width 14.8 % (11.5-14.5); Segmented Neutrophils % 78.4 %
[2016-12-21 05:51] LABS: BUN/Creatinine Ratio 44 (6-26); Blood Urea Nitrogen 24 mg/dL (7-20); Calcium 9.1 mg/dL (8.6-10.8); Carbon Dioxide 29 mEq/L (19-29); Chloride 101 mEq/L (98-109); Glucose 93 mg/dL (70-99); Magnesium 1.9 mg/dL (1.6-2.6); Osmolality,Calculated 292 (280-300); Phosphorous 3.5 mg/dL (2.3-4.7); Potassium 3.4 mEq/L (3.5-4.5); Sodium 139 mEq/L (136-145); eGFR For African Americans > 60 (> 60); eGFR For Non-African Americans > 60 (> 60)
[2016-12-21] MEDS: Insulin LISPRO 300 UNITS/3 ML VIAL SQ SCH ×3 (06:16→18:07)
--- NOTE | 2016-12-21 07:27 | Pulmonology Progress Note ---
<Rachel Lara - Last Filed: 12/21/16 15:37> Date of Encounter: 12/21/16 Time of Encounter: 07:26 Assessment and Plan (1) Sepsis Current Visit: Yes Status: Acute Upon admission, patient had tachycardia, hypotension, tachypnea, elevated WBC. 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 WBC normalized. Legionella and strep pneumo antigen negative Sputum culture and urine culture grew e. coli Blood culture grew staph epidermidis repeat head CT 12/16, 12/20 stable The patient's level of consciousness has not improved since admission, neuro has examined the patient and feels that the patient is not locked in and has a poor prognosis. Patient has not tolerated CPAP mode on the ventilator this morning, has been off of sedation for >120 hours Patient had episodes of hypoxia this morning and required additional suctioning. Chest x-ray appears stable Care conference yesterday with patient mother and father, no decisions made regarding code status and plans for potential reintubation once patient is extubated. Plan: -Await decision for medical wishes, once obtained plan to proceed with tracheostomy, PEG tube, and LTAC placement -20mg lasix this morning -CPAP trial today as tolerated -appreciate neuro input Qualifiers: Sepsis type: Escherichia coli Qualified Code(s): A41.51 - Sepsis due to Escherichia coli [E. coli] (2) Acute and chronic respiratory failure Current Visit: Yes Status: Acute Likely secondary to aspiration pneumonia. Patient tolerating CPAP trial, has been off sedation >120 hours Care conference completed 12/20/2016 to discuss code status and family wishes in the event the patient may need reintubation following extubation during this visit. Decision was made at this time. Awaiting decision from family, patient will most likely need tracheostomy, PEG tube placement, LTAC placement for long- term care. Patient has complex family/social dynamic, SW very familiar with family and situation. Plan: -CPAP trial today, plan to wean and extubate as possible after discussion with family. Qualifiers: Respiratory failure complication: hypoxia Qualified Code(s): J96.21 - Acute and chronic respiratory failure with hypoxia (3) Acute renal failure Current Visit: Yes Status: Resolved Resolved Qualifiers: Acute renal failure type: unspecified Qualified Code(s): N17.9 - Acute kidney failure, unspecified (4) Altered level of consciousness Current Visit: Yes Status: Acute Patient was found by mother and daughter to be unresponsive for an unknown period of time. Cause unknown, but likely secondary to drug use, aspiration pneumonia, and sepsis. UDS positive for opiates, benzos, marijuana. Concern for anoxic brain injury. (5) Aspiration pneumonia Current Visit: No Status: Acute CXR showed bilaterla pneumonia with chronic underlying changes. 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 Completed 7 days of cefepime Qualifiers: Aspiration pneumonia type: unspecified Laterality: bilateral Lung location: unspecified part of lung Qualified Code(s): J69.0 - Pneumonitis due to inhalation of food and vomit (6) Cardiac arrest Current Visit: Yes Status: Acute Patient had episode of cardiac arrest in ED before admission to ICU. She completed hypothermic protocol yesterday. Echo showed LVEF 60-65% with no dysfunction. HR labile, 100-50 Plan: -Continue cardiac monitoring. 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 Continue bronchodilators, steroids, antibiotics, ventilatory support. Plan: -CPAP trial today. extubate if tolerated. Qualifiers: COPD type: unspecified COPD Qualified Code(s): J44.9 - Chronic obstructive pulmonary disease, unspecified (10) Norovirus Current Visit: Yes Status: Acute Resolved, had 1 bowel movements yesterday (11) DVT prophylaxis Current Visit: Yes Status: Acute Hep SQ Neuro: Found unresponsive/AMS cause unknown - concern for drug overdose or aspiration pneumonia. UDS + opiates, benzos and marijuana. Hx glioma, substance abuse. Head CT negative, repeat is stable. Concern for possible anoxic injury s/p arrest. Sedation has been held 96 hours, spontaneous eye movements, non-purposeful movements. Awaiting family decision on care, patient will ultimately need tracheostomy, PEG, LTAC. Pulm: Acute respiratory failure likely secondary to B/L aspiration pneumonia and COPD. Sputum culture + e. Coli. Currently intubated on CPAP setting, tolerating and breathing above settings. On cefepime, bronchodilators and steroids. CPAP trial today, consider extubation once wishes for reintubation established with family. Continue decadron 4mgIV BID. Cardiac: s/p cardiac arrest, hypothermia protocol complete. RRR, normotensive. HR more labile today, 50-100. ECHO with EF of 65%, no dysfunction. stable, continue to monitor GI: Non-anion gap metabolic acidosis secondary to diarrhea from norovirus which has resolved, rectal tube removed. Patient receiving tube feeds, vital 50 . Renal: SIENA - Resolved. ID: Sepsis possibly secondary to pneumonia and UTI. Sputum and urine both growing e. Coli. Completed 7 days of cefepime. Monitor vitals and labs. Heme: heparin for DVT ppx; slight downtrend in H/H, suspect secondary to sepsis , s/p cardiac arrest, blood draws. Only once daily blood draws. Endo: Q6 accuchecks, SSI and hypoglycemic protocol. Code: Full Lines: Torrey hsieh, david, ET, OG Subjective Principal diagnosis: Acute respiratory failure, found unresponsive Interval history: The patient was seen and examined. She remains intubated without sedation. No acute events overnight. This morning she was unable to tolerate CPAP mode. She also had episodes of hypoxia and required suctioning. There was a care conference with her mother and father yesterday, no decisions for further care were made at that time. Objective PUL Vital signs: Last Vital Signs Temp 98.6 F 12/21/16 03:10 Pulse 55 12/21/16 06:00 Resp 14 12/21/16 06:06 BP 140/92 12/21/16 06:00 Pulse Ox 96 12/21/16 06:06 General appearance: other (intubated) Eyes: nonicteric ENT: oropharynx moist Neck: supple, no lymphadenopathy, no JVD Effort: normal Auscultation: bilateral: rales Cardiovascular: regular rate and rhythm Gastrointestinal: normoactive bowel sounds, soft, non-tender, non-distended Integumentary: normal Extremities: no cyanosis, no edema, no clubbing, pulses normal Musculoskeletal: no deformities pupils equal and round, unable to assess due to mental status, other (Patient has spontaneous eye movements, nonpurposeful movements. Patient responds to nonspecific stimuli, does not respond to verbal commands or voice. Patient yawning during exam, posturing) Ventilator Settings Ventilator Settings: Ventilator Settings, Last 8 Hours Ventilator Mode CPAP Ventilator Mode CPAP Ventilator Mode VC+ Ventilator Mode VC+ Ventilator Mode VC+ Ventilator Mode VC+ Ventilator Mode VC+ Ventilator Mode VC+ Ventilator Mode VC+ Ventilator Mode VC+ Ventilator Mode VC+ Ventilator Tidal Volume 550 Setting Ventilator Tidal Volume 550 Setting Ventilator Tidal Volume 550 Setting Ventilator Tidal Volume 550 Setting Ventilator Tidal Volume 550 Setting Ventilator Tidal Volume 550 Setting Ventilator Tidal Volume 550 Setting Ventilator Tidal Volume 550 Setting Ventilator Tidal Volume 550 Setting Ventilator Tidal Volume 550 Setting Ventilator Tidal Volume 550 Setting Ventilator Respiratory Rate 16 Setting Ventilator Respiratory Rate 16 Setting Ventilator Respiratory Rate 16 Setting Ventilator Respiratory Rate 16 Setting Ventilator Respiratory Rate 16 Setting Ventilator Respiratory Rate 16 Setting Ventilator Respiratory Rate 16 Setting Ventilator Respiratory Rate 16 Setting Ventilator Respiratory Rate 16 Setting Ventilator Respiratory Rate 16 Setting Actual Respiratory Rate 14 Actual Respiratory Rate 16 Actual Respiratory Rate 16 Actual Respiratory Rate 20 Actual Respiratory Rate 20 Actual Respiratory Rate 22 Actual Respiratory Rate 16 Actual Respiratory Rate 20 Actual Respiratory Rate 21 Actual Respiratory Rate 16 Actual Respiratory Rate 16 Positive End Expiratory 5 Pressure Positive End Expiratory 5 Pressure Positive End Expiratory 5 Pressure Positive End Expiratory 5 Pressure Positive End Expiratory 5 Pressure Positive End Expiratory 5 Pressure Positive End Expiratory 5 Pressure Positive End Expiratory 5 Pressure Positive End Expiratory 5 Pressure Positive End Expiratory 5 Pressure Positive End Expiratory 5 Pressure Peak Inspiratory Airway 18 Pressure Peak Inspiratory Airway 18 Pressure Peak Inspiratory Airway 27 Pressure Peak Inspiratory Airway 26 Pressure Peak Inspiratory Airway 27 Pressure Peak Inspiratory Airway 26 Pressure Peak Inspiratory Airway 27 Pressure Peak Inspiratory Airway 30 Pressure Peak Inspiratory Airway 26 Pressure Peak Inspiratory Airway 29 Pressure Peak Inspiratory Airway 30 Pressure Results - Laboratory Findings CBC and BMP: 12/21/16 05:21 12/21/16 05:21 ABG ABG pH 7.48 pH Units (7.32-7.45) H 12/17/16 05:15 ABG pCO2 35 mmHg (35-45) 12/17/16 05:15 ABG pO2 137 mmHg (85-104) H 12/17/16 05:15 ABG O2 Saturation 99 % (95-98) H 12/17/16 05:15 PT/INR, D-dimer PT 14.9 Seconds (9.4-12.1) H 12/15/16 05:10 Abnormal lab findings: Abnormal lab results RBC 3.39 M/mcL (3.82-4.97) L 12/21/16 05:21 Hgb 10.8 g/dL (11.5-15.4) L 12/21/16 05:21 Hct 31.5 % (35.3-44.9) L 12/21/16 05:21 RDW 14.8 % (11.5-14.5) H 12/21/16 05:21 Band Neutrophils % 17.0 % (0-4) H 12/15/16 05:10 Metamyelocytes % 4.0 % (0) H 12/14/16 23:35 Promyelocytes % 1.0 % (0) H 12/14/16 00:25 Nucleated RBCs/100 WBC 0.2 /100 WBC (0) H 12/20/16 03:45 Reactive Lymphocytes Present (Not Present) A 12/13/16 15:41 Clumped Platelets Few (Not Present) A 12/14/16 00:25 Polychromasia 1+ (Not Present) A 12/13/16 15:41 PT 14.9 Seconds (9.4-12.1) H 12/15/16 05:10 ABG pH 7.48 pH Units (7.32-7.45) H 12/17/16 05:15 ABG pO2 137 mmHg (85-104) H 12/17/16 05:15 ABG Total CO2 27.2 mEq/L (20-26) H 12/17/16 05:15 ABG O2 Saturation 99 % (95-98) H 12/17/16 05:15 Potassium 3.4 mEq/L (3.5-4.5) L 12/21/16 05:21 BUN 24 mg/dL (7-20) H 12/21/16 05:21 Creatinine 0.54 mg/dL (0.57-1.11) L 12/21/16 05:21 BUN/Creatinine Ratio 44 (6-26) H 12/21/16 05:21 POC Glucose 136 (58-89) H 12/20/16 23:19 AST 167 Units/L (5-34) H 12/14/16 05:44 ALT 60 Units/L (0-55) H 12/14/16 05:44 Troponin I 1.06 ng/mL (0-0.03) H* 12/14/16 05:44 B-Natriuretic Peptide 150 pg/mL (0-100) H 12/13/16 16:45 Serum Total Protein 5.5 g/dL (6.0-8.3) L 12/14/16 05:44 Albumin 2.3 g/dL (3.5-5.0) L 12/14/16 05:44 Albumin/Globulin Ratio 0.7 (1.1-2.2) L 12/14/16 05:44 Urine Color [place] (Yellow) A 12/13/16 15:06 Urine Clarity Turbid (Clear) A 12/13/16 15:06 Urine Protein 100 mg/dL (Neg-Trace) H 12/13/16 15:06 Urine Ketones 15 mg/dL (Negative) H 12/13/16 15:06 Urine Blood Large (Negative) H 12/13/16 15:06 Urine Bilirubin Moderate (Negative) H 12/13/16 15:06 Ur Leukocyte Esterase Large (Negative) H 12/13/16 15:06 Urine Microscopic RBC 50-100 per hpf (0-3) H 12/13/16 15:06 Urine Microscopic WBC 30-50 per hpf (0-3) H 12/13/16 15:06 Urine Bacteria Many per hpf (None-Few) H 12/13/16 15:06 Ur Culture Indicated? YES (NO) A 12/13/16 15:06 Stl Norovirus GI/GII PCR DETECTED (Not detect) A 12/13/16 21:44 Urine Opiates Screen Positive ng/mL (Ojbjbf=773) H 12/13/16 18:20 Acetaminophen < 1.0 mcg/mL (10-30) L 12/13/16 19:30 U Benzodiazepines Scrn Positive ng/mL (Vzdalf=917) H 12/13/16 18:20 U Marijuana (THC) Screen Positive ng/mL (Cutoff = 50) H 12/13/16 18:20 Staphylococcus sp PCR DETECTED (Not Detect) A 12/13/16 15:41 mecA-Methicil Res Gene DETECTED (Not Detect) A 12/13/16 15:41 - Microbiology Findings Microbiology Findings: Microbiology, Last 48 Hours 12/15/16 09:30 Blood Culture - Final Central Venous Catheter No growth. 12/15/16 09:36 Blood Culture - Final Peripheral Venipuncture No growth. 12/15/16 09:36 Blood Culture - Final Peripheral Venipuncture No growth. - Diagnostic Findings Additional studies: Head CT 12/20/16 08:07 IMPRESSION: No acute intracranial abnormality. Small air-fluid level within a posterior right mastoid air cell. D/ / Purvi Abdi MD / Purvi Abdi MD Interpreting Provider: Purvi Abdi MD Chest X-Ray 12/21/16 09:00 IMPRESSION: 1. ET tube projects approximately 3.5 cm above the poli in satisfactory position. 2. NG tube is seen beneath the diaphragm with the side hole and tip projecting over the fundus. 3. No consolidation or acute cardiopulmonary findings. D/ / 12/21/2016 10:26:18 Magi Bro MD / jose Interpreting Provider: Magi Bro MD - Clinical Findings Intake & Output: Intake & Output 12/20/16 12/20/16 12/21/16 15:59 23:59 07:59 Intake Total 0 / 0 458 / 458 195 / 195 Output Total 475 / 475 500 / 500 250 / 250 Balance -475 / -475 -42 / -42 -55 / -55 Weight 72 kg - VTE Documentation of Mechanical Device: Intermittent pneumatic compression device Consult Discharge Plan - Plan Referrals: NO,PCP [Non-Partnered Physician] - <Vega Horton W - Last Filed: 12/21/16 16:00> Date of Encounter: 12/21/16 Objective PUL Vital signs: Last Vital Signs Temp 99.2 F 12/21/16 15:42 Pulse 79 12/21/16 15:05 Resp 16 12/21/16 15:13 BP 122/85 12/21/16 15:13 Pulse Ox 95 12/21/16 15:13 Ventilator Settings Ventilator Settings: Ventilator Settings, Last 8 Hours Ventilator Mode VC+ Ventilator Mode VC+ Ventilator Mode VC+ Ventilator Mode VC+ Ventilator Mode VC+ Ventilator Mode VC+ Ventilator Mode CPAP Ventilator Tidal Volume 550 Setting Ventilator Tidal Volume 550 Setting Ventilator Tidal Volume 550 Setting Ventilator Tidal Volume 550 Setting Ventilator Tidal Volume 550 Setting Ventilator Tidal Volume 550 Setting Ventilator Tidal Volume 550 Setting Ventilator Respiratory Rate 16 Setting Ventilator Respiratory Rate 16 Setting Ventilator Respiratory Rate 16 Setting Ventilator Respiratory Rate 16 Setting Ventilator Respiratory Rate 16 Setting Ventilator Respiratory Rate 16 Setting Actual Respiratory Rate 16 Actual Respiratory Rate 19 Actual Respiratory Rate 19 Actual Respiratory Rate 22 Actual Respiratory Rate 17 Actual Respiratory Rate 22 Actual Respiratory Rate 14 Positive End Expiratory 5 Pressure Positive End Expiratory 5 Pressure Positive End Expiratory 5 Pressure Positive End Expiratory 5 Pressure Positive End Expiratory 5 Pressure Positive End Expiratory 5 Pressure Positive End Expiratory 5 Pressure Peak Inspiratory Airway 32 Pressure Peak Inspiratory Airway 26 Pressure Peak Inspiratory Airway 26 Pressure Peak Inspiratory Airway 26 Pressure Peak Inspiratory Airway 31 Pressure Peak Inspiratory Airway 26 Pressure Peak Inspiratory Airway 18 Pressure Results - Laboratory Findings CBC and BMP: 12/21/16 05:21 12/21/16 05:21 ABG ABG pH 7.48 pH Units (7.32-7.45) H 12/17/16 05:15 ABG pCO2 35 mmHg (35-45) 12/17/16 05:15 ABG pO2 137 mmHg (85-104) H 12/17/16 05:15 ABG O2 Saturation 99 % (95-98) H 12/17/16 05:15 PT/INR, D-dimer PT 14.9 Seconds (9.4-12.1) H 12/15/16 05:10 Abnormal lab findings: Abnormal lab results RBC 3.39 M/mcL (3.82-4.97) L 12/21/16 05:21 Hgb 10.8 g/dL (11.5-15.4) L 12/21/16 05:21 Hct 31.5 % (35.3-44.9) L 12/21/16 05:21 RDW 14.8 % (11.5-14.5) H 12/21/16 05:21 Band Neutrophils % 17.0 % (0-4) H 12/15/16 05:10 Metamyelocytes % 4.0 % (0) H 12/14/16 23:35 Promyelocytes % 1.0 % (0) H 12/14/16 00:25 Nucleated RBCs/100 WBC 0.2 /100 WBC (0) H 12/20/16 03:45 Reactive Lymphocytes Present (Not Present) A 12/13/16 15:41 Clumped Platelets Few (Not Present) A 12/14/16 00:25 Polychromasia 1+ (Not Present) A 12/13/16 15:41 PT 14.9 Seconds (9.4-12.1) H 12/15/16 05:10 ABG pH 7.48 pH Units (7.32-7.45) H 12/17/16 05:15 ABG pO2 137 mmHg (85-104) H 12/17/16 05:15 ABG Total CO2 27.2 mEq/L (20-26) H 12/17/16 05:15 ABG O2 Saturation 99 % (95-98) H 12/17/16 05:15 Potassium 3.4 mEq/L (3.5-4.5) L 12/21/16 05:21 BUN 24 mg/dL (7-20) H 12/21/16 05:21 Creatinine 0.54 mg/dL (0.57-1.11) L 12/21/16 05:21 BUN/Creatinine Ratio 44 (6-26) H 12/21/16 05:21 POC Glucose 105 (58-89) H 12/21/16 11:37 AST 167 Units/L (5-34) H 12/14/16 05:44 ALT 60 Units/L (0-55) H 12/14/16 05:44 Troponin I 1.06 ng/mL (0-0.03) H* 12/14/16 05:44 B-Natriuretic Peptide 150 pg/mL (0-100) H 12/13/16 16:45 Serum Total Protein 5.5 g/dL (6.0-8.3) L 12/14/16 05:44 Albumin 2.3 g/dL (3.5-5.0) L 12/14/16 05:44 Albumin/Globulin Ratio 0.7 (1.1-2.2) L 12/14/16 05:44 Urine Color [place] (Yellow) A 12/13/16 15:06 Urine Clarity Turbid (Clear) A 12/13/16 15:06 Urine Protein 100 mg/dL (Neg-Trace) H 12/13/16 15:06 Urine Ketones 15 mg/dL (Negative) H 12/13/16 15:06 Urine Blood Large (Negative) H 12/13/16 15:06 Urine Bilirubin Moderate (Negative) H 12/13/16 15:06 Ur Leukocyte Esterase Large (Negative) H 12/13/16 15:06 Urine Microscopic RBC 50-100 per hpf (0-3) H 12/13/16 15:06 Urine Microscopic WBC 30-50 per hpf (0-3) H 12/13/16 15:06 Urine Bacteria Many per hpf (None-Few) H 12/13/16 15:06 Ur Culture Indicated? YES (NO) A 12/13/16 15:06 Stl Norovirus GI/GII PCR DETECTED (Not detect) A 12/13/16 21:44 Urine Opiates Screen Positive ng/mL (Lcanve=253) H 12/13/16 18:20 Acetaminophen < 1.0 mcg/mL (10-30) L 12/13/16 19:30 U Benzodiazepines Scrn Positive ng/mL (Dddeij=807) H 12/13/16 18:20 U Marijuana (THC) Screen Positive ng/mL (Cutoff = 50) H 12/13/16 18:20 Staphylococcus sp PCR DETECTED (Not Detect) A 12/13/16 15:41 mecA-Methicil Res Gene DETECTED (Not Detect) A 12/13/16 15:41 - Microbiology Findings Microbiology Findings: Microbiology, Last 48 Hours 12/15/16 09:30 Blood Culture - Final Central Venous Catheter No growth. 12/15/16 09:36 Blood Culture - Final Peripheral Venipuncture No growth. 12/15/16 09:36 Blood Culture - Final Peripheral Venipuncture No growth. - Clinical Findings Intake & Output: Intake & Output 12/20/16 12/21/16 12/21/16 23:59 07:59 15:59 Intake Total 458 / 458 195 / 195 0 / 0 Output Total 500 / 500 250 / 250 1700 / 1700 Balance -42 / -42 -55 / -55 -1700 / -1700 Weight 72 kg - Attending Attestation I examined this patient and my medical decision-making was reviewed with the COOLING TOWER TECHNICIAN/PA/Advanced Practice Nurse/Resident Physician. I agree with the documented findings, disposition and treatment plan as described except to the extent set forth below. Patient seen and examined at bedside Labs, radiology, chart personally reviewed. All lines examined without evidence of infection. Neuropsych: Anoxic brain injury s/t hypoxia s/p ACLS. Poor prognosis for meaningful neurological recovery. Cont steroids for glioblastoma (chronic use) Pulm: Acute on chronic Hypoxic respiratory failure in part caused by presumed aspiration pneumonia with underlying COPD per history. More hypoxic today s/t broncospasm and pulmonary edema. Increase BD frequency and giving IV lasix today. Likely need Trach if full support decided by family. Cards. Hemodynamically stable. cont tele monitoring. FEN-GI: cont PPi proxphylaxis. cont enteral nutrition (at goal). Renal: siena resolved. cont daily monitoring of renal function ID: Stable off ABx Heme/Onc: Anemia stable H/H. suspect critical illness/blood draws no over s/s of bleeding. Cont DVT prophylaxis Endo: glucose monitored and stable Integ/MSK: Skin care per ICU protocol to prevent ulcers CODE: Full code with ongoing conversations between myself and palliative care/ social work team regarding goals of care in this complex family situation.
[2016-12-21] MEDS: Chlorhexidine Rinse 15 ML MOUTHWASH MM SCH ×2 (09:03→20:54)
[2016-12-21] MEDS: Dexamethasone 4 MG/ML VIAL IVP SCH ×2 (09:03→20:54)
[2016-12-21] MEDS: Pantoprazole 40 MG VIAL IVPB SCH (09:03)
[2016-12-21] MEDS: Budesonide/Formoterol 160/4.5 MDI IH SCH ×2 (09:27→21:44)
[2016-12-21] MEDS ORDERED: Furosemide 20 MG/2 ML VIAL IVP ONE (09:59)
[2016-12-22] MEDS: Lacri-Lube 3.5 GM TUBE BOTH EYES SCH ×7 (00:05→23:41)
[2016-12-22] MEDS: Insulin LISPRO 300 UNITS/3 ML VIAL SQ SCH ×5 (00:30→23:41)
[2016-12-22 02:56] LABS: Basophils % 0.2 %; Eosinophils % 0.1 %; Hematocrit 36.6 % (35.3-44.9); Hemoglobin 12.2 g/dL (11.5-15.4); Lymphocytes % 7.3 %; Mean Corpuscular HGB Conc 33.3 g/dL (31.6-35.5); Mean Corpuscular Hemoglobin 30.9 pg (28.0-33.3); Mean Corpuscular Volume 92.7 fL (83.0-100.0); Mean Platelet Volume 10.4 fL (9.4-12.4); Monocytes # 0.6 K/mcL (0.0-1.3); Monocytes % 4.2 %; Neutrophils # 11.4 K/mcL (1.6-8.9); Platelet Count 275 K/mcL (140-400); Red Blood Count 3.95 M/mcL (3.82-4.97); Red Cell Distribution Width 14.8 % (11.5-14.5); Segmented Neutrophils % 86.2 %
[2016-12-22 03:12] LABS: BUN/Creatinine Ratio 37 (6-26); Blood Urea Nitrogen 23 mg/dL (7-20); Calcium 9.4 mg/dL (8.6-10.8); Carbon Dioxide 27 mEq/L (19-29); Chloride 98 mEq/L (98-109); Glucose 109 mg/dL (70-99); Osmolality,Calculated 290 (280-300); Potassium 3.5 mEq/L (3.5-4.5); Sodium 138 mEq/L (136-145); eGFR For African Americans > 60 (> 60); eGFR For Non-African Americans > 60 (> 60)
[2016-12-22] MEDS: Ipratropium/Albuterol Neb 3 ML IH SCH ×4 (04:19→21:58)
[2016-12-22] MEDS: *HR* Heparin 5,000 UNIT/ML VIAL SQ SCH ×3 (06:08→22:10)
[2016-12-22] MEDS: Budesonide/Formoterol 160/4.5 MDI IH SCH ×2 (09:20→21:58)
--- NOTE | 2016-12-22 09:20 | Pulmonology Progress Note ---
Date of Encounter: 12/22/16 Time of Encounter: 09:20 Assessment and Plan (1) Anoxic brain injury Current Visit: Yes Status: Acute Neuropsych: Anoxic brain injury s/t hypoxia s/p ACLS. Poor prognosis for meaningful neurological recovery. Cont steroids for Glioma(chronic use). Stable exam today Pulm: Acute on chronic Hypoxic respiratory failure in part caused by presumed aspiration pneumonia with underlying COPD per history. Suspect cardiogenic pulmonary edema.responded to giving IV lasix . Likely need Trach if full support decided by family. Cards. Hemodynamically stable. cont tele monitoring. FEN-GI: cont PPi proxphylaxis. cont enteral nutrition (at goal). Renal: isiah resolved. cont daily monitoring of renal function ID: Sllight bump in WBC count today but remains afebrile and no other s/s of sespsis Heme/Onc: Stable H/H and Plts. Cont DVT prophylaxis Endo: glucose monitored and stable Integ/MSK: Skin care per ICU protocol to prevent ulcers CODE: Full code with ongoing conversations between myself and palliative care/ social work team regarding goals of care in this complex family situation. (2) Aspiration pneumonia Current Visit: No Status: Suspected Qualifiers: Aspiration pneumonia type: unspecified Laterality: bilateral Lung location: unspecified part of lung Qualified Code(s): J69.0 - Pneumonitis due to inhalation of food and vomit (3) Acute and chronic respiratory failure Current Visit: No Status: Acute Qualifiers: Respiratory failure complication: hypoxia and hypercapnia Qualified Code(s) : J96.21 - Acute and chronic respiratory failure with hypoxia; J96.22 - Acute and chronic respiratory failure with hypercapnia (4) Urinary tract infection Current Visit: No Status: Acute Qualifiers: Urinary tract infection type: site unspecified Hematuria presence: without hematuria Qualified Code(s): N39.0 - Urinary tract infection, site not specified (5) DVT prophylaxis Current Visit: No Status: Acute (6) Brain cancer Current Visit: No Status: Acute Qualifiers: 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 Qualified Code(s): 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 (7) DVT prophylaxis Current Visit: No Status: Acute (8) COPD (chronic obstructive pulmonary disease) Current Visit: Yes Status: Acute Qualifiers: COPD type: unspecified COPD Qualified Code(s): J44.9 - Chronic obstructive pulmonary disease, unspecified (9) Counseling regarding advanced care planning and goals of care Current Visit: Yes Status: Acute (10) Glioblastoma Current Visit: Yes Status: Acute Subjective Principal diagnosis: Acute respiratory failure, found unresponsive Interval history: No acute changes overnight she did good response to IV diuretic had poor parameters today on spontaneous breathing trial. Objective PUL Vital signs: Last Vital Signs Temp 99.1 F 12/22/16 08:00 Pulse 81 12/22/16 07:45 Resp 20 12/22/16 07:45 BP 111/72 12/22/16 07:45 Pulse Ox 98 12/22/16 07:45 General appearance: comatose Eyes: nonicteric ENT: other (Intubated) Auscultation: bilateral: diminished breath sounds, rales Cardiovascular: regular rate and rhythm Gastrointestinal: normoactive bowel sounds, soft Integumentary: normal Extremities: edema pupils equal and round (Slightly mydriatic; she continues to have fixed gaze with slight leftward deviation no longer having roving eye movements still exhibiting decorticate posturing but does have spontaneous movements but no purposeful movements she does have intact pain response) Ventilator Settings Ventilator Settings: Ventilator Settings, Last 8 Hours Ventilator Mode CPAP Ventilator Mode CPAP Ventilator Mode VC+ Ventilator Mode VC+ Ventilator Mode VC+ Ventilator Mode VC+ Ventilator Mode VC+ Ventilator Mode VC+ Ventilator Mode VC+ Ventilator Mode VC+ Ventilator Tidal Volume 550 Setting Ventilator Tidal Volume 550 Setting Ventilator Tidal Volume 550 Setting Ventilator Tidal Volume 550 Setting Ventilator Tidal Volume 550 Setting Ventilator Tidal Volume 550 Setting Ventilator Tidal Volume 550 Setting Ventilator Tidal Volume 550 Setting Ventilator Tidal Volume 550 Setting Ventilator Respiratory Rate 16 Setting Ventilator Respiratory Rate 16 Setting Ventilator Respiratory Rate 16 Setting Ventilator Respiratory Rate 16 Setting Ventilator Respiratory Rate 16 Setting Ventilator Respiratory Rate 16 Setting Ventilator Respiratory Rate 16 Setting Ventilator Respiratory Rate 16 Setting Actual Respiratory Rate 20 Actual Respiratory Rate 22 Actual Respiratory Rate 16 Actual Respiratory Rate 16 Actual Respiratory Rate 16 Actual Respiratory Rate 16 Actual Respiratory Rate 16 Actual Respiratory Rate 16 Actual Respiratory Rate 20 Actual Respiratory Rate 16 Positive End Expiratory 5 Pressure Positive End Expiratory 5 Pressure Positive End Expiratory 5 Pressure Positive End Expiratory 5 Pressure Positive End Expiratory 5 Pressure Positive End Expiratory 5 Pressure Positive End Expiratory 5 Pressure Positive End Expiratory 5 Pressure Positive End Expiratory 5 Pressure Positive End Expiratory 5 Pressure Peak Inspiratory Airway 14 Pressure Peak Inspiratory Airway 14 Pressure Peak Inspiratory Airway 30 Pressure Peak Inspiratory Airway 30 Pressure Peak Inspiratory Airway 31 Pressure Peak Inspiratory Airway 29 Pressure Peak Inspiratory Airway 29 Pressure Results - Laboratory Findings CBC and BMP: 12/22/16 02:40 12/22/16 02:40 ABG ABG pH 7.48 pH Units (7.32-7.45) H 12/17/16 05:15 ABG pCO2 35 mmHg (35-45) 12/17/16 05:15 ABG pO2 137 mmHg (85-104) H 12/17/16 05:15 ABG O2 Saturation 99 % (95-98) H 12/17/16 05:15 PT/INR, D-dimer PT 14.9 Seconds (9.4-12.1) H 12/15/16 05:10 Abnormal lab findings: Abnormal lab results WBC 13.3 K/mcL (4.3-11.1) H 12/22/16 02:40 RDW 14.8 % (11.5-14.5) H 12/22/16 02:40 Band Neutrophils % 17.0 % (0-4) H 12/15/16 05:10 Metamyelocytes % 4.0 % (0) H 12/14/16 23:35 Promyelocytes % 1.0 % (0) H 12/14/16 00:25 Neutrophils # 11.4 K/mcL (1.6-8.9) H 12/22/16 02:40 Nucleated RBCs/100 WBC 0.2 /100 WBC (0) H 12/20/16 03:45 Reactive Lymphocytes Present (Not Present) A 12/13/16 15:41 Clumped Platelets Few (Not Present) A 12/14/16 00:25 Polychromasia 1+ (Not Present) A 12/13/16 15:41 PT 14.9 Seconds (9.4-12.1) H 12/15/16 05:10 ABG pH 7.48 pH Units (7.32-7.45) H 12/17/16 05:15 ABG pO2 137 mmHg (85-104) H 12/17/16 05:15 ABG Total CO2 27.2 mEq/L (20-26) H 12/17/16 05:15 ABG O2 Saturation 99 % (95-98) H 12/17/16 05:15 BUN 23 mg/dL (7-20) H 12/22/16 02:40 BUN/Creatinine Ratio 37 (6-26) H 12/22/16 02:40 Glucose 109 mg/dL (70-99) H 12/22/16 02:40 AST 167 Units/L (5-34) H 12/14/16 05:44 ALT 60 Units/L (0-55) H 12/14/16 05:44 Troponin I 1.06 ng/mL (0-0.03) H* 12/14/16 05:44 B-Natriuretic Peptide 150 pg/mL (0-100) H 12/13/16 16:45 Serum Total Protein 5.5 g/dL (6.0-8.3) L 12/14/16 05:44 Albumin 2.3 g/dL (3.5-5.0) L 12/14/16 05:44 Albumin/Globulin Ratio 0.7 (1.1-2.2) L 12/14/16 05:44 Urine Color Bend (Yellow) A 12/13/16 15:06 Urine Clarity Turbid (Clear) A 12/13/16 15:06 Urine Protein 100 mg/dL (Neg-Trace) H 12/13/16 15:06 Urine Ketones 15 mg/dL (Negative) H 12/13/16 15:06 Urine Blood Large (Negative) H 12/13/16 15:06 Urine Bilirubin Moderate (Negative) H 12/13/16 15:06 Ur Leukocyte Esterase Large (Negative) H 12/13/16 15:06 Urine Microscopic RBC 50-100 per hpf (0-3) H 12/13/16 15:06 Urine Microscopic WBC 30-50 per hpf (0-3) H 12/13/16 15:06 Urine Bacteria Many per hpf (None-Few) H 12/13/16 15:06 Ur Culture Indicated? YES (NO) A 12/13/16 15:06 Stl Norovirus GI/GII PCR DETECTED (Not detect) A 12/13/16 21:44 Urine Opiates Screen Positive ng/mL (Bcnzrz=965) H 12/13/16 18:20 Acetaminophen < 1.0 mcg/mL (10-30) L 12/13/16 19:30 U Benzodiazepines Scrn Positive ng/mL (Trynqn=677) H 12/13/16 18:20 U Marijuana (THC) Screen Positive ng/mL (Cutoff = 50) H 12/13/16 18:20 Staphylococcus sp PCR DETECTED (Not Detect) A 12/13/16 15:41 mecA-Methicil Res Gene DETECTED (Not Detect) A 12/13/16 15:41 - Microbiology Findings Microbiology Findings: Microbiology, Last 48 Hours 12/15/16 09:30 Blood Culture - Final Central Venous Catheter No growth. 12/15/16 09:36 Blood Culture - Final Peripheral Venipuncture No growth. 12/15/16 09:36 Blood Culture - Final Peripheral Venipuncture No growth. - Clinical Findings Intake & Output: Intake & Output 12/21/16 12/22/16 12/22/16 23:59 07:59 15:59 Intake Total 0 / 0 533 / 533 Output Total 200 / 200 225 / 225 150 / 150 Balance -200 / -200 308 / 308 -150 / -150 Weight 69 kg - VTE Documentation of Mechanical Device: Graduated compression elastic hosiery Consult Discharge Plan - Plan Referrals: NO,PCP [Non-Partnered Physician] -
[2016-12-22] MEDS: Pantoprazole 40 MG VIAL IVPB SCH (09:53)
[2016-12-22] MEDS: Dexamethasone 4 MG/ML VIAL IVP SCH ×2 (09:53→20:29)
[2016-12-22] MEDS: Chlorhexidine Rinse 15 ML MOUTHWASH MM SCH ×2 (09:53→20:29)
[2016-12-23 03:45] LABS: Basophils % 0.2 %; Hematocrit 35.8 % (35.3-44.9); Hemoglobin 11.8 g/dL (11.5-15.4); Immature Granulocytes % 1.6 % (0-4); Lymphocytes % 6.1 %; Mean Corpuscular Hemoglobin 31.3 pg (28.0-33.3); Mean Platelet Volume 10.2 fL (9.4-12.4); Monocytes # 0.9 K/mcL (0.0-1.3); Monocytes % 4.3 %; Neutrophils # 17.9 K/mcL (1.6-8.9); Platelet Count 297 K/mcL (140-400); Red Blood Count 3.77 M/mcL (3.82-4.97); Red Cell Distribution Width 15.6 % (11.5-14.5); Segmented Neutrophils % 87.8 %
[2016-12-23 03:50] LABS: Lymphocytes # 1.2 K/mcL (0.6-4.6)
[2016-12-23] MEDS: Lacri-Lube 3.5 GM TUBE BOTH EYES SCH ×6 (03:52→22:31)
[2016-12-23 03:53] LABS: BUN/Creatinine Ratio 35 (6-26); Blood Urea Nitrogen 22 mg/dL (7-20); Calcium 9.4 mg/dL (8.6-10.8); Carbon Dioxide 25 mEq/L (19-29); Chloride 102 mEq/L (98-109); Glucose 130 mg/dL (70-99); Osmolality,Calculated 291 (280-300); Potassium 3.9 mEq/L (3.5-4.5); Sodium 138 mEq/L (136-145); eGFR For African Americans > 60 (> 60); eGFR For Non-African Americans > 60 (> 60)
[2016-12-23] MEDS: Ipratropium/Albuterol Neb 3 ML IH SCH ×4 (04:20→22:04)
[2016-12-23] MEDS: *HR* Heparin 5,000 UNIT/ML VIAL SQ SCH ×3 (06:28→21:26)
[2016-12-23] MEDS: Insulin LISPRO 300 UNITS/3 ML VIAL SQ SCH ×4 (06:28→23:45)
--- NOTE | 2016-12-23 07:32 | Pulmonology Progress Note ---
<Kayley Duran - Last Filed: 12/23/16 09:34> Date of Encounter: 12/23/16 Time of Encounter: 07:30 Assessment and Plan (1) Anoxic brain injury Current Visit: Yes Status: Acute Neuro: Found unresponsive/AMS cause unknown - concern for drug overdose or aspiration pneumonia. UDS + opiates, benzos and marijuana. Hx glioma, substance abuse. Head CT negative, repeat is stable. Concern for possible anoxic injury s/p arrest. Sedation has been held, spontaneous eye movements, non-purposeful movements. Awaiting family decision on care, patient will ultimately need tracheostomy, PEG, LTAC. Continue decadron 4mgIV BID (patient takes chronically for glioblastoma). Pulm: Acute respiratory failure likely secondary to B/L aspiration pneumonia and COPD. Sputum culture + e. Coli. Completed 7 days of cefepime. Intubated on bronchodilators and steroids. CPAP trials daily; consider extubation once wishes for reintubation established with family. Cardiac: s/p cardiac arrest, hypothermia protocol complete. RRR, normotensive. ECHO with EF of 65%, no dysfunction. stable, continue to monitor GI: Non-anion gap metabolic acidosis secondary to diarrhea from norovirus which has resolved, rectal tube removed. Patient receiving tube feeds, at goal. Renal: SIENA - Resolved. ID: Admitted (12/13) with sepsis possibly secondary to pneumonia and UTI. Sputum and urine both growing e. Coli. Completed 7 days of cefepime on 12/19. 12/23 Neutrophilic leukocytosis - richard cultures, chest x-ray, vancomycin and zosyn started. Heme: heparin for DVT ppx; H/H stable Endo: Q6 accuchecks, SSI and hypoglycemic protocol. Skin: Skin care per ICU protocol to prevent ulcers Code: Full code Lines: Power gliamara, hernandez, ET, OG (2) Acute and chronic respiratory failure Current Visit: Yes Status: Acute Qualifiers: Respiratory failure complication: hypoxia Qualified Code(s): J96.21 - Acute and chronic respiratory failure with hypoxia (3) Aspiration pneumonia Current Visit: No Status: Acute Qualifiers: Aspiration pneumonia type: unspecified Laterality: bilateral Lung location: unspecified part of lung Qualified Code(s): J69.0 - Pneumonitis due to inhalation of food and vomit (4) Urinary tract infection Current Visit: No Status: Acute Qualifiers: Urinary tract infection type: site unspecified Hematuria presence: without hematuria Qualified Code(s): N39.0 - Urinary tract infection, site not specified (5) Counseling regarding advanced care planning and goals of care Current Visit: Yes Status: Acute (6) COPD (chronic obstructive pulmonary disease) Current Visit: Yes Status: Acute Qualifiers: COPD type: unspecified COPD Qualified Code(s): J44.9 - Chronic obstructive pulmonary disease, unspecified (7) Glioblastoma Current Visit: Yes Status: Acute (8) Chronic use of steroids Current Visit: Yes Status: Chronic (9) Sepsis Current Visit: Yes Status: Resolved Qualifiers: Sepsis type: Escherichia coli Qualified Code(s): A41.51 - Sepsis due to Escherichia coli [E. coli] (10) Altered level of consciousness Current Visit: Yes Status: Acute (11) Cardiac arrest Current Visit: Yes Status: Acute (12) Acute renal failure Current Visit: Yes Status: Resolved Qualifiers: Acute renal failure type: unspecified Qualified Code(s): N17.9 - Acute kidney failure, unspecified (13) Norovirus Current Visit: Yes Status: Resolved Subjective Principal diagnosis: Acute respiratory failure, found unresponsive Interval history: No changes overnight. Objective PUL Vital signs: Last Vital Signs Temp 98.9 F 12/23/16 04:00 Pulse 98 12/23/16 07:22 Resp 22 12/23/16 07:22 BP 111/68 12/23/16 07:22 Pulse Ox 100 12/23/16 07:22 General appearance: other (Intubated on mechanical ventilation) ENT: oropharynx moist Neck: supple Effort: normal Auscultation: bilateral: diminished breath sounds, rales Cardiovascular: regular rate and rhythm Gastrointestinal: normoactive bowel sounds, soft Extremities: no edema Gait: other (Decorticate posturing, no purposeful movements) other (No purposeful movements, fixed gaze) Ventilator Settings Ventilator Settings: Ventilator Settings, Last 8 Hours Ventilator Mode CPAP Ventilator Mode CPAP Ventilator Mode VC+ Ventilator Mode VC+ Ventilator Mode VC+ Ventilator Mode VC+ Ventilator Mode VC+ Ventilator Tidal Volume 550 Setting Ventilator Tidal Volume 550 Setting Ventilator Tidal Volume 550 Setting Ventilator Tidal Volume 550 Setting Ventilator Tidal Volume 550 Setting Ventilator Tidal Volume 550 Setting Ventilator Respiratory Rate 16 Setting Ventilator Respiratory Rate 16 Setting Ventilator Respiratory Rate 16 Setting Ventilator Respiratory Rate 16 Setting Ventilator Respiratory Rate 16 Setting Actual Respiratory Rate 19 Actual Respiratory Rate 19 Actual Respiratory Rate 16 Actual Respiratory Rate 16 Actual Respiratory Rate 16 Actual Respiratory Rate 19 Actual Respiratory Rate 17 Positive End Expiratory 5 Pressure Positive End Expiratory 5 Pressure Positive End Expiratory 5 Pressure Positive End Expiratory 5 Pressure Positive End Expiratory 5 Pressure Positive End Expiratory 5 Pressure Positive End Expiratory 5 Pressure Peak Inspiratory Airway 19 Pressure Peak Inspiratory Airway 19 Pressure Peak Inspiratory Airway 27 Pressure Peak Inspiratory Airway 23 Pressure Peak Inspiratory Airway 27 Pressure Peak Inspiratory Airway 27 Pressure Peak Inspiratory Airway 27 Pressure Results - Laboratory Findings CBC and BMP: 12/23/16 03:28 12/23/16 03:28 ABG ABG pH 7.48 pH Units (7.32-7.45) H 12/17/16 05:15 ABG pCO2 35 mmHg (35-45) 12/17/16 05:15 ABG pO2 137 mmHg (85-104) H 12/17/16 05:15 ABG O2 Saturation 99 % (95-98) H 12/17/16 05:15 PT/INR, D-dimer PT 14.9 Seconds (9.4-12.1) H 12/15/16 05:10 Abnormal lab findings: Abnormal lab results WBC 20.4 K/mcL (4.3-11.1) H D 12/23/16 03:28 RBC 3.77 M/mcL (3.82-4.97) L 12/23/16 03:28 RDW 15.6 % (11.5-14.5) H 12/23/16 03:28 Band Neutrophils % 17.0 % (0-4) H 12/15/16 05:10 Metamyelocytes % 4.0 % (0) H 12/14/16 23:35 Promyelocytes % 1.0 % (0) H 12/14/16 00:25 Neutrophils # 17.9 K/mcL (1.6-8.9) H 12/23/16 03:28 Nucleated RBCs/100 WBC 0.2 /100 WBC (0) H 12/20/16 03:45 Reactive Lymphocytes Present (Not Present) A 12/13/16 15:41 Clumped Platelets Few (Not Present) A 12/14/16 00:25 Polychromasia 1+ (Not Present) A 12/13/16 15:41 PT 14.9 Seconds (9.4-12.1) H 12/15/16 05:10 ABG pH 7.48 pH Units (7.32-7.45) H 12/17/16 05:15 ABG pO2 137 mmHg (85-104) H 12/17/16 05:15 ABG Total CO2 27.2 mEq/L (20-26) H 12/17/16 05:15 ABG O2 Saturation 99 % (95-98) H 12/17/16 05:15 BUN 22 mg/dL (7-20) H 12/23/16 03:28 BUN/Creatinine Ratio 35 (6-26) H 12/23/16 03:28 Glucose 130 mg/dL (70-99) H 12/23/16 03:28 POC Glucose 123 (58-89) H 12/22/16 23:35 AST 167 Units/L (5-34) H 12/14/16 05:44 ALT 60 Units/L (0-55) H 12/14/16 05:44 Troponin I 1.06 ng/mL (0-0.03) H* 12/14/16 05:44 B-Natriuretic Peptide 150 pg/mL (0-100) H 12/13/16 16:45 Serum Total Protein 5.5 g/dL (6.0-8.3) L 12/14/16 05:44 Albumin 2.3 g/dL (3.5-5.0) L 12/14/16 05:44 Albumin/Globulin Ratio 0.7 (1.1-2.2) L 12/14/16 05:44 Urine Color [place] (Yellow) A 12/13/16 15:06 Urine Clarity Turbid (Clear) A 12/13/16 15:06 Urine Protein 100 mg/dL (Neg-Trace) H 12/13/16 15:06 Urine Ketones 15 mg/dL (Negative) H 12/13/16 15:06 Urine Blood Large (Negative) H 12/13/16 15:06 Urine Bilirubin Moderate (Negative) H 12/13/16 15:06 Ur Leukocyte Esterase Large (Negative) H 12/13/16 15:06 Urine Microscopic RBC 50-100 per hpf (0-3) H 12/13/16 15:06 Urine Microscopic WBC 30-50 per hpf (0-3) H 12/13/16 15:06 Urine Bacteria Many per hpf (None-Few) H 12/13/16 15:06 Ur Culture Indicated? YES (NO) A 12/13/16 15:06 Stl Norovirus GI/GII PCR DETECTED (Not detect) A 12/13/16 21:44 Urine Opiates Screen Positive ng/mL (Eobjji=785) H 12/13/16 18:20 Acetaminophen < 1.0 mcg/mL (10-30) L 12/13/16 19:30 U Benzodiazepines Scrn Positive ng/mL (Tezzdd=838) H 12/13/16 18:20 U Marijuana (THC) Screen Positive ng/mL (Cutoff = 50) H 12/13/16 18:20 Staphylococcus sp PCR DETECTED (Not Detect) A 12/13/16 15:41 mecA-Methicil Res Gene DETECTED (Not Detect) A 12/13/16 15:41 - Microbiology Findings Microbiology Findings: Microbiology, Last 48 Hours 12/15/16 09:30 Blood Culture - Final Central Venous Catheter No growth. 12/15/16 09:36 Blood Culture - Final Peripheral Venipuncture No growth. 12/15/16 09:36 Blood Culture - Final Peripheral Venipuncture No growth. - Clinical Findings Intake & Output: Intake & Output 12/22/16 12/22/16 12/23/16 15:59 23:59 07:59 Intake Total 100 / 100 639 / 639 195 / 195 Output Total 250 / 250 575 / 575 250 / 250 Balance -150 / -150 64 / 64 -55 / -55 Weight 67.6 kg - VTE Documentation of Mechanical Device: Intermittent pneumatic compression device Consult Discharge Plan - Plan Referrals: NO,PCP [Non-Partnered Physician] - <Vega Horton - Last Filed: 12/23/16 10:05> Date of Encounter: 12/23/16 Assessment and Plan (1) Anoxic brain injury Current Visit: Yes Status: Acute (2) Aspiration pneumonia Current Visit: No Status: Suspected Qualifiers: Aspiration pneumonia type: unspecified Laterality: bilateral Lung location: unspecified part of lung Qualified Code(s): J69.0 - Pneumonitis due to inhalation of food and vomit (3) Acute and chronic respiratory failure Current Visit: No Status: Acute Qualifiers: Respiratory failure complication: hypoxia and hypercapnia Qualified Code(s) : J96.21 - Acute and chronic respiratory failure with hypoxia; J96.22 - Acute and chronic respiratory failure with hypercapnia (4) Urinary tract infection Current Visit: No Status: Acute Qualifiers: Urinary tract infection type: site unspecified Hematuria presence: without hematuria Qualified Code(s): N39.0 - Urinary tract infection, site not specified (5) DVT prophylaxis Current Visit: No Status: Acute (6) Brain cancer Current Visit: No Status: Acute Qualifiers: 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 Qualified Code(s): 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 (7) DVT prophylaxis Current Visit: No Status: Acute (8) COPD (chronic obstructive pulmonary disease) Current Visit: Yes Status: Acute Qualifiers: COPD type: unspecified COPD Qualified Code(s): J44.9 - Chronic obstructive pulmonary disease, unspecified (9) Counseling regarding advanced care planning and goals of care Current Visit: Yes Status: Acute (10) Glioblastoma Current Visit: Yes Status: Acute Objective PUL Vital signs: Last Vital Signs Temp 98.9 F 12/23/16 08:02 Pulse 98 12/23/16 08:25 Resp 27 12/23/16 09:34 BP 114/75 12/23/16 09:34 Pulse Ox 100 12/23/16 09:34 Ventilator Settings Ventilator Settings: Ventilator Settings, Last 8 Hours Ventilator Mode CPAP Ventilator Mode CPAP Ventilator Mode CPAP Ventilator Mode CPAP Ventilator Mode CPAP Ventilator Mode VC+ Ventilator Mode VC+ Ventilator Mode VC+ Ventilator Tidal Volume 550 Setting Ventilator Tidal Volume 550 Setting Ventilator Tidal Volume 550 Setting Ventilator Tidal Volume 550 Setting Ventilator Tidal Volume 550 Setting Ventilator Respiratory Rate 16 Setting Ventilator Respiratory Rate 16 Setting Ventilator Respiratory Rate 16 Setting Actual Respiratory Rate 27 Actual Respiratory Rate 25 Actual Respiratory Rate 20 Actual Respiratory Rate 19 Actual Respiratory Rate 19 Actual Respiratory Rate 16 Actual Respiratory Rate 16 Actual Respiratory Rate 16 Positive End Expiratory 5 Pressure Positive End Expiratory 5 Pressure Positive End Expiratory 5 Pressure Positive End Expiratory 5 Pressure Positive End Expiratory 5 Pressure Positive End Expiratory 5 Pressure Positive End Expiratory 5 Pressure Positive End Expiratory 5 Pressure Peak Inspiratory Airway 19 Pressure Peak Inspiratory Airway 20 Pressure Peak Inspiratory Airway 19 Pressure Peak Inspiratory Airway 19 Pressure Peak Inspiratory Airway 19 Pressure Peak Inspiratory Airway 27 Pressure Peak Inspiratory Airway 23 Pressure Peak Inspiratory Airway 27 Pressure Results - Laboratory Findings CBC and BMP: 12/23/16 03:28 12/23/16 03:28 ABG ABG pH 7.48 pH Units (7.32-7.45) H 12/17/16 05:15 ABG pCO2 35 mmHg (35-45) 12/17/16 05:15 ABG pO2 137 mmHg (85-104) H 12/17/16 05:15 ABG O2 Saturation 99 % (95-98) H 12/17/16 05:15 PT/INR, D-dimer PT 14.9 Seconds (9.4-12.1) H 12/15/16 05:10 Abnormal lab findings: Abnormal lab results WBC 20.4 K/mcL (4.3-11.1) H D 12/23/16 03:28 RBC 3.77 M/mcL (3.82-4.97) L 12/23/16 03:28 RDW 15.6 % (11.5-14.5) H 12/23/16 03:28 Band Neutrophils % 17.0 % (0-4) H 12/15/16 05:10 Metamyelocytes % 4.0 % (0) H 12/14/16 23:35 Promyelocytes % 1.0 % (0) H 12/14/16 00:25 Neutrophils # 17.9 K/mcL (1.6-8.9) H 12/23/16 03:28 Nucleated RBCs/100 WBC 0.2 /100 WBC (0) H 12/20/16 03:45 Reactive Lymphocytes Present (Not Present) A 12/13/16 15:41 Clumped Platelets Few (Not Present) A 12/14/16 00:25 Polychromasia 1+ (Not Present) A 12/13/16 15:41 PT 14.9 Seconds (9.4-12.1) H 12/15/16 05:10 ABG pH 7.48 pH Units (7.32-7.45) H 12/17/16 05:15 ABG pO2 137 mmHg (85-104) H 12/17/16 05:15 ABG Total CO2 27.2 mEq/L (20-26) H 12/17/16 05:15 ABG O2 Saturation 99 % (95-98) H 12/17/16 05:15 BUN 22 mg/dL (7-20) H 12/23/16 03:28 BUN/Creatinine Ratio 35 (6-26) H 12/23/16 03:28 Glucose 130 mg/dL (70-99) H 12/23/16 03:28 POC Glucose 123 (58-89) H 12/22/16 23:35 AST 167 Units/L (5-34) H 12/14/16 05:44 ALT 60 Units/L (0-55) H 12/14/16 05:44 Troponin I 1.06 ng/mL (0-0.03) H* 12/14/16 05:44 B-Natriuretic Peptide 150 pg/mL (0-100) H 12/13/16 16:45 Serum Total Protein 5.5 g/dL (6.0-8.3) L 12/14/16 05:44 Albumin 2.3 g/dL (3.5-5.0) L 12/14/16 05:44 Albumin/Globulin Ratio 0.7 (1.1-2.2) L 12/14/16 05:44 Urine Color [place] (Yellow) A 12/13/16 15:06 Urine Clarity Turbid (Clear) A 12/13/16 15:06 Urine Protein 100 mg/dL (Neg-Trace) H 12/13/16 15:06 Urine Ketones 15 mg/dL (Negative) H 12/13/16 15:06 Urine Blood Large (Negative) H 12/13/16 15:06 Urine Bilirubin Moderate (Negative) H 12/13/16 15:06 Ur Leukocyte Esterase Large (Negative) H 12/13/16 15:06 Urine Microscopic RBC 50-100 per hpf (0-3) H 12/13/16 15:06 Urine Microscopic WBC 30-50 per hpf (0-3) H 12/13/16 15:06 Urine Bacteria Many per hpf (None-Few) H 12/13/16 15:06 Ur Culture Indicated? YES (NO) A 12/13/16 15:06 Stl Norovirus GI/GII PCR DETECTED (Not detect) A 12/13/16 21:44 Urine Opiates Screen Positive ng/mL (Qfqidn=106) H 12/13/16 18:20 Acetaminophen < 1.0 mcg/mL (10-30) L 12/13/16 19:30 U Benzodiazepines Scrn Positive ng/mL (Bflcsg=442) H 12/13/16 18:20 U Marijuana (THC) Screen Positive ng/mL (Cutoff = 50) H 12/13/16 18:20 Staphylococcus sp PCR DETECTED (Not Detect) A 12/13/16 15:41 mecA-Methicil Res Gene DETECTED (Not Detect) A 12/13/16 15:41 - Microbiology Findings Microbiology Findings: Microbiology, Last 48 Hours 12/15/16 09:30 Blood Culture - Final Central Venous Catheter No growth. 12/15/16 09:36 Blood Culture - Final Peripheral Venipuncture No growth. 12/15/16 09:36 Blood Culture - Final Peripheral Venipuncture No growth. - Clinical Findings Intake & Output: Intake & Output 12/22/16 12/23/16 12/23/16 23:59 07:59 15:59 Intake Total 639 / 639 195 / 195 100 / 100 Output Total 575 / 575 250 / 250 175 / 175 Balance 64 / 64 -55 / -55 -75 / -75 Weight 67.6 kg - Attending Attestation I examined this patient and my medical decision-making was reviewed with the SURVEY CREW CHIEF/PA/Advanced Practice Nurse/Resident Physician. I agree with the documented findings, disposition and treatment plan as described except to the extent set forth below. Patient seen and examined at bedside Labs, radiology, chart personally reviewed. All lines examined without evidence of infection. Neuropsych: Anoxic brain injury with persistent vegetative state no change in neuro exam today history of glioma continue Decadron Pulm: Acute on chronic hypoxic hypercarbic respiratory failure intubated on vent minimal settings at present failed spontaneous breathing trial will likely need trach next week depending on goals of care. Mild pulmonary edema on exam. Repeat chest x-ray to evaluate for developing pneumonia Cards: Slight increase in tachycardia over the last 24 hours likely related to infection FEN-GI: Enteral nutrition given will likely need PEG tube placement; PPI prophylaxis given Renal: No AK I continue to monitor ID: Persistent leukocytosis over the last 48 hours suspect healthcare associated infection cultures sent empiric antimicrobials given. Heme/Onc: DVT prophylaxis given Endo: Glucose monitored Integ/MSK: Skin care per routine ICU for occult prevent skin ulcers CODE: Full code resume filmy discussions with high school social studies tutor primary service and family members regarding ultimate goals of care if agreed for aggressive care would likely need trach PEG and transfer to long-term acute care for ongoing management
[2016-12-23] MEDS: Chlorhexidine Rinse 15 ML MOUTHWASH MM SCH ×2 (09:14→20:20)
[2016-12-23] MEDS: Dexamethasone 4 MG/ML VIAL IVP SCH ×2 (09:14→20:20)
[2016-12-23] MEDS: Pantoprazole 40 MG VIAL IVPB SCH (09:14)
[2016-12-23] MEDS: Budesonide/Formoterol 160/4.5 MDI IH SCH ×2 (09:34→22:04)
[2016-12-23] MEDS ORDERED: Vancomycin 1,000 MG in D5% in Water 250 ML IVPB SCH (10:00)
[2016-12-23] MEDS: Vancomycin 1,000 MG in D5% in Water 250 ML IVPB SCH ×2 (12:44→22:07)
[2016-12-23] MEDS: Piperacillin/Tazobactam 3.375 GM in D5% in Water (Mini-Bag+) 100 ML IVPB SCH ×2 (16:06→23:29)
[2016-12-24] MEDS: Lacri-Lube 3.5 GM TUBE BOTH EYES SCH ×6 (03:30→23:21)
[2016-12-24 03:35] LABS: Mean Corpuscular HGB Conc 32.4 g/dL (31.6-35.5); Mean Corpuscular Hemoglobin 30.8 pg (28.0-33.3); Mean Corpuscular Volume 95.1 fL (83.0-100.0); Segmented Neutrophils % 89.9 %
[2016-12-24 03:36] LABS: Basophils % 0.1 %; Hematocrit 36.7 % (35.3-44.9); Hemoglobin 11.9 g/dL (11.5-15.4); Immature Granulocytes % 1.7 % (0-4); Lymphocytes % 4.6 %; Mean Platelet Volume 10.4 fL (9.4-12.4); Monocytes % 3.7 %; Neutrophils # 24.5 K/mcL (1.6-8.9); Platelet Count 326 K/mcL (140-400); Red Blood Count 3.86 M/mcL (3.82-4.97); Red Cell Distribution Width 15.4 % (11.5-14.5)
[2016-12-24 03:42] LABS: Lymphocytes # 1.3 K/mcL (0.6-4.6)
[2016-12-24 03:47] LABS: BUN/Creatinine Ratio 34 (6-26); Blood Urea Nitrogen 23 mg/dL (7-20); Calcium 9.6 mg/dL (8.6-10.8); Carbon Dioxide 24 mEq/L (19-29); Chloride 98 mEq/L (98-109); Glucose 117 mg/dL (70-99); Osmolality,Calculated 281 (280-300); Potassium 4.1 mEq/L (3.5-4.5); Sodium 133 mEq/L (136-145); eGFR For African Americans > 60 (> 60); eGFR For Non-African Americans > 60 (> 60)
[2016-12-24] MEDS: Ipratropium/Albuterol Neb 3 ML IH SCH ×4 (03:57→22:01)
[2016-12-24 04:07] LABS: Hypersegmented Neutrophils Present (Not Present)
[2016-12-24 04:08] LABS: Platelet Estimate Normal (Normal)
[2016-12-24] MEDS: Insulin LISPRO 300 UNITS/3 ML VIAL SQ SCH ×3 (05:02→18:39)
[2016-12-24] MEDS: *HR* Heparin 5,000 UNIT/ML VIAL SQ SCH ×3 (05:02→20:37)
[2016-12-24 06:30] LABS: ABG Base Excess 5.9 mEq/L (-2.0 to 3.0); ABG HCO3 27.5 mEQ/L (21-27); ABG Oxygen Saturation 98 % (95-98); ABG PCO2 30 mmHg (35-45); ABG PH 7.57 pH Units (7.32-7.45); ABG PO2 98 mmHg (85-104); ABG TCO2 28.4 mEq/L (20-26)
[2016-12-24 06:31] LABS: Blood Gas FiO2 40 %
--- NOTE | 2016-12-24 07:53 | Pulmonology Progress Note ---
<Rachel Lara - Last Filed: 12/24/16 10:36> Date of Encounter: 12/24/16 Time of Encounter: 07:52 Assessment and Plan (1) Sepsis Current Visit: Yes Status: Resolved Upon admission, patient had tachycardia, hypotension, tachypnea, elevated WBC. 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 Legionella and strep pneumo antigen negative Sputum culture and urine culture grew e. coli Blood culture grew staph epidermidis repeat head CT 12/16, 12/20 stable The patient's level of consciousness has not improved since admission, neuro has examined the patient and feels that the patient is not locked in and has a poor prognosis. Patient has been on CPAP mode this morning, has been off of sedation for >120 hours Care conference last week with patient mother and father, no decisions made regarding code status and plans for potential reintubation once patient is extubated. Patient has developed worsening leukocytosis in the last 2 days, WBC 27.5 with a left shift of 24.5 this morning. Patient was placed on vancomycin and Zosyn yesterday after being pancultured. Preliminary blood culture results are negative, sputum culture negative. Patient has been on IV dosing of her home Decadron dose, which has more bioavailability than her normal by mouth dose. Plan to switch her IV dosing to by mouth today and see if this improves her leukocytosis. Plan: -Vanc and Zosyn day 2: Plan to continue antibiotics for 24 more hours and then de-escalate pending culture results. -We will switch his Decadron dose to PO dose today. -Await decision for medical wishes, once obtained plan to proceed with tracheostomy, PEG tube, and LTAC placement -CPAP trial today as tolerated -appreciate neuro input Qualifiers: Sepsis type: Escherichia coli Qualified Code(s): A41.51 - Sepsis due to Escherichia coli [E. coli] (2) Acute and chronic respiratory failure Current Visit: Yes Status: Acute Likely secondary to aspiration pneumonia. Patient tolerating CPAP trial, has been off sedation >120 hours Care conference completed 12/20/2016 to discuss code status and family wishes in the event the patient may need reintubation following extubation during this visit. Decision was made at this time. Awaiting decision from family, patient will most likely need tracheostomy, PEG tube placement, LTAC placement for long- term care. Patient has complex family/social dynamic, SW very familiar with family and situation. Plan: -CPAP trial today, plan to wean and extubate as possible after discussion with family. Qualifiers: Respiratory failure complication: hypoxia Qualified Code(s): J96.21 - Acute and chronic respiratory failure with hypoxia (3) Acute renal failure Current Visit: Yes Status: Resolved Resolved Qualifiers: Acute renal failure type: unspecified Qualified Code(s): N17.9 - Acute kidney failure, unspecified (4) Altered level of consciousness Current Visit: Yes Status: Acute Patient was found by mother and daughter to be unresponsive for an unknown period of time. Cause unknown, but likely secondary to drug use, aspiration pneumonia, and sepsis. UDS positive for opiates, benzos, marijuana. Concern for anoxic brain injury. (5) Aspiration pneumonia Current Visit: No Status: Resolved CXR showed bilaterla pneumonia with chronic underlying changes. 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 Completed 7 days of cefepime Qualifiers: Aspiration pneumonia type: unspecified Laterality: bilateral Lung location: unspecified part of lung Qualified Code(s): J69.0 - Pneumonitis due to inhalation of food and vomit (6) Cardiac arrest Current Visit: Yes Status: Acute Patient had episode of cardiac arrest in ED before admission to ICU. She completed hypothermic protocol yesterday. Echo showed LVEF 60-65% with no dysfunction. HR labile, 100-50 Plan: -Continue cardiac monitoring. 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 Continue bronchodilators, steroids, antibiotics, ventilatory support. Plan: -CPAP trial today. extubate if tolerated. Qualifiers: COPD type: unspecified COPD Qualified Code(s): J44.9 - Chronic obstructive pulmonary disease, unspecified (10) Norovirus Current Visit: Yes Status: Resolved Resolved, had 1 bowel movements yesterday (11) DVT prophylaxis Current Visit: Yes Status: Acute Hep SQ Neuro: Found unresponsive/AMS cause unknown - concern for drug overdose or aspiration pneumonia. UDS + opiates, benzos and marijuana. Hx glioma, substance abuse. Head CT negative, repeat is stable. Concern for possible anoxic injury s/p arrest. Sedation has been held, spontaneous eye movements, non-purposeful movements are both decreasing in frequency. Awaiting family decision on care, patient will ultimately need tracheostomy, PEG, LTAC. Pulm: Acute respiratory failure likely secondary to B/L aspiration pneumonia and COPD. Sputum culture + e. Coli. Currently intubated on CPAP setting, tolerating and breathing above settings. On cefepime, bronchodilators and steroids. CPAP trial today, consider extubation once wishes for reintubation established with family. We will switch decadron 4mg PO BID. Cardiac: s/p cardiac arrest, hypothermia protocol complete. RRR, normotensive. HR more labile today, 50-100. ECHO with EF of 65%, no dysfunction. stable, continue to monitor GI: Non-anion gap metabolic acidosis secondary to diarrhea from norovirus which has resolved, rectal tube removed. Patient receiving tube feeds, vital 50 . Renal: SIENA - Resolved. ID: Sepsis possibly secondary to pneumonia and UTI. Sputum and urine both growing e. Coli. Completed 7 days of cefepime. Monitor vitals and labs. Leukocytosis has worsened over the last 2 days, patient is afebrile, pancultures negative today we will continue vancomycin and Zosyn 24 hours more and then plan to de-escalate. Suspect this is secondary to Decadron dosing. Heme: heparin for DVT ppx; slight downtrend in H/H, suspect secondary to sepsis , s/p cardiac arrest, blood draws. Only once daily blood draws. Endo: Q6 accuchecks, SSI and hypoglycemic protocol. Code: Full Lines: Power glide, hernandez, ET, OG Subjective Principal diagnosis: Acute respiratory failure, found unresponsive Interval history: The patient was seen and examined. She remains intubated without sedation. No acute events overnight. This morning she has been on CPAP mode since 619. Awaiting decision from family on proceeding with trach, PEG, LTAC. Objective PUL Vital signs: Last Vital Signs Temp 99.0 F 12/24/16 04:42 Pulse 100 12/24/16 06:00 Resp 20 12/24/16 06:25 BP 106/88 12/24/16 06:25 Pulse Ox 100 12/24/16 06:25 General appearance: no acute distress, other (intubated) Eyes: nonicteric ENT: oropharynx moist Neck: supple, no lymphadenopathy, no JVD Effort: normal Auscultation: bilateral: rhonchi Cardiovascular: regular rate and rhythm Gastrointestinal: normoactive bowel sounds, soft, non-tender, non-distended Integumentary: normal Extremities: no cyanosis, no edema, no clubbing, pulses normal Musculoskeletal: no deformities pupils equal and round, other (Patient has minimal non-spontaneous movements. Patient has posturing, positive Babinski on the right unable to elicit Babinski on the left.) Ventilator Settings Ventilator Settings: Ventilator Settings, Last 8 Hours Ventilator Mode CPAP Ventilator Mode VC+ Ventilator Mode VC+ Ventilator Mode VC+ Ventilator Mode VC+ Ventilator Mode VC+ Ventilator Mode VC+ Ventilator Mode VC+ Ventilator Mode VC+ Ventilator Mode VC+ Ventilator Mode VC+ Ventilator Tidal Volume 550 Setting Ventilator Tidal Volume 550 Setting Ventilator Tidal Volume 550 Setting Ventilator Tidal Volume 550 Setting Ventilator Tidal Volume 550 Setting Ventilator Tidal Volume 550 Setting Ventilator Tidal Volume 550 Setting Ventilator Tidal Volume 550 Setting Ventilator Tidal Volume 550 Setting Ventilator Tidal Volume 550 Setting Ventilator Respiratory Rate 16 Setting Ventilator Respiratory Rate 16 Setting Ventilator Respiratory Rate 16 Setting Ventilator Respiratory Rate 16 Setting Ventilator Respiratory Rate 16 Setting Ventilator Respiratory Rate 16 Setting Ventilator Respiratory Rate 16 Setting Ventilator Respiratory Rate 16 Setting Ventilator Respiratory Rate 16 Setting Ventilator Respiratory Rate 16 Setting Actual Respiratory Rate 20 Actual Respiratory Rate 21 Actual Respiratory Rate 21 Actual Respiratory Rate 21 Actual Respiratory Rate 16 Actual Respiratory Rate 21 Actual Respiratory Rate 21 Actual Respiratory Rate 23 Actual Respiratory Rate 20 Actual Respiratory Rate 20 Positive End Expiratory 5 Pressure Positive End Expiratory 5 Pressure Positive End Expiratory 5 Pressure Positive End Expiratory 5 Pressure Positive End Expiratory 5 Pressure Positive End Expiratory 5 Pressure Positive End Expiratory 5 Pressure Positive End Expiratory 5 Pressure Positive End Expiratory 5 Pressure Positive End Expiratory 5 Pressure Peak Inspiratory Airway 19 Pressure Peak Inspiratory Airway 30 Pressure Peak Inspiratory Airway 23 Pressure Peak Inspiratory Airway 23 Pressure Peak Inspiratory Airway 27 Pressure Peak Inspiratory Airway 23 Pressure Peak Inspiratory Airway 23 Pressure Results - Laboratory Findings CBC and BMP: 12/24/16 03:18 12/24/16 03:18 ABG ABG pH 7.57 pH Units (7.32-7.45) H 12/24/16 06:18 ABG pCO2 30 mmHg (35-45) L 12/24/16 06:18 ABG pO2 98 mmHg (85-104) 12/24/16 06:18 ABG O2 Saturation 98 % (95-98) 12/24/16 06:18 PT/INR, D-dimer PT 14.9 Seconds (9.4-12.1) H 12/15/16 05:10 Abnormal lab findings: Abnormal lab results WBC 27.2 K/mcL (4.3-11.1) H 12/24/16 03:18 RDW 15.4 % (11.5-14.5) H 12/24/16 03:18 Band Neutrophils % 17.0 % (0-4) H 12/15/16 05:10 Metamyelocytes % 4.0 % (0) H 12/14/16 23:35 Promyelocytes % 1.0 % (0) H 12/14/16 00:25 Neutrophils # 24.5 K/mcL (1.6-8.9) H 12/24/16 03:18 Nucleated RBCs/100 WBC 0.2 /100 WBC (0) H 12/20/16 03:45 Hypersegmented Neuts Present (Not Present) A 12/24/16 03:18 Reactive Lymphocytes Present (Not Present) A 12/13/16 15:41 Clumped Platelets Few (Not Present) A 12/14/16 00:25 Polychromasia 1+ (Not Present) A 12/13/16 15:41 PT 14.9 Seconds (9.4-12.1) H 12/15/16 05:10 ABG pH 7.57 pH Units (7.32-7.45) H 12/24/16 06:18 ABG pCO2 30 mmHg (35-45) L 12/24/16 06:18 ABG HCO3 27.5 mEQ/L (21-27) H 12/24/16 06:18 ABG Total CO2 28.4 mEq/L (20-26) H 12/24/16 06:18 ABG Base Excess 5.9 mEq/L (-2.0 to 3.0) H 12/24/16 06:18 Sodium 133 mEq/L (136-145) L 12/24/16 03:18 BUN 23 mg/dL (7-20) H 12/24/16 03:18 BUN/Creatinine Ratio 34 (6-26) H 12/24/16 03:18 Glucose 117 mg/dL (70-99) H 12/24/16 03:18 POC Glucose 140 (58-89) H 12/23/16 23:41 AST 167 Units/L (5-34) H 12/14/16 05:44 ALT 60 Units/L (0-55) H 12/14/16 05:44 Troponin I 1.06 ng/mL (0-0.03) H* 12/14/16 05:44 B-Natriuretic Peptide 150 pg/mL (0-100) H 12/13/16 16:45 Serum Total Protein 5.5 g/dL (6.0-8.3) L 12/14/16 05:44 Albumin 2.3 g/dL (3.5-5.0) L 12/14/16 05:44 Albumin/Globulin Ratio 0.7 (1.1-2.2) L 12/14/16 05:44 Urine Color Benton (Yellow) A 12/13/16 15:06 Urine Clarity Turbid (Clear) A 12/13/16 15:06 Urine Protein 100 mg/dL (Neg-Trace) H 12/13/16 15:06 Urine Ketones 15 mg/dL (Negative) H 12/13/16 15:06 Urine Blood Large (Negative) H 12/13/16 15:06 Urine Bilirubin Moderate (Negative) H 12/13/16 15:06 Ur Leukocyte Esterase Large (Negative) H 12/13/16 15:06 Urine Microscopic RBC 50-100 per hpf (0-3) H 12/13/16 15:06 Urine Microscopic WBC 30-50 per hpf (0-3) H 12/13/16 15:06 Urine Bacteria Many per hpf (None-Few) H 12/13/16 15:06 Ur Culture Indicated? YES (NO) A 12/13/16 15:06 Stl Norovirus GI/GII PCR DETECTED (Not detect) A 12/13/16 21:44 Urine Opiates Screen Positive ng/mL (Vcanks=454) H 12/13/16 18:20 Acetaminophen < 1.0 mcg/mL (10-30) L 12/13/16 19:30 U Benzodiazepines Scrn Positive ng/mL (Qpdomf=830) H 12/13/16 18:20 U Marijuana (THC) Screen Positive ng/mL (Cutoff = 50) H 12/13/16 18:20 Staphylococcus sp PCR DETECTED (Not Detect) A 12/13/16 15:41 mecA-Methicil Res Gene DETECTED (Not Detect) A 12/13/16 15:41 - Microbiology Findings Microbiology Findings: Microbiology, Last 48 Hours 12/23/16 20:52 Sputum Culture - Preliminary Sputum - Diagnostic Findings Additional studies: Chest CTA 12/13/16 15:47 IMPRESSION: No evidence of pulmonary embolism. Bilateral pneumonia as described above with partial collapse of the left lower lobe. D/ / Armand Aguilar MD / Armand Aguilar MD Interpreting Provider: Armand Aguilar MD X-Ray 12/13/16 18:08 IMPRESSION: Enteric tube in a post pyloric position. No evidence of bowel obstruction. D/ / Emanuel Strange MD / Emanuel Strange MD Interpreting Provider: Emanuel Strange MD Head CT 12/20/16 08:07 IMPRESSION: No acute intracranial abnormality. Small air-fluid level within a posterior right mastoid air cell. D/ / Purvi Abdi MD / Purvi Abdi MD Interpreting Provider: Purvi Abdi MD Chest X-Ray 12/23/16 09:27 IMPRESSION: No evidence of acute cardiopulmonary disease. No change in life support. D/ / 12/23/2016 15:33:47 Flavio Yang MD / shelbi Interpreting Provider: Flavio Yang MD - Clinical Findings Intake & Output: Intake & Output 12/23/16 12/23/16 12/24/16 15:59 23:59 07:59 Intake Total 582 / 582 1432 / 1432 110 / 110 Output Total 175 / 175 1000 / 1000 425 / 425 Balance 407 / 407 432 / 432 -315 / -315 Weight 61.5 kg - VTE Documentation of Mechanical Device: Graduated compression elastic hosiery Consult Discharge Plan - Plan Referrals: NO,PCP [Non-Partnered Physician] - <Cheryl Garcia - Last Filed: 12/24/16 16:31> Date of Encounter: 12/24/16 Objective PUL Vital signs: Last Vital Signs Temp 99.2 F 12/24/16 11:15 Pulse 92 12/24/16 13:40 Resp 27 12/24/16 15:46 BP 122/86 12/24/16 13:40 Pulse Ox 100 12/24/16 15:46 Ventilator Settings Ventilator Settings: Ventilator Settings, Last 8 Hours Ventilator Mode VC+ Ventilator Mode CPAP Ventilator Mode CPAP Ventilator Mode CPAP Ventilator Mode CPAP Ventilator Mode CPAP Ventilator Mode CPAP Ventilator Mode CPAP Ventilator Tidal Volume 550 Setting Ventilator Tidal Volume 550 Setting Ventilator Respiratory Rate 16 Setting Actual Respiratory Rate 22 Actual Respiratory Rate 27 Actual Respiratory Rate 27 Actual Respiratory Rate 27 Positive End Expiratory 5 Pressure Positive End Expiratory 5 Pressure Positive End Expiratory 5 Pressure Positive End Expiratory 5 Pressure Positive End Expiratory 5 Pressure Peak Inspiratory Airway 28 Pressure Peak Inspiratory Airway 19 Pressure Peak Inspiratory Airway 18 Pressure Peak Inspiratory Airway 16 Pressure Peak Inspiratory Airway 19 Pressure Peak Inspiratory Airway 19 Pressure Peak Inspiratory Airway 20 Pressure Peak Inspiratory Airway 18 Pressure Peak Inspiratory Airway 19 Pressure Results - Laboratory Findings CBC and BMP: 12/24/16 03:18 12/24/16 03:18 ABG ABG pH 7.54 pH Units (7.32-7.45) H 12/24/16 08:43 ABG pCO2 32 mmHg (35-45) L 12/24/16 08:43 ABG pO2 70 mmHg (85-104) L 12/24/16 08:43 ABG O2 Saturation 96 % (95-98) 12/24/16 08:43 PT/INR, D-dimer PT 14.9 Seconds (9.4-12.1) H 12/15/16 05:10 Abnormal lab findings: Abnormal lab results WBC 27.2 K/mcL (4.3-11.1) H 12/24/16 03:18 RDW 15.4 % (11.5-14.5) H 12/24/16 03:18 Band Neutrophils % 17.0 % (0-4) H 12/15/16 05:10 Metamyelocytes % 4.0 % (0) H 12/14/16 23:35 Promyelocytes % 1.0 % (0) H 12/14/16 00:25 Neutrophils # 24.5 K/mcL (1.6-8.9) H 12/24/16 03:18 Nucleated RBCs/100 WBC 0.2 /100 WBC (0) H 12/20/16 03:45 Hypersegmented Neuts Present (Not Present) A 12/24/16 03:18 Reactive Lymphocytes Present (Not Present) A 12/13/16 15:41 Clumped Platelets Few (Not Present) A 12/14/16 00:25 Polychromasia 1+ (Not Present) A 12/13/16 15:41 PT 14.9 Seconds (9.4-12.1) H 12/15/16 05:10 ABG pH 7.54 pH Units (7.32-7.45) H 12/24/16 08:43 ABG pCO2 32 mmHg (35-45) L 12/24/16 08:43 ABG pO2 70 mmHg (85-104) L 12/24/16 08:43 ABG HCO3 27.4 mEQ/L (21-27) H 12/24/16 08:43 ABG Total CO2 28.4 mEq/L (20-26) H 12/24/16 08:43 ABG Base Excess 5.1 mEq/L (-2.0 to 3.0) H 12/24/16 08:43 Sodium 133 mEq/L (136-145) L 12/24/16 03:18 BUN 23 mg/dL (7-20) H 12/24/16 03:18 BUN/Creatinine Ratio 34 (6-26) H 12/24/16 03:18 Glucose 117 mg/dL (70-99) H 12/24/16 03:18 POC Glucose 114 (58-89) H 12/24/16 11:44 AST 167 Units/L (5-34) H 12/14/16 05:44 ALT 60 Units/L (0-55) H 12/14/16 05:44 Troponin I 1.06 ng/mL (0-0.03) H* 12/14/16 05:44 B-Natriuretic Peptide 150 pg/mL (0-100) H 12/13/16 16:45 Serum Total Protein 5.5 g/dL (6.0-8.3) L 12/14/16 05:44 Albumin 2.3 g/dL (3.5-5.0) L 12/14/16 05:44 Albumin/Globulin Ratio 0.7 (1.1-2.2) L 12/14/16 05:44 Urine Color Benton (Yellow) A 12/13/16 15:06 Urine Clarity Turbid (Clear) A 12/13/16 15:06 Urine Protein 100 mg/dL (Neg-Trace) H 12/13/16 15:06 Urine Ketones 15 mg/dL (Negative) H 12/13/16 15:06 Urine Blood Large (Negative) H 12/13/16 15:06 Urine Bilirubin Moderate (Negative) H 12/13/16 15:06 Ur Leukocyte Esterase Large (Negative) H 12/13/16 15:06 Urine Microscopic RBC 50-100 per hpf (0-3) H 12/13/16 15:06 Urine Microscopic WBC 30-50 per hpf (0-3) H 12/13/16 15:06 Urine Bacteria Many per hpf (None-Few) H 12/13/16 15:06 Ur Culture Indicated? YES (NO) A 12/13/16 15:06 Stl Norovirus GI/GII PCR DETECTED (Not detect) A 12/13/16 21:44 Urine Opiates Screen Positive ng/mL (Ijufbi=851) H 12/13/16 18:20 Acetaminophen < 1.0 mcg/mL (10-30) L 12/13/16 19:30 U Benzodiazepines Scrn Positive ng/mL (Avgyxm=685) H 12/13/16 18:20 U Marijuana (THC) Screen Positive ng/mL (Cutoff = 50) H 12/13/16 18:20 Staphylococcus sp PCR DETECTED (Not Detect) A 12/13/16 15:41 mecA-Methicil Res Gene DETECTED (Not Detect) A 12/13/16 15:41 - Microbiology Findings Microbiology Findings: Microbiology, Last 48 Hours 12/23/16 20:52 Sputum Culture - Preliminary Sputum - Clinical Findings Intake & Output: Intake & Output 12/24/16 12/24/16 12/24/16 07:59 15:59 23:59 Intake Total 110 / 110 Output Total 725 / 725 300 / 300 Balance -615 / -615 -300 / -300 Weight 61.5 kg - Attending Attestation I examined this patient and my medical decision-making was reviewed with the NETWORK DIRECTOR/PA/Advanced Practice Nurse/Resident Physician. I agree with the documented findings, disposition and treatment plan as described except to the extent set forth below. Patient seen and examined. Labs, radiology, chart personally reviewed. Agree with resident's history and physical, assessment, plan with following comments: CLEANING SPECIALIST: Patient doesn't follows commands, Pulmonary: Acceptable oxygenation and ventilation. I feel it will be appropriate to give her a chance and possibly extubate her before plan for tracheostomy. Cardiovascular: stable GI: Nutrition per dietary and GI prophylaxis per routine Heme: DVT prophylaxis per routine ID: Continue antibiotics and plan to de-escalation Renal; urine out put and renal funtion reviewed Endorcine: blood glucose is monitored Lines: all lines checked and no evidence of infections Skin: skin care to prevent pressure ulcers per nursing routine care Reviewed her papers from [place] and it appears her mother is her power of assistant city attorney and they discussed with her about the plan of care. Appreciate palliative care input and help. Overall prognosis is poor
[2016-12-24] MEDS: Pantoprazole 40 MG VIAL IVPB SCH (08:38)
[2016-12-24] MEDS: Piperacillin/Tazobactam 3.375 GM in D5% in Water (Mini-Bag+) 100 ML IVPB SCH ×2 (08:38→16:41)
[2016-12-24] MEDS: Chlorhexidine Rinse 15 ML MOUTHWASH MM SCH ×2 (08:38→20:37)
[2016-12-24] MEDS: Dexamethasone 4 MG/ML VIAL IVP SCH (08:39)
[2016-12-24 08:50] LABS: ABG Base Excess 5.1 mEq/L (-2.0 to 3.0); ABG HCO3 27.4 mEQ/L (21-27); ABG Oxygen Saturation 96 % (95-98); ABG PCO2 32 mmHg (35-45); ABG PH 7.54 pH Units (7.32-7.45); ABG PO2 70 mmHg (85-104); ABG TCO2 28.4 mEq/L (20-26)
[2016-12-24 08:52] LABS: Blood Gas FiO2 40 %
[2016-12-24] MEDS: Budesonide/Formoterol 160/4.5 MDI IH SCH ×2 (10:27→22:01)
[2016-12-24] MEDS ORDERED: Aminoglycoside Consult 1 EACH MC ONE (12:00)
[2016-12-24] MEDS: Vancomycin 1,000 MG in D5% in Water 250 ML IVPB SCH ×2 (13:40→23:18)
--- NOTE | 2016-12-24 16:00 | Palliative Progress Note ---
Date of Encounter: 12/24/16 Time of Encounter: 15:57 - Assessment and plan (1) Anoxic brain injury Current Visit: Yes Status: Acute (2) Acute and chronic respiratory failure Current Visit: No Status: Acute Qualifiers: Respiratory failure complication: hypoxia and hypercapnia Qualified Code(s) : J96.21 - Acute and chronic respiratory failure with hypoxia; J96.22 - Acute and chronic respiratory failure with hypercapnia (3) Counseling regarding advanced care planning and goals of care Current Visit: Yes Status: Acute Assessment and plan: Advanced directives obtained. Ms. Perez elected her mother-Timothy Lopez- as her agent of authority with limitations. Discussed document and authority/ limitations with Ms. Lopez (along with support person-Francia Pham). telephone services sales representative present during the meeting. Ms. Lopez verbally expressed her wishes that information be shared with Sandor Lopez (father), Elvira Lopez (grandmother), and Seda Bonilla (grandmother) . Discussed plan of care regarding ventilator support. Ms. Perez has been tolerating SBT. Awaiting decision from family regarding overall goal of care and re-intubation status. Discussed code status and recommendations from the medical team as discussed in the family meeting on 12/20/16. This was also reviewed with patient's father-Sandor Lopez. Awaiting family decision. Discussed case with primary nurse and Dr. Garcia. Medical team updated on agent of authority. (4) Aspiration pneumonia Current Visit: No Status: Suspected Qualifiers: Aspiration pneumonia type: unspecified Laterality: bilateral Lung location: unspecified part of lung Qualified Code(s): J69.0 - Pneumonitis due to inhalation of food and vomit (5) Cardiac arrest Current Visit: Yes Status: Acute - Time Spent With Patient Total time spent is greater than 50% in coordination of care (as documented) at patient's floor/unit and/or counseling patient: - Subjective Interval history: Ms. Perez remains in the ICU on mechanical ventilation without sedation. Movements are non-purposeful, does not follow commands, posturing noted. Tolerating SBT. - Constitutional Vitals: Abnormal lab results WBC 27.2 K/mcL (4.3-11.1) H 12/24/16 03:18 RDW 15.4 % (11.5-14.5) H 12/24/16 03:18 Band Neutrophils % 17.0 % (0-4) H 12/15/16 05:10 Metamyelocytes % 4.0 % (0) H 12/14/16 23:35 Promyelocytes % 1.0 % (0) H 12/14/16 00:25 Neutrophils # 24.5 K/mcL (1.6-8.9) H 12/24/16 03:18 Nucleated RBCs/100 WBC 0.2 /100 WBC (0) H 12/20/16 03:45 Hypersegmented Neuts Present (Not Present) A 12/24/16 03:18 Reactive Lymphocytes Present (Not Present) A 12/13/16 15:41 Clumped Platelets Few (Not Present) A 12/14/16 00:25 Polychromasia 1+ (Not Present) A 12/13/16 15:41 PT 14.9 Seconds (9.4-12.1) H 12/15/16 05:10 ABG pH 7.54 pH Units (7.32-7.45) H 12/24/16 08:43 ABG pCO2 32 mmHg (35-45) L 12/24/16 08:43 ABG pO2 70 mmHg (85-104) L 12/24/16 08:43 ABG HCO3 27.4 mEQ/L (21-27) H 12/24/16 08:43 ABG Total CO2 28.4 mEq/L (20-26) H 12/24/16 08:43 ABG Base Excess 5.1 mEq/L (-2.0 to 3.0) H 12/24/16 08:43 Sodium 133 mEq/L (136-145) L 12/24/16 03:18 BUN 23 mg/dL (7-20) H 12/24/16 03:18 BUN/Creatinine Ratio 34 (6-26) H 12/24/16 03:18 Glucose 117 mg/dL (70-99) H 12/24/16 03:18 POC Glucose 114 (58-89) H 12/24/16 11:44 AST 167 Units/L (5-34) H 12/14/16 05:44 ALT 60 Units/L (0-55) H 12/14/16 05:44 Troponin I 1.06 ng/mL (0-0.03) H* 12/14/16 05:44 B-Natriuretic Peptide 150 pg/mL (0-100) H 12/13/16 16:45 Serum Total Protein 5.5 g/dL (6.0-8.3) L 12/14/16 05:44 Albumin 2.3 g/dL (3.5-5.0) L 12/14/16 05:44 Albumin/Globulin Ratio 0.7 (1.1-2.2) L 12/14/16 05:44 Urine Color [place] (Yellow) A 12/13/16 15:06 Urine Clarity Turbid (Clear) A 12/13/16 15:06 Urine Protein 100 mg/dL (Neg-Trace) H 12/13/16 15:06 Urine Ketones 15 mg/dL (Negative) H 12/13/16 15:06 Urine Blood Large (Negative) H 12/13/16 15:06 Urine Bilirubin Moderate (Negative) H 12/13/16 15:06 Ur Leukocyte Esterase Large (Negative) H 12/13/16 15:06 Urine Microscopic RBC 50-100 per hpf (0-3) H 12/13/16 15:06 Urine Microscopic WBC 30-50 per hpf (0-3) H 12/13/16 15:06 Urine Bacteria Many per hpf (None-Few) H 12/13/16 15:06 Ur Culture Indicated? YES (NO) A 12/13/16 15:06 Stl Norovirus GI/GII PCR DETECTED (Not detect) A 12/13/16 21:44 Urine Opiates Screen Positive ng/mL (Srosdb=546) H 12/13/16 18:20 Acetaminophen < 1.0 mcg/mL (10-30) L 12/13/16 19:30 U Benzodiazepines Scrn Positive ng/mL (Wqrvtx=065) H 12/13/16 18:20 U Marijuana (THC) Screen Positive ng/mL (Cutoff = 50) H 12/13/16 18:20 Staphylococcus sp PCR DETECTED (Not Detect) A 12/13/16 15:41 mecA-Methicil Res Gene DETECTED (Not Detect) A 12/13/16 15:41 Exam: 36 year old, intubated, on mechanical ventilation without sedation, tolerating SBT. Movements non-purposeful - Eye Eye exam: Present: PERRL - ENT ENT exam: Present: mucous membranes moist - Respiratory Respiratory exam: Present: decreased breath sounds Additional comments: on mechanical ventilation - Cardiovascular Cardiovascular exam: Present: RRR (rate 90) - GI/Abdominal GI/Abdominal exam: Present: soft. Absent: tenderness - Extremities Exam Additional comments: + foot drop bilaterally, posturing noted - Neurological Exam Additional comments: opens eyes, but not to command, no purposeful movements. - Psychiatric Psychiatric exam: Absent: agitated Palliative Quality Palliative Quality: Screen for Code Status: NA (pt not responsive, awaiting family meeting), Screen for Goals of Care: NA, Screen for Pain: NA, If Pain Regimen Started, Initiate Bowel Regimen: NA, Screen for Nausea/Vomitting: NA Code Status: 12/13/16 18:17 Resuscitation Status: Active [RES] Routine Comment: Resuscitation Status: Full Code - Labs CBC & Chem 7: 12/24/16 03:18 12/24/16 03:18 Labs: Laboratory Results - last 24 hr 12/23/16 12/23/16 12/23/16 05:06 17:20 23:41 WBC RBC Hgb Hct MCV MCH MCHC RDW Plt Count MPV Immature Gran % Seg Neutrophils % Lymphocytes % Monocytes % Eosinophils % Basophils % Neutrophils # Lymphocytes # Monocytes # Eosinophils # Basophils # Hypersegmented Neuts Platelet Estimate ABG pH ABG pCO2 ABG pO2 ABG HCO3 ABG Total CO2 ABG O2 Saturation ABG Base Excess Blood Gas Modality Inspired O2 Sodium Potassium Chloride Carbon Dioxide BUN Creatinine Est GFR ( Amer) Est GFR (Non-Af Amer) BUN/Creatinine Ratio Glucose POC Glucose 112 H 122 H 140 H Calculated Osmolality Calcium 12/24/16 12/24/16 12/24/16 03:18 03:18 06:18 WBC 27.2 H RBC 3.86 Hgb 11.9 Hct 36.7 MCV 95.1 MCH 30.8 MCHC 32.4 RDW 15.4 H Plt Count 326 MPV 10.4 Immature Gran % 1.7 Seg Neutrophils % 89.9 Lymphocytes % 4.6 Monocytes % 3.7 Eosinophils % 0.0 Basophils % 0.1 Neutrophils # 24.5 H Lymphocytes # 1.3 Monocytes # 1.0 Eosinophils # 0.0 Basophils # 0.0 Hypersegmented Neuts Present A Platelet Estimate Normal ABG pH 7.57 H ABG pCO2 30 L ABG pO2 98 ABG HCO3 27.5 H ABG Total CO2 28.4 H ABG O2 Saturation 98 ABG Base Excess 5.9 H Blood Gas Modality VC+ Inspired O2 40 Sodium 133 L Potassium 4.1 Chloride 98 Carbon Dioxide 24 BUN 23 H Creatinine 0.68 Est GFR ( Amer) > 60 Est GFR (Non-Af Amer) > 60 BUN/Creatinine Ratio 34 H Glucose 117 H POC Glucose Calculated Osmolality 281 Calcium 9.6 12/24/16 12/24/16 08:43 11:44 WBC RBC Hgb Hct MCV MCH MCHC RDW Plt Count MPV Immature Gran % Seg Neutrophils % Lymphocytes % Monocytes % Eosinophils % Basophils % Neutrophils # Lymphocytes # Monocytes # Eosinophils # Basophils # Hypersegmented Neuts Platelet Estimate ABG pH 7.54 H ABG pCO2 32 L ABG pO2 70 L ABG HCO3 27.4 H ABG Total CO2 28.4 H ABG O2 Saturation 96 ABG Base Excess 5.1 H Blood Gas Modality CPAP Inspired O2 40 Sodium Potassium Chloride Carbon Dioxide BUN Creatinine Est GFR ( Amer) Est GFR (Non-Af Amer) BUN/Creatinine Ratio Glucose POC Glucose 114 H Calculated Osmolality Calcium - ABG Interpretation ABG results: ABG ABG pH 7.54 pH Units (7.32-7.45) H 12/24/16 08:43 ABG pCO2 32 mmHg (35-45) L 12/24/16 08:43 ABG pO2 70 mmHg (85-104) L 12/24/16 08:43 ABG O2 Saturation 96 % (95-98) 12/24/16 08:43 PT/INR, D-dimer PT 14.9 Seconds (9.4-12.1) H 12/15/16 05:10 Consult Discharge Plan - Plan Referrals: NO,PCP [Non-Partnered Physician] -
[2016-12-25] MEDS: Insulin LISPRO 300 UNITS/3 ML VIAL SQ SCH ×5 (00:13→23:36)
[2016-12-25] MEDS: Piperacillin/Tazobactam 3.375 GM in D5% in Water (Mini-Bag+) 100 ML IVPB SCH ×2 (01:11→08:28)
[2016-12-25 03:38] LABS: Lymphocytes % 3.8 %; Mean Corpuscular HGB Conc 33.6 g/dL (31.6-35.5); Red Cell Distribution Width 15.3 % (11.5-14.5)
[2016-12-25 03:39] LABS: Basophils # 0.1 K/mcL (0.0-0.2); Basophils % 0.2 %; Hematocrit 38.1 % (35.3-44.9); Hemoglobin 12.8 g/dL (11.5-15.4); Immature Granulocytes % 2.7 % (0-4); Lymphocytes # 1.2 K/mcL (0.6-4.6); Mean Corpuscular Hemoglobin 31.8 pg (28.0-33.3); Mean Corpuscular Volume 94.8 fL (83.0-100.0); Mean Platelet Volume 10.6 fL (9.4-12.4); Monocytes # 1.4 K/mcL (0.0-1.3); Monocytes % 4.3 %; Neutrophils # 28.7 K/mcL (1.6-8.9); Platelet Count 332 K/mcL (140-400); Red Blood Count 4.02 M/mcL (3.82-4.97)
[2016-12-25 03:50] LABS: BUN/Creatinine Ratio 38 (6-26); Blood Urea Nitrogen 25 mg/dL (7-20); Calcium 9.7 mg/dL (8.6-10.8); Carbon Dioxide 25 mEq/L (19-29); Chloride 99 mEq/L (98-109); Glucose 112 mg/dL (70-99); Osmolality,Calculated 283 (280-300); Sodium 134 mEq/L (136-145); eGFR For African Americans > 60 (> 60); eGFR For Non-African Americans > 60 (> 60)
[2016-12-25 04:08] LABS: Platelet Estimate Normal (Normal)
[2016-12-25 04:09] LABS: Large Platelets Present (Not Present); Reactive Lymphocytes Present (Not Present)
[2016-12-25] MEDS: Lacri-Lube 3.5 GM TUBE BOTH EYES SCH ×6 (04:19→23:37)
[2016-12-25] MEDS: Ipratropium/Albuterol Neb 3 ML IH SCH ×4 (04:40→20:57)
[2016-12-25] MEDS: *HR* Heparin 5,000 UNIT/ML VIAL SQ SCH ×3 (05:23→21:33)
[2016-12-25] MEDS: Pantoprazole 40 MG VIAL IVPB SCH (08:28)
[2016-12-25] MEDS: Chlorhexidine Rinse 15 ML MOUTHWASH MM SCH ×2 (08:28→21:33)
--- NOTE | 2016-12-25 08:32 | Pulmonology Progress Note ---
<Rachel Lara - Last Filed: 12/25/16 14:35> Date of Encounter: 12/25/16 Time of Encounter: 08:30 Assessment and Plan (1) Sepsis Current Visit: Yes Status: Resolved Upon admission, patient had tachycardia, hypotension, tachypnea, elevated WBC. 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 Legionella and strep pneumo antigen negative Sputum culture and urine culture grew e. coli Blood culture grew staph epidermidis repeat head CT 12/16, 12/20 stable The patient's level of consciousness has not improved since admission, neuro has examined the patient and feels that the patient is not locked in and has a poor prognosis. Patient has been on CPAP mode this morning, has been off of sedation for >120 hours Care conference last week with patient mother and father, no decisions made regarding code status and plans for potential reintubation once patient is extubated. Patient has developed worsening leukocytosis in the last 2 days, WBC 32.2 with a left shift of 28.7 this morning. Patient was placed on vancomycin and Zosyn after being pancultured. Preliminary blood culture results are negative, sputum culture positive for gram negative rods, final sensitivities and organism pending. Plan: -Vanc and Zosyn day 3. Will stop both and switch to meropenem -Await decision for medical wishes, once obtained plan to proceed with tracheostomy, PEG tube, and LTAC placement -CPAP trial today as tolerated -appreciate neuro input Qualifiers: Sepsis type: Escherichia coli Qualified Code(s): A41.51 - Sepsis due to Escherichia coli [E. coli] (2) Acute and chronic respiratory failure Current Visit: Yes Status: Acute Likely secondary to aspiration pneumonia. Patient tolerating CPAP trial, has been off sedation >120 hours Care conference completed 12/20/2016 to discuss code status and family wishes in the event the patient may need reintubation following extubation during this visit. Decision was made at this time. Awaiting decision from family, patient will most likely need tracheostomy, PEG tube placement, LTAC placement for long- term care. Patient has complex family/social dynamic, SW very familiar with family and situation. Plan: -CPAP trial today, plan to wean and extubate as possible after discussion with family. Qualifiers: Respiratory failure complication: hypoxia Qualified Code(s): J96.21 - Acute and chronic respiratory failure with hypoxia (3) Altered level of consciousness Current Visit: Yes Status: Acute Patient was found by mother and daughter to be unresponsive for an unknown period of time. Cause unknown, but likely secondary to drug use, aspiration pneumonia, and sepsis. UDS positive for opiates, benzos, marijuana. Concern for anoxic brain injury. (4) Cardiac arrest Current Visit: Yes Status: Acute Patient had episode of cardiac arrest in ED before admission to ICU. She completed hypothermic protocol yesterday. Echo showed LVEF 60-65% with no dysfunction. HR labile, 100-50 Plan: -Continue cardiac monitoring. 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 Continue bronchodilators, steroids, antibiotics, ventilatory support. Plan: -CPAP trial today. extubate if tolerated. Qualifiers: COPD type: unspecified COPD Qualified Code(s): J44.9 - Chronic obstructive pulmonary disease, unspecified (8) Norovirus Current Visit: Yes Status: Resolved Resolved, had 1 bowel movements yesterday (9) DVT prophylaxis Current Visit: Yes Status: Acute Hep SQ Neuro: Found unresponsive/AMS cause unknown - concern for drug overdose or aspiration pneumonia. UDS + opiates, benzos and marijuana. Hx glioma, substance abuse. Head CT negative, repeat is stable. Concern for possible anoxic injury s/p arrest. Sedation has been held, spontaneous eye movements, non-purposeful movements are both decreasing in frequency. Awaiting family decision on care, patient will ultimately need tracheostomy, PEG, LTAC. Pulm: Acute respiratory failure likely secondary to B/L aspiration pneumonia and COPD. Sputum culture + e. Coli. Currently intubated on CPAP setting, tolerating and breathing above settings. On cefepime, bronchodilators and steroids. CPAP trial today, consider extubation once wishes for reintubation established with family. Repeat sputum culture growing gram negative rods, will d/c vanc and zosyn, will start meropenem Cardiac: s/p cardiac arrest, hypothermia protocol complete. Tachycardic, regular rhythm, normotensive. HR more labile today, 50-100. ECHO with EF of 65% , no dysfunction. stable, continue to monitor GI: Non-anion gap metabolic acidosis secondary to diarrhea from norovirus which has resolved, rectal tube removed. Patient receiving tube feeds, vital 50 . Renal: SIENA - Resolved. ID: Sepsis possibly secondary to pneumonia and UTI. Sputum and urine both grew. Coli. Completed 7 days of cefepime. Monitor vitals and labs. Leukocytosis has worsened over the last 3 days, patient is afebrile,blood cultures negative today, sputum culture growing gram negative rods. Will discontinue vancomycin and Zosyn, start meropenem Heme: heparin for DVT ppx; slight downtrend in H/H, suspect secondary to sepsis , s/p cardiac arrest, blood draws. Only once daily blood draws. Endo: Q6 accuchecks, SSI and hypoglycemic protocol. Code: Full Lines: Power glide, hernandez, ET, OG Subjective Principal diagnosis: Acute respiratory failure, found unresponsive Interval history: The patient was seen and examined. She remains intubated without sedation. No acute events overnight. This morning she has been on CPAP mode since 556. Awaiting decision from family on proceeding with trach, PEG, LTAC. Objective PUL Vital signs: Last Vital Signs Temp 98.7 F 12/25/16 07:45 Pulse 106 12/25/16 08:00 Resp 23 12/25/16 08:00 BP 117/74 12/25/16 08:00 Pulse Ox 97 12/25/16 08:00 General appearance: no acute distress, other (intubated) Eyes: nonicteric ENT: oropharynx moist Neck: supple, no lymphadenopathy, no JVD Effort: normal Auscultation: bilateral: clear Cardiovascular: other (tachycardia, regular rhythm) Gastrointestinal: normoactive bowel sounds, soft, non-tender, non-distended Extremities: no cyanosis, no edema, no clubbing, pulses normal Musculoskeletal: no deformities pupils equal and round, other (Patient has minimal non-spontaneous movements. Patient has posturing, positive Babinski on the right unable to elicit Babinski on the left.) Ventilator Settings Ventilator Settings: Ventilator Settings, Last 8 Hours Ventilator Mode CPAP Ventilator Mode CPAP Ventilator Mode CPAP Ventilator Mode CPAP Ventilator Mode VC+ Ventilator Mode VC+ Ventilator Mode VC+ Ventilator Mode VC+ Ventilator Mode VC+ Ventilator Mode VC+ Ventilator Mode VC+ Ventilator Tidal Volume 550 Setting Ventilator Tidal Volume 550 Setting Ventilator Tidal Volume 550 Setting Ventilator Tidal Volume 550 Setting Ventilator Tidal Volume 550 Setting Ventilator Tidal Volume 550 Setting Ventilator Tidal Volume 550 Setting Ventilator Respiratory Rate 16 Setting Ventilator Respiratory Rate 16 Setting Ventilator Respiratory Rate 16 Setting Ventilator Respiratory Rate 16 Setting Ventilator Respiratory Rate 16 Setting Ventilator Respiratory Rate 16 Setting Ventilator Respiratory Rate 16 Setting Actual Respiratory Rate 25 Actual Respiratory Rate 25 Actual Respiratory Rate 19 Actual Respiratory Rate 19 Actual Respiratory Rate 16 Actual Respiratory Rate 18 Actual Respiratory Rate 17 Actual Respiratory Rate 22 Actual Respiratory Rate 17 Actual Respiratory Rate 20 Actual Respiratory Rate 20 Positive End Expiratory 5 Pressure Positive End Expiratory 5 Pressure Positive End Expiratory 5 Pressure Positive End Expiratory 5 Pressure Positive End Expiratory 5 Pressure Positive End Expiratory 5 Pressure Positive End Expiratory 5 Pressure Positive End Expiratory 5 Pressure Positive End Expiratory 5 Pressure Positive End Expiratory 5 Pressure Positive End Expiratory 5 Pressure Peak Inspiratory Airway 14 Pressure Peak Inspiratory Airway 14 Pressure Peak Inspiratory Airway 19 Pressure Peak Inspiratory Airway 19 Pressure Peak Inspiratory Airway 27 Pressure Peak Inspiratory Airway 18 Pressure Peak Inspiratory Airway 27 Pressure Peak Inspiratory Airway 21 Pressure Peak Inspiratory Airway 19 Pressure Peak Inspiratory Airway 22 Pressure Peak Inspiratory Airway 17 Pressure Results - Laboratory Findings CBC and BMP: 12/25/16 03:24 12/25/16 03:24 ABG ABG pH 7.54 pH Units (7.32-7.45) H 12/24/16 08:43 ABG pCO2 32 mmHg (35-45) L 12/24/16 08:43 ABG pO2 70 mmHg (85-104) L 12/24/16 08:43 ABG O2 Saturation 96 % (95-98) 12/24/16 08:43 PT/INR, D-dimer PT 14.9 Seconds (9.4-12.1) H 12/15/16 05:10 Abnormal lab findings: Abnormal lab results WBC 32.2 K/mcL (4.3-11.1) H* 12/25/16 03:24 RDW 15.3 % (11.5-14.5) H 12/25/16 03:24 Band Neutrophils % 17.0 % (0-4) H 12/15/16 05:10 Metamyelocytes % 4.0 % (0) H 12/14/16 23:35 Promyelocytes % 1.0 % (0) H 12/14/16 00:25 Neutrophils # 28.7 K/mcL (1.6-8.9) H 12/25/16 03:24 Monocytes # 1.4 K/mcL (0.0-1.3) H 12/25/16 03:24 Nucleated RBCs/100 WBC 0.2 /100 WBC (0) H 12/20/16 03:45 Hypersegmented Neuts Present (Not Present) A 12/24/16 03:18 Reactive Lymphocytes Present (Not Present) A 12/25/16 03:24 Clumped Platelets Few (Not Present) A 12/14/16 00:25 Large Platelets Present (Not Present) A 12/25/16 03:24 Polychromasia 1+ (Not Present) A 12/13/16 15:41 PT 14.9 Seconds (9.4-12.1) H 12/15/16 05:10 ABG pH 7.54 pH Units (7.32-7.45) H 12/24/16 08:43 ABG pCO2 32 mmHg (35-45) L 12/24/16 08:43 ABG pO2 70 mmHg (85-104) L 12/24/16 08:43 ABG HCO3 27.4 mEQ/L (21-27) H 12/24/16 08:43 ABG Total CO2 28.4 mEq/L (20-26) H 12/24/16 08:43 ABG Base Excess 5.1 mEq/L (-2.0 to 3.0) H 12/24/16 08:43 Sodium 134 mEq/L (136-145) L 12/25/16 03:24 BUN 25 mg/dL (7-20) H 12/25/16 03:24 BUN/Creatinine Ratio 38 (6-26) H 12/25/16 03:24 Glucose 112 mg/dL (70-99) H 12/25/16 03:24 POC Glucose 117 (58-89) H 12/24/16 23:36 AST 167 Units/L (5-34) H 12/14/16 05:44 ALT 60 Units/L (0-55) H 12/14/16 05:44 Troponin I 1.06 ng/mL (0-0.03) H* 12/14/16 05:44 B-Natriuretic Peptide 150 pg/mL (0-100) H 12/13/16 16:45 Serum Total Protein 5.5 g/dL (6.0-8.3) L 12/14/16 05:44 Albumin 2.3 g/dL (3.5-5.0) L 12/14/16 05:44 Albumin/Globulin Ratio 0.7 (1.1-2.2) L 12/14/16 05:44 Urine Color [place] (Yellow) A 12/13/16 15:06 Urine Clarity Turbid (Clear) A 12/13/16 15:06 Urine Protein 100 mg/dL (Neg-Trace) H 12/13/16 15:06 Urine Ketones 15 mg/dL (Negative) H 12/13/16 15:06 Urine Blood Large (Negative) H 12/13/16 15:06 Urine Bilirubin Moderate (Negative) H 12/13/16 15:06 Ur Leukocyte Esterase Large (Negative) H 12/13/16 15:06 Urine Microscopic RBC 50-100 per hpf (0-3) H 12/13/16 15:06 Urine Microscopic WBC 30-50 per hpf (0-3) H 12/13/16 15:06 Urine Bacteria Many per hpf (None-Few) H 12/13/16 15:06 Ur Culture Indicated? YES (NO) A 12/13/16 15:06 Stl Norovirus GI/GII PCR DETECTED (Not detect) A 12/13/16 21:44 Urine Opiates Screen Positive ng/mL (Hyyyev=418) H 12/13/16 18:20 Acetaminophen < 1.0 mcg/mL (10-30) L 12/13/16 19:30 U Benzodiazepines Scrn Positive ng/mL (Ntruvk=629) H 12/13/16 18:20 U Marijuana (THC) Screen Positive ng/mL (Cutoff = 50) H 12/13/16 18:20 Staphylococcus sp PCR DETECTED (Not Detect) A 12/13/16 15:41 mecA-Methicil Res Gene DETECTED (Not Detect) A 12/13/16 15:41 - Microbiology Findings Microbiology Findings: Microbiology, Last 48 Hours 12/23/16 08:06 Blood Culture - Preliminary Peripheral Venipuncture No growth. 12/23/16 08:08 Blood Culture - Preliminary Peripheral Venipuncture No growth. 12/23/16 20:52 Sputum Culture - Preliminary Sputum Gram Negative Jorge - Clinical Findings Intake & Output: Intake & Output 12/24/16 12/25/16 12/25/16 23:59 07:59 15:59 Intake Total 374 / 374 757 / 757 Output Total 1000 / 1000 950 / 950 Balance -626 / -626 -193 / -193 Weight 65.9 kg - VTE Documentation of Mechanical Device: Intermittent pneumatic compression device Consult Discharge Plan - Plan Referrals: NO,PCP [Non-Partnered Physician] - <Cheryl Garcia - Last Filed: 12/25/16 18:07> Date of Encounter: 12/25/16 Objective PUL Vital signs: Last Vital Signs Temp 99.7 F H 12/25/16 17:11 Pulse 112 12/25/16 17:00 Resp 16 12/25/16 17:00 BP 188/88 12/25/16 17:00 Pulse Ox 95 12/25/16 17:00 Ventilator Settings Ventilator Settings: Ventilator Settings, Last 8 Hours Ventilator Mode VC+ Ventilator Mode VC+ Ventilator Mode VC+ Ventilator Tidal Volume 550 Setting Ventilator Tidal Volume 550 Setting Ventilator Tidal Volume 550 Setting Ventilator Respiratory Rate 16 Setting Ventilator Respiratory Rate 16 Setting Ventilator Respiratory Rate 16 Setting Actual Respiratory Rate 32 Actual Respiratory Rate 17 Positive End Expiratory 5 Pressure Positive End Expiratory 5 Pressure Positive End Expiratory 5 Pressure Peak Inspiratory Airway 39 Pressure Peak Inspiratory Airway 30 Pressure Results - Laboratory Findings CBC and BMP: 12/25/16 03:24 12/25/16 03:24 ABG ABG pH 7.54 pH Units (7.32-7.45) H 12/24/16 08:43 ABG pCO2 32 mmHg (35-45) L 12/24/16 08:43 ABG pO2 70 mmHg (85-104) L 12/24/16 08:43 ABG O2 Saturation 96 % (95-98) 12/24/16 08:43 PT/INR, D-dimer PT 14.9 Seconds (9.4-12.1) H 12/15/16 05:10 Abnormal lab findings: Abnormal lab results WBC 32.2 K/mcL (4.3-11.1) H* 12/25/16 03:24 RDW 15.3 % (11.5-14.5) H 12/25/16 03:24 Band Neutrophils % 17.0 % (0-4) H 12/15/16 05:10 Metamyelocytes % 4.0 % (0) H 12/14/16 23:35 Promyelocytes % 1.0 % (0) H 12/14/16 00:25 Neutrophils # 28.7 K/mcL (1.6-8.9) H 12/25/16 03:24 Monocytes # 1.4 K/mcL (0.0-1.3) H 12/25/16 03:24 Nucleated RBCs/100 WBC 0.2 /100 WBC (0) H 12/20/16 03:45 Hypersegmented Neuts Present (Not Present) A 12/24/16 03:18 Reactive Lymphocytes Present (Not Present) A 12/25/16 03:24 Clumped Platelets Few (Not Present) A 12/14/16 00:25 Large Platelets Present (Not Present) A 12/25/16 03:24 Polychromasia 1+ (Not Present) A 12/13/16 15:41 PT 14.9 Seconds (9.4-12.1) H 12/15/16 05:10 ABG pH 7.54 pH Units (7.32-7.45) H 12/24/16 08:43 ABG pCO2 32 mmHg (35-45) L 12/24/16 08:43 ABG pO2 70 mmHg (85-104) L 12/24/16 08:43 ABG HCO3 27.4 mEQ/L (21-27) H 12/24/16 08:43 ABG Total CO2 28.4 mEq/L (20-26) H 12/24/16 08:43 ABG Base Excess 5.1 mEq/L (-2.0 to 3.0) H 12/24/16 08:43 Sodium 134 mEq/L (136-145) L 12/25/16 03:24 BUN 25 mg/dL (7-20) H 12/25/16 03:24 BUN/Creatinine Ratio 38 (6-26) H 12/25/16 03:24 Glucose 112 mg/dL (70-99) H 12/25/16 03:24 POC Glucose 109 (58-89) H 12/25/16 11:48 AST 167 Units/L (5-34) H 12/14/16 05:44 ALT 60 Units/L (0-55) H 12/14/16 05:44 Troponin I 1.06 ng/mL (0-0.03) H* 12/14/16 05:44 B-Natriuretic Peptide 150 pg/mL (0-100) H 12/13/16 16:45 Serum Total Protein 5.5 g/dL (6.0-8.3) L 12/14/16 05:44 Albumin 2.3 g/dL (3.5-5.0) L 12/14/16 05:44 Albumin/Globulin Ratio 0.7 (1.1-2.2) L 12/14/16 05:44 Urine Color [place] (Yellow) A 12/13/16 15:06 Urine Clarity Turbid (Clear) A 12/13/16 15:06 Urine Protein 100 mg/dL (Neg-Trace) H 12/13/16 15:06 Urine Ketones 15 mg/dL (Negative) H 12/13/16 15:06 Urine Blood Large (Negative) H 12/13/16 15:06 Urine Bilirubin Moderate (Negative) H 12/13/16 15:06 Ur Leukocyte Esterase Large (Negative) H 12/13/16 15:06 Urine Microscopic RBC 50-100 per hpf (0-3) H 12/13/16 15:06 Urine Microscopic WBC 30-50 per hpf (0-3) H 12/13/16 15:06 Urine Bacteria Many per hpf (None-Few) H 12/13/16 15:06 Ur Culture Indicated? YES (NO) A 12/13/16 15:06 Stl Norovirus GI/GII PCR DETECTED (Not detect) A 12/13/16 21:44 Urine Opiates Screen Positive ng/mL (Rsrlwf=004) H 12/13/16 18:20 Acetaminophen < 1.0 mcg/mL (10-30) L 12/13/16 19:30 U Benzodiazepines Scrn Positive ng/mL (Cqedol=760) H 12/13/16 18:20 U Marijuana (THC) Screen Positive ng/mL (Cutoff = 50) H 12/13/16 18:20 Staphylococcus sp PCR DETECTED (Not Detect) A 12/13/16 15:41 mecA-Methicil Res Gene DETECTED (Not Detect) A 12/13/16 15:41 - Microbiology Findings Microbiology Findings: Microbiology, Last 48 Hours 12/23/16 08:06 Blood Culture - Preliminary Peripheral Venipuncture No growth. 12/23/16 08:08 Blood Culture - Preliminary Peripheral Venipuncture No growth. 12/23/16 20:52 Sputum Culture - Preliminary Sputum Gram Negative Jorge - Clinical Findings Intake & Output: Intake & Output 12/25/16 12/25/16 12/25/16 07:59 15:59 23:59 Intake Total 757 / 757 100 / 100 Output Total 950 / 950 200 / 200 250 / 250 Balance -193 / -193 -200 / -200 -150 / -150 Weight 65.9 kg - Attending Attestation I examined this patient and my medical decision-making was reviewed with the [employer] PROFESSOR/PA/Advanced Practice Nurse/Resident Physician. I agree with the documented findings, disposition and treatment plan as described except to the extent set forth below. Patient seen and examined. Labs, radiology, chart personally reviewed. 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 Pulmonary: Acceptable oxygenation and ventilation. And when family has a plan regarding CODE STATUS with the plan for either extubation or tracheostomy. Cardiovascular: stable GI: Nutrition per dietary and GI prophylaxis per routine Heme: DVT prophylaxis per routine. Leukocytosis is not clear at this time the source, we will continue monitoring ID: Continue antibiotics and plan to de-escalation Renal; urine out put and renal funtion reviewed Endorcine: blood glucose is monitored Lines: all lines checked and no evidence of infections Skin: skin care to prevent pressure ulcers per nursing routine care
[2016-12-25] MEDS: Budesonide/Formoterol 160/4.5 MDI IH SCH ×2 (09:54→20:57)
--- NOTE | 2016-12-25 12:52 | Palliative Progress Note ---
Date of Encounter: 12/25/16 Time of Encounter: 12:00 - Assessment and plan (1) Anoxic brain injury Current Visit: Yes Status: Acute Assessment and plan: Remains intubated and mechanically ventilated. Family still deciding course of action related to possible tracheostomy and PEG. (2) Counseling regarding advanced care planning and goals of care Current Visit: Yes Status: Acute Assessment and plan: Awaiting mothers arrival to follow-up on [facility] discussion from yesterday. Family still deciding on tracheostomy and PEG. Will meet with mother Kwadwo once she arrives. 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 Patient tolerating SBT today. Receiving no sedation. No family at bedside. Patient suffered anoxic brain injury and is day 12 of mechanical ventilation. Appears comfortable and performs no purposeful movements. Labs reviewed and WBC elevated with elevated neutrophil count. - Constitutional Vitals: Abnormal lab results WBC 32.2 K/mcL (4.3-11.1) H* 12/25/16 03:24 RDW 15.3 % (11.5-14.5) H 12/25/16 03:24 Band Neutrophils % 17.0 % (0-4) H 12/15/16 05:10 Metamyelocytes % 4.0 % (0) H 12/14/16 23:35 Promyelocytes % 1.0 % (0) H 12/14/16 00:25 Neutrophils # 28.7 K/mcL (1.6-8.9) H 12/25/16 03:24 Monocytes # 1.4 K/mcL (0.0-1.3) H 12/25/16 03:24 Nucleated RBCs/100 WBC 0.2 /100 WBC (0) H 12/20/16 03:45 Hypersegmented Neuts Present (Not Present) A 12/24/16 03:18 Reactive Lymphocytes Present (Not Present) A 12/25/16 03:24 Clumped Platelets Few (Not Present) A 12/14/16 00:25 Large Platelets Present (Not Present) A 12/25/16 03:24 Polychromasia 1+ (Not Present) A 12/13/16 15:41 PT 14.9 Seconds (9.4-12.1) H 12/15/16 05:10 ABG pH 7.54 pH Units (7.32-7.45) H 12/24/16 08:43 ABG pCO2 32 mmHg (35-45) L 12/24/16 08:43 ABG pO2 70 mmHg (85-104) L 12/24/16 08:43 ABG HCO3 27.4 mEQ/L (21-27) H 12/24/16 08:43 ABG Total CO2 28.4 mEq/L (20-26) H 12/24/16 08:43 ABG Base Excess 5.1 mEq/L (-2.0 to 3.0) H 12/24/16 08:43 Sodium 134 mEq/L (136-145) L 12/25/16 03:24 BUN 25 mg/dL (7-20) H 12/25/16 03:24 BUN/Creatinine Ratio 38 (6-26) H 12/25/16 03:24 Glucose 112 mg/dL (70-99) H 12/25/16 03:24 POC Glucose 117 (58-89) H 12/24/16 23:36 AST 167 Units/L (5-34) H 12/14/16 05:44 ALT 60 Units/L (0-55) H 12/14/16 05:44 Troponin I 1.06 ng/mL (0-0.03) H* 12/14/16 05:44 B-Natriuretic Peptide 150 pg/mL (0-100) H 12/13/16 16:45 Serum Total Protein 5.5 g/dL (6.0-8.3) L 12/14/16 05:44 Albumin 2.3 g/dL (3.5-5.0) L 12/14/16 05:44 Albumin/Globulin Ratio 0.7 (1.1-2.2) L 12/14/16 05:44 Urine Color [place] (Yellow) A 12/13/16 15:06 Urine Clarity Turbid (Clear) A 12/13/16 15:06 Urine Protein 100 mg/dL (Neg-Trace) H 12/13/16 15:06 Urine Ketones 15 mg/dL (Negative) H 12/13/16 15:06 Urine Blood Large (Negative) H 12/13/16 15:06 Urine Bilirubin Moderate (Negative) H 12/13/16 15:06 Ur Leukocyte Esterase Large (Negative) H 12/13/16 15:06 Urine Microscopic RBC 50-100 per hpf (0-3) H 12/13/16 15:06 Urine Microscopic WBC 30-50 per hpf (0-3) H 12/13/16 15:06 Urine Bacteria Many per hpf (None-Few) H 12/13/16 15:06 Ur Culture Indicated? YES (NO) A 12/13/16 15:06 Stl Norovirus GI/GII PCR DETECTED (Not detect) A 12/13/16 21:44 Urine Opiates Screen Positive ng/mL (Qoamcb=853) H 12/13/16 18:20 Acetaminophen < 1.0 mcg/mL (10-30) L 12/13/16 19:30 U Benzodiazepines Scrn Positive ng/mL (Jghjja=168) H 12/13/16 18:20 U Marijuana (THC) Screen Positive ng/mL (Cutoff = 50) H 12/13/16 18:20 Staphylococcus sp PCR DETECTED (Not Detect) A 12/13/16 15:41 mecA-Methicil Res Gene DETECTED (Not Detect) A 12/13/16 15:41 - Head Head exam: Present: atraumatic, normal inspection, normocephalic - Eye Eye exam: Present: PERRL Pupils: Present: PERRL - ENT ENT exam: Present: normal exam - Respiratory Respiratory exam: Present: CTAB - Cardiovascular Cardiovascular exam: Present: RRR, +S1, +S2 - GI/Abdominal GI/Abdominal exam: Present: normal bowel sounds, soft - Rectal Rectal exam: Present: deferred - Neurological Exam Neurological exam: Present: altered (no sedation) - Psychiatric Psychiatric exam: Present: flat affect Palliative Quality Palliative Quality: Screen for Code Status: NA (pt not responsive, awaiting family meeting), Screen for Goals of Care: NA, Screen for Pain: NA, If Pain Regimen Started, Initiate Bowel Regimen: NA, Screen for Nausea/Vomitting: NA Code Status: 12/13/16 18:17 Resuscitation Status: Active [RES] Routine Comment: Resuscitation Status: Full Code - Labs CBC & Chem 7: 12/25/16 03:24 12/25/16 03:24 Labs: Laboratory Results - last 24 hr 12/24/16 12/24/16 12/25/16 18:22 23:36 03:24 WBC 32.2 H* RBC 4.02 Hgb 12.8 Hct 38.1 MCV 94.8 MCH 31.8 MCHC 33.6 RDW 15.3 H Plt Count 332 MPV 10.6 Immature Gran % 2.7 Seg Neutrophils % 89.0 Lymphocytes % 3.8 Monocytes % 4.3 Eosinophils % 0.0 Basophils % 0.2 Neutrophils # 28.7 H Lymphocytes # 1.2 Monocytes # 1.4 H Eosinophils # 0.0 Basophils # 0.1 Reactive Lymphocytes Present A Platelet Estimate Normal Large Platelets Present A Sodium Potassium Chloride Carbon Dioxide BUN Creatinine Est GFR ( Amer) Est GFR (Non-Af Amer) BUN/Creatinine Ratio Glucose POC Glucose 116 H 117 H Calculated Osmolality Calcium 12/25/16 03:24 WBC RBC Hgb Hct MCV MCH MCHC RDW Plt Count MPV Immature Gran % Seg Neutrophils % Lymphocytes % Monocytes % Eosinophils % Basophils % Neutrophils # Lymphocytes # Monocytes # Eosinophils # Basophils # Reactive Lymphocytes Platelet Estimate Large Platelets Sodium 134 L Potassium 4.0 Chloride 99 Carbon Dioxide 25 BUN 25 H Creatinine 0.66 Est GFR ( Amer) > 60 Est GFR (Non-Af Amer) > 60 BUN/Creatinine Ratio 38 H Glucose 112 H POC Glucose Calculated Osmolality 283 Calcium 9.7 - Impressions Impressions Chest X-Ray 12/23/16 09:27 IMPRESSION: No evidence of acute cardiopulmonary disease. No change in life support. D/ / 12/23/2016 15:33:47 Flavio Yang MD / shelbi Interpreting Provider: Flavio Yang MD - ABG Interpretation ABG results: ABG ABG pH 7.54 pH Units (7.32-7.45) H 12/24/16 08:43 ABG pCO2 32 mmHg (35-45) L 12/24/16 08:43 ABG pO2 70 mmHg (85-104) L 12/24/16 08:43 ABG O2 Saturation 96 % (95-98) 12/24/16 08:43 PT/INR, D-dimer PT 14.9 Seconds (9.4-12.1) H 12/15/16 05:10 Consult Discharge Plan - Plan Referrals: NO,PCP [Non-Partnered Physician] -
[2016-12-25] MEDS: Meropenem 1,000 MG in 0.9 % Sodium Chloride Mini Bag 100 ML IVPB SCH ×2 (16:28→23:36)
[2016-12-26] MEDS: Lacri-Lube 3.5 GM TUBE BOTH EYES SCH ×6 (03:39→23:38)
[2016-12-26 03:48] LABS: BUN/Creatinine Ratio 42 (6-26); Blood Urea Nitrogen 22 mg/dL (7-20); Carbon Dioxide 18 mEq/L (19-29); Chloride 110 mEq/L (98-109); Glucose 90 mg/dL (70-99); Osmolality,Calculated 289 (280-300); Potassium 3.4 mEq/L (3.5-4.5); Sodium 138 mEq/L (136-145); eGFR For African Americans > 60 (> 60); eGFR For Non-African Americans > 60 (> 60)
[2016-12-26 03:49] LABS: Calcium 7.3 mg/dL (8.6-10.8)
[2016-12-26 04:03] LABS: Hematocrit 38.7 % (35.3-44.9); Mean Corpuscular HGB Conc 33.6 g/dL (31.6-35.5); Mean Corpuscular Hemoglobin 31.9 pg (28.0-33.3); Mean Corpuscular Volume 95.1 fL (83.0-100.0); Mean Platelet Volume 11.1 fL (9.4-12.4); Platelet Count 364 K/mcL (140-400); Red Blood Count 4.07 M/mcL (3.82-4.97); Red Cell Distribution Width 15.4 % (11.5-14.5)
[2016-12-26] MEDS: Ipratropium/Albuterol Neb 3 ML IH SCH ×4 (04:19→23:02)
[2016-12-26 04:34] LABS: Lymphocytes # 2.4 K/mcL (0.6-4.6); Monocytes # 0.6 K/mcL (0.0-1.3); Neutrophils # 26.9 K/mcL (1.6-8.9)
[2016-12-26 04:37] LABS: Hypersegmented Neutrophils Present (Not Present); Large Platelets Present (Not Present); Platelet Estimate Normal (Normal); Reactive Lymphocytes Present (Not Present)
[2016-12-26 04:54] LABS: ABG Base Excess 3.6 mEq/L (-2.0 to 3.0); ABG HCO3 26.3 mEQ/L (21-27); ABG Oxygen Saturation 99 % (95-98); ABG PCO2 33 mmHg (35-45); ABG PH 7.51 pH Units (7.32-7.45); ABG PO2 111 mmHg (85-104); ABG TCO2 27.3 mEq/L (20-26); Blood Gas FiO2 40 %
[2016-12-26] MEDS: *HR* Heparin 5,000 UNIT/ML VIAL SQ SCH ×3 (05:34→21:23)
[2016-12-26] MEDS: Insulin LISPRO 300 UNITS/3 ML VIAL SQ SCH (05:43)
--- NOTE | 2016-12-26 07:47 | Pulmonology Progress Note ---
<Rachel Lara - Last Filed: 12/26/16 10:57> Date of Encounter: 12/26/16 Time of Encounter: 07:45 Assessment and Plan (1) Sepsis Current Visit: Yes Status: Resolved Upon admission, patient had tachycardia, hypotension, tachypnea, elevated WBC. 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 Legionella and strep pneumo antigen negative Sputum culture and urine culture grew e. coli Blood culture grew staph epidermidis repeat head CT 12/16, 12/20 stable The patient's level of consciousness has not improved since admission, neuro has examined the patient and feels that the patient is not locked in and has a poor prognosis. Patient has been on CPAP mode this morning, has been off of sedation for >120 hours Care conference last week with patient mother and father, no decisions made regarding code status and plans for potential reintubation once patient is extubated. WBC 29.9 with a left shift of 26.9, trending down this morning. Patient was placed on vancomycin and Zosyn 12/23 after being pancultured. Sputum Culture positive for E. Coli, sensitive to meropenem. Plan: -Continue meropenem day 2 -Today we will plan to extubate the patient. -If family proceeds with Full code, intermediate care will need possible tracheostomy, with PEG tube vs NG tube for tube feeds, and LTAC placement -appreciate neuro input Qualifiers: Sepsis type: Escherichia coli Qualified Code(s): A41.51 - Sepsis due to Escherichia coli [E. coli] (2) Acute and chronic respiratory failure Current Visit: Yes Status: Acute Likely secondary to aspiration pneumonia. Patient tolerating CPAP trial, has been off sedation >120 hours Care conference completed 12/20/2016 to discuss code status and family wishes in the event the patient may need reintubation following extubation during this visit. Decision was made at this time. Awaiting decision from family, patient will most likely need tracheostomy, PEG tube placement, LTAC placement for long- term care. Patient has complex family/social dynamic, SW very familiar with family and situation. Plan: -CPAP trial today, plan to wean and extubate as possible after discussion with family. Qualifiers: Respiratory failure complication: hypoxia Qualified Code(s): J96.21 - Acute and chronic respiratory failure with hypoxia (3) Altered level of consciousness Current Visit: Yes Status: Acute Patient was found by mother and daughter to be unresponsive for an unknown period of time. Cause unknown, but likely secondary to drug use, aspiration pneumonia, and sepsis. UDS positive for opiates, benzos, marijuana. Concern for anoxic brain injury. (4) Cardiac arrest Current Visit: Yes Status: Acute Patient had episode of cardiac arrest in ED before admission to ICU. She completed hypothermic protocol yesterday. Echo showed LVEF 60-65% with no dysfunction. HR stable Plan: -Continue cardiac monitoring. 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 Continue bronchodilators, steroids, antibiotics, ventilatory support. Plan: -CPAP trial today. extubate if tolerated. Qualifiers: COPD type: unspecified COPD Qualified Code(s): J44.9 - Chronic obstructive pulmonary disease, unspecified (8) Norovirus Current Visit: Yes Status: Resolved (9) DVT prophylaxis Current Visit: Yes Status: Acute Hep SQ Neuro: Found unresponsive/AMS cause unknown - concern for drug overdose or aspiration pneumonia. UDS + opiates, benzos and marijuana. Hx glioma, substance abuse. Head CT negative, repeat is stable. Concern for possible anoxic injury s/p arrest. Sedation has been held, spontaneous eye movements, non-purposeful movements are both decreasing in frequency. Awaiting family decision on care, patient will ultimately need tracheostomy, PEG, LTAC. Pulm: Acute respiratory failure likely secondary to B/L aspiration pneumonia and COPD. Sputum culture + e. Coli. Currently intubated on CPAP setting, tolerating and breathing above settings. On bronchodilators and steroids. Plan to extubate todayCPAP trial today. Repeat sputum culture positive for E. coli, continue meropenem Cardiac: s/p cardiac arrest, hypothermia protocol complete. Tachycardic, regular rhythm, normotensive. HR stable today. ECHO with EF of 65%, no dysfunction. stable, continue to monitor GI: Non-anion gap metabolic acidosis secondary to diarrhea from norovirus which has resolved. Patient receiving tube feeds, vital 50 . Renal: SIENA - Resolved. ID: Sepsis possibly secondary to pneumonia and UTI. Sputum and urine both grew. Coli. Completed 7 days of cefepime. Leukocytosis improving, patient is afebrile, blood cultures and UC negative today, sputum culture growing E. coli sensitive to meropenem. Will continue meropenem day 2 Heme: heparin for DVT ppx; H/H stable. Only once daily blood draws. Endo: Q6 accuchecks, SSI and hypoglycemic protocol. Code: Full Lines: Power glide, hernandez, ET, OG Subjective Principal diagnosis: Acute respiratory failure, found unresponsive Interval history: The patient was seen and examined. She remains intubated without sedation. No acute events overnight. This morning she has been on CPAP mode since 727. Awaiting decision from family on proceeding with trach, PEG, LTAC. Objective PUL Vital signs: Last Vital Signs Temp 98.9 F 12/26/16 04:00 Pulse 101 12/26/16 07:00 Resp 18 12/26/16 07:28 BP 122/55 12/26/16 07:28 Pulse Ox 96 12/26/16 07:28 General appearance: no acute distress, other (intubated) Eyes: nonicteric ENT: oropharynx moist Neck: supple, no lymphadenopathy, no JVD Effort: normal Auscultation: bilateral: rhonchi Cardiovascular: regular rate and rhythm Gastrointestinal: normoactive bowel sounds, non-tender, non-distended Extremities: no cyanosis, no edema, no clubbing, pulses normal Musculoskeletal: no deformities pupils equal and round, other (Patient has minimal non-spontaneous movements. Patient has posturing, positive Babinski b/l) Ventilator Settings Ventilator Settings: Ventilator Settings, Last 8 Hours Ventilator Mode CPAP Ventilator Mode CPAP Ventilator Mode VC+ Ventilator Mode VC+ Ventilator Mode VC+ Ventilator Mode VC+ Ventilator Mode VC+ Ventilator Mode VC+ Ventilator Mode VC+ Ventilator Mode VC+ Ventilator Mode VC+ Ventilator Mode VC+ Ventilator Tidal Volume 550 Setting Ventilator Tidal Volume 550 Setting Ventilator Tidal Volume 550 Setting Ventilator Tidal Volume 550 Setting Ventilator Tidal Volume 550 Setting Ventilator Tidal Volume 550 Setting Ventilator Tidal Volume 550 Setting Ventilator Tidal Volume 550 Setting Ventilator Tidal Volume 550 Setting Ventilator Tidal Volume 550 Setting Ventilator Respiratory Rate 16 Setting Ventilator Respiratory Rate 16 Setting Ventilator Respiratory Rate 16 Setting Ventilator Respiratory Rate 16 Setting Ventilator Respiratory Rate 16 Setting Ventilator Respiratory Rate 16 Setting Ventilator Respiratory Rate 16 Setting Ventilator Respiratory Rate 16 Setting Ventilator Respiratory Rate 16 Setting Ventilator Respiratory Rate 16 Setting Actual Respiratory Rate 18 Actual Respiratory Rate 20 Actual Respiratory Rate 18 Actual Respiratory Rate 18 Actual Respiratory Rate 17 Actual Respiratory Rate 16 Actual Respiratory Rate 20 Actual Respiratory Rate 16 Actual Respiratory Rate 19 Actual Respiratory Rate 18 Actual Respiratory Rate 16 Positive End Expiratory 5 Pressure Positive End Expiratory 5 Pressure Positive End Expiratory 5 Pressure Positive End Expiratory 5 Pressure Positive End Expiratory 5 Pressure Positive End Expiratory 5 Pressure Positive End Expiratory 5 Pressure Positive End Expiratory 5 Pressure Positive End Expiratory 5 Pressure Positive End Expiratory 5 Pressure Positive End Expiratory 5 Pressure Positive End Expiratory 5 Pressure Peak Inspiratory Airway 18 Pressure Peak Inspiratory Airway 20 Pressure Peak Inspiratory Airway 25 Pressure Peak Inspiratory Airway 22 Pressure Peak Inspiratory Airway 23 Pressure Peak Inspiratory Airway 25 Pressure Peak Inspiratory Airway 26 Pressure Peak Inspiratory Airway 22 Pressure Peak Inspiratory Airway 26 Pressure Peak Inspiratory Airway 21 Pressure Peak Inspiratory Airway 27 Pressure Results - Laboratory Findings CBC and BMP: 12/26/16 03:21 12/26/16 03:21 ABG ABG pH 7.51 pH Units (7.32-7.45) H 12/26/16 04:39 ABG pCO2 33 mmHg (35-45) L 12/26/16 04:39 ABG pO2 111 mmHg (85-104) H 12/26/16 04:39 ABG O2 Saturation 99 % (95-98) H 12/26/16 04:39 PT/INR, D-dimer PT 14.9 Seconds (9.4-12.1) H 12/15/16 05:10 Abnormal lab findings: Abnormal lab results WBC 29.9 K/mcL (4.3-11.1) H 12/26/16 03:21 RDW 15.4 % (11.5-14.5) H 12/26/16 03:21 Metamyelocytes % 4.0 % (0) H 12/14/16 23:35 Promyelocytes % 1.0 % (0) H 12/14/16 00:25 Neutrophils # 26.9 K/mcL (1.6-8.9) H 12/26/16 03:21 Nucleated RBCs/100 WBC 0.2 /100 WBC (0) H 12/20/16 03:45 Hypersegmented Neuts Present (Not Present) A 12/26/16 03:21 Reactive Lymphocytes Present (Not Present) A 12/26/16 03:21 Clumped Platelets Few (Not Present) A 12/14/16 00:25 Large Platelets Present (Not Present) A 12/26/16 03:21 Polychromasia 1+ (Not Present) A 12/13/16 15:41 PT 14.9 Seconds (9.4-12.1) H 12/15/16 05:10 ABG pH 7.51 pH Units (7.32-7.45) H 12/26/16 04:39 ABG pCO2 33 mmHg (35-45) L 12/26/16 04:39 ABG pO2 111 mmHg (85-104) H 12/26/16 04:39 ABG Total CO2 27.3 mEq/L (20-26) H 12/26/16 04:39 ABG O2 Saturation 99 % (95-98) H 12/26/16 04:39 ABG Base Excess 3.6 mEq/L (-2.0 to 3.0) H 12/26/16 04:39 Potassium 3.4 mEq/L (3.5-4.5) L 12/26/16 03:21 Chloride 110 mEq/L (98-109) H 12/26/16 03:21 Carbon Dioxide 18 mEq/L (19-29) L 12/26/16 03:21 BUN 22 mg/dL (7-20) H 12/26/16 03:21 Creatinine 0.53 mg/dL (0.57-1.11) L 12/26/16 03:21 BUN/Creatinine Ratio 42 (6-26) H 12/26/16 03:21 POC Glucose 108 (58-89) H 12/25/16 23:33 Calcium 7.3 mg/dL (8.6-10.8) L D 12/26/16 03:21 AST 167 Units/L (5-34) H 12/14/16 05:44 ALT 60 Units/L (0-55) H 12/14/16 05:44 Troponin I 1.06 ng/mL (0-0.03) H* 12/14/16 05:44 B-Natriuretic Peptide 150 pg/mL (0-100) H 12/13/16 16:45 Serum Total Protein 5.5 g/dL (6.0-8.3) L 12/14/16 05:44 Albumin 2.3 g/dL (3.5-5.0) L 12/14/16 05:44 Albumin/Globulin Ratio 0.7 (1.1-2.2) L 12/14/16 05:44 Urine Color Steptoe (Yellow) A 12/13/16 15:06 Urine Clarity Turbid (Clear) A 12/13/16 15:06 Urine Protein 100 mg/dL (Neg-Trace) H 12/13/16 15:06 Urine Ketones 15 mg/dL (Negative) H 12/13/16 15:06 Urine Blood Large (Negative) H 12/13/16 15:06 Urine Bilirubin Moderate (Negative) H 12/13/16 15:06 Ur Leukocyte Esterase Large (Negative) H 12/13/16 15:06 Urine Microscopic RBC 50-100 per hpf (0-3) H 12/13/16 15:06 Urine Microscopic WBC 30-50 per hpf (0-3) H 12/13/16 15:06 Urine Bacteria Many per hpf (None-Few) H 12/13/16 15:06 Ur Culture Indicated? YES (NO) A 12/13/16 15:06 Stl Norovirus GI/GII PCR DETECTED (Not detect) A 12/13/16 21:44 Urine Opiates Screen Positive ng/mL (Whfmzu=489) H 12/13/16 18:20 Acetaminophen < 1.0 mcg/mL (10-30) L 12/13/16 19:30 U Benzodiazepines Scrn Positive ng/mL (Ekaips=188) H 12/13/16 18:20 U Marijuana (THC) Screen Positive ng/mL (Cutoff = 50) H 12/13/16 18:20 Staphylococcus sp PCR DETECTED (Not Detect) A 12/13/16 15:41 mecA-Methicil Res Gene DETECTED (Not Detect) A 12/13/16 15:41 - Microbiology Findings Microbiology Findings: Microbiology, Last 48 Hours 12/25/16 03:40 Urine Culture - Final Urine,Catheterized No growth. 12/23/16 20:52 Sputum Culture - Final Sputum Escherichia coli 12/23/16 08:06 Blood Culture - Preliminary Peripheral Venipuncture No growth. 12/23/16 08:08 Blood Culture - Preliminary Peripheral Venipuncture No growth. - Clinical Findings Intake & Output: Intake & Output 12/25/16 12/25/16 12/26/16 15:59 23:59 07:59 Intake Total 280 / 280 419 / 419 Output Total 200 / 200 350 / 350 275 / 275 Balance -200 / -200 -70 / -70 144 / 144 Weight 66.8 kg - VTE Documentation of Mechanical Device: Graduated compression elastic hosiery Consult Discharge Plan - Plan Referrals: NO,PCP [Non-Partnered Physician] - <Cheryl Garcia - Last Filed: 12/26/16 12:47> Date of Encounter: 12/26/16 Objective PUL Vital signs: Last Vital Signs Temp 99.0 F 12/26/16 11:49 Pulse 103 12/26/16 12:00 Resp 24 12/26/16 12:00 BP 135/97 12/26/16 12:00 Pulse Ox 94 12/26/16 12:00 Ventilator Settings Ventilator Settings: Ventilator Settings, Last 8 Hours Ventilator Mode CPAP Ventilator Mode CPAP Ventilator Mode VC+ Ventilator Mode VC+ Ventilator Tidal Volume 550 Setting Ventilator Tidal Volume 550 Setting Ventilator Respiratory Rate 16 Setting Ventilator Respiratory Rate 16 Setting Actual Respiratory Rate 18 Actual Respiratory Rate 20 Actual Respiratory Rate 18 Actual Respiratory Rate 18 Positive End Expiratory 5 Pressure Positive End Expiratory 5 Pressure Positive End Expiratory 5 Pressure Positive End Expiratory 5 Pressure Peak Inspiratory Airway 18 Pressure Peak Inspiratory Airway 20 Pressure Peak Inspiratory Airway 25 Pressure Peak Inspiratory Airway 22 Pressure Results - Laboratory Findings CBC and BMP: 12/26/16 03:21 12/26/16 03:21 ABG ABG pH 7.51 pH Units (7.32-7.45) H 12/26/16 04:39 ABG pCO2 33 mmHg (35-45) L 12/26/16 04:39 ABG pO2 111 mmHg (85-104) H 12/26/16 04:39 ABG O2 Saturation 99 % (95-98) H 12/26/16 04:39 PT/INR, D-dimer PT 14.9 Seconds (9.4-12.1) H 12/15/16 05:10 Abnormal lab findings: Abnormal lab results WBC 29.9 K/mcL (4.3-11.1) H 12/26/16 03:21 RDW 15.4 % (11.5-14.5) H 12/26/16 03:21 Metamyelocytes % 4.0 % (0) H 12/14/16 23:35 Promyelocytes % 1.0 % (0) H 12/14/16 00:25 Neutrophils # 26.9 K/mcL (1.6-8.9) H 12/26/16 03:21 Nucleated RBCs/100 WBC 0.2 /100 WBC (0) H 12/20/16 03:45 Hypersegmented Neuts Present (Not Present) A 12/26/16 03:21 Reactive Lymphocytes Present (Not Present) A 12/26/16 03:21 Clumped Platelets Few (Not Present) A 12/14/16 00:25 Large Platelets Present (Not Present) A 12/26/16 03:21 Polychromasia 1+ (Not Present) A 12/13/16 15:41 PT 14.9 Seconds (9.4-12.1) H 12/15/16 05:10 ABG pH 7.51 pH Units (7.32-7.45) H 12/26/16 04:39 ABG pCO2 33 mmHg (35-45) L 12/26/16 04:39 ABG pO2 111 mmHg (85-104) H 12/26/16 04:39 ABG Total CO2 27.3 mEq/L (20-26) H 12/26/16 04:39 ABG O2 Saturation 99 % (95-98) H 12/26/16 04:39 ABG Base Excess 3.6 mEq/L (-2.0 to 3.0) H 12/26/16 04:39 Potassium 3.4 mEq/L (3.5-4.5) L 12/26/16 03:21 Chloride 110 mEq/L (98-109) H 12/26/16 03:21 Carbon Dioxide 18 mEq/L (19-29) L 12/26/16 03:21 BUN 22 mg/dL (7-20) H 12/26/16 03:21 Creatinine 0.53 mg/dL (0.57-1.11) L 12/26/16 03:21 BUN/Creatinine Ratio 42 (6-26) H 12/26/16 03:21 POC Glucose 108 (58-89) H 12/25/16 23:33 Calcium 7.3 mg/dL (8.6-10.8) L D 12/26/16 03:21 AST 167 Units/L (5-34) H 12/14/16 05:44 ALT 60 Units/L (0-55) H 12/14/16 05:44 Troponin I 1.06 ng/mL (0-0.03) H* 12/14/16 05:44 B-Natriuretic Peptide 150 pg/mL (0-100) H 12/13/16 16:45 Serum Total Protein 5.5 g/dL (6.0-8.3) L 12/14/16 05:44 Albumin 2.3 g/dL (3.5-5.0) L 12/14/16 05:44 Albumin/Globulin Ratio 0.7 (1.1-2.2) L 12/14/16 05:44 Urine Color Steptoe (Yellow) A 12/13/16 15:06 Urine Clarity Turbid (Clear) A 12/13/16 15:06 Urine Protein 100 mg/dL (Neg-Trace) H 12/13/16 15:06 Urine Ketones 15 mg/dL (Negative) H 12/13/16 15:06 Urine Blood Large (Negative) H 12/13/16 15:06 Urine Bilirubin Moderate (Negative) H 12/13/16 15:06 Ur Leukocyte Esterase Large (Negative) H 12/13/16 15:06 Urine Microscopic RBC 50-100 per hpf (0-3) H 12/13/16 15:06 Urine Microscopic WBC 30-50 per hpf (0-3) H 12/13/16 15:06 Urine Bacteria Many per hpf (None-Few) H 12/13/16 15:06 Ur Culture Indicated? YES (NO) A 12/13/16 15:06 Stl Norovirus GI/GII PCR DETECTED (Not detect) A 12/13/16 21:44 Urine Opiates Screen Positive ng/mL (Ruvfvz=629) H 12/13/16 18:20 Acetaminophen < 1.0 mcg/mL (10-30) L 12/13/16 19:30 U Benzodiazepines Scrn Positive ng/mL (Weyrpw=722) H 12/13/16 18:20 U Marijuana (THC) Screen Positive ng/mL (Cutoff = 50) H 12/13/16 18:20 Staphylococcus sp PCR DETECTED (Not Detect) A 12/13/16 15:41 mecA-Methicil Res Gene DETECTED (Not Detect) A 12/13/16 15:41 - Microbiology Findings Microbiology Findings: Microbiology, Last 48 Hours 12/25/16 03:40 Urine Culture - Final Urine,Catheterized No growth. 12/23/16 20:52 Sputum Culture - Final Sputum Escherichia coli 12/23/16 08:06 Blood Culture - Preliminary Peripheral Venipuncture No growth. 12/23/16 08:08 Blood Culture - Preliminary Peripheral Venipuncture No growth. - Clinical Findings Intake & Output: Intake & Output 12/25/16 12/26/16 12/26/16 23:59 07:59 15:59 Intake Total 280 / 280 419 / 419 Output Total 350 / 350 275 / 275 325 / 325 Balance -70 / -70 144 / 144 -325 / -325 Weight 66.8 kg - Attending Attestation I examined this patient and my medical decision-making was reviewed with the ELECTRONIC FUNDS TRANSFER COORDINATOR/PA/Advanced Practice Nurse/Resident Physician. I agree with the documented findings, disposition and treatment plan as described except to the extent set forth below. Patient seen and examined. Labs, radiology, chart personally reviewed. Agree with resident's history and physical, assessment, plan with following comments: DINING SERVICE SUPERVISOR: No significant change Pulmonary: Acceptable oxygenation and ventilation. Tolerating spontaneous breathing trial, however family has not decided on her CODE STATUS and palliative care follow-up with the mother to make a decision. Cardiovascular: stable GI: Nutrition per dietary and GI prophylaxis per routine Heme: DVT prophylaxis per routine ID: Continue antibiotics and plan to de-escalation Renal; urine out put and renal funtion reviewed Endorcine: blood glucose is monitored Lines: all lines checked and no evidence of infections Skin: skin care to prevent pressure ulcers per nursing routine care Overall poor prognosis
[2016-12-26] MEDS: Chlorhexidine Rinse 15 ML MOUTHWASH MM SCH ×2 (07:55→20:18)
[2016-12-26] MEDS: Meropenem 1,000 MG in 0.9 % Sodium Chloride Mini Bag 100 ML IVPB SCH ×3 (07:56→23:35)
[2016-12-26] MEDS: Pantoprazole 40 MG VIAL IVPB SCH (07:56)
[2016-12-26] MEDS: Budesonide/Formoterol 160/4.5 MDI IH SCH ×2 (09:32→23:02)
--- NOTE | 2016-12-26 10:51 | Palliative Progress Note ---
Date of Encounter: 12/26/16 Time of Encounter: 10:49 - Assessment and plan (1) Anoxic brain injury Current Visit: Yes Status: Acute (2) Acute and chronic respiratory failure Current Visit: No Status: Acute Qualifiers: Respiratory failure complication: hypoxia and hypercapnia Qualified Code(s) : J96.21 - Acute and chronic respiratory failure with hypoxia; J96.22 - Acute and chronic respiratory failure with hypercapnia (3) Counseling regarding advanced care planning and goals of care Current Visit: Yes Status: Acute Assessment and plan: Plan for family meeting when they arrive. Update (12/26/16 at 1530): family meeting with patient's mother-Timothy Lopez ( POA) and father-Sandor (via telephone), and support person-Yamile Samayoa, regarding goals of care. According to Timothy, she had prior conversations about "life support" with the patient before she became acutely ill. iTmothy indicated that Ms. Perez would not want to have a tracheostomy. Discussed code status. Decision was made to change code status to DNR/DNI and if her breathing were to decompensate following extubation, Ms. Perez would not be intubated, and she would be allowed to have a natural . Family asked appropriate questions. Plan to allow family to gather, and will extubate when family is ready. Support provided to patient/family by psychologist social and lawn mower sharpener. Present for conversation: Primary RN-Anupama Cary, [employer] Coordinator-Tessa Lombardi, Dr. Garcia, Dr. Lara. Follow-up (12/26/16 @ [id number]): Children and father will not be present at bedside. Once again confirmed plan of care for compassionate liberation from mechanical ventilation with no intent of resuming mechanical ventilation if her respiratory status declines. Timothy ([email or web address]) continues to support Ms. Perez's previously known intent. (4) Aspiration pneumonia Current Visit: No Status: Suspected Qualifiers: Aspiration pneumonia type: unspecified Laterality: bilateral Lung location: unspecified part of lung Qualified Code(s): J69.0 - Pneumonitis due to inhalation of food and vomit (5) Cardiac arrest Current Visit: Yes Status: Acute - Time Spent With Patient Total time spent is greater than 50% in coordination of care (as documented) at patient's floor/unit and/or counseling patient: - Subjective Interval history: Ms. Perez remains in the ICU on mechanical ventilation without sedation. Movements are non-purposeful, does not follow commands, posturing noted. Tolerating SBT. - Constitutional Vitals: Abnormal lab results WBC 29.9 K/mcL (4.3-11.1) H 12/26/16 03:21 RDW 15.4 % (11.5-14.5) H 12/26/16 03:21 Metamyelocytes % 4.0 % (0) H 12/14/16 23:35 Promyelocytes % 1.0 % (0) H 12/14/16 00:25 Neutrophils # 26.9 K/mcL (1.6-8.9) H 12/26/16 03:21 Nucleated RBCs/100 WBC 0.2 /100 WBC (0) H 12/20/16 03:45 Hypersegmented Neuts Present (Not Present) A 12/26/16 03:21 Reactive Lymphocytes Present (Not Present) A 12/26/16 03:21 Clumped Platelets Few (Not Present) A 12/14/16 00:25 Large Platelets Present (Not Present) A 12/26/16 03:21 Polychromasia 1+ (Not Present) A 12/13/16 15:41 PT 14.9 Seconds (9.4-12.1) H 12/15/16 05:10 ABG pH 7.51 pH Units (7.32-7.45) H 12/26/16 04:39 ABG pCO2 33 mmHg (35-45) L 12/26/16 04:39 ABG pO2 111 mmHg (85-104) H 12/26/16 04:39 ABG Total CO2 27.3 mEq/L (20-26) H 12/26/16 04:39 ABG O2 Saturation 99 % (95-98) H 12/26/16 04:39 ABG Base Excess 3.6 mEq/L (-2.0 to 3.0) H 12/26/16 04:39 Potassium 3.4 mEq/L (3.5-4.5) L 12/26/16 03:21 Chloride 110 mEq/L (98-109) H 12/26/16 03:21 Carbon Dioxide 18 mEq/L (19-29) L 12/26/16 03:21 BUN 22 mg/dL (7-20) H 12/26/16 03:21 Creatinine 0.53 mg/dL (0.57-1.11) L 12/26/16 03:21 BUN/Creatinine Ratio 42 (6-26) H 12/26/16 03:21 POC Glucose 108 (58-89) H 12/25/16 23:33 Calcium 7.3 mg/dL (8.6-10.8) L D 12/26/16 03:21 AST 167 Units/L (5-34) H 12/14/16 05:44 ALT 60 Units/L (0-55) H 12/14/16 05:44 Troponin I 1.06 ng/mL (0-0.03) H* 12/14/16 05:44 B-Natriuretic Peptide 150 pg/mL (0-100) H 12/13/16 16:45 Serum Total Protein 5.5 g/dL (6.0-8.3) L 12/14/16 05:44 Albumin 2.3 g/dL (3.5-5.0) L 12/14/16 05:44 Albumin/Globulin Ratio 0.7 (1.1-2.2) L 12/14/16 05:44 Urine Color [place] (Yellow) A 12/13/16 15:06 Urine Clarity Turbid (Clear) A 12/13/16 15:06 Urine Protein 100 mg/dL (Neg-Trace) H 12/13/16 15:06 Urine Ketones 15 mg/dL (Negative) H 12/13/16 15:06 Urine Blood Large (Negative) H 12/13/16 15:06 Urine Bilirubin Moderate (Negative) H 12/13/16 15:06 Ur Leukocyte Esterase Large (Negative) H 12/13/16 15:06 Urine Microscopic RBC 50-100 per hpf (0-3) H 12/13/16 15:06 Urine Microscopic WBC 30-50 per hpf (0-3) H 12/13/16 15:06 Urine Bacteria Many per hpf (None-Few) H 12/13/16 15:06 Ur Culture Indicated? YES (NO) A 12/13/16 15:06 Stl Norovirus GI/GII PCR DETECTED (Not detect) A 12/13/16 21:44 Urine Opiates Screen Positive ng/mL (Geabex=234) H 12/13/16 18:20 Acetaminophen < 1.0 mcg/mL (10-30) L 12/13/16 19:30 U Benzodiazepines Scrn Positive ng/mL (Wfvgvx=142) H 12/13/16 18:20 U Marijuana (THC) Screen Positive ng/mL (Cutoff = 50) H 12/13/16 18:20 Staphylococcus sp PCR DETECTED (Not Detect) A 12/13/16 15:41 mecA-Methicil Res Gene DETECTED (Not Detect) A 12/13/16 15:41 Exam: 36 year old female, opens eyes but not to command, movements non-purposeful - Eye Eye exam: Present: PERRL - ENT ENT exam: Present: mucous membranes moist - Respiratory Respiratory exam: Present: decreased breath sounds Additional comments: intubated on mechanical ventilation with no sedation - Cardiovascular Cardiovascular exam: Present: RRR - GI/Abdominal GI/Abdominal exam: Present: normal bowel sounds, soft. Absent: tenderness - Extremities Exam Additional comments: foot drop bilaterally - Neurological Exam Additional comments: opens eyes, but not to command, movements non-purposeful, posturing - Psychiatric Psychiatric exam: Absent: agitated, anxious - Skin Skin exam: Present: dry, warm Additional comments: small abrasions noted to bilateral lower extremities Palliative Quality Palliative Quality: Screen for Code Status: NA (pt not responsive, awaiting family meeting), Screen for Goals of Care: NA, Screen for Pain: NA, If Pain Regimen Started, Initiate Bowel Regimen: NA, Screen for Nausea/Vomitting: NA Code Status: 12/13/16 18:17 Resuscitation Status: Active [RES] Routine Comment: Resuscitation Status: Full Code - Labs CBC & Chem 7: 12/26/16 03:21 12/26/16 03:21 Labs: Laboratory Results - last 24 hr 12/25/16 12/25/16 12/25/16 05:11 11:48 18:12 WBC RBC Hgb Hct MCV MCH MCHC RDW Plt Count MPV Seg Neutrophils % Band Neutrophils % Lymphocytes % Monocytes % Neutrophils # Lymphocytes # Monocytes # Hypersegmented Neuts Reactive Lymphocytes Platelet Estimate Large Platelets ABG pH ABG pCO2 ABG pO2 ABG HCO3 ABG Total CO2 ABG O2 Saturation ABG Base Excess Blood Gas Modality Inspired O2 Sodium Potassium Chloride Carbon Dioxide BUN Creatinine Est GFR ( Amer) Est GFR (Non-Af Amer) BUN/Creatinine Ratio Glucose POC Glucose 114 H 109 H 98 H Calculated Osmolality Calcium 12/25/16 12/26/16 12/26/16 23:33 03:21 03:21 WBC 29.9 H RBC 4.07 Hgb 13.0 Hct 38.7 MCV 95.1 MCH 31.9 MCHC 33.6 RDW 15.4 H Plt Count 364 MPV 11.1 Seg Neutrophils % 88.0 Band Neutrophils % 2.0 Lymphocytes % 8.0 Monocytes % 2.0 Neutrophils # 26.9 H Lymphocytes # 2.4 Monocytes # 0.6 Hypersegmented Neuts Present A Reactive Lymphocytes Present A Platelet Estimate Normal Large Platelets Present A ABG pH ABG pCO2 ABG pO2 ABG HCO3 ABG Total CO2 ABG O2 Saturation ABG Base Excess Blood Gas Modality Inspired O2 Sodium 138 Potassium 3.4 L Chloride 110 H Carbon Dioxide 18 L BUN 22 H Creatinine 0.53 L Est GFR ( Amer) > 60 Est GFR (Non-Af Amer) > 60 BUN/Creatinine Ratio 42 H Glucose 90 POC Glucose 108 H Calculated Osmolality 289 Calcium 7.3 L D 12/26/16 04:39 WBC RBC Hgb Hct MCV MCH MCHC RDW Plt Count MPV Seg Neutrophils % Band Neutrophils % Lymphocytes % Monocytes % Neutrophils # Lymphocytes # Monocytes # Hypersegmented Neuts Reactive Lymphocytes Platelet Estimate Large Platelets ABG pH 7.51 H ABG pCO2 33 L ABG pO2 111 H ABG HCO3 26.3 ABG Total CO2 27.3 H ABG O2 Saturation 99 H ABG Base Excess 3.6 H Blood Gas Modality vct Inspired O2 40 Sodium Potassium Chloride Carbon Dioxide BUN Creatinine Est GFR ( Amer) Est GFR (Non-Af Amer) BUN/Creatinine Ratio Glucose POC Glucose Calculated Osmolality Calcium - ABG Interpretation ABG results: ABG ABG pH 7.51 pH Units (7.32-7.45) H 12/26/16 04:39 ABG pCO2 33 mmHg (35-45) L 12/26/16 04:39 ABG pO2 111 mmHg (85-104) H 12/26/16 04:39 ABG O2 Saturation 99 % (95-98) H 12/26/16 04:39 PT/INR, D-dimer PT 14.9 Seconds (9.4-12.1) H 12/15/16 05:10 Consult Discharge Plan - Plan Referrals: NO,PCP [Non-Partnered Physician] -
[2016-12-26] MEDS ORDERED: *HR* Morphine 2 MG/ML SYRINGE IVP PRN (16:19)
[2016-12-26] MEDS ORDERED: *HR* LORazepam 2 MG/ML VIAL IVP PRN (16:19)
[2016-12-27] MEDS: Ipratropium/Albuterol Neb 3 ML IH SCH ×4 (04:03→22:00)
[2016-12-27] MEDS: Lacri-Lube 3.5 GM TUBE BOTH EYES SCH ×2 (04:17→08:34)
[2016-12-27] MEDS: *HR* Heparin 5,000 UNIT/ML VIAL SQ SCH ×2 (05:19→20:44)
--- NOTE | 2016-12-27 07:49 | Pulmonology Progress Note ---
<Rachel Lara - Last Filed: 12/27/16 07:45> Date of Encounter: 12/27/16 Time of Encounter: 07:45 Assessment and Plan (1) Sepsis Current Visit: Yes Status: Resolved Present Upon admission, had resolved but patient developed worsening leukocytosis. [place] cultures repeated, sputum culture positive for Escherichia coli which is sensitive to meropenem. The patient's level of consciousness has not improved since admission, neuro has examined the patient and feels that the patient is not locked in and has a poor prognosis. The patient's CODE STATUS was changed to DNR-comfort care arrest DNI, the patient was successfully extubated yesterday late afternoon. She was initially on nasal cannula oxygen but now is requiring of Venturi mask at 15 L O2. Patient is tachycardic, normotensive with oxygen saturations in the low 90s. Her neuro exam is unchanged from previous. She does not respond verbally, she withdraws to pain, spontaneous eye movements, GCS 9. Patient has decorticate posturing. Patient will transfer to palliative care bed today. Plan: -Continue meropenem day 3 -Transfer to Palliative Care bed Qualifiers: Sepsis type: Escherichia coli Qualified Code(s): A41.51 - Sepsis due to Escherichia coli [E. coli] (2) Acute and chronic respiratory failure Current Visit: Yes Status: Acute Likely secondary to aspiration pneumonia. Patient successfully extubated 12/26/16, on Venturi mask at 15L Qualifiers: Respiratory failure complication: hypoxia Qualified Code(s): J96.21 - Acute and chronic respiratory failure with hypoxia (3) Altered level of consciousness Current Visit: Yes Status: Acute Patient was found by mother and daughter to be unresponsive for an unknown period of time. Cause unknown, but likely secondary to drug use, aspiration pneumonia, and sepsis. UDS positive for opiates, benzos, marijuana. Concern for anoxic brain injury. (4) Cardiac arrest Current Visit: Yes Status: Acute Patient had episode of cardiac arrest in ED before admission to ICU. She completed hypothermic protocol yesterday. Echo showed LVEF 60-65% with no dysfunction. 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 Continue bronchodilators, steroids, antibiotics, oxygen support. Qualifiers: COPD type: unspecified COPD Qualified Code(s): J44.9 - Chronic obstructive pulmonary disease, unspecified (8) Norovirus Current Visit: Yes Status: Resolved (9) DVT prophylaxis Current Visit: Yes Status: Acute Hep SQ Neuro: Found unresponsive/AMS cause unknown - concern for drug overdose or aspiration pneumonia. UDS + opiates, benzos and marijuana. Hx glioma, substance abuse. Head CT negative, repeat is stable. Concern for possible anoxic injury s/p arrest. Spontaneous eye movements, non-purposeful movements are both decreasing in frequency. Cortical posturing. Bilateral positive Babinski sign. Responds to painful stimuli. GCS 9. Pulm: Acute respiratory failure likely secondary to B/L aspiration pneumonia and COPD. Sputum culture + e. Coli. Extubated and on Venturi mask at 15L. On bronchodilators and steroids. Repeat sputum culture positive for E. coli, continue meropenem Cardiac: s/p cardiac arrest, hypothermia protocol complete. Tachycardic, regular rhythm, normotensive. HR stable today. ECHO with EF of 65%, no dysfunction. stable, continue to monitor GI: Patient was on tube feeds, with extubation she was removed. Will need to consider a nutrition for the patient now that she is extubated. Possible PEG tube placement will be necessary. Renal: Stable, the patient has good urine output ID: Sepsis possibly secondary to pneumonia and UTI. Sputum and urine both grew. Coli. Completed 7 days of cefepime. Leukocytosis improving, patient is afebrile, blood cultures and UC negative today, sputum culture growing E. coli sensitive to meropenem. Will continue meropenem day 2 Heme: heparin for DVT ppx; H/H stable. Only once daily blood draws. Endo: Stable Lines: david Pat Code:DNR-CCA/DNI Discussion with palliative and SCOT Lopez yesterday. Decision was made to change patient's CODE STATUS to DNR/DNI and the patient was extubated. She will be transferred to A palliative care bed today. Subjective Principal diagnosis: Acute respiratory failure, found unresponsive Interval history: The patient was seen and examined. She extubated yesterday late afternoon. No acute events overnight, but she is requiring a venturi mask at 15L now instead of NC. Objective PUL Vital signs: Last Vital Signs Temp 98.5 F 12/27/16 04:00 Pulse 94 12/27/16 06:00 Resp 26 12/27/16 06:00 BP 123/85 12/27/16 06:00 Pulse Ox 91 12/27/16 06:00 General appearance: no acute distress, lethargic Eyes: nonicteric ENT: oropharynx moist Neck: supple, no lymphadenopathy, no JVD Effort: mildly labored Auscultation: bilateral: rales Cardiovascular: other (tachycardia) Gastrointestinal: normoactive bowel sounds, soft, non-tender, non-distended Extremities: no cyanosis, no edema, no clubbing, pulses normal Musculoskeletal: no deformities pupils equal and round, other (decorticate posturing, b/l positive babinski, patient withdraws to pain, has spontaneous but non-purposeful eye movements, no verbal response.) Results - Laboratory Findings CBC and BMP: 12/26/16 03:21 12/26/16 03:21 ABG ABG pH 7.51 pH Units (7.32-7.45) H 12/26/16 04:39 ABG pCO2 33 mmHg (35-45) L 12/26/16 04:39 ABG pO2 111 mmHg (85-104) H 12/26/16 04:39 ABG O2 Saturation 99 % (95-98) H 12/26/16 04:39 PT/INR, D-dimer PT 14.9 Seconds (9.4-12.1) H 12/15/16 05:10 Abnormal lab findings: Abnormal lab results WBC 29.9 K/mcL (4.3-11.1) H 12/26/16 03:21 RDW 15.4 % (11.5-14.5) H 12/26/16 03:21 Metamyelocytes % 4.0 % (0) H 12/14/16 23:35 Promyelocytes % 1.0 % (0) H 12/14/16 00:25 Neutrophils # 26.9 K/mcL (1.6-8.9) H 12/26/16 03:21 Nucleated RBCs/100 WBC 0.2 /100 WBC (0) H 12/20/16 03:45 Hypersegmented Neuts Present (Not Present) A 12/26/16 03:21 Reactive Lymphocytes Present (Not Present) A 12/26/16 03:21 Clumped Platelets Few (Not Present) A 12/14/16 00:25 Large Platelets Present (Not Present) A 12/26/16 03:21 Polychromasia 1+ (Not Present) A 12/13/16 15:41 PT 14.9 Seconds (9.4-12.1) H 12/15/16 05:10 ABG pH 7.51 pH Units (7.32-7.45) H 12/26/16 04:39 ABG pCO2 33 mmHg (35-45) L 12/26/16 04:39 ABG pO2 111 mmHg (85-104) H 12/26/16 04:39 ABG Total CO2 27.3 mEq/L (20-26) H 12/26/16 04:39 ABG O2 Saturation 99 % (95-98) H 12/26/16 04:39 ABG Base Excess 3.6 mEq/L (-2.0 to 3.0) H 12/26/16 04:39 Potassium 3.4 mEq/L (3.5-4.5) L 12/26/16 03:21 Chloride 110 mEq/L (98-109) H 12/26/16 03:21 Carbon Dioxide 18 mEq/L (19-29) L 12/26/16 03:21 BUN 22 mg/dL (7-20) H 12/26/16 03:21 Creatinine 0.53 mg/dL (0.57-1.11) L 12/26/16 03:21 BUN/Creatinine Ratio 42 (6-26) H 12/26/16 03:21 POC Glucose 130 (58-89) H 12/26/16 05:41 Calcium 7.3 mg/dL (8.6-10.8) L D 12/26/16 03:21 AST 167 Units/L (5-34) H 12/14/16 05:44 ALT 60 Units/L (0-55) H 12/14/16 05:44 Troponin I 1.06 ng/mL (0-0.03) H* 12/14/16 05:44 B-Natriuretic Peptide 150 pg/mL (0-100) H 12/13/16 16:45 Serum Total Protein 5.5 g/dL (6.0-8.3) L 12/14/16 05:44 Albumin 2.3 g/dL (3.5-5.0) L 12/14/16 05:44 Albumin/Globulin Ratio 0.7 (1.1-2.2) L 12/14/16 05:44 Urine Color [place] (Yellow) A 12/13/16 15:06 Urine Clarity Turbid (Clear) A 12/13/16 15:06 Urine Protein 100 mg/dL (Neg-Trace) H 12/13/16 15:06 Urine Ketones 15 mg/dL (Negative) H 12/13/16 15:06 Urine Blood Large (Negative) H 12/13/16 15:06 Urine Bilirubin Moderate (Negative) H 12/13/16 15:06 Ur Leukocyte Esterase Large (Negative) H 12/13/16 15:06 Urine Microscopic RBC 50-100 per hpf (0-3) H 12/13/16 15:06 Urine Microscopic WBC 30-50 per hpf (0-3) H 12/13/16 15:06 Urine Bacteria Many per hpf (None-Few) H 12/13/16 15:06 Ur Culture Indicated? YES (NO) A 12/13/16 15:06 Stl Norovirus GI/GII PCR DETECTED (Not detect) A 12/13/16 21:44 Urine Opiates Screen Positive ng/mL (Tdeweb=260) H 12/13/16 18:20 Acetaminophen < 1.0 mcg/mL (10-30) L 12/13/16 19:30 U Benzodiazepines Scrn Positive ng/mL (Jjyrys=996) H 12/13/16 18:20 U Marijuana (THC) Screen Positive ng/mL (Cutoff = 50) H 12/13/16 18:20 Staphylococcus sp PCR DETECTED (Not Detect) A 12/13/16 15:41 mecA-Methicil Res Gene DETECTED (Not Detect) A 12/13/16 15:41 - Microbiology Findings Microbiology Findings: Microbiology, Last 48 Hours 12/25/16 03:40 Urine Culture - Final Urine,Catheterized No growth. 12/23/16 20:52 Sputum Culture - Final Sputum Escherichia coli 12/23/16 08:06 Blood Culture - Preliminary Peripheral Venipuncture No growth. 12/23/16 08:08 Blood Culture - Preliminary Peripheral Venipuncture No growth. - Clinical Findings Intake & Output: Intake & Output 12/26/16 12/26/16 12/27/16 15:59 23:59 07:59 Intake Total 100 / 100 100 / 100 100 / 100 Output Total 325 / 325 550 / 550 125 / 125 Balance -225 / -225 -450 / -450 -25 / -25 Weight 66.4 kg - VTE Documentation of Mechanical Device: Graduated compression elastic hosiery Consult Discharge Plan - Plan Referrals: NO,PCP [Non-Partnered Physician] - <Cheryl Garcia - Last Filed: 12/27/16 12:18> Date of Encounter: 12/27/16 Objective PUL Vital signs: Last Vital Signs Temp 98.7 F 12/27/16 11:00 Pulse 112 12/27/16 11:00 Resp 30 12/27/16 11:00 BP 129/82 12/27/16 11:00 Pulse Ox 93 12/27/16 11:00 Results - Laboratory Findings CBC and BMP: 12/27/16 08:35 12/27/16 08:35 ABG ABG pH 7.51 pH Units (7.32-7.45) H 12/26/16 04:39 ABG pCO2 33 mmHg (35-45) L 12/26/16 04:39 ABG pO2 111 mmHg (85-104) H 12/26/16 04:39 ABG O2 Saturation 99 % (95-98) H 12/26/16 04:39 PT/INR, D-dimer PT 14.9 Seconds (9.4-12.1) H 12/15/16 05:10 Abnormal lab findings: Abnormal lab results WBC 21.7 K/mcL (4.3-11.1) H 12/27/16 08:35 RDW 15.2 % (11.5-14.5) H 12/27/16 08:35 Metamyelocytes % 4.0 % (0) H 12/14/16 23:35 Promyelocytes % 1.0 % (0) H 12/14/16 00:25 Neutrophils # 17.2 K/mcL (1.6-8.9) H 12/27/16 08:35 Monocytes # 1.6 K/mcL (0.0-1.3) H 12/27/16 08:35 Nucleated RBCs/100 WBC 0.2 /100 WBC (0) H 12/20/16 03:45 Hypersegmented Neuts Present (Not Present) A 12/26/16 03:21 Reactive Lymphocytes Present (Not Present) A 12/26/16 03:21 Clumped Platelets Few (Not Present) A 12/14/16 00:25 Large Platelets Present (Not Present) A 12/26/16 03:21 Polychromasia 1+ (Not Present) A 12/13/16 15:41 PT 14.9 Seconds (9.4-12.1) H 12/15/16 05:10 ABG pH 7.51 pH Units (7.32-7.45) H 12/26/16 04:39 ABG pCO2 33 mmHg (35-45) L 12/26/16 04:39 ABG pO2 111 mmHg (85-104) H 12/26/16 04:39 ABG Total CO2 27.3 mEq/L (20-26) H 12/26/16 04:39 ABG O2 Saturation 99 % (95-98) H 12/26/16 04:39 ABG Base Excess 3.6 mEq/L (-2.0 to 3.0) H 12/26/16 04:39 Potassium 2.9 mEq/L (3.5-4.5) L 12/27/16 08:35 BUN 30 mg/dL (7-20) H 12/27/16 08:35 BUN/Creatinine Ratio 48 (6-26) H 12/27/16 08:35 POC Glucose 130 (58-89) H 12/26/16 05:41 AST 167 Units/L (5-34) H 12/14/16 05:44 ALT 60 Units/L (0-55) H 12/14/16 05:44 Troponin I 1.06 ng/mL (0-0.03) H* 12/14/16 05:44 B-Natriuretic Peptide 150 pg/mL (0-100) H 12/13/16 16:45 Serum Total Protein 5.5 g/dL (6.0-8.3) L 12/14/16 05:44 Albumin 2.3 g/dL (3.5-5.0) L 12/14/16 05:44 Albumin/Globulin Ratio 0.7 (1.1-2.2) L 12/14/16 05:44 Urine Color [place] (Yellow) A 12/13/16 15:06 Urine Clarity Turbid (Clear) A 12/13/16 15:06 Urine Protein 100 mg/dL (Neg-Trace) H 12/13/16 15:06 Urine Ketones 15 mg/dL (Negative) H 12/13/16 15:06 Urine Blood Large (Negative) H 12/13/16 15:06 Urine Bilirubin Moderate (Negative) H 12/13/16 15:06 Ur Leukocyte Esterase Large (Negative) H 12/13/16 15:06 Urine Microscopic RBC 50-100 per hpf (0-3) H 12/13/16 15:06 Urine Microscopic WBC 30-50 per hpf (0-3) H 12/13/16 15:06 Urine Bacteria Many per hpf (None-Few) H 12/13/16 15:06 Ur Culture Indicated? YES (NO) A 12/13/16 15:06 Stl Norovirus GI/GII PCR DETECTED (Not detect) A 12/13/16 21:44 Urine Opiates Screen Positive ng/mL (Qnlldq=573) H 12/13/16 18:20 Acetaminophen < 1.0 mcg/mL (10-30) L 12/13/16 19:30 U Benzodiazepines Scrn Positive ng/mL (Vtgwxi=348) H 12/13/16 18:20 U Marijuana (THC) Screen Positive ng/mL (Cutoff = 50) H 12/13/16 18:20 Staphylococcus sp PCR DETECTED (Not Detect) A 12/13/16 15:41 mecA-Methicil Res Gene DETECTED (Not Detect) A 12/13/16 15:41 - Microbiology Findings Microbiology Findings: Microbiology, Last 48 Hours 12/25/16 03:40 Urine Culture - Final Urine,Catheterized No growth. 12/23/16 20:52 Sputum Culture - Final Sputum Escherichia coli - Clinical Findings Intake & Output: Intake & Output 12/26/16 12/27/16 12/27/16 23:59 07:59 15:59 Intake Total 100 / 100 100 / 100 300 / 300 Output Total 550 / 550 225 / 225 200 / 200 Balance -450 / -450 -125 / -125 100 / 100 Weight 66.4 kg - Attending Attestation I examined this patient and my medical decision-making was reviewed with the CHISELER HEAD/PA/Advanced Practice Nurse/Resident Physician. I agree with the documented findings, disposition and treatment plan as described except to the extent set forth below. Patient seen and examined. Labs, radiology, chart personally reviewed. Agree with resident's history and physical, assessment, plan with following comments: INTERVIEWING CLERK: Patient doesn't follows commands, GCS 12 Pulmonary: Acceptable oxygenation and ventilation. She will be at risk for aspiration Cardiovascular: stable GI: Nutrition per dietary and GI prophylaxis per routine. Palliative to address it with the family. Heme: DVT prophylaxis per routine ID: Continue antibiotics and plan to de-escalation Renal; urine out put and renal funtion reviewed Endorcine: blood glucose is monitored Lines: all lines checked and no evidence of infections Skin: skin care to prevent pressure ulcers per nursing routine care Transfer to palliative bed.
[2016-12-27] MEDS: Pantoprazole 40 MG VIAL IVPB SCH (08:35)
[2016-12-27] MEDS: Chlorhexidine Rinse 15 ML MOUTHWASH MM SCH (08:35)
[2016-12-27] MEDS: Meropenem 1,000 MG in 0.9 % Sodium Chloride Mini Bag 100 ML IVPB SCH ×2 (08:35→23:58)
[2016-12-27 08:50] LABS: Basophils # 0.1 K/mcL (0.0-0.2); Basophils % 0.4 %; Eosinophils # 0.1 K/mcL (0.0-0.6); Eosinophils % 0.4 %; Hematocrit 39.7 % (35.3-44.9); Hemoglobin 13.2 g/dL (11.5-15.4); Immature Granulocytes % 1.9 % (0-4); Lymphocytes # 2.4 K/mcL (0.6-4.6); Lymphocytes % 10.9 %; Mean Corpuscular HGB Conc 33.2 g/dL (31.6-35.5); Mean Corpuscular Hemoglobin 31.4 pg (28.0-33.3); Mean Corpuscular Volume 94.3 fL (83.0-100.0); Mean Platelet Volume 10.5 fL (9.4-12.4); Monocytes # 1.6 K/mcL (0.0-1.3); Monocytes % 7.3 %; Neutrophils # 17.2 K/mcL (1.6-8.9); Platelet Count 375 K/mcL (140-400); Red Blood Count 4.21 M/mcL (3.82-4.97); Red Cell Distribution Width 15.2 % (11.5-14.5); Segmented Neutrophils % 79.1 %
[2016-12-27] MEDS ORDERED: Dexamethasone 4 MG/ML VIAL IVP SCH ×2 (09:00→21:00)
[2016-12-27 09:01] LABS: BUN/Creatinine Ratio 48 (6-26); Blood Urea Nitrogen 30 mg/dL (7-20); Carbon Dioxide 22 mEq/L (19-29); Chloride 106 mEq/L (98-109); Glucose 90 mg/dL (70-99); Magnesium 2.3 mg/dL (1.6-2.6); Osmolality,Calculated 296 (280-300); Potassium 2.9 mEq/L (3.5-4.5); Sodium 140 mEq/L (136-145); eGFR For African Americans > 60 (> 60); eGFR For Non-African Americans > 60 (> 60)
[2016-12-27 09:02] LABS: Calcium 10.1 mg/dL (8.6-10.8)
[2016-12-27] MEDS ORDERED: *HR* Morphine 2 MG/ML SYRINGE IVP PRN (09:05)
[2016-12-27] MEDS ORDERED: Naloxone 0.4 MG/ML INJ IVP PRN ×2 (09:05→17:46)
[2016-12-27] MEDS ORDERED: *HR* LORazepam 2 MG/ML VIAL IVP PRN (09:05)
[2016-12-27] MEDS ORDERED: Budesonide/Formoterol 160/4.5 MDI IH SCH (10:00)
--- NOTE | 2016-12-27 10:24 | Palliative Progress Note ---
Date of Encounter: 12/27/16 Time of Encounter: 10:22 - Assessment and plan (1) Anoxic brain injury Current Visit: Yes Status: Acute Assessment and plan: Neurologic status unchanged. (2) Acute and chronic respiratory failure Current Visit: No Status: Acute Qualifiers: Respiratory failure complication: hypoxia and hypercapnia Qualified Code(s) : J96.21 - Acute and chronic respiratory failure with hypoxia; J96.22 - Acute and chronic respiratory failure with hypercapnia (3) Counseling regarding advanced care planning and goals of care Current Visit: Yes Status: Acute Assessment and plan: I was asked by the patients mother/POA (Timothy Lopez) to contact the patients father (Sandor Lopez) to provide an update on the plan of care and pending decisions for Ms. Perez. I presented the events of the past 18 hours ( including compassionate extubation, inability to clear airway/cough, buildup of secretions, means for nutrition and hydration). Following the presentation, Mr. Lopez became hostile on the phone and he escalated to yelling. He made statements such as I hope you people rot in hell referring to the hospital staff at [place]; I dont trust those foreigners; You people never gave her a chance. Mr. Lopez made several accusations regarding his ci-kfrp-LmakwTimothy Lopez-and her intentions. He made the statement Shes the one pura perez live with killing her daughter. I brought up the prior conversations and family meetings where the team, along with Sandor Lopez and Timothy Lopez, discussed usp prognosis and plan of care. Timothy Lopez reported in those prior meetings that Ms. Perez would not want to be kept alive by machines. Although Timothy Lopez was named as Ms. Perezs healthcare POA, she has always requested that Sandor Lopez be kept up to date on her condition and plan of care. Mr. Lopez's response: They {Ms. Perez and mother} went behind my back and did those papers {healthcare POA}, this is on her, she has to live with it. You people {healthcare professionals} will just go on and forget about er {referring to Ms. Perez}, but I have to deal with this the rest of my life. I reaffirmed to Mr. Lopez that the medical team is here to take care of Ms. Perez. Despite my efforts to de-escalate the conversation, Mr. Lopez continued to be hostile on the telephone. Mr. Lopez threatened lawsuit on at least 3 separate occasions. I offered, What can I do to help you. Mr. Aguilar response was I dont know, keep me from blowing my brains out. Mr. Lopez had stated early in the conversation that he had a permit to carry a concealed weapon. Security was contacted to follow up on his safety. Conversation occurred on 12/27/16 at 9:55am and lasted 22 min. Update 12/27/16 @2:32pm: Discussed case with mother/POA Timothy Lopez to determine goal for further care. Ms. Lopez inquired about IV nutrition. We discussed the indications for IV nutrition and Ms. Perez had a functioning digestive system, and therefore, feeding her via feeding tube would be the recommended way to provide nutrition. She was cautioned again about the risk for aspiration associated with feeding tubes. Plan to proceed with placement of temporary feeding tube and consult dietitian for recommendations. (4) Aspiration pneumonia Current Visit: No Status: Suspected Assessment and plan: Discussed further risk of aspiration as the patient cannot control her oral secretions. Qualifiers: Aspiration pneumonia type: unspecified Laterality: bilateral Lung location: unspecified part of lung Qualified Code(s): J69.0 - Pneumonitis due to inhalation of food and vomit (5) Cardiac arrest Current Visit: Yes Status: Acute Assessment and plan: Timothy Lopez (POA) continues to support current code status as of conversation at 2:32pm. - Time Spent With Patient Total time spent is greater than 50% in coordination of care (as documented) at patient's floor/unit and/or counseling patient: - Subjective Interval history: 36 year old female, liberated from mechanical ventilation yesterday. Initially placed on nasal cannula at 4 liters, but required additional oxygen support throughout the night. - Constitutional Vitals: Abnormal lab results WBC 21.7 K/mcL (4.3-11.1) H 12/27/16 08:35 RDW 15.2 % (11.5-14.5) H 12/27/16 08:35 Metamyelocytes % 4.0 % (0) H 12/14/16 23:35 Promyelocytes % 1.0 % (0) H 12/14/16 00:25 Neutrophils # 17.2 K/mcL (1.6-8.9) H 12/27/16 08:35 Monocytes # 1.6 K/mcL (0.0-1.3) H 12/27/16 08:35 Nucleated RBCs/100 WBC 0.2 /100 WBC (0) H 12/20/16 03:45 Hypersegmented Neuts Present (Not Present) A 12/26/16 03:21 Reactive Lymphocytes Present (Not Present) A 12/26/16 03:21 Clumped Platelets Few (Not Present) A 12/14/16 00:25 Large Platelets Present (Not Present) A 12/26/16 03:21 Polychromasia 1+ (Not Present) A 12/13/16 15:41 PT 14.9 Seconds (9.4-12.1) H 12/15/16 05:10 ABG pH 7.51 pH Units (7.32-7.45) H 12/26/16 04:39 ABG pCO2 33 mmHg (35-45) L 12/26/16 04:39 ABG pO2 111 mmHg (85-104) H 12/26/16 04:39 ABG Total CO2 27.3 mEq/L (20-26) H 12/26/16 04:39 ABG O2 Saturation 99 % (95-98) H 12/26/16 04:39 ABG Base Excess 3.6 mEq/L (-2.0 to 3.0) H 12/26/16 04:39 Potassium 2.9 mEq/L (3.5-4.5) L 12/27/16 08:35 BUN 30 mg/dL (7-20) H 12/27/16 08:35 BUN/Creatinine Ratio 48 (6-26) H 12/27/16 08:35 POC Glucose 130 (58-89) H 12/26/16 05:41 AST 167 Units/L (5-34) H 12/14/16 05:44 ALT 60 Units/L (0-55) H 12/14/16 05:44 Troponin I 1.06 ng/mL (0-0.03) H* 12/14/16 05:44 B-Natriuretic Peptide 150 pg/mL (0-100) H 12/13/16 16:45 Serum Total Protein 5.5 g/dL (6.0-8.3) L 12/14/16 05:44 Albumin 2.3 g/dL (3.5-5.0) L 12/14/16 05:44 Albumin/Globulin Ratio 0.7 (1.1-2.2) L 12/14/16 05:44 Urine Color [place] (Yellow) A 12/13/16 15:06 Urine Clarity Turbid (Clear) A 12/13/16 15:06 Urine Protein 100 mg/dL (Neg-Trace) H 12/13/16 15:06 Urine Ketones 15 mg/dL (Negative) H 12/13/16 15:06 Urine Blood Large (Negative) H 12/13/16 15:06 Urine Bilirubin Moderate (Negative) H 12/13/16 15:06 Ur Leukocyte Esterase Large (Negative) H 12/13/16 15:06 Urine Microscopic RBC 50-100 per hpf (0-3) H 12/13/16 15:06 Urine Microscopic WBC 30-50 per hpf (0-3) H 12/13/16 15:06 Urine Bacteria Many per hpf (None-Few) H 12/13/16 15:06 Ur Culture Indicated? YES (NO) A 12/13/16 15:06 Stl Norovirus GI/GII PCR DETECTED (Not detect) A 12/13/16 21:44 Urine Opiates Screen Positive ng/mL (Dvqcfc=768) H 12/13/16 18:20 Acetaminophen < 1.0 mcg/mL (10-30) L 12/13/16 19:30 U Benzodiazepines Scrn Positive ng/mL (Cdfmex=907) H 12/13/16 18:20 U Marijuana (THC) Screen Positive ng/mL (Cutoff = 50) H 12/13/16 18:20 Staphylococcus sp PCR DETECTED (Not Detect) A 12/13/16 15:41 mecA-Methicil Res Gene DETECTED (Not Detect) A 12/13/16 15:41 Exam: 36 year old female, liberated from mechanical ventilation yesterday. Initially placed on nasal cannula at 4 liters, but required additional oxygen support throughout the night. She remains unresponsive to verbal or tactile commands. - Eye Eye exam: Present: PERRL - ENT ENT exam: Present: mucous membranes moist - Respiratory Respiratory exam: Present: rhonchi, tachypnea - Cardiovascular Cardiovascular exam: Present: tachycardia (heart rate 113) - GI/Abdominal GI/Abdominal exam: Present: normal bowel sounds, soft - Extremities Exam Additional comments: bilateral foot drop - Neurological Exam Additional comments: eyes open, does not follow commands. posturing noted - Psychiatric Psychiatric exam: Absent: agitated, anxious - Skin Skin exam: Present: dry, warm Palliative Quality Palliative Quality: Screen for Code Status: NA (pt not responsive, awaiting family meeting), Screen for Goals of Care: NA, Screen for Pain: NA, If Pain Regimen Started, Initiate Bowel Regimen: NA, Screen for Nausea/Vomitting: NA Code Status: 12/13/16 18:17 Resuscitation Status: Active [RES] Routine Comment: Resuscitation Status: Full Code Resuscitation Status: Active [RES] Routine Comment: Resuscitation Status: [id number] - Labs CBC & Chem 7: 12/27/16 08:35 12/27/16 08:35 Labs: Laboratory Results - last 24 hr 12/26/16 12/27/16 12/27/16 05:41 08:35 08:35 WBC 21.7 H RBC 4.21 Hgb 13.2 Hct 39.7 MCV 94.3 MCH 31.4 MCHC 33.2 RDW 15.2 H Plt Count 375 MPV 10.5 Immature Gran % 1.9 Seg Neutrophils % 79.1 Lymphocytes % 10.9 Monocytes % 7.3 Eosinophils % 0.4 Basophils % 0.4 Neutrophils # 17.2 H Lymphocytes # 2.4 Monocytes # 1.6 H Eosinophils # 0.1 Basophils # 0.1 Sodium 140 Potassium 2.9 L Chloride 106 Carbon Dioxide 22 BUN 30 H Creatinine 0.63 Est GFR ( Amer) > 60 Est GFR (Non-Af Amer) > 60 BUN/Creatinine Ratio 48 H Glucose 90 POC Glucose 130 H Calculated Osmolality 296 Calcium 10.1 D Magnesium 2.3 - ABG Interpretation ABG results: ABG ABG pH 7.51 pH Units (7.32-7.45) H 12/26/16 04:39 ABG pCO2 33 mmHg (35-45) L 12/26/16 04:39 ABG pO2 111 mmHg (85-104) H 12/26/16 04:39 ABG O2 Saturation 99 % (95-98) H 12/26/16 04:39 PT/INR, D-dimer PT 14.9 Seconds (9.4-12.1) H 12/15/16 05:10 Consult Discharge Plan - Plan Referrals: NO,PCP [Non-Partnered Physician] -
[2016-12-27] MEDS ORDERED: *HR* Heparin 5,000 UNIT/ML VIAL SQ SCH (14:00)
[2016-12-27] MEDS ORDERED: Meropenem 1,000 MG in 0.9 % Sodium Chloride Mini Bag 100 ML IVPB SCH (16:00)
[2016-12-27] MEDS: Dexamethasone 4 MG/ML VIAL IVP SCH (20:44)
[2016-12-28] MEDS: Ipratropium/Albuterol Neb 3 ML IH SCH ×4 (04:23→22:26)
[2016-12-28 04:28] LABS: Basophils # 0.1 K/mcL (0.0-0.2); Basophils % 0.3 %; Eosinophils % 0.1 %; Hematocrit 41.3 % (35.3-44.9); Hemoglobin 13.4 g/dL (11.5-15.4); Immature Granulocytes % 2.2 % (0-4); Lymphocytes # 0.9 K/mcL (0.6-4.6); Lymphocytes % 4.5 %; Mean Corpuscular HGB Conc 32.4 g/dL (31.6-35.5); Mean Corpuscular Hemoglobin 30.9 pg (28.0-33.3); Mean Corpuscular Volume 95.2 fL (83.0-100.0); Mean Platelet Volume 10.8 fL (9.4-12.4); Monocytes # 0.6 K/mcL (0.0-1.3); Neutrophils # 17.4 K/mcL (1.6-8.9); Platelet Count 431 K/mcL (140-400); Red Blood Count 4.34 M/mcL (3.82-4.97); Segmented Neutrophils % 89.9 %
[2016-12-28 04:42] LABS: BUN/Creatinine Ratio 51 (6-26); Blood Urea Nitrogen 30 mg/dL (7-20); Carbon Dioxide 23 mEq/L (19-29); Chloride 107 mEq/L (98-109); Glucose 107 mg/dL (70-99); Magnesium 2.4 mg/dL (1.6-2.6); Osmolality,Calculated 297 (280-300); Potassium 3.8 mEq/L (3.5-4.5); Sodium 140 mEq/L (136-145); eGFR For African Americans > 60 (> 60); eGFR For Non-African Americans > 60 (> 60)
[2016-12-28] MEDS: *HR* Heparin 5,000 UNIT/ML VIAL SQ SCH ×3 (06:42→22:53)
[2016-12-28] MEDS ORDERED: Pantoprazole 40 MG VIAL IVPB SCH (09:00)
--- NOTE | 2016-12-28 09:07 | Palliative Progress Note ---
Date of Encounter: 12/28/16 Time of Encounter: 09:05 - Assessment and plan (1) Anoxic brain injury Current Visit: Yes Status: Acute Assessment and plan: Neurologic status unchanged. (2) Acute and chronic respiratory failure Current Visit: No Status: Acute Qualifiers: Respiratory failure complication: hypoxia and hypercapnia Qualified Code(s) : J96.21 - Acute and chronic respiratory failure with hypoxia; J96.22 - Acute and chronic respiratory failure with hypercapnia (3) Counseling regarding advanced care planning and goals of care Current Visit: Yes Status: Acute Assessment and plan: Discussed continued plan of care for nutrition and hydration. Currently using an NG tube. Consult surgical services for PEG placement. Family asking for time to consider options. POA/Mother-Nesta Azulner aware of the risks of aspiration. Mother will contact palliative care team with decision regarding permanent feeding tube. (4) Aspiration pneumonia Current Visit: No Status: Suspected Assessment and plan: Discussed further risk of aspiration as the patient cannot control her oral secretions. She will require suctioning on a regular basis. Qualifiers: Aspiration pneumonia type: unspecified Laterality: bilateral Lung location: unspecified part of lung Qualified Code(s): J69.0 - Pneumonitis due to inhalation of food and vomit (5) Cardiac arrest Current Visit: Yes Status: Acute - Time Spent With Patient Total time spent is greater than 50% in coordination of care (as documented) at patient's floor/unit and/or counseling patient: - Subjective Interval history: 36 year old female transferred out of the intensive care unit yesterday. O2 supplied via face mask. NG tube placed yesterday for nutritional support and medication administration. - Constitutional Vitals: Abnormal lab results WBC 19.4 K/mcL (4.3-11.1) H 12/28/16 04:14 RDW 15.0 % (11.5-14.5) H 12/28/16 04:14 Plt Count 431 K/mcL (140-400) H 12/28/16 04:14 Metamyelocytes % 4.0 % (0) H 12/14/16 23:35 Promyelocytes % 1.0 % (0) H 12/14/16 00:25 Neutrophils # 17.4 K/mcL (1.6-8.9) H 12/28/16 04:14 Nucleated RBCs/100 WBC 0.2 /100 WBC (0) H 12/20/16 03:45 Hypersegmented Neuts Present (Not Present) A 12/26/16 03:21 Reactive Lymphocytes Present (Not Present) A 12/26/16 03:21 Clumped Platelets Few (Not Present) A 12/14/16 00:25 Large Platelets Present (Not Present) A 12/26/16 03:21 Polychromasia 1+ (Not Present) A 12/13/16 15:41 PT 14.9 Seconds (9.4-12.1) H 12/15/16 05:10 ABG pH 7.51 pH Units (7.32-7.45) H 12/26/16 04:39 ABG pCO2 33 mmHg (35-45) L 12/26/16 04:39 ABG pO2 111 mmHg (85-104) H 12/26/16 04:39 ABG Total CO2 27.3 mEq/L (20-26) H 12/26/16 04:39 ABG O2 Saturation 99 % (95-98) H 12/26/16 04:39 ABG Base Excess 3.6 mEq/L (-2.0 to 3.0) H 12/26/16 04:39 BUN 30 mg/dL (7-20) H 12/28/16 04:14 BUN/Creatinine Ratio 51 (6-26) H 12/28/16 04:14 Glucose 107 mg/dL (70-99) H 12/28/16 04:14 POC Glucose 130 (58-89) H 12/26/16 05:41 AST 167 Units/L (5-34) H 12/14/16 05:44 ALT 60 Units/L (0-55) H 12/14/16 05:44 Troponin I 1.06 ng/mL (0-0.03) H* 12/14/16 05:44 B-Natriuretic Peptide 150 pg/mL (0-100) H 12/13/16 16:45 Serum Total Protein 5.5 g/dL (6.0-8.3) L 12/14/16 05:44 Albumin 2.3 g/dL (3.5-5.0) L 12/14/16 05:44 Albumin/Globulin Ratio 0.7 (1.1-2.2) L 12/14/16 05:44 Urine Color [place] (Yellow) A 12/13/16 15:06 Urine Clarity Turbid (Clear) A 12/13/16 15:06 Urine Protein 100 mg/dL (Neg-Trace) H 12/13/16 15:06 Urine Ketones 15 mg/dL (Negative) H 12/13/16 15:06 Urine Blood Large (Negative) H 12/13/16 15:06 Urine Bilirubin Moderate (Negative) H 12/13/16 15:06 Ur Leukocyte Esterase Large (Negative) H 12/13/16 15:06 Urine Microscopic RBC 50-100 per hpf (0-3) H 12/13/16 15:06 Urine Microscopic WBC 30-50 per hpf (0-3) H 12/13/16 15:06 Urine Bacteria Many per hpf (None-Few) H 12/13/16 15:06 Ur Culture Indicated? YES (NO) A 12/13/16 15:06 Stl Norovirus GI/GII PCR DETECTED (Not detect) A 12/13/16 21:44 Urine Opiates Screen Positive ng/mL (Vrzmqx=693) H 12/13/16 18:20 Acetaminophen < 1.0 mcg/mL (10-30) L 12/13/16 19:30 U Benzodiazepines Scrn Positive ng/mL (Ghliny=084) H 12/13/16 18:20 U Marijuana (THC) Screen Positive ng/mL (Cutoff = 50) H 12/13/16 18:20 Staphylococcus sp PCR DETECTED (Not Detect) A 12/13/16 15:41 mecA-Methicil Res Gene DETECTED (Not Detect) A 12/13/16 15:41 Exam: 36 year old female, non-verbal, unresponsive, corneal reflex intact. - Eye Additional comments: does not track, corneal reflex intact - ENT ENT exam: Present: mucous membranes moist Additional comments: NG tube intact - Respiratory Respiratory exam: Present: rhonchi. Absent: respiratory distress, tachypnea Additional comments: On supplemental oxygen via oximizer mask, requires deep oral suctioning PRN for secretions. - GI/Abdominal GI/Abdominal exam: Present: normal bowel sounds, soft - Extremities Exam Additional comments: bilateral foot drop - Neurological Exam Additional comments: eyes open, but does not track. Non-verbal, unresponsive to pain. - Psychiatric Psychiatric exam: Absent: agitated - Skin Additional comments: abrasions noted to bilateral shins. Palliative Quality Palliative Quality: Screen for Code Status: NA (pt not responsive, awaiting family meeting), Screen for Goals of Care: NA, Screen for Pain: NA, If Pain Regimen Started, Initiate Bowel Regimen: NA, Screen for Nausea/Vomitting: NA Code Status: 12/13/16 18:17 Resuscitation Status: Active [RES] Routine Comment: Resuscitation Status: Full Code Resuscitation Status: Active [RES] Routine Comment: Resuscitation Status: [id number] - Labs CBC & Chem 7: 12/28/16 04:14 12/28/16 04:14 Labs: Laboratory Results - last 24 hr 12/28/16 12/28/16 04:14 04:14 WBC 19.4 H RBC 4.34 Hgb 13.4 Hct 41.3 MCV 95.2 MCH 30.9 MCHC 32.4 RDW 15.0 H Plt Count 431 H MPV 10.8 Immature Gran % 2.2 Seg Neutrophils % 89.9 Lymphocytes % 4.5 Monocytes % 3.0 Eosinophils % 0.1 Basophils % 0.3 Neutrophils # 17.4 H Lymphocytes # 0.9 Monocytes # 0.6 Eosinophils # 0.0 Basophils # 0.1 Sodium 140 Potassium 3.8 Chloride 107 Carbon Dioxide 23 BUN 30 H Creatinine 0.59 Est GFR ( Amer) > 60 Est GFR (Non-Af Amer) > 60 BUN/Creatinine Ratio 51 H Glucose 107 H Calculated Osmolality 297 Calcium 10.0 Magnesium 2.4 - Impressions Impressions KUB X-Ray 12/27/16 16:47 IMPRESSION: Enteric tube tip seen in the region the gastric antrum. No free air. Vague linear opacifications seen in the right upper lobe at the corner of the film. This could represent atelectasis, or possibly an infiltrate. There is also a linear infiltrate seen in the retrocardiac region. These areas could be further assessed with a two-view chest if indicated. D/ / Neftali Walters MD / Neftali Walters MD Interpreting Provider: Neftali Walters MD - ABG Interpretation ABG results: ABG ABG pH 7.51 pH Units (7.32-7.45) H 12/26/16 04:39 ABG pCO2 33 mmHg (35-45) L 12/26/16 04:39 ABG pO2 111 mmHg (85-104) H 12/26/16 04:39 ABG O2 Saturation 99 % (95-98) H 12/26/16 04:39 PT/INR, D-dimer PT 14.9 Seconds (9.4-12.1) H 12/15/16 05:10 Consult Discharge Plan - Plan Referrals: NO,PCP [Non-Partnered Physician] -
--- NOTE | 2016-12-28 09:53 | Internal Med Progress Note ---
Date of Encounter: 12/28/16 Time of Encounter: 09:49 - Assessment and plan (1) Aspiration pneumonia Current Visit: Yes Status: Suspected Assessment and plan: Suspected, secondary to substance abuse and having been found unresponsive at home. One out of 2 initial blood cultures grew staph epidermidis and repeat blood cultures show no growth. Sputum culture grows Escherichia coli. Continue IV meropenem to complete a 14 day course. Supportive care and supplemental oxygen. Continues to require 15 L/m oxygen via Venti mask. Qualifiers: Aspiration pneumonia type: unspecified Laterality: bilateral Lung location: unspecified part of lung Qualified Code(s): J69.0 - Pneumonitis due to inhalation of food and vomit (2) Urinary tract infection Current Visit: Yes Status: Acute Assessment and plan: Urine culture grows Escherichia coli. Continue IV meropenem as above. Qualifiers: Urinary tract infection type: site unspecified Hematuria presence: without hematuria Qualified Code(s): N39.0 - Urinary tract infection, site not specified (3) Sepsis Current Visit: Yes Status: Resolved Qualifiers: Sepsis type: Escherichia coli Qualified Code(s): A41.51 - Sepsis due to Escherichia coli [E. coli] (4) Cardiac arrest Current Visit: Yes Status: Acute (5) Anoxic brain injury Current Visit: Yes Status: Acute Assessment and plan: Suspected anoxic brain injury secondary to cardiac arrest. Patient has no purposeful movements, nonverbal with bilateral fixed and dilated pupils. Palliative care team is on board and patient does have a complex social situation. Medical power of insurance attorney seems to be her mother. CODE STATUS has been changed to DNR/DNI but no decision has been made regarding hospice/ palliative care. Patient cannot have any oral intake with her encephalopathy, which is not expected to improve anytime soon. She would require PEG tube placement for continued nutrition. Surgery consult. (6) Norovirus Current Visit: Yes Status: Resolved (7) COPD (chronic obstructive pulmonary disease) Current Visit: Yes Status: Chronic Assessment and plan: Does have significant smoking history. Continue when necessary bronchodilators. Continues to require high flow oxygen via Ventimask. 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 Absent: accessory muscle use, rales, rhonchi, wheezes - Cardiovascular Cardiovascular exam: Present: RRR, +S1, +S2, tachycardia. Absent: diastolic murmur, gallop, rubs, systolic murmur - GI/Abdominal GI/Abdominal exam: Present: normal bowel sounds, soft, no peritoneal signs. Absent: distended, tenderness - Extremities Exam Extremities exam: Present: warm, radial pulses palpable and symetrical. Absent : calf tenderness, cyanotic, pedal edema - Neurological Exam Neurological exam: Present: no focal deficits (extensor response to pain B/L, no purposeful movements). Absent: pronater drift, facial droop, speech deficit Internal Medicine: Result - Labs CBC & Chem 7: 12/28/16 04:14 12/28/16 04:14 Labs: Short CBC 12/28/16 Range/Units 04:14 WBC 19.4 H (4.3-11.1) K/mcL Hgb 13.4 (11.5-15.4) g/dL Hct 41.3 (35.3-44.9) % Plt Count 431 H (140-400) K/mcL Neutrophils # 17.4 H (1.6-8.9) K/mcL BMP 12/28/16 04:14 Sodium 140 Potassium 3.8 Chloride 107 Carbon Dioxide 23 BUN 30 H Creatinine 0.59 Glucose 107 H Calcium 10.0 - ABG Interpretation ABG results: ABG ABG pH 7.51 pH Units (7.32-7.45) H 12/26/16 04:39 ABG pCO2 33 mmHg (35-45) L 12/26/16 04:39 ABG pO2 111 mmHg (85-104) H 12/26/16 04:39 ABG O2 Saturation 99 % (95-98) H 12/26/16 04:39 PT/INR, D-dimer PT 14.9 Seconds (9.4-12.1) H 12/15/16 05:10 - Impressions Impressions KUB X-Ray 12/27/16 16:47 IMPRESSION: Enteric tube tip seen in the region the gastric antrum. No free air. Vague linear opacifications seen in the right upper lobe at the corner of the film. This could represent atelectasis, or possibly an infiltrate. There is also a linear infiltrate seen in the retrocardiac region. These areas could be further assessed with a two-view chest if indicated. D/ / Neftali Walters MD / Neftali Walters MD Interpreting Provider: Neftali Walters MD - VTE Documentation of Mechanical Device: Graduated compression elastic hosiery Consult Discharge Plan - Plan Referrals: NO,PCP [Non-Partnered Physician] -
[2016-12-28] MEDS: Meropenem 1,000 MG in 0.9 % Sodium Chloride Mini Bag 100 ML IVPB SCH ×2 (10:03→15:03)
[2016-12-28] MEDS: Pantoprazole 40 MG VIAL IVPB SCH (10:04)
[2016-12-28] MEDS: Dexamethasone 4 MG/ML VIAL IVP SCH ×2 (10:04→22:51)
--- NOTE | 2016-12-28 15:55 | Event Note ---
Date of Encounter: 12/28/16 Time of Encounter: 15:00 General surgery was asked to see and evaluate the patient for a percutaneous peg tube placement. She has a PMH significant for brainstem glioma, dysphagia, recreational drug use, asthma, COPD requiring home oxygen, seizures. She presented to the ED via EMS due to acute respiratory distress and altered mental status. She did require endotracheal intubation on arrival and then subsequently experienced a cardiopulmonary arrest. The patient is felt to have an anoxic brain injury. She has no purposeful movements at this time and is clearly unable to take PO nutrition. She does currently have temporary NG tube in place to initiate tube feeds. I have discussed peg tube placement with the palliative care team as well as the patient's mother (POA). The patient's mother does not want to proceed with peg tube placement at this time. She states that they may reconsider in the upcoming days. Her currently oxygen requirement is 15L high flow via face mask. It may be difficult for her to tolerate feeding tube placement/sedation with this level of oxygen requirement. Thank you for allowing us to participate in the care of this patient. Please call for surgery to re-assess if the patient's family would like to proceed with peg tube placement.
[2016-12-29] MEDS: Meropenem 1,000 MG in 0.9 % Sodium Chloride Mini Bag 100 ML IVPB SCH ×4 (00:55→23:46)
[2016-12-29] MEDS: Ipratropium/Albuterol Neb 3 ML IH SCH ×4 (04:01→22:49)
[2016-12-29] MEDS: Nystatin POWDER 30 GM BOTTLE TP SCH ×4 (05:00→23:46)
[2016-12-29] MEDS: *HR* Heparin 5,000 UNIT/ML VIAL SQ SCH ×3 (06:55→22:08)
[2016-12-29] MEDS ORDERED: 0.9 % Sodium Chloride Mini Bag 100 ML ONE (09:19)
[2016-12-29] MEDS: Pantoprazole 40 MG VIAL IVPB SCH (09:20)
[2016-12-29] MEDS: Dexamethasone 4 MG/ML VIAL IVP SCH ×2 (09:21→22:08)
--- NOTE | 2016-12-29 09:47 | Palliative Progress Note ---
Date of Encounter: 12/29/16 Time of Encounter: 09:40 - Assessment and plan (1) Anoxic brain injury Current Visit: Yes Status: Acute Assessment and plan: Neuro status remains unchanged (2) Aspiration pneumonia Current Visit: Yes Status: Suspected Assessment and plan: Continues on IV antibiotics Qualifiers: Aspiration pneumonia type: unspecified Laterality: bilateral Lung location: unspecified part of lung Qualified Code(s): J69.0 - Pneumonitis due to inhalation of food and vomit (3) Acute and chronic respiratory failure Current Visit: No Status: Acute Qualifiers: Respiratory failure complication: hypoxia and hypercapnia Qualified Code(s) : J96.21 - Acute and chronic respiratory failure with hypoxia; J96.22 - Acute and chronic respiratory failure with hypercapnia (4) Cardiac arrest Current Visit: Yes Status: Acute (5) Counseling regarding advanced care planning and goals of care Current Visit: Yes Status: Acute Assessment and plan: Mother remains undecided on if she desires permanent PEG placement, but does desire feedings through NG until she decides. Will D/W liner checker. Overall prognosis remains poor. - Time Spent With Patient Total time spent is greater than 50% in coordination of care (as documented) at patient's floor/unit and/or counseling patient: 25 - 35 minutes - Subjective Interval history: Patient neuro status remains unchanged, she will open eyes with tactile stimulation, but no other response. Low grade temp of 100.5 this am. Appears in no distress. No family present - Constitutional Vitals: Abnormal lab results WBC 19.4 K/mcL (4.3-11.1) H 12/28/16 04:14 RDW 15.0 % (11.5-14.5) H 12/28/16 04:14 Plt Count 431 K/mcL (140-400) H 12/28/16 04:14 Metamyelocytes % 4.0 % (0) H 12/14/16 23:35 Promyelocytes % 1.0 % (0) H 12/14/16 00:25 Neutrophils # 17.4 K/mcL (1.6-8.9) H 12/28/16 04:14 Nucleated RBCs/100 WBC 0.2 /100 WBC (0) H 12/20/16 03:45 Hypersegmented Neuts Present (Not Present) A 12/26/16 03:21 Reactive Lymphocytes Present (Not Present) A 12/26/16 03:21 Clumped Platelets Few (Not Present) A 12/14/16 00:25 Large Platelets Present (Not Present) A 12/26/16 03:21 Polychromasia 1+ (Not Present) A 12/13/16 15:41 PT 14.9 Seconds (9.4-12.1) H 12/15/16 05:10 ABG pH 7.51 pH Units (7.32-7.45) H 12/26/16 04:39 ABG pCO2 33 mmHg (35-45) L 12/26/16 04:39 ABG pO2 111 mmHg (85-104) H 12/26/16 04:39 ABG Total CO2 27.3 mEq/L (20-26) H 12/26/16 04:39 ABG O2 Saturation 99 % (95-98) H 12/26/16 04:39 ABG Base Excess 3.6 mEq/L (-2.0 to 3.0) H 12/26/16 04:39 BUN 30 mg/dL (7-20) H 12/28/16 04:14 BUN/Creatinine Ratio 51 (6-26) H 12/28/16 04:14 Glucose 107 mg/dL (70-99) H 12/28/16 04:14 POC Glucose 130 (58-89) H 12/26/16 05:41 AST 167 Units/L (5-34) H 12/14/16 05:44 ALT 60 Units/L (0-55) H 12/14/16 05:44 Troponin I 1.06 ng/mL (0-0.03) H* 12/14/16 05:44 B-Natriuretic Peptide 150 pg/mL (0-100) H 12/13/16 16:45 Serum Total Protein 5.5 g/dL (6.0-8.3) L 12/14/16 05:44 Albumin 2.3 g/dL (3.5-5.0) L 12/14/16 05:44 Albumin/Globulin Ratio 0.7 (1.1-2.2) L 12/14/16 05:44 Urine Color [place] (Yellow) A 12/13/16 15:06 Urine Clarity Turbid (Clear) A 12/13/16 15:06 Urine Protein 100 mg/dL (Neg-Trace) H 12/13/16 15:06 Urine Ketones 15 mg/dL (Negative) H 12/13/16 15:06 Urine Blood Large (Negative) H 12/13/16 15:06 Urine Bilirubin Moderate (Negative) H 12/13/16 15:06 Ur Leukocyte Esterase Large (Negative) H 12/13/16 15:06 Urine Microscopic RBC 50-100 per hpf (0-3) H 12/13/16 15:06 Urine Microscopic WBC 30-50 per hpf (0-3) H 12/13/16 15:06 Urine Bacteria Many per hpf (None-Few) H 12/13/16 15:06 Ur Culture Indicated? YES (NO) A 12/13/16 15:06 Stl Norovirus GI/GII PCR DETECTED (Not detect) A 12/13/16 21:44 Urine Opiates Screen Positive ng/mL (Gttmbu=354) H 12/13/16 18:20 Acetaminophen < 1.0 mcg/mL (10-30) L 12/13/16 19:30 U Benzodiazepines Scrn Positive ng/mL (Msfzzh=233) H 12/13/16 18:20 U Marijuana (THC) Screen Positive ng/mL (Cutoff = 50) H 12/13/16 18:20 Staphylococcus sp PCR DETECTED (Not Detect) A 12/13/16 15:41 mecA-Methicil Res Gene DETECTED (Not Detect) A 12/13/16 15:41 - Respiratory Respiratory exam: Present: decreased breath sounds, CTAB Additional comments: Occasional rhonchi noted - Cardiovascular Cardiovascular exam: Present: tachycardia - GI/Abdominal GI/Abdominal exam: Present: normal bowel sounds, soft Additional comments: NG tube intact - Additional comments: Engel with yellow urine - Extremities Exam Extremities exam: Present: normal capillary refill, normal inspection - Neurological Exam Additional comments: Minimally responsive, opens eyes with tactile stimulation. No purposeful movement noted. Performed passive ROM - Skin Skin exam: Present: dry, pallor, warm Palliative Quality Palliative Quality: Screen for Code Status: NA (pt not responsive, awaiting family meeting), Screen for Goals of Care: NA, Screen for Pain: NA, If Pain Regimen Started, Initiate Bowel Regimen: NA, Screen for Nausea/Vomitting: NA Code Status: 12/13/16 18:17 Resuscitation Status: Active [RES] Routine Comment: Resuscitation Status: Full Code Resuscitation Status: Active [RES] Routine Comment: Resuscitation Status: [id number] - Labs CBC & Chem 7: 12/28/16 04:14 12/28/16 04:14 - ABG Interpretation ABG results: ABG ABG pH 7.51 pH Units (7.32-7.45) H 12/26/16 04:39 ABG pCO2 33 mmHg (35-45) L 12/26/16 04:39 ABG pO2 111 mmHg (85-104) H 12/26/16 04:39 ABG O2 Saturation 99 % (95-98) H 12/26/16 04:39 PT/INR, D-dimer PT 14.9 Seconds (9.4-12.1) H 12/15/16 05:10 Consult Discharge Plan - Plan Referrals: NO,PCP [Non-Partnered Physician] -
--- NOTE | 2016-12-29 13:03 | Internal Med Progress Note ---
Date of Encounter: 12/29/16 Time of Encounter: 13:01 - Assessment and plan (1) Aspiration pneumonia Current Visit: Yes Status: Suspected Assessment and plan: Suspected, secondary to substance abuse and having been found unresponsive at home. One out of 2 initial blood cultures grew staph epidermidis and repeat blood cultures show no growth. Sputum culture grows Escherichia coli. Continue IV meropenem to complete a 14 day course. Supportive care and supplemental oxygen. Continues to require 15 L/m oxygen via Venti mask. Qualifiers: Aspiration pneumonia type: unspecified Laterality: bilateral Lung location: unspecified part of lung Qualified Code(s): J69.0 - Pneumonitis due to inhalation of food and vomit (2) Urinary tract infection Current Visit: Yes Status: Acute Assessment and plan: Urine culture grows Escherichia coli. Continue IV meropenem as above. Qualifiers: Urinary tract infection type: site unspecified Hematuria presence: without hematuria Qualified Code(s): N39.0 - Urinary tract infection, site not specified (3) Sepsis Current Visit: Yes Status: Resolved Qualifiers: Sepsis type: Escherichia coli Qualified Code(s): A41.51 - Sepsis due to Escherichia coli [E. coli] (4) Cardiac arrest Current Visit: Yes Status: Acute (5) Anoxic brain injury Current Visit: Yes Status: Acute Assessment and plan: Suspected anoxic brain injury secondary to cardiac arrest. Patient has no purposeful movements, nonverbal with bilateral fixed and dilated pupils. Palliative care team is on board and patient does have a complex social situation. Medical power of assistant city attorney seems to be her mother. CODE STATUS has been changed to DNR/DNI but no decision has been made regarding hospice/ palliative care. Patient cannot have any oral intake with her encephalopathy, which is not expected to improve anytime soon. She would require PEG tube placement for continued nutrition. Surgery consult noted, patient's mother currently does not give consent for PEG placement and patient also continues to require 15 L/m oxygen via Ventimask and would not be able to tolerate sedation. Patient is also noted to have low-grade fever and sinus tachycardia, which is likely central in origin. We will give supportive care with Tylenol and IV hydration at this time. Patient is already on IV meropenem and repeat blood cultures have been negative. (6) Norovirus Current Visit: Yes Status: Resolved (7) COPD (chronic obstructive pulmonary disease) Current Visit: Yes Status: Chronic Qualifiers: COPD type: unspecified COPD Qualified Code(s): J44.9 - Chronic obstructive pulmonary disease, unspecified (8) Glioblastoma multiforme of brain Current Visit: Yes Status: Chronic (9) Fever Current Visit: Yes Status: Acute Assessment and plan: Likely central in origin, along with sinus tachycardia. Continue when necessary Tylenol and IV hydration. Less likely due to infection. Qualifiers: Fever type: due to other condition Qualified Code(s): R50.81 - Fever presenting with conditions classified elsewhere - Subjective Interval history: Lying in bed with eyes closed; continues to require 15L/min via Ventimask; noted to have low grade fever and tachycardia; - Constitutional Vitals: Temp Pulse Resp BP Pulse Ox 100.5 F H 120 25 124/89 96 12/29/16 08:01 12/29/16 08:01 12/29/16 08:39 12/29/16 08:01 12/29/16 08:39 General appearance: Present: A&O X 0 (somnolent, comatose) - Respiratory Respiratory exam: Present: CTAB (anteriolaterally). Absent: accessory muscle use, rales, rhonchi, wheezes - Cardiovascular Cardiovascular exam: Present: RRR, +S1, +S2, tachycardia. Absent: diastolic murmur, gallop, rubs, systolic murmur - GI/Abdominal GI/Abdominal exam: Present: normal bowel sounds, soft, no peritoneal signs. Absent: distended, tenderness - Extremities Exam Extremities exam: Present: warm, radial pulses palpable and symetrical. Absent : calf tenderness, cyanotic, pedal edema - Neurological Exam Neurological exam: Present: altered (GCS 4), no focal deficits (no purposeful movements; extremities in extended position). Absent: pronater drift, facial droop, speech deficit Internal Medicine: Result - Labs CBC & Chem 7: 12/28/16 04:14 12/28/16 04:14 - ABG Interpretation ABG results: ABG ABG pH 7.51 pH Units (7.32-7.45) H 12/26/16 04:39 ABG pCO2 33 mmHg (35-45) L 12/26/16 04:39 ABG pO2 111 mmHg (85-104) H 12/26/16 04:39 ABG O2 Saturation 99 % (95-98) H 12/26/16 04:39 PT/INR, D-dimer PT 14.9 Seconds (9.4-12.1) H 12/15/16 05:10 - VTE Documentation of Mechanical Device: Graduated compression elastic hosiery Consult Discharge Plan - Plan Referrals: NO,PCP [Non-Partnered Physician] -
[2016-12-29] MEDS ORDERED: 0.9 % Sodium Chloride 1,000 ML IVC SCH (13:30)
[2016-12-30] MEDS: Ipratropium/Albuterol Neb 3 ML IH SCH ×4 (04:09→21:48)
[2016-12-30] MEDS: *HR* Heparin 5,000 UNIT/ML VIAL SQ SCH ×3 (04:55→20:02)
[2016-12-30 05:17] LABS: Basophils % 0.2 %; Hematocrit 37.8 % (35.3-44.9); Hemoglobin 12.6 g/dL (11.5-15.4); Immature Granulocytes % 1.3 % (0-4); Lymphocytes # 1.2 K/mcL (0.6-4.6); Lymphocytes % 5.8 %; Mean Corpuscular HGB Conc 33.3 g/dL (31.6-35.5); Mean Corpuscular Volume 95.9 fL (83.0-100.0); Mean Platelet Volume 11.4 fL (9.4-12.4); Monocytes # 0.9 K/mcL (0.0-1.3); Monocytes % 4.2 %; Neutrophils # 18.6 K/mcL (1.6-8.9); Platelet Count 454 K/mcL (140-400); Red Blood Count 3.94 M/mcL (3.82-4.97); Red Cell Distribution Width 14.7 % (11.5-14.5); Segmented Neutrophils % 88.5 %
[2016-12-30 05:30] LABS: BUN/Creatinine Ratio 60 (6-26); Blood Urea Nitrogen 36 mg/dL (7-20); Calcium 9.6 mg/dL (8.6-10.8); Carbon Dioxide 22 mEq/L (19-29); Chloride 107 mEq/L (98-109); Glucose 113 mg/dL (70-99); Osmolality,Calculated 301 (280-300); Potassium 3.8 mEq/L (3.5-4.5); Sodium 141 mEq/L (136-145); eGFR For African Americans > 60 (> 60); eGFR For Non-African Americans > 60 (> 60)
[2016-12-30] MEDS: Pantoprazole 40 MG VIAL IVPB SCH (08:31)
[2016-12-30] MEDS: Dexamethasone 4 MG/ML VIAL IVP SCH ×2 (08:31→20:02)
[2016-12-30] MEDS: Meropenem 1,000 MG in 0.9 % Sodium Chloride Mini Bag 100 ML IVPB SCH ×2 (08:32→15:45)
[2016-12-30] MEDS: Nystatin POWDER 30 GM BOTTLE TP SCH ×3 (08:48→20:03)
--- NOTE | 2016-12-30 09:44 | Palliative Progress Note ---
Date of Encounter: 12/30/16 Time of Encounter: 09:45 - Assessment and plan (1) Anoxic brain injury Current Visit: Yes Status: Acute Assessment and plan: Neurological status with little change. Remains in vegetative state (2) Aspiration pneumonia Current Visit: Yes Status: Suspected Assessment and plan: Continues treatment with IV antibiotics. She is unable to protect her airway, leaving her at high risk for recurrent aspiration. Qualifiers: Aspiration pneumonia type: unspecified Laterality: bilateral Lung location: unspecified part of lung Qualified Code(s): J69.0 - Pneumonitis due to inhalation of food and vomit (3) Acute and chronic respiratory failure Current Visit: No Status: Acute Qualifiers: Respiratory failure complication: hypoxia and hypercapnia Qualified Code(s) : J96.21 - Acute and chronic respiratory failure with hypoxia; J96.22 - Acute and chronic respiratory failure with hypercapnia (4) Cardiac arrest Current Visit: Yes Status: Acute (5) Counseling regarding advanced care planning and goals of care Current Visit: Yes Status: Acute Assessment and plan: Difficlut social situation. Awaiting mother's decision regarding PEG tube. [facility] may be willing to accept pt if she stabilizes to discharge. - Time Spent With Patient Total time spent is greater than 50% in coordination of care (as documented) at patient's floor/unit and/or counseling patient: 25 - 35 minutes - Subjective Interval history: Patient continues with low grade fever and tachycardia. RR 26/min. Cheeks flushed. Performed mouth care and attempted to suction pt - few clear secretions returned. TF infusing at 30ml/hr. - Constitutional Vitals: Abnormal lab results WBC 21.0 K/mcL (4.3-11.1) H 12/30/16 03:34 RDW 14.7 % (11.5-14.5) H 12/30/16 03:34 Plt Count 454 K/mcL (140-400) H 12/30/16 03:34 Metamyelocytes % 4.0 % (0) H 12/14/16 23:35 Promyelocytes % 1.0 % (0) H 12/14/16 00:25 Neutrophils # 18.6 K/mcL (1.6-8.9) H 12/30/16 03:34 Nucleated RBCs/100 WBC 0.2 /100 WBC (0) H 12/20/16 03:45 Hypersegmented Neuts Present (Not Present) A 12/26/16 03:21 Reactive Lymphocytes Present (Not Present) A 12/26/16 03:21 Clumped Platelets Few (Not Present) A 12/14/16 00:25 Large Platelets Present (Not Present) A 12/26/16 03:21 Polychromasia 1+ (Not Present) A 12/13/16 15:41 PT 14.9 Seconds (9.4-12.1) H 12/15/16 05:10 ABG pH 7.51 pH Units (7.32-7.45) H 12/26/16 04:39 ABG pCO2 33 mmHg (35-45) L 12/26/16 04:39 ABG pO2 111 mmHg (85-104) H 12/26/16 04:39 ABG Total CO2 27.3 mEq/L (20-26) H 12/26/16 04:39 ABG O2 Saturation 99 % (95-98) H 12/26/16 04:39 ABG Base Excess 3.6 mEq/L (-2.0 to 3.0) H 12/26/16 04:39 BUN 36 mg/dL (7-20) H 12/30/16 03:34 BUN/Creatinine Ratio 60 (6-26) H 12/30/16 03:34 Glucose 113 mg/dL (70-99) H 12/30/16 03:34 POC Glucose 130 (58-89) H 12/26/16 05:41 Calculated Osmolality 301 (280-300) H 12/30/16 03:34 AST 167 Units/L (5-34) H 12/14/16 05:44 ALT 60 Units/L (0-55) H 12/14/16 05:44 Troponin I 1.06 ng/mL (0-0.03) H* 12/14/16 05:44 B-Natriuretic Peptide 150 pg/mL (0-100) H 12/13/16 16:45 Serum Total Protein 5.5 g/dL (6.0-8.3) L 12/14/16 05:44 Albumin 2.3 g/dL (3.5-5.0) L 12/14/16 05:44 Albumin/Globulin Ratio 0.7 (1.1-2.2) L 12/14/16 05:44 Urine Color [place] (Yellow) A 12/13/16 15:06 Urine Clarity Turbid (Clear) A 12/13/16 15:06 Urine Protein 100 mg/dL (Neg-Trace) H 12/13/16 15:06 Urine Ketones 15 mg/dL (Negative) H 12/13/16 15:06 Urine Blood Large (Negative) H 12/13/16 15:06 Urine Bilirubin Moderate (Negative) H 12/13/16 15:06 Ur Leukocyte Esterase Large (Negative) H 12/13/16 15:06 Urine Microscopic RBC 50-100 per hpf (0-3) H 12/13/16 15:06 Urine Microscopic WBC 30-50 per hpf (0-3) H 12/13/16 15:06 Urine Bacteria Many per hpf (None-Few) H 12/13/16 15:06 Ur Culture Indicated? YES (NO) A 12/13/16 15:06 Stl Norovirus GI/GII PCR DETECTED (Not detect) A 12/13/16 21:44 Urine Opiates Screen Positive ng/mL (Mrgrtg=489) H 12/13/16 18:20 Acetaminophen < 1.0 mcg/mL (10-30) L 12/13/16 19:30 U Benzodiazepines Scrn Positive ng/mL (Xfseoc=405) H 12/13/16 18:20 U Marijuana (THC) Screen Positive ng/mL (Cutoff = 50) H 12/13/16 18:20 Staphylococcus sp PCR DETECTED (Not Detect) A 12/13/16 15:41 mecA-Methicil Res Gene DETECTED (Not Detect) A 12/13/16 15:41 General appearance: Present: no acute distress - Respiratory Additional comments: Rhonchi throughout lung domínguez bilaterally anteriorally - Cardiovascular Cardiovascular exam: Present: tachycardia - GI/Abdominal GI/Abdominal exam: Present: normal bowel sounds, soft Additional comments: NG with feedings infusing at 30ml/hr - Additional comments: Engel with clear yellow urine - Extremities Exam Additional comments: Bilateral foot drop - Neurological Exam Additional comments: Eyes are open. She raised her head off the pillow during suctioning. Does not respond to verbal stimuli, does not follow commands. - Skin Skin exam: Present: dry, pallor, warm Palliative Quality Palliative Quality: Screen for Code Status: NA (pt not responsive, awaiting family meeting), Screen for Goals of Care: NA, Screen for Pain: NA, If Pain Regimen Started, Initiate Bowel Regimen: NA, Screen for Nausea/Vomitting: NA Code Status: 12/13/16 18:17 Resuscitation Status: Active [RES] Routine Comment: Resuscitation Status: Full Code Resuscitation Status: Active [RES] Routine Comment: Resuscitation Status: [id number] - Labs CBC & Chem 7: 12/30/16 03:34 12/30/16 03:34 Labs: Laboratory Results - last 24 hr 12/30/16 12/30/16 03:34 03:34 WBC 21.0 H RBC 3.94 Hgb 12.6 Hct 37.8 MCV 95.9 MCH 32.0 MCHC 33.3 RDW 14.7 H Plt Count 454 H MPV 11.4 Immature Gran % 1.3 Seg Neutrophils % 88.5 Lymphocytes % 5.8 Monocytes % 4.2 Eosinophils % 0.0 Basophils % 0.2 Neutrophils # 18.6 H Lymphocytes # 1.2 Monocytes # 0.9 Eosinophils # 0.0 Basophils # 0.0 Sodium 141 Potassium 3.8 Chloride 107 Carbon Dioxide 22 BUN 36 H Creatinine 0.60 Est GFR ( Amer) > 60 Est GFR (Non-Af Amer) > 60 BUN/Creatinine Ratio 60 H Glucose 113 H Calculated Osmolality 301 H Calcium 9.6 - ABG Interpretation ABG results: ABG ABG pH 7.51 pH Units (7.32-7.45) H 12/26/16 04:39 ABG pCO2 33 mmHg (35-45) L 12/26/16 04:39 ABG pO2 111 mmHg (85-104) H 12/26/16 04:39 ABG O2 Saturation 99 % (95-98) H 12/26/16 04:39 PT/INR, D-dimer PT 14.9 Seconds (9.4-12.1) H 12/15/16 05:10 Consult Discharge Plan - Plan Referrals: NO,PCP [Non-Partnered Physician] -
[2016-12-30] MEDS: *HR* Morphine 2 MG/ML SYRINGE IVP PRN (12:01)
--- NOTE | 2016-12-30 13:33 | Event Note ---
Date of Encounter: 12/30/16 Time of Encounter: 13:20 Dr. Núñez with concerns that pt could not tolerate PEG placement with trach , as her resp status has worsened and she cannot protect her airway. Called pt Mother, SCOT Aguirre. Asked if she would be available to come to hospital to discuss with physician. Stated she had appt in [place] at 9am Saturday, but could come after that. Asked her to consider Dr. Núñez's recommendation. Timothy asked if I would call Sandor and explain, so she could discuss with him. I spoke with Sandor, he remains very upset over her care, and states that "your hospital killed my daughter", "she should have went to [place] and she wouldn' t be in this condition." I attempted to discuss her current situation, but he continued to cut me off, and blaming staff for poor care. I explained that Timothy wanted to discuss tracheostomy with him and would be calling him. He said "that takes a lot of nerve to call me on father's day". I explained that Timothy asked me to call him, so she could discuss the pt's care. He stated " I know that she will not make it, if the doctors wouldn't have lied to us and sent "rookies" to care for her, things wouldn't be this way". "[facility] is a joke and all you do is kill people to make a bed for the next patient". By the end of the call, he did thank me for listening and asked that I please make sure his daughter is cared for. He did state that he wanted her to be kept comfortable with Morphine, and he wants her to be fed. During this 30min telephone conversation, pt's respiratory status declined, and saturations are decreasing into the 80's. Heart rate 130-140. RR 32-34. I called Timothy back and told her change in patient's condition. She quickly got off phone stating she needed to call Sandor and would call me back. Dr. Núñez updated.
--- NOTE | 2016-12-30 16:34 | Internal Med Progress Note ---
Date of Encounter: 12/30/16 Time of Encounter: 15:00 - Assessment and plan (1) Aspiration pneumonia Current Visit: Yes Status: Suspected Assessment and plan: Suspected, secondary to substance abuse and having been found unresponsive at home. One out of 2 initial blood cultures grew staph epidermidis and repeat blood cultures show no growth. Sputum culture grows Escherichia coli. Continue IV meropenem to complete a 14 day course. Supportive care and supplemental oxygen. Continues to require 8-15 L/m oxygen via Venti mask. Qualifiers: Aspiration pneumonia type: unspecified Laterality: bilateral Lung location: unspecified part of lung Qualified Code(s): J69.0 - Pneumonitis due to inhalation of food and vomit (2) Urinary tract infection Current Visit: Yes Status: Acute Assessment and plan: Urine culture grows Escherichia coli. Continue IV meropenem as above. Qualifiers: Urinary tract infection type: site unspecified Hematuria presence: without hematuria Qualified Code(s): N39.0 - Urinary tract infection, site not specified (3) Sepsis Current Visit: Yes Status: Resolved Qualifiers: Sepsis type: Escherichia coli Qualified Code(s): A41.51 - Sepsis due to Escherichia coli [E. coli] (4) Cardiac arrest Current Visit: Yes Status: Acute (5) Anoxic brain injury Current Visit: Yes Status: Acute Assessment and plan: Suspected anoxic brain injury secondary to cardiac arrest. Patient has no purposeful movements, nonverbal with bilateral fixed and dilated pupils. GCS 4. Palliative care team is on board and patient does have a complex social situation. Medical power of lease analyst seems to be her mother. CODE STATUS is changed to DNR/DNI but no decision has been made regarding hospice/palliative care. Patient cannot have any oral intake with her encephalopathy, which is not expected to improve anytime soon. She would require PEG tube placement for continued nutrition. Surgery consult noted, patient's mother currently does not give consent for PEG placement and patient also continues to require 15 L/m oxygen via Ventimask and would not be able to tolerate sedation. 12/30- patient is noted to be in respiratory distress with tachypnea, sinus tachycardia, continues to require at least 15 L/m oxygen via Ventimask. Patient 's family initially requested for transfer to [facility] for higher level of care. However, currently requested to hold off on the transfer. Patient continues to have poor prognosis while the family is struggling to make a decision regarding her long-term care needs. As of today, patient's mother requests for palliative care medications along with tube feeds. (6) Norovirus Current Visit: Yes Status: Resolved (7) COPD (chronic obstructive pulmonary disease) Current Visit: Yes Status: Chronic Qualifiers: COPD type: unspecified COPD Qualified Code(s): J44.9 - Chronic obstructive pulmonary disease, unspecified (8) Glioblastoma multiforme of brain Current Visit: Yes Status: Chronic Assessment and plan: continue IV Decadron; (9) Fever Current Visit: Yes Status: Acute Assessment and plan: Likely central in origin, along with sinus tachycardia. Continue when necessary Tylenol and IV hydration. Less likely due to infection. F/up fungal cultures; case d/w , patient will benefit from Palliative/Hospice care at this point as she does not seem to be having meaningful recovery from vegetative state; Qualifiers: Fever type: due to other condition Qualified Code(s): R50.81 - Fever presenting with conditions classified elsewhere - Subjective Interval history: Lying in bed with eyes closed; noted to be having some respiratory distress, improved through the day. Requiring 8-15 L/m oxygen via Ventimask. Noted to be spiking fevers. - Constitutional Vitals: Temp Pulse Resp BP Pulse Ox 98.5 F 120 15 124/91 94 12/30/16 16:26 12/30/16 16:26 12/30/16 16:26 12/30/16 16:26 12/30/16 16:26 General appearance: Present: A&O X 0 (somnolent, comatose), mild distress ( Noted to be tachypneic and gasping) - Respiratory Respiratory exam: Present: CTAB (Coarse breath sounds bilateral anterolaterally) , tachypnea. Absent: accessory muscle use, rales, rhonchi, wheezes - Cardiovascular Cardiovascular exam: Present: RRR, +S1, +S2, tachycardia. Absent: diastolic murmur, gallop, rubs, systolic murmur - GI/Abdominal GI/Abdominal exam: Present: normal bowel sounds, soft, no peritoneal signs. Absent: distended, tenderness - Neurological Exam Neurological exam: Present: altered, no focal deficits (Extremities remaining extended position. GCS 4). Absent: pronater drift, facial droop, speech deficit Internal Medicine: Result - Labs CBC & Chem 7: 12/30/16 03:34 12/30/16 03:34 Labs: Short CBC 12/30/16 Range/Units 03:34 WBC 21.0 H (4.3-11.1) K/mcL Hgb 12.6 (11.5-15.4) g/dL Hct 37.8 (35.3-44.9) % Plt Count 454 H (140-400) K/mcL Neutrophils # 18.6 H (1.6-8.9) K/mcL BMP 12/30/16 03:34 Sodium 141 Potassium 3.8 Chloride 107 Carbon Dioxide 22 BUN 36 H Creatinine 0.60 Glucose 113 H Calcium 9.6 - ABG Interpretation ABG results: ABG ABG pH 7.51 pH Units (7.32-7.45) H 12/26/16 04:39 ABG pCO2 33 mmHg (35-45) L 12/26/16 04:39 ABG pO2 111 mmHg (85-104) H 12/26/16 04:39 ABG O2 Saturation 99 % (95-98) H 12/26/16 04:39 PT/INR, D-dimer PT 14.9 Seconds (9.4-12.1) H 12/15/16 05:10 - VTE Documentation of Mechanical Device: Intermittent pneumatic compression device Consult Discharge Plan - Plan Referrals: NO,PCP [Non-Partnered Physician] -
[2016-12-31] MEDS: Meropenem 1,000 MG in 0.9 % Sodium Chloride Mini Bag 100 ML IVPB SCH ×3 (00:03→15:02)
[2016-12-31] MEDS: *HR* Morphine 2 MG/ML SYRINGE IVP PRN ×4 (00:06→19:53)
[2016-12-31] MEDS: Ipratropium/Albuterol Neb 3 ML IH SCH ×4 (04:03→22:43)
[2016-12-31 05:56] LABS: Basophils % 0.2 %; Mean Corpuscular Hemoglobin 31.6 pg (28.0-33.3); Platelet Count 458 K/mcL (140-400); Segmented Neutrophils % 88.6 %
[2016-12-31 05:58] LABS: Basophils # 0.1 K/mcL (0.0-0.2); Hematocrit 39.2 % (35.3-44.9); Immature Granulocytes % 1.6 % (0-4); Lymphocytes # 1.6 K/mcL (0.6-4.6); Lymphocytes % 5.3 %; Mean Corpuscular HGB Conc 33.2 g/dL (31.6-35.5); Mean Corpuscular Volume 95.1 fL (83.0-100.0); Mean Platelet Volume 10.7 fL (9.4-12.4); Monocytes # 1.3 K/mcL (0.0-1.3); Monocytes % 4.3 %; Neutrophils # 27.2 K/mcL (1.6-8.9); Red Blood Count 4.12 M/mcL (3.82-4.97); Red Cell Distribution Width 14.7 % (11.5-14.5)
[2016-12-31] MEDS: *HR* Heparin 5,000 UNIT/ML VIAL SQ SCH ×3 (05:59→22:17)
[2016-12-31 06:14] LABS: BUN/Creatinine Ratio 59 (6-26); Blood Urea Nitrogen 36 mg/dL (7-20); Calcium 10.2 mg/dL (8.6-10.8); Carbon Dioxide 24 mEq/L (19-29); Chloride 109 mEq/L (98-109); Glucose 134 mg/dL (70-99); Osmolality,Calculated 306 (280-300); Potassium 3.9 mEq/L (3.5-4.5); Sodium 143 mEq/L (136-145); eGFR For African Americans > 60 (> 60); eGFR For Non-African Americans > 60 (> 60)
[2016-12-31 06:32] LABS: Platelet Estimate Normal (Normal)
[2016-12-31] MEDS: Pantoprazole 40 MG VIAL IVPB SCH (09:08)
[2016-12-31] MEDS: Dexamethasone 4 MG/ML VIAL IVP SCH ×2 (09:09→20:01)
[2016-12-31] MEDS: Nystatin POWDER 30 GM BOTTLE TP SCH ×3 (09:37→20:05)
--- NOTE | 2016-12-31 09:52 | Palliative Progress Note ---
Date of Encounter: 12/31/16 Time of Encounter: 09:49 - Assessment and plan (1) Anoxic brain injury Current Visit: Yes Status: Acute Assessment and plan: Neurologic status unchanged. Ms. Perez continues to be unresponsive. 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 (2) Acute and chronic respiratory failure Current Visit: No Status: Acute Assessment and plan: Supplemental oxygen via face mask at 10L/min. Oral suctioning PRN. Qualifiers: Respiratory failure complication: hypoxia and hypercapnia Qualified Code(s) : J96.21 - Acute and chronic respiratory failure with hypoxia; J96.22 - Acute and chronic respiratory failure with hypercapnia (3) Counseling regarding advanced care planning and goals of care Current Visit: Yes Status: Acute Assessment and plan: Events of the weekend noted. Plan for meeting at 2:30 on 01/01/17 with mother/ POA Timothy Lopez to discuss goals of care. (4) Aspiration pneumonia Current Visit: Yes Status: Suspected Assessment and plan: Discussed further risk of aspiration as the patient cannot control her oral secretions. She will require suctioning on a regular basis. Qualifiers: Aspiration pneumonia type: unspecified Laterality: bilateral Lung location: unspecified part of lung Qualified Code(s): J69.0 - Pneumonitis due to inhalation of food and vomit (5) Cardiac arrest Current Visit: Yes Status: Acute - Time Spent With Patient Total time spent is greater than 50% in coordination of care (as documented) at patient's floor/unit and/or counseling patient: - Subjective Interval history: 36 year old female, unresponsive, does not follow commands. - Constitutional Vitals: Abnormal lab results WBC 30.7 K/mcL (4.3-11.1) H* 12/31/16 05:45 RDW 14.7 % (11.5-14.5) H 12/31/16 05:45 Plt Count 458 K/mcL (140-400) H 12/31/16 05:45 Metamyelocytes % 4.0 % (0) H 12/14/16 23:35 Promyelocytes % 1.0 % (0) H 12/14/16 00:25 Neutrophils # 27.2 K/mcL (1.6-8.9) H 12/31/16 05:45 Nucleated RBCs/100 WBC 0.2 /100 WBC (0) H 12/20/16 03:45 Hypersegmented Neuts Present (Not Present) A 12/26/16 03:21 Reactive Lymphocytes Present (Not Present) A 12/26/16 03:21 Clumped Platelets Few (Not Present) A 12/14/16 00:25 Large Platelets Present (Not Present) A 12/26/16 03:21 Polychromasia 1+ (Not Present) A 12/13/16 15:41 PT 14.9 Seconds (9.4-12.1) H 12/15/16 05:10 ABG pH 7.51 pH Units (7.32-7.45) H 12/26/16 04:39 ABG pCO2 33 mmHg (35-45) L 12/26/16 04:39 ABG pO2 111 mmHg (85-104) H 12/26/16 04:39 ABG Total CO2 27.3 mEq/L (20-26) H 12/26/16 04:39 ABG O2 Saturation 99 % (95-98) H 12/26/16 04:39 ABG Base Excess 3.6 mEq/L (-2.0 to 3.0) H 12/26/16 04:39 BUN 36 mg/dL (7-20) H 12/31/16 05:45 BUN/Creatinine Ratio 59 (6-26) H 12/31/16 05:45 Glucose 134 mg/dL (70-99) H 12/31/16 05:45 POC Glucose 130 (58-89) H 12/26/16 05:41 Calculated Osmolality 306 (280-300) H 12/31/16 05:45 AST 167 Units/L (5-34) H 12/14/16 05:44 ALT 60 Units/L (0-55) H 12/14/16 05:44 Troponin I 1.06 ng/mL (0-0.03) H* 12/14/16 05:44 B-Natriuretic Peptide 150 pg/mL (0-100) H 12/13/16 16:45 Serum Total Protein 5.5 g/dL (6.0-8.3) L 12/14/16 05:44 Albumin 2.3 g/dL (3.5-5.0) L 12/14/16 05:44 Albumin/Globulin Ratio 0.7 (1.1-2.2) L 12/14/16 05:44 Urine Color [place] (Yellow) A 12/13/16 15:06 Urine Clarity Turbid (Clear) A 12/13/16 15:06 Urine Protein 100 mg/dL (Neg-Trace) H 12/13/16 15:06 Urine Ketones 15 mg/dL (Negative) H 12/13/16 15:06 Urine Blood Large (Negative) H 12/13/16 15:06 Urine Bilirubin Moderate (Negative) H 12/13/16 15:06 Ur Leukocyte Esterase Large (Negative) H 12/13/16 15:06 Urine Microscopic RBC 50-100 per hpf (0-3) H 12/13/16 15:06 Urine Microscopic WBC 30-50 per hpf (0-3) H 12/13/16 15:06 Urine Bacteria Many per hpf (None-Few) H 12/13/16 15:06 Ur Culture Indicated? YES (NO) A 12/13/16 15:06 Stl Norovirus GI/GII PCR DETECTED (Not detect) A 12/13/16 21:44 Urine Opiates Screen Positive ng/mL (Upoikr=547) H 12/13/16 18:20 Acetaminophen < 1.0 mcg/mL (10-30) L 12/13/16 19:30 U Benzodiazepines Scrn Positive ng/mL (Qphzum=443) H 12/13/16 18:20 U Marijuana (THC) Screen Positive ng/mL (Cutoff = 50) H 12/13/16 18:20 Staphylococcus sp PCR DETECTED (Not Detect) A 12/13/16 15:41 mecA-Methicil Res Gene DETECTED (Not Detect) A 12/13/16 15:41 General appearance: Present: no acute distress Exam: 36 [place] old female, unresponsive, eye movements non-purposeful, posturing noted - Eye Additional comments: Eyes do not track, PERRL, - ENT ENT exam: Present: mucous membranes dry - Respiratory Respiratory exam: Present: rhonchi. Absent: respiratory distress - Cardiovascular Cardiovascular exam: Present: +S1, +S2, tachycardia (rate 100-115) - GI/Abdominal GI/Abdominal exam: Present: normal bowel sounds, soft. Absent: distended - Extremities Exam Additional comments: bilateral foot drop, - Neurological Exam Neurological exam: Absent: alert Additional comments: unresponsive, non-verbal, does not follow commands. Eyes do not track. - Skin Skin exam: Present: erythema, rash (erythematous macular-papular rash noted to posterior trunk, extending up to the neck and down the posterior side of the legs. ) Additional comments: open wounds noted to bilateral buttocks. Palliative Quality Palliative Quality: Screen for Code Status: NA (pt not responsive, awaiting family meeting), Screen for Goals of Care: NA, Screen for Pain: NA, If Pain Regimen Started, Initiate Bowel Regimen: NA, Screen for Nausea/Vomitting: NA Code Status: 12/13/16 18:17 Resuscitation Status: Active [RES] Routine Comment: Resuscitation Status: Full Code Resuscitation Status: Active [RES] Routine Comment: Resuscitation Status: [id number] - Labs CBC & Chem 7: 12/31/16 05:45 12/31/16 05:45 Labs: Laboratory Results - last 24 hr 12/31/16 12/31/16 05:45 05:45 WBC 30.7 H* RBC 4.12 Hgb 13.0 Hct 39.2 MCV 95.1 MCH 31.6 MCHC 33.2 RDW 14.7 H Plt Count 458 H MPV 10.7 Immature Gran % 1.6 Seg Neutrophils % 88.6 Lymphocytes % 5.3 Monocytes % 4.3 Eosinophils % 0.0 Basophils % 0.2 Neutrophils # 27.2 H Lymphocytes # 1.6 Monocytes # 1.3 Eosinophils # 0.0 Basophils # 0.1 Platelet Estimate Normal Sodium 143 Potassium 3.9 Chloride 109 Carbon Dioxide 24 BUN 36 H Creatinine 0.61 Est GFR ( Amer) > 60 Est GFR (Non-Af Amer) > 60 BUN/Creatinine Ratio 59 H Glucose 134 H Calculated Osmolality 306 H Calcium 10.2 - ABG Interpretation ABG results: ABG ABG pH 7.51 pH Units (7.32-7.45) H 12/26/16 04:39 ABG pCO2 33 mmHg (35-45) L 12/26/16 04:39 ABG pO2 111 mmHg (85-104) H 12/26/16 04:39 ABG O2 Saturation 99 % (95-98) H 12/26/16 04:39 PT/INR, D-dimer PT 14.9 Seconds (9.4-12.1) H 06/03/17 05:10 Consult Discharge Plan - Plan Referrals: Cole Chapman Jr, MD [Primary Care Provider] - NO,PCP [Non-Partnered Physician] -
[2016-12-31] MEDS: *HR* LORazepam 2 MG/ML VIAL IVP PRN ×2 (11:58→22:16)
[2016-12-31] MEDS: Miconazole 2% cream 118 GM TUBE TP SCH ×2 (15:02→22:17)
--- NOTE | 2016-12-31 15:16 | Internal Med Progress Note ---
Date of Encounter: 12/31/16 Time of Encounter: 11:45 - Assessment and plan (1) Fungal dermatitis Current Visit: Yes Status: Acute Assessment and plan: Patient is noted to be having erythematous maculopapular rash involving patient' s neck, entire back, flexor medial surfaces of upper and lower extremities. She is also noted to have skin sloughing in skin folds including bilateral axillary, inguinal and sacral areas. Wound care consult. Will start IV Diflucan along with nystatin powder and local wound care with barrier cream. (2) Aspiration pneumonia Current Visit: Yes Status: Suspected Assessment and plan: Suspected, secondary to substance abuse and having been found unresponsive at home. One out of 2 initial blood cultures grew staph epidermidis and repeat blood cultures show no growth. Sputum culture grows Escherichia coli. Continue IV meropenem to complete a 14 day course. We will repeat blood cultures and chest x-ray as patient continues to have fever spikes, tachycardia along with worsening leukocytosis. Supportive care and supplemental oxygen. Continues to require 8-10 L/m oxygen via Venti mask. Discussed with palliative care, patient requires copious nursing case with frequent suctioning and clearing of nasal secretions as she has nasogastric tube in 1 nostril and the other is currently clogged with secretions. Qualifiers: Aspiration pneumonia type: unspecified Laterality: bilateral Lung location: unspecified part of lung Qualified Code(s): J69.0 - Pneumonitis due to inhalation of food and vomit (3) Urinary tract infection Current Visit: Yes Status: Acute Assessment and plan: Urine culture grows Escherichia coli. Continue IV meropenem as above. Repeat urinalysis. Qualifiers: Urinary tract infection type: site unspecified Hematuria presence: without hematuria Qualified Code(s): N39.0 - Urinary tract infection, site not specified (4) Sepsis Current Visit: Yes Status: Resolved Assessment and plan: Patient continues to have fever spikes, tachycardia and worsening leukocytosis. Unclear if this is due to sepsis or central in origin. Patient has been on broad-spectrum IV antibiotics since admission. Will repeat richard cultures and start IV Diflucan for fungal dermatitis. Fungal blood cultures since admission have been pending. Qualifiers: Sepsis type: Escherichia coli Qualified Code(s): A41.51 - Sepsis due to Escherichia coli [E. coli] (5) Cardiac arrest Current Visit: Yes Status: Acute (6) Anoxic brain injury Current Visit: Yes Status: Acute Assessment and plan: Suspected anoxic brain injury secondary to cardiac arrest. Patient has no purposeful movements, nonverbal. Palliative care team is on board and patient does have a complex social situation. Medical power of assistant prosecuting attorney seems to be her mother. CODE STATUS is changed to DNR/DNI but no decision has been made regarding hospice/palliative care. Patient cannot have any oral intake with her encephalopathy, which is not expected to improve anytime soon. She would require PEG tube placement for continued nutrition. Surgery consult noted, patient's mother currently does not give consent for PEG placement and patient also continues to require 8-10 L/m oxygen via Ventimask and would not be able to tolerate sedation. 12/30- patient is noted to be in respiratory distress with tachypnea, sinus tachycardia, continues to require at least 15 L/m oxygen via Ventimask. Patient 's family initially requested for transfer to [facility] for higher level of care. However, currently requested to hold off on the transfer. Patient continues to have poor prognosis while the family is struggling to make a decision regarding her long-term care needs. As of today, patient's mother requests for palliative care medications along with tube feeds. 12/31- patient is noted to be tachycardic and tachypneic with worsening leukocytosis. She responds to when necessary IV morphine. Continue supportive care and supplemental oxygen. Palliative care team on board, family meeting with patient's mother set up for 1430 tomorrow. (7) Norovirus Current Visit: Yes Status: Resolved (8) COPD (chronic obstructive pulmonary disease) Current Visit: Yes Status: Chronic Qualifiers: COPD type: unspecified COPD Qualified Code(s): J44.9 - Chronic obstructive pulmonary disease, unspecified (9) Glioblastoma multiforme of brain Current Visit: Yes Status: Chronic (10) Fever Current Visit: Yes Status: Acute Qualifiers: Fever type: due to other condition Qualified Code(s): R50.81 - Fever presenting with conditions classified elsewhere - Subjective Interval history: Lying in bed with eyes closed; occasional spontaneous eye opening, nonverbal. Noted to have developed diffuse erythematous rash over her back and neck and extremities. Requiring 8-10 L/m oxygen via Ventimask. - Constitutional Vitals: Temp Pulse Resp BP Pulse Ox 99.1 F 120 20 134/87 92 12/31/16 10:42 12/31/16 10:42 12/31/16 10:42 12/31/16 10:42 12/31/16 10:42 General appearance: Present: A&O X 0 (somnolent, comatose) - Eye Eye exam: Present: PERRL - Respiratory Respiratory exam: Present: CTAB (Coarse breath sounds bilaterally anterolaterally). Absent: accessory muscle use, rales, rhonchi, wheezes - Cardiovascular Cardiovascular exam: Present: RRR, +S1, +S2, tachycardia. Absent: diastolic murmur, gallop, rubs, systolic murmur - GI/Abdominal GI/Abdominal exam: Present: normal bowel sounds, soft, no peritoneal signs. Absent: distended, tenderness - Neurological Exam Neurological exam: Present: altered (GCS noted to be 8 today), no focal deficits (Lower extremities continue to be spastic extended position.). Absent : pronater drift, facial droop, speech deficit Internal Medicine: Result - Labs CBC & Chem 7: 12/31/16 05:45 12/31/16 05:45 Labs: Short CBC 12/31/16 Range/Units 05:45 WBC 30.7 H* (4.3-11.1) K/mcL Hgb 13.0 (11.5-15.4) g/dL Hct 39.2 (35.3-44.9) % Plt Count 458 H (140-400) K/mcL Neutrophils # 27.2 H (1.6-8.9) K/mcL BMP 12/31/16 05:45 Sodium 143 Potassium 3.9 Chloride 109 Carbon Dioxide 24 BUN 36 H Creatinine 0.61 Glucose 134 H Calcium 10.2 - ABG Interpretation ABG results: ABG ABG pH 7.51 pH Units (7.32-7.45) H 12/26/16 04:39 ABG pCO2 33 mmHg (35-45) L 12/26/16 04:39 ABG pO2 111 mmHg (85-104) H 12/26/16 04:39 ABG O2 Saturation 99 % (95-98) H 12/26/16 04:39 PT/INR, D-dimer PT 14.9 Seconds (9.4-12.1) H 12/15/16 05:10 - VTE Documentation of Mechanical Device: Intermittent pneumatic compression device Consult Discharge Plan - Plan Referrals: Cole Chapman Jr, MD [Primary Care Provider] - NO,PCP [Non-Partnered Physician] -
[2016-12-31] MEDS: Fluconazole 200 MG/100 ML 200 MG/100 ML BAG IVPB SCH (16:16)
[2016-12-31 22:52] LABS: Bilirubin,Urine Negative (Negative); Blood,Urine Negative (Negative); Clarity,Urine Cloudy (Clear); Color,Urine Yellow (Yellow); Glucose,Urine (UA) Normal (Normal); Ketones,Urine Negative (Negative); Leukocyte Esterase,Urine Trace (Negative); Nitrite,Urine Negative (Negative); PH,Urine 6.5 pH Units (5.0-8.0); Protein,Urine 30 mg/dL (Neg-Trace); Specific Gravity,Urine 1.029 (1.010-1.025); Urobilinogen,Urine Normal (Normal)
[2016-12-31 22:54] LABS: Bacteria,Urine None Seen per hpf (None-Few); Hyaline Casts,Urine None Seen per lpf (None-Few); Squamous Epithelial Cell,Urine Many per lpf (None-Few); WBC,Urine 15-30 per hpf (0-3)
[2016-12-31 23:11] LABS: Yeast,Urine Moderate per hpf (None Seen)
[2017-01-01] MEDS: *HR* Morphine 2 MG/ML SYRINGE IVP PRN ×4 (00:31→14:55)
[2017-01-01] MEDS: Ipratropium/Albuterol Neb 3 ML IH SCH ×4 (04:54→22:12)
[2017-01-01] MEDS: *HR* Heparin 5,000 UNIT/ML VIAL SQ SCH ×3 (05:26→22:58)
[2017-01-01 06:13] LABS: Hemoglobin 12.3 g/dL (11.5-15.4); Monocytes % 3.2 %
[2017-01-01 06:15] LABS: Basophils % 0.1 %; Hematocrit 37.1 % (35.3-44.9); Immature Granulocytes % 1.9 % (0-4); Lymphocytes # 1.6 K/mcL (0.6-4.6); Lymphocytes % 4.3 %; Mean Corpuscular HGB Conc 33.2 g/dL (31.6-35.5); Mean Corpuscular Hemoglobin 31.8 pg (28.0-33.3); Mean Corpuscular Volume 95.9 fL (83.0-100.0); Mean Platelet Volume 11.2 fL (9.4-12.4); Monocytes # 1.2 K/mcL (0.0-1.3); Neutrophils # 33.7 K/mcL (1.6-8.9); Platelet Count 423 K/mcL (140-400); Red Blood Count 3.87 M/mcL (3.82-4.97); Red Cell Distribution Width 14.7 % (11.5-14.5); Segmented Neutrophils % 90.5 %
[2017-01-01 06:35] LABS: BUN/Creatinine Ratio 57 (6-26); Blood Urea Nitrogen 36 mg/dL (7-20); Carbon Dioxide 25 mEq/L (19-29); Chloride 106 mEq/L (98-109); Glucose 110 mg/dL (70-99); Osmolality,Calculated 303 (280-300); Potassium 4.2 mEq/L (3.5-4.5); Sodium 142 mEq/L (136-145); eGFR For African Americans > 60 (> 60); eGFR For Non-African Americans > 60 (> 60)
[2017-01-01 06:59] LABS: Platelet Estimate Normal (Normal)
--- NOTE | 2017-01-01 09:09 | Palliative Progress Note ---
Date of Encounter: 01/01/17 Time of Encounter: 09:07 - Assessment and plan (1) Anoxic brain injury Current Visit: Yes Status: Acute Assessment and plan: Neurologic status unchanged. Ms. Perez continues to be unresponsive. 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 (2) Acute and chronic respiratory failure Current Visit: Yes Status: Acute Assessment and plan: Supplemental oxygen via face mask at 10L/min. Oral suctioning PRN. Artificial nutrition on hold due to concerns for aspiration. Ms. Perez had not had a documented BM in 5 days. Will give suppository and reassess later this afternoon. Qualifiers: Respiratory failure complication: hypoxia and hypercapnia Qualified Code(s) : J96.21 - Acute and chronic respiratory failure with hypoxia; J96.22 - Acute and chronic respiratory failure with hypercapnia (3) Counseling regarding advanced care planning and goals of care Current Visit: Yes Status: Acute Assessment and plan: Events of the weekend noted. Plan for meeting at 2:30 on 01/01/17 with mother/ SCOT Lopez to discuss goals of care. Update: Meting with mother/Braden Lopez, with support person-Clif[place], regarding goals of care. Discussed events leading up to today including (but not limited to) ICU stay, prior goals of care conversations, lab results, current plan of care and challenges. Discussed Ms. Perez's aspiration risk, and her risk even prior to this hospitalization (Ms. Perez removed her previously existing PEG tube on her own), and Ms. Perez's non-compliance with recommended NPO status prior to this hospitalization. Discussed the placement of a permanent feeding tube vs. comfort care. Regardless of permanent feeding tube placement, Ms. Perez will still be at high risk for aspiration. Discussed the care of her rash and skin care. Reviewed non-purposeful movements and findings consistent with a severe anoxic brain injury. Plan: Ms. Timothy Lopez would like to discuss decisions with Ms. Perez's father and grandmother prior to a decision. She was given hospital contact information and asked to return call today if possible. Participants: Primary RN, Tessa Lombardi-social service worker, Efraín PAIZ, Ayesha Gomez , PRODUCE DEPARTMENT SUPERVISOR. (4) Aspiration pneumonia Current Visit: Yes Status: Suspected Assessment and plan: Discussed further risk of aspiration as the patient cannot control her oral secretions. She will require suctioning on a regular basis. NG tube placement verified. Reviewed aspiration risk as above. Tube feedings on hold due to suspected aspiration. Ms. Perez does not have a documented BM in 5 days. Bisacodyl rectal suppository given with successful BM. Will re-evaluate tube feeding later today. Qualifiers: Aspiration pneumonia type: unspecified Laterality: bilateral Lung location: unspecified part of lung Qualified Code(s): J69.0 - Pneumonitis due to inhalation of food and vomit (5) Cardiac arrest Current Visit: Yes Status: Acute Assessment and plan: Timothy Lopez (KALPESHA) continues to support current code status as of conversation at 14:55 - Time Spent With Patient Total time spent is greater than 50% in coordination of care (as documented) at patient's floor/unit and/or counseling patient: - Subjective Interval history: 36 year old female, unresponsive, does not follow commands. Withdraws to pain - Constitutional Vitals: Abnormal lab results WBC 37.2 K/mcL (4.3-11.1) H* 01/01/17 05:45 RDW 14.7 % (11.5-14.5) H 01/01/17 05:45 Plt Count 423 K/mcL (140-400) H 01/01/17 05:45 Metamyelocytes % 4.0 % (0) H 12/14/16 23:35 Promyelocytes % 1.0 % (0) H 12/14/16 00:25 Neutrophils # 33.7 K/mcL (1.6-8.9) H 01/01/17 05:45 Nucleated RBCs/100 WBC 0.2 /100 WBC (0) H 12/20/16 03:45 Hypersegmented Neuts Present (Not Present) A 12/26/16 03:21 Reactive Lymphocytes Present (Not Present) A 12/26/16 03:21 Clumped Platelets Few (Not Present) A 12/14/16 00:25 Large Platelets Present (Not Present) A 12/26/16 03:21 Polychromasia 1+ (Not Present) A 12/13/16 15:41 PT 14.9 Seconds (9.4-12.1) H 12/15/16 05:10 ABG pH 7.51 pH Units (7.32-7.45) H 12/26/16 04:39 ABG pCO2 33 mmHg (35-45) L 12/26/16 04:39 ABG pO2 111 mmHg (85-104) H 12/26/16 04:39 ABG Total CO2 27.3 mEq/L (20-26) H 12/26/16 04:39 ABG O2 Saturation 99 % (95-98) H 12/26/16 04:39 ABG Base Excess 3.6 mEq/L (-2.0 to 3.0) H 12/26/16 04:39 BUN 36 mg/dL (7-20) H 01/01/17 05:45 BUN/Creatinine Ratio 57 (6-26) H 01/01/17 05:45 Glucose 110 mg/dL (70-99) H 01/01/17 05:45 POC Glucose 117 (58-89) H 01/01/17 05:45 Calculated Osmolality 303 (280-300) H 01/01/17 05:45 AST 167 Units/L (5-34) H 12/14/16 05:44 ALT 60 Units/L (0-55) H 12/14/16 05:44 Troponin I 1.06 ng/mL (0-0.03) H* 12/14/16 05:44 B-Natriuretic Peptide 150 pg/mL (0-100) H 12/13/16 16:45 Serum Total Protein 5.5 g/dL (6.0-8.3) L 12/14/16 05:44 Albumin 2.3 g/dL (3.5-5.0) L 12/14/16 05:44 Albumin/Globulin Ratio 0.7 (1.1-2.2) L 12/14/16 05:44 Urine Clarity Cloudy (Clear) A 12/31/16 22:44 Ur Specific [place] 1.029 (1.010-1.025) H 12/31/16 22:44 Urine Protein 30 mg/dL (Neg-Trace) H 12/31/16 22:44 Ur Leukocyte Esterase Trace (Negative) H 12/31/16 22:44 Urine Microscopic WBC 15-30 per hpf (0-3) H 12/31/16 22:44 Ur Squamous Epith Cells Many per lpf (None-Few) H 12/31/16 22:44 Urine Yeast Moderate per hpf (None Seen) H 12/31/16 22:44 Ur Culture Indicated? YES (NO) A 12/31/16 22:44 Stl Norovirus GI/GII PCR DETECTED (Not detect) A 12/13/16 21:44 Urine Opiates Screen Positive ng/mL (Cpyrtj=664) H 12/13/16 18:20 Acetaminophen < 1.0 mcg/mL (10-30) L 12/13/16 19:30 U Benzodiazepines Scrn Positive ng/mL (Iwxnrd=465) H 12/13/16 18:20 U Marijuana (THC) Screen Positive ng/mL (Cutoff = 50) H 12/13/16 18:20 Staphylococcus sp PCR DETECTED (Not Detect) A 12/13/16 15:41 mecA-Methicil Res Gene DETECTED (Not Detect) A 12/13/16 15:41 Exam: 36 year old female, unresponsive, movements non-purposeful, posturing noted - Eye Eye exam: Present: PERRL Additional comments: eyes do not track - Respiratory Respiratory exam: Present: rhonchi, tachypnea Additional comments: oxygen via face mask with 10 L/min. - GI/Abdominal GI/Abdominal exam: Present: normal bowel sounds, soft. Absent: distended - Extremities Exam Extremities exam: Absent: pedal edema Additional comments: bilateral foot drop - Neurological Exam Additional comments: eyes open, movements non-purposeful, bilateral foot drop, posturing - Psychiatric Psychiatric exam: Absent: agitated, anxious - Skin Skin exam: Present: dry, warm Palliative Quality Palliative Quality: Screen for Code Status: NA (pt not responsive, awaiting family meeting), Screen for Goals of Care: NA, Screen for Pain: NA, If Pain Regimen Started, Initiate Bowel Regimen: NA, Screen for Nausea/Vomitting: NA Code Status: 12/13/16 18:17 Resuscitation Status: Active [RES] Routine Comment: Resuscitation Status: Full Code Resuscitation Status: Active [RES] Routine Comment: Resuscitation Status: [id number] - Labs CBC & Chem 7: 01/01/17 05:45 01/01/17 05:45 Labs: Laboratory Results - last 24 hr 12/31/16 12/31/16 01/01/17 16:01 22:44 05:45 WBC 37.2 H* RBC 3.87 Hgb 12.3 Hct 37.1 MCV 95.9 MCH 31.8 MCHC 33.2 RDW 14.7 H Plt Count 423 H MPV 11.2 Immature Gran % 1.9 Seg Neutrophils % 90.5 Lymphocytes % 4.3 Monocytes % 3.2 Eosinophils % 0.0 Basophils % 0.1 Neutrophils # 33.7 H Lymphocytes # 1.6 Monocytes # 1.2 Eosinophils # 0.0 Basophils # 0.0 Platelet Estimate Normal Sodium Potassium Chloride Carbon Dioxide BUN Creatinine Est GFR ( Amer) Est GFR (Non-Af Amer) BUN/Creatinine Ratio Glucose POC Glucose 126 H Calculated Osmolality Calcium Urine Color Yellow Urine Clarity Cloudy A Urine pH 6.5 Ur Specific [place] 1.029 H Urine Protein 30 H Urine Glucose (UA) Normal Urine Ketones Negative Urine Blood Negative Urine Nitrite Negative Urine Bilirubin Negative Urine Urobilinogen Normal Ur Leukocyte Esterase Trace H Urine Microscopic RBC Test Not Performed Urine Microscopic WBC 15-30 H Ur Squamous Epith Cells Many H Urine Bacteria None Seen Hyaline Casts None Seen Urine Yeast Moderate H Ur Culture Indicated? YES A 01/01/17 01/01/17 05:45 05:45 WBC RBC Hgb Hct MCV MCH MCHC RDW Plt Count MPV Immature Gran % Seg Neutrophils % Lymphocytes % Monocytes % Eosinophils % Basophils % Neutrophils # Lymphocytes # Monocytes # Eosinophils # Basophils # Platelet Estimate Sodium 142 Potassium 4.2 Chloride 106 Carbon Dioxide 25 BUN 36 H Creatinine 0.63 Est GFR ( Amer) > 60 Est GFR (Non-Af Amer) > 60 BUN/Creatinine Ratio 57 H Glucose 110 H POC Glucose 117 H Calculated Osmolality 303 H Calcium 10.0 Urine Color Urine Clarity Urine pH Ur Specific [place] Urine Protein Urine Glucose (UA) Urine Ketones Urine Blood Urine Nitrite Urine Bilirubin Urine Urobilinogen Ur Leukocyte Esterase Urine Microscopic RBC Urine Microscopic WBC Ur Squamous Epith Cells Urine Bacteria Hyaline Casts Urine Yeast Ur Culture Indicated? - Impressions Impressions Chest X-Ray 12/31/16 10:05 IMPRESSION: Minimal left basilar atelectasis. D/ / 12/31/2016 15:57:47 Devin Andrew MD / [email or web address] Interpreting Provider: Devin Andrew MD - ABG Interpretation ABG results: ABG ABG pH 7.51 pH Units (7.32-7.45) H 12/26/16 04:39 ABG pCO2 33 mmHg (35-45) L 12/26/16 04:39 ABG pO2 111 mmHg (85-104) H 12/26/16 04:39 ABG O2 Saturation 99 % (95-98) H 12/26/16 04:39 PT/INR, D-dimer PT 14.9 Seconds (9.4-12.1) H 12/15/16 05:10 Consult Discharge Plan - Plan Referrals: Cole Chapman Jr, MD [Primary Care Provider] - NO,PCP [Non-Partnered Physician] -
[2017-01-01] MEDS: Bisacodyl 10 MG RECTAL SUPPOSITORY RC SCH (09:33)
[2017-01-01] MEDS: Dexamethasone 4 MG/ML VIAL IVP SCH ×2 (09:33→22:58)
[2017-01-01] MEDS: Miconazole 2% cream 118 GM TUBE TP SCH ×2 (09:48→23:00)
[2017-01-01] MEDS: Nystatin POWDER 30 GM BOTTLE TP SCH ×3 (09:48→23:00)
[2017-01-01] MEDS: Pantoprazole 40 MG VIAL IVP SCH (09:55)
[2017-01-01] MEDS: Meropenem 1,000 MG in 0.9 % Sodium Chloride Mini Bag 100 ML IVPB SCH ×2 (11:02→16:46)
[2017-01-01] MEDS: *HR* LORazepam 2 MG/ML VIAL IVP PRN (13:28)
[2017-01-01] MEDS: Fluconazole 200 MG/100 ML 200 MG/100 ML BAG IVPB SCH (15:20)
[2017-01-01] MEDS ORDERED: Meropenem 1,000 MG in 0.9 % Sodium Chloride Mini Bag 100 ML IVPB SCH (16:00)
--- NOTE | 2017-01-01 19:01 | Internal Med Progress Note ---
Date of Encounter: 01/01/17 Time of Encounter: 09:00 - Assessment and plan (1) Aspiration pneumonia Current Visit: Yes Status: Suspected Assessment and plan: Suspected, secondary to substance abuse and having been found unresponsive at home. One out of 2 initial blood cultures grew staph epidermidis and repeat blood cultures show no growth. Sputum culture grows Escherichia coli. Continue IV meropenem to complete a 14 day course. We will repeat blood cultures and chest x-ray as patient continues to have fever spikes, tachycardia along with worsening leukocytosis. Supportive care and supplemental oxygen. Continues to require 8-10 L/m oxygen via Venti mask. Discussed with palliative care, patient requires copious nursing case with frequent suctioning and clearing of nasal secretions as she has nasogastric tube in 1 nostril and the other is currently clogged with secretions. - Patient is at high risk of recurrent aspiration because of nonresponsive and the tube feeding. - WBC elevated although high on the long-term antibiotic use, prognosis is poor. - Continue supportive treatment. Qualifiers: Aspiration pneumonia type: unspecified Laterality: bilateral Lung location: unspecified part of lung Qualified Code(s): J69.0 - Pneumonitis due to inhalation of food and vomit (2) Acute and chronic respiratory failure Current Visit: Yes Status: Acute Assessment and plan: Due to aspiration pneumonia. Will continue supportive treatment. Continuous frequent suction to remove the secretion. Qualifiers: Respiratory failure complication: hypoxia and hypercapnia Qualified Code(s) : J96.21 - Acute and chronic respiratory failure with hypoxia; J96.22 - Acute and chronic respiratory failure with hypercapnia (3) DVT prophylaxis Current Visit: No Status: Acute Assessment and plan: Heparin subcutaneously (4) Cardiac arrest Current Visit: Yes Status: Acute Assessment and plan: S/P ACLS, still nonresponsive, cont supportive treatment (5) Anoxic brain injury Current Visit: Yes Status: Acute Assessment and plan: Suspected anoxic brain injury secondary to cardiac arrest. Patient has no purposeful movements, nonverbal. Palliative care team is on board and patient does have a complex social situation. Medical power of finish production manager seems to be her mother. CODE STATUS is changed to DNR/DNI but no decision has been made regarding hospice/palliative care. Patient cannot have any oral intake with her encephalopathy, which is not expected to improve anytime soon. She would require PEG tube placement for continued nutrition. Surgery consult noted, patient's mother currently does not give consent for PEG placement and patient also continues to require 8-10 L/m oxygen via Ventimask and would not be able to tolerate sedation. 12/30- patient is noted to be in respiratory distress with tachypnea, sinus tachycardia, continues to require at least 15 L/m oxygen via Ventimask. Patient 's family initially requested for transfer to [facility] for higher level of care. However, currently requested to hold off on the transfer. Patient continues to have poor prognosis while the family is struggling to make a decision regarding her long-term care needs. As of today, patient's mother requests for palliative care medications along with tube feeds. 12/31- patient is noted to be tachycardic and tachypneic with worsening leukocytosis. She responds to when necessary IV morphine. Continue supportive care and supplemental oxygen. Palliative care team on board, family meeting with patient's mother set up for 1430 tomorrow. 01/01 - Family meeting hold with pt's mother, no conclusion yet. Pt's mother will talk with pt's father and other family member and give further decision. Continue current treatment at this point. (6) Fungal dermatitis Current Visit: Yes Status: Acute Assessment and plan: Patient is noted to be having erythematous maculopapular rash involving patient' s neck, entire back, flexor medial surfaces of upper and lower extremities. She is also noted to have skin sloughing in skin folds including bilateral axillary, inguinal and sacral areas. Wound care consult. Will start IV Diflucan along with nystatin powder and local wound care with barrier cream. (7) Glioblastoma Current Visit: Yes Status: Acute Assessment and plan: Hx of glioblastoma. - Time Spent With Patient 25 - 35 minutes - Subjective Interval history: Patient is a 36-year-old female admitted for aspiration pneumonia and cardiac arrest in emergency room. Her past medical history is significant for pontine glioma status post radiation therapy, cigarette smoking, aspiration pneumonia, dysphagia, COPD on 4 L home oxygen, multiple drug abuse. Patient was treated in ICU initially but mental status not improve although aggressive treatment. Family agreed to change code status to DNR/DNI, patient was extubated and moved to regular floor. Patient was seen and examined, nonresponsive, looks in acute respiratory distress. On exam, bilateral lung diffused rhonchi. Pt needs high-level oxygen to maintain oxygen saturation. Will continue meropenem IV for aspiration pneumonia. Patient has high risk for recurrent aspiration. Prognosis is poor. Patient's mother will further discuss with other family member to determine that goal of next step treatment. - Constitutional Vitals: Temp Pulse Resp BP Pulse Ox 98.7 F 114 21 126/89 97 01/01/17 17:27 01/01/17 17:27 01/01/17 17:27 01/01/17 17:27 01/01/17 17:27 General appearance: Present: A&O X 0 (somnolent, comatose) - Head Head exam: Present: atraumatic, normocephalic - Eye Eye exam: Present: PERRL, conjuntiva pink, sclera anicteric Pupils: Present: PERRL - Neck Neck exam general surgery: Present: supple, trachea midline. Absent: lymphadenopathy - Respiratory Respiratory exam: Present: CTAB, respiratory distress, rhonchi (Diffused rhonchi bilaterally). Absent: accessory muscle use, rales, wheezes - Cardiovascular Cardiovascular exam: Present: RRR, +S1, +S2. Absent: diastolic murmur, gallop, rubs, systolic murmur - GI/Abdominal GI/Abdominal exam: Present: normal bowel sounds, soft, no peritoneal signs. Absent: distended, tenderness - Extremities Exam Extremities exam: Present: warm, radial pulses palpable and symetrical. Absent : calf tenderness, cyanotic, pedal edema - Neurological Exam Neurological exam: Present: CN II-XII intact, oriented X3, no focal deficits. Absent: pronater drift, facial droop, speech deficit - Skin Skin exam: Present: dry, intact Internal Medicine: Result - Labs CBC & Chem 7: 01/01/17 05:45 01/01/17 05:45 Labs: Short CBC 01/01/17 Range/Units 05:45 WBC 37.2 H* (4.3-11.1) K/mcL Hgb 12.3 (11.5-15.4) g/dL Hct 37.1 (35.3-44.9) % Plt Count 423 H (140-400) K/mcL Neutrophils # 33.7 H (1.6-8.9) K/mcL BMP 01/01/17 05:45 Sodium 142 Potassium 4.2 Chloride 106 Carbon Dioxide 25 BUN 36 H Creatinine 0.63 Glucose 110 H Calcium 10.0 Urine 12/31/16 Range/Units 22:44 Urine Color Yellow (Yellow) Urine Clarity Cloudy A (Clear) Urine pH 6.5 (5.0-8.0) pH Units Ur Specific [place] 1.029 H (1.010-1.025) Urine Protein 30 H (Neg-Trace) mg/dL Urine Glucose (UA) Normal (Normal) mg/dL - ABG Interpretation ABG results: ABG ABG pH 7.51 pH Units (7.32-7.45) H 12/26/16 04:39 ABG pCO2 33 mmHg (35-45) L 12/26/16 04:39 ABG pO2 111 mmHg (85-104) H 12/26/16 04:39 ABG O2 Saturation 99 % (95-98) H 12/26/16 04:39 PT/INR, D-dimer PT 14.9 Seconds (9.4-12.1) H 12/15/16 05:10 - VTE Documentation of Mechanical Device: Intermittent pneumatic compression device Consult Discharge Plan - Plan Referrals: Cole Chapman Jr, MD [Primary Care Provider] - NO,PCP [Non-Partnered Physician] -
[2017-01-02] MEDS: Ipratropium/Albuterol Neb 3 ML IH SCH ×4 (03:51→21:25)
[2017-01-02] MEDS: Meropenem 1,000 MG in 0.9 % Sodium Chloride Mini Bag 100 ML IVPB SCH ×3 (04:00→16:25)
[2017-01-02] MEDS: *HR* Heparin 5,000 UNIT/ML VIAL SQ SCH ×3 (05:34→22:33)
[2017-01-02 06:22] LABS: Immature Granulocytes % 2.2 % (0-4); Mean Corpuscular HGB Conc 33.2 g/dL (31.6-35.5); Mean Corpuscular Hemoglobin 31.7 pg (28.0-33.3); Red Cell Distribution Width 14.6 % (11.5-14.5)
[2017-01-02 06:23] LABS: Basophils % 0.1 %; Hematocrit 38.2 % (35.3-44.9); Hemoglobin 12.7 g/dL (11.5-15.4); Lymphocytes # 1.4 K/mcL (0.6-4.6); Lymphocytes % 3.9 %; Mean Corpuscular Volume 95.3 fL (83.0-100.0); Mean Platelet Volume 10.7 fL (9.4-12.4); Monocytes % 2.4 %; Nucleated Red Blood Cells 0.1 /100 WBC (0); Platelet Count 390 K/mcL (140-400); Red Blood Count 4.01 M/mcL (3.82-4.97); Segmented Neutrophils % 91.4 %
[2017-01-02 06:31] LABS: Monocytes # 0.8 K/mcL (0.0-1.3); Neutrophils # 32.2 K/mcL (1.6-8.9)
[2017-01-02 06:35] LABS: BUN/Creatinine Ratio 54 (6-26); Blood Urea Nitrogen 38 mg/dL (7-20); Calcium 10.8 mg/dL (8.6-10.8); Carbon Dioxide 26 mEq/L (19-29); Chloride 105 mEq/L (98-109); Glucose 105 mg/dL (70-99); Osmolality,Calculated 301 (280-300); Sodium 141 mEq/L (136-145); eGFR For African Americans > 60 (> 60); eGFR For Non-African Americans > 60 (> 60)
[2017-01-02 08:27] LABS: Hypersegmented Neutrophils Present (Not Present); Platelet Estimate Normal (Normal); Polychromasia 1+ (Not Present)
--- NOTE | 2017-01-02 09:46 | Palliative Progress Note ---
Date of Encounter: 01/02/17 Time of Encounter: 09:30 - Assessment and plan (1) Anoxic brain injury Current Visit: Yes Status: Acute Assessment and plan: No change in neuro status. Remains with no purposeful movement or communication. (2) Aspiration pneumonia Current Visit: Yes Status: Suspected Qualifiers: Aspiration pneumonia type: unspecified Laterality: bilateral Lung location: unspecified part of lung Qualified Code(s): J69.0 - Pneumonitis due to inhalation of food and vomit (3) Acute and chronic respiratory failure Current Visit: Yes Status: Acute Assessment and plan: Remains on 10-11 Oxygen via mask. Continue with aerosol treatments and antibiotic therapy. Antifungal has been added as well. Qualifiers: Respiratory failure complication: hypoxia and hypercapnia Qualified Code(s) : J96.21 - Acute and chronic respiratory failure with hypoxia; J96.22 - Acute and chronic respiratory failure with hypercapnia (4) Cardiac arrest Current Visit: Yes Status: Acute (5) Counseling regarding advanced care planning and goals of care Current Visit: Yes Status: Acute Assessment and plan: Still awaiting call from mother for decision on how she would like to proceed with pts care. D/W Dr. Melgar and primary nurse Olga. - Time Spent With Patient Total time spent is greater than 50% in coordination of care (as documented) at patient's floor/unit and/or counseling patient: 25 - 35 minutes - Subjective Interval history: Patient rash appears to be extending - now over bilateral anterior lower legs, hands, and lower abdomen. Remains on ventimask at 10L/min. Tube feeding remains off at this time. No visitors present. - Constitutional Vitals: Abnormal lab results WBC 35.2 K/mcL (4.3-11.1) H* 01/02/17 06:12 RDW 14.6 % (11.5-14.5) H 01/02/17 06:12 Metamyelocytes % 4.0 % (0) H 12/14/16 23:35 Promyelocytes % 1.0 % (0) H 12/14/16 00:25 Neutrophils # 32.2 K/mcL (1.6-8.9) H 01/02/17 06:12 Nucleated RBCs/100 WBC 0.1 /100 WBC (0) H 01/02/17 06:12 Hypersegmented Neuts Present (Not Present) A 01/02/17 06:12 Reactive Lymphocytes Present (Not Present) A 12/26/16 03:21 Clumped Platelets Few (Not Present) A 12/14/16 00:25 Large Platelets Present (Not Present) A 12/26/16 03:21 Polychromasia 1+ (Not Present) A 01/02/17 06:12 PT 14.9 Seconds (9.4-12.1) H 12/15/16 05:10 ABG pH 7.51 pH Units (7.32-7.45) H 12/26/16 04:39 ABG pCO2 33 mmHg (35-45) L 12/26/16 04:39 ABG pO2 111 mmHg (85-104) H 12/26/16 04:39 ABG Total CO2 27.3 mEq/L (20-26) H 12/26/16 04:39 ABG O2 Saturation 99 % (95-98) H 12/26/16 04:39 ABG Base Excess 3.6 mEq/L (-2.0 to 3.0) H 12/26/16 04:39 BUN 38 mg/dL (7-20) H 01/02/17 06:12 BUN/Creatinine Ratio 54 (6-26) H 01/02/17 06:12 Glucose 105 mg/dL (70-99) H 01/02/17 06:12 POC Glucose 96 (58-89) H 01/01/17 23:52 Calculated Osmolality 301 (280-300) H 01/02/17 06:12 AST 167 Units/L (5-34) H 12/14/16 05:44 ALT 60 Units/L (0-55) H 12/14/16 05:44 Troponin I 1.06 ng/mL (0-0.03) H* 12/14/16 05:44 B-Natriuretic Peptide 150 pg/mL (0-100) H 12/13/16 16:45 Serum Total Protein 5.5 g/dL (6.0-8.3) L 12/14/16 05:44 Albumin 2.3 g/dL (3.5-5.0) L 12/14/16 05:44 Albumin/Globulin Ratio 0.7 (1.1-2.2) L 12/14/16 05:44 Urine Clarity Cloudy (Clear) A 12/31/16 22:44 Ur Specific [place] 1.029 (1.010-1.025) H 12/31/16 22:44 Urine Protein 30 mg/dL (Neg-Trace) H 12/31/16 22:44 Ur Leukocyte Esterase Trace (Negative) H 12/31/16 22:44 Urine Microscopic WBC 15-30 per hpf (0-3) H 12/31/16 22:44 Ur Squamous Epith Cells Many per lpf (None-Few) H 12/31/16 22:44 Urine Yeast Moderate per hpf (None Seen) H 12/31/16 22:44 Ur Culture Indicated? YES (NO) A 12/31/16 22:44 Stl Norovirus GI/GII PCR DETECTED (Not detect) A 12/13/16 21:44 Urine Opiates Screen Positive ng/mL (Tmbcfi=851) H 12/13/16 18:20 Acetaminophen < 1.0 mcg/mL (10-30) L 12/13/16 19:30 U Benzodiazepines Scrn Positive ng/mL (Xhkpch=698) H 12/13/16 18:20 U Marijuana (THC) Screen Positive ng/mL (Cutoff = 50) H 12/13/16 18:20 Staphylococcus sp PCR DETECTED (Not Detect) A 12/13/16 15:41 mecA-Methicil Res Gene DETECTED (Not Detect) A 12/13/16 15:41 General appearance: Present: no acute distress - Respiratory Additional comments: Rhonchi noted bilaterally over anterior lung domínguez. - Cardiovascular Cardiovascular exam: Present: +S1, +S2, tachycardia - GI/Abdominal Additional comments: NG remains intact and clamped - Additional comments: [place] with clear yellow urine - Neurological Exam Additional comments: Remains with no purposeful movement or response. - Skin Additional comments: Rash present over most of body- appears to have extended over lower anterior legs, hands, lower abd, and as previous over posterior torso, neck, and axilla/ groin areas. Palliative Quality Palliative Quality: Screen for Code Status: NA (pt not responsive, awaiting family meeting), Screen for Goals of Care: NA, Screen for Pain: NA, If Pain Regimen Started, Initiate Bowel Regimen: NA, Screen for Nausea/Vomitting: NA Code Status: 12/13/16 18:17 Resuscitation Status: Active [RES] Routine Comment: Resuscitation Status: Full Code Resuscitation Status: Active [RES] Routine Comment: Resuscitation Status: [id number] - Labs CBC & Chem 7: 01/02/17 06:12 01/02/17 06:12 Labs: Laboratory Results - last 24 hr 01/01/17 01/01/17 01/01/17 10:56 17:25 23:52 WBC RBC Hgb Hct MCV MCH MCHC RDW Plt Count MPV Immature Gran % Seg Neutrophils % Lymphocytes % Monocytes % Eosinophils % Basophils % Neutrophils # Lymphocytes # Monocytes # Eosinophils # Basophils # Nucleated RBCs/100 WBC Hypersegmented Neuts Platelet Estimate Polychromasia Sodium Potassium Chloride Carbon Dioxide BUN Creatinine Est GFR ( Amer) Est GFR (Non-Af Amer) BUN/Creatinine Ratio Glucose POC Glucose 118 H 107 H 96 H Calculated Osmolality Calcium 01/02/17 01/02/17 06:12 06:12 WBC 35.2 H* RBC 4.01 Hgb 12.7 Hct 38.2 MCV 95.3 MCH 31.7 MCHC 33.2 RDW 14.6 H Plt Count 390 MPV 10.7 Immature Gran % 2.2 Seg Neutrophils % 91.4 Lymphocytes % 3.9 Monocytes % 2.4 Eosinophils % 0.0 Basophils % 0.1 Neutrophils # 32.2 H Lymphocytes # 1.4 Monocytes # 0.8 Eosinophils # 0.0 Basophils # 0.0 Nucleated RBCs/100 WBC 0.1 H Hypersegmented Neuts Present A Platelet Estimate Normal Polychromasia 1+ A Sodium 141 Potassium 4.0 Chloride 105 Carbon Dioxide 26 BUN 38 H Creatinine 0.70 Est GFR ( Amer) > 60 Est GFR (Non-Af Amer) > 60 BUN/Creatinine Ratio 54 H Glucose 105 H POC Glucose Calculated Osmolality 301 H Calcium 10.8 - ABG Interpretation ABG results: ABG ABG pH 7.51 pH Units (7.32-7.45) H 12/26/16 04:39 ABG pCO2 33 mmHg (35-45) L 12/26/16 04:39 ABG pO2 111 mmHg (85-104) H 12/26/16 04:39 ABG O2 Saturation 99 % (95-98) H 12/26/16 04:39 PT/INR, D-dimer PT 14.9 Seconds (9.4-12.1) H 12/15/16 05:10 Consult Discharge Plan - Plan Referrals: Cole Chapman Jr, MD [Primary Care Provider] - NO,PCP [Non-Partnered Physician] -
[2017-01-02] MEDS: Bisacodyl 10 MG RECTAL SUPPOSITORY RC SCH (09:50)
[2017-01-02] MEDS: Dexamethasone 4 MG/ML VIAL IVP SCH ×2 (09:52→22:33)
[2017-01-02] MEDS: Pantoprazole 40 MG VIAL IVP SCH (09:54)
[2017-01-02] MEDS: Nystatin POWDER 30 GM BOTTLE TP SCH ×3 (09:56→22:34)
[2017-01-02] MEDS: Miconazole 2% cream 118 GM TUBE TP SCH ×2 (09:57→22:34)
--- NOTE | 2017-01-02 13:52 | Event Note ---
Date of Encounter: 01/02/17 Time of Encounter: 13:45 Spoke with pt mother, SCOT Aguirre, re: ongoing goals of care and treatment plan. Updated mother on current condition. She states "This is what I want you to do. I want her comfortable with Ativan and Morphine, and I want you to feed her. Her stomach is small, so turn the feedings down slower and she how she does. She is not to have a trach or PEG, she is too sick to tolerate these". Discussed with Timothy, that if NG tube begins to cause her ulcer to nares, or if she continues to aspirate despite turning down tube feeding, we would have to discontinue. She verbalized that she understood. I asked if she wants IV antibiotics to continues and she stated "yes". Before getting off phone, I again summed up that she desired tube feeding at lower rate, comfort care and comfort medications with Morphine and Ativan, and antibiotics, and she verbalized "yes, that's what I want". D/W Dr. Melgar and primary nurse Olga. Will continue to follow.
[2017-01-02] MEDS ORDERED: *HR* Morphine 2 MG/ML SYRINGE IVP PRN (16:02)
[2017-01-02] MEDS: Fluconazole 200 MG/100 ML 200 MG/100 ML BAG IVPB SCH (16:27)
[2017-01-02] MEDS: *HR* Morphine 2 MG/ML SYRINGE IVP SCH ×2 (16:32→22:33)
--- NOTE | 2017-01-02 18:53 | Internal Med Progress Note ---
Date of Encounter: 01/02/17 Time of Encounter: 10:00 - Assessment and plan (1) Aspiration pneumonia Current Visit: Yes Status: Suspected Assessment and plan: Suspected, secondary to substance abuse and having been found unresponsive at home. One out of 2 initial blood cultures grew staph epidermidis and repeat blood cultures show no growth. Sputum culture grows Escherichia coli. Continue IV meropenem to complete a 14 day course (Day 8 today). Supportive care and supplemental oxygen. Continues to require 8-10 L/m oxygen via Venti mask. Discussed with palliative care, patient requires copious nursing case with frequent suctioning and clearing of nasal secretions as she has nasogastric tube in 1 nostril and the other is currently clogged with secretions. - Pt's mother refuse PEG tube and tracheostomy. - Patient is at high risk of worsen or recurrent aspiration because of unprotected airway. - WBC still high on the long-term antibiotic use, prognosis is poor and highly guarded. - Continue supportive treatment. Pt is at high risk because severe lung infection and anoxic brain injury which leads to nonresponsive status. Qualifiers: Aspiration pneumonia type: unspecified Laterality: bilateral Lung location: unspecified part of lung Qualified Code(s): J69.0 - Pneumonitis due to inhalation of food and vomit (2) Acute and chronic respiratory failure Current Visit: Yes Status: Acute Assessment and plan: Due to aspiration pneumonia. Will continue supportive treatment. Continuous frequent suction to remove the secretion. Pt is DNI and refuse tracheostomy. Qualifiers: Respiratory failure complication: hypoxia and hypercapnia Qualified Code(s) : J96.21 - Acute and chronic respiratory failure with hypoxia; J96.22 - Acute and chronic respiratory failure with hypercapnia (3) DVT prophylaxis Current Visit: No Status: Acute Assessment and plan: Heparin subcutaneously (4) Cardiac arrest Current Visit: Yes Status: Acute Assessment and plan: S/P ACLS, still nonresponsive, cont supportive treatment (5) Anoxic brain injury Current Visit: Yes Status: Acute Assessment and plan: Suspected anoxic brain injury secondary to cardiac arrest. Patient has no purposeful movements, nonverbal. Palliative care team is on board and patient does have a complex social situation. Medical power of privacy attorney seems to be her mother. CODE STATUS is changed to DNR/DNI but no decision has been made regarding hospice/palliative care. Patient cannot have any oral intake with her encephalopathy, which is not expected to improve anytime soon. She would require PEG tube placement for continued nutrition. Surgery consult noted, patient's mother currently does not give consent for PEG placement and patient also continues to require 8-10 L/m oxygen via Ventimask and would not be able to tolerate sedation. 12/30- patient is noted to be in respiratory distress with tachypnea, sinus tachycardia, continues to require at least 15 L/m oxygen via Ventimask. Patient 's family initially requested for transfer to [facility] for higher level of care. However, currently requested to hold off on the transfer. Patient continues to have poor prognosis while the family is struggling to make a decision regarding her long-term care needs. As of today, patient's mother requests for palliative care medications along with tube feeds. 12/31- patient is noted to be tachycardic and tachypneic with worsening leukocytosis. She responds to when necessary IV morphine. Continue supportive care and supplemental oxygen. Palliative care team on board, family meeting with patient's mother set up for 1430 tomorrow. 01/01 - Family meeting hold with pt's mother, no conclusion yet. Pt's mother will talk with pt's father and other family member and give further decision. Continue current treatment at this point. 01/02 - Pt's mother was contacted by palliative care team, details please refer palliative care note. Briefly, still cont IV abx and NG tube feeding, wants comfort management, refuse PEG tube and tracheostomy. Will treat pt as family's wishes. (6) Fungal dermatitis Current Visit: Yes Status: Acute Assessment and plan: Patient is noted to be having erythematous maculopapular rash involving patient' s neck, entire back, flexor medial surfaces of upper and lower extremities. She is also noted to have skin sloughing in skin folds including bilateral axillary, inguinal and sacral areas. Wound care consult. Will continue IV Diflucan along with nystatin powder and local wound care with barrier cream. (7) Glioblastoma Current Visit: Yes Status: Acute Assessment and plan: Hx of glioblastoma. (8) Urinary tract infection Current Visit: Yes Status: Acute Assessment and plan: Urine culture grows Escherichia coli on 12/13/16, sensitive to meropenem, repeated urine culture negative on 12/25/16. On 12/31/16, urine culture shows Yeast species. Pt is on meropenem for aspiration pneumonia now and she is also on Diflucan for Fungal dermatitis. Qualifiers: Urinary tract infection type: site unspecified Hematuria presence: without hematuria Qualified Code(s): N39.0 - Urinary tract infection, site not specified - Time Spent With Patient Greater than 35 minutes - Subjective Interval history: Patient is a 36-year-old female admitted for aspiration pneumonia and cardiac arrest in emergency room. Her past medical history is significant for pontine glioma status post radiation therapy, cigarette smoking, aspiration pneumonia, dysphagia, COPD on 4 L home oxygen, multiple drug abuse. Patient was treated in ICU initially but mental status not improve although aggressive treatment. Family agreed to change code status to DNR/DNI, patient was extubated and moved to regular floor. Patient was seen and examined today, still nonresponsive, looks in acute respiratory distress. On exam, bilateral lung still has diffused rhonchi. Pt still needs high-level oxygen to maintain oxygen saturation. Per palliative care, pt's mother (also POA) wants continue abx and tube feeding , wants comfort care, but refuse PEG tube and tracheostomy. Will continue meropenem IV for aspiration pneumonia per sputum culture result. Continue frequent and intensive airway suction. Patient has high risk for worsen or recurrent aspiration b/o unprotected airway and NG tube feeding. Prognosis is poor and highly guarded. - Constitutional Vitals: Temp Pulse Resp BP Pulse Ox 97.7 F 87 18 149/98 96 01/02/17 12:43 01/02/17 12:43 01/02/17 16:59 01/02/17 12:43 01/02/17 16:59 General appearance: Present: A&O X 0 (somnolent, comatose) - Head Head exam: Present: atraumatic, normocephalic - Eye Eye exam: Present: PERRL, conjuntiva pink, sclera anicteric Pupils: Present: PERRL - Neck Neck exam general surgery: Present: supple, trachea midline. Absent: lymphadenopathy - Respiratory Respiratory exam: Present: accessory muscle use, CTAB, rhonchi (B/L). Absent: rales, wheezes - Cardiovascular Cardiovascular exam: Present: RRR, +S1, +S2. Absent: diastolic murmur, gallop, rubs, systolic murmur - GI/Abdominal GI/Abdominal exam: Present: normal bowel sounds, soft, no peritoneal signs. Absent: distended, tenderness - Extremities Exam Extremities exam: Present: warm, radial pulses palpable and symetrical. Absent : cyanotic, pedal edema - Neurological Exam Neurological exam: Present: pronater drift. Absent: facial droop, speech deficit Additional comments: Nonresponsive. - Skin Skin exam: Present: dry, intact, rash (On both legs, neck, and subaxillary area) Internal Medicine: Result - Labs CBC & Chem 7: 01/02/17 06:12 01/02/17 06:12 Labs: Short CBC 01/02/17 Range/Units 06:12 WBC 35.2 H* (4.3-11.1) K/mcL Hgb 12.7 (11.5-15.4) g/dL Hct 38.2 (35.3-44.9) % Plt Count 390 (140-400) K/mcL Neutrophils # 32.2 H (1.6-8.9) K/mcL BMP 01/02/17 06:12 Sodium 141 Potassium 4.0 Chloride 105 Carbon Dioxide 26 BUN 38 H Creatinine 0.70 Glucose 105 H Calcium 10.8 - ABG Interpretation ABG results: ABG ABG pH 7.51 pH Units (7.32-7.45) H 12/26/16 04:39 ABG pCO2 33 mmHg (35-45) L 12/26/16 04:39 ABG pO2 111 mmHg (85-104) H 12/26/16 04:39 ABG O2 Saturation 99 % (95-98) H 12/26/16 04:39 PT/INR, D-dimer PT 14.9 Seconds (9.4-12.1) H 12/15/16 05:10 - VTE Documentation of Mechanical Device: Intermittent pneumatic compression device Consult Discharge Plan - Plan Referrals: Cole Chapman Jr, MD [Primary Care Provider] - (web request sent on 01/02/17)
[2017-01-03] MEDS: Meropenem 1,000 MG in 0.9 % Sodium Chloride Mini Bag 100 ML IVPB SCH ×4 (00:17→23:45)
[2017-01-03] MEDS: Ipratropium/Albuterol Neb 3 ML IH SCH ×4 (03:37→21:15)
[2017-01-03] MEDS: *HR* Morphine 2 MG/ML SYRINGE IVP SCH ×4 (04:22→20:54)
[2017-01-03] MEDS: *HR* Heparin 5,000 UNIT/ML VIAL SQ SCH ×3 (05:10→20:54)
[2017-01-03 06:15] LABS: Basophils % 0.2 %; Hemoglobin 12.2 g/dL (11.5-15.4); Red Cell Distribution Width 14.7 % (11.5-14.5)
[2017-01-03 06:17] LABS: Basophils # 0.1 K/mcL (0.0-0.2); Hematocrit 37.5 % (35.3-44.9); Immature Granulocytes % 2.9 % (0-4); Lymphocytes # 1.3 K/mcL (0.6-4.6); Lymphocytes % 3.6 %; Mean Corpuscular HGB Conc 32.5 g/dL (31.6-35.5); Mean Corpuscular Hemoglobin 31.9 pg (28.0-33.3); Mean Corpuscular Volume 98.2 fL (83.0-100.0); Mean Platelet Volume 11.8 fL (9.4-12.4); Monocytes # 0.8 K/mcL (0.0-1.3); Monocytes % 2.3 %; Platelet Count 347 K/mcL (140-400); Red Blood Count 3.82 M/mcL (3.82-4.97)
[2017-01-03 06:33] LABS: BUN/Creatinine Ratio 67 (6-26); Blood Urea Nitrogen 43 mg/dL (7-20); Calcium 10.4 mg/dL (8.6-10.8); Carbon Dioxide 28 mEq/L (19-29); Chloride 106 mEq/L (98-109); Glucose 117 mg/dL (70-99); Osmolality,Calculated 310 (280-300); Potassium 3.8 mEq/L (3.5-4.5); Sodium 144 mEq/L (136-145); eGFR For African Americans > 60 (> 60); eGFR For Non-African Americans > 60 (> 60)
[2017-01-03 06:44] LABS: Hypersegmented Neutrophils Present (Not Present); Toxic Granulation Present (Not Present); Toxic Vacuolation Present (Not Present)
[2017-01-03 06:45] LABS: Platelet Estimate Normal (Normal)
--- NOTE | 2017-01-03 08:57 | Palliative Progress Note ---
Date of Encounter: 01/03/17 Time of Encounter: 08:55 - Assessment and plan (1) Anoxic brain injury Current Visit: Yes Status: Acute Assessment and plan: No change in neuro assessment. (2) Aspiration pneumonia Current Visit: Yes Status: Suspected Assessment and plan: Continues on IV atb, supportive oxygen, aerosols Qualifiers: Aspiration pneumonia type: unspecified Laterality: bilateral Lung location: unspecified part of lung Qualified Code(s): J69.0 - Pneumonitis due to inhalation of food and vomit (3) Acute and chronic respiratory failure Current Visit: Yes Status: Acute Qualifiers: Respiratory failure complication: hypoxia and hypercapnia Qualified Code(s) : J96.21 - Acute and chronic respiratory failure with hypoxia; J96.22 - Acute and chronic respiratory failure with hypercapnia (4) Cardiac arrest Current Visit: Yes Status: Acute (5) Counseling regarding advanced care planning and goals of care Current Visit: Yes Status: Acute Assessment and plan: Refer to yesterday's conversation with POA. I will be speaking with her later today. - Time Spent With Patient Total time spent is greater than 50% in coordination of care (as documented) at patient's floor/unit and/or counseling patient: 25 - 35 minutes - Subjective Interval history: Patient resting quietly, resp deep and unlabored. Less congested than yesterday. O2 has been decreased to 4lpm. Rash remains to trunk and all extremities. - Constitutional Vitals: Abnormal lab results WBC 35.2 K/mcL (4.3-11.1) H* 01/03/17 04:30 RDW 14.7 % (11.5-14.5) H 01/03/17 04:30 Metamyelocytes % 4.0 % (0) H 12/14/16 23:35 Promyelocytes % 1.0 % (0) H 12/14/16 00:25 Neutrophils # 32.0 K/mcL (1.6-8.9) H 01/03/17 04:30 Nucleated RBCs/100 WBC 0.1 /100 WBC (0) H 01/02/17 06:12 Hypersegmented Neuts Present (Not Present) A 01/03/17 04:30 Reactive Lymphocytes Present (Not Present) A 12/26/16 03:21 Toxic Granulation Present (Not Present) A 01/03/17 04:30 Toxic Vacuolation Present (Not Present) A 01/03/17 04:30 Clumped Platelets Few (Not Present) A 12/14/16 00:25 Large Platelets Present (Not Present) A 12/26/16 03:21 Polychromasia 1+ (Not Present) A 01/02/17 06:12 PT 14.9 Seconds (9.4-12.1) H 12/15/16 05:10 ABG pH 7.51 pH Units (7.32-7.45) H 12/26/16 04:39 ABG pCO2 33 mmHg (35-45) L 12/26/16 04:39 ABG pO2 111 mmHg (85-104) H 12/26/16 04:39 ABG Total CO2 27.3 mEq/L (20-26) H 12/26/16 04:39 ABG O2 Saturation 99 % (95-98) H 12/26/16 04:39 ABG Base Excess 3.6 mEq/L (-2.0 to 3.0) H 12/26/16 04:39 BUN 43 mg/dL (7-20) H 01/03/17 04:30 BUN/Creatinine Ratio 67 (6-26) H 01/03/17 04:30 Glucose 117 mg/dL (70-99) H 01/03/17 04:30 POC Glucose 148 (58-89) H 01/03/17 05:59 Calculated Osmolality 310 (280-300) H 01/03/17 04:30 AST 167 Units/L (5-34) H 12/14/16 05:44 ALT 60 Units/L (0-55) H 12/14/16 05:44 Troponin I 1.06 ng/mL (0-0.03) H* 12/14/16 05:44 B-Natriuretic Peptide 150 pg/mL (0-100) H 12/13/16 16:45 Serum Total Protein 5.5 g/dL (6.0-8.3) L 12/14/16 05:44 Albumin 2.3 g/dL (3.5-5.0) L 12/14/16 05:44 Albumin/Globulin Ratio 0.7 (1.1-2.2) L 12/14/16 05:44 Urine Clarity Cloudy (Clear) A 12/31/16 22:44 Ur Specific [place] 1.029 (1.010-1.025) H 12/31/16 22:44 Urine Protein 30 mg/dL (Neg-Trace) H 12/31/16 22:44 Ur Leukocyte Esterase Trace (Negative) H 12/31/16 22:44 Urine Microscopic WBC 15-30 per hpf (0-3) H 12/31/16 22:44 Ur Squamous Epith Cells Many per lpf (None-Few) H 12/31/16 22:44 Urine Yeast Moderate per hpf (None Seen) H 12/31/16 22:44 Ur Culture Indicated? YES (NO) A 12/31/16 22:44 Stl Norovirus GI/GII PCR DETECTED (Not detect) A 12/13/16 21:44 Urine Opiates Screen Positive ng/mL ([id number]) H 12/13/16 18:20 Acetaminophen < 1.0 mcg/mL (10-30) L 12/13/16 19:30 U Benzodiazepines Scrn Positive ng/mL ([id number]=[id number]) H 12/13/16 18:20 U Marijuana (THC) Screen Positive ng/mL (Cutoff = 50) H 12/13/16 18:20 Staphylococcus sp PCR DETECTED (Not Detect) A 12/13/16 15:41 mecA-Methicil Res Gene DETECTED (Not Detect) A 12/13/16 15:41 General appearance: Present: no acute distress - Respiratory Additional comments: Few occasional rhonchi, but less than yesterday. O2 at 4lpm - Cardiovascular Cardiovascular exam: Present: +S1, +S2, tachycardia - GI/Abdominal GI/Abdominal exam: Present: normal bowel sounds, soft - Additional comments: [place] with yellow urine - sediment noted - Neurological Exam Additional comments: Eyes open and blinking. No response to verbal or tactile stimuli. - Skin Skin exam: Present: dry, pallor, rash, warm Additional comments: Rash remains to trunk and all extremities Palliative Quality Palliative Quality: Screen for Code Status: NA (pt not responsive, awaiting family meeting), Screen for Goals of Care: NA, Screen for Pain: NA, If Pain Regimen Started, Initiate Bowel Regimen: NA, Screen for Nausea/Vomitting: NA Code Status: 12/13/16 18:17 Resuscitation Status: Active [RES] Routine Comment: Resuscitation Status: [id number] Resuscitation Status: Active [RES] Routine Comment: Resuscitation Status: Full Code 01/02/17 13:45 DNR [Resuscitation Status: Active] [RES] Routine Comment: Resuscitation Status: DNR-Comfort Care - Labs CBC & Chem 7: 01/03/17 04:30 01/03/17 04:30 Labs: Laboratory Results - last 24 hr 01/02/17 01/02/17 01/02/17 06:10 12:23 17:23 WBC RBC Hgb Hct MCV MCH MCHC RDW Plt Count MPV Immature Gran % Seg Neutrophils % Lymphocytes % Monocytes % Eosinophils % Basophils % Neutrophils # Lymphocytes # Monocytes # Eosinophils # Basophils # Hypersegmented Neuts Toxic Granulation Toxic Vacuolation Platelet Estimate Sodium Potassium Chloride Carbon Dioxide BUN Creatinine Est GFR ( Amer) Est GFR (Non-Af Amer) BUN/Creatinine Ratio Glucose POC Glucose 109 H 102 H 121 H Calculated Osmolality Calcium 01/03/17 01/03/17 01/03/17 00:05 04:30 04:30 WBC 35.2 H* RBC 3.82 Hgb 12.2 Hct 37.5 MCV 98.2 MCH 31.9 MCHC 32.5 RDW 14.7 H Plt Count 347 MPV 11.8 Immature Gran % 2.9 Seg Neutrophils % 91.0 Lymphocytes % 3.6 Monocytes % 2.3 Eosinophils % 0.0 Basophils % 0.2 Neutrophils # 32.0 H Lymphocytes # 1.3 Monocytes # 0.8 Eosinophils # 0.0 Basophils # 0.1 Hypersegmented Neuts Present A Toxic Granulation Present A Toxic Vacuolation Present A Platelet Estimate Normal Sodium 144 Potassium 3.8 Chloride 106 Carbon Dioxide 28 BUN 43 H Creatinine 0.64 Est GFR ( Amer) > 60 Est GFR (Non-Af Amer) > 60 BUN/Creatinine Ratio 67 H Glucose 117 H POC Glucose 109 H Calculated Osmolality 310 H Calcium 10.4 01/03/17 05:59 WBC RBC Hgb Hct MCV MCH MCHC RDW Plt Count MPV Immature Gran % Seg Neutrophils % Lymphocytes % Monocytes % Eosinophils % Basophils % Neutrophils # Lymphocytes # Monocytes # Eosinophils # Basophils # Hypersegmented Neuts Toxic Granulation Toxic Vacuolation Platelet Estimate Sodium Potassium Chloride Carbon Dioxide BUN Creatinine Est GFR ( Amer) Est GFR (Non-Af Amer) BUN/Creatinine Ratio Glucose POC Glucose 148 H Calculated Osmolality Calcium - ABG Interpretation ABG results: ABG ABG pH 7.51 pH Units (7.32-7.45) H 12/26/16 04:39 ABG pCO2 33 mmHg (35-45) L 12/26/16 04:39 ABG pO2 111 mmHg (85-104) H 12/26/16 04:39 ABG O2 Saturation 99 % (95-98) H 12/26/16 04:39 PT/INR, D-dimer PT 14.9 Seconds (9.4-12.1) H 12/15/16 05:10 Consult Discharge Plan - Plan Referrals: Cole Chapman Jr, MD [Primary Care Provider] - (web request sent on 01/02/17)
[2017-01-03] MEDS: Bisacodyl 10 MG RECTAL SUPPOSITORY RC SCH (09:13)
[2017-01-03] MEDS: Dexamethasone 4 MG/ML VIAL IVP SCH ×2 (09:19→20:54)
[2017-01-03] MEDS: Pantoprazole 40 MG VIAL IVP SCH (09:19)
[2017-01-03] MEDS: Miconazole 2% cream 118 GM TUBE TP SCH ×2 (09:26→20:56)
[2017-01-03] MEDS: Nystatin POWDER 30 GM BOTTLE TP SCH ×3 (09:26→20:54)
--- NOTE | 2017-01-03 14:13 | Infectious Disease Consult ---
Date of Encounter: 01/03/17 Time of Encounter: 14:11 Assessment and Plan (1) Septic shock Status: Acute Assessment and plan: On admission, the patient had tachycardia, leukocytosis, and fever with Tmax of 102. The patient developed hypotension requiring a short course of levophed. Lactic acid was normal. Blood cultures grew S. epi 1/2 sets that was likely a contaminant. Resolved. The patient no longer has hypotension requiring vasopressors. Likely secondary to bilateral pneumonia. (2) Leukocytosis Status: Acute Assessment and plan: WBC markedly elevated at 35.2 with neutrophilic predominance. Etiology of leukocytosis unclear at this point. The patient has been on IV Meropenem x 10 days and continues to have an elevated WBC. Given the patient's vegetative state, I am unable to get any information from the patient. Get CT of the chest, abdomen, and pelvis with IV and oral contrast. Repeat blood cultures x 2 sets now. Check procalcitonin. Get peripheral smear. Check amylase, lipase, LFTs. Send urine specimen for UA and culture. Check C. diff. Continue meropenem 1 gram IV Q8H for now. Add Vancomycin IV. Pharmacy to dose. Goal trough approximately 15. Will likely de-escalate antibiotics tomorrow based on CT results. Qualifiers: Leukocytosis type: unspecified Qualified Code(s): D72.829 - Elevated white blood cell count, unspecified (3) Rash Status: Acute Assessment and plan: Etiology unclear. Drug rash vs. other. Get dermatology to evaluate. Continue fluconazole 200mg IV daily for now. Continue wound care per the wound care team recommendations. (4) Aspiration pneumonia Status: Resolved Assessment and plan: CT of the chest completed in the ED revealed bilateral PNA. Causative organism E. coli per sputum culture, but concern for aspiration given the patient's history of dysphagia and non-compliance with PEG tube and recommended NPO status. Additionally, the patient has a history of drug use and was found unresponsive at home which puts her at high risk for aspiration as well. Treated with 7 days of IV cefepime. Repeat sputum culture obtained 12/23/16 grew E. coli again, but repeat CXR did not show infiltrate. The patient's mental status remains altered. There is a high likelihood that she is continuing to aspirate. She is currently on day 10 of meropenem. Continue meropenem 1 gram IV Q8H for now. Will likely de-escalate soon. Continue aspiration precautions. Qualifiers: Aspiration pneumonia type: unspecified Laterality: bilateral Lung location: unspecified part of lung Qualified Code(s): J69.0 - Pneumonitis due to inhalation of food and vomit (5) Urinary tract infection Status: Resolved Assessment and plan: Urine culture obtained 12/13/16 was positive for E. coli. The patient was treated with a 7 day course of IV cefepime. Repeat urine culture 12/25/16 was negative. Repeat urinalysis and urine culture now. Qualifiers: Urinary tract infection type: site unspecified Hematuria presence: without hematuria Qualified Code(s): N39.0 - Urinary tract infection, site not specified (6) Norovirus Status: Resolved Assessment and plan: Noted on admission. The patient continues to have loose stools, but likely secondary to tube feeds. Will check C. diff given the patient's long antibiotic exposure and increased WBC cound. (7) Cardiac arrest Status: Resolved Assessment and plan: On admission. Required defibrillation x 2, amiodarone, and epinephrine before ROSC. (8) Respiratory failure requiring intubation Status: Acute Assessment and plan: Secondary to bilateral pneumonia and cardiac arrest. Extubated 12/26/16. 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 (10) Anoxic brain injury Status: Acute Assessment and plan: CT of the head negative. Neurology consulted. Likely persistant vegetative state with little chance of recovery. (11) COPD (chronic obstructive pulmonary disease) Status: Chronic Qualifiers: COPD type: unspecified COPD Qualified Code(s): J44.9 - Chronic obstructive pulmonary disease, unspecified (12) Primary cancer of brainstem Status: Chronic Assessment and plan: Diagnosed with pontine glioma in 2016, status post radiation. Follows with [facility] Dr. Allison. Infectious Disease HPI - Data of Consult Patient: new to practice Consult date: 01/03/17 Requesting Physician: Robert Melgar MD Primary Care Provider: Cole Chapman Jr, MD - Consult Narrative Reason for consult: Persistent leukocytosis History of present illness: Ms. 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 The patient was admitted to the hospital on December 13 for aspiration pneumonia. We are consulted January 03 for further evaluation and treatment recommendations regarding persistent leukocytosis. Patient's a 36-year-old female past medical history as stated above. There is no family at the bedside and the patient is in a chronic vegetative state, therefore, all of the information is obtained from the medical record. Apparently, on the day of admission, the patient was found at home unresponsive and was brought to the emergency department by EMS. Upon arrival, the patient was afebrile, but she was tachycardic and had a leukocytosis and she was hypoxic. The emergency department physician intubated the patient in that approximately 10 minutes later she became bradycardic and went pulseless and required defibrillation 2 for pulseless V. tach in addition to IV epinephrine and amiodarone. Laboratory studies revealed a white blood cell count of 18.7 thousand and an acute kidney injury. Imaging in the ER included a CT of the head that was negative, chest x-ray showed pulmonary vascular congestion, and a CTA of the chest that was negative for pulmonary embolism, but did show bilateral pneumonia. Blood cultures were obtained in the emergency department that were +1 out of 2 sets for staph epi. A urine culture was positive for Escherichia coli. Any urine drug screen was positive for benzos, opiates, and marijuana. The patient was admitted to the hospital. She was given a dose of Levaquin, Zosyn, vancomycin, and clindamycin in the emergency department. Upon admission, her antibiotics were switched to vancomycin and cefepime. Her blood pressure dropped and she was started on vasopressors, which were discontinued approximately 24 hours later. Patient was noted to have copious amounts of diarrhea and a GI panel was positive for Norovirus. Strep pneumococcal and legionella urinary antigen tests were negative. Sputum culture was obtained that was positive for pansensitive Escherichia coli. Repeat blood cultures drawn December 18 were negative. The patient's white blood cell count continued to be elevated and aztreonam was added to the antibiotic regimen. While intubated, the patient's mental status remained altered despite discontinuation of sedation. Neurology was consulted and deemed that the patient was likely in a chronic vegetative state. Palliative care has been consulted and is following. Over the course of therapy, the patient's white blood cell count did normalize, but began to go back up again on December 23. Repeat cultures of the blood were negative 2/2 sets on 12/23/16. Sputum culture again was positive for Escherichia coli. The patient's antibiotics were switched to meropenem. Repeat culture of the urine was negative. Due to persistent leukocytosis, blood cultures were again repeated on 12/31/16 that are NGTD. Despite the patient's persistent vegetative state, the family declined tracheostomy and PEG tube placement and the patient was extubated without plans to reintubate in the case of respiratory distress. On December 29, the patient did spike fever of 100.7. Her white blood cell count has been elevated and is up to 35,000 with neutrophilic predominance. Currently, the patient is on day 10 of IV meropenem. IV fluconazole has also been added due to concerns for candidal skin infection. She is receiving tube feeds per NG tube and has been requiring high flow O2 and frequent suctioning to maintain her oxygen saturations. We have been asked to evaluate and make further recommendations. During my exam today, the patient is unresponsive with non-purposeful blinking and movement of her head. There is no family at the bedside. CC: Robert Melgar MD Past Med Surg Social Fam HX - Past Medical History Source: old records reviewed, nursing notes reviewed Medical history: asthma, cancer (Pontine glioma s/p radiation ), COPD, seizures Psychiatric history: depression - Past Surgical History Surgical History: other - Social History Smoking Status: Current every day smoker Smokeless Tobacco Status: No Alcohol use: none Drug use: none Infectious Disease-CN:Meds Albuterol Sulfate [Albuterol Inhaler] 2 puff IH Q4HR PRN #1 unit 11/15/15 [Rx] Docusate Sodium [Dok] 250 mg PO DAILY #30 capsule 03/09/16 [Rx] Folic Acid 1 mg PO DAILY 06/17/16 [History] Simethicone [Gas-X] 80 mg PO DAILY #30 tab.chew 08/16/16 [Rx] Nystatin [Nystatin Suspension] 5 ml PO QID #120 ml 09/17/16 [Rx] Calcium Carbonate/Vitamin D3 [Calcium 500-Vit D3 200 Tablet] 1 each PO DAILY # 30 tablet 10/25/16 [Rx] Sulfamethoxazole/Trimeth DS [Bactrim DS] 1 each PO DAILY #30 tablet 10/25/16 [Rx ] Beclomethasone Diprop 80mcg [Qvar 80 mcg] 1 puff IH BID #1 aer.w.adap 11/13/16 [ Rx] Bisacodyl [Dulcolax] 5 - 10 mg PO DAILY PRN #60 tablet 11/13/16 [Rx] Dexamethasone [Decadron] 4 mg PO BID #60 tablet 11/13/16 [Rx] Famotidine [Pepcid] 20 mg PO DAILY #30 tablet 11/13/16 [Rx] ALPRAZolam [Xanax 1 MG Tablet] 1 - 2 mg PO TID PRN #126 tablet 11/23/16 [Rx] HYDROcodone/Acet 10/325 mg [Leland 10-325 mg] 1 - 2 tab PO Q4HR PRN #240 tab [Rx] Citalopram [CeleXA] 20 mg PO DAILY #30 tablet 12/04/16 [Rx] Gabapentin [Neurontin] 800 mg PO QID #120 tablet 12/04/16 [Rx] Ascorbic Acid [Vitamin C] 500 mg PO DAILY 12/13/16 [History] Ondansetron ODT [Zofran ODT] 4 mg PO Q6H PRN 12/13/16 [History] Allergies ethinyl estradiol [From Ortho Tri-Cyclen (28)] Allergy (Verified 11/01/16 23:20) Hives norgestimate [From Ortho Tri-Cyclen (28)] Allergy (Verified 11/01/16 23:20) Hives ROS unobtainable: due to mental status Exam - Constitutional Vitals: Temp Pulse Resp BP Pulse Ox 97.3 F L 53 16 141/92 96 01/03/17 10:43 01/03/17 10:43 01/03/17 10:43 01/03/17 10:43 01/03/17 10:43 General appearance: average body habitus, mild distress, no febrile, no cooperative - Head Head exam: Present: atraumatic, normal inspection, normocephalic - Eye Eye exam: Present: normal appearance. Absent: periorbital swelling, scleral icterus Additional comments: Spontaneous blinking noted. Corneal reflex intact. - ENT ENT exam: Present: mucous membranes dry - Neck Neck exam: Present: normal inspection. Absent: lymphadenopathy - Respiratory Respiratory exam: Present: respiratory distress (Mild), rhonchi, wheezes, tachypnea Additional comments: O2 via simple mask. - Cardiovascular Cardiovascular exam: Present: +S1, +S2, tachycardia. Absent: irregular rhythm - GI/Abdominal GI/Abdominal exam: Present: normal bowel sounds, soft. Absent: distended, tenderness Additional comments: Engel catheter noted to be draining clear, dark yellow urine. - Extremities Exam Extremities exam: Absent: joint swelling, pedal edema, tenderness - Neurological Exam Neurological exam: Present: altered. Absent: facial droop Additional comments: Patient unresponsive, lying in bed with eyes open, but does not respond to verbal stimuli. Withdraws from painful stimuli. Does not follow commands. RUE contracted. LUE and BLE flaccid. No purposeful movement noted on exam. - Skin Skin exam: Present: rash (Diffuse maculopapular rash noted to the trunk and extremities, worse in the intertriginous folds.) - Additional findings Additional findings: EPIV noted to the RUE with transparent dressing C/D/I. Infectious Disease CN: Results - Labs CBC & Chem 7: 01/04/17 06:27 01/04/17 07:39 Cultures: Cultures 12/31/16 22:44 Urine Culture - Preliminary Urine,Clean Catch Yeast Species 12/31/16 10:36 Blood Culture - Preliminary Peripheral Venipuncture No growth. 12/31/16 10:30 Blood Culture - Preliminary Peripheral Venipuncture No growth. 12/23/16 08:06 Blood Culture - Final Peripheral Venipuncture No growth. 12/23/16 08:08 Blood Culture - Final Peripheral Venipuncture No growth. 12/25/16 03:40 Urine Culture - Final Urine,Catheterized No growth. 12/23/16 20:52 Sputum Culture - Final Sputum Escherichia coli 12/15/16 09:30 Blood Culture - Final Central Venous Catheter No growth. 12/15/16 09:36 Blood Culture - Final Peripheral Venipuncture No growth. 12/15/16 09:36 Blood Culture - Final Peripheral Venipuncture No growth. 12/14/16 04:45 Sputum Culture - Final Sputum Escherichia coli 12/14/16 09:05 Legionella Antigen - Final Urine,[place] Streptococcus pneumoniae Antigen (M - Final Serology: Serology 12/31/16 12/14/16 12/13/16 Range/Units 22:44 09:05 21:44 Urine Color Yellow (Yellow) Urine Clarity Cloudy A (Clear) Urine pH 6.5 (5.0-8.0) pH Units Ur Specific [place] 1.029 H (1.010-1.025) Urine Protein 30 H (Neg-Trace) mg/dL Urine Glucose (UA) Normal (Normal) mg/dL Urine Ketones Negative (Negative) mg/dL Urine Blood Negative (Negative) Urine Nitrite Negative (Negative) Urine Bilirubin Negative (Negative) Urine Urobilinogen Normal (Normal) mg/dL Ur Leukocyte Esterase Trace H (Negative) Urine Microscopic RBC Test Not Performed Urine Microscopic WBC 15-30 H (0-3) per hpf Ur Squamous Epith Cells Many H (None-Few) per lpf Urine Bacteria None Seen (None-Few) per hpf Hyaline Casts None Seen (None-Few) per lpf Urine Yeast Moderate H (None Seen) per hpf Ur Culture Indicated? YES A (NO) Urine Sodium 121.0 mEq/L Urine Potassium 45.9 mEq/L Urine Chloride 146 mEq/L Urine Test (Negative) Stl C. cayetanensis PCR Not detected (Not detect) Stool Rotavirus A PCR Not detected (Not detect) Stl Adenov F 40/41 PCR Not detected (Not detect) Stool Astrovirus (PCR) Not detected (Not detect) Stool Campylobacter PCR Not detected (Not detect) Stl C. diff Tox A/B PCR Not detected (Not detect) Stool Cryptosporidium PCR Not detected (Not detect) Stl Sh Tox Pr E STEC PCR Not detected (Not detect) Stool E coli O157 PCR Not detected (Not detect) Stl Enterotoxigenic E PCR Not detected (Not detect) Stool EPEC (PCR) Not detected (Not detect) Stool EAEC (PCR) Not detected (Not detect) Stl E. histolytica PCR Not detected (Not detect) Stool Giardia Lamblia PCR Not detected (Not detect) Stool Salmonella PCR Not detected (Not detect) Stool Sapovirus (PCR) Not detected (Not detect) Stl P. shigelloides PCR Not detected (Not detect) Stl Shigella/EIEC PCR Not detected (Not detect) St Y.enterocolitica PCR Not detected (Not detect) Stool Vibrio (PCR) Not detected (Not detect) Stl Vibrio cholerae PCR Not detected (Not detect) Stl Norovirus GI/GII PCR DETECTED A (Not detect) Stl GI Panel (PCR) Com See below Chlamy pneumoniae PCR (Not Detect) Adenovirus (PCR) (Not Detect) B. pertussis DNA (PCR) (Not Detect) Coronavirus OC43 (PCR) (Not Detect) Coronavirus HKU1 (PCR) (Not Detect) Coronavirus 229E (PCR) (Not Detect) Coronavirus NL63 (PCR) (Not Detect) Human Metapneumovirus (Not Detect) Influenza A (H1) PCR (Not Detect) Influ A (H1N1/09) PCR (Not Detect) Influenza A (H3) PCR (Not Detect) Influenza A Untype (PCR) (Not Detect) Influenza Type B (PCR) (Not Detect) M.pneumoniae DNA (PCR) (Not Detect) Parainfluenza 1 (PCR) (Not Detect) Parainfluenza 2 (PCR) (Not Detect) Parainfluenza 3 (PCR) (Not Detect) Parainfluenza 4 (PCR) (Not Detect) RSV (PCR) (Not Detect) Entero/Rhino (PCR) (Not Detect) 12/13/16 12/13/16 Range/Units 18:20 18:15 Urine Color (Yellow) Urine Clarity (Clear) Urine pH (5.0-8.0) pH Units Ur Specific [place] (1.010-1.025) Urine Protein (Neg-Trace) mg/dL Urine Glucose (UA) (Normal) mg/dL Urine Ketones (Negative) mg/dL Urine Blood (Negative) Urine Nitrite (Negative) Urine Bilirubin (Negative) Urine Urobilinogen (Normal) mg/dL Ur Leukocyte Esterase (Negative) Urine Microscopic RBC Urine Microscopic WBC (0-3) per hpf Ur Squamous Epith Cells (None-Few) per lpf Urine Bacteria (None-Few) per hpf Hyaline Casts (None-Few) per lpf Urine Yeast (None Seen) per hpf Ur Culture Indicated? (NO) Urine Sodium mEq/L Urine Potassium mEq/L Urine Chloride mEq/L Urine Test Negative (Negative) Stl C. cayetanensis PCR (Not detect) Stool Rotavirus A PCR (Not detect) Stl Adenov F 40/41 PCR (Not detect) Stool Astrovirus (PCR) (Not detect) Stool Campylobacter PCR (Not detect) Stl C. diff Tox A/B PCR (Not detect) Stool Cryptosporidium PCR (Not detect) Stl Sh Tox Pr E STEC PCR (Not detect) Stool E coli O157 PCR (Not detect) Stl Enterotoxigenic E PCR (Not detect) Stool EPEC (PCR) (Not detect) Stool EAEC (PCR) (Not detect) Stl E. histolytica PCR (Not detect) Stool Giardia Lamblia PCR (Not detect) Stool Salmonella PCR (Not detect) Stool Sapovirus (PCR) (Not detect) Stl P. shigelloides PCR (Not detect) Stl Shigella/EIEC PCR (Not detect) St Y.enterocolitica PCR (Not detect) Stool Vibrio (PCR) (Not detect) Stl Vibrio cholerae PCR (Not detect) Stl Norovirus GI/GII PCR (Not detect) Stl GI Panel (PCR) Com Chlamy pneumoniae PCR Not Detected (Not Detect) Adenovirus (PCR) Not Detected (Not Detect) B. pertussis DNA (PCR) Not Detected (Not Detect) Coronavirus OC43 (PCR) Not Detected (Not Detect) Coronavirus HKU1 (PCR) Not Detected (Not Detect) Coronavirus 229E (PCR) Not Detected (Not Detect) Coronavirus NL63 (PCR) Not Detected (Not Detect) Human Metapneumovirus Not Detected (Not Detect) Influenza A (H1) PCR Not Detected (Not Detect) Influ A (H1N1/09) PCR Not Detected (Not Detect) Influenza A (H3) PCR Not Detected (Not Detect) Influenza A Untype (PCR) Not Detected (Not Detect) Influenza Type B (PCR) Not Detected (Not Detect) M.pneumoniae DNA (PCR) Not Detected (Not Detect) Parainfluenza 1 (PCR) Not Detected (Not Detect) Parainfluenza 2 (PCR) Not Detected (Not Detect) Parainfluenza 3 (PCR) Not Detected (Not Detect) Parainfluenza 4 (PCR) Not Detected (Not Detect) RSV (PCR) Not Detected (Not Detect) Entero/Rhino (PCR) Not Detected (Not Detect) - VTE Documentation of Mechanical Device: Intermittent pneumatic compression device Consult Discharge Plan - Plan Referrals: Cole Chapman Jr, MD [Primary Care Provider] - (web request sent on 01/02/17) - Attending Attestation I examined this patient and my medical decision-making was reviewed with the INSTRUMENT INSPECTOR/PA/Advanced Practice Nurse/Resident Physician. I agree with the documented findings, disposition and treatment plan as described except to the extent set forth below. This is an addendum to original report dictated by Radha Maldonado CNP, please refer to Cheyanne morales for full details. Patient is a 36-year-old unfortunate female who apparently has a history of pontine glioma diagnosed in 2016 status post radiation with residual dysphagia. Patient came to the hospital on December 13 for aspiration pneumonia we are consulted on January 03 for evaluation of persistent leukocytosis. Patient apparently had pneumonia with causative organism likely Escherichia coli per cultures secondary to aspiration. Patient was treated appropriately and she was doing clinically better and then she took a turn for the worse. On December 26 she started having worsening leukocytosis 1717 she had a one-time fever. Patient was restarted on meropenem and continued to have persistent leukocytosis about 35,000 with about 90% neutrophils. We were asked evaluation to make further recommendation. At this point I am concerned for infectious etiology. Source is not clear. Patient has no meningeal signs. Its very hard to get any history or review of system from the patient. Concern for re-aspiration. Also concern for an index intra-abdominal process. We will check blood cultures 2 now. Check peripheral smear and pro-calcitonin level Get a CT chest abdomen and pelvis will with contrast Check LFTs and lipase and amylase Continue current antibiotics and we will add vancomycin to broaden the coverage while we figure this out. Well probably stop meropenem tomorrow if CTs are negative.
[2017-01-03] MEDS: Fluconazole 200 MG/100 ML 200 MG/100 ML BAG IVPB SCH (15:21)
--- NOTE | 2017-01-03 19:07 | Internal Med Progress Note ---
Date of Encounter: 01/03/17 Time of Encounter: 09:00 - Assessment and plan (1) Aspiration pneumonia Current Visit: Yes Status: Suspected Assessment and plan: Suspected, secondary to substance abuse and having been found unresponsive at home. One out of 2 initial blood cultures grew staph epidermidis and repeat blood cultures show no growth. Sputum culture grows Escherichia coli. Continue IV meropenem to complete a 14 day course (Day 9 today). Supportive care and supplemental oxygen. Continues to require 4 L/m oxygen via Venti mask. Discussed with palliative care, patient requires copious nursing case with frequent suctioning and clearing of nasal secretions as she has nasogastric tube in 1 nostril and the other is currently clogged with secretions. - ID consult appreciated, cont meropenem, add vanco. - Patient is at high risk of worsen or recurrent aspiration because of unprotected airway. - WBC still high on the long-term antibiotic use, prognosis is poor and highly guarded. - Continue supportive treatment. Pt is at high risk because severe lung infection and anoxic brain injury which leads to nonresponsive status. Qualifiers: Aspiration pneumonia type: unspecified Laterality: bilateral Lung location: unspecified part of lung Qualified Code(s): J69.0 - Pneumonitis due to inhalation of food and vomit (2) Acute and chronic respiratory failure Current Visit: Yes Status: Acute Assessment and plan: Due to aspiration pneumonia. Will continue supportive treatment. Continuous frequent suction to remove the secretion. Cont aspiration precaution. Pt is DNI and refuse tracheostomy. Qualifiers: Respiratory failure complication: hypoxia and hypercapnia Qualified Code(s) : J96.21 - Acute and chronic respiratory failure with hypoxia; J96.22 - Acute and chronic respiratory failure with hypercapnia (3) DVT prophylaxis Current Visit: No Status: Acute Assessment and plan: Heparin subcutaneously (4) Cardiac arrest Current Visit: Yes Status: Resolved Assessment and plan: Happened on admission. S/P ACLS, still nonresponsive, cont supportive treatment (5) Anoxic brain injury Current Visit: Yes Status: Acute Assessment and plan: Suspected anoxic brain injury secondary to cardiac arrest. Patient has no purposeful movements, nonverbal. Palliative care team is on board and patient does have a complex social situation. Medical power of district attorney seems to be her mother. CODE STATUS is changed to DNR/DNI but no decision has been made regarding hospice/palliative care. Patient cannot have any oral intake with her encephalopathy, which is not expected to improve anytime soon. She would require PEG tube placement for continued nutrition. Surgery consult noted, patient's mother currently does not give consent for PEG placement and patient also continues to require 8-10 L/m oxygen via Ventimask and would not be able to tolerate sedation. 12/30- patient is noted to be in respiratory distress with tachypnea, sinus tachycardia, continues to require at least 15 L/m oxygen via Ventimask. Patient 's family initially requested for transfer to [facility] for higher level of care. However, currently requested to hold off on the transfer. Patient continues to have poor prognosis while the family is struggling to make a decision regarding her long-term care needs. As of today, patient's mother requests for palliative care medications along with tube feeds. 12/31- patient is noted to be tachycardic and tachypneic with worsening leukocytosis. She responds to when necessary IV morphine. Continue supportive care and supplemental oxygen. Palliative care team on board, family meeting with patient's mother set up for 1430 tomorrow. 01/01 - Family meeting hold with pt's mother, no conclusion yet. Pt's mother will talk with pt's father and other family member and give further decision. Continue current treatment at this point. 01/02 - Pt's mother was contacted by palliative care team, details please refer palliative care note. Briefly, still cont IV abx and NG tube feeding, wants comfort management, refuse PEG tube and tracheostomy. Will treat pt as family's wishes. 01/03 - Cont supportive treatment and treat underlying infection. (6) Fungal dermatitis Current Visit: Yes Status: Acute Assessment and plan: Patient is noted to be having erythematous maculopapular rash involving patient' s neck, entire back, flexor medial surfaces of upper and lower extremities. She is also noted to have skin sloughing in skin folds including bilateral axillary, inguinal and sacral areas. Wound care consult. Will continue IV Diflucan along with nystatin powder and local wound care with barrier cream. Plan to consult dermatology (7) Glioblastoma Current Visit: Yes Status: Acute Assessment and plan: Hx of glioblastoma. S/P radiation therapy. (8) Urinary tract infection Current Visit: Yes Status: Resolved Assessment and plan: Urine culture grows Escherichia coli on 12/13/16, sensitive to meropenem, repeated urine culture negative on 12/25/16. On 12/31/16, urine culture shows Yeast species. Pt is on meropenem for aspiration pneumonia now and she is also on Diflucan for Fungal dermatitis. Will repeat urine culture. Qualifiers: Urinary tract infection type: site unspecified Hematuria presence: without hematuria Qualified Code(s): N39.0 - Urinary tract infection, site not specified (9) Norovirus Current Visit: Yes Status: Resolved Assessment and plan: Noted on admission. The patient continues to have loose stools, but likely secondary to tube feeds. Will check C. diff given the patient's long antibiotic exposure and increased WBC count. 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 Cont Dexamethasone 3mg ivp BID. (11) Rash Current Visit: Yes Status: Acute Assessment and plan: Etiology unclear. Fungal infection vs Drug rash. Will cont fluconazole and consult dermatology. Cont wound care. - Time Spent With Patient Greater than 35 minutes - Subjective Interval history: Patient is a 36-year-old female admitted for aspiration pneumonia and cardiac arrest in emergency room. Her past medical history is significant for pontine glioma status post radiation therapy, cigarette smoking, aspiration pneumonia, dysphagia, COPD on 4 L home oxygen, multiple drug abuse. Patient was treated in ICU initially but mental status not improve although aggressive treatment. Family agreed to change code status to DNR/DNI, patient was extubated and moved to regular floor. Patient was seen and examined today, still nonresponsive, still looks in acute respiratory distress. On exam, bilateral lung still has diffused rhonchi. Pt still needs high-level oxygen to maintain oxygen saturation. ID consult appreciated. Recommedation will be followed. Cont aspiration precaution. Continue frequent and intensive airway suction. Cont meropenem, add vanco with pharmacy to dose, goal is trough level 15. Patient has high risk for worsen or recurrent aspiration b/o unprotected airway and NG tube feeding. Prognosis is poor and highly guarded. - Constitutional Vitals: Temp Pulse Resp BP Pulse Ox 97.3 F L 53 16 141/92 96 01/03/17 10:43 01/03/17 10:43 01/03/17 15:58 01/03/17 10:43 01/03/17 15:58 General appearance: Present: A&O X 0 (somnolent, comatose) - Head Head exam: Present: atraumatic, normocephalic - Eye Eye exam: Present: PERRL, conjuntiva pink, sclera anicteric Pupils: Present: PERRL - Neck Neck exam general surgery: Present: supple, trachea midline. Absent: lymphadenopathy - Respiratory Respiratory exam: Present: CTAB, rhonchi (Diffused rhonchi b/l). Absent: accessory muscle use, rales, wheezes - Cardiovascular Cardiovascular exam: Present: RRR, +S1, +S2. Absent: diastolic murmur, gallop, rubs, systolic murmur - GI/Abdominal GI/Abdominal exam: Present: normal bowel sounds, soft, no peritoneal signs. Absent: distended, tenderness - Extremities Exam Extremities exam: Present: warm, radial pulses palpable and symetrical. Absent : calf tenderness, cyanotic, pedal edema - Neurological Exam Neurological exam: Absent: facial droop - Skin Skin exam: Present: dry, intact, rash (Rashes over b/l legs, neck, and b/l arms) Internal Medicine: Result - Labs CBC & Chem 7: 01/03/17 04:30 01/03/17 04:30 Labs: Short CBC 01/03/17 Range/Units 04:30 WBC 35.2 H* (4.3-11.1) K/mcL Hgb 12.2 (11.5-15.4) g/dL Hct 37.5 (35.3-44.9) % Plt Count 347 (140-400) K/mcL Neutrophils # 32.0 H (1.6-8.9) K/mcL BMP 01/03/17 04:30 Sodium 144 Potassium 3.8 Chloride 106 Carbon Dioxide 28 BUN 43 H Creatinine 0.64 Glucose 117 H Calcium 10.4 - ABG Interpretation ABG results: ABG ABG pH 7.51 pH Units (7.32-7.45) H 12/26/16 04:39 ABG pCO2 33 mmHg (35-45) L 12/26/16 04:39 ABG pO2 111 mmHg (85-104) H 12/26/16 04:39 ABG O2 Saturation 99 % (95-98) H 12/26/16 04:39 PT/INR, D-dimer PT 14.9 Seconds (9.4-12.1) H 12/15/16 05:10 - VTE Documentation of Mechanical Device: Intermittent pneumatic compression device Consult Discharge Plan - Plan Referrals: Cole Chapman Jr, MD [Primary Care Provider] - (web request sent on 01/02/17)
[2017-01-03] MEDS ORDERED: Vancomycin 1,000 MG in D5% in Water 250 ML IVPB SCH (20:00)
[2017-01-03] MEDS: Vancomycin 1,000 MG in D5% in Water 250 ML IVPB SCH (20:55)
[2017-01-03 22:09] LABS: Albumin/Globulin Ratio 0.8 (1.1-2.2); Bilirubin,Direct 0.3 mg/dL (0.0-0.5); Bilirubin,Indirect 0.4 mg/dL (0.0-1.2); Bilirubin,Total 0.7 mg/dL (0.2-1.2); Globulin 3.6 g/dL (2.4-3.5); Total Protein 6.6 g/dL (6.0-8.3)
[2017-01-03 23:29] LABS: Bilirubin,Urine Negative (Negative); Blood,Urine Moderate (Negative); Clarity,Urine Turbid (Clear); Color,Urine Yellow (Yellow); Glucose,Urine (UA) Normal (Normal); Ketones,Urine Negative (Negative); Leukocyte Esterase,Urine Small (Negative); Nitrite,Urine Negative (Negative); Protein,Urine 30 mg/dL (Neg-Trace); Specific Gravity,Urine 1.024 (1.010-1.025); Urobilinogen,Urine Normal (Normal)
[2017-01-03 23:31] LABS: Bacteria,Urine None Seen per hpf (None-Few); RBC,Urine 30-50 per hpf (0-3); Squamous Epithelial Cell,Urine Many per lpf (None-Few); WBC,Urine 30-50 per hpf (0-3)
[2017-01-03 23:38] LABS: Hyaline Casts,Urine Few per lpf (None-Few)
[2017-01-04] MEDS: Ipratropium/Albuterol Neb 3 ML IH SCH ×4 (03:53→22:55)
[2017-01-04] MEDS: *HR* Morphine 2 MG/ML SYRINGE IVP SCH (04:27)
[2017-01-04] MEDS: Vancomycin 1,000 MG in D5% in Water 250 ML IVPB SCH (06:02)
[2017-01-04] MEDS: *HR* Heparin 5,000 UNIT/ML VIAL SQ SCH (06:02)
[2017-01-04 06:46] LABS: Eosinophils % 0.1 %; Mean Platelet Volume 11.7 fL (9.4-12.4); Monocytes % 2.7 %; Nucleated Red Blood Cells 0.1 /100 WBC (0)
[2017-01-04 06:48] LABS: Basophils % 0.1 %; Hematocrit 40.8 % (35.3-44.9); Hemoglobin 12.9 g/dL (11.5-15.4); Lymphocytes # 1.3 K/mcL (0.6-4.6); Lymphocytes % 3.7 %; Mean Corpuscular HGB Conc 31.6 g/dL (31.6-35.5); Mean Corpuscular Hemoglobin 32.7 pg (28.0-33.3); Mean Corpuscular Volume 103.3 fL (83.0-100.0); Monocytes # 0.9 K/mcL (0.0-1.3); Neutrophils # 31.3 K/mcL (1.6-8.9); Platelet Count 231 K/mcL (140-400); Red Blood Count 3.95 M/mcL (3.82-4.97); Red Cell Distribution Width 14.7 % (11.5-14.5); Segmented Neutrophils % 90.4 %
[2017-01-04 07:05] LABS: Platelet Estimate Normal (Normal)
[2017-01-04] MEDS ORDERED: Aminoglycoside Consult 1 EACH MC ONE (08:21)
[2017-01-04] MEDS ORDERED: Acetaminophen 650 MG RECTAL SUPP RC PRN (08:59)
--- NOTE | 2017-01-04 09:04 | Palliative Progress Note ---
Date of Encounter: 01/04/17 Time of Encounter: 09:00 - Assessment and plan (1) Anoxic brain injury Current Visit: Yes Status: Acute (2) Aspiration pneumonia Current Visit: Yes Status: Suspected Assessment and plan: Patient has again aspirated tube feeding. This has been shut off. Refer to goals of care discussion. Qualifiers: Aspiration pneumonia type: unspecified Laterality: bilateral Lung location: unspecified part of lung Qualified Code(s): J69.0 - Pneumonitis due to inhalation of food and vomit (3) Acute and chronic respiratory failure Current Visit: Yes Status: Acute Qualifiers: Respiratory failure complication: hypoxia and hypercapnia Qualified Code(s) : J96.21 - Acute and chronic respiratory failure with hypoxia; J96.22 - Acute and chronic respiratory failure with hypercapnia (4) Cardiac arrest Current Visit: Yes Status: Resolved (5) Counseling regarding advanced care planning and goals of care Current Visit: Yes Status: Acute Assessment and plan: Patient with change in condition this am and appears to have aspirated tube feed. I called to update pt mother, SCOT Aguirre with her change in condition. Told her that she continues to aspirate the tube feeding, even though the rate has been decreased by 50%. Explained that this is likely in her lungs and continuing the feeding is only going to make it difficult for her to breath. Timothy verbalized understanding. I explained that she may not survive long, and we will do our best to keep her comfortable, and she agreed that we will stop everything but comfort medications at this point. She did have concern with the Morphine and ask if we could try a different pain medication, in case it was contributing to her rash. Timothy stated that she was due in court at 1300. I informed her I would try and keep her updated by phone on her condition. D/W primary nurse Rita and Dr. Melgar. (6) Dyspnea Current Visit: Yes Status: Acute Assessment and plan: Will schedule IV Dilaudid to assist with her comfort as she may be at end of life. Allow hourly doses PRN if respiratory distress or further discomfort. (7) Congestion of upper airway Current Visit: Yes Status: Acute Assessment and plan: She did have a small amount of bleeding with suctioning what appears to be tube feeding. These have been stopped. Will add Scopolamine patch and Atropine drops PRN to hopefully decrease the amount of suctioning she may require. - Time Spent With Patient Total time spent is greater than 50% in coordination of care (as documented) at patient's floor/unit and/or counseling patient: Greater than 35 minutes - Subjective Interval history: Patient with severely labored respiration and cyanotic, with secretions from mouth. RR 32-36. Suctioned for a very large amount secretions which appear to be tube feed. This has been turned off. No family present - Constitutional Vitals: Abnormal lab results WBC 34.6 K/mcL (4.3-11.1) H* 01/04/17 06:27 MCV 103.3 fL (83.0-100.0) H 01/04/17 06:27 RDW 14.7 % (11.5-14.5) H 01/04/17 06:27 Metamyelocytes % 4.0 % (0) H 12/14/16 23:35 Promyelocytes % 1.0 % (0) H 12/14/16 00:25 Neutrophils # 31.3 K/mcL (1.6-8.9) H 01/04/17 06:27 Nucleated RBCs/100 WBC 0.1 /100 WBC (0) H 01/04/17 06:27 Hypersegmented Neuts Present (Not Present) A 01/03/17 04:30 Reactive Lymphocytes Present (Not Present) A 12/26/16 03:21 Toxic Granulation Present (Not Present) A 01/03/17 04:30 Toxic Vacuolation Present (Not Present) A 01/03/17 04:30 Clumped Platelets Few (Not Present) A 12/14/16 00:25 Large Platelets Present (Not Present) A 12/26/16 03:21 Polychromasia 1+ (Not Present) A 01/02/17 06:12 PT 14.9 Seconds (9.4-12.1) H 12/15/16 05:10 ABG pH 7.51 pH Units (7.32-7.45) H 12/26/16 04:39 ABG pCO2 33 mmHg (35-45) L 12/26/16 04:39 ABG pO2 111 mmHg (85-104) H 12/26/16 04:39 ABG Total CO2 27.3 mEq/L (20-26) H 12/26/16 04:39 ABG O2 Saturation 99 % (95-98) H 12/26/16 04:39 ABG Base Excess 3.6 mEq/L (-2.0 to 3.0) H 12/26/16 04:39 BUN 43 mg/dL (7-20) H 01/03/17 04:30 BUN/Creatinine Ratio 67 (6-26) H 01/03/17 04:30 Glucose 117 mg/dL (70-99) H 01/03/17 04:30 POC Glucose 102 (58-89) H 01/03/17 18:21 Calculated Osmolality 310 (280-300) H 01/03/17 04:30 AST 45 Units/L (5-34) H 01/03/17 21:17 Troponin I 1.06 ng/mL (0-0.03) H* 12/14/16 05:44 B-Natriuretic Peptide 150 pg/mL (0-100) H 12/13/16 16:45 Albumin 3.0 g/dL (3.5-5.0) L 01/03/17 21:17 Globulin 3.6 g/dL (2.4-3.5) H 01/03/17 21:17 Albumin/Globulin Ratio 0.8 (1.1-2.2) L 01/03/17 21:17 Urine Clarity Turbid (Clear) A 01/03/17 21:22 Urine Protein 30 mg/dL (Neg-Trace) H 01/03/17 21:22 Urine Blood Moderate (Negative) H 01/03/17 21:22 Ur Leukocyte Esterase Small (Negative) H 01/03/17 21:22 Urine Microscopic RBC 30-50 per hpf (0-3) H 01/03/17 21:22 Urine Microscopic WBC 30-50 per hpf (0-3) H 01/03/17 21:22 Ur Squamous Epith Cells Many per lpf (None-Few) H 01/03/17 21:22 Urine Yeast Moderate per hpf (None Seen) H 12/31/16 22:44 Ur Culture Indicated? YES (NO) A 12/31/16 22:44 Stl Norovirus GI/GII PCR DETECTED (Not detect) A 12/13/16 21:44 Urine Opiates Screen Positive ng/mL (Tujgko=036) H 12/13/16 18:20 Acetaminophen < 1.0 mcg/mL (10-30) L 12/13/16 19:30 U Benzodiazepines Scrn Positive ng/mL (Wozddi=876) H 12/13/16 18:20 U Marijuana (THC) Screen Positive ng/mL (Cutoff = 50) H 12/13/16 18:20 Staphylococcus sp PCR DETECTED (Not Detect) A 12/13/16 15:41 mecA-Methicil Res Gene DETECTED (Not Detect) A 12/13/16 15:41 General appearance: Present: severe distress - Respiratory Additional comments: All lung domínguez with course rhonchi. - Cardiovascular Cardiovascular exam: Present: +S1, +S2, tachycardia - GI/Abdominal GI/Abdominal exam: Present: diminished bowel sounds, soft - Additional comments: Engel with yellow urine with sediment - Expanded Exam Female exam: Present: deferred - Extremities Exam Extremities exam: Present: normal capillary refill, normal inspection - Neurological Exam Additional comments: Eyes open. Does not respond to any verbal or tactile stimuli. Does become restless with suctioning. - Skin Skin exam: Present: cyanosis, dry, pallor, warm Palliative Quality Palliative Quality: Screen for Code Status: NA (pt not responsive, awaiting family meeting), Screen for Goals of Care: NA, Screen for Pain: NA, If Pain Regimen Started, Initiate Bowel Regimen: NA, Screen for Nausea/Vomitting: NA Code Status: 12/13/16 18:17 Resuscitation Status: Active [RES] Routine Comment: Resuscitation Status: [id number] Resuscitation Status: Active [RES] Routine Comment: Resuscitation Status: Full Code 01/02/17 13:45 DNR [Resuscitation Status: Active] [RES] Routine Comment: Resuscitation Status: DNR-Comfort Care - Labs CBC & Chem 7: 01/04/17 06:27 01/03/17 04:30 Labs: Laboratory Results - last 24 hr 01/03/17 01/03/17 01/03/17 10:44 18:21 21:17 WBC RBC Hgb Hct MCV MCH MCHC RDW Plt Count MPV Immature Gran % Seg Neutrophils % Lymphocytes % Monocytes % Eosinophils % Basophils % Neutrophils # Lymphocytes # Monocytes # Eosinophils # Basophils # Nucleated RBCs/100 WBC Platelet Estimate POC Glucose 126 H 102 H Total Bilirubin 0.7 Direct Bilirubin 0.3 Indirect Bilirubin 0.4 AST 45 H ALT 35 Alkaline Phosphatase 96 Serum Total Protein 6.6 Albumin 3.0 L Globulin 3.6 H Albumin/Globulin Ratio 0.8 L Amylase 77 Lipase 45 Urine Color Urine Clarity Urine pH Ur Specific [place] Urine Protein Urine Glucose (UA) Urine Ketones Urine Blood Urine Nitrite Urine Bilirubin Urine Urobilinogen Ur Leukocyte Esterase Urine Microscopic RBC Urine Microscopic WBC Ur Squamous Epith Cells Urine Bacteria Hyaline Casts Specimen Rejected 01/03/17 01/04/17 01/04/17 21:22 06:27 07:10 WBC 34.6 H* RBC 3.95 Hgb 12.9 Hct 40.8 MCV 103.3 H MCH 32.7 MCHC 31.6 RDW 14.7 H Plt Count 231 MPV 11.7 Immature Gran % 3.0 Seg Neutrophils % 90.4 Lymphocytes % 3.7 Monocytes % 2.7 Eosinophils % 0.1 Basophils % 0.1 Neutrophils # 31.3 H Lymphocytes # 1.3 Monocytes # 0.9 Eosinophils # 0.0 Basophils # 0.0 Nucleated RBCs/100 WBC 0.1 H Platelet Estimate Normal POC Glucose Total Bilirubin Direct Bilirubin Indirect Bilirubin AST ALT Alkaline Phosphatase Serum Total Protein Albumin Globulin Albumin/Globulin Ratio Amylase Lipase Urine Color Yellow Urine Clarity Turbid A Urine pH 7.0 Ur Specific [place] 1.024 Urine Protein 30 H Urine Glucose (UA) Normal Urine Ketones Negative Urine Blood Moderate H Urine Nitrite Negative Urine Bilirubin Negative Urine Urobilinogen Normal Ur Leukocyte Esterase Small H Urine Microscopic RBC 30-50 H Urine Microscopic WBC 30-50 H Ur Squamous Epith Cells Many H Urine Bacteria None Seen Hyaline Casts Few Specimen Rejected Hemolyzed - ABG Interpretation ABG results: ABG ABG pH 7.51 pH Units (7.32-7.45) H 12/26/16 04:39 ABG pCO2 33 mmHg (35-45) L 12/26/16 04:39 ABG pO2 111 mmHg (85-104) H 12/26/16 04:39 ABG O2 Saturation 99 % (95-98) H 12/26/16 04:39 PT/INR, D-dimer PT 14.9 Seconds (9.4-12.1) H 12/15/16 05:10 Consult Discharge Plan - Plan Referrals: Cole Chapman Jr, MD [Primary Care Provider] - (web request sent on 01/02/17)
[2017-01-04] MEDS: *HR* HYDROmorphone (PF) 1 MG/ML SYRINGE IVP PRN (09:33)
[2017-01-04] MEDS: Scopolamine Patch 1.5 MG PATCH.TD72 TD SCH (09:33)
[2017-01-04] MEDS: Dexamethasone 4 MG/ML VIAL IVP SCH ×2 (09:36→20:21)
[2017-01-04] MEDS: Atropine Sulfate 1% 40 DROP/2 ML BOTTLE SL PRN (09:44)
[2017-01-04] MEDS: Bisacodyl 10 MG RECTAL SUPPOSITORY RC SCH (09:44)
[2017-01-04] MEDS: Miconazole 2% cream 118 GM TUBE TP SCH ×2 (09:45→20:21)
[2017-01-04] MEDS: Nystatin POWDER 30 GM BOTTLE TP SCH ×3 (09:46→20:21)
--- NOTE | 2017-01-04 10:33 | Infectious Disease Progress No ---
Date of Encounter: 01/04/17 Time of Encounter: 10:31 - Assessment and Plan (1) Septic shock Current Visit: Yes Status: Acute On admission, the patient had tachycardia, leukocytosis, and fever with Tmax of 102. The patient developed hypotension requiring a short course of levophed. Lactic acid was normal. Blood cultures grew S. epi 1/2 sets that was likely a contaminant. Resolved. The patient no longer has hypotension requiring vasopressors. Likely secondary to bilateral pneumonia. (2) Leukocytosis Current Visit: Yes Status: Acute WBC markedly elevated at 35.2 with neutrophilic predominance. Slightly improved this morning. Etiology of leukocytosis unclear at this point. The patient has been on IV Meropenem x 10 days and continues to have an elevated WBC. Given the patient's vegetative state, I am unable to get any information from the patient. Case discussed with the Palliative Care Team. Prognosis very poor. Family has agreed to stop further life saving/sustaining measures and transition the patient to comfort care only. Antibiotics have been discontinued. No further workup to identify the etiology of the patient's leukocytosis will be pursued. No further recommendations from the ID team. Will sign off. Please re-consult if new needs arise. Qualifiers: Leukocytosis type: unspecified Qualified Code(s): D72.829 - Elevated white blood cell count, unspecified (3) Rash Current Visit: Yes Status: Acute Etiology unclear. Drug rash vs. other. Dermatology consult deferred at this time. Continue comfort measures. (4) Aspiration pneumonia Current Visit: No Status: Resolved CT of the chest completed in the ED revealed bilateral PNA. Causative organism E. coli per sputum culture, but concern for aspiration given the patient's history of dysphagia and non-compliance with PEG tube and recommended NPO status. Additionally, the patient has a history of drug use and was found unresponsive at home which puts her at high risk for aspiration as well. Treated with 7 days of IV cefepime previously. Repeat sputum culture obtained 12/23/16 grew E. coli again, but repeat CXR did not show infiltrate. The patient's mental status remains altered. There is a high likelihood that she is continuing to aspirate. Large amount of tube feed was suctioned from the patient's upper airway this morning despite turning tube feeds down to 25ml/hr. Qualifiers: Aspiration pneumonia type: unspecified Laterality: bilateral Lung location: unspecified part of lung Qualified Code(s): J69.0 - Pneumonitis due to inhalation of food and vomit (5) Urinary tract infection Current Visit: Yes Status: Resolved Urine culture obtained 12/13/16 was positive for E. coli. The patient was treated with a 7 day course of IV cefepime. Repeat urine culture 12/25/16 was negative. Qualifiers: Urinary tract infection type: site unspecified Hematuria presence: without hematuria Qualified Code(s): N39.0 - Urinary tract infection, site not specified (6) Norovirus Current Visit: Yes Status: Resolved Noted on admission. The patient continues to have loose stools, but likely secondary to tube feeds. (7) Cardiac arrest Current Visit: Yes Status: Resolved On admission. Required defibrillation x 2, amiodarone, and epinephrine before ROSC. (8) Respiratory failure requiring intubation Current Visit: Yes Status: Acute Secondary to bilateral pneumonia and cardiac arrest. Extubated 12/26/16. 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 (10) Anoxic brain injury Current Visit: Yes Status: Acute CT of the head negative. Neurology consulted. Likely persistant vegetative state with little chance of recovery. 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 Follows with [facility] Dr. Allison. - Subjective Interval history: Patient seen and examined. Patient's status has continued to decline overnight. Discussed the case at length with CHENCHO Alexander with the Palliative Care Team. States large amount of tube feed suctioned from the patient's upper airway this morning despite turning tube feeds down. States she discussed the patient's change in status with the patient's mother who has agreed to terminate further life saving/sustaining treatment and agrees to comfort measures only. Infect Dis PN-Objective Data - Labs CBC & Chem 7: 01/04/17 06:27 01/04/17 07:39 Labs: Laboratory Results - last 24 hr 01/03/17 01/03/17 01/03/17 10:44 18:21 21:17 WBC RBC Hgb Hct MCV MCH MCHC RDW Plt Count MPV Immature Gran % Seg Neutrophils % Lymphocytes % Monocytes % Eosinophils % Basophils % Neutrophils # Lymphocytes # Monocytes # Eosinophils # Basophils # Nucleated RBCs/100 WBC Platelet Estimate Smear Path Review See Below POC Glucose 126 H 102 H Total Bilirubin Direct Bilirubin Indirect Bilirubin AST ALT Alkaline Phosphatase Serum Total Protein Albumin Globulin Albumin/Globulin Ratio Amylase Lipase Urine Color Urine Clarity Urine pH Ur Specific [place] Urine Protein Urine Glucose (UA) Urine Ketones Urine Blood Urine Nitrite Urine Bilirubin Urine Urobilinogen Ur Leukocyte Esterase Urine Microscopic RBC Urine Microscopic WBC Ur Squamous Epith Cells Urine Bacteria Hyaline Casts Specimen Rejected 01/03/17 01/03/17 01/04/17 21:17 21:22 06:27 WBC 34.6 H* RBC 3.95 Hgb 12.9 Hct 40.8 MCV 103.3 H MCH 32.7 MCHC 31.6 RDW 14.7 H Plt Count 231 MPV 11.7 Immature Gran % 3.0 Seg Neutrophils % 90.4 Lymphocytes % 3.7 Monocytes % 2.7 Eosinophils % 0.1 Basophils % 0.1 Neutrophils # 31.3 H Lymphocytes # 1.3 Monocytes # 0.9 Eosinophils # 0.0 Basophils # 0.0 Nucleated RBCs/100 WBC 0.1 H Platelet Estimate Normal Smear Path Review POC Glucose Total Bilirubin 0.7 Direct Bilirubin 0.3 Indirect Bilirubin 0.4 AST 45 H ALT 35 Alkaline Phosphatase 96 Serum Total Protein 6.6 Albumin 3.0 L Globulin 3.6 H Albumin/Globulin Ratio 0.8 L Amylase 77 Lipase 45 Urine Color Yellow Urine Clarity Turbid A Urine pH 7.0 Ur Specific [place] 1.024 Urine Protein 30 H Urine Glucose (UA) Normal Urine Ketones Negative Urine Blood Moderate H Urine Nitrite Negative Urine Bilirubin Negative Urine Urobilinogen Normal Ur Leukocyte Esterase Small H Urine Microscopic RBC 30-50 H Urine Microscopic WBC 30-50 H Ur Squamous Epith Cells Many H Urine Bacteria None Seen Hyaline Casts Few Specimen Rejected 01/04/17 07:10 WBC RBC Hgb Hct MCV MCH MCHC RDW Plt Count MPV Immature Gran % Seg Neutrophils % Lymphocytes % Monocytes % Eosinophils % Basophils % Neutrophils # Lymphocytes # Monocytes # Eosinophils # Basophils # Nucleated RBCs/100 WBC Platelet Estimate Smear Path Review POC Glucose Total Bilirubin Direct Bilirubin Indirect Bilirubin AST ALT Alkaline Phosphatase Serum Total Protein Albumin Globulin Albumin/Globulin Ratio Amylase Lipase Urine Color Urine Clarity Urine pH Ur Specific [place] Urine Protein Urine Glucose (UA) Urine Ketones Urine Blood Urine Nitrite Urine Bilirubin Urine Urobilinogen Ur Leukocyte Esterase Urine Microscopic RBC Urine Microscopic WBC Ur Squamous Epith Cells Urine Bacteria Hyaline Casts Specimen Rejected Hemolyzed Cultures: Cultures 12/31/16 22:44 Urine Culture - Final Urine,Clean Catch Yeast Species Laine species, not ablicans 12/31/16 10:36 Blood Culture - Preliminary Peripheral Venipuncture No growth. 12/31/16 10:30 Blood Culture - Preliminary Peripheral Venipuncture No growth. 12/23/16 08:06 Blood Culture - Final Peripheral Venipuncture No growth. 12/23/16 08:08 Blood Culture - Final Peripheral Venipuncture No growth. 12/25/16 03:40 Urine Culture - Final Urine,Catheterized No growth. 12/23/16 20:52 Sputum Culture - Final Sputum Escherichia coli 12/15/16 09:30 Blood Culture - Final Central Venous Catheter No growth. 12/15/16 09:36 Blood Culture - Final Peripheral Venipuncture No growth. 12/15/16 09:36 Blood Culture - Final Peripheral Venipuncture No growth. 12/14/16 04:45 Sputum Culture - Final Sputum Escherichia coli 12/14/16 09:05 Legionella Antigen - Final Urine,[place] Streptococcus pneumoniae Antigen (M - Final Serology 01/03/17 12/31/16 12/14/16 Range/Units 21:22 22:44 09:05 Urine Color Yellow Yellow (Yellow) Urine Clarity Turbid A Cloudy A (Clear) Urine pH 7.0 6.5 (5.0-8.0) pH Units Ur Specific [place] 1.024 1.029 H (1.010-1.025) Urine Protein 30 H 30 H (Neg-Trace) mg/dL Urine Glucose (UA) Normal Normal (Normal) mg/dL Urine Ketones Negative Negative (Negative) mg/dL Urine Blood Moderate H Negative (Negative) Urine Nitrite Negative Negative (Negative) Urine Bilirubin Negative Negative (Negative) Urine Urobilinogen Normal Normal (Normal) mg/dL Ur Leukocyte Esterase Small H Trace H (Negative) Urine Microscopic RBC 30-50 H Test Not Performed Urine Microscopic WBC 30-50 H 15-30 H (0-3) per hpf Ur Squamous Epith Cells Many H Many H (None-Few) per lpf Urine Bacteria None Seen None Seen (None-Few) per hpf Hyaline Casts Few None Seen (None-Few) per lpf Urine Yeast Moderate H (None Seen) per hpf Ur Culture Indicated? YES A (NO) Urine Sodium 121.0 mEq/L Urine Potassium 45.9 mEq/L Urine Chloride 146 mEq/L Urine Test (Negative) Stl C. cayetanensis PCR (Not detect) Stool Rotavirus A PCR (Not detect) Stl Adenov F 40/41 PCR (Not detect) Stool Astrovirus (PCR) (Not detect) Stool Campylobacter PCR (Not detect) Stl C. diff Tox A/B PCR (Not detect) Stool Cryptosporidium PCR (Not detect) Stl Sh Tox Pr E STEC PCR (Not detect) Stool E coli O157 PCR (Not detect) Stl Enterotoxigenic E PCR (Not detect) Stool EPEC (PCR) (Not detect) Stool EAEC (PCR) (Not detect) Stl E. histolytica PCR (Not detect) Stool Giardia Lamblia PCR (Not detect) Stool Salmonella PCR (Not detect) Stool Sapovirus (PCR) (Not detect) Stl P. shigelloides PCR (Not detect) Stl Shigella/EIEC PCR (Not detect) St Y.enterocolitica PCR (Not detect) Stool Vibrio (PCR) (Not detect) Stl Vibrio cholerae PCR (Not detect) Stl Norovirus GI/GII PCR (Not detect) Stl GI Panel (PCR) Com Chlamy pneumoniae PCR (Not Detect) Adenovirus (PCR) (Not Detect) B. pertussis DNA (PCR) (Not Detect) Coronavirus OC43 (PCR) (Not Detect) Coronavirus HKU1 (PCR) (Not Detect) Coronavirus 229E (PCR) (Not Detect) Coronavirus NL63 (PCR) (Not Detect) Human Metapneumovirus (Not Detect) Influenza A (H1) PCR (Not Detect) Influ A (H1N1/09) PCR (Not Detect) Influenza A (H3) PCR (Not Detect) Influenza A Untype (PCR) (Not Detect) Influenza Type B (PCR) (Not Detect) M.pneumoniae DNA (PCR) (Not Detect) Parainfluenza 1 (PCR) (Not Detect) Parainfluenza 2 (PCR) (Not Detect) Parainfluenza 3 (PCR) (Not Detect) Parainfluenza 4 (PCR) (Not Detect) RSV (PCR) (Not Detect) Entero/Rhino (PCR) (Not Detect) 12/13/16 12/13/16 12/13/16 Range/Units 21:44 18:20 18:15 Urine Color (Yellow) Urine Clarity (Clear) Urine pH (5.0-8.0) pH Units Ur Specific [place] (1.010-1.025) Urine Protein (Neg-Trace) mg/dL Urine Glucose (UA) (Normal) mg/dL Urine Ketones (Negative) mg/dL Urine Blood (Negative) Urine Nitrite (Negative) Urine Bilirubin (Negative) Urine Urobilinogen (Normal) mg/dL Ur Leukocyte Esterase (Negative) Urine Microscopic RBC Urine Microscopic WBC (0-3) per hpf Ur Squamous Epith Cells (None-Few) per lpf Urine Bacteria (None-Few) per hpf Hyaline Casts (None-Few) per lpf Urine Yeast (None Seen) per hpf Ur Culture Indicated? (NO) Urine Sodium mEq/L Urine Potassium mEq/L Urine Chloride mEq/L Urine Test Negative (Negative) Stl C. cayetanensis PCR Not detected (Not detect) Stool Rotavirus A PCR Not detected (Not detect) Stl Adenov F 40/41 PCR Not detected (Not detect) Stool Astrovirus (PCR) Not detected (Not detect) Stool Campylobacter PCR Not detected (Not detect) Stl C. diff Tox A/B PCR Not detected (Not detect) Stool Cryptosporidium PCR Not detected (Not detect) Stl Sh Tox Pr E STEC PCR Not detected (Not detect) Stool E coli O157 PCR Not detected (Not detect) Stl Enterotoxigenic E PCR Not detected (Not detect) Stool EPEC (PCR) Not detected (Not detect) Stool EAEC (PCR) Not detected (Not detect) Stl E. histolytica PCR Not detected (Not detect) Stool Giardia Lamblia PCR Not detected (Not detect) Stool Salmonella PCR Not detected (Not detect) Stool Sapovirus (PCR) Not detected (Not detect) Stl P. shigelloides PCR Not detected (Not detect) Stl Shigella/EIEC PCR Not detected (Not detect) St Y.enterocolitica PCR Not detected (Not detect) Stool Vibrio (PCR) Not detected (Not detect) Stl Vibrio cholerae PCR Not detected (Not detect) Stl Norovirus GI/GII PCR DETECTED A (Not detect) Stl GI Panel (PCR) Com See below Chlamy pneumoniae PCR Not Detected (Not Detect) Adenovirus (PCR) Not Detected (Not Detect) B. pertussis DNA (PCR) Not Detected (Not Detect) Coronavirus OC43 (PCR) Not Detected (Not Detect) Coronavirus HKU1 (PCR) Not Detected (Not Detect) Coronavirus 229E (PCR) Not Detected (Not Detect) Coronavirus NL63 (PCR) Not Detected (Not Detect) Human Metapneumovirus Not Detected (Not Detect) Influenza A (H1) PCR Not Detected (Not Detect) Influ A (H1N1/09) PCR Not Detected (Not Detect) Influenza A (H3) PCR Not Detected (Not Detect) Influenza A Untype (PCR) Not Detected (Not Detect) Influenza Type B (PCR) Not Detected (Not Detect) M.pneumoniae DNA (PCR) Not Detected (Not Detect) Parainfluenza 1 (PCR) Not Detected (Not Detect) Parainfluenza 2 (PCR) Not Detected (Not Detect) Parainfluenza 3 (PCR) Not Detected (Not Detect) Parainfluenza 4 (PCR) Not Detected (Not Detect) RSV (PCR) Not Detected (Not Detect) Entero/Rhino (PCR) Not Detected (Not Detect) Exam - Constitutional Vitals: Temp Pulse Resp BP Pulse Ox 98.6 F 101 28 167/117 94 01/04/17 06:58 01/04/17 06:58 01/04/17 06:58 01/04/17 06:58 01/04/17 06:58 General appearance: average body habitus, no acute distress, no febrile, no cooperative - Head Head exam: Present: atraumatic, normal inspection, normocephalic - Eye Eye exam: Present: normal appearance Additional comments: Corneal reflex absent this morning. Pupils dilated and unresponsive. - ENT ENT exam: Present: mucous membranes moist - Neck Neck exam: Present: normal inspection - Respiratory Respiratory exam: Present: rales, rhonchi. Absent: respiratory distress, wheezes, tachypnea - Cardiovascular Cardiovascular exam: Present: +S1, +S2, tachycardia - GI/Abdominal GI/Abdominal exam: Present: normal bowel sounds, soft. Absent: distended, tenderness Additional comments: Engel catheter noted to be draining clear, dark yellow urine. - Extremities Exam Extremities exam: Absent: joint swelling, pedal edema, tenderness Additional comments: Diffuse maculopapular rash noted to the BLE, BUE, and trunk. - Neurological Exam Neurological exam: Absent: altered (Unresponsive.) - Skin Skin exam: Present: rash (Diffuse maculopapular rash noted to the extremities x 4 and intertriginous folds.) - VTE Documentation of Mechanical Device: Intermittent pneumatic compression device Consult Discharge Plan - Plan Referrals: Cole Chapman Jr, MD [Primary Care Provider] - (web request sent on 01/02/17) - Attending Attestation I examined this patient and my medical decision-making was reviewed with the 4TH GR[employer] MATH TEACHER/PA/Advanced Practice Nurse/Resident Physician. I agree with the documented findings, disposition and treatment plan as described except to the extent set forth below. Discussed with the hospice service last night and extending to them that we can only treat with antibiotics for able to identify the source. The family is resistant to getting any kind of imaging we need to stop antibiotics and observe. His morning patient had significant aspiration. Repeat discussion with the family and they decided to stop all antibiotics and do comfort measures only. No further recommendations this time, we will sign off the case. Prognosis overall guarded
[2017-01-04 11:44] LABS: BUN/Creatinine Ratio 59 (6-26); Blood Urea Nitrogen 36 mg/dL (7-20); Calcium 10.5 mg/dL (8.6-10.8); Carbon Dioxide 27 mEq/L (19-29); Chloride 104 mEq/L (98-109); Glucose 118 mg/dL (70-99); Osmolality,Calculated 303 (280-300); Potassium 4.1 mEq/L (3.5-4.5); Sodium 142 mEq/L (136-145); eGFR For African Americans > 60 (> 60); eGFR For Non-African Americans > 60 (> 60)
[2017-01-04] MEDS: *HR* HYDROmorphone (PF) 1 MG/ML SYRINGE IVP SCH ×3 (12:29→20:21)
--- NOTE | 2017-01-04 12:50 | Event Note ---
Date of Encounter: 01/04/17 Time of Encounter: 12:30 Updated pt mother via telephone regarding her clinical status. Timothy did not recall much of our conversation this am regarding discontinuing the NG and feedings. She began yelling "You are killing my daughter and starving her to !" Again discussed that this am I was suctioning copious amounts tube feeding out of her airway, she was gurgling, cyanotic and having difficulty breathing and now that it has stopped, she is actually breathing better and looks more comfortable. Attempted to educate that continuing feeding at this point will only make her more uncomfortable and she will drown in the feeding. She did verbalize understanding at that point.
--- NOTE | 2017-01-04 17:41 | Internal Med Progress Note ---
Date of Encounter: 01/04/17 Time of Encounter: 10:00 - Assessment and plan (1) Aspiration pneumonia Current Visit: Yes Status: Suspected Assessment and plan: Suspected, secondary to substance abuse and having been found unresponsive at home. One out of 2 initial blood cultures grew staph epidermidis and repeat blood cultures show no growth. Sputum culture grows Escherichia coli. Continue IV meropenem to complete a 14 day course (Day 9 today). Supportive care and supplemental oxygen. Continues to require 4 L/m oxygen via Venti mask. Discussed with palliative care, patient requires copious nursing case with frequent suctioning and clearing of nasal secretions as she has nasogastric tube in 1 nostril and the other is currently clogged with secretions. - ID consult appreciated, will follow recommendations - Patient is at high risk of worsen or recurrent aspiration because of unprotected airway. - WBC still high on the long-term antibiotic use, prognosis is poor and highly guarded. - Continue supportive treatment. Pt is at high risk because severe lung infection and anoxic brain injury which leads to nonresponsive status. Qualifiers: Aspiration pneumonia type: unspecified Laterality: bilateral Lung location: unspecified part of lung Qualified Code(s): J69.0 - Pneumonitis due to inhalation of food and vomit (2) Acute and chronic respiratory failure Current Visit: Yes Status: Acute Assessment and plan: Due to aspiration pneumonia. Will continue supportive treatment. Continuous frequent suction to remove the secretion. Cont aspiration precaution. Pt is DNI and refuse tracheostomy. Qualifiers: Respiratory failure complication: hypoxia and hypercapnia Qualified Code(s) : J96.21 - Acute and chronic respiratory failure with hypoxia; J96.22 - Acute and chronic respiratory failure with hypercapnia (3) DVT prophylaxis Current Visit: No Status: Acute Assessment and plan: Heparin subcutaneously (4) Cardiac arrest Current Visit: Yes Status: Resolved Assessment and plan: Happened on admission. S/P ACLS, still nonresponsive, cont supportive treatment (5) Anoxic brain injury Current Visit: Yes Status: Acute Assessment and plan: Suspected anoxic brain injury secondary to cardiac arrest. Patient has no purposeful movements, nonverbal. Palliative care team is on board and patient does have a complex social situation. Medical power of health care attorney seems to be her mother. CODE STATUS is changed to DNR/DNI but no decision has been made regarding hospice/palliative care. Patient cannot have any oral intake with her encephalopathy, which is not expected to improve anytime soon. She would require PEG tube placement for continued nutrition. Surgery consult noted, patient's mother currently does not give consent for PEG placement and patient also continues to require 8-10 L/m oxygen via Ventimask and would not be able to tolerate sedation. 12/30- patient is noted to be in respiratory distress with tachypnea, sinus tachycardia, continues to require at least 15 L/m oxygen via Ventimask. Patient 's family initially requested for transfer to [facility] for higher level of care. However, currently requested to hold off on the transfer. Patient continues to have poor prognosis while the family is struggling to make a decision regarding her long-term care needs. As of today, patient's mother requests for palliative care medications along with tube feeds. 12/31- patient is noted to be tachycardic and tachypneic with worsening leukocytosis. She responds to when necessary IV morphine. Continue supportive care and supplemental oxygen. Palliative care team on board, family meeting with patient's mother set up for 1430 tomorrow. 01/01 - Family meeting hold with pt's mother, no conclusion yet. Pt's mother will talk with pt's father and other family member and give further decision. Continue current treatment at this point. 01/02 - Pt's mother was contacted by palliative care team, details please refer palliative care note. Briefly, still cont IV abx and NG tube feeding, wants comfort management, refuse PEG tube and tracheostomy. Will treat pt as family's wishes. 01/03 - Cont supportive treatment and treat underlying infection. 01/04 - Cont supportive treatment and comfort treatment per family's wish. (6) Fungal dermatitis Current Visit: Yes Status: Acute Assessment and plan: Patient is noted to be having erythematous maculopapular rash involving patient' s neck, entire back, flexor medial surfaces of upper and lower extremities. She is also noted to have skin sloughing in skin folds including bilateral axillary, inguinal and sacral areas. Wound care consult. Will continue nystatin powder and local wound care with barrier cream. (7) Glioblastoma Current Visit: Yes Status: Acute Assessment and plan: Hx of glioblastoma. S/P radiation therapy. (8) Urinary tract infection Current Visit: Yes Status: Resolved Assessment and plan: Urine culture grows Escherichia coli on 12/13/16, sensitive to meropenem, repeated urine culture negative on 12/25/16. On 12/31/16, urine culture shows Yeast species. Will repeat urine culture. Qualifiers: Urinary tract infection type: site unspecified Hematuria presence: without hematuria Qualified Code(s): N39.0 - Urinary tract infection, site not specified (9) Norovirus Current Visit: Yes Status: Resolved Assessment and plan: Noted on admission. The patient continues to have loose stools, but likely secondary to tube feeds. Will check C. diff given the patient's long antibiotic exposure and increased WBC count. 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 Cont Dexamethasone 3mg ivp BID. (11) Rash Current Visit: Yes Status: Acute Assessment and plan: Etiology unclear. Fungal infection vs Drug rash. Cont wound care. - Time Spent With Patient Greater than 35 minutes - Subjective Interval history: Patient is a 36-year-old female admitted for aspiration pneumonia and cardiac arrest in emergency room. Her past medical history is significant for pontine glioma status post radiation therapy, cigarette smoking, aspiration pneumonia, dysphagia, COPD on 4 L home oxygen, multiple drug abuse. Patient was treated in ICU initially but mental status not improve although aggressive treatment. Family agreed to change code status to DNR/DNI, patient was extubated and moved to regular floor. Patient was seen and examined today, still nonresponsive, has large amount mouth secretion today with severe SOB, tube feeding has to be on hold. Discussed the case at length with CHENCHO Alexander with the Palliative Care Team. States large amount of tube feed suctioned from the patient's upper airway this morning despite turning tube feeds down. States she discussed the patient's POA regarding change in status and patient's mother has agreed to terminate further life saving/sustaining treatment and agrees to comfort measures only. - Constitutional Vitals: Temp Pulse Resp BP Pulse Ox 98.6 F 101 14 167/117 93 01/04/17 06:58 01/04/17 06:58 01/04/17 15:54 01/04/17 06:58 01/04/17 15:54 General appearance: Present: A&O X 0 (somnolent, comatose) - Head Head exam: Present: atraumatic, normocephalic - Eye Eye exam: Present: PERRL, conjuntiva pink, sclera anicteric Pupils: Present: PERRL - Neck Neck exam general surgery: Present: supple, trachea midline. Absent: lymphadenopathy - Respiratory Respiratory exam: Present: CTAB, respiratory distress, rhonchi (Bilaterally). Absent: accessory muscle use, rales, wheezes - Cardiovascular Cardiovascular exam: Present: RRR, +S1, +S2. Absent: diastolic murmur, gallop, rubs, systolic murmur - GI/Abdominal GI/Abdominal exam: Present: normal bowel sounds, soft, no peritoneal signs. Absent: distended, tenderness - Extremities Exam Extremities exam: Present: warm, radial pulses palpable and symetrical. Absent : calf tenderness, cyanotic, pedal edema - Neurological Exam Neurological exam: Absent: facial droop - Skin Skin exam: Present: dry, intact, rash (On both legs, neck, and both arms.) Internal Medicine: Result - Labs CBC & Chem 7: 01/04/17 06:27 01/04/17 07:39 Labs: Short CBC 01/04/17 Range/Units 06:27 WBC 34.6 H* (4.3-11.1) K/mcL Hgb 12.9 (11.5-15.4) g/dL Hct 40.8 (35.3-44.9) % Plt Count 231 (140-400) K/mcL Neutrophils # 31.3 H (1.6-8.9) K/mcL BMP 01/04/17 07:39 Sodium 142 Potassium 4.1 Chloride 104 Carbon Dioxide 27 BUN 36 H Creatinine 0.61 Glucose 118 H Calcium 10.5 Liver Function 01/03/17 Range/Units 21:17 Total Bilirubin 0.7 (0.2-1.2) mg/dL Direct Bilirubin 0.3 (0.0-0.5) mg/dL AST 45 H (5-34) Units/L ALT 35 (0-55) Units/L Alkaline Phosphatase 96 (38-126) Units/L Albumin 3.0 L (3.5-5.0) g/dL Urine 01/03/17 Range/Units 21:22 Urine Color Yellow (Yellow) Urine Clarity Turbid A (Clear) Urine pH 7.0 (5.0-8.0) pH Units Ur Specific [place] 1.024 (1.010-1.025) Urine Protein 30 H (Neg-Trace) mg/dL Urine Glucose (UA) Normal (Normal) mg/dL - ABG Interpretation ABG results: ABG ABG pH 7.51 pH Units (7.32-7.45) H 12/26/16 04:39 ABG pCO2 33 mmHg (35-45) L 12/26/16 04:39 ABG pO2 111 mmHg (85-104) H 12/26/16 04:39 ABG O2 Saturation 99 % (95-98) H 12/26/16 04:39 PT/INR, D-dimer PT 14.9 Seconds (9.4-12.1) H 12/15/16 05:10 - VTE Documentation of Mechanical Device: Intermittent pneumatic compression device Consult Discharge Plan - Plan Referrals: Cole Chapman Jr, MD [Primary Care Provider] - (web request sent on 01/02/17)
[2017-01-05] MEDS: *HR* HYDROmorphone (PF) 1 MG/ML SYRINGE IVP SCH ×6 (00:54→22:02)
[2017-01-05] MEDS: Ipratropium/Albuterol Neb 3 ML IH SCH ×4 (03:53→22:45)
[2017-01-05 03:59] LABS: Monocytes % 2.4 %; Nucleated Red Blood Cells 0.1 /100 WBC (0)
[2017-01-05 04:00] LABS: Basophils % 0.4 %; Hematocrit 40.2 % (35.3-44.9); Hemoglobin 13.2 g/dL (11.5-15.4); Immature Granulocytes % 2.9 % (0-4); Lymphocytes # 1.4 K/mcL (0.6-4.6); Lymphocytes % 3.5 %; Mean Corpuscular HGB Conc 32.8 g/dL (31.6-35.5); Mean Corpuscular Hemoglobin 31.8 pg (28.0-33.3); Mean Corpuscular Volume 96.9 fL (83.0-100.0); Mean Platelet Volume 11.8 fL (9.4-12.4); Monocytes # 0.9 K/mcL (0.0-1.3); Neutrophils # 35.7 K/mcL (1.6-8.9); Platelet Count 294 K/mcL (140-400); Red Blood Count 4.15 M/mcL (3.82-4.97); Red Cell Distribution Width 14.6 % (11.5-14.5); Segmented Neutrophils % 90.8 %
[2017-01-05 04:10] LABS: BUN/Creatinine Ratio 62 (6-26); Blood Urea Nitrogen 41 mg/dL (7-20); Calcium 11.2 mg/dL (8.6-10.8); Carbon Dioxide 28 mEq/L (19-29); Chloride 101 mEq/L (98-109); Glucose 105 mg/dL (70-99); Osmolality,Calculated 304 (280-300); Sodium 142 mEq/L (136-145); eGFR For African Americans > 60 (> 60); eGFR For Non-African Americans > 60 (> 60)
[2017-01-05 04:23] LABS: Potassium 4.5 mEq/L (3.5-4.5)
[2017-01-05 05:28] LABS: Basophils # 0.2 K/mcL (0.0-0.2)
[2017-01-05 05:43] LABS: Platelet Estimate Normal (Normal)
[2017-01-05] MEDS: Dexamethasone 4 MG/ML VIAL IVP SCH ×2 (09:20→22:01)
[2017-01-05] MEDS: Miconazole 2% cream 118 GM TUBE TP SCH ×2 (09:21→22:02)
[2017-01-05] MEDS: Bisacodyl 10 MG RECTAL SUPPOSITORY RC SCH (09:21)
[2017-01-05] MEDS: Nystatin POWDER 30 GM BOTTLE TP SCH ×3 (09:21→22:03)
--- NOTE | 2017-01-05 09:38 | Palliative Progress Note ---
Date of Encounter: 01/05/17 Time of Encounter: 09:15 - Assessment and plan (1) Anoxic brain injury Current Visit: Yes Status: Acute Assessment and plan: Patient is now DNRCC - Comfort care. Patient receiving comfort medications. Appears comfortable. No moaning or facial grimacing when turned. Continue to update mother and provide support. (2) Counseling regarding advanced care planning and goals of care Current Visit: No Status: Acute Assessment and plan: Patient is DNRCC - Comfort Care. Goals are for comfort with medications and provide support. 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 Patient nonverbal, doesn't follow commands. - Constitutional Vitals: Abnormal lab results WBC 39.3 K/mcL (4.3-11.1) H* 01/05/17 04:18 RDW 14.6 % (11.5-14.5) H 01/05/17 04:18 Metamyelocytes % 4.0 % (0) H 12/14/16 23:35 Promyelocytes % 1.0 % (0) H 12/14/16 00:25 Neutrophils # 35.7 K/mcL (1.6-8.9) H 01/05/17 04:18 Nucleated RBCs/100 WBC 0.1 /100 WBC (0) H 01/05/17 04:18 Hypersegmented Neuts Present (Not Present) A 01/03/17 04:30 Reactive Lymphocytes Present (Not Present) A 12/26/16 03:21 Toxic Granulation Present (Not Present) A 01/03/17 04:30 Toxic Vacuolation Present (Not Present) A 01/03/17 04:30 Clumped Platelets Few (Not Present) A 12/14/16 00:25 Large Platelets Present (Not Present) A 12/26/16 03:21 Polychromasia 1+ (Not Present) A 01/02/17 06:12 PT 14.9 Seconds (9.4-12.1) H 12/15/16 05:10 ABG pH 7.51 pH Units (7.32-7.45) H 12/26/16 04:39 ABG pCO2 33 mmHg (35-45) L 12/26/16 04:39 ABG pO2 111 mmHg (85-104) H 12/26/16 04:39 ABG Total CO2 27.3 mEq/L (20-26) H 12/26/16 04:39 ABG O2 Saturation 99 % (95-98) H 12/26/16 04:39 ABG Base Excess 3.6 mEq/L (-2.0 to 3.0) H 12/26/16 04:39 BUN 41 mg/dL (7-20) H 01/05/17 03:22 BUN/Creatinine Ratio 62 (6-26) H 01/05/17 03:22 Glucose 105 mg/dL (70-99) H 01/05/17 03:22 POC Glucose 97 (58-89) H 01/04/17 20:49 Calculated Osmolality 304 (280-300) H 01/05/17 03:22 Calcium 11.2 mg/dL (8.6-10.8) H 01/05/17 03:22 AST 45 Units/L (5-34) H 01/03/17 21:17 Troponin I 1.06 ng/mL (0-0.03) H* 12/14/16 05:44 B-Natriuretic Peptide 150 pg/mL (0-100) H 12/13/16 16:45 Albumin 3.0 g/dL (3.5-5.0) L 01/03/17 21:17 Globulin 3.6 g/dL (2.4-3.5) H 01/03/17 21:17 Albumin/Globulin Ratio 0.8 (1.1-2.2) L 01/03/17 21:17 Urine Clarity Turbid (Clear) A 01/03/17 21:22 Urine Protein 30 mg/dL (Neg-Trace) H 01/03/17 21:22 Urine Blood Moderate (Negative) H 01/03/17 21:22 Ur Leukocyte Esterase Small (Negative) H 01/03/17 21:22 Urine Microscopic RBC 30-50 per hpf (0-3) H 01/03/17 21:22 Urine Microscopic WBC 30-50 per hpf (0-3) H 01/03/17 21:22 Ur Squamous Epith Cells Many per lpf (None-Few) H 01/03/17 21:22 Urine Yeast Moderate per hpf (None Seen) H 12/31/16 22:44 Ur Culture Indicated? YES (NO) A 12/31/16 22:44 Stl Norovirus GI/GII PCR DETECTED (Not detect) A 12/13/16 21:44 Urine Opiates Screen Positive ng/mL (Vzhksc=630) H 12/13/16 18:20 Acetaminophen < 1.0 mcg/mL (10-30) L 12/13/16 19:30 U Benzodiazepines Scrn Positive ng/mL (Iekwig=635) H 12/13/16 18:20 U Marijuana (THC) Screen Positive ng/mL (Cutoff = 50) H 12/13/16 18:20 Staphylococcus sp PCR DETECTED (Not Detect) A 12/13/16 15:41 mecA-Methicil Res Gene DETECTED (Not Detect) A 12/13/16 15:41 - Head Head exam: Present: atraumatic - Eye Eye exam: Present: PERRL - ENT ENT exam: Present: mucous membranes moist - Neck Neck exam: Present: full ROM - Respiratory Respiratory exam: Present: decreased breath sounds - Expanded Respiratory Exam Location: decreased breath sounds: Left, Right, Lower - Cardiovascular Cardiovascular exam: Present: RRR, +S1, +S2 - GI/Abdominal GI/Abdominal exam: Present: hypoactive bowel sounds - Additional comments: Engel cath draining clear yellow urine - Extremities Exam Extremities exam: Present: tenderness - Neurological Exam Neurological exam: Present: altered (patient nonverbal, unable to follow commands) - Psychiatric Psychiatric exam: Present: flat affect - Skin Skin exam: Present: rash (generalized flat, red rash to body, stage II to right buttock. ) Palliative Quality Palliative Quality: Screen for Code Status: NA (pt not responsive, awaiting family meeting), Screen for Goals of Care: NA, Screen for Pain: NA, If Pain Regimen Started, Initiate Bowel Regimen: NA, Screen for Nausea/Vomitting: NA Code Status: 12/13/16 18:17 Resuscitation Status: Active [RES] Routine Comment: Resuscitation Status: [id number] Resuscitation Status: Active [RES] Routine Comment: Resuscitation Status: Full Code 01/02/17 13:45 DNR [Resuscitation Status: Active] [RES] Routine Comment: Resuscitation Status: DNR-Comfort Care - Labs CBC & Chem 7: 01/05/17 04:18 01/05/17 03:22 Labs: Laboratory Results - last 24 hr 01/04/17 01/04/17 01/04/17 05:50 07:39 12:04 WBC RBC Hgb Hct MCV MCH MCHC RDW Plt Count MPV Immature Gran % Seg Neutrophils % Lymphocytes % Monocytes % Eosinophils % Basophils % Neutrophils # Lymphocytes # Monocytes # Eosinophils # Basophils # Nucleated RBCs/100 WBC Platelet Estimate Sodium 142 Potassium 4.1 Chloride 104 Carbon Dioxide 27 BUN 36 H Creatinine 0.61 Est GFR ( Amer) > 60 Est GFR (Non-Af Amer) > 60 BUN/Creatinine Ratio 59 H Glucose 118 H POC Glucose 132 H 99 H Calculated Osmolality 303 H Calcium 10.5 01/04/17 01/04/17 01/05/17 16:53 20:49 03:22 WBC RBC Hgb Hct MCV MCH MCHC RDW Plt Count MPV Immature Gran % Seg Neutrophils % Lymphocytes % Monocytes % Eosinophils % Basophils % Neutrophils # Lymphocytes # Monocytes # Eosinophils # Basophils # Nucleated RBCs/100 WBC Platelet Estimate Sodium 142 Potassium 4.5 Chloride 101 Carbon Dioxide 28 BUN 41 H Creatinine 0.66 Est GFR ( Amer) > 60 Est GFR (Non-Af Amer) > 60 BUN/Creatinine Ratio 62 H Glucose 105 H POC Glucose 102 H 97 H Calculated Osmolality 304 H Calcium 11.2 H 01/05/17 04:18 WBC 39.3 H* RBC 4.15 Hgb 13.2 Hct 40.2 MCV 96.9 D MCH 31.8 MCHC 32.8 RDW 14.6 H Plt Count 294 MPV 11.8 Immature Gran % 2.9 Seg Neutrophils % 90.8 Lymphocytes % 3.5 Monocytes % 2.4 Eosinophils % 0.0 Basophils % 0.4 Neutrophils # 35.7 H Lymphocytes # 1.4 Monocytes # 0.9 Eosinophils # 0.0 Basophils # 0.2 Nucleated RBCs/100 WBC 0.1 H Platelet Estimate Normal Sodium Potassium Chloride Carbon Dioxide BUN Creatinine Est GFR ( Amer) Est GFR (Non-Af Amer) BUN/Creatinine Ratio Glucose POC Glucose Calculated Osmolality Calcium - ABG Interpretation ABG results: ABG ABG pH 7.51 pH Units (7.32-7.45) H 12/26/16 04:39 ABG pCO2 33 mmHg (35-45) L 12/26/16 04:39 ABG pO2 111 mmHg (85-104) H 12/26/16 04:39 ABG O2 Saturation 99 % (95-98) H 12/26/16 04:39 PT/INR, D-dimer PT 14.9 Seconds (9.4-12.1) H 12/15/16 05:10 Consult Discharge Plan - Plan Referrals: Cole Chapman Jr, MD [Primary Care Provider] - (web request sent on 01/02/17)
[2017-01-05] MEDS: Atropine Sulfate 1% 40 DROP/2 ML BOTTLE SL PRN (14:30)
[2017-01-05] MEDS: *HR* HYDROmorphone (PF) 1 MG/ML SYRINGE IVP PRN (14:30)
--- NOTE | 2017-01-05 15:39 | Internal Med Progress Note ---
Date of Encounter: 01/05/17 Time of Encounter: 09:00 - Assessment and plan (1) Aspiration pneumonia Current Visit: Yes Status: Suspected Assessment and plan: Suspected, secondary to substance abuse and having been found unresponsive at home. One out of 2 initial blood cultures grew staph epidermidis and repeat blood cultures show no growth. Sputum culture grows Escherichia coli. Continue IV meropenem to complete a 14 day course (Day 9 today). Supportive care and supplemental oxygen. Continues to require 4 L/m oxygen via Venti mask. Discussed with palliative care, patient requires copious nursing case with frequent suctioning and clearing of nasal secretions as she has nasogastric tube in 1 nostril and the other is currently clogged with secretions. - Abx stopped per family wishes - Continue supportive treatment and comfort care. Qualifiers: Aspiration pneumonia type: unspecified Laterality: bilateral Lung location: unspecified part of lung Qualified Code(s): J69.0 - Pneumonitis due to inhalation of food and vomit (2) Acute and chronic respiratory failure Current Visit: Yes Status: Acute Assessment and plan: Due to aspiration pneumonia. Will continue supportive treatment. Continuous frequent suction to remove the secretion. Cont aspiration precaution. Cont comfort care.. Qualifiers: Respiratory failure complication: hypoxia and hypercapnia Qualified Code(s) : J96.21 - Acute and chronic respiratory failure with hypoxia; J96.22 - Acute and chronic respiratory failure with hypercapnia (3) DVT prophylaxis Current Visit: No Status: Acute Assessment and plan: Heparin subcutaneously discontinued as pt receive comfort care only. (4) Cardiac arrest Current Visit: Yes Status: Resolved Assessment and plan: Happened on admission. S/P ACLS, still nonresponsive, Now pt is on comfort care only (5) Anoxic brain injury Current Visit: Yes Status: Acute Assessment and plan: Suspected anoxic brain injury secondary to cardiac arrest. Patient has no purposeful movements, nonverbal. Palliative care team is on board and patient does have a complex social situation. Medical power of insurance attorney seems to be her mother. CODE STATUS is changed to DNR/DNI but no decision has been made regarding hospice/palliative care. Patient cannot have any oral intake with her encephalopathy, which is not expected to improve anytime soon. She would require PEG tube placement for continued nutrition. Surgery consult noted, patient's mother currently does not give consent for PEG placement and patient also continues to require 8-10 L/m oxygen via Ventimask and would not be able to tolerate sedation. 12/30- patient is noted to be in respiratory distress with tachypnea, sinus tachycardia, continues to require at least 15 L/m oxygen via Ventimask. Patient 's family initially requested for transfer to [facility] for higher level of care. However, currently requested to hold off on the transfer. Patient continues to have poor prognosis while the family is struggling to make a decision regarding her long-term care needs. As of today, patient's mother requests for palliative care medications along with tube feeds. 12/31- patient is noted to be tachycardic and tachypneic with worsening leukocytosis. She responds to when necessary IV morphine. Continue supportive care and supplemental oxygen. Palliative care team on board, family meeting with patient's mother set up for 1430 tomorrow. 01/01 - Family meeting hold with pt's mother, no conclusion yet. Pt's mother will talk with pt's father and other family member and give further decision. Continue current treatment at this point. 01/02 - Pt's mother was contacted by palliative care team, details please refer palliative care note. Briefly, still cont IV abx and NG tube feeding, wants comfort management, refuse PEG tube and tracheostomy. Will treat pt as family's wishes. 01/03 - Cont supportive treatment and treat underlying infection. 01/04 - Cont supportive treatment and comfort treatment per family's wish. 01/05 -Pt is on comfort care now. (6) Fungal dermatitis Current Visit: Yes Status: Acute Assessment and plan: Will continue nystatin powder and local wound care with barrier cream. (7) Glioblastoma Current Visit: Yes Status: Acute Assessment and plan: Hx of glioblastoma. S/P radiation therapy. (8) Urinary tract infection Current Visit: Yes Status: Resolved Assessment and plan: Pt is on comfort care now. No abx. Qualifiers: Urinary tract infection type: site unspecified Hematuria presence: without hematuria Qualified Code(s): N39.0 - Urinary tract infection, site not specified (9) Norovirus Current Visit: Yes Status: Resolved Assessment and plan: Noted on admission. No further test because pt is on comfort care only now. 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 Cont Dexamethasone 3mg ivp BID. (11) Rash Current Visit: Yes Status: Acute Assessment and plan: Cont wound care. - Time Spent With Patient 25 - 35 minutes - Subjective Interval history: Patient is a 36-year-old female admitted for aspiration pneumonia and cardiac arrest in emergency room. Her past medical history is significant for pontine glioma status post radiation therapy, cigarette smoking, aspiration pneumonia, dysphagia, COPD on 4 L home oxygen, multiple drug abuse. Patient was treated in ICU initially but mental status not improve although aggressive treatment. Family agreed to change code status to DNR/DNI, patient was extubated and moved to regular floor. Patient was seen and examined today, still nonresponsive, on comfort care, NG tube removed, RR slow, looks in no distress. - Constitutional Vitals: Temp Pulse Resp BP Pulse Ox 98.9 F 104 20 129/90 98 01/05/17 09:48 01/05/17 09:48 01/05/17 10:57 01/05/17 09:48 01/05/17 10:57 General appearance: Present: A&O X 0 (somnolent, comatose) - Head Head exam: Present: atraumatic, normocephalic - Eye Eye exam: Present: PERRL, conjuntiva pink, sclera anicteric Pupils: Present: PERRL - Neck Neck exam general surgery: Present: supple, trachea midline. Absent: lymphadenopathy - Respiratory Respiratory exam: Present: CTAB, rhonchi (B/L). Absent: accessory muscle use, rales, wheezes - Cardiovascular Cardiovascular exam: Present: RRR, +S1, +S2. Absent: diastolic murmur, gallop, rubs, systolic murmur - GI/Abdominal GI/Abdominal exam: Present: normal bowel sounds, soft, no peritoneal signs. Absent: distended, tenderness - Extremities Exam Extremities exam: Present: warm, radial pulses palpable and symetrical. Absent : calf tenderness, cyanotic, pedal edema - Neurological Exam Neurological exam: Absent: facial droop - Skin Skin exam: Present: dry, intact, rash (No change) Internal Medicine: Result - Labs CBC & Chem 7: 01/05/17 04:18 01/05/17 03:22 Labs: Short CBC 01/05/17 Range/Units 04:18 WBC 39.3 H* (4.3-11.1) K/mcL Hgb 13.2 (11.5-15.4) g/dL Hct 40.2 (35.3-44.9) % Plt Count 294 (140-400) K/mcL Neutrophils # 35.7 H (1.6-8.9) K/mcL BMP 01/05/17 03:22 Sodium 142 Potassium 4.5 Chloride 101 Carbon Dioxide 28 BUN 41 H Creatinine 0.66 Glucose 105 H Calcium 11.2 H - ABG Interpretation ABG results: ABG ABG pH 7.51 pH Units (7.32-7.45) H 12/26/16 04:39 ABG pCO2 33 mmHg (35-45) L 12/26/16 04:39 ABG pO2 111 mmHg (85-104) H 12/26/16 04:39 ABG O2 Saturation 99 % (95-98) H 12/26/16 04:39 PT/INR, D-dimer PT 14.9 Seconds (9.4-12.1) H 12/15/16 05:10 - VTE Documentation of Mechanical Device: Intermittent pneumatic compression device Consult Discharge Plan - Plan Referrals: Cole Chapman Jr, MD [Primary Care Provider] - (web request sent on 01/02/17)
[2017-01-06] MEDS: *HR* HYDROmorphone (PF) 1 MG/ML SYRINGE IVP SCH ×6 (02:42→20:56)
[2017-01-06] MEDS: Ipratropium/Albuterol Neb 3 ML IH SCH ×4 (04:31→22:55)
[2017-01-06] MEDS: Dexamethasone 4 MG/ML VIAL IVP SCH ×2 (07:35→20:55)
[2017-01-06] MEDS: Bisacodyl 10 MG RECTAL SUPPOSITORY RC SCH (07:35)
[2017-01-06] MEDS: Nystatin POWDER 30 GM BOTTLE TP SCH ×3 (07:36→21:00)
[2017-01-06] MEDS: Miconazole 2% cream 118 GM TUBE TP SCH ×2 (07:36→21:01)
[2017-01-06] MEDS: Atropine Sulfate 1% 40 DROP/2 ML BOTTLE SL PRN (07:39)
--- NOTE | 2017-01-06 08:52 | Palliative Progress Note ---
Date of Encounter: 01/06/17 Time of Encounter: 08:30 - Assessment and plan (1) Anoxic brain injury Current Visit: Yes Status: Acute Assessment and plan: Patient is now DNRCC - Comfort care. Patient receiving comfort medications. Appears comfortable. No moaning or facial grimacing when turned. Continue to update mother and provide support. WBC 39.3 today. (2) Counseling regarding advanced care planning and goals of care Current Visit: No Status: Acute Assessment and plan: Patient is DNRCC - Comfort Care. Goals are for comfort with medications and provide support. 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 Patient nonverbal, doesn't follow commands. Eyes closed, respirations easy. - Constitutional Vitals: Abnormal lab results WBC 39.3 K/mcL (4.3-11.1) H* 01/05/17 04:18 RDW 14.6 % (11.5-14.5) H 01/05/17 04:18 Metamyelocytes % 4.0 % (0) H 12/14/16 23:35 Promyelocytes % 1.0 % (0) H 12/14/16 00:25 Neutrophils # 35.7 K/mcL (1.6-8.9) H 01/05/17 04:18 Nucleated RBCs/100 WBC 0.1 /100 WBC (0) H 01/05/17 04:18 Hypersegmented Neuts Present (Not Present) A 01/03/17 04:30 Reactive Lymphocytes Present (Not Present) A 12/26/16 03:21 Toxic Granulation Present (Not Present) A 01/03/17 04:30 Toxic Vacuolation Present (Not Present) A 01/03/17 04:30 Clumped Platelets Few (Not Present) A 12/14/16 00:25 Large Platelets Present (Not Present) A 12/26/16 03:21 Polychromasia 1+ (Not Present) A 01/02/17 06:12 PT 14.9 Seconds (9.4-12.1) H 12/15/16 05:10 ABG pH 7.51 pH Units (7.32-7.45) H 12/26/16 04:39 ABG pCO2 33 mmHg (35-45) L 12/26/16 04:39 ABG pO2 111 mmHg (85-104) H 12/26/16 04:39 ABG Total CO2 27.3 mEq/L (20-26) H 12/26/16 04:39 ABG O2 Saturation 99 % (95-98) H 12/26/16 04:39 ABG Base Excess 3.6 mEq/L (-2.0 to 3.0) H 12/26/16 04:39 BUN 41 mg/dL (7-20) H 01/05/17 03:22 BUN/Creatinine Ratio 62 (6-26) H 01/05/17 03:22 Glucose 105 mg/dL (70-99) H 01/05/17 03:22 POC Glucose 113 (58-89) H 01/05/17 17:43 Calculated Osmolality 304 (280-300) H 01/05/17 03:22 Calcium 11.2 mg/dL (8.6-10.8) H 01/05/17 03:22 AST 45 Units/L (5-34) H 01/03/17 21:17 Troponin I 1.06 ng/mL (0-0.03) H* 12/14/16 05:44 B-Natriuretic Peptide 150 pg/mL (0-100) H 12/13/16 16:45 Albumin 3.0 g/dL (3.5-5.0) L 01/03/17 21:17 Globulin 3.6 g/dL (2.4-3.5) H 01/03/17 21:17 Albumin/Globulin Ratio 0.8 (1.1-2.2) L 01/03/17 21:17 Urine Clarity Turbid (Clear) A 01/03/17 21:22 Urine Protein 30 mg/dL (Neg-Trace) H 01/03/17 21:22 Urine Blood Moderate (Negative) H 01/03/17 21:22 Ur Leukocyte Esterase Small (Negative) H 01/03/17 21:22 Urine Microscopic RBC 30-50 per hpf (0-3) H 01/03/17 21:22 Urine Microscopic WBC 30-50 per hpf (0-3) H 01/03/17 21:22 Ur Squamous Epith Cells Many per lpf (None-Few) H 01/03/17 21:22 Urine Yeast Moderate per hpf (None Seen) H 12/31/16 22:44 Ur Culture Indicated? YES (NO) A 12/31/16 22:44 Stl Norovirus GI/GII PCR DETECTED (Not detect) A 12/13/16 21:44 Urine Opiates Screen Positive ng/mL (Wsehou=317) H 12/13/16 18:20 Acetaminophen < 1.0 mcg/mL (10-30) L 12/13/16 19:30 U Benzodiazepines Scrn Positive ng/mL (Tmnyxp=554) H 12/13/16 18:20 U Marijuana (THC) Screen Positive ng/mL (Cutoff = 50) H 12/13/16 18:20 Staphylococcus sp PCR DETECTED (Not Detect) A 12/13/16 15:41 mecA-Methicil Res Gene DETECTED (Not Detect) A 12/13/16 15:41 - Head Head exam: Present: atraumatic, normal inspection, normocephalic - Eye Eye exam: Present: PERRL Pupils: Present: PERRL - ENT ENT exam: Present: mucous membranes moist - Respiratory Respiratory exam: Present: decreased breath sounds, rhonchi - Expanded Respiratory Exam Location: decreased breath sounds: Left, Right, Lower, rhonchi: Right - Cardiovascular Cardiovascular exam: Present: RRR, +S1, +S2 - GI/Abdominal GI/Abdominal exam: Present: diminished bowel sounds, soft - Neurological Exam Neurological exam: Present: altered (nonverbal, doesn't repond to name) - Psychiatric Psychiatric exam: Present: flat affect - Skin Skin exam: Present: rash (generalized red flat rash to trunk and extremities) Palliative Quality Palliative Quality: Screen for Code Status: NA (pt not responsive, awaiting family meeting), Screen for Goals of Care: NA, Screen for Pain: NA, If Pain Regimen Started, Initiate Bowel Regimen: NA, Screen for Nausea/Vomitting: NA Code Status: 12/13/16 18:17 Resuscitation Status: Active [RES] Routine Comment: Resuscitation Status: [id number] Resuscitation Status: Active [RES] Routine Comment: Resuscitation Status: Full Code 01/02/17 13:45 DNR [Resuscitation Status: Active] [RES] Routine Comment: Resuscitation Status: DNR-Comfort Care - Labs CBC & Chem 7: 01/05/17 04:18 01/05/17 03:22 Labs: Laboratory Results - last 24 hr 01/05/17 01/05/17 12:11 17:43 POC Glucose 110 H 113 H - ABG Interpretation ABG results: ABG ABG pH 7.51 pH Units (7.32-7.45) H 12/26/16 04:39 ABG pCO2 33 mmHg (35-45) L 12/26/16 04:39 ABG pO2 111 mmHg (85-104) H 12/26/16 04:39 ABG O2 Saturation 99 % (95-98) H 12/26/16 04:39 PT/INR, D-dimer PT 14.9 Seconds (9.4-12.1) H 12/15/16 05:10 Consult Discharge Plan - Plan Referrals: Cole Chapman Jr, MD [Primary Care Provider] - (web request sent on 01/02/17)
--- NOTE | 2017-01-06 16:38 | Internal Med Progress Note ---
Date of Encounter: 01/06/17 Time of Encounter: 10:00 - Assessment and plan (1) Aspiration pneumonia Current Visit: Yes Status: Suspected Assessment and plan: - Abx stopped per family wishes - Continue comfort care. Qualifiers: Aspiration pneumonia type: unspecified Laterality: bilateral Lung location: unspecified part of lung Qualified Code(s): J69.0 - Pneumonitis due to inhalation of food and vomit (2) Acute and chronic respiratory failure Current Visit: Yes Status: Acute Assessment and plan: Due to aspiration pneumonia. Will continue supportive treatment. Continuous frequent suction to remove the secretion. Cont aspiration precaution. Cont comfort care.. Qualifiers: Respiratory failure complication: hypoxia and hypercapnia Qualified Code(s) : J96.21 - Acute and chronic respiratory failure with hypoxia; J96.22 - Acute and chronic respiratory failure with hypercapnia (3) DVT prophylaxis Current Visit: No Status: Acute Assessment and plan: Heparin subcutaneously discontinued as pt receive comfort care only. (4) Cardiac arrest Current Visit: Yes Status: Resolved Assessment and plan: Happened on admission. S/P ACLS, still nonresponsive, Now pt is on comfort care only (5) Anoxic brain injury Current Visit: Yes Status: Acute Assessment and plan: Still nonresponsive, Pt is on comfort care now. (6) Fungal dermatitis Current Visit: Yes Status: Acute Assessment and plan: Will continue nystatin powder and local wound care with barrier cream. (7) Glioblastoma Current Visit: Yes Status: Acute Assessment and plan: Hx of glioblastoma. S/P radiation therapy. (8) Urinary tract infection Current Visit: Yes Status: Resolved Assessment and plan: Pt is on comfort care now. No abx. Qualifiers: Urinary tract infection type: site unspecified Hematuria presence: without hematuria Qualified Code(s): N39.0 - Urinary tract infection, site not specified (9) Norovirus Current Visit: Yes Status: Resolved Assessment and plan: Noted on admission. No further test because pt is on comfort care only now. 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 Cont Dexamethasone 3mg ivp BID. (11) Rash Current Visit: Yes Status: Acute Assessment and plan: Cont wound care. - Time Spent With Patient 25 - 35 minutes - Subjective Interval history: Patient was seen and examined today, still nonresponsive, on comfort care, NG tube removed, RR slow, looks in no distress. - Constitutional Vitals: Temp Pulse Resp BP Pulse Ox 97.6 F 99 16 159/94 92 01/06/17 15:35 01/06/17 15:35 01/06/17 15:41 01/06/17 15:35 01/06/17 15:41 General appearance: Present: A&O X 0 (somnolent, comatose) - Head Head exam: Present: atraumatic, normocephalic - Eye Eye exam: Present: PERRL, conjuntiva pink, sclera anicteric Pupils: Present: PERRL - Neck Neck exam general surgery: Present: supple, trachea midline. Absent: lymphadenopathy - Respiratory Respiratory exam: Present: CTAB, prolonged expiratory phase, rhonchi (B/L). Absent: accessory muscle use, rales, wheezes - Cardiovascular Cardiovascular exam: Present: RRR, +S1, +S2. Absent: diastolic murmur, gallop, rubs, systolic murmur - GI/Abdominal GI/Abdominal exam: Present: normal bowel sounds, soft, no peritoneal signs. Absent: distended, tenderness - Extremities Exam Extremities exam: Present: warm, radial pulses palpable and symetrical. Absent : calf tenderness, cyanotic, pedal edema - Neurological Exam Neurological exam: Absent: facial droop - Skin Skin exam: Present: dry, intact, rash (On b/l legs, arms and neck area) Internal Medicine: Result - Labs CBC & Chem 7: 01/05/17 04:18 01/05/17 03:22 - ABG Interpretation ABG results: ABG ABG pH 7.51 pH Units (7.32-7.45) H 12/26/16 04:39 ABG pCO2 33 mmHg (35-45) L 12/26/16 04:39 ABG pO2 111 mmHg (85-104) H 12/26/16 04:39 ABG O2 Saturation 99 % (95-98) H 12/26/16 04:39 PT/INR, D-dimer PT 14.9 Seconds (9.4-12.1) H 12/15/16 05:10 - VTE Documentation of Mechanical Device: Intermittent pneumatic compression device Consult Discharge Plan - Plan Referrals: Cole Chapman Jr, MD [Primary Care Provider] - (web request sent on 01/02/17)
[2017-01-07] MEDS: *HR* HYDROmorphone (PF) 1 MG/ML SYRINGE IVP SCH ×5 (00:51→16:43)
[2017-01-07] MEDS: Ipratropium/Albuterol Neb 3 ML IH SCH ×4 (04:15→21:48)
[2017-01-07] MEDS: Scopolamine Patch 1.5 MG PATCH.TD72 TD SCH (08:24)
[2017-01-07] MEDS: Bisacodyl 10 MG RECTAL SUPPOSITORY RC SCH (08:24)
[2017-01-07] MEDS: Dexamethasone 4 MG/ML VIAL IVP SCH ×2 (08:24→20:30)
[2017-01-07] MEDS: Miconazole 2% cream 118 GM TUBE TP SCH ×2 (08:25→20:30)
[2017-01-07] MEDS: Nystatin POWDER 30 GM BOTTLE TP SCH ×3 (08:25→20:30)
[2017-01-07] MEDS ORDERED: *HR* FentaNYL PATCH 25 MCG PATCH TD SCH (09:15)
--- NOTE | 2017-01-07 09:21 | Palliative Progress Note ---
Date of Encounter: 01/07/17 Time of Encounter: 09:17 - Assessment and plan (1) Dyspnea Current Visit: Yes Status: Acute Assessment and plan: Respirations irregular with some accessory muscle use. Lung sounds with coarse rhonchi. Will adjust to transdermal fentanyl to allow for possible transition out of the hospital setting. Current use of hydromorphone=6mg/day, which is equal to 100 oral morphine equivalents (with a 20% dose reduction). Will start Fentanyl patch at 25mcg/hr and maintain IV hydromorphone PRN for breakthrough dyspnea. Current respiratory rate 6/min with apnea periods lasting about 20 seconds. Qualifiers: Dyspnea type: unspecified Qualified Code(s): R06.00 - Dyspnea, unspecified (2) Congestion of upper airway Current Visit: Yes Status: Acute Assessment and plan: Scopolamine patch and atropine drops. Upper airway congestion has improved. Minimal oral secretions at this time. (3) Anoxic brain injury Current Visit: Yes Status: Acute (4) Counseling regarding advanced care planning and goals of care Current Visit: Yes Status: Acute Assessment and plan: Ms. Perez transitioned to DNR-CC and goal is comfort care. 1:45pm: Met with patient's mother/POA Timothy Lopez, and friend Yamile Samayoa. Reviewed physical assessment and new neurological findings (left pupil fixed and dilated). Discussed and completed skin care. Reviewed artificial nutrition and hydration including risks/benefits. Ms. Lopez supported transition to comfort care on 01/04/17, and continues to do so today. Discussed recent aspiration events and overall impact in health. Ms. Perez's respiratory distress has improved since stopping the tube feedings. She is not a TPN candidate. media services specialist present for conversation. Discussed placement and transition outside of the hospital setting. Currently transitioning Ms. Perez from IV pain medications to transdermal/oral. Timothy John verbalized understanding of the conversation and summarized at the close of the conversation. Care will continue the current course and Ms. Perez will be made comfortable. Code status remains DNR-CC. (5) Aspiration pneumonia Current Visit: Yes Status: Suspected Assessment and plan: Ms. Perez has been off tube feedings since Saturday01/04/17. Airway secretions have improved. Qualifiers: Aspiration pneumonia type: unspecified Laterality: bilateral Lung location: unspecified part of lung Qualified Code(s): J69.0 - Pneumonitis due to inhalation of food and vomit (6) Cardiac arrest Current Visit: Yes Status: Resolved (7) Acute and chronic respiratory failure Current Visit: Yes Status: Acute Qualifiers: Respiratory failure complication: hypoxia and hypercapnia Qualified Code(s) : J96.21 - Acute and chronic respiratory failure with hypoxia; J96.22 - Acute and chronic respiratory failure with hypercapnia - Time Spent With Patient Total time spent is greater than 50% in coordination of care (as documented) at patient's floor/unit and/or counseling patient: - Subjective Interval history: 36 year old female, unresponsive, does not follow commands. Withdraws to pain - Constitutional Vitals: Abnormal lab results WBC 39.3 K/mcL (4.3-11.1) H* 01/05/17 04:18 RDW 14.6 % (11.5-14.5) H 01/05/17 04:18 Metamyelocytes % 4.0 % (0) H 12/14/16 23:35 Promyelocytes % 1.0 % (0) H 12/14/16 00:25 Neutrophils # 35.7 K/mcL (1.6-8.9) H 01/05/17 04:18 Nucleated RBCs/100 WBC 0.1 /100 WBC (0) H 01/05/17 04:18 Hypersegmented Neuts Present (Not Present) A 01/03/17 04:30 Reactive Lymphocytes Present (Not Present) A 12/26/16 03:21 Toxic Granulation Present (Not Present) A 01/03/17 04:30 Toxic Vacuolation Present (Not Present) A 01/03/17 04:30 Clumped Platelets Few (Not Present) A 12/14/16 00:25 Large Platelets Present (Not Present) A 12/26/16 03:21 Polychromasia 1+ (Not Present) A 01/02/17 06:12 PT 14.9 Seconds (9.4-12.1) H 12/15/16 05:10 ABG pH 7.51 pH Units (7.32-7.45) H 12/26/16 04:39 ABG pCO2 33 mmHg (35-45) L 12/26/16 04:39 ABG pO2 111 mmHg (85-104) H 12/26/16 04:39 ABG Total CO2 27.3 mEq/L (20-26) H 12/26/16 04:39 ABG O2 Saturation 99 % (95-98) H 12/26/16 04:39 ABG Base Excess 3.6 mEq/L (-2.0 to 3.0) H 12/26/16 04:39 BUN 41 mg/dL (7-20) H 01/05/17 03:22 BUN/Creatinine Ratio 62 (6-26) H 01/05/17 03:22 Glucose 105 mg/dL (70-99) H 01/05/17 03:22 POC Glucose 105 (58-89) H 01/07/17 05:16 Calculated Osmolality 304 (280-300) H 01/05/17 03:22 Calcium 11.2 mg/dL (8.6-10.8) H 01/05/17 03:22 AST 45 Units/L (5-34) H 01/03/17 21:17 Troponin I 1.06 ng/mL (0-0.03) H* 12/14/16 05:44 B-Natriuretic Peptide 150 pg/mL (0-100) H 12/13/16 16:45 Albumin 3.0 g/dL (3.5-5.0) L 01/03/17 21:17 Globulin 3.6 g/dL (2.4-3.5) H 01/03/17 21:17 Albumin/Globulin Ratio 0.8 (1.1-2.2) L 01/03/17 21:17 Urine Clarity Turbid (Clear) A 01/03/17 21:22 Urine Protein 30 mg/dL (Neg-Trace) H 01/03/17 21:22 Urine Blood Moderate (Negative) H 01/03/17 21:22 Ur Leukocyte Esterase Small (Negative) H 01/03/17 21:22 Urine Microscopic RBC 30-50 per hpf (0-3) H 01/03/17 21:22 Urine Microscopic WBC 30-50 per hpf (0-3) H 01/03/17 21:22 Ur Squamous Epith Cells Many per lpf (None-Few) H 01/03/17 21:22 Urine Yeast Moderate per hpf (None Seen) H 12/31/16 22:44 Ur Culture Indicated? YES (NO) A 12/31/16 22:44 Stl Norovirus GI/GII PCR DETECTED (Not detect) A 12/13/16 21:44 Urine Opiates Screen Positive ng/mL (Ifajln=582) H 12/13/16 18:20 Acetaminophen < 1.0 mcg/mL (10-30) L 12/13/16 19:30 U Benzodiazepines Scrn Positive ng/mL (Ygthdg=410) H 12/13/16 18:20 U Marijuana (THC) Screen Positive ng/mL (Cutoff = 50) H 12/13/16 18:20 Staphylococcus sp PCR DETECTED (Not Detect) A 12/13/16 15:41 mecA-Methicil Res Gene DETECTED (Not Detect) A 12/13/16 15:41 General appearance: Present: no acute distress Exam: 36 year old female, unresponsive - Eye Pupils: Present: fixed (left pupil fixed and dilated), unequal (left pupil fixed and dilated ) Additional comments: left pupil fixed and dilated, right pupil remains reactive. - ENT ENT exam: Present: mucous membranes moist - Respiratory Respiratory exam: Present: rhonchi. Absent: respiratory distress Additional comments: respiratory rate 6/min with periodic apnea lasting up to 20 seconds. - Cardiovascular Cardiovascular exam: Present: RRR - GI/Abdominal GI/Abdominal exam: Present: normal bowel sounds, soft. Absent: distended, firm Additional comments: last BM documented 01/02. She is receiving daily rectal suppositories. - Extremities Exam Extremities exam: Absent: pedal edema - Neurological Exam Additional comments: unresponsive, does not follow commands - Psychiatric Psychiatric exam: Absent: agitated, anxious - Skin Additional comments: erythematous macular rash to trunk and extremities. Erythema is fading when compared to last week. Palliative Quality Palliative Quality: Screen for Code Status: Yes, Screen for Goals of Care: Yes, Screen for Pain: Yes, If Pain Regimen Started, Initiate Bowel Regimen: Yes, Screen for Nausea/Vomitting: Yes Code Status: 12/13/16 18:17 Resuscitation Status: Active [RES] Routine Comment: Resuscitation Status: [id number] Resuscitation Status: Active [RES] Routine Comment: Resuscitation Status: Full Code 01/02/17 13:45 DNR [Resuscitation Status: Active] [RES] Routine Comment: Resuscitation Status: DNR-Comfort Care - Labs CBC & Chem 7: 06/24/17 04:18 01/05/17 03:22 Labs: Laboratory Results - last 24 hr 01/03/17 01/07/17 21:17 05:16 POC Glucose 105 H Procalcitonin < 0.07 - ABG Interpretation ABG results: ABG ABG pH 7.51 pH Units (7.32-7.45) H 12/26/16 04:39 ABG pCO2 33 mmHg (35-45) L 12/26/16 04:39 ABG pO2 111 mmHg (85-104) H 12/26/16 04:39 ABG O2 Saturation 99 % (95-98) H 12/26/16 04:39 PT/INR, D-dimer PT 14.9 Seconds (9.4-12.1) H 12/15/16 05:10 Consult Discharge Plan - Plan Referrals: Cole Chapman Jr, MD [Primary Care Provider] - (web request sent on 01/02/17)
--- NOTE | 2017-01-07 17:48 | Internal Med Progress Note ---
Date of Encounter: 01/07/17 Time of Encounter: 10:00 - Assessment and plan (1) Aspiration pneumonia Current Visit: Yes Status: Suspected Assessment and plan: - Abx stopped per family wishes - Continue comfort care. - Less secretion as NG tube removal and atropine drip use. Qualifiers: Aspiration pneumonia type: unspecified Laterality: bilateral Lung location: unspecified part of lung Qualified Code(s): J69.0 - Pneumonitis due to inhalation of food and vomit (2) Cardiac arrest Current Visit: Yes Status: Resolved Assessment and plan: Happened on admission. S/P ACLS, still nonresponsive, Now pt is on comfort care only (3) Anoxic brain injury Current Visit: Yes Status: Acute Assessment and plan: Still nonresponsive, Pt is on comfort care now. (4) Glioblastoma Current Visit: Yes Status: Acute Assessment and plan: Hx of glioblastoma. S/P radiation therapy. 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 Cont Dexamethasone 3mg ivp BID. (6) Rash Current Visit: Yes Status: Acute Assessment and plan: Cont wound care. - Time Spent With Patient 25 - 35 minutes - Subjective Interval history: Patient was seen and examined today, still nonresponsive, on comfort care, NG tube removed, RR slow, looks in no distress. Less secretion after NG tube removal. - Constitutional Vitals: Temp Pulse Resp BP Pulse Ox 98.4 F 92 13 142/102 100 01/07/17 16:15 01/07/17 16:15 01/07/17 16:15 01/07/17 16:15 01/07/17 16:15 General appearance: Present: A&O X 0 (somnolent, comatose) - Head Head exam: Present: atraumatic, normocephalic - Eye Eye exam: Present: conjuntiva pink, sclera anicteric Pupils: Present: fixed, unequal - Neck Neck exam general surgery: Present: supple, trachea midline. Absent: lymphadenopathy - Respiratory Respiratory exam: Present: CTAB, rhonchi (B/L). Absent: accessory muscle use, rales, wheezes - Cardiovascular Cardiovascular exam: Present: RRR, +S1, +S2. Absent: diastolic murmur, gallop, rubs, systolic murmur - GI/Abdominal GI/Abdominal exam: Present: normal bowel sounds, soft, no peritoneal signs. Absent: distended, tenderness - Extremities Exam Extremities exam: Present: warm, radial pulses palpable and symetrical. Absent : calf tenderness, cyanotic, pedal edema - Neurological Exam Neurological exam: Absent: facial droop - Skin Skin exam: Present: dry, intact, rash Internal Medicine: Result - Labs CBC & Chem 7: 01/05/17 04:18 01/05/17 03:22 - ABG Interpretation ABG results: ABG ABG pH 7.51 pH Units (7.32-7.45) H 12/26/16 04:39 ABG pCO2 33 mmHg (35-45) L 12/26/16 04:39 ABG pO2 111 mmHg (85-104) H 12/26/16 04:39 ABG O2 Saturation 99 % (95-98) H 12/26/16 04:39 PT/INR, D-dimer PT 14.9 Seconds (9.4-12.1) H 12/15/16 05:10 - VTE Documentation of Mechanical Device: Intermittent pneumatic compression device Consult Discharge Plan - Plan Referrals: Cole Chapman Jr, MD [Primary Care Provider] - (web request sent on 01/02/17)
[2017-01-08] MEDS: Ipratropium/Albuterol Neb 3 ML IH SCH (03:55)
[2017-01-08] MEDS: *HR* HYDROmorphone (PF) 1 MG/ML SYRINGE IVP PRN ×3 (07:29→16:52)
[2017-01-08] MEDS ORDERED: Ipratropium/Albuterol Neb 3 ML IH PRN (08:43)
[2017-01-08] MEDS: Bisacodyl 10 MG RECTAL SUPPOSITORY RC SCH (09:49)
[2017-01-08] MEDS: *HR* LORazepam 2 MG/ML VIAL IVP PRN (09:49)
[2017-01-08] MEDS: Dexamethasone 4 MG/ML VIAL IVP SCH (09:49)
[2017-01-08] MEDS: Miconazole 2% cream 118 GM TUBE TP SCH (09:50)
[2017-01-08] MEDS: Nystatin POWDER 30 GM BOTTLE TP SCH ×2 (09:50→14:45)
--- NOTE | 2017-01-08 09:50 | Palliative Progress Note ---
Date of Encounter: 01/08/17 Time of Encounter: 09:47 - Assessment and plan (1) Dyspnea Current Visit: Yes Status: Acute Assessment and plan: Respirations irregular with some accessory muscle use. Lung sounds with coarse rhonchi. Transdermal fentanyl patch placed yesterday with PRN dilaudid for breakthrough symptoms. Will adjust to oral medications for breakthrough dyspnea. Qualifiers: Dyspnea type: unspecified Qualified Code(s): R06.00 - Dyspnea, unspecified (2) Congestion of upper airway Current Visit: Yes Status: Acute Assessment and plan: Scopolamine patch and atropine drops. Upper airway congestion has improved. Minimal oral secretions at this time. (3) Anoxic brain injury Current Visit: Yes Status: Acute Assessment and plan: Ms. Perez continues to be unresponsive. 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 Pupilary response differs from yesterday's assessment. Pupils are both reactive, but sluggish, and right pupil is 10mm, left pupil is 5-6mm. 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 Perez transitioned to DNR-CC and goal is comfort care. academic services professional on board for placement at [facility]. (5) Aspiration pneumonia Current Visit: Yes Status: Suspected Assessment and plan: Ms. Perez has been off tube feedings since Saturday01/04/17. Airway secretions have improved. Qualifiers: Aspiration pneumonia type: unspecified Laterality: bilateral Lung location: unspecified part of lung Qualified Code(s): J69.0 - Pneumonitis due to inhalation of food and vomit (6) Cardiac arrest Current Visit: Yes Status: Resolved (7) Acute and chronic respiratory failure Current Visit: Yes Status: Acute Assessment and plan: Supplemental oxygen via face mask at 4L/min. Oral suctioning PRN. A Qualifiers: Respiratory failure complication: hypoxia and hypercapnia Qualified Code(s) : J96.21 - Acute and chronic respiratory failure with hypoxia; J96.22 - Acute and chronic respiratory failure with hypercapnia - Time Spent With Patient Total time spent is greater than 50% in coordination of care (as documented) at patient's floor/unit and/or counseling patient: - Subjective Interval history: 36 year old female, unresponsive, does not follow commands - Constitutional Vitals: Abnormal lab results WBC 39.3 K/mcL (4.3-11.1) H* 01/05/17 04:18 RDW 14.6 % (11.5-14.5) H 01/05/17 04:18 Metamyelocytes % 4.0 % (0) H 12/14/16 23:35 Promyelocytes % 1.0 % (0) H 12/14/16 00:25 Neutrophils # 35.7 K/mcL (1.6-8.9) H 01/05/17 04:18 Nucleated RBCs/100 WBC 0.1 /100 WBC (0) H 01/05/17 04:18 Hypersegmented Neuts Present (Not Present) A 01/03/17 04:30 Reactive Lymphocytes Present (Not Present) A 12/26/16 03:21 Toxic Granulation Present (Not Present) A 01/03/17 04:30 Toxic Vacuolation Present (Not Present) A 01/03/17 04:30 Clumped Platelets Few (Not Present) A 12/14/16 00:25 Large Platelets Present (Not Present) A 12/26/16 03:21 Polychromasia 1+ (Not Present) A 01/02/17 06:12 PT 14.9 Seconds (9.4-12.1) H 12/15/16 05:10 ABG pH 7.51 pH Units (7.32-7.45) H 12/26/16 04:39 ABG pCO2 33 mmHg (35-45) L 12/26/16 04:39 ABG pO2 111 mmHg (85-104) H 12/26/16 04:39 ABG Total CO2 27.3 mEq/L (20-26) H 12/26/16 04:39 ABG O2 Saturation 99 % (95-98) H 12/26/16 04:39 ABG Base Excess 3.6 mEq/L (-2.0 to 3.0) H 12/26/16 04:39 BUN 41 mg/dL (7-20) H 01/05/17 03:22 BUN/Creatinine Ratio 62 (6-26) H 01/05/17 03:22 Glucose 105 mg/dL (70-99) H 01/05/17 03:22 POC Glucose 117 (58-89) H 01/07/17 10:50 Calculated Osmolality 304 (280-300) H 01/05/17 03:22 Calcium 11.2 mg/dL (8.6-10.8) H 01/05/17 03:22 AST 45 Units/L (5-34) H 01/03/17 21:17 Troponin I 1.06 ng/mL (0-0.03) H* 12/14/16 05:44 B-Natriuretic Peptide 150 pg/mL (0-100) H 12/13/16 16:45 Albumin 3.0 g/dL (3.5-5.0) L 01/03/17 21:17 Globulin 3.6 g/dL (2.4-3.5) H 01/03/17 21:17 Albumin/Globulin Ratio 0.8 (1.1-2.2) L 01/03/17 21:17 Urine Clarity Turbid (Clear) A 01/03/17 21:22 Urine Protein 30 mg/dL (Neg-Trace) H 01/03/17 21:22 Urine Blood Moderate (Negative) H 01/03/17 21:22 Ur Leukocyte Esterase Small (Negative) H 01/03/17 21:22 Urine Microscopic RBC 30-50 per hpf (0-3) H 01/03/17 21:22 Urine Microscopic WBC 30-50 per hpf (0-3) H 01/03/17 21:22 Ur Squamous Epith Cells Many per lpf (None-Few) H 01/03/17 21:22 Urine Yeast Moderate per hpf (None Seen) H 12/31/16 22:44 Ur Culture Indicated? YES (NO) A 12/31/16 22:44 Stl Norovirus GI/GII PCR DETECTED (Not detect) A 12/13/16 21:44 Urine Opiates Screen Positive ng/mL (Jimjdx=952) H 12/13/16 18:20 Acetaminophen < 1.0 mcg/mL (10-30) L 12/13/16 19:30 U Benzodiazepines Scrn Positive ng/mL (Ierias=728) H 12/13/16 18:20 U Marijuana (THC) Screen Positive ng/mL (Cutoff = 50) H 12/13/16 18:20 Staphylococcus sp PCR DETECTED (Not Detect) A 12/13/16 15:41 mecA-Methicil Res Gene DETECTED (Not Detect) A 12/13/16 15:41 General appearance: Present: no acute distress Exam: 36 year old female, unresponsive. Pupils unequal, reactive but sluggish. Right pupil 10mm and reactive, left pupil 5-6mm and reactive - Eye Additional comments: Right pupil 10mm and reactive, left pupil 5-6mm and reactive - ENT ENT exam: Present: mucous membranes moist - Respiratory Respiratory exam: Present: rhonchi. Absent: accessory muscle use, tachypnea - Cardiovascular Cardiovascular exam: Present: RRR - GI/Abdominal GI/Abdominal exam: Present: soft. Absent: distended, firm - Extremities Exam Extremities exam: Absent: pedal edema Additional comments: bilateral foot drop - Neurological Exam Additional comments: Right pupil 10mm and reactive, left pupil 5-6mm and reactive. Unresponsive, does withdraw to pain - Psychiatric Psychiatric exam: Absent: agitated, anxious - Skin Skin exam: Present: dry, warm Additional comments: erythematous macular rash noted to trunk and extremities. Rash improved from last week. Desquamation noted. Palliative Quality Palliative Quality: Screen for Code Status: Yes, Screen for Goals of Care: Yes, Screen for Pain: Yes, If Pain Regimen Started, Initiate Bowel Regimen: Yes, Screen for Nausea/Vomitting: Yes Code Status: 12/13/16 18:17 Resuscitation Status: Active [RES] Routine Comment: Resuscitation Status: [id number] Resuscitation Status: Active [RES] Routine Comment: Resuscitation Status: Full Code 01/02/17 13:45 DNR [Resuscitation Status: Active] [RES] Routine Comment: Resuscitation Status: DNR-Comfort Care - Labs CBC & Chem 7: 01/05/17 04:18 01/05/17 03:22 Labs: Laboratory Results - last 24 hr 01/06/17 01/06/17 01/07/17 07:08 12:34 10:50 POC Glucose 110 H 109 H 117 H - ABG Interpretation ABG results: ABG ABG pH 7.51 pH Units (7.32-7.45) H 12/26/16 04:39 ABG pCO2 33 mmHg (35-45) L 12/26/16 04:39 ABG pO2 111 mmHg (85-104) H 12/26/16 04:39 ABG O2 Saturation 99 % (95-98) H 12/26/16 04:39 PT/INR, D-dimer PT 14.9 Seconds (9.4-12.1) H 12/15/16 05:10 Consult Discharge Plan - Plan Referrals: Cole Chapman Jr, MD [Primary Care Provider] - (web request sent on 01/02/17)
[2017-01-08 11:19] VITALS: BP 130/91
--- NOTE | 2017-01-08 15:31 | Discharge Summary ---
Date of Encounter: 01/08/17 Time of Encounter: 15:00 - Discharge Diagnosis (1) Aspiration pneumonia Priority: Primary Status: Suspected Qualifiers: Aspiration pneumonia type: unspecified Laterality: bilateral Lung location: unspecified part of lung Qualified Code(s): J69.0 - Pneumonitis due to inhalation of food and vomit (2) Cardiac arrest Priority: Primary Status: Resolved (3) Anoxic brain injury Priority: Primary Status: Acute (4) Glioblastoma Priority: Secondary Status: Acute (5) Chronic use of steroids Priority: Secondary Status: Chronic (6) Rash Priority: Primary Status: Acute - Discharge Medications Home Medications: Albuterol Sulfate [Albuterol Inhaler] 2 puff IH Q4HR PRN #1 unit 11/15/15 [Rx] Docusate Sodium [Dok] 250 mg PO DAILY #30 capsule 03/09/16 [Rx] Folic Acid 1 mg PO DAILY 06/17/16 [History] Simethicone [Gas-X] 80 mg PO DAILY #30 tab.chew 08/16/16 [Rx] Nystatin [Nystatin Suspension] 5 ml PO QID #120 ml 09/17/16 [Rx] Calcium Carbonate/Vitamin D3 [Calcium 500-Vit D3 200 Tablet] 1 each PO DAILY # 30 tablet 10/25/16 [Rx] Beclomethasone Diprop 80mcg [Qvar 80 mcg] 1 puff IH BID #1 aer.w.adap 11/13/16 [ Rx] Bisacodyl [Dulcolax] 5 - 10 mg PO DAILY PRN #60 tablet 11/13/16 [Rx] Dexamethasone [Decadron] 4 mg PO BID #60 tablet 11/13/16 [Rx] Famotidine [Pepcid] 20 mg PO DAILY #30 tablet 11/13/16 [Rx] ALPRAZolam [Xanax 1 MG Tablet] 1 - 2 mg PO TID PRN #126 tablet 11/23/16 [Rx] HYDROcodone/Acet 10/325 mg [[place] 10-325 mg] 1 - 2 tab PO Q4HR PRN #240 tab [Rx] Citalopram [CeleXA] 20 mg PO DAILY #30 tablet 12/04/16 [Rx] Gabapentin [Neurontin] 800 mg PO QID #120 tablet 12/04/16 [Rx] Ascorbic Acid [Vitamin C] 500 mg PO DAILY 12/13/16 [History] Ondansetron ODT [Zofran ODT] 4 mg PO Q6H PRN 12/13/16 [History] Dexamethasone [Decadron] 3 mg IVP BID vial 01/08/17 [Rx] FentaNYL PATCH [Duragesic] 25 mcg TD Q72H patch.td72 01/08/17 [Rx] HYDROmorphone (PF) [Dilaudid] 1 mg IVP Q1H PRN #0 syringe 01/08/17 [Rx] LORazepam [Ativan] 1 mg IVP Q8HR PRN #0 vial 01/08/17 [Rx] Nystatin POWDER [Nystop] 1 appl TP TID bottle 01/08/17 [Rx] Scopolamine Patch [Transderm-Scop] 1.5 mg TD Q72H patch.td72 01/08/17 [Rx] Allergies/Adverse Reactions: Allergies ethinyl estradiol [From Ortho Tri-Cyclen (28)] Allergy (Verified 11/01/16 23:20) Hives norgestimate [From Ortho Tri-Cyclen (28)] Allergy (Verified 11/01/16 23:20) Hives Date of admission: 12/13/16 17:22 Primary care physician: Cole Chapman Jr, MD Consults: 12/13/16 18:34 Consult to Brake Mechanic [CONS] Routine Reason for SW Consult: Brain CA 12/13/16 18:59 Consult to Pulmonology [CONS] Routine Consulting Provider: [facility] [place] Reason for Consult: Altered mental status pt intubated in ED Call Completed: Yes 12/15/16 09:10 Consult to Nutrition [CONS] Routine Comment: Consulting Provider: NUTRITION Reason for Dietary Consult: TF Start and Manage 12/15/16 12:08 Consult to Neurology [CONS] Routine Consulting Provider: [facility] Reason for Consult: 36yo found unresponsive. sedation off, not following commands. Time Notified: 12:08 Call Completed: Yes 12/17/16 12:34 Consult to Palliative Care [CONS] Routine Comment: Consulting Provider: [facility] Reason for Consult: discussing code status Call Completed: No 12/28/16 13:30 Consult to Surgery [CONS] Routine Consulting Provider: [facility] Reason for Consult: PEG tube placement Call Completed: Yes 12/29/16 10:00 consult to local operator [Consult to Nutrition] [CONS] Routine Comment: Mother undecided on PEG, wants NG feed til decides Consulting Provider: NUTRITION Reason for Dietary Consult: TF Start and Manage 12/30/16 16:37 Consult to Wound Care [CONS] Routine Reason for Consult: Skin breakdown in skin folds- axillary, inguinal, sacral in a patient with persistent vegetative state Call Completed: No 01/03/17 12:05 Consult to Infectious Diseases [CONS] Routine Consulting Provider: Infectious Disease [place] Reason for Consult: Abx management Call Completed: Yes Discharging clinician: Robert Melgar Anticipated date of discharge: 01/08/17 - Patient Status Disposition: Transfer SNF Condition: Critical Functional capacity at discharge: bed bound Overall status at discharge: other (Pt is in vegetative status) - Discharge Instructions Follow Up With: Cole Chapman Jr, MD [Primary Care Provider] - (web request sent on 01/02/17) - Diet and Activity Activity: other (Comfort care only) Diet: other Interval History: Ms. Perez is a 36 year old female history of pontine glioma status post radiation therapy, cigarette smoking, aspiration pneumonia, dysphagia, COPD on 4 L home oxygen presented to ER with chief complaint of shortness of breath. Patient was found by her 14-year-old daughter unresponsive and EMS was called. EMS upon arrival noted the patient oxygen saturation 98% and spoke with the paramedics. Grandmother states that the patient difficulty breathing over the past several days and family at home has been sick having upper rest of her symptoms. Furthermore upon arrival patient was noted to be in acute respiratory distress, altered consciousness and history is not obtained from her. She was tachypneic , generally purplish cyanotic coloration. Patient was emergently intubated. Thereafter she had bradycardia, was given atropine and epinephrine however bradycardia worsened and patient did not have a palpable femoral carotid pulse. Patient went to cardiac arrest. He was found to be in ventricular tachycardia and cardioverted twice with 200 J and then 360 J and ROSC obtained. Patient's EKG showed narrow complex tachycardia with a rate of 172. She was given 300 of amiodarone during the code. Postcode patient's EKG showed sinus tachycardia with rate of 111. Patient had a CTA which was negative for PE. Patient had a right femoral central line placed. Hospital course: Ms. Perez is a 36 year old female admitted for cardiac arrest S/P ACLS, aspiration pneumonia on 12/13/16. She was admitted to ICU and treated with antibiotics. Her mental status does not improve after treatment. On 12/16/16 Neurology evaluation saw patient and consider anoxic brain injury, suspect pt may stablized in a persistent vagetative status. Palliative care consult was called and evaluated pt. Patient's mental status did not improve and family agree to extubate patient. Patient was extubated on 12/27/16 and moved out of ICU. She was treated with antibiotics for aspiration pneumonia in the regular floor. ID consult was called to help with antibiotic management. Finally, family decided to pursue comfort care only, tube feeding and antibiotic has been stopped. Patient will transfer to ECF and continue comfort care. I saw and examined the patient today. She is still negative responsive. Open eyes spontaneously. Pupil is dilated on right side, minimal respond to light. Patient will discharge to ECF for further comfort care. - Time Spent with Patient Total time spent providing and/or coordinating discharge services: 40 min Greater than 30 minutes - Constitutional Vitals: Temp Pulse Resp BP Pulse Ox 98.5 F 115 16 130/91 93 01/08/17 11:14 01/08/17 11:14 01/08/17 11:14 01/08/17 11:14 01/08/17 11:14 General appearance: Present: A&O X 0 (somnolent, comatose) - Head Head exam: Present: atraumatic, normocephalic - Eye Eye exam: Present: conjuntiva pink, sclera anicteric Pupils: Present: unequal - Neck Neck exam general surgery: Present: supple, trachea midline. Absent: lymphadenopathy - Respiratory Respiratory exam: Present: CTAB, rhonchi (B/L). Absent: accessory muscle use, rales, wheezes - Cardiovascular Cardiovascular exam: Present: RRR, +S1, +S2. Absent: diastolic murmur, gallop, rubs, systolic murmur - GI/Abdominal GI/Abdominal exam: Present: normal bowel sounds, soft, no peritoneal signs. Absent: distended, tenderness - Extremities Exam Extremities exam: Present: warm, radial pulses palpable and symetrical. Absent : calf tenderness, cyanotic, pedal edema - Neurological Exam Neurological exam: Absent: facial droop - Skin Skin exam: Present: dry, intact, rash - VTE Documentation of Mechanical Device: Intermittent pneumatic compression device
--- NOTE | 2017-01-08 15:47 | Physician Discharge Referral ---
ExtendedCare Referral Info Transfer To: [facility] Provider in Charge after Transfer: Other - Diagnosis (1) Aspiration pneumonia Status: Suspected (2) Cardiac arrest Status: Resolved (3) Anoxic brain injury Status: Acute (4) Glioblastoma Status: Acute (5) Chronic use of steroids Status: Chronic (6) Rash Status: Acute - Transfer Medications Home Medications: Albuterol Sulfate [Albuterol Inhaler] 2 puff IH Q4HR PRN #1 unit 11/15/15 [Rx] Docusate Sodium [Dok] 250 mg PO DAILY #30 capsule 03/09/16 [Rx] Folic Acid 1 mg PO DAILY 06/17/16 [History] Simethicone [Gas-X] 80 mg PO DAILY #30 tab.chew 08/16/16 [Rx] Nystatin [Nystatin Suspension] 5 ml PO QID #120 ml 09/17/16 [Rx] Calcium Carbonate/Vitamin D3 [Calcium 500-Vit D3 200 Tablet] 1 each PO DAILY # 30 tablet 10/25/16 [Rx] Beclomethasone Diprop 80mcg [Qvar 80 mcg] 1 puff IH BID #1 aer.w.adap 11/13/16 [ Rx] Bisacodyl [Dulcolax] 5 - 10 mg PO DAILY PRN #60 tablet 11/13/16 [Rx] Dexamethasone [Decadron] 4 mg PO BID #60 tablet 11/13/16 [Rx] Famotidine [Pepcid] 20 mg PO DAILY #30 tablet 11/13/16 [Rx] ALPRAZolam [Xanax 1 MG Tablet] 1 - 2 mg PO TID PRN #126 tablet 11/23/16 [Rx] HYDROcodone/Acet 10/325 mg [[place] 10-325 mg] 1 - 2 tab PO Q4HR PRN #240 tab [Rx] Citalopram [CeleXA] 20 mg PO DAILY #30 tablet 12/04/16 [Rx] Gabapentin [Neurontin] 800 mg PO QID #120 tablet 12/04/16 [Rx] Ascorbic Acid [Vitamin C] 500 mg PO DAILY 12/13/16 [History] Ondansetron ODT [Zofran ODT] 4 mg PO Q6H PRN 12/13/16 [History] Dexamethasone [Decadron] 3 mg IVP BID vial 01/08/17 [Rx] FentaNYL PATCH [Duragesic] 25 mcg TD Q72H patch.td72 01/08/17 [Rx] HYDROmorphone (PF) [Dilaudid] 1 mg IVP Q1H PRN #0 syringe 01/08/17 [Rx] LORazepam [Ativan] 1 mg IVP Q8HR PRN #0 vial 01/08/17 [Rx] Nystatin POWDER [Nystop] 1 appl TP TID bottle 01/08/17 [Rx] Scopolamine Patch [Transderm-Scop] 1.5 mg TD Q72H patch.td72 01/08/17 [Rx] Allergies/Adverse Reactions: Allergies ethinyl estradiol [From Ortho Tri-Cyclen (28)] Allergy (Verified 11/01/16 23:20) Hives norgestimate [From Ortho Tri-Cyclen (28)] Allergy (Verified 11/01/16 23:20) Hives - Respiratory Orders Oxygen / L per min (4) Smoking Cessation: Smoking cessation has been advised. For more information, call the [place] Tobacco Quit Line at 5-928-RWEQ-NOW. - Advance Directives Code Status: DNR-Comfort Care CERTIFICATION: I certify that the transfer of the above named patient to an Extended Care Facility is necessary for the continuing treatment of the diagnosis listed. The above information is true and accurate reflection of patient's current condition. Confidential - Redisclosure prohibited without a patient's written consent.
== END 2017-01-08 17:55 | DRG 710 ==
LOC: EMEROO 14:36 → ICNU 17:22 → SUATTDRO 17:22 → ICNU 17:35 → 2ANU 12-28 01:03
PROVIDERS: ADMIT Nurse Practitioner Family; ATTEND Internal Medicine